=== PATIENT | female | born 1950 | race Caucasian/White ===

== ENCOUNTER 2016-12-22 21:40 | Inpatient (IN) | payer OTHER ==
[~2016-12-22] VITALS: Ht 160 cm; Wt 98.7 kg
[~2016-12-22 21:40] MED LIST: ALBINS/ INH; ALBU18002 PO; CHOL400T PO; CYAN100T PO; GABA-112 PO; HYDR25TA4 PO; LOSA50TA6 PO; SIMV40TA4 PO; SPRIN/30 INH
[2016-12-22] MEDS ORDERED: SODIUM CHLORIDE 0.9% 500ML 500 ML IV STA (22:03)
[2016-12-22] MEDS ORDERED: METHYLPREDNISOLONE 125 MG VIAL IV STA (22:03)
[2016-12-22] MEDS ORDERED: AZITHROMYCIN 250 MG TAB PO STA (22:03)
[2016-12-22 22:11] LABS: BASO % 0.3 %; BASO ABS # 0.04 K/uL (0-0.2); COMPLETE YES; EOS % 14.8 %; HEMATOCRIT 38.6 % (37-47); IG% 0.3 %; LYMPH % 26.2 %; LYMPH ABS # 3.56 K/uL (1.2-3.4); MEAN CELL VOLUME 89.1 fL (80-100); MEAN CORPUSCULAR HEMOGLOBIN 29.6 pg (25-34); MEAN CORPUSCULAR HGB CONC 33.2 g/dl (32-36); MEAN PLATELET VOLUME 9.9 fL (7.4-10.4); MONO % 8.7 %; NEUT % 49.7 %; PLATELET COUNT 290 K/uL (130-400); RED BLOOD COUNT 4.33 M/uL (4.2-5.4); WHITE BLOOD COUNT 13.61 K/uL (4.8-10.8)
[2016-12-22] MEDS ORDERED: ALBUT/IPRATROP 3MG/0.5MG NEB 3 ML VIAL INH ONE (22:15)
[2016-12-22 22:20] LABS: BUN/CREATININE RATIO 13.9 (10-20); CALCIUM 9.3 mg/dl (8.5-10.1); CREATININE 0.87 mg/dl (0.60-1.20); POTASSIUM 3.2 mmol/L (3.5-5.1)
[2016-12-22 22:23] LABS: PARTIAL THROMBOPLASTIN RATIO 1.2; PROTHROMBIN TIME (PATIENT) 10.7 SECONDS (9.0-12.0)
--- NOTE | 2016-12-22 22:43 | DIAGNOSTIC IMAGING REPORT ---
CHEST ONE VIEW PORTABLE CLINICAL HISTORY: EVALUATE RESPIRATORY DISTRESS.DYSPNEA COMPARISON STUDY: 01/15/2016 FINDINGS: The bones soft tissues and hemidiaphragms are normal. The cardiomediastinal silhouette is normal. The lungs are clear. The pulmonary vasculature is normal. IMPRESSION: Negative chest. The above report was generated using voice recognition software. It may contain grammatical, syntax or spelling errors. Electronically signed by: Omid Gold M.D. 12/22/2016 10:41 PM Dictated Date/Time: 12/22/2016 10:41 PM
[2016-12-22] MEDS ORDERED: ALUMINUM/MAGNESIUM SUSP 30 ML UDC ONE (22:53)
[2016-12-22] MEDS ORDERED: LIDOCAINE HCL 2% VISC SOLN 20 ML UDC ONE (22:53)
[2016-12-22 22:56] VITALS: PULSE 99; O2SAT 95
[2016-12-22 23:14] LABS: URINE APPEARANCE CLEAR (CLEAR); URINE BILIRUBIN NEG (NEG); URINE COLOR YELLOW; URINE EPITHELIAL CELL AUTO 0-5 /lpf (0-5); URINE NITRITE NEG (NEG); URINE PH 8.5 (4.5-7.5); URINE SPECIFIC GRAVITY 1.012 (1.000-1.030); UROBILINOGEN NEG (NEG)
[2016-12-22 23:15] LABS: MANUAL MICROSCOPIC REQUIRED? NO; REVIEW REQ? NO
[2016-12-22] MEDS ORDERED: POTASSIUM CHLORIDE 10 MEQ TABCR PO STA (23:23)
[2016-12-23] VITALS (10 sets, daily range): BP systolic 113–167; BP diastolic 67–84; PULSE 58–122; TEMP 36.3–37; O2SAT 89–97; Ht 160 cm; Wt 98.7 kg
--- NOTE | 2016-12-23 00:41 | EMERGENCY ROOM VISIT NOTE ---
History Report prepared by Mikey: Sharon Zhang Under the Supervision of: Dr. Franky Wilder M.D. First contact with patient: 21:56 Chief Complaint: SHORTNESS OF BREATH Stated Complaint: SOB Nursing Triage Summary: c/o SOB x 1 month and was seen by pcp. pt was told that she has fluid on her lungs. tonight at pt felt very weak, lightheaded and SOB worsened. History of Present Illness The patient is a 66 year old white female with a past medical history of COPD, hypertension, high cholesterol, restless leg who presents to the ED with a cc of waxing and waning SOB beginning 1 month ago. Positive cough productive of white foamy sputum, pain under left breast, back pain. She has been having a hard time having bowel movements. Negative fever, chills, leg swelling. She quit smoking 1.5 years ago. She denies any history of blood clots. She is not on oxygen at home. Source of History: patient Onset: 1 month ago Position: other (global) Quality: other (SOB) Timing: waxes/wanes Associated Symptoms: + cough, + chest pain, + back pain, No fevers, No chills Review of Systems See HPI for pertinent positives and negatives. A total of ten systems were reviewed and were otherwise negative. Past Medical & Surgical Medical Problems: (1) COPD (chronic obstructive pulmonary disease) Family History No pertinent family history stated. Social History Smoking Status: Former Smoker Marital Status: Housing Status: lives with significant other Current/Historical Medications Scheduled Albuterol Sulf (Proventil 0.083% 2.5MG/3ML), 2.5 MG INH Q4 Albuterol Sulfate (Proair Respiclick), 2 PUFF PO QD Cholecalciferol (Vitamin D), 400 MG PO DAILY Cyanocobalamin (Vitamin B-12), 100 MCG PO DAILY Gabapentin (Neurontin), 300 MG PO HS Hydrochlorothiazide (Hctz), 25 MG PO QAM Losartan Potassium (Cozaar), 50 MG PO QAM Simvastatin (Zocor), 40 MG PO QPM Tiotropium [place] (Spiriva Handihaler), 1 CAP INH DAILY Allergies Coded Allergies: No Known Allergies (Unverified , 12/22/16) Physical Exam Vital Signs Date Time Temp Pulse Resp B/P (MAP) Pulse Ox O2 Delivery O2 Flow Rate FiO2 12/23/16 00:49 138 20 143/86 88 Room Air 12/22/16 23:02 99 20 104/89 98 Nebulizer 15.0 12/22/16 23:02 85 Room Air 12/22/16 22:56 99 20 95 Nasal Cannula 1.0 12/22/16 22:09 107 12/22/16 21:54 93 Nasal Cannula 2.0 12/22/16 21:47 93 Room Air 12/22/16 21:46 95 Nasal Cannula 2.0 12/22/16 21:45 36.8 112 20 158/81 92 Room Air Physical Exam GENERAL: Awake, alert, well-appearing, NAD HENT: Normocephalic, atraumatic. EYES: Normal conjunctiva. Sclera non-icteric. NECK: Supple. No nuchal rigidity. FROM. RESPIRATORY: Diffuse wheezing throughout CARDIAC: Tachycardic and regular, no MRG ABDOMEN: Soft, NTND, BS+ MSK: No chest wall TTP, no LE edema NEURO: GCS 15, CN 2-12 intact, moves all 4s on command SKIN: No rash or jaundice noted. Medical Decision & Procedures ER Provider Diagnostic Interpretation: Radiology results as stated below per my review and radiologist interpretation: CHEST ONE VIEW PORTABLE CLINICAL HISTORY: EVALUATE RESPIRATORY DISTRESS.DYSPNEA COMPARISON STUDY: 01/15/2016 FINDINGS: The bones soft tissues and hemidiaphragms are normal. The cardiomediastinal silhouette is normal. The lungs are clear. The pulmonary vasculature is normal. IMPRESSION: Negative chest. The above report was generated using voice recognition software. It may contain grammatical, syntax or spelling errors. Electronically signed by: Omid Gold M.D. 12/22/2016 10:41 PM Dictated Date/Time: 12/22/2016 10:41 PM Laboratory Results 12/22/16 21:54 Red Blood Count 4.33, Mean Corpuscular Volume 89.1, Mean Corpuscular Hemoglobin 29.6, Mean Corpuscular Hemoglobin Concent 33.2, Mean Platelet Volume 9.9, Neutrophils (%) (Auto) 49.7, Lymphocytes (%) (Auto) 26.2, Monocytes (%) (Auto) 8.7, Eosinophils (%) (Auto) 14.8, Basophils (%) (Auto) 0.3, Neutrophils # (Auto ) 6.78, Lymphocytes # (Auto) 3.56, Monocytes # (Auto) 1.18, Eosinophils # (Auto ) 2.01, Basophils # (Auto) 0.04 12/22/16 21:54 Test 12/22/16 21:54 12/22/16 22:55 12/23/16 00:53 White Blood Count 13.61 K/uL (4.8-10.8) Red Blood Count 4.33 M/uL (4.2-5.4) Hemoglobin 12.8 g/dL (12.0-16.0) Hematocrit 38.6 % (37-47) Mean Corpuscular Volume 89.1 fL (80-100) Mean Corpuscular Hemoglobin 29.6 pg (25-34) Mean Corpuscular Hemoglobin Concent 33.2 g/dl (32-36) Platelet Count 290 K/uL (130-400) Mean Platelet Volume 9.9 fL (7.4-10.4) Neutrophils (%) (Auto) 49.7 % Lymphocytes (%) (Auto) 26.2 % Monocytes (%) (Auto) 8.7 % Eosinophils (%) (Auto) 14.8 % Basophils (%) (Auto) 0.3 % Neutrophils # (Auto) 6.78 K/uL (1.4-6.5) Lymphocytes # (Auto) 3.56 K/uL (1.2-3.4) Monocytes # (Auto) 1.18 K/uL (0.11-0.59) Eosinophils # (Auto) 2.01 K/uL (0-0.5) Basophils # (Auto) 0.04 K/uL (0-0.2) RDW Standard Deviation 49.0 fL (36.4-46.3) RDW Coefficient of Variation 15.2 % (11.5-14.5) Immature Granulocyte % (Auto) 0.3 % Immature Granulocyte # (Auto) 0.04 K/uL (0.00-0.02) Prothrombin Time 10.7 SECONDS (9.0-12.0) Prothromb Time International Ratio 1.0 (0.9-1.1) Activated Partial Thromboplast Time 30.6 SECONDS (21.0-31.0) Partial Thromboplastin Ratio 1.2 Anion Gap 9.0 mmol/L (3-11) Est Creatinine Clear Calc Drug Dose 72.0 ml/min Estimated GFR () 80.5 Estimated GFR (Non- 69.4 BUN/Creatinine Ratio 13.9 (10-20) Calcium Level 9.3 mg/dl (8.5-10.1) Total Bilirubin 0.3 mg/dl (0.2-1) Aspartate Amino Transf (AST/SGOT) 24 U/L (15-37) Alanine Aminotransferase (ALT/SGPT) 34 U/L (12-78) Alkaline Phosphatase 101 U/L (45-117) Troponin I 0.017 ng/ml (0-0.045) Pro-B-Type Natriuretic Peptide 57 pg/ml (0-900) Total Protein 7.0 gm/dl (6.4-8.2) Albumin 3.5 gm/dl (3.4-5.0) Globulin 3.5 gm/dl (2.5-4.0) Albumin/Globulin Ratio 1.0 (0.9-2) Urine Color YELLOW Urine Appearance CLEAR (CLEAR) Urine pH 8.5 (4.5-7.5) Urine Specific [place] 1.012 (1.000-1.030) Urine Protein NEG (NEG) Urine Glucose (UA) NEG (NEG) Urine Ketones NEG (NEG) Urine Occult Blood NEG (NEG) Urine Nitrite NEG (NEG) Urine Bilirubin NEG (NEG) Urine Urobilinogen NEG (NEG) Urine Leukocyte Esterase TRACE (NEG) Urine WBC (Auto) 1-5 /hpf (0-5) Urine RBC (Auto) 0-4 /hpf (0-4) Urine Hyaline Casts (Auto) 0 /lpf (0-5) Urine Epithelial Cells (Auto) 0-5 /lpf (0-5) Urine Bacteria (Auto) NEG (NEG) Laboratory results reviewed by me Medications Administered Medications (Trade) Dose Ordered Sig/Juan Carlos Route Start Time Stop Time Status Last Admin Dose Admin Albuterol/ Ipratropium (Duoneb) 12 ml ONE ONCE INH 12/22/16 22:15 12/22/16 22:16 DC 12/22/16 22:55 12 ML Azithromycin (Zithromax Tab) 500 mg NOW STAT PO 12/22/16 22:03 12/22/16 22:05 DC 12/22/16 22:14 500 MG Sodium Chloride 500 ml @ 999 mls/hr Q31M STAT IV 12/22/16 22:03 12/22/16 22:33 DC 12/22/16 22:14 999 MLS/HR Al Hydroxide/Mg Hydroxide (Maalox Susp) 30 ml STK-MED ONCE .ROUTE 12/22/16 22:53 12/22/16 22:54 DC 12/22/16 22:56 30 ML Lidocaine HCl (Viscous Lidocaine 2% Soln) 20 ml STK-MED ONCE .ROUTE 12/22/16 22:53 12/22/16 22:54 DC 12/22/16 22:56 20 ML Potassium Chloride (Klor-Con M10) 40 meq NOW STAT PO 12/22/16 23:23 12/22/16 23:25 DC 12/23/16 00:38 40 MEQ ECG Indication: SOB/dyspnea Rate (beats per minute): 104 Rhythm: sinus tachycardia Findings: no ectopy, other (normal axis, no STS changes or TWI) ED Course 2157: The patient was evaluated in room B3B. A complete history and physical exam was performed. 2310: I reevaluated the patient. She is feeling better. 0011: I reevaluated the patient. I discussed the test results and treatment plan with her. The patient will be evaluated for further management. 0029: I [facility] the [facility]'s [facility] The patient will be evaluated for further treatment and disposition. Medical Decision Differential diagnosis: Etiologies such as infections, reactive airway disease, pneumonia, pneumothorax , COPD, CHF, cardiac ischemia, pulmonary embolism, musculoskeletal, gastrointestinal, as well as others were entertained. The patient is a 66 year old white female with a past medical history of COPD, hypertension, high cholesterol, restless leg who presents to the ED with a cc of waxing and waning SOB beginning 1 month ago. Patient was seen and evaluated at the bedside. Patient was complaints of shortness of breath beginning insidiously and progressively worsening 1 month. Patient has had a productive cough with white sputum. Patient denies hemoptysis, lower extremity swelling, recent travel. Patient has stated she's been taking some steroids over the last month. Patient states she has follow- up see a gut dropper that she has a history of COPD but is not formally and evaluated by lung physician. Patient has been a nonsmoker since 2015. She was a former smoker. Patient was evaluated with blood work, chest x-ray. Patient was also given IV fluids, do, mag, steroids, and azithromycin. Patient was reassessed and patient's exam improved and the patient was feeling better. Patient was told or hypoxic and required oxygen at baseline. However, the patient was fairly tachycardic in the 130s and 140s. Upon further questioning patient again denies any history of PE or DVT. Her albuterol use is likely somewhat related to her tachycardia however given that it is closer max heart rate I spoke with the hospitalist who agreed to admit the patient for further evaluation and treatment. Patient was admitted. Medication Reconcilliation Current Medication List: was personally reviewed by me Blood Pressure Screening Patient's blood pressure: Normal blood pressure Blood pressure disposition: Did not require urgent referral Consults Time Called: 0023 Consulting Physician: Dr. Hernandez [facility] hospitalist Returned Call: 0029 Discussed the patient's case. The patient will be evaluated for further treatment and disposition. Impression Primary Impression: COPD exacerbation Additional Impressions: Tachycardia Respiratory failure with hypoxia Scribe Attestation The scribe's documentation has been prepared under my direction and personally reviewed by me in its entirety. I confirm that the note above accurately reflects all work, treatment, procedures, and medical decision making performed by me. Departure Information Dispostion Being Evaluated By Hospitalist Referrals Catrachita Ferguson M.D. (MEDICAL) (PCP) Patient Instructions My [facility] Problem Qualifiers Additional Impressions: Respiratory failure with hypoxia Chronicity: acute Qualified Codes: J96.01 - Acute respiratory failure with hypoxia
[2016-12-23] MEDS ORDERED: LACTATED RINGER'S 1000ML 1,000 ML IV ONE (01:00)
[2016-12-23] MEDS ORDERED: DOXYCYCLINE HYCLATE 100 MG CAP PO STA (01:46)
[2016-12-23] MEDS ORDERED: GUAIFENESIN 600 MG TABCR PO STA (01:46)
[2016-12-23 01:51] LABS: ARTERIAL BLD GAS O2 SATURATION 95.2 % (90-95); ARTERIAL BLOOD GAS BASE EXCESS 0.6 mEq/L (-9-1.8); ARTERIAL BLOOD GAS HCO3 24 mmol/L (19-24); ARTERIAL BLOOD GAS PO2 77 mm/Hg (80-95); ARTERIAL BLOOD GAS pH 7.45 (7.35-7.45)
[2016-12-23 01:53] LABS: ALLEN TEST POS (POS)
[2016-12-23 01:56] LABS: O2 ADMINISTRATION ROOM AIR
[2016-12-23] MEDS ORDERED: ACETAMINOPHEN 325 MG TAB PO PRN (02:45)
[2016-12-23] MEDS ORDERED: LEVALBUTEROL/IPRATROPIUM NEB INH PRN (02:45)
[2016-12-23] MEDS ORDERED: TRAMADOL HCL 50 MG TAB PO PRN (02:45)
[2016-12-23] MEDS ORDERED: MoRPHine SULFATE 4 MG/ML 1 ML CARP\\VIAL IV PRN (02:45)
--- NOTE | 2016-12-23 02:47 | Progress Note ---
Progress Note Post Crystalloid Evaluation Date: Dec 23, 2016 Time: 02:50 Subjective Cough productive of white to dull [place] to yellow sputum SOB Physical Exam Vital Signs: Vital Signs Date Time Temp Pulse Resp B/P (MAP) Pulse Ox O2 Delivery O2 Flow Rate FiO2 12/23/16 02:33 117 20 128/70 94 Nasal Cannula 2.0 12/22/16 21:45 36.8 Lungs: + decreased breath sounds Heart: + tachycardia Peripheral Pulse: Normal Skin: Unremarkable Assessment & Plan Presence of: Severe Sepsis Severe sepsis SIRS plus hypoxemia plus lactic acidosis secondary to chronic obstructive pulmonary disease exacerbation/complicated bronchitis CS, doxycycline, nebs, steroids. IVF, Follow lactic acid
[2016-12-23] MEDS ORDERED: OPTIRAY 320 IV PRN (03:00)
[2016-12-23] MEDS ORDERED: LEVALBUTEROL/IPRATROPIUM NEB INH SCH (03:00)
[2016-12-23] MEDS ORDERED: PANTOprazole SOD 40 MG TAB PO ONE (03:00)
[2016-12-23] MEDS ORDERED: LACTATED RINGER'S 1000ML 1,000 ML IV SCH (03:15)
[2016-12-23] MEDS ORDERED: LEVALBUTEROL 1.25MG/0.5ML NEB INH PRN (03:30)
[2016-12-23] MEDS ORDERED: IPRATROPIUM BROMIDE NEB SOLN 0.02% 2.5 ML VIAL INH PRN (03:30)
[2016-12-23] MEDS: BENZONATATE 100MG CAP PO PRN (05:50)
--- NOTE | 2016-12-23 05:51 | DIAGNOSTIC IMAGING REPORT ---
(CHEST FOR PE) ANGIO WITH CT DOSE: 835.45 mGy.cm HISTORY: Chest pain dyspnea TECHNIQUE: Multiaxial CT images of the chest were performed following the intravenous administration of contrast to evaluate the pulmonary arteries. Maximal intensity projection images were also obtained. A dose lowering technique was utilized adhering to the principles of ALARA. COMPARISON STUDY: None. FINDINGS: Moderate ectasia thoracic aorta. No evidence for dissection. Small hiatal hernia. The pulmonary vasculature enhances appropriately. The lungs are considered clear. No focal infiltrate. IMPRESSION: No evidence for pulmonary embolus. The lungs are clear. Small hiatal hernia. The above report was generated using voice recognition software. It may contain grammatical, syntax or spelling errors. Electronically signed by: Omid Gold M.D. 12/23/2016 5:50 AM Dictated Date/Time: 12/23/2016 5:47 AM
[2016-12-23 05:59] LABS: BASO % 0.1 %; BASO ABS # 0.01 K/uL (0-0.2); COMPLETE YES; EOS % 0.6 %; HEMATOCRIT 37.5 % (37-47); IG% 0.6 %; LYMPH % 8.9 %; LYMPH ABS # 0.96 K/uL (1.2-3.4); MEAN CELL VOLUME 89.7 fL (80-100); MEAN CORPUSCULAR HEMOGLOBIN 29.7 pg (25-34); MEAN CORPUSCULAR HGB CONC 33.1 g/dl (32-36); MEAN PLATELET VOLUME 9.9 fL (7.4-10.4); NEUT % 88.8 %; PLATELET COUNT 294 K/uL (130-400); RED BLOOD COUNT 4.18 M/uL (4.2-5.4); WHITE BLOOD COUNT 10.75 K/uL (4.8-10.8)
[2016-12-23 06:17] LABS: INFLUENZA A PCR Neg for Influ A (NEG); INFLUENZA B PCR Neg for Influ B (NEG)
[2016-12-23 06:23] LABS: BUN/CREATININE RATIO 9.3 (10-20); CALCIUM 9.1 mg/dl (8.5-10.1); CREATININE 0.97 mg/dl (0.60-1.20); POTASSIUM 3.6 mmol/L (3.5-5.1)
[2016-12-23] MEDS: IPRATROPIUM BROMIDE NEB SOLN 0.02% 2.5 ML VIAL INH SCH ×3 (07:17→19:40)
[2016-12-23] MEDS: LEVALBUTEROL 1.25MG/0.5ML NEB INH SCH ×3 (07:18→19:40)
[2016-12-23] MEDS: GUAIFENESIN SUGAR FREE 100 MG/5 ML UDC PO PRN (07:40)
[2016-12-23] MEDS: ENOXAPARIN 40 MG/0.4 ML SYR SC SCH (08:30)
[2016-12-23] MEDS: LOSARTAN POTASSIUM 50 MG TAB PO SCH (08:30)
--- NOTE | 2016-12-23 08:58 | HISTORY & PHYSICAL EXAMINATION ---
DATE OF ADMISSION: 12/23/2016 PRIMARY CARE PHYSICIAN: Dr. Ferguson. CHIEF COMPLAINT: Cough, shortness of breath. HISTORY OF PRESENT ILLNESS: History obtained from the patient and records. Medical history significant for COPD, hypertension, past tobacco abuse, reflux. In the last month, the patient noted to have cough productive of clear to white to dull [place] sputum to yellow sputum, increasing shortness of breath and wheezing, some nasal congestion. Denies aspiration. Outpatient courses of steroids and antibiotics consisting of Augmentin and doxycycline. Last day of prednisone was a few days ago. Transient improvement of symptoms, occasional complaints of pleuritic, left-sided back pain. Uncontrolled reflux symptoms as per patient. Denies flulike symptoms. Recent seasonal flu vaccine. Patient denies unusual leg swelling or weight gain. Outpatient chest x-ray from December 14 showed mild prominence of interstitial markings, no pneumothorax, trace bilateral pleural effusions. Possible need for lung specialist as per recent communication with PCP. Tonight she had worsening symptoms. Patient noted to be hypoxemic at the ER. Patient received azithromycin, DuoNebs, Solu-Medrol for COPD exacerbation. MEDICAL HISTORY: As above. SURGERIES: She has had bilateral tubal ligation. HOME MEDICATIONS: Include simvastatin, losartan, HCTZ, Spiriva, gabapentin, albuterol, Zantac as per patient. ALLERGIES: No known drug allergies. FAMILY HISTORY: There is a family history of heart disease, COPD, colon cancer, and diabetes. PERSONAL AND SOCIAL HISTORY: Past tobacco abuse. No chronic intake of alcoholic beverages. REVIEW OF SYSTEMS: As per HPI, all other ROS negative. PHYSICAL EXAMINATION: VITAL SIGNS: Blood pressure was noted to be 158/81; pulse rate 112, later 130 RR 20; temperature 36.8; sats 88 on room air, later 94 on 2 liters. GENERAL: Noted to be obese, slightly anxious, no overt respiratory distress. SKIN: Normal color, warm. HEENT: [place] palpebral conjuctivae. No ptosis. Dry buccal mucosa. Nasal cannula in place NECK: Short neck, nontender. CHEST: Decreased breath sounds. No chest wall tenderness. CV: Tachycardic, palpable LE pulses. ABDOMEN: Some distention, nontender. EXTREMITIES: No edema, no tenderness, no gross deformities. NEUROLOGIC: Coherent, no gross focality. LABORATORIES: Hemoglobin was noted to be 12.8, hematocrit 38.6, white cell count 13.6, platelets 290. Sodium 141, potassium 3.2, chloride 105, CO2 28, BUN 12, creatinine 0.8, glucose 123. Lactic acid was noted to be 4.8. Chest x-ray, no infiltrate. EKG as per my interpretation, rate 105, sinus tachycardia, T-wave flattening in the lateral leads, low voltage. ASSESSMENT: 1. Severe sepsis SIRS plus hypoxemia plus lactic acidosis secondary to chronic obstructive pulmonary disease exacerbation recurrent symptoms the last few weeks recent outpatient steroid and antibiotic courses uncontrolled GERD possibly contributory to chronic obstructive pulmonary disease exacerbation rule out pulmonary embolism with pleuritic back pain symptoms as precipitant. 2. Hypertension, stable. 3. Hypokalemia secondary to diuretic therapy. 4. Past tobacco abuse. PLAN: PCU supplemental O2 baseline ABG CS, doxycycline, nebs, steroids. IVF, Follow lactic acid Replace potassium. Hold home diuretics for now. PPI trial CT chest, PE study. Pulmonary consult for respiratory failure/recurrent COPD exacerbation. DVT prophylaxis, Lovenox subQ. Full code. MTDD
[2016-12-23] MEDS ORDERED: GABAPENTIN 300 MG CAP PO ONE (10:08)
--- NOTE | 2016-12-23 11:30 | Progress Note ---
Medicine Progress Note Date & Time of Visit: Dec 23, 2016 at 11:10 . Subjective Admitted last night with exacerbation of COPD despite 2 recent outpatient courses of antibiotics + steroids. Feels less SOB today, but has persistent nonproductive cough. No fever. No chest pain. No nausea, vomiting, diarrhea. . Objective Last 8 Hrs Date Time Temp Pulse Resp B/P (MAP) Pulse Ox O2 Delivery O2 Flow Rate FiO2 12/23/16 08:00 93 Nasal Cannula 2.0 12/23/16 07:27 36.8 119 18 123/76 (92) 93 Nasal Cannula 2.0 12/23/16 07:18 115 20 94 Nasal Cannula 3.0 12/23/16 05:32 114 20 94 Nasal Cannula 2.0 12/23/16 04:00 Nasal Cannula 2.0 12/23/16 03:32 37.0 122 20 136/84 89 Room Air Physical Exam: General- no acute distress ENT- no oral thrush Neck- no JVD Lungs- diffuse mild wheezing Heart- RRR, tachy Abdomen- + BS, soft, nontender Extremities- no pretibial edema or calf tenderness Neuro- alert . Laboratory Results: Last 24 Hours Test 12/22/16 21:54 12/22/16 22:55 12/23/16 01:22 12/23/16 01:38 White Blood Count 13.61 K/uL Red Blood Count 4.33 M/uL Hemoglobin 12.8 g/dL Hematocrit 38.6 % Mean Corpuscular Volume 89.1 fL Mean Corpuscular Hemoglobin 29.6 pg Mean Corpuscular Hemoglobin Concent 33.2 g/dl Platelet Count 290 K/uL Mean Platelet Volume 9.9 fL Neutrophils (%) (Auto) 49.7 % Lymphocytes (%) (Auto) 26.2 % Monocytes (%) (Auto) 8.7 % Eosinophils (%) (Auto) 14.8 % Basophils (%) (Auto) 0.3 % Neutrophils # (Auto) 6.78 K/uL Lymphocytes # (Auto) 3.56 K/uL Monocytes # (Auto) 1.18 K/uL Eosinophils # (Auto) 2.01 K/uL Basophils # (Auto) 0.04 K/uL RDW Standard Deviation 49.0 fL RDW Coefficient of Variation 15.2 % Immature Granulocyte % (Auto) 0.3 % Immature Granulocyte # (Auto) 0.04 K/uL Prothrombin Time 10.7 SECONDS Prothromb Time International Ratio 1.0 Activated Partial Thromboplast Time 30.6 SECONDS Partial Thromboplastin Ratio 1.2 Sodium Level 141 mmol/L Potassium Level 3.2 mmol/L Chloride Level 105 mmol/L Carbon Dioxide Level 28 mmol/L Anion Gap 9.0 mmol/L Blood Urea Nitrogen 12 mg/dl Creatinine 0.87 mg/dl Est Creatinine Clear Calc Drug Dose 72.0 ml/min Estimated GFR () 80.5 Estimated GFR (Non- 69.4 BUN/Creatinine Ratio 13.9 Random Glucose 123 mg/dl Calcium Level 9.3 mg/dl Total Bilirubin 0.3 mg/dl Aspartate Amino Transf (AST/SGOT) 24 U/L Alanine Aminotransferase (ALT/SGPT) 34 U/L Alkaline Phosphatase 101 U/L Troponin I 0.017 ng/ml Pro-B-Type Natriuretic Peptide 57 pg/ml Total Protein 7.0 gm/dl Albumin 3.5 gm/dl Globulin 3.5 gm/dl Albumin/Globulin Ratio 1.0 Urine Color YELLOW Urine Appearance CLEAR Urine pH 8.5 Urine Specific [place] 1.012 Urine Protein NEG Urine Glucose (UA) NEG Urine Ketones NEG Urine Occult Blood NEG Urine Nitrite NEG Urine Bilirubin NEG Urine Urobilinogen NEG Urine Leukocyte Esterase TRACE Urine WBC (Auto) 1-5 /hpf Urine RBC (Auto) 0-4 /hpf Urine Hyaline Casts (Auto) 0 /lpf Urine Epithelial Cells (Auto) 0-5 /lpf Urine Bacteria (Auto) NEG Magnesium Level 2.0 mg/dl Thyroid Stimulating Hormone (TSH) 1.000 uIu/ml Arterial Blood pH 7.45 Arterial Blood Partial Pressure CO2 35 mmHg Arterial Blood Partial Pressure O2 77 mm/Hg Arterial Blood HCO3 24 mmol/L Arterial Blood Oxygen Saturation 95.2 % Arterial Blood Base Excess 0.6 mEq/L Arterial Blood Gas Delivery ROOM AIR Sammy Test POS Lactic Acid Level 4.8 mmol/L Test 12/23/16 04:45 12/23/16 05:45 12/23/16 05:46 12/23/16 11:03 Influenza Type A (RT-PCR) Neg for Influ A Influenza Type A Antigen Neg for Influ A Influenza Type B Antigen Neg for Influ B Influenza Type B (RT-PCR) Neg for Influ B Sodium Level 142 mmol/L Potassium Level 3.6 mmol/L Chloride Level 108 mmol/L Carbon Dioxide Level 23 mmol/L Anion Gap 11.0 mmol/L Blood Urea Nitrogen 9 mg/dl Creatinine 0.97 mg/dl Est Creatinine Clear Calc Drug Dose 63.8 ml/min Estimated GFR () 70.5 Estimated GFR (Non- 60.9 BUN/Creatinine Ratio 9.3 Random Glucose 170 mg/dl Calcium Level 9.1 mg/dl White Blood Count 10.75 K/uL Red Blood Count 4.18 M/uL Hemoglobin 12.4 g/dL Hematocrit 37.5 % Mean Corpuscular Volume 89.7 fL Mean Corpuscular Hemoglobin 29.7 pg Mean Corpuscular Hemoglobin Concent 33.1 g/dl Platelet Count 294 K/uL Mean Platelet Volume 9.9 fL Neutrophils (%) (Auto) 88.8 % Lymphocytes (%) (Auto) 8.9 % Monocytes (%) (Auto) 1.0 % Eosinophils (%) (Auto) 0.6 % Basophils (%) (Auto) 0.1 % Neutrophils # (Auto) 9.55 K/uL Lymphocytes # (Auto) 0.96 K/uL Monocytes # (Auto) 0.11 K/uL Eosinophils # (Auto) 0.06 K/uL Basophils # (Auto) 0.01 K/uL RDW Standard Deviation 49.7 fL RDW Coefficient of Variation 15.2 % Immature Granulocyte % (Auto) 0.6 % Immature Granulocyte # (Auto) 0.06 K/uL Lactic Acid Level 5.8 mmol/L Date/Time Source Procedure Growth Status 12/23/16 01:38 Blood Blood Culture Pending Received 12/23/16 01:22 Blood Blood Culture Pending Received Assessment & Plan EXACERBATION OF ASTHMA No pulmonary infiltrates on either plain films or CT. O2 sats as low as 85% on RA in ED. Received IV methylprednisolone, nebs, antibiotics with improvement. Currently receiving prednisone 40 mg daily, levalbuterol / ipratropium nebs, doxycycline. Pulmonary Medicine consulted. ELEVATED SERUM LACTATE Serum lactate 4.8, 5.8. Does not appear to be septic. Elevated lactate could be secondary to albuterol per Pulmonary Medicine. Procalcitonin ordered- results pending. HYPOKALEMIA Serum potassium 3.2 at time of admission. Could have potassium loss secondary to HCTZ as well as extra --> intracellular shift secondary to albuterol. Replace. Follow. HYPERTENSION Holding HCTZ due to exacerbation of asthma + hypokalemia. Continue losartan. GERD Continue PPI. VTE PROPHYLAXIS SQ enoxaparin. Ambulate. DISPOSITION Expected discharge to home. Family Medicine follow-up with Dr. Ferguson. . Current Inpatient Medications: Current Inpatient Medications Medications (Trade) Dose Ordered Sig/Juan Carlos Route Start Time Stop Time Status Last Admin Dose Admin Doxycycline Hyclate (Vibramycin Cap) 100 mg BID PO 12/23/16 21:00 12/30/16 20:59 Guaifenesin (Mucinex Contr Rel Tab) 600 mg Q12 PO 12/23/16 21:00 01/22/17 20:59 Ioversol (Optiray 320) 125 ml UD PRN IV 12/23/16 03:00 12/27/16 02:59 Enoxaparin Sodium (Lovenox Inj) 40 mg Q24H SC 12/23/16 09:00 01/22/17 08:59 Acetaminophen (Tylenol Tab) 650 mg Q4H PRN PO 12/23/16 02:45 01/22/17 02:44 Gabapentin (Neurontin Cap) 300 mg HS PO 12/23/16 21:00 01/22/17 20:59 Losartan Potassium (coZAAR TAB) 50 mg QAM PO 12/23/16 09:00 01/22/17 08:59 12/23/16 08:30 50 MG Simvastatin (Zocor Tab) 40 mg QPM PO 12/23/16 21:00 01/22/17 20:59 Prednisone (PredniSONE TAB) 40 mg DAILY PO 12/23/16 09:00 12/28/16 08:59 12/23/16 08:30 40 MG Morphine Sulfate (MoRPHine SULFATE INJ) 4 mg Q3H PRN IV 12/23/16 02:45 01/06/17 02:44 Tramadol HCl (Ultram Tab) not relieved by tylenol @ Q6H PRN PO 12/23/16 02:45 01/22/17 02:44 Benzonatate (Tessalon Perles Cap) 100 mg Q8H PRN PO 12/23/16 02:45 01/22/17 02:44 12/23/16 05:50 100 MG Pantoprazole Sodium (Protonix Tab) 40 mg QAM PO 12/24/16 09:00 01/23/17 08:59 Ipratropium [place] (Atrovent 0.02% 0.5MG/2.5ML Neb) 0.5 mg Q6R INH 12/23/16 09:00 01/22/17 08:59 12/23/16 07:17 0.5 MG Levalbuterol (Xopenex 1.25MG/ 0.5ML Neb) 1.25 mg Q6R INH 12/23/16 09:00 01/22/17 08:59 12/23/16 07:18 1.25 MG Ipratropium [place] (Atrovent 0.02% 0.5MG/2.5ML Neb) 0.5 mg Q4H PRN INH 12/23/16 03:30 01/22/17 03:29 12/23/16 05:29 0.5 MG Levalbuterol (Xopenex 1.25MG/ 0.5ML Neb) 1.25 mg Q4H PRN INH 12/23/16 03:30 01/22/17 03:29 12/23/16 05:29 1.25 MG Guaifenesin (Robitussin Sugar Free Syrup) 100 mg Q6H PRN PO 12/23/16 06:30 01/22/17 06:29 12/23/16 07:40 100 MG
--- NOTE | 2016-12-23 14:14 | Pulmonary Consultation ---
History General Date of Service: Dec 23, 2016. Stated Complaint: Sepsis HPI The patient is a 66 year old female who presents to [facility] with complaints of Sepsis. The patient's primary care provider is Catrachita Ferguson M.D. (MEDICAL). Mrs. Garcia is a 60-year-old female who carries a diagnosis of COPD (FEV1 unknown, she is on Spiriva as well as albuterol) who presents with 1 month history of cough and productive sputum. She describes the sputum as white to moreland in color, sometimes yellow. Her symptoms are associated with increased shortness of breath, wheezing, chest tightness and pleuritic chest pain . She also admits to intermittent nasal congestion, increased GERD symptoms. Patient denies any hemoptysis. She denies any paroxysmal nocturnal dyspnea, lower extremity edema or orthopnea. She denies any sick contacts. She recently drove to [employer] from December 11-. She saw her primary care physician who prescribed her course of antibiotics consisting of Augmentin and doxycycline as well as a steroid taper for which she finished a few days ago. A chest x-ray done on 12/14/2016 showed increased interstitial markings, and trace to small bilateral pleural effusions. She had mild improvement of her symptoms. She does admit to recent weight gain of about 30 lbs over the last year, which was precipitated by loss of her son in February. Yesterday she says that her symptoms worsened and she came to the ER for further evaluation. From her respiratory standpoint her home medications include Spiriva and albuterol. Initial vital signs on arrival to the ER were temperature 36.8, pulse 112, respiratory rate of 20, blood pressure 158/81, saturating 92% on room air. She was placed on 2 L nasal cannula and pulse oximetry increased to 95%. Laboratory data showed a white blood cell count of 13.6, hemoglobin is 12, platelet count of 290. Chemistry significant for potassium of 3.2, BUN and creatinine were within normal limits. Random glucose 123. Liver function panel and coags were within normal limits. Troponin 0.017, pro BNP 57. Albumin 3.5. ABG was 7.45/35/77/24/95.2% on room air. Lactate was 4.8. Repeat this morning 5.8. Chest x-ray shows no cardiopulmonary disease. CT chest was negative for pulmonary embolism. Influenza A and B PCR is negative. Blood cultures are pending. In the ER she received 500 mL normal saline bolus, Ringer's lactate 2L, Solu- Medrol 125 mg 1 dose, azithromycin 500 mg by mouth 1 dose, doxycycline 100 mg by mouth and guaifenesin 600 mg 1 dose, DuoNeb 12 mg 1 dose, lidocaine viscous 20 mg, Maalox suspension, potassium chloride 40 mEq. She was admitted for COPD exacerbation. Continues on Tessalon Perles, Xopenex and ipratropium every 4 hours and when necessary, guaifenesin 100 mg every 6 hours when necessary, prednisone 40 mg daily, and doxycycline 100 mg twice a day. Vital signs since admission show a MAXIMUM TEMPERATURE of 37, blood pressure 123/76 to 144/87, pulse 114-138, pulse oximetry 88-95% on 2-3 L nasal cannula. Historian: patient, family Onset: last week Severity: moderate Complaint Status: persistent Review of Systems Constitutional: reports: as stated in HPI Eyes: reports: as stated in HPI ENT: reports: as stated in HPI Cardiovascular: reports: as stated in HPI Respiratory: reports: as stated in HPI Gastrointestinal: reports: as stated in HPI Genitourinary - Female: reports: as stated in HPI Musculoskeletal: reports: as stated in HPI Integumentary: reports: as stated in HPI Neurologic: reports: as stated in HPI Psychiatric: reports: as stated in HPI Endocrine: as stated in HPI Hematologic / Lymphatic: as stated in HPI Allergic / Immunologic: as stated in HPI All Other Symptoms All Other Systems: Reviewed and Negative Past Medical History Past Medical History: COPD Hypertension Gastric reflux Past Surgical History: History of tubal ligation. Family History His family history of heart disease, COPD, colon cancer and diabetes. Social History She has previous history of tobacco use disorder. She denies any alcohol or illicit drug use. Hx Tobacco Use In Past Year?: No Smoking Status: Former Smoker Marital status: History of MDRO History of MDRO: No Allergies Coded Allergies: No Known Allergies (Unverified , 12/22/16) Current Medications Reported Home Medications Medications Dose Route/Sig Max Daily Dose Days Date Category Vitamin D (Cholecalciferol) 400 Unit Tab 400 Mg PO DAILY 01/15/16 Reported Vitamin B-12 (Cyanocobalamin) 100 Mcg Tab 100 Mcg PO DAILY 01/15/16 Reported Proventil 0.083% 2.5MG/3ML (Albuterol Sulf) 2.5 Mg/3 Ml Nebu 2.5 Mg INH Q4 01/15/16 Reported Zocor (Simvastatin) 40 Mg Tab 40 Mg PO QPM 01/15/16 Reported Hctz (Hydrochlorothiazide) 25 Mg Tab 25 Mg PO QAM 01/15/16 Reported Proair Respiclick (Albuterol Sulfate) 108 Mcg/Act Aer 2 Puff PO QD 01/15/16 Reported Cozaar (Losartan Potassium) 50 Mg Tab 50 Mg PO QAM 01/15/16 Reported Neurontin (Gabapentin) 100 Mg Cap 300 Mg PO HS 01/15/16 Reported Spiriva Handihaler (Tiotropium Wagoner) 30 Puff/540 Mcg Aerp 1 Cap INH DAILY 01/15/16 Reported Physical Physical Exam Vital Signs: Date Time Temp Pulse Resp B/P (MAP) Pulse Ox O2 Delivery O2 Flow Rate FiO2 12/23/16 07:27 36.8 119 18 123/76 (92) 93 Nasal Cannula 2.0 12/23/16 07:18 115 20 94 Nasal Cannula 3.0 12/23/16 05:32 114 20 94 Nasal Cannula 2.0 12/23/16 04:00 Nasal Cannula 2.0 12/23/16 03:32 37.0 122 20 136/84 89 Room Air 12/23/16 02:33 117 20 128/70 94 Nasal Cannula 2.0 12/23/16 01:19 137 20 144/87 95 Room Air 12/23/16 00:49 138 20 143/86 88 Room Air 12/22/16 23:02 99 20 104/89 98 Nebulizer 15.0 12/22/16 23:02 85 Room Air 12/22/16 22:56 99 20 95 Nasal Cannula 1.0 12/22/16 22:09 107 12/22/16 21:54 93 Nasal Cannula 2.0 12/22/16 21:47 93 Room Air 12/22/16 21:46 95 Nasal Cannula 2.0 12/22/16 21:45 36.8 112 20 158/81 92 Room Air General Appearance: WELL-APPEARING, WD/WN, NO APPARENT DISTRESS Head: NORMOCEPHALIC, ATRAUMATIC Eyes: PERRLA, NO DISCHARGE, EOMI, SCLERAE NORMAL, CONJUNCTIVAE NORMAL ENT: NORMAL MOUTH EXAM, NORMAL THROAT EXAM Neck: NORMAL RANGE OF MOTION, NO TENDERNESS, TRACHEA MIDLINE, NO STRIDOR, SUPPLE Respiratory: CLEAR TO AUSCULTATION (prolonged expiratory phase, with faint expiratory wheezes.), NO RESPIRATORY DISTRESS Cardiovasular: REGULAR RATE/RHYTHM, NORMAL S1S2, NO M/G/R Abdomen: NON TENDER, NORMAL BOWEL SOUNDS, NO REBOUND, other (obese abdomen) Back: NORMAL INSPECTION, NO MIDLINE TENDERNESS Upper Extremities: NO EDEMA, NO DEFORMITY, NORMAL ROM, other (no clubbing, no cyanosis) Lower Extremities: NO EDEMA, NO DEFORMITY, NORMAL ROM Pulses: dorsalis pedis (R) (2+), dorsalis pedis (L) (2+) Neuro: ALERT, ORIENTED x 3, NORMAL SENSATION, NORMAL CEREBELLAR EXAM, NORMAL SPEECH, NORMAL GAIT, NORMAL MEMORY Psychiatric: NORMAL AFFECT, NO SUICIDAL IDEATION, CONTRACTS FOR SAFETY Diagnostics Labs Results Past 24 Hours Test 12/22/16 21:54 12/22/16 22:55 12/23/16 01:22 12/23/16 01:38 Range/Units White Blood Count 13.61 4.8-10.8 K/uL Red Blood Count 4.33 4.2-5.4 M/uL Hemoglobin 12.8 12.0-16.0 g/dL Hematocrit 38.6 37-47 % Mean Corpuscular Volume 89.1 80-100 fL Mean Corpuscular Hemoglobin 29.6 25-34 pg Mean Corpuscular Hemoglobin Concent 33.2 32-36 g/dl Platelet Count 290 130-400 K/uL Mean Platelet Volume 9.9 7.4-10.4 fL Neutrophils (%) (Auto) 49.7 % Lymphocytes (%) (Auto) 26.2 % Monocytes (%) (Auto) 8.7 % Eosinophils (%) (Auto) 14.8 % Basophils (%) (Auto) 0.3 % Neutrophils # (Auto) 6.78 1.4-6.5 K/uL Lymphocytes # (Auto) 3.56 1.2-3.4 K/uL Monocytes # (Auto) 1.18 0.11-0.59 K/uL Eosinophils # (Auto) 2.01 0-0.5 K/uL Basophils # (Auto) 0.04 0-0.2 K/uL RDW Standard Deviation 49.0 36.4-46.3 fL RDW Coefficient of Variation 15.2 11.5-14.5 % Immature Granulocyte % (Auto) 0.3 % Immature Granulocyte # (Auto) 0.04 0.00-0.02 K/uL Prothrombin Time 10.7 9.0-12.0 SECONDS Prothromb Time International Ratio 1.0 0.9-1.1 Activated Partial Thromboplast Time 30.6 21.0-31.0 SECONDS Partial Thromboplastin Ratio 1.2 Sodium Level 141 136-145 mmol/L Potassium Level 3.2 3.5-5.1 mmol/L Chloride Level 105 98-107 mmol/L Carbon Dioxide Level 28 21-32 mmol/L Anion Gap 9.0 3-11 mmol/L Blood Urea Nitrogen 12 7-18 mg/dl Creatinine 0.87 0.60-1.20 mg/dl Est Creatinine Clear Calc Drug Dose 72.0 ml/min Estimated GFR () 80.5 Estimated GFR (Non- 69.4 BUN/Creatinine Ratio 13.9 10-20 Random Glucose 123 70-99 mg/dl Calcium Level 9.3 8.5-10.1 mg/dl Total Bilirubin 0.3 0.2-1 mg/dl Aspartate Amino Transf (AST/SGOT) 24 15-37 U/L Alanine Aminotransferase (ALT/SGPT) 34 12-78 U/L Alkaline Phosphatase 101 45-117 U/L Troponin I 0.017 0-0.045 ng/ml Pro-B-Type Natriuretic Peptide 57 0-900 pg/ml Total Protein 7.0 6.4-8.2 gm/dl Albumin 3.5 3.4-5.0 gm/dl Globulin 3.5 2.5-4.0 gm/dl Albumin/Globulin Ratio 1.0 0.9-2 Urine Color YELLOW Urine Appearance CLEAR CLEAR Urine pH 8.5 4.5-7.5 Urine Specific Dazey 1.012 1.000-1.030 Urine Protein NEG NEG Urine Glucose (UA) NEG NEG Urine Ketones NEG NEG Urine Occult Blood NEG NEG Urine Nitrite NEG NEG Urine Bilirubin NEG NEG Urine Urobilinogen NEG NEG Urine Leukocyte Esterase TRACE NEG Urine WBC (Auto) 1-5 0-5 /hpf Urine RBC (Auto) 0-4 0-4 /hpf Urine Hyaline Casts (Auto) 0 0-5 /lpf Urine Epithelial Cells (Auto) 0-5 0-5 /lpf Urine Bacteria (Auto) NEG NEG Magnesium Level 2.0 1.8-2.4 mg/dl Thyroid Stimulating Hormone (TSH) 1.000 0.300-4.500 uIu/ml Arterial Blood pH 7.45 7.35-7.45 Arterial Blood Partial Pressure CO2 35 35-46 mmHg Arterial Blood Partial Pressure O2 77 80-95 mm/Hg Arterial Blood HCO3 24 19-24 mmol/L Arterial Blood Oxygen Saturation 95.2 90-95 % Arterial Blood Base Excess 0.6 -9-1.8 mEq/L Arterial Blood Gas Delivery ROOM AIR Sammy Test POS POS Lactic Acid Level 4.8 0.4-2.0 mmol/L Test 12/23/16 04:45 12/23/16 05:45 12/23/16 05:46 Range/Units Influenza Type A (RT-PCR) Neg for Influ A NEG Influenza Type A Antigen Neg for Influ A NEG Influenza Type B Antigen Neg for Influ B NEG Influenza Type B (RT-PCR) Neg for Influ B NEG Sodium Level 142 136-145 mmol/L Potassium Level 3.6 3.5-5.1 mmol/L Chloride Level 108 98-107 mmol/L Carbon Dioxide Level 23 21-32 mmol/L Anion Gap 11.0 3-11 mmol/L Blood Urea Nitrogen 9 7-18 mg/dl Creatinine 0.97 0.60-1.20 mg/dl Est Creatinine Clear Calc Drug Dose 63.8 ml/min Estimated GFR () 70.5 Estimated GFR (Non- 60.9 BUN/Creatinine Ratio 9.3 10-20 Random Glucose 170 70-99 mg/dl Calcium Level 9.1 8.5-10.1 mg/dl White Blood Count 10.75 4.8-10.8 K/uL Red Blood Count 4.18 4.2-5.4 M/uL Hemoglobin 12.4 12.0-16.0 g/dL Hematocrit 37.5 37-47 % Mean Corpuscular Volume 89.7 80-100 fL Mean Corpuscular Hemoglobin 29.7 25-34 pg Mean Corpuscular Hemoglobin Concent 33.1 32-36 g/dl Platelet Count 294 130-400 K/uL Mean Platelet Volume 9.9 7.4-10.4 fL Neutrophils (%) (Auto) 88.8 % Lymphocytes (%) (Auto) 8.9 % Monocytes (%) (Auto) 1.0 % Eosinophils (%) (Auto) 0.6 % Basophils (%) (Auto) 0.1 % Neutrophils # (Auto) 9.55 1.4-6.5 K/uL Lymphocytes # (Auto) 0.96 1.2-3.4 K/uL Monocytes # (Auto) 0.11 0.11-0.59 K/uL Eosinophils # (Auto) 0.06 0-0.5 K/uL Basophils # (Auto) 0.01 0-0.2 K/uL RDW Standard Deviation 49.7 36.4-46.3 fL RDW Coefficient of Variation 15.2 11.5-14.5 % Immature Granulocyte % (Auto) 0.6 % Immature Granulocyte # (Auto) 0.06 0.00-0.02 K/uL Lactic Acid Level 5.8 0.4-2.0 mmol/L Microbiology Results 12/23/16 Blood Culture, Received Pending 12/23/16 Blood Culture, Received Pending Diagnostic Radiology CHEST ONE VIEW PORTABLE 12/23/2016 CLINICAL HISTORY: EVALUATE RESPIRATORY DISTRESS.DYSPNEA COMPARISON STUDY: 01/15/2016 FINDINGS: The bones soft tissues and hemidiaphragms are normal. The cardiomediastinal silhouette is normal. The lungs are clear. The pulmonary vasculature is normal. IMPRESSION: Negative chest. (CHEST FOR PE) ANGIO WITH 12/23/2016 CT DOSE: 835.45 mGy.cm HISTORY: Chest pain dyspnea TECHNIQUE: Multiaxial CT images of the chest were performed following the intravenous administration of contrast to evaluate the pulmonary arteries. Maximal intensity projection images were also obtained. A dose lowering technique was utilized adhering to the principles of ALARA. COMPARISON STUDY: None. FINDINGS: Moderate ectasia thoracic aorta. No evidence for dissection. Small hiatal hernia. The pulmonary vasculature enhances appropriately. The lungs are considered clear. No focal infiltrate. IMPRESSION: No evidence for pulmonary embolus. The lungs are clear. Small hiatal hernia. EKG EKG Sinus tachycardia, ventricular rate 104 bpm. Impression Assessment and Plan Hypoxia Morbid obesity Cough GERD Rhinitis Lactic acidosis Deconditioning Patient has had a one-month history of cough. This could be multifactorial in nature. She carries the diagnosis of COPD however no documented PFTs on record. She is on Spiriva as well as albuterol. She does have history of uncontrolled GERD which may be contributing to her symptoms of nighttime cough. She does have elevated lactate as well as white blood cell count. I do not feel that this is sepsis, most likely a combination of previous corticosteroid use and albuterol, which is precipitating type B lactic acidosis. She has no signs of decreased perfusion to suggest septic shock. ABG shows mild hypoxemia but no acid base disorder. In the meantime I would continue with corticosteroids,bronchodilators and guaifenesin for now. Continue with antibiotics. Send a pro-calcitonin, sputum cultures, follow-up blood cultures and de-escalate accordingly. Recommend incentive spirometry. Continue with Spiriva. She may benefit from an inhaled corticosteroid and long- acting beta agonist upon hospital discharge. I agree with PPI. She may need further workup with GI if resolution of her symptoms. Start fluticasone nasal spray for rhinitis. Continue DVT prophylaxis. Recommended exercise and weight loss. She should follow pulmonary as an outpatient in 1-2 weeks posthospital discharge. She states that she has had full PFTs done as an outpatient, Anjum Maher. Please obtain these records so that we can review. I appreciate the consult.
[2016-12-23] MEDS: GABAPENTIN 300 MG CAP PO SCH (21:49)
[2016-12-23] MEDS: GUAIFENESIN 600 MG TABCR PO SCH (21:49)
[2016-12-23] MEDS: SIMVASTATIN 40 MG TAB PO SCH (21:49)
[2016-12-23] MEDS: DOXYCYCLINE HYCLATE 100 MG CAP PO SCH (21:50)
[2016-12-24] VITALS (12 sets, daily range): BP systolic 122–163; BP diastolic 71–91; PULSE 83–115; TEMP 36.6–37.3; O2SAT 91–97
[2016-12-24] MEDS: IPRATROPIUM BROMIDE NEB SOLN 0.02% 2.5 ML VIAL INH SCH ×4 (01:49→18:57)
[2016-12-24] MEDS: LEVALBUTEROL 1.25MG/0.5ML NEB INH SCH ×4 (01:49→18:56)
[2016-12-24] MEDS: GUAIFENESIN SUGAR FREE 100 MG/5 ML UDC PO PRN ×3 (02:13→21:13)
[2016-12-24 06:02] LABS: BASO % 0.1 %; BASO ABS # 0.01 K/uL (0-0.2); COMPLETE YES; EOS % 0.7 %; HEMATOCRIT 37.4 % (37-47); IG% 0.4 %; LYMPH % 12.1 %; LYMPH ABS # 1.74 K/uL (1.2-3.4); MEAN CELL VOLUME 90.6 fL (80-100); MEAN CORPUSCULAR HEMOGLOBIN 29.1 pg (25-34); MEAN CORPUSCULAR HGB CONC 32.1 g/dl (32-36); MEAN PLATELET VOLUME 10.1 fL (7.4-10.4); MONO % 6.3 %; NEUT % 80.4 %; PLATELET COUNT 328 K/uL (130-400); RED BLOOD COUNT 4.13 M/uL (4.2-5.4); WHITE BLOOD COUNT 14.37 K/uL (4.8-10.8)
[2016-12-24] MEDS: BENZONATATE 100MG CAP PO PRN (06:11)
[2016-12-24 06:17] LABS: BUN/CREATININE RATIO 14.1 (10-20); CALCIUM 9.3 mg/dl (8.5-10.1); CREATININE 0.8 mg/dl (0.60-1.20); POTASSIUM 3.7 mmol/L (3.5-5.1)
[2016-12-24] MEDS: ENOXAPARIN 40 MG/0.4 ML SYR SC SCH (08:08)
[2016-12-24] MEDS: FLUTICASONE PROPIONATE NA SPR 16 GM BTL SCH (08:08)
[2016-12-24] MEDS: GUAIFENESIN 600 MG TABCR PO SCH ×2 (08:09→21:13)
[2016-12-24] MEDS: DOXYCYCLINE HYCLATE 100 MG CAP PO SCH ×2 (08:09→21:13)
[2016-12-24] MEDS: LOSARTAN POTASSIUM 50 MG TAB PO SCH (08:09)
[2016-12-24] MEDS: PANTOprazole SOD 40 MG TAB PO SCH (08:51)
--- NOTE | 2016-12-24 10:56 | ECHOCARDIOGRAM REPORT ---
*NOTICE TO RECEIVING CONSTITUTION PARTY AGENCY This information is strictly Confidential and protected under [place] law. [place] law prohibits you from making any further disclosure of this information unless further disclosure is expressly permitted by the written consent of the person to whom it pertains or is authorized by law. A general authorization for the release of medical or other information is not sufficient for this purpose. Hospital accepts no responsibility if the information is made available to any other person, INCLUDING THE PATIENT. Interpretation Summary * Study Date: 12/24/2016 07:07 AM BP: 167/81 mmHg * Patient Location: [facility]\S\N288\S\1 HR: 112 * : 1950 (M/d/yyyy) Gender: Female Height: 63 in * Age: 66 yrs Ethnicity: [place] Weight: 216 lb * Ordering Physician: Katey Lopez * Referring Physician: Self, Referred * Performed By: Kathei Tee RCS * * Reason For Study: SOB * BSA: 2.0 m2 * The study was technically adequate. * There is no comparison study available. * -- Conclusions -- * Left ventricular systolic function is normal. * Ejection Fraction = 60-65%. * Pulse wave TDI of the anterior and posterior mitral annulas demonstrates normal LV relaxation * No significant valvular disease. Procedure Details * A complete two-dimensional transthoracic echocardiogram was performed (2D, M-mode, Doppler and color flow Doppler). Left Ventricle * The left ventricle is normal in size. * There is no thrombus. * There is normal left ventricular wall thickness. * Ejection Fraction = 60-65%. * Left ventricular systolic function is normal. * The left ventricular wall motion is normal. Right Ventricle * The right ventricle is normal size. * The right ventricular systolic function is normal as assessed by tricuspid annular plane systolic excursion (TAPSE) (normal >1.5 cm). Atria * The left atrial size is normal. * Right atrial size is normal. * There is no evidence of atrial septal defect, but resolution does not allow assessment for a patent foramen ovale. Mitral Valve * The mitral valve is normal. * There is mild mitral annular calcification. * There is no mitral valve stenosis. * Significant mitral regurgitation is absent. Tricuspid Valve * The tricuspid valve is normal. * There is no tricuspid stenosis. * Significant tricuspid regurgitation is absent. Aortic Valve * The aortic valve is not well visualized. * Aortic stenosis is absent. * There is no significant aortic regurgitation. Pulmonic Valve * The pulmonary valve is not well seen, but the Doppler examination is normal without significant regurgitation or stenosis. Great Vessels * The aortic root is normal size. Pericardium/Pleural * There is no pericardial effusion. Great Vessels * Normal inferior vena cava size and collapsability with sniff indicates a normal right atrial pressure of 3 mmHg Left Ventricular Diastolic Function * Pulse wave TDI of the anterior and posterior mitral annulas demonstrates normal LV relaxation MMode 2D Measurements and Calculations IVSd 1.1 cm IVSs 1.3 cm LVIDd 4.7 cm LVIDs 3.2 cm LVPWd 1.1 cm LVPWs 1.3 cm IVS/LVPW 1.0 FS 32.1 % EDV(Teich) 100.4 ml ESV(Teich) 39.9 ml EF(Teich) 60.3 % EDV(cubed) 101.3 ml ESV(cubed) 31.7 ml EF(cubed) 68.7 % % IVS thick 18.0 % % LVPW thick 18.7 % LV mass(C)d 186.9 grams LV mass(C)dI 93.5 grams/m\S\2 LV mass(C)s 135.4 grams LV mass(C)sI 67.8 grams/m\S\2 SV(Teich) 60.6 ml SI(Teich) 30.3 ml/m\S\2 SV(cubed) 69.6 ml SI(cubed) 34.8 ml/m\S\2 Ao root diam 2.6 cm Ao root area 5.2 cm\S\2 ACS 1.5 cm LA dimension 3.2 cm asc Aorta Diam 2.7 cm LA/Ao 1.2 EDV(MOD-sp4) 57.8 ml ESV(MOD-sp4) 26.6 ml EF(MOD-sp4) 54.0 % EDV(MOD-sp2) 69.1 ml ESV(MOD-sp2) 25.7 ml EF(MOD-sp2) 62.8 % SV(MOD-sp4) 31.2 ml SI(MOD-sp4) 15.6 ml/m\S\2 SV(MOD-sp2) 43.4 ml SI(MOD-sp2) 21.7 ml/m\S\2 Doppler Measurements and Calculations Ao V2 max 134.4 cm/sec Ao max PG 7.2 mmHg Ao max PG (full) 2.2 mmHg LV V1 max PG 5.0 mmHg LV V1 max 111.6 cm/sec PA V2 max 100.1 cm/sec PA max PG 4.0 mmHg
[2016-12-24] MEDS ORDERED: LEVALBUTEROL 0.63MG/3 ML NEB INH PRN (13:45)
--- NOTE | 2016-12-24 17:58 | PULMONARY PROGRESS NOTE ---
DATE: 12/24/2016 TIME: 05:10 p.m. SUBJECTIVE: The patient is feeling better. She did relate that she had severe episode of shortness of breath during the nighttime. Apparently, she was given a respiratory treatment and the therapist put the nebulizer in by mask, but did not awaken the patient. When she awakens, she was in a complete panic episode, feeling shortness of breath. Apparently, she had a coughing spell as well. She did desaturate into the 80s. Her heart rate was in the 130s. It took quite a while for that to calm down. It is difficult to say if that was simply a panic attack or nocturnal exacerbation. She feels better this afternoon. She has not had any acute episodes of problems. She has some cough, but no sputum. She is very anxious. OBJECTIVE: GENERAL: The patient is comfortable at rest. Her was with her during this exam. Temperature was 36.6. ENT: Unremarkable. No oral candidiasis was noted. VITAL SIGNS: Heart rate is 114 per minute. The rhythm is regular. Blood pressure is 163/88. LUNGS: Auscultation of the lung perez revealed diminished breath sounds. I heard no active wheezing at present. Her room air oxygen saturation was 91%. Respiratory rate was 20. EXTREMITIES: Showed no cyanosis, clubbing or edema. LABORATORY DATA: White blood cell count today is 14.37. Hemoglobin is 12. Platelets are 328,000. Blood gas done yesterday soon after admission showed a pH of 7.45 with a pCO2 of 35 and a pO2 of 77. Electrolytes show sodium 145, potassium 3.7, chloride 110, and bicarb 28. The BUN is 11 with a creatinine of 0.8. Procalcitonin is less than 0.05. Blood cultures have shown no growth. Sputum Gram stain reported moderate polys with moderate gram positive cocci and few gram positive bacilli with culture pending. IMPRESSIONS: 1. Chronic obstructive pulmonary disease with exacerbation. 2. Obesity. COMMENTS AND RECOMMENDATIONS: The patient states she is feeling better. She did, however, just have an episode during the nighttime. She is on levalbuterol and ipratropium 3 times a day as well as p.r.n. She is on doxycycline and guaifenesin. She is on prednisone 40 mg daily. If she had recurring episodes of acute dyspnea, I would go back to the IV methylprednisolone. Ideally, it would be nice to have the results of pulmonary function tests that she has had done as an outpatient approximately 1 year ago. We will defer this to her hospitalist to determine if that is feasible. I asked the patient if she has ever had a sleep study and she said no. She does snore, but her has not observed any apnea. Nonetheless, the possibility should perhaps still be considered as time goes on. Suggest pulmonary rehab as out patient. KYLEE
[2016-12-24] MEDS: GABAPENTIN 300 MG CAP PO SCH (21:13)
[2016-12-24] MEDS: SIMVASTATIN 40 MG TAB PO SCH (21:13)
--- NOTE | 2016-12-24 23:29 | Progress Note ---
Medicine Progress Note Date & Time of Visit: Dec 24, 2016 at 13:30 . Subjective Persistent nonproductive cough, wheezing, dyspnea. Would like neb schedule adjusted so that she is not awakened at night. No fever. No chest pain. No nausea, vomiting, diarrhea. Has not ambulated outside room yet today. . Objective Vital Signs Label Value Date Time Patient Temperature 36.6 C. 12/24/16725 Temperature Source Oral 12/24/16725 Pulse 109 12/24/16725 Location Brachial Respiratory Rate 18 12/24/16725 Blood Pressure Assessment 122/71 (88) 12/24/16725 Location Right Arm Source NIBP Position Sitting Bedside Pulse Oximetry 92 % 12/24/16725 Item Value Date Time Oxygen Delivery Method Nasal Cannula 12/24/16725 Oxygen Flow Rate 2.0 L/min 12/24/16725 Physical Exam: General- no acute distress Neck- no JVD Lungs- diffuse mild wheezing Heart- RRR, tachycardic Abdomen- + BS, soft, nontender Extremities- no pretibial edema or calf tenderness Neuro- alert . Laboratory Results: Last 24 Hours Test 12/24/16 05:21 White Blood Count 14.37 K/uL Red Blood Count 4.13 M/uL Hemoglobin 12.0 g/dL Hematocrit 37.4 % Mean Corpuscular Volume 90.6 fL Mean Corpuscular Hemoglobin 29.1 pg Mean Corpuscular Hemoglobin Concent 32.1 g/dl Platelet Count 328 K/uL Mean Platelet Volume 10.1 fL Neutrophils (%) (Auto) 80.4 % Lymphocytes (%) (Auto) 12.1 % Monocytes (%) (Auto) 6.3 % Eosinophils (%) (Auto) 0.7 % Basophils (%) (Auto) 0.1 % Neutrophils # (Auto) 11.55 K/uL Lymphocytes # (Auto) 1.74 K/uL Monocytes # (Auto) 0.91 K/uL Eosinophils # (Auto) 0.10 K/uL Basophils # (Auto) 0.01 K/uL RDW Standard Deviation 53.0 fL RDW Coefficient of Variation 15.9 % Immature Granulocyte % (Auto) 0.4 % Immature Granulocyte # (Auto) 0.06 K/uL Sodium Level 145 mmol/L Potassium Level 3.7 mmol/L Chloride Level 110 mmol/L Carbon Dioxide Level 28 mmol/L Anion Gap 7.0 mmol/L Blood Urea Nitrogen 11 mg/dl Creatinine 0.80 mg/dl Est Creatinine Clear Calc Drug Dose 77.3 ml/min Estimated GFR () 89.0 Estimated GFR (Non- 76.8 BUN/Creatinine Ratio 14.1 Random Glucose 105 mg/dl Calcium Level 9.3 mg/dl Chemistry Specimen Hemolysis Date/Time Source Procedure Growth Status 12/24/16 02:20 Sputum Expectorated Sputum Gram Stain - Final Resulted 12/24/16 02:20 Sputum Expectorated Sputum Sputum Culture Pending Resulted Assessment & Plan EXACERBATION OF ASTHMA No pulmonary infiltrates on either plain films or CT. O2 sats as low as 85% on RA in ED. Received IV methylprednisolone, nebs, antibiotics with improvement. Currently receiving prednisone 40 mg daily, levalbuterol / ipratropium nebs, doxycycline. Pulmonary Medicine consulted. ELEVATED SERUM LACTATE Serum lactate 4.8, 5.8. Does not appear to be septic. Elevated lactate could be secondary to albuterol per Pulmonary Medicine. Procalcitonin WNL. Sepsis unlikely. HYPOKALEMIA Serum potassium 3.2 at time of admission. Could have potassium loss secondary to HCTZ as well as extra --> intracellular shift secondary to albuterol. Received replacement. K today = 3.7. Follow. Will need Rx for KCl at time of DC. HYPERTENSION Holding HCTZ due to exacerbation of asthma + hypokalemia. Continue losartan. GERD Continue PPI. VTE PROPHYLAXIS SQ enoxaparin. Ambulate. DISPOSITION Expected discharge to home. Family Medicine follow-up with Dr. Ferguson. . Consultants: Pulmonary . Procedures: CTA chest echo . Current Inpatient Medications: Current Inpatient Medications Medications (Trade) Dose Ordered Sig/Juan Carlos Route Start Time Stop Time Status Last Admin Dose Admin Doxycycline Hyclate (Vibramycin Cap) 100 mg BID PO 12/23/16 21:00 12/30/16 20:59 12/24/16 21:13 100 MG Guaifenesin (Mucinex Contr Rel Tab) 600 mg Q12 PO 12/23/16 21:00 01/22/17 20:59 12/24/16 21:13 600 MG Ioversol (Optiray 320) 125 ml UD PRN IV 12/23/16 03:00 12/27/16 02:59 Enoxaparin Sodium (Lovenox Inj) 40 mg Q24H SC 12/23/16 09:00 01/22/17 08:59 Acetaminophen (Tylenol Tab) 650 mg Q4H PRN PO 12/23/16 02:45 01/22/17 02:44 Gabapentin (Neurontin Cap) 300 mg HS PO 12/23/16 21:00 01/22/17 20:59 12/24/16 21:13 300 MG Losartan Potassium (coZAAR TAB) 50 mg QAM PO 12/23/16 09:00 01/22/17 08:59 12/24/16 08:09 50 MG Simvastatin (Zocor Tab) 40 mg QPM PO 12/23/16 21:00 01/22/17 20:59 12/24/16 21:13 40 MG Prednisone (PredniSONE TAB) 40 mg DAILY PO 12/23/16 09:00 12/28/16 08:59 12/24/16 08:09 40 MG Morphine Sulfate (MoRPHine SULFATE INJ) 4 mg Q3H PRN IV 12/23/16 02:45 01/06/17 02:44 Tramadol HCl (Ultram Tab) not relieved by tylenol @ Q6H PRN PO 12/23/16 02:45 01/22/17 02:44 Benzonatate (Tessalon Perles Cap) 100 mg Q8H PRN PO 12/23/16 02:45 01/22/17 02:44 12/24/16 06:11 100 MG Pantoprazole Sodium (Protonix Tab) 40 mg QAM PO 12/24/16 09:00 01/23/17 08:59 12/24/16 08:51 40 MG Ipratropium [place] (Atrovent 0.02% 0.5MG/2.5ML Neb) 0.5 mg Q4H PRN INH 12/23/16 03:30 01/22/17 03:29 12/23/16 05:29 0.5 MG Guaifenesin (Robitussin Sugar Free Syrup) 100 mg Q6H PRN PO 12/23/16 06:30 01/22/17 06:29 12/24/16 21:13 100 MG Fluticasone Propionate (Flonase Nasal [place]) 1 sprays DAILY NA 12/24/16 09:00 01/23/17 08:59 12/24/16 08:08 1 SPRAYS Levalbuterol (Xopenex 0.63 Mg/ 3 Ml Neb) 0.63 mg Q3H PRN INH 12/24/16 13:45 01/23/17 13:44 Levalbuterol (Xopenex 1.25MG/ 0.5ML Neb) 1.25 mg TIDR INH 12/24/16 21:00 01/23/17 20:59 12/24/16 18:56 1.25 MG Ipratropium [place] (Atrovent 0.02% 0.5MG/2.5ML Neb) 0.5 mg TIDR INH 12/24/16 21:00 01/23/17 20:59 12/24/16 18:57 0.5 MG
[2016-12-25] VITALS (12 sets, daily range): BP systolic 127–152; BP diastolic 76–99; PULSE 85–133; TEMP 36.3–36.7; O2SAT 91–96
[2016-12-25] MEDS: GUAIFENESIN SUGAR FREE 100 MG/5 ML UDC PO PRN ×3 (03:32→22:13)
[2016-12-25 07:22] LABS: BUN/CREATININE RATIO 16.4 (10-20); CALCIUM 9.1 mg/dl (8.5-10.1); CREATININE 0.79 mg/dl (0.60-1.20); POTASSIUM 3.3 mmol/L (3.5-5.1)
[2016-12-25] MEDS: LEVALBUTEROL 1.25MG/0.5ML NEB INH SCH ×3 (07:33→20:14)
[2016-12-25] MEDS: IPRATROPIUM BROMIDE NEB SOLN 0.02% 2.5 ML VIAL INH SCH ×3 (07:33→20:14)
[2016-12-25] MEDS: FLUTICASONE PROPIONATE NA SPR 16 GM BTL SCH (07:54)
[2016-12-25] MEDS: DOXYCYCLINE HYCLATE 100 MG CAP PO SCH ×2 (07:54→22:13)
[2016-12-25] MEDS: GUAIFENESIN 600 MG TABCR PO SCH ×2 (07:55→22:13)
[2016-12-25] MEDS: LOSARTAN POTASSIUM 50 MG TAB PO SCH (07:55)
[2016-12-25] MEDS: PANTOprazole SOD 40 MG TAB PO SCH (07:55)
[2016-12-25] MEDS: ENOXAPARIN 40 MG/0.4 ML SYR SC SCH (07:55)
[2016-12-25] MEDS ORDERED: POTASSIUM CHLORIDE 10 MEQ TABCR PO ONE (10:00)
[2016-12-25] MEDS ORDERED: POLYETHYLENE (MIRALAX) 17 GM PACK PO ONE (10:30)
[2016-12-25] MEDS ORDERED: NURSING DECISION MEDICATION ORDER SCH (10:30)
--- NOTE | 2016-12-25 11:56 | PULMONARY PROGRESS NOTE ---
DATE: 12/25/2016 TIME: 11:40 a.m. SUBJECTIVE: The patient is feeling much better. She is less short of breath. She has ambulated in the hallway twice today without difficulty. She did not have any more episodes during the night of significant issues. OBJECTIVE: GENERAL: The patient appeared comfortable. Temperature is 36.4. EARS, NOSE, THROAT: Unremarkable. VITAL SIGNS: Heart rate remains somewhat elevated at times. traffic monitor specialist shows her heart rate currently is 120. However, when I was seeing her in the room, her heart rate was 96. Blood pressure this morning was 152/90. LUNGS: Lung perez revealed diminished breath sounds but were clear. No wheezing was heard. Saturation was 92% on room air. EXTREMITIES: Showed no cyanosis, clubbing or edema. LABORATORY DATA: Electrolytes today show sodium 144, potassium 3.3, chloride 111, bicarbonate 25. The BUN was 13 with a creatinine of 0.79. IMPRESSIONS: Chronic obstructive pulmonary disease with exacerbation -- much improved. COMMENTS AND RECOMMENDATIONS: The patient is clinically doing well. Respiratory mendez, she is improved. Her heart rates are still marginal. The patient states that Dr. Hill told her she would be likely going home tomorrow. I would have no objection to that based upon the way her exam seems at the present time. The prednisone can be tapered as an outpatient. I would advise pulmonary functions be done in a month or 2 after she is back to baseline.
--- NOTE | 2016-12-25 13:48 | Progress Note ---
Internal Med Progress Note Date of Service: Dec 25, 2016. Provider Documentation: SUBJECTIVE: The patient was seen and examined Clinically better but still complains a lot of wheezing No chest pain ,palpitation OBJECTIVE: Vital Signs-as noted below Exam: General-No distress at rest Eyes-normal ENT-normal Neck-supple Lungs-decreased breath sound bilaterally with moderate wheezing bilaterally Heart-Regular,no murmur appreciated Abdomen-Benign,no masses,bowel sound present Extremities-NO edema Neuro-AAOx3 Lab data as noted below. ASSESSMENT & PLAN: EXACERBATION OF ASTHMA No pulmonary infiltrates on either plain films or CT. O2 sats as low as 85% on RA in ED. Received IV methylprednisolone, nebs, antibiotics with improvement. Currently receiving prednisone 40 mg daily, levalbuterol / ipratropium nebs, doxycycline. Pulmonary Medicine consulted-appreciate Input CTA::No evidence for pulmonary embolus. The lungs are clear. Small hiatal hernia. Clinically a lot better 2 step before discharge tomorrow ELEVATED SERUM LACTATE Serum lactate 4.8, 5.8-likely secondary to Hypoxia . Does not appear to be septic. Elevated lactate could be secondary to albuterol per Pulmonary Medicine. Procalcitonin WNL. Sepsis unlikely. Clinically a lot better HYPOKALEMIA Serum potassium 3.2 at time of admission. Could have potassium loss secondary to HCTZ as well as extra --> intracellular shift secondary to albuterol. Received replacement. K today = 3.7. Will need Rx for KCl at time of DC More K given and will recheck K and Mag in AM HYPERTENSION Holding HCTZ due to exacerbation of asthma + hypokalemia. Continue losartan. BP remains stable ECHO::Left ventricular systolic function is normal. * Ejection Fraction = 60-65%. * Pulse wave TDI of the anterior and posterior mitral annulas demonstrates normal LV relaxation * No significant valvular disease. GERD Continue PPI. VTE PROPHYLAXIS SQ enoxaparin. Ambulate. DISPOSITION Expected discharge to home. Family Medicine follow-up with Dr. Ferguson. . Consultants: Pulmonary . Procedures: CTA chest echo Vital Signs: Date Time Temp Pulse Resp B/P (MAP) Pulse Ox O2 Delivery O2 Flow Rate FiO2 12/25/16 12:00 Room Air 12/25/16 11:29 36.4 105 20 152/90 (110) 92 Room Air 12/25/16 08:00 Nasal Cannula 2.0 12/25/16 07:33 90 16 92 Room Air 12/25/16 07:31 36.7 93 18 138/96 (110) 91 Room Air 12/25/16 04:00 36.6 85 20 144/99 (114) 95 Nasal Cannula 2.0 95 12/25/16 04:00 96 Nasal Cannula 2.0 12/25/16 00:00 96 Nasal Cannula 2.0 12/24/16 23:52 37.3 89 18 150/89 (109) 94 2.0 12/24/16 19:03 36.6 108 20 138/91 (107) 94 Nasal Cannula 2.0 12/24/16 18:59 108 16 96 Room Air 12/24/16 16:05 92 2.0 12/24/16 15:29 36.6 114 18 163/88 (113) 92 Room Air 12/24/16 14:19 115 16 92 Room Air Lab Results: Results Past 24 Hours Test 12/25/16 06:31 Range/Units Sodium Level 144 136-145 mmol/L Potassium Level 3.3 3.5-5.1 mmol/L Chloride Level 111 98-107 mmol/L Carbon Dioxide Level 25 21-32 mmol/L Anion Gap 8.0 3-11 mmol/L Blood Urea Nitrogen 13 7-18 mg/dl Creatinine 0.79 0.60-1.20 mg/dl Est Creatinine Clear Calc Drug Dose 78.2 ml/min Estimated GFR () 90.4 Estimated GFR (Non- 78.0 BUN/Creatinine Ratio 16.4 10-20 Random Glucose 89 70-99 mg/dl Calcium Level 9.1 8.5-10.1 mg/dl
[2016-12-25] MEDS: SIMVASTATIN 40 MG TAB PO SCH (22:13)
[2016-12-25] MEDS: GABAPENTIN 300 MG CAP PO SCH (22:13)
[2016-12-26] VITALS (7 sets, daily range): BP systolic 137–159; BP diastolic 81–95; PULSE 81–93; TEMP 36.3–36.6; O2SAT 90–93
[2016-12-26] MEDS: GUAIFENESIN SUGAR FREE 100 MG/5 ML UDC PO PRN ×2 (04:29→12:03)
[2016-12-26] MEDS: LEVALBUTEROL 1.25MG/0.5ML NEB INH SCH (07:34)
[2016-12-26] MEDS: IPRATROPIUM BROMIDE NEB SOLN 0.02% 2.5 ML VIAL INH SCH (07:34)
[2016-12-26] MEDS: DOXYCYCLINE HYCLATE 100 MG CAP PO SCH (08:15)
[2016-12-26] MEDS: PANTOprazole SOD 40 MG TAB PO SCH (08:15)
[2016-12-26] MEDS: FLUTICASONE PROPIONATE NA SPR 16 GM BTL SCH (08:15)
[2016-12-26] MEDS: GUAIFENESIN 600 MG TABCR PO SCH (08:15)
[2016-12-26] MEDS: LOSARTAN POTASSIUM 50 MG TAB PO SCH (08:15)
[2016-12-26] MEDS: ENOXAPARIN 40 MG/0.4 ML SYR SC SCH (08:16)
[2016-12-26] MEDS ORDERED: POTASSIUM CHLORIDE 10 MEQ TABCR PO ONE (12:53)
--- NOTE | 2016-12-26 12:57 | Progress Note ---
Internal Med Progress Note Date of Service: Dec 26, 2016. Provider Documentation: SUBJECTIVE: The patient was seen and examined Clinically better but still complains a lot of wheezing No chest pain ,palpitation Much better today Ambulating without any difficulty Wants to go home OBJECTIVE: Vital Signs-as noted below Exam: General-No distress at rest Eyes-normal ENT-normal Neck-supple Lungs-decreased breath sound bilaterally with minimal wheezing bilaterally Clinically improved Heart-Regular,no murmur appreciated Abdomen-Benign,no masses,bowel sound present Extremities-NO edema Neuro-AAOx3 Lab data as noted below. ASSESSMENT & PLAN: EXACERBATION OF ASTHMA No pulmonary infiltrates on either plain films or CT. O2 sats as low as 85% on RA in ED. Received IV methylprednisolone, nebs, antibiotics with improvement. Currently receiving prednisone 40 mg daily, levalbuterol / ipratropium nebs, doxycycline. Pulmonary Medicine consulted-appreciate Input CTA::No evidence for pulmonary embolus. The lungs are clear. Small hiatal hernia. Clinically a lot better 2 step before discharge -does not require oxygen Clinically a lot better Will discharge home today ELEVATED SERUM LACTATE Serum lactate 4.8, 5.8-likely secondary to Hypoxia . Does not appear to be septic. Elevated lactate could be secondary to albuterol per Pulmonary Medicine. Procalcitonin WNL. Sepsis unlikely. Clinically a lot better HYPOKALEMIA Serum potassium 3.2 at time of admission. Could have potassium loss secondary to HCTZ as well as extra --> intracellular shift secondary to albuterol. Received replacement. K today = 3.7. Will need Rx for KCl at time of DC More K given and will recheck K and Mag in AM HYPERTENSION Holding HCTZ due to exacerbation of asthma + hypokalemia. Continue losartan. BP remains stable ECHO::Left ventricular systolic function is normal. * Ejection Fraction = 60-65%. * Pulse wave TDI of the anterior and posterior mitral annulas demonstrates normal LV relaxation * No significant valvular disease. BP is controlled GERD Continue PPI. VTE PROPHYLAXIS SQ enoxaparin. Ambulate. DISPOSITION Expected discharge to home. Family Medicine follow-up with Dr. Ferguson. . Consultants: Pulmonary . Procedures: CTA chest echo;As above Discharge home today Vital Signs: Date Time Temp Pulse Resp B/P (MAP) Pulse Ox O2 Delivery O2 Flow Rate FiO2 12/26/16 12:00 Room Air 12/26/16 11:37 36.6 16 159/95 (116) 90 Room Air 12/26/16 08:00 Room Air 12/26/16 07:52 36.3 93 16 137/81 (99) 92 Room Air 12/26/16 07:34 84 16 93 Room Air 12/26/16 04:55 36.6 81 18 158/88 (111) 93 Room Air 151/88 (109) 12/26/16 04:00 92 Room Air 12/26/16 00:00 92 Room Air 12/25/16 23:50 36.4 86 20 132/76 (94) 94 Room Air 12/25/16 20:16 99 16 93 Room Air 12/25/16 20:00 93 Room Air 12/25/16 19:50 36.6 101 16 127/83 (98) 94 Room Air 12/25/16 16:02 36.3 133 20 144/90 (108) 92 Room Air 12/25/16 16:00 92 Room Air 12/25/16 14:44 92 16 93 Room Air
[2016-12-26] MEDS ORDERED: PRD20 PO (13:49)
[2016-12-26] MEDS ORDERED: DXY100 PO (13:49)
[2016-12-26] MEDS ORDERED: LCTX PO (13:49)
--- NOTE | 2016-12-26 13:51 | Discharge Instructions ---
Discharge Instructions Date of Service Dec 26, 2016. Admission Reason for Admission: Sepsis Discharge Discharge Diagnosis / Problem: Exacerbation of Asthma Discharge Goals Goal(s): Prevent Disease Progression Activity Recommendations Activity Limitations: resume your previous activity . Instructions / Follow-Up Instructions / Follow-Up Dr Ferguson on 12/31/16 at 12:45 PM.Please keep appointment with Sanitizer Current Hospital Diet Patient's current hospital diet: AHA Diet (Heart Healthy) Discharge Diet Recommended Diet: AHA Diet (Heart Healthy) Pending Studies Studies pending at discharge: no Medical Emergencies . Who to Call and When: Medical Emergencies: If at any time you feel your situation is an emergency, please call 911 immediately. . Non-Emergent Contact Non-Emergency issues call your: Primary Care Provider . Past History Medical & Surgical History: (1) COPD exacerbation (2) Respiratory failure with hypoxia (3) COPD (chronic obstructive pulmonary disease) (4) Tachycardia . "Provider Documentation" section prepared by Carola Hill. . VTE Core Measure Inpt VTE Proph given/why not?: Enoxaparin (Lovenox)SQ
[2016-12-26] MEDS ORDERED: MCRK20 PO (13:52)
[2016-12-26 14:15] LABS: BUN/CREATININE RATIO 16.1 (10-20); CALCIUM 9.2 mg/dl (8.5-10.1); CREATININE 0.96 mg/dl (0.60-1.20); MAGNESIUM 2.5 mg/dl (1.8-2.4); POTASSIUM 4.3 mmol/L (3.5-5.1)
--- NOTE | 2016-12-26 17:42 | Discharge Summary ---
Discharge Summary Date of Service Dec 26, 2016. Discharge Summary Admission Date: Dec 23, 2016 at 02:01 Discharge Date: Dec 26, 2016 Discharge Disposition: Home Principal Diagnosis: Exacerbation of Asthma Procedures: CTA chest echo . Consultations: Pulmonary . Medication Reconciliation New Medications: Lactobacillus Acidophilus (Lactinex) Tab 2 TAB PO BID, #30 TAB Potassium Chloride (Klor-Con M20) 20 Meq Tabcr 20 MEQ PO DAILY, #30 Doxycycline Hyclate (Doxycycline Hyclate) 100 Mg Cap 100 MG PO BID for 4 Days, #8 CAP Prednisone (Prednisone) 20 Mg Tab 20 MG PO UD for 11 Days, #13 TAB 2 po daily for 2 days,1 and a 1/2 po daily for 3 days,1 pondaily for 3 days and then 1/2 po daily for 3 days Continued Medications: Albuterol Sulf (Proventil 0.083% 2.5MG/3ML) 2.5 Mg/3 Ml Nebu 2.5 MG INH Q4, EA Albuterol Sulfate (Proair Respiclick) 108 Mcg/Act Aer 2 PUFF PO QD Cholecalciferol (Vitamin D) 400 Unit Tab 400 MG PO DAILY Cyanocobalamin (Vitamin B-12) 100 Mcg Tab 100 MCG PO DAILY, TAB Gabapentin (Neurontin) 100 Mg Cap 300 MG PO HS, CAP Hydrochlorothiazide (Hctz) 25 Mg Tab 25 MG PO QAM, TAB Losartan Potassium (Cozaar) 50 Mg Tab 50 MG PO QAM, TAB Simvastatin (Zocor) 40 Mg Tab 40 MG PO QPM, TAB Tiotropium Rogers (Spiriva Handihaler) 30 Puff/540 Mcg Aerp 1 CAP INH DAILY, INHALER Admission Information HPI (per Admitting provider): DATE OF ADMISSION: 12/23/2016 PRIMARY CARE PHYSICIAN: Dr. Ferguson. CHIEF COMPLAINT: Cough, shortness of breath. HISTORY OF PRESENT ILLNESS: History obtained from the patient and records. Medical history significant for COPD, hypertension, past tobacco abuse, reflux. In the last month, the patient noted to have cough productive of clear to white to dull [place] sputum to yellow sputum, increasing shortness of breath and wheezing, some nasal congestion. Denies aspiration. Outpatient courses of steroids and antibiotics consisting of Augmentin and doxycycline. Last day of prednisone was a few days ago. Transient improvement of symptoms, occasional complaints of pleuritic, left-sided back pain. Uncontrolled reflux symptoms as per patient. Denies flulike symptoms. Recent seasonal flu vaccine. Patient denies unusual leg swelling or weight gain. Outpatient chest x-ray from December 14 showed mild prominence of interstitial markings, no pneumothorax, trace bilateral pleural effusions. Possible need for lung specialist as per recent communication with PCP. Tonight she had worsening symptoms. Patient noted to be hypoxemic at the ER. Patient received azithromycin, DuoNebs, Solu-Medrol for COPD exacerbation. MEDICAL HISTORY: As above. SURGERIES: She has had bilateral tubal ligation. HOME MEDICATIONS: Include simvastatin, losartan, HCTZ, Spiriva, gabapentin, albuterol, Zantac as per patient. ALLERGIES: No known drug allergies. FAMILY HISTORY: There is a family history of heart disease, COPD, colon cancer, and diabetes. PERSONAL AND SOCIAL HISTORY: Past tobacco abuse. No chronic intake of alcoholic beverages. REVIEW OF SYSTEMS: As per HPI, all other ROS negative. PHYSICAL EXAMINATION: VITAL SIGNS: Blood pressure was noted to be 158/81; pulse rate 112, later 130 RR 20; temperature 36.8; sats 88 on room air, later 94 on 2 liters. GENERAL: Noted to be obese, slightly anxious, no overt respiratory distress. SKIN: Normal color, warm. HEENT: [place] palpebral conjuctivae. No ptosis. Dry buccal mucosa. Nasal cannula in place NECK: Short neck, nontender. CHEST: Decreased breath sounds. No chest wall tenderness. CV: Tachycardic, palpable LE pulses. ABDOMEN: Some distention, nontender. EXTREMITIES: No edema, no tenderness, no gross deformities. NEUROLOGIC: Coherent, no gross focality. LABORATORIES: Hemoglobin was noted to be 12.8, hematocrit 38.6, white cell count 13.6, platelets 290. Sodium 141, potassium 3.2, chloride 105, CO2 28, BUN 12, creatinine 0.8, glucose 123. Lactic acid was noted to be 4.8. Chest x-ray, no infiltrate. EKG as per my interpretation, rate 105, sinus tachycardia, T-wave flattening in the lateral leads, low voltage. ASSESSMENT: 1. Severe sepsis SIRS plus hypoxemia plus lactic acidosis secondary to chronic obstructive pulmonary disease exacerbation recurrent symptoms the last few weeks recent outpatient steroid and antibiotic courses uncontrolled GERD possibly contributory to chronic obstructive pulmonary disease exacerbation rule out pulmonary embolism with pleuritic back pain symptoms as precipitant. 2. Hypertension, stable. 3. Hypokalemia secondary to diuretic therapy. 4. Past tobacco abuse. PLAN: PCU supplemental O2 baseline ABG CS, doxycycline, nebs, steroids. IVF, Follow lactic acid Replace potassium. Hold home diuretics for now. PPI trial CT chest, PE study. Pulmonary consult for respiratory failure/recurrent COPD exacerbation. DVT prophylaxis, Lovenox subQ. Full code. Hospital Course EXACERBATION OF ASTHMA No pulmonary infiltrates on either plain films or CT. O2 sats as low as 85% on RA in ED. Received IV methylprednisolone, nebs, antibiotics with improvement. Currently receiving prednisone 40 mg daily, levalbuterol / ipratropium nebs, doxycycline. Pulmonary Medicine consulted-appreciate Input CTA::No evidence for pulmonary embolus. The lungs are clear. Small hiatal hernia. Clinically a lot better 2 step before discharge -does not require oxygen Clinically a lot better Will discharge home today ELEVATED SERUM LACTATE Serum lactate 4.8, 5.8-likely secondary to Hypoxia . Does not appear to be septic. Elevated lactate could be secondary to albuterol per Pulmonary Medicine. Procalcitonin WNL. Sepsis unlikely. Clinically a lot better HYPOKALEMIA Serum potassium 3.2 at time of admission. Could have potassium loss secondary to HCTZ as well as extra --> intracellular shift secondary to albuterol. Received replacement. K today = 3.7. Will need Rx for KCl at time of DC More K given and will recheck K and Mag in AM HYPERTENSION Holding HCTZ due to exacerbation of asthma + hypokalemia. Continue losartan. BP remains stable ECHO::Left ventricular systolic function is normal. * Ejection Fraction = 60-65%. * Pulse wave TDI of the anterior and posterior mitral annulas demonstrates normal LV relaxation * No significant valvular disease. BP is controlled GERD Continue PPI. VTE PROPHYLAXIS SQ enoxaparin. Ambulate. DISPOSITION Expected discharge to home. Family Medicine follow-up with Dr. Ferguson. . Consultants: Pulmonary . Procedures: CTA chest echo;As above Discharge home today Total time spent on discharge = 35 minutes This includes examination of the patient, discharge planning, medication reconciliation, and communication with other providers. Discharge Instructions Date of Service Dec 26, 2016. Admission Reason for Admission: Sepsis Discharge Discharge Diagnosis / Problem: Exacerbation of Asthma Discharge Goals Goal(s): Prevent Disease Progression Activity Recommendations Activity Limitations: resume your previous activity . Instructions / Follow-Up Instructions / Follow-Up Dr Ferguson on 12/31/16 at 12:45 PM.Please keep appointment with Fishery Biologist Current Hospital Diet Patient's current hospital diet: AHA Diet (Heart Healthy) Discharge Diet Recommended Diet: AHA Diet (Heart Healthy) Pending Studies Studies pending at discharge: no Medical Emergencies . Who to Call and When: Medical Emergencies: If at any time you feel your situation is an emergency, please call 911 immediately. . Non-Emergent Contact Non-Emergency issues call your: Primary Care Provider . Past History Medical & Surgical History: (1) COPD exacerbation (2) Respiratory failure with hypoxia (3) COPD (chronic obstructive pulmonary disease) (4) Tachycardia . "Provider Documentation" section prepared by Carola Hill. . VTE Core Measure Inpt VTE Proph given/why not?: Enoxaparin (Lovenox)SQ <Electronically signed by Carola Hill M.D.> Additional Copies To Catrachita Ferguson M.D. (MEDICAL)
== END 2016-12-26 14:40 | disposition home or self-care (01) | DRG 191 ==
LOC: EDBD 21:40 → C.EDB 21:42 → C.MED 12-23 02:01 → ENRESERV 12-23 02:23
PROVIDERS: ADMIT Hospitalist; ATTEND Internal Medicine
DX: J44.1 Chronic obstructive pulmonary disease with (acute) exacerbation (principal); E87.2 Acidosis; R00.0 Tachycardia, unspecified; K21.9 Gastro-esophageal reflux disease without esophagitis; E66.01 Morbid (severe) obesity due to excess calories; Z87.891 Personal history of nicotine dependence; Z68.38 Body mass index [BMI] 38.0-38.9, adult; Z82.49 Family history of ischemic heart disease and other diseases of the circulatory system; Z80.8 Family history of malignant neoplasm of other organs or systems; Z83.3 Family history of diabetes mellitus

== ENCOUNTER → 2017-07-08 | Outpatient (CLI) | payer OTHER ==
[~2017-07-08] MED LIST changes: +ALBU18002 INH; -ALBU18002 PO; +ATOR-24 PO; -CHOL400T PO; -CYAN100T PO; +DICL75TA2 PO; +GINSCAP3 PO; +OMEP20CA9 PO; -SIMV40TA4 PO; -SPRIN/30 INH; +UMEC1AER INH; +[UNRECOGNIZED DRUG - OTHER] PO; +[UNRECOGNIZED DRUG - OTHER] PO
[2017-07-08 09:40] LABS: BASO % 0.2 %; BASO ABS # 0.02 K/uL (0-0.2); EOS % 2.7 %; EOS ABS # 0.24 K/uL (0-0.5); HEMATOCRIT 40.2 % (37-47); HEMOGLOBIN 13.5 g/dL (12.0-16.0); IG# 0.01 K/uL (0.00-0.02); LYMPH % 26.8 %; LYMPH ABS # 2.37 K/uL (1.2-3.4); MEAN CELL VOLUME 85.2 fL (80-100); MEAN CORPUSCULAR HEMOGLOBIN 28.6 pg (25-34); MEAN CORPUSCULAR HGB CONC 33.6 g/dl (32-36); MONO % 8.6 %; MONO ABS # 0.76 K/uL (0.11-0.59); NEUT % 61.6 %; NEUT ABS # 5.45 K/uL (1.4-6.5); PLATELET COUNT 318 K/uL (130-400); RED CELL DISTRIBUTION WIDTH CV 15.1 % (11.5-14.5); RED CELL DISTRIBUTION WIDTH SD 47.4 fL (36.4-46.3); WHITE BLOOD COUNT 8.85 K/uL (4.8-10.8)
[2017-07-08 11:00] LABS: BLOOD UREA NITROGEN 11 mg/dl (7-18); CALCIUM 9.5 mg/dl (8.5-10.1); CARBON DIOXIDE 31 mmol/L (21-32); CREATININE 0.79 mg/dl (0.60-1.20); GLUCOSE 107 mg/dl (70-99); POTASSIUM 3.1 mmol/L (3.5-5.1); SODIUM 138 mmol/L (136-145)
== END | disposition home or self-care (01) ==
LOC: C.CPL 08:03
PROVIDERS: ATTEND Orthopaedic Surgery
DX: Z01.812 Encounter for preprocedural laboratory examination (principal); Z01.810 Encounter for preprocedural cardiovascular examination; M25.512 Pain in left shoulder; G89.29 Other chronic pain

== ENCOUNTER → 2017-07-11 | Day surgery (SDC) | payer OTHER ==
[2017-06-26 14:38] VITALS: Ht 160 cm; Wt 91.4 kg
[~2017-07-11] VITALS: Ht 160 cm; Wt 91.4 kg
[~2017-07-11] MED LIST changes: +ATROPINE SULFATE 0.1 MG/ML 5ML SYR IV PRN; +BUPIVACAINE 0.25% 30 ML VIAL ONE; +CEFAZOLIN 2000MG IV PUSH 15 ML IV SCH; +DEXAMETHASONE SOD INJ 4 MG/ML VIAL IV PRN; +DEXAMETHASONE SOD INJ 4 MG/ML VIAL ONE; +EpHEDrine SULFATE 50MG/5ML SYR ONE; +EpHEDrine SULFATE INJ 50 MG/ML AMP IV PRN; +EpINEphrine INJ 1MG/ML AMP 1 MG/ML AMP ONE; +FENTANYL CITRATE INJ 50 MCG/1 ML 2 ML VIAL ONE; +KETO10TA PO; +KETOROLAC TROMETHAMINE 30 MG/ML VIAL IV. PRN; +LABETALOL HCL IV 5 MG/ML 20ML IV PRN; +LACTATED RINGER'S 1000ML 1,000 ML IV SCH; +LIDOCAINE HCL 2% 2 ML VIAL (20MG/ML) ONE; +METOCLOPRAMIDE HCL INJ 5 MG/ML 2 ML VIAL IV PRN; +MIDAZOLAM HCL 1 MG/ML 2ML VIAL ONE; +MoRPHine SULFATE 10 MG/ML CARP/VIAL IV PRN; +ONDANSETRON INJ 2 MG/ML 2 ML VIAL IV PRN; +ONDANSETRON INJ 2 MG/ML 2 ML VIAL ONE; +OXYC-57 PO; +OXYCODONE/ACETAMINOPHEN 5-325 TAB PO PRN; +PHENYLEPHRINE 100MCG/ML 5ML SYR IV PRN; +PROPOFOL IV EMULSION 10 MG/ML 20 ML VIAL ONE; +ROPIVACAINE 0.5% 5 MG/ML 30 ML VIAL ONE; +SODIUM CHLORIDE 0.9% 1000ML 1,000 ML IV SCH
--- NOTE | 2017-07-11 09:14 | History & Physical Bridge Note ---
H&P Re-Evaluation Bridge Note: I have examined the patient, reviewed the History & Physical and in the interval since the performance of the History & Physical I have noted the following changes of clinical significance: No changes noted
--- NOTE | 2017-07-11 11:54 | [facility] Post Operative Brief Note ---
Immediate Operative Summary Operative Date July 11, 2017. Pre-Operative Diagnosis Chronic Pain, Full thickness rotator cuff tear Post-Operative Diagnosis same as pre op Procedure(s) Performed Left Shoulder Arthroscopy With Medium Rotator Cuff Repair, Biceps Tenodesis Surgeon Dr Smith Container Filler Surgeon(s) KATHLEEN Rodriguez Estimated Blood Loss 5ml Findings Consistent with Post-Op Diagnosis Specimens none Drains None Anesthesia Type General Regional Complication(s) none Disposition Disposition: Recovery Room / PACU
--- NOTE | 2017-07-11 12:08 | Discharge Instructions-SurgCtr ---
Discharge Instructions Date of Service July 11, 2017. Visit Reason for Visit: Left Shoulder Full Thickness Rotator Cuff Tear Discharge Discharge Diagnosis / Problem: SAME ABOVE Discharge Goals Goal(s): Decrease discomfort, Improve function Medications Stopped Medications Name(s): Voltaren stopped 07-04-17 Restart Stopped Medication(s): MAY RESTART WHEN FINISHED WITH TORADOL Activity Recommendations Activity Limitations: as noted below Lifting Limitations: until after follow-up appointment Exercise/Sports Limitations: until after follow-up appointment Shower/Bathe: tomorrow Anesthesia . Post Anesthesia Instructions: If you have had General Anesthesia or IV Sedation: * Do not drive today. * Resume driving when surgeon permits. * Do not make important decisions or sign legal documents today. * Call surgeon for: 1. Temperature elevations greater than 101 degrees F. 2. Uncontrollable pain. 3. Excessive bleeding. 4. Persistent nausea and vomiting. 5. Medication intolerance (nausea, vomiting or rash). * For nausea and vomiting use only clear liquids such as: tea, soda, bouillon until nausea subsides, then gradually increase diet as tolerated. * If you have any concerns or questions, call your surgeon's office. If physician is unavailable and it is an emergency, call 911 or go to the nearest emergency room. . Instructions / Follow-Up Instructions / Follow-Up MEDICATIONS: * Resume previous medications unless instructed otherwise by your surgeon. * Always take pain medication on a full stomach or with food to avoid upset stomach. * Do not drink alcohol or drive while taking narcotics. * Ibuprofen or Tylenol may be taken if narcotic not needed. SPECIAL CARE INSTRUCTIONS: __ None _X_ Keep extremity elevated and iced x 48 hours; apply ice 20-30 minutes 8-10 times/day. May remove at night. __ Sling __24 hrs/day __ Remove at night _X_ Shoulder Immobilizer (MAY REMOVE AFTER 48 HOURS ONLY TO SHOWER AND FOR THERAPY) _X_ 24 hrs/day __ Remove at night _X_ Dressing __ Maintain until seen in office, may shower with plastic over site _X_ Remove dressings in 24-48 hours and then may shower _X_ Cover incisions with band-aids after showering __ Do not remove steri-strips Call physician if chills or temperature rises above 102 degrees or pain unrelieved by prescribed pain medications at . . Diet Recommendations Home Diet: no limitations Fluid Restriction: None Procedures Procedures Performed: Left Shoulder Arthroscopy With Medium Rotator Cuff Repair, Biceps Tenodesis Pending Studies Studies pending at discharge: no Medical Emergencies . Who to Call and When: Medical Emergencies: If at any time you feel your situation is an emergency, please call 911 immediately. . Non-Emergent Contact Non-Emergency issues call your: Primary Care Provider Call Non-Emergent contact if: you have a fever, temperature is above 101.5 . . "Provider Documentation" section prepared by Tito Garces. .
[2017-07-11] MEDS: FENTANYL CITRATE INJ 50 MCG/1 ML 2 ML VIAL IV PRN ×2 (12:17→12:31)
[2017-07-11 13:18] VITALS: TEMP 36.2
--- NOTE | 2017-07-11 13:28 | Anesthesia Progress Nt - [facility] ---
Anesthesia Post Op Note Date & Time July 11, 2017 at 13:28 Vital Signs Pain Intensity: 3 Vital Signs Past 12 Hours Date Time Temp Pulse Resp B/P (MAP) Pulse Ox O2 Delivery O2 Flow Rate FiO2 07/11/17 13:18 36.2 93 16 140/83 (102) 94 Room Air 07/11/17 12:51 136/88 07/11/17 12:49 90 9 98 07/11/17 12:49 90 9 07/11/17 12:48 90 16 07/11/17 12:48 91 16 92 07/11/17 12:46 134/103 07/11/17 12:43 91 10 07/11/17 12:43 90 10 91 07/11/17 12:42 36.8 90 12 138/85 94 Room Air 07/11/17 12:42 86 11 07/11/17 12:42 90 11 93 07/11/17 12:41 138/85 07/11/17 12:37 86 13 96 07/11/17 12:37 81 13 07/11/17 12:36 142/80 07/11/17 12:32 90 12 99 07/11/17 12:32 90 12 07/11/17 12:31 144/92 07/11/17 12:29 93 12 07/11/17 12:29 93 12 98 07/11/17 12:26 129/95 07/11/17 12:24 87 8 96 07/11/17 12:24 88 8 07/11/17 12:23 90 10 95 07/11/17 12:23 90 10 07/11/17 12:21 162/83 07/11/17 12:18 93 13 07/11/17 12:18 92 13 99 18 12:16 131/78 18 12:13 92 15 100 18 12:13 92 15 07/11/17 12:11 125/60 18 12:09 143/67 07/11/17 12:08 36.1 96 16 143/67 98 Diffusion Mask 6 07/11/17 10:38 82 17/18 10:38 83 22 100 17/18 10:37 85 23 100 18 10:37 83 18 10:36 138/85 5/17/18 10:33 84 07/11/17 10:33 84 17 99 07/11/17 10:31 151/86 07/11/17 10:28 90 25 98 07/11/17 10:28 89 07/11/17 10:27 140/120 07/11/17 10:23 80 0 07/11/17 10:18 82 0 07/11/17 10:13 0 07/11/17 10:08 81 0 95 07/11/17 10:08 82 07/11/17 10:03 84 0 97 07/11/17 10:03 81 07/11/17 09:58 78 07/11/17 09:58 78 0 94 07/11/17 09:53 81 0 95 07/11/17 09:53 81 07/11/17 09:48 77 0 94 07/11/17 09:48 77 07/11/17 09:43 78 07/11/17 09:43 77 0 94 07/11/17 09:38 79 0 95 07/11/17 09:38 80 07/11/17 09:33 79 0 94 07/11/17 09:33 78 07/11/17 08:31 36.8 90 16 144/84 (104) 96 Room Air Notes Mental Status: alert / awake / arousable, participated in evaluation Pt Amnestic to Procedure: Yes Nausea / Vomiting: adequately controlled Pain: adequately controlled Airway Patency, RR, SpO2: stable & adequate BP & HR: stable & adequate Hydration State: stable & adequate Anesthetic Complications: no major complications apparent
[2017-07-11 14:11] VITALS: BP 133/84; PULSE 96; O2SAT 95
--- NOTE | 2017-07-11 14:26 | OPERATIVE REPORT ---
DATE OF OPERATION: 07/11/2017 PREOPERATIVE DIAGNOSIS: Medium sized left rotator cuff tear. POSTOPERATIVE DIAGNOSIS: Same. PROCEDURE: Left shoulder diagnostic arthroscopy with limited debridement, medium size rotator cuff repair and arthroscopic biceps tenodesis, loose body removal. SURGEON: Dr. Antonio Smith. TECHNICAL ADVISOR: Tito Garces PA-C, whose assistance was necessary for positioning the arm and help with instrumentation and closure. ANESTHESIA: General with a left interscalene nerve block. COMPLICATIONS: None. CONDITION: Stable to PACU. INDICATIONS: Niya is a pleasant 67-year-old female who fell on her left shoulder back in February. She has been having left shoulder pain since. MRI and clinical examination were diagnostic for medium-sized rotator cuff tear. After failing conservative treatment, she elected to undergo arthroscopy. On 07/11/2017, she arrived at [facility] for the above procedure. She was seen in the preoperative holding area and the operative extremity was identified and signed. She was given a preoperative antibiotic and a left interscalene nerve block. She was taken back to the operating room, laid on the table in supine position and put under general anesthesia. She was then put into the beach chair position. The left shoulder was prepped and draped in sterile fashion. Time-out was done. The patient's operative extremity was properly identified. A scope was introduced in the posterior portal. Diagnostic arthroscopy showed extensive grade 3 and grade 4 chondral changes throughout the humeral head and grade 2 and grade 3 chondral changes throughout the glenoid. There was a lot of fraying in the anterior labrum. The biceps tendon was frayed. There was a tear of the entire supraspinatus. An anterior portal was made. A shaver was used to do a limited debridement of the intraarticular structures. There were 2 large loose bodies found in the subcoracoid space. Pictures were taken and these were removed. They are about 1 cm in diameter. The scope was then put in the subacromial space. A lateral portal was made. A shaver was used to do a complete subacromial and subdeltoid bursectomy. I saw no signs of external impingement, so an acromioplasty was not done. There were 2 loose bodies in the subacromial space. Pictures were taken and these loose bodies were removed. Attention was turned to the rotator cuff. An additional anterolateral portal was made and Janice cannula was placed in each lateral portals. It was a medium-sized almost U-shaped cuff tear. The greater tuberosity was prepared with a ring curette and a microfracture. The rotator cuff was then fixed with an Arthrex SpeedBridge configuration using 4.75 mm BioComposite SwiveLock suture anchors and FiberTapes. The long head of the biceps tendon was tagged with a FiberLink and incorporated into the anterior medial anchor. This completed a biceps tenodesis. Multiple pictures were taken. The scope was put back into the glenohumeral joint, the articular margin of the rotator cuff had been restored, and pictures were taken. The long head of the biceps tendon was tenotomized and then off the glenoid. A shaver was used to do complete a chondroplasty and remove any additional debris intraarticularly. Arthroscopic instrument removed from the shoulder. Portal sites were closed with 3-0 nylon. She was then placed in a soft dressing and abduction arm sling. She was then extubated, transferred to a [facility] and taken to the postanesthesia care unit in stable condition. She tolerated the procedure well. I attest to the content of the Intraoperative Record and any orders documented therein. Any exception s are noted below.
== END | disposition home or self-care (01) ==
LOC: X.SURG 08:04
PROVIDERS: ATTEND Orthopaedic Surgery
DX: S46.012A Strain of muscle(s) and tendon(s) of the rotator cuff of left shoulder, initial encounter (principal); W19.XXXA Unspecified fall, initial encounter; E66.9 Obesity, unspecified; J44.9 Chronic obstructive pulmonary disease, unspecified; I10 Essential (primary) hypertension; Z79.899 Other long term (current) drug therapy; Z98.51 Tubal ligation status; Z82.49 Family history of ischemic heart disease and other diseases of the circulatory system; Z80.8 Family history of malignant neoplasm of other organs or systems; Z82.3 Family history of stroke

== ENCOUNTER 2018-03-28 06:23 | Inpatient (IN) ==
--- NOTE | 2018-03-04 13:57 | PAT Medication Instructions ---
Medication Instructions Date of Service March 04, 2018 Home Medications albuterol sulfate 2 puff INHALATION Q6H PRN albuterol sulfate 2.5 mg INHALATION QID PRN diclofenac sodium 75 mg PO BID [Tylenol PM Extra Strength] 2 tab PO HS gabapentin 100 mg PO TID ginseng 100 mg PO QAM hydrochlorothiazide 25 mg PO QAM iodine [Kelp (iodine)] 150 mcg PO QAM lactobacillus [Probiotic] 3,000 mmu cells PO QAM losartan 50 mg PO QAM omeprazole 20 mg PO QAM simvastatin 40 mg PO PM tramadol 50 mg PO Q6H PRN umeclidinium-vilanterol [Anoro Ellipta] 1 inh INHALATION QAM ASK your surgeon for instructions diclofenac sodium 75 mg PO BID STOP taking 2 weeks before surgery ginseng 100 mg PO QAM iodine [Kelp (iodine)] 150 mcg PO QAM DO NOT take the morning of surgery hydrochlorothiazide 25 mg PO QAM lactobacillus [Probiotic] 3,000 mmu cells PO QAM losartan 50 mg PO QAM Take morning of surgery With a small sip of water, OTHERWISE NOTHING TO EAT OR DRINK AFTER MIDNIGHT: albuterol sulfate 2 puff INHALATION Q6H PRN (if needed, and bring with you to the hospital) albuterol sulfate 2.5 mg INHALATION QID PRN (if needed) gabapentin 100 mg PO TID omeprazole 20 mg PO QAM tramadol 50 mg PO Q6H PRN (if needed, may be taken up to four hours before surgery) umeclidinium-vilanterol [Anoro Ellipta] 1 inh INHALATION QAM Take evening before surgery albuterol sulfate 2 puff INHALATION Q6H PRN (if needed) albuterol sulfate 2.5 mg INHALATION QID PRN (if needed) [Tylenol PM Extra Strength] 2 tab PO HS gabapentin 100 mg PO TID simvastatin 40 mg PO PM tramadol 50 mg PO Q6H PRN (if needed) Other Notes If you have any questions please call us at [phone] or [phone] or [phone] or [phone]
--- NOTE | 2018-03-04 14:21 | Anesthesiology Consultation ---
Date of Service March 04, 2018 Assessment & Plan (1) Encounter for pre-operative examination: Chart Review Chart Review: Acceptable Risk for Surgery and Patient seen in Pre Admission Testing Teaching & Discussion Instructed NPO after midnight before surgery, except medications with 15 cc of water. Medication instructions provided according to the PAT guidelines. History Surgery Operation Date: 03/28/18 10:40 Proposed Procedures p Right Anterior Total Hip Replacement - Antonio Smith, Height/Weight Height: 5 ft 3 in Weight: 87.5 kg Allergies Allergy/AdvReac Type Severity Reaction Status Date / Time oxycodone [From OxyContin] Allergy Unknown Hives Verified 02/26/18 10:44 Medications Home Medications Medication Instructions Recorded Confirmed Last Taken albuterol sulfate 2 puff INHALATION Q6H PRN 02/26/18 02/26/18 Unknown albuterol sulfate 2.5 mg INHALATION QID PRN 02/26/18 02/26/18 Unknown diclofenac sodium 75 mg PO BID 02/26/18 02/26/18 Unknown diphenhydramine-acetaminophen 2 tab PO HS 02/26/18 02/26/18 Unknown [Tylenol PM Extra Strength] gabapentin 100 mg PO TID 02/26/18 02/26/18 Unknown ginseng 100 mg PO QAM 02/26/18 02/26/18 Unknown hydrochlorothiazide 25 mg PO QAM 02/26/18 02/26/18 Unknown iodine [Kelp (iodine)] 150 mcg PO QAM 02/26/18 02/26/18 Unknown lactobacillus combination no.4 3,000 mmu cells PO QAM 02/26/18 02/26/18 Unknown [Probiotic] losartan 50 mg PO QAM 02/26/18 02/26/18 Unknown omeprazole 20 mg PO QAM 02/26/18 02/26/18 Unknown simvastatin 40 mg PO PM 02/26/18 02/26/18 Unknown tramadol 50 mg PO Q6H PRN 02/26/18 02/26/18 Unknown umeclidinium-vilanterol [Anoro 1 inh INHALATION QAM 02/26/18 02/26/18 Unknown Ellipta] Past Medical History Medical History Chronic obstructive pulmonary disease GERD (gastroesophageal reflux disease) Hyperlipidemia Hypertension Osteoarthritis Past Family History Family History Grandfather (Maternal) Family history of diabetes mellitus Aunt Family history of diabetes mellitus Brother Family history of diabetes mellitus Sister Family history of diabetes mellitus Father Family hx of colon cancer Past Surgical History Surgical History H/O colonoscopy H/O tubal ligation History of repair of rotator cuff LEFT Past Anesthesia History No Hx of Anesthesia Complications and No Family Hx of Anesthesia Complications History of PONV No Motion Sickness Screening History of Motion Sickness: No Social History Smoking Status: Former smoker tobacco type: cigarettes Smoking cigarettes per day: h/o 1ppd x 49yrs Do You Dip or Chew Tobacco: No Smoking End Date: QUIT 4 YRS AGO Hx Alcohol Use: Yes Alcohol type: beer and wine alcohol intake frequency: holidays/special occasions only Hx Substance Use: No Exercise / Class Metabolic Activity III < 4 Walking/Shop/Light housework (Limited by hip pain lately but no CP or SOB with ambulation.) Review of Systems Pt denies any recent chest pain, shortness of breath, palpitations, fever or URI. Mild dry cough recently. Physical Exam Vital Signs BP: 150/79 (manual 126/86) P: 70 SPO2: 97% RA T: 97.8 F R: 16 ENMT Mouth: + dentures and + edentulous Thyromental Distance: < 3.5 Finger Breadths (3) Mallampati Class: II Neck normal visual inspection; neck extension not limited Respiratory normal respiratory effort Auscultation: lungs clear to auscultation bilaterally Cardiovascular Rate/Rhythm: regular rate and regular rhythm Heart Sounds: no murmur Vessels: no carotid bruit Extremities: no edema Testing Electrocardiogram Date: 07/08/17 Findings: + NSR @ (74) Chest X-Ray Date: 03/04/18 Findings: + NAD Laboratory Results 03/04/18 14:16 03/04/18 14:16 Blood Type O Positive 03/04/18 14:16 Antibody Screen POSITIVE A 03/04/18 14:16 PT 10.7 Seconds (9.0-12.0) 03/04/18 14:16 INR 1.1 (0.9-1.1) 03/04/18 14:16 APTT 31.1 Seconds (21.0-31.0) H 03/04/18 14:16 Spoke to Khris at [facility] re: + antibodies; no further w/u needed.
--- NOTE | 2018-03-04 15:04 | XRay Report ---
XR chest Pre-admission PA/Lat CLINICAL HISTORY: PAT preoperative evaluation COMPARISON STUDY: 12/22/2016 FINDINGS: The bones soft tissues and hemidiaphragms are normal. The cardiomediastinal silhouette is n ormal. The lungs are clear. The pulmonary vasculature is normal. IMPRESSION: Negative chest. The above report was generated using voice recognition software. It may contain grammatical, syntax or spelling errors. Electronically signed by: Omid Gold M.D. 03/04/2018 3:02 PM
[2018-03-04 15:52] LABS: Basophils # (auto) 0.02 K/uL (0-0.2); Basophils % (auto) 0.2 %; Eosinophils # (auto) 0.18 K/uL (0-0.5); Hematocrit (blood only) 38.6 % (37-47); Hemoglobin 12.6 g/dL (12.0-16.0); Immature Granulocytes # (auto) 0.01 K/uL (0.00-0.02); Immature Granulocytes % (auto) 0.1 %; Lymphocytes % (auto) 18.8 %; Mean Corpuscular Hgb Conc 32.6 g/dL (32-36); Mean Corpuscular Volume 91.7 fL (80-100); Mean Platelet Volume 10.3 fL (7.4-10.4); Monocytes # (auto) 0.56 K/uL (0.11-0.59); Monocytes % (auto) 6.2 %; Neutrophils # (auto) 6.58 K/uL (1.4-6.5); Neutrophils % (auto) 72.7 %; Platelet Count 305 K/uL (130-400); RDW Coefficient of Variation 14.3 % (11.5-14.5); RDW Standard Deviation 47.9 fL (36.4-46.3); Red Blood Count 4.21 M/uL (4.2-5.4); White Blood Count 9.05 K/uL (4.8-10.8)
[2018-03-04 16:01] LABS: INR 1.1 (0.9-1.1); Partial Thromboplastin Ratio 1.2; Partial Thromboplastin Time 31.1 Seconds (21.0-31.0); Prothrombin Time 10.7 Seconds (9.0-12.0)
[2018-03-04 16:09] LABS: BUN Creatinine Ratio 20.4 (10-20); Calcium 9.2 mg/dl (8.5-10.1); Creatinine Clr Calc Pharmacy 78.4 ml/min; Est GFR (African American) 98.8; Est GFR (Non-African American) 85.2; Potassium 3.9 mmol/L (3.5-5.1)
--- NOTE | 2018-03-27 06:37 | History & Physical Report ---
Date of Service March 27, 2018 Assessment & Plan (1) Osteoarthritis of right hip: We will proceed with a right anterior total hip arthroplasty. Postoperatively she will be started on aspirin for DVT prophylaxis. She will be kept in the hospital overnight for postoperative medical management. She plans to use energy physical therapy upon discharge. Present on Admission?: Yes History of Present Illness Chief Complaint: Primary osteoarthritis of the right hip Primary Care Provider: Catrachita Ferguson MD Niya is a pleasant 67-year-old female who is been dealing with chronic increasing right hip and groin pain. X-rays and clinical examination have been diagnostic for primary osteoarthritis of the right hip. After failing conservative treatment, she is elected to proceed with a right anterior total hip arthroplasty. Allergies Allergy/AdvReac Type Severity Reaction Status Date / Time oxycodone [From OxyContin] Allergy Unknown Hives Verified 02/26/18 10:44 Home Medications Home Medications Medication Instructions Recorded Confirmed Type albuterol sulfate 2 puff INHALATION Q6H PRN 02/26/18 02/26/18 History albuterol sulfate 2.5 mg INHALATION QID PRN 02/26/18 02/26/18 History diclofenac sodium 75 mg PO BID 02/26/18 02/26/18 History diphenhydramine-acetaminophen 2 tab PO HS 02/26/18 02/26/18 History [Tylenol PM Extra Strength] gabapentin 100 mg PO TID 02/26/18 02/26/18 History ginseng 100 mg PO QAM 02/26/18 02/26/18 History hydrochlorothiazide 25 mg PO QAM 02/26/18 02/26/18 History iodine [Kelp (iodine)] 150 mcg PO QAM 02/26/18 02/26/18 History lactobacillus combination no.4 3,000 mmu cells PO QAM 02/26/18 02/26/18 History [Probiotic] losartan 50 mg PO QAM 02/26/18 02/26/18 History omeprazole 20 mg PO QAM 02/26/18 02/26/18 History simvastatin 40 mg PO PM 02/26/18 02/26/18 History tramadol 50 mg PO Q6H PRN 02/26/18 02/26/18 History umeclidinium-vilanterol [Anoro 1 inh INHALATION QAM 02/26/18 02/26/18 History Ellipta] Past Med/Surg History Medical History Chronic obstructive pulmonary disease GERD (gastroesophageal reflux disease) Hyperlipidemia Hypertension Osteoarthritis Surgical History H/O colonoscopy H/O tubal ligation History of repair of rotator cuff LEFT Family History Grandfather (Maternal) Family history of diabetes mellitus Aunt Family history of diabetes mellitus Brother Family history of diabetes mellitus Sister Family history of diabetes mellitus Father Family hx of colon cancer Social History Current Living Situation: Spouse Other Information That Helps Us Care for You: No Feels Safe at Home: Yes Safety Concerns: Feels Safe At This Time Smoking Status: Former smoker Tobacco Type: cigarettes Cigarettes per Day: h/o 1ppd x 49yrs Do You Dip or Chew Tobacco: No Smoking End Date: QUIT 4 YRS AGO Hx Alcohol Use: Yes Alcohol type: beer and wine Alcohol Intake Frequency: holidays/special occasions only Hx Substance Use: No Beliefs That Will Affect Care: None Preferred Language: Swedish Communication Ability: Effective Calender Let Off Helper Required: No Review of Systems All systems reviewed & are unremarkable except as noted in HPI & below Physical Exam 2 Constitutional: WD/WN, vitals as above Eyes: PERRL, conjunctivae normal, anicteric sclerae ENMT: external ear and nose normal, oropharynx normal Neck: trachea midline, no thyromegaly Respiratory: normal respiratory effort Cardiovascular: RRR, no murmur, no edema Gastrointestinal (Abdomen): normal bowel sounds, soft, nontender, no hepatosplenomegaly Musculoskeletal: Physical examination of the right hip reveals decreased range of motion with flexion, internal and external rotation. There is significant groin pain with forced internal rotation of the hip his leg lengths are essentially equal. Psychiatric: A+Ox3, euthymic affect Results & Data Diagnostic Findings Radiographs of the right hip and pelvis demonstrate advanced osteoarthritis with joint space narrowing osteophyte formation and [id number] articulation.
[~2018-03-28 06:23] MED LIST changes: +ACETAMINOPHEN 500 MG TAB PO SCH; -ALBINS/ INH; -ALBU18002 INH; -ATOR-24 PO; -ATROPINE SULFATE 0.1 MG/ML 5ML SYR IV PRN; -BUPIVACAINE 0.25% 30 ML VIAL ONE; +CEFAZOLIN 2000MG 2,000 MG/15 ML SYR IV SCH; -CEFAZOLIN 2000MG IV PUSH 15 ML IV SCH; -DEXAMETHASONE SOD INJ 4 MG/ML VIAL IV PRN; -DEXAMETHASONE SOD INJ 4 MG/ML VIAL ONE; -DICL75TA2 PO; -EpHEDrine SULFATE 50MG/5ML SYR ONE; -EpHEDrine SULFATE INJ 50 MG/ML AMP IV PRN; -EpINEphrine INJ 1MG/ML AMP 1 MG/ML AMP ONE; +FAMOTIDINE 20 MG TAB PO SCH; -FENTANYL CITRATE INJ 50 MCG/1 ML 2 ML VIAL ONE; -GABA-112 PO; +GABAPENTIN 300 MG PO SCH; -GINSCAP3 PO; -HYDR25TA4 PO; -KETO10TA PO; -KETOROLAC TROMETHAMINE 30 MG/ML VIAL IV. PRN; -LABETALOL HCL IV 5 MG/ML 20ML IV PRN; +LACTATED RINGER'S 1,000 ML IV SCH; -LACTATED RINGER'S 1000ML 1,000 ML IV SCH; -LIDOCAINE HCL 2% 2 ML VIAL (20MG/ML) ONE; -LOSA50TA6 PO; +LR 15ML/HR IV SCH; +LR 500ML BOLUS, THEN 15ML/HR IV SCH; -METOCLOPRAMIDE HCL INJ 5 MG/ML 2 ML VIAL IV PRN; -MIDAZOLAM HCL 1 MG/ML 2ML VIAL ONE; -MoRPHine SULFATE 10 MG/ML CARP/VIAL IV PRN; -OMEP20CA9 PO; -ONDANSETRON INJ 2 MG/ML 2 ML VIAL IV PRN; -ONDANSETRON INJ 2 MG/ML 2 ML VIAL ONE; -OXYC-57 PO; -OXYCODONE/ACETAMINOPHEN 5-325 TAB PO PRN; -PHENYLEPHRINE 100MCG/ML 5ML SYR IV PRN; -PROPOFOL IV EMULSION 10 MG/ML 20 ML VIAL ONE; -ROPIVACAINE 0.5% 5 MG/ML 30 ML VIAL ONE; +ROPIVACAINE 0.5% HCL/PF 150 MG, BUPIVACAINE 0.5% MPF 30 ML, EPINEPHrine 30MG/30ML (OR U... INFIL SCH; -SODIUM CHLORIDE 0.9% 1000ML 1,000 ML IV SCH; +TRANEXAMIC ACID 1,000 MG **IV Pre-op IV SCH; -UMEC1AER INH; -[UNRECOGNIZED DRUG - OTHER] PO; -[UNRECOGNIZED DRUG - OTHER] PO
[2018-03-28] MEDS ORDERED: BUPIVACAINE 0.5 % 5 MG/1 ML PF 10ML VIAL ONE (06:28)
[2018-03-28] MEDS ORDERED: TRANEXAMIC ACID 1,000 MG **IV Intra-op IV SCH (06:30)
--- NOTE | 2018-03-28 06:55 | History & Physical Bridge Note ---
Date of Service March 28, 2018 History & Physical Bridge Note I have examined the patient, reviewed the History & Physical and in the interval since the performance of the History & Physical I have noted the following changes of clinical significance: no changes noted
[2018-03-28] MEDS ORDERED: ePHEDrine sulfate 50 MG/ML AMP IV PRN (08:50)
[2018-03-28] MEDS ORDERED: ATROPINE SULFATE 0.1 MG/ML 10ML SYR IV PRN (08:50)
[2018-03-28] MEDS ORDERED: fentaNYL citrate 100 MCG/2 ML VIAL ONE (08:59)
[2018-03-28] MEDS ORDERED: MIDAZOLAM HCL 1 MG/ML 2ML VIAL ONE ×2 (08:59)
[2018-03-28] MEDS ORDERED: POVIDONE-IODINE OP SOLN 30 ML BTL ONE (09:28)
[2018-03-28] MEDS ORDERED: ORTHO JOINT ANESTHETIC ONE (09:28)
[2018-03-28] MEDS ORDERED: PROPOFOL IV EMULSION 10 MG/ML 20 ML VIAL IV ONE (09:54)
[2018-03-28] MEDS ORDERED: PHENYLEPHRINE 100MCG/ML 5ML SYR ONE (10:27)
[2018-03-28] MEDS ORDERED: ePHEDrine sulfate 50 MG/ML SYR ONE (10:27)
--- NOTE | 2018-03-28 12:00 | Operative Report ---
Post Operative Report Pre & Post Diagnosis Operation Date: 03/28/18 08:50 Pre-Op Diagnosis: Right Hip Degenerative Joint Disease Post-Op Diagnosis: Right Hip Degenerative Joint Disease Procedure Operation Date: 03/28/18 08:50 Actual Procedures p Right Anterior Total Hip Replacement(Right) - Antonio Smith DO Surgeon Antonio Smith DO Electrical Logger Antonio Castillo PAC Estimated Blood Loss 300 Findings Consistent with Post-Op Diagnosis Specimens Right femoral head Complications none Disposition Disposition: Recovery Room Indications Niya is a pleasant 67-year-old female who is been complaining of chronic increasing right hip and groin pain. X-rays and clinical examination were diagnostic for primary osteoarthritis of the right hip. After failing extensive conservative treatment, she elected to proceed with a right anterior total hip arthroplasty. Description of Procedure Implants used Biomet Taperloc total hip arthroplasty system with a size 6 standard offset Taperloc stem, a 48 mm G7 cup with a 25mm screw, an E1 polyethylene liner, a 32 mm ceramic head with a standard neck. Patient arrived at the hospital for the above procedure. They were seen in the preoperative holding area and the operative extremity was identified and signed. They were given a spinal anesthetic. They were given a preoperative antibiotic and TXA. They were taken back To the operating room and laid on the table in the supine position. The leg was brought out through a Puristst leg positioner. The hip was then prepped and draped in sterile fashion. A timeout was done and the patient in upper extremities properly identified. An anterior approach was used. Dissection was taken down through the fascia and the tensor muscle belly was retracted laterally and the rectus was retracted medially. The circumflex vessels were identified and ligated. The capsule was then incised and tagged for later repair. The femoral neck was then cut and the femoral head was removed. The acetabulum was exposed. Time was spent doing a complete circumferential labral release. Sequential reaming of the acetabulum up to a size 47 reamer was done. Final reamings were done under fluoroscopy to ensure appropriate version. A Biomet 48 mm G7 cup was then impacted into place. A single 25 mm screw was placed. The E1 polyethylene liner was then snapped into place. Surrounding soft tissues were then injected with 100 cc of an orthopedic pain control cocktail. The proximal femur was then exposed. Sequential broaching up to a size 6 broach was done. Off that broach a size 32 head with a 0 neck was trialed. The hip was reduced and fluoroscopic images showed anatomic alignment of the implants in acceptable length. The broach was removed. The final size 6 standard offset Taperloc stem was then impacted into place. A ceramic 32 mm head with a 0 neck was then impacted into place in the hip was reduced. Final fluoroscopic images showed anatomic reduction of the hip. The capsule was then closed with #1 Vicryl suture. A dilute betadyne lavage was then done for 3 minutes. The joint was then irrigated with normal saline solution. The fascia was closed with #1 PDS suture. Skin was closed with 2-0 Vicryl, taryn, and a Ngoc VAC dressing. The patient was then transferred to a hospital bed and taken to the post anesthesia care unit in stable condition. They tolerated the procedure well. I attest to the content of the Intraoperative Record and any orders documented therein. Any exceptions are noted below.
--- NOTE | 2018-03-28 12:35 | Fluoroscopy Report ---
FL hip RT 1V CLINICAL HISTORY: RT ANTERIOR HIP. Intraoperative study. COMPARISON STUDY: None. FLUOROSCOPY TIME: 32 seconds. FINDINGS: 2 fluoroscopic spot images of the right hip demonstrated right total arthroplasty. The hard schwab is intact. No fracture or dislocation. IMPRESSION: Fluoroscopy provided for right total hip arthroplasty. Electronically signed by: Myles Nolasco M.D. 03/28/2018 12:34 PM
--- NOTE | 2018-03-28 12:41 | XRay Report ---
XR hip 1V RT w pelvis CLINICAL HISTORY: Postoperative study COMPARISON: None. DISCUSSION: There are postsurgical changes of a total right hip arthroplasty. There is no dislocation . There are no acute fractures. There are overlying skin taryn. IMPRESSION: Postsurgical changes of a total right hip arthroplasty Electronically signed by: Keith Burden M.D. 03/28/2018 12:40 PM
--- NOTE | 2018-03-28 12:42 | Anesthesiology Progress Note ---
Date of Service March 28, 2018 Anesthesia Post Procedure Vital Signs Vital Signs: Temp Pulse Pulse Resp BP Pulse Ox 03/28/18 12:30 36.3 C L 69 12 102/66 100 03/28/18 12:20 74 13 106/61 100 03/28/18 12:13 36.4 C L 77 14 104/62 100 03/28/18 07:01 36.6 C 91 H 18 143/98 H 99 Pain Intensity Right Knee: Pain Intensity: 2 Left Breast: Pain Intensity: 5 Notes Mental Status: alert / awake / arousable and participated in evaluation Patient Amnestic to Procedure: Yes Nausea / Vomiting: adequately controlled Pain: adequately controlled Airway Patency, RR, SpO2: stable & adequate BP & HR: stable & adequate Hydration State: stable & adequate Neuraxial Anesthesia: was administered and sensory block is resolving Anesthetic Complications: no major complications apparent
[2018-03-28] MEDS ORDERED: HYDROmorphone INJ 0.5 MG/0.5 ML SYR IV PRN (13:29)
[2018-03-28] MEDS ORDERED: TRAMADOL HCL 50 MG TABLET PO PRN (13:29)
[2018-03-28] MEDS ORDERED: METOCLOPRAMIDE HCL INJ 5 MG/ML 2 ML VIAL IV PRN (13:29)
[2018-03-28] MEDS ORDERED: ALBUTEROL 0.083% NEBU SOLN 3 ML VIAL INH PRN (13:29)
[2018-03-28] MEDS ORDERED: SODIUM CHLORIDE 0.9% 1000ML 1,000 ML IV SCH (13:29)
[2018-03-28] MEDS ORDERED: NALOXONE HCL 0.4 MG/1 ML VIAL/CARP IV PRN (13:29)
[2018-03-28] MEDS ORDERED: BISACODYL 10 MG SUPP PR PRN (13:29)
[2018-03-28] MEDS ORDERED: ONDANSETRON INJ 2 MG/ML 2 ML VIAL IV PRN (13:29)
[2018-03-28] MEDS ORDERED: MAGNESIUM HYDROXIDE SUSP 30 ML UDC PO PRN (13:29)
[2018-03-28] MEDS ORDERED: ALBUTEROL HFA 8 GM INHALER INH PRN (13:29)
[2018-03-28] MEDS: ACETAMINOPHEN 500 MG TAB PO SCH ×2 (14:21→21:34)
[2018-03-28] MEDS: KETOROLAC TROMETHAMINE 15 MG/ML VIAL IV SCH ×2 (14:22→21:32)
[2018-03-28] MEDS: GABAPENTIN 100 MG CAP PO SCH ×2 (14:36→21:33)
[2018-03-28] MEDS: CEFAZOLIN 2000MG 2,000 MG/15 ML SYR IV SCH (18:25)
[2018-03-28] MEDS: DOCUSATE SODIUM 100 MG CAP PO SCH (21:33)
[2018-03-28] MEDS: ASPIRIN 81 MG ECTAB PO SCH (21:34)
[2018-03-28] MEDS: SENNA 8.6 MG TAB PO SCH (21:34)
[2018-03-28] MEDS: SIMVASTATIN 40 MG TAB PO SCH (21:35)
[2018-03-29] MEDS: KETOROLAC TROMETHAMINE 15 MG/ML VIAL IV SCH ×4 (01:40→20:37)
[2018-03-29] MEDS: CEFAZOLIN 2000MG 2,000 MG/15 ML SYR IV SCH (01:41)
[2018-03-29 05:56] LABS: Basophils # (auto) 0.01 K/uL (0-0.2); Basophils % (auto) 0.1 %; Eosinophils # (auto) 0.01 K/uL (0-0.5); Eosinophils % (auto) 0.1 %; Hematocrit (blood only) 31.4 % (37-47); Hemoglobin 10.6 g/dL (12.0-16.0); Immature Granulocytes # (auto) 0.03 K/uL (0.00-0.02); Immature Granulocytes % (auto) 0.3 %; Lymphocytes # (auto) 1.31 K/uL (1.2-3.4); Mean Corpuscular Hgb Conc 33.8 g/dL (32-36); Monocytes % (auto) 7.6 %; Neutrophils # (auto) 9.66 K/uL (1.4-6.5); Neutrophils % (auto) 80.9 %; Platelet Count 238 K/uL (130-400); RDW Coefficient of Variation 13.6 % (11.5-14.5); RDW Standard Deviation 44.1 fL (36.4-46.3); Red Blood Count 3.57 M/uL (4.2-5.4); White Blood Count 11.92 K/uL (4.8-10.8)
[2018-03-29 06:22] LABS: BUN Creatinine Ratio 12.9 (10-20); Calcium 8.5 mg/dl (8.5-10.1); Creatinine Clr Calc Pharmacy 80.7 ml/min; Est GFR (African American) 104.9; Est GFR (Non-African American) 90.5; Potassium 2.8 mmol/L (3.5-5.1)
[2018-03-29] MEDS: ACETAMINOPHEN 500 MG TAB PO SCH ×3 (06:43→22:20)
--- NOTE | 2018-03-29 06:57 | Orthopedic Progress Note ---
Date of Service March 29, 2018 Assessment & Plan (1) Osteoarthritis of right hip: Overall she is doing very well. Is not having too much pain in the hip. She will be seen by physical therapy today for ambulation. She is on aspirin for DVT prophylaxis and tramadol for pain control. We will likely discharge her to home tomorrow with home physical therapy. Present on Admission?: Yes Subjective Niya was seen and examined at bedside this morning. Overall she is doing fairly well. She is not having too much pain in the hip. She is been up and ambulating to the bathroom. She was able to get some sleep last night. She has no complaints. Physical Exam 2 Vital Signs (Past 24 Hours): Last Vital Signs Temp 36.8 C 03/29/18 03:25 Pulse 81 03/29/18 03:25 Resp 16 03/29/18 03:25 BP 121/78 03/29/18 03:25 Pulse Ox 93 03/29/18 03:25 Musculoskeletal: On physical examination of the right hip, the Ngoc VAC dressing is to suction. Her leg lengths are equal. She is active dorsiflexion and plantarflexion of her right ankle. Results & Data Laboratory Results H & H 03/04/18 03/29/18 Range/Units 14:16 05:20 Hgb 12.6 10.6 L (12.0-16.0) g/dL Hct 38.6 31.4 L (37-47) % Coagulation 03/04/18 Range/Units 14:16 INR 1.1 (0.9-1.1) Diagnostic Findings Postoperative x-rays of the right hip show the prosthesis to be in anatomic alignment without any evidence of fracture, dislocation, or loosening.
--- NOTE | 2018-03-29 08:18 | Anesthesiology Progress Note ---
Date of Service March 29, 2018 Anesthesia Post Procedure Vital Signs Vital Signs: Temp Pulse Pulse Resp BP Pulse Ox 03/29/18 06:59 36.9 C 76 16 107/70 97 03/29/18 03:25 36.8 C 81 16 121/78 93 03/28/18 22:47 36.9 C 86 16 120/80 91 03/28/18 16:35 36.6 C 69 18 129/77 93 03/28/18 15:07 36.4 C L 75 16 128/78 99 03/28/18 14:19 72 18 112/73 96 03/28/18 13:42 66 18 103/66 97 03/28/18 13:15 36.4 C L 70 18 114/73 97 03/28/18 12:52 63 12 108/68 100 03/28/18 12:40 72 18 103/58 L 100 03/28/18 12:30 36.3 C L 69 12 102/66 100 03/28/18 12:20 74 13 106/61 100 03/28/18 12:13 36.4 C L 77 14 104/62 100 Pain Intensity Right Knee: Pain Intensity: 2 Left Breast: Pain Intensity: 2 Right Dale: Pain Intensity: 2 Notes Mental Status: alert / awake / arousable and participated in evaluation Patient Amnestic to Procedure: Yes Nausea / Vomiting: adequately controlled Pain: adequately controlled Airway Patency, RR, SpO2: stable & adequate BP & HR: stable & adequate Hydration State: stable & adequate Neuraxial Anesthesia: was administered and sensory block resolved Anesthetic Complications: no major complications apparent and Pt Satisfied with anesthetic care
[2018-03-29] MEDS: VILANTEROL INH SCH (08:38)
[2018-03-29] MEDS: PANTOprazole 40 MG TAB PO SCH (08:38)
[2018-03-29] MEDS: MULTIVITAMIN TAB PO SCH (08:38)
[2018-03-29] MEDS: UMECLIDINIUM BRM INH SCH (08:38)
[2018-03-29] MEDS: hydroCHLOROthiazide 25 MG TAB PO SCH (08:39)
[2018-03-29] MEDS: DOCUSATE SODIUM 100 MG CAP PO SCH ×2 (08:39→20:18)
[2018-03-29] MEDS: LACTOBACILLUS ACIDOPHILUS (FLORANEX) TAB PO SCH (08:39)
[2018-03-29] MEDS: LOSARTAN POTASSIUM 50 MG TAB PO SCH (08:39)
[2018-03-29] MEDS: ASPIRIN 81 MG ECTAB PO SCH ×2 (08:40→20:18)
[2018-03-29] MEDS: GABAPENTIN 100 MG CAP PO SCH ×3 (08:41→20:18)
[2018-03-29] MEDS: SENNA 8.6 MG TAB PO SCH (20:19)
[2018-03-29] MEDS: SIMVASTATIN 40 MG TAB PO SCH (20:20)
[2018-03-30] MEDS: KETOROLAC TROMETHAMINE 15 MG/ML VIAL IV SCH ×2 (02:12→07:31)
[2018-03-30] MEDS: ACETAMINOPHEN 500 MG TAB PO SCH (06:03)
[2018-03-30] MEDS: UMECLIDINIUM BRM INH SCH (07:31)
[2018-03-30] MEDS: VILANTEROL INH SCH (07:31)
[2018-03-30] MEDS: GABAPENTIN 100 MG CAP PO SCH (07:32)
[2018-03-30] MEDS: hydroCHLOROthiazide 25 MG TAB PO SCH (07:32)
[2018-03-30] MEDS: LOSARTAN POTASSIUM 50 MG TAB PO SCH (07:32)
[2018-03-30] MEDS: DOCUSATE SODIUM 100 MG CAP PO SCH (07:32)
[2018-03-30] MEDS: ASPIRIN 81 MG ECTAB PO SCH (07:33)
[2018-03-30] MEDS: LACTOBACILLUS ACIDOPHILUS (FLORANEX) TAB PO SCH (07:33)
[2018-03-30] MEDS: PANTOprazole 40 MG TAB PO SCH (07:34)
[2018-03-30] MEDS: MULTIVITAMIN TAB PO SCH (07:34)
--- NOTE | 2018-03-30 09:13 | Orthopedic Progress Note ---
Date of Service March 30, 2018 Assessment & Plan (1) Osteoarthritis of right hip: Overall she is doing very well. She will be seen by physical therapy again this morning. She is on aspirin for DVT prophylaxis and tramadol for pain control. We will discharge her to home later this morning with [facility]. She will follow-up with orthopedics in 2 weeks. Present on Admission?: Yes Subjective Niya was seen and examined at bedside this morning. Overall she is doing very well. She is not having much pain in the hip. She was ambulating the hallways yesterday with physical therapy. She has no complaints. Physical Exam 2 Vital Signs (Past 24 Hours): Last Vital Signs Temp 36.6 C 03/30/18 06:30 Pulse 86 03/30/18 06:30 Resp 16 03/30/18 06:30 BP 120/92 03/30/18 06:30 Pulse Ox 93 03/30/18 06:30 Musculoskeletal: On physical examination of the right hip, the Ngoc VAC dressing is to suction. Her leg lengths are equal. She is active dorsiflexion and plantarflexion of the right ankle. Sensation is intact.
--- NOTE | 2018-03-30 09:14 | Discharge Summary ---
Date of Service March 30, 2018 Admission HPI Per Admitting Provider Niya is a pleasant 67-year-old female who is been dealing with chronic increasing right hip and groin pain. X-rays and clinical examination have been diagnostic for primary osteoarthritis of the right hip. After failing conservative treatment, she is elected to proceed with a right anterior total hip arthroplasty. Specialty Data Orthopedic H & H 03/04/18 03/29/18 Range/Units 14:16 05:20 Hgb 12.6 10.6 L (12.0-16.0) g/dL Hct 38.6 31.4 L (37-47) % Coagulation 03/04/18 Range/Units 14:16 INR 1.1 (0.9-1.1) Discharge Data Consultations 03/29/18 08:00 Consult Case Management - Discharge Planning Routine Procedures Performed Operation Date: 03/28/18 08:50 Actual Procedures p Right Anterior Total Hip Replacement(Right) - Antonio Smith DO Hospital Course (1) Osteoarthritis of right hip: On March 28, 2018 Niya arrived at [facility] and underwent a right total hip arthroplasty without complication. She had a spinal anesthetic. Postoperatively she was started on aspirin for DVT prophylaxis and discharged to general orthopedic floors. Her hospital course was uneventful. On postop day #1 her H&H was stable and her pain was well controlled. She was able to ambulate well with physical therapy. On postop day #2 she continued to do well. She was then discharged to home with [facility]. She will follow-up with orthopedics in 2 weeks. Discharge Instructions Home Medications Medication Instructions Recorded Confirmed albuterol sulfate 2 puff INHALATION Q6H PRN 02/26/18 03/28/18 albuterol sulfate 2.5 mg INHALATION QID PRN 02/26/18 03/28/18 diclofenac sodium 75 mg PO BID 02/26/18 03/28/18 diphenhydramine-acetaminophen 2 tab PO HS 02/26/18 03/28/18 [Tylenol PM Extra Strength] gabapentin 100 mg PO TID 02/26/18 03/28/18 ginseng 100 mg PO QAM 02/26/18 03/28/18 hydrochlorothiazide 25 mg PO QAM 02/26/18 03/28/18 iodine [Kelp (iodine)] 150 mcg PO QAM 02/26/18 03/28/18 lactobacillus combination no.4 3,000 mmu cells PO QAM 02/26/18 03/28/18 [Probiotic] losartan 50 mg PO QAM 02/26/18 03/28/18 omeprazole 20 mg PO QAM 02/26/18 03/28/18 simvastatin 40 mg PO PM 02/26/18 03/28/18 umeclidinium-vilanterol [Anoro 1 inh INHALATION QAM 02/26/18 03/28/18 Ellipta] Previous Rx's Medication Instructions Recorded aspirin [Ecotrin Low Strength] 81 mg PO BID #84 tab 03/29/18 tramadol 50 mg PO Q6H PRN #40 tab 03/29/18
== END 2018-03-30 10:12 | disposition home or self-care (01) | DRG 470 ==
LOC: ASU 06:23 → 3E 12:04

== ENCOUNTER 2020-01-11 05:15 | Observation (INO) ==
--- NOTE | 2019-12-08 16:29 | PAT Medication Instructions ---
Medication Instructions Date of Service December 08, 2019 Home Medications Medication Instructions Recorded hydrocodone-acetaminophen [Laurel] 1 tab PO Q6H PRN #14 tab 04/29/19 montelukast 10 mg tablet 10 mg PO QPM #90 tab 09/03/19 albuterol sulfate 90 mcg/actuation 2 puff INHALATION Q6H PRN #18 gm 11/30/19 aerosol inhaler levocetirizine 5 mg tablet 5 mg PO DAILY PRN #30 tab 11/30/19 umeclidinium 62.5 mcg-vilanterol 1 inh INH .COMPLEX #90 dose 11/30/19 25 mcg/actuation powdr for inhalation Probiotic 3,000 mmu cells PO QAM albuterol sulfate 2.5 mg INHALATION QID PRN diclofenac sodium 75 mg PO DAILY diphenhydramine-acetaminophen [Tylenol PM Extra Strength] 2 tab PO HS PRN gabapentin 100 mg PO TID hydrochlorothiazide 25 mg PO QAM losartan 50 mg PO QAM omeprazole 20 mg PO QAM simvastatin 40 mg PO PM hydrocodone-acetaminophen [Laurel] 1 tab PO Q6H PRN montelukast 10 mg tablet 10 mg PO QPM albuterol sulfate 90 mcg/actuation aerosol inhaler 2 puff INHALATION Q6H PRN levocetirizine 5 mg tablet 5 mg PO DAILY PRN umeclidinium 62.5 mcg-vilanterol 25 mcg/actuation powdr for inhalation 1 inh INH .COMPLEX ASK your surgeon for instructions diclofenac sodium 75 mg PO DAILY DO NOT take the morning of surgery Probiotic 3,000 mmu cells PO QAM gabapentin 100 mg PO TID hydrochlorothiazide 25 mg PO QAM losartan 50 mg PO QAM levocetirizine 5 mg tablet 5 mg PO DAILY PRN Take morning of surgery With a small sip of water, OTHERWISE NOTHING TO EAT OR DRINK AFTER MIDNIGHT: albuterol sulfate 2.5 mg INHALATION QID PRN (if needed) gabapentin 100 mg PO TID omeprazole 20 mg PO QAM hydrocodone-acetaminophen [Laurel] 1 tab PO Q6H PRN (if needed, may be taken up to four hours before surgery) albuterol sulfate 90 mcg/actuation aerosol inhaler 2 puff INHALATION Q6H PRN (if needed) umeclidinium 62.5 mcg-vilanterol 25 mcg/actuation powdr for inhalation 1 inh INH .COMPLEX Take evening before surgery albuterol sulfate 2.5 mg INHALATION QID PRN (if needed) diphenhydramine-acetaminophen [Tylenol PM Extra Strength] 2 tab PO HS PRN (if needed) gabapentin 100 mg PO TID simvastatin 40 mg PO PM hydrocodone-acetaminophen [Laurel] 1 tab PO Q6H PRN (if needed) montelukast 10 mg tablet 10 mg PO QPM albuterol sulfate 90 mcg/actuation aerosol inhaler 2 puff INHALATION Q6H PRN (if needed) levocetirizine 5 mg tablet 5 mg PO DAILY PRN (if needed) umeclidinium 62.5 mcg-vilanterol 25 mcg/actuation powdr for inhalation 1 inh INH .COMPLEX Other Notes If you have any questions please call us at [phone] or [phone] or [phone] or [phone]
--- NOTE | 2019-12-10 11:09 | Anesthesiology Consultation ---
Date of Service December 10, 2019 Assessment & Plan (1) Encounter for pre-operative examination: - Per assessment on 12/09: Travel screen negative. No known COVID-19 positive contacts or current COVID-19 related symptoms. Surgeon arranging preop COVID testing. Awaiting results. - S/P Right TALYA: 03/28/18: SAB x 2 attempts (L3-L4 with 1 attempt at L4-L5) at [facility] - Pulmonary office visit: 11/30/19: "Patient states that breathing mendez she is doing pretty well." Last admission for COPD 1+ years ago. Multiple nodules- unchanged since 2017. Repeat CT planned for 09/2020. F/U 6 months recommended. Chart Review Chart Review: Acceptable Risk for Surgery and Patient seen in Pre Admission Testing Teaching & Discussion Pre-Anesthesia Teaching/Discussion Notes: Instructed NPO after midnight before surgery,except medications with 15 cc of water. Medication instructions provided according to the PAT guidelines. History Surgery Operation Date: 01/11/20 08:50 Proposed Procedures p Left Total Knee Arthroplasty - Antonio Smith DO Height/Weight Height: 5 ft 3 in Weight: 85.1 kg Allergies Allergy/AdvReac Type Severity Reaction Status Date / Time oxycodone [From OxyContin] Allergy Intermediate Hives Verified 11/30/19 10:17 Medications Home Medications Medication Instructions Recorded Confirmed Last Taken Probiotic 3,000 mmu cells PO QAM 02/26/18 12/09/19 09/21/18 albuterol sulfate 2.5 mg INHALATION QID PRN 02/26/18 12/09/19 09/07/18 diclofenac sodium 75 mg PO QAM 02/26/18 12/09/19 09/21/18 diphenhydramine-acetaminophen 2 tab PO HS PRN 02/26/18 12/09/19 09/21/18 [Tylenol PM Extra Strength] gabapentin 100 mg PO TID 02/26/18 12/09/19 09/21/18 hydrochlorothiazide 25 mg PO QAM 02/26/18 12/09/19 09/21/18 losartan 50 mg PO QAM 02/26/18 12/09/19 09/22/18 07:00 omeprazole 20 mg PO QAM 02/26/18 12/09/19 09/22/18 07:00 simvastatin 40 mg PO PM 02/26/18 12/09/19 09/21/18 montelukast 10 mg tablet 10 mg PO QPM #90 tab 09/03/19 12/09/19 Unknown albuterol sulfate 90 mcg/actuation 2 puff INHALATION Q6H PRN #18 gm 11/30/19 12/09/19 Unknown aerosol inhaler levocetirizine 5 mg tablet 5 mg PO DAILY PRN #30 tab 11/30/19 12/09/19 Unknown fluticasone propionate [Flonase] 1 spray INTRANASAL QAM 12/09/19 12/09/19 Unknown umeclidinium-vilanterol [Anoro 1 inh INH QAM 12/09/19 12/09/19 Unknown Ellipta] Past Medical History Medical History Chronic obstructive pulmonary disease GERD (gastroesophageal reflux disease) History of basal cell carcinoma back and forehead (was removed) Hyperlipidemia Hypertension Obesity Osteoarthritis Past Family History Family History Grandfather (Maternal) Family history of diabetes mellitus Aunt Family history of diabetes mellitus Brother Family history of diabetes mellitus Sister Family history of diabetes mellitus Father Family hx of colon cancer Past Surgical History Surgical History H/O colonoscopy H/O tubal ligation History of left cataract extraction History of repair of rotator cuff LEFT History of tooth extraction all teeth History of total hip arthroplasty Right TALYA: 03/28/18: SAB x 2 attempts (L3-L4 with 1 attempt at L4-L5) at [facility] Hx of right cataract extraction Past Anesthesia History No Hx of Anesthesia Complications and No Family Hx of Anesthesia Complications History of PONV No Hx of PONV and No Hx of Motion Sickness Social History Smoking Status: Former smoker tobacco type: cigarettes Smoking cigarettes per day: Quit 2016 Smoking End Date: Quit 2016 Hx Alcohol Use: Yes Alcohol type: beer and wine alcohol intake frequency: holidays/special occasions only Hx Substance Use: No substance use type: does not use Review of Systems Patient denies chest pain, shortness of breath, fever, chills, cough, wheezing, palpitations. Physical Exam Vital Signs VITALS BP 108/73 P 89 TEMP 98.4 SP02 98%RA RESP 16 PHYSICAL Full neck and c-spine range of motion. Full TMJ range of motion. TMD 3 finger breaths Mallampati Score 2 Dentition: full dentures upper/lower Lungs: clear throughout to auscultation Cardiac: regular rate and rhythm, no murmurs noted Spine: normal Carotid arteries: negative bruit Extremities: no edema Testing Laboratory Results 12/10/19 11:49 PT 10.9 Seconds (9.0-12.0) 12/10/19 11:49 INR 1.0 (0.9-1.1) 12/10/19 11:49 APTT 32.9 Seconds (21.0-31.0) H 12/10/19 11:49 Blood Type O Positive 12/10/19 11:49 Antibody Screen POSITIVE A 12/10/19 11:49 Allie at blood bank aware of positive antibodies. She states that nothing further needed from PAT preoperatively. 12/05/19 SODIUM 140 POTASSIUM 3.5 CHLORIDE 98 CO2 30 BUN 15 CREATININE 0.7 GLUCOSE 95 Electrocardiogram Date: 12/10/19 NSR at 75bpm. Low voltage QRS. No significant change compared to 07/08/2017 per communications tech review. Echocardiogram Date: 12/24/16 EF 60-65%. No RWMA. No significant valvular disease. Other Testing Chest CT: 10/19/19: 2 benign appearing nodules. Annual screening in 12 months recommended.
[2019-12-10 12:08] LABS: Basophils # (auto) 0.01 K/uL (0-0.2); Basophils % (auto) 0.1 %; Eosinophils % (auto) 1.1 %; Hematocrit (blood only) 40.2 % (37-47); Hemoglobin 13.5 g/dL (12.0-16.0); Immature Granulocytes # (auto) 0.02 K/uL (0.00-0.02); Immature Granulocytes % (auto) 0.2 %; Lymphocytes # (auto) 1.62 K/uL (1.2-3.4); Lymphocytes % (auto) 18.1 %; Mean Corpuscular Hemoglobin 29.9 pg (25-34); Mean Corpuscular Hgb Conc 33.6 g/dL (32-36); Mean Corpuscular Volume 88.9 fL (80-100); Mean Platelet Volume 9.5 fL (7.4-10.4); Monocytes # (auto) 0.81 K/uL (0.11-0.59); Monocytes % (auto) 9.1 %; Neutrophils # (auto) 6.37 K/uL (1.4-6.5); Neutrophils % (auto) 71.4 %; Platelet Count 313 K/uL (130-400); RDW Coefficient of Variation 14.6 % (11.5-14.5); RDW Standard Deviation 47.6 fL (36.4-46.3); Red Blood Count 4.52 M/uL (4.2-5.4); White Blood Count 8.93 K/uL (4.8-10.8)
[2019-12-10 12:22] LABS: Partial Thromboplastin Ratio 1.2; Partial Thromboplastin Time 32.9 Seconds (21.0-31.0); Prothrombin Time 10.9 Seconds (9.0-12.0)
--- NOTE | 2019-12-11 05:57 | Electrocardiogram Report ---
Test Reason : Blood Pressure : / mmHG Vent. Rate : 075 BPM Atrial Rate : 075 BPM P-R Int : 136 ms QRS Dur : 086 ms QT Int : 402 ms P-R-T Axes : 082 079 057 degrees QTc Int : 448 ms Normal sinus rhythm Low voltage QRS Borderline ECG When compared with ECG of 08-JUL-2017 08:40, No significant change was found Confirmed by Ronaldo Miramontes ([id number]) on 12/11/2019 5:57:05 AM Referred By: Antonio Smith Confirmed By:Ronaldo Miramontes
--- NOTE | 2020-01-06 20:25 | History & Physical Report ---
Date of Service January 06, 2020 Assessment & Plan (1) Osteoarthritis of left knee: We will proceed with a left total knee arthroplasty. Postoperatively she will be placed on aspirin for DVT prophylaxis and kept overnight in the hospital for postoperative medical management. She plans to use [facility] upon discharge. Present on Admission?: Yes History of Present Illness Chief Complaint: Primary osteoarthritis of the left knee Primary Care Provider: Rafa Vargas MD Niya is a pleasant 69-year-old female who is been dealing with chronic increasing left knee pain. X-rays and clinical examination have been diagnostic for advanced osteoarthritis of the left knee. After failing extensive conservative treatment, she has elected to proceed with a left total knee arthroplasty. Allergies Allergy/AdvReac Type Severity Reaction Status Date / Time oxycodone [From OxyContin] Allergy Intermediate Hives Verified 11/30/19 10:17 Home Medications Home Medications Medication Instructions Recorded Confirmed Type Probiotic 3,000 mmu cells PO QAM 02/26/18 12/09/19 History albuterol sulfate 2.5 mg INHALATION QID PRN 02/26/18 12/09/19 History diclofenac sodium 75 mg PO QAM 02/26/18 12/09/19 History diphenhydramine-acetaminophen 2 tab PO HS PRN 02/26/18 12/09/19 History [Tylenol PM Extra Strength] gabapentin 100 mg PO TID 02/26/18 12/09/19 History hydrochlorothiazide 25 mg PO QAM 02/26/18 12/09/19 History losartan 50 mg PO QAM 02/26/18 12/09/19 History omeprazole 20 mg PO QAM 02/26/18 12/09/19 History simvastatin 40 mg PO PM 02/26/18 12/09/19 History montelukast 10 mg tablet 10 mg PO QPM #90 tab 09/03/19 12/09/19 Rx albuterol sulfate 90 mcg/actuation 2 puff INHALATION Q6H PRN #18 gm 11/30/19 12/09/19 Rx aerosol inhaler levocetirizine 5 mg tablet 5 mg PO DAILY PRN #30 tab 11/30/19 12/09/19 Rx fluticasone propionate [Flonase] 1 spray INTRANASAL QAM 12/09/19 12/09/19 History umeclidinium-vilanterol [Anoro 1 inh INH QAM 12/09/19 12/09/19 History Ellipta] Past Med/Surg History Medical History (Updated 01/06/20 @ 20:24 by Antonio Smith DO) Chronic obstructive pulmonary disease GERD (gastroesophageal reflux disease) History of basal cell carcinoma back and forehead (was removed) Hyperlipidemia Hypertension Obesity Osteoarthritis Surgical History H/O colonoscopy H/O tubal ligation History of left cataract extraction History of repair of rotator cuff LEFT History of tooth extraction all teeth History of total hip arthroplasty Right TALYA: 03/28/18: SAB x 2 attempts (L3-L4 with 1 attempt at L4-L5) at [facility] Hx of right cataract extraction Family History Grandfather (Maternal) Family history of diabetes mellitus Aunt Family history of diabetes mellitus Brother Family history of diabetes mellitus Sister Family history of diabetes mellitus Father Family hx of colon cancer Social History Smoking Status: Former smoker Cigarettes Per Day: Quit 2015; Second Hand Exposure: No; Hx Alcohol Use: Yes Alcohol type: beer and wine Hx Substance Use: No Preferred Language: Portuguese Communication Ability: Effective 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 Beliefs That Will Affect Care: None marital status: Current Living Situation: Spouse Feels Safe at Home: Yes Assistive Devices: Denture - Upper, Denture - Lower and Glasses Review of Systems Review of Systems: All systems reviewed & are unremarkable except as noted in HPI & below Physical Exam Constitutional: WD/WN, vitals as above Eyes: PERRL, conjunctivae normal, anicteric sclerae ENMT: external ear and nose normal, oropharynx normal Neck: trachea midline, no thyromegaly Respiratory: normal respiratory effort Cardiovascular: RRR, no murmur, no edema Gastrointestinal (Abdomen): normal bowel sounds, soft, nontender, no hepatosplenomegaly Musculoskeletal: On physical examination of the left knee there is a trace effusion. There is near full range of motion and no evidence of instability. There is significant tenderness palpation along the medial and lateral joint lines and over the distal femoral condyles. Psychiatric: A+Ox3, euthymic affect Results & Data Results & Data ([facility]) Diagnostic Findings Radiographs of the left knee demonstrate advanced osteoarthritis with joint space narrowing osteophyte formation and [id number] articulation. PG Care Time/CCT Total # of Minutes Spent Total Time Spent with Patient: Total time spent is greater than 50% in coordination of care (as documented) at patient's floor/unit and/or counseling patient: Coding Level of Care Code None Diagnoses Osteoarthritis of left knee M17.12
[2020-01-11] MEDS ORDERED: LR 500ML BOLUS, THEN 15ML/HR IV SCH (06:00)
[2020-01-11] MEDS ORDERED: ACETAMINOPHEN 500 MG TAB PO SCH (06:00)
[2020-01-11] MEDS ORDERED: TRANEXAMIC ACID 1,000 MG **IV Intra-op IV SCH (06:00)
[2020-01-11] MEDS ORDERED: FAMOTIDINE 20 MG TAB PO SCH (06:00)
[2020-01-11] MEDS ORDERED: ROPIVACAINE 0.5% HCL/PF 150 MG, BUPIVACAINE 0.5% MPF 30 ML, EPINEPHrine 30MG/30ML (OR U... INSTIL SCH (06:00)
[2020-01-11] MEDS ORDERED: GABAPENTIN 300 MG CAP PO SCH (06:00)
[2020-01-11] MEDS ORDERED: LR 60ML/HR IV SCH (06:00)
[2020-01-11] MEDS ORDERED: TRANEXAMIC ACID 1,000 MG **IV Pre-op IV SCH (06:00)
[2020-01-11] MEDS ORDERED: ceFAZolin 2000MG 2,000 MG/15 ML SYR IV SCH (06:00)
[2020-01-11] MEDS ORDERED: dexAMETHasone 4 MG TAB PO SCH (06:00)
[2020-01-11] MEDS ORDERED: EPINEPHrine INJ 1 MG/ML AMP ONE (06:28)
[2020-01-11] MEDS ORDERED: DEXAMETHASONE SOD INJ 4 MG/ML VIAL ONE (06:28)
[2020-01-11] MEDS ORDERED: BUPIVACAINE 0.5 % 5 MG/1 ML PF 10ML VIAL ONE (06:28)
[2020-01-11] MEDS ORDERED: BUPIVACAINE 0.25% 30 ML VIAL ONE (06:29)
--- NOTE | 2020-01-11 06:36 | History & Physical Bridge Note ---
Date of Service January 11, 2020 History & Physical Bridge Note I have examined the patient, reviewed the History & Physical and in the interval since the performance of the History & Physical I have noted the following changes of clinical significance: no changes noted
[2020-01-11] MEDS ORDERED: fentaNYL citrate 100 MCG/2 ML VIAL ONE (06:48)
[2020-01-11] MEDS ORDERED: PROPOFOL IV EMULSION 10 MG/ML 20 ML VIAL IV ONE (06:48)
[2020-01-11] MEDS ORDERED: LIDOCAINE HCL 2% 2 ML VIAL/AMP(20MG/ML) INFIL ONE (06:48)
[2020-01-11] MEDS ORDERED: MIDAZOLAM HCL 1 MG/ML 2ML VIAL ONE ×2 (06:48→07:46)
[2020-01-11] MEDS ORDERED: ORTHO JOINT ANESTHETIC ONE (06:57)
--- NOTE | 2020-01-11 08:47 | Operative Report ---
PG Post Operative Report Pre & Post Diagnosis Operation Date: 01/11/20 07:15 Pre-Op Diagnosis: Left Knee Degenerative Joint Disease Post-Op Diagnosis: Left Knee Degenerative Joint Disease I identified the patient and participated in the time-out.: Yes Procedure Operation Date: 01/11/20 07:15 Actual Procedures p Left Total Knee Arthroplasty(Left) - Antonio Smith DO Surgeon Antonio Smith DO [employer] Antonio Castillo PAC Estimated Blood Loss 10 Findings Consistent with Post-Op Diagnosis Specimens Left femoral and tibial bone Complications none Disposition Disposition: Recovery Room Indications Niya is a pleasant 69-year-old female who is been dealing with chronic increasing left knee pain. X-rays and clinical examination have been diagnostic for advanced osteoarthritis of the left knee. After failing conservative treatment, she has elected to proceed with a left total knee arthroplasty. Description of Procedure Implants used: I used a Raulito Persona total knee arthroplasty system with a size 6 standard femur, E tibia, 29 patella, and a size 12 medial congruent polyethylene bearing. All components were cemented in place with Palacos G cement. Niya arrived [facility] for the above procedure. She was seen in the preoperative holding area and the operative extremity was identified and signed. She was given a preoperative antibiotic, TXA, a spinal anesthetic and an adductor nerve block. She was taken back to the operating room and laid on the table in supine position. She was given basic sedation. The operative knee was then prepped and draped in sterile fashion. A timeout was done, and the patient and the operative extremity was properly identified. A midline incision was made directly over the patella. Dissection was taken down to the extensor mechanism. A subvastus arthrotomy was used. The medial retinaculum was released and the fat pad was mostly excised. The knee was flexed and the ACL, PCL, and meniscus were removed. A drill was sent down the center of the femoral canal followed by an intramedullary laurence. Off that laurence a distal femoral cutting block was placed. 9 mm was resected off the distal femur at 5 of valgus. A posterior referencing AP sizing guide was then placed on the distal femur. The femur measured to be a size 6 standard. 2 drill holes were placed in 3 of external rotation. A 4-in-1 cutting block was then impacted into place. Anterior, posterior, and chamfer cuts were then made. The proximal tibia was then exposed. An external tibial alignment guide was placed. A tibial cut guide was then anchored in place and the proximal tibia was then resected. The posterior aspect of the knee was then opened up and any additional meniscus fragments and osteophytes were removed. The tibia measured to be a size E. The tibial plate was then placed in the appropriate rotation and the tibia was drilled and punched. Trial components were then placed. I used a size 12 medial congruent polyethyl oliverio insert. The knee was brought through a full range of motion and felt to be stable. The peg holes for the femoral component were then drilled. The patella was then everted and 9 mm was resected off the posterior aspect of the patella. The patella measured to be a size 29. 3 peg holes were then drilled. A trial patella was placed. The knee was once again brought through a full range of mo tion and felt to be stable. Trial components were then removed. The surrounding soft tissues were injected with 100 cc of an orthopedic pain control cocktail. All components were then cemented into place with Palacos G cement. The final polyethylene insert was then snapped into place. Once cement was dry the tourniquet was deflated. Hemostasis was obtained. A dilute betadyne lavage was then done for 3 minutes. The joint was then irrigated with normal saline solution. The subvastus arthrotomy was then closed with #1 Vicryl suture. The skin was closed with 2-0 Vicryl, 3-0V lock suture, and taryn. A Silverlon and a soft compressive dressing were placed. She was then transferred to a hospital bed and taken to the postanesthesia care unit in stable condition. She tolerated the procedure well. Antonio Castillo PA-C, was present for the entire procedure. He was critical for patient positioning, prepping, draping, retraction exposure, wound closure and application of sterile dressing. I attest to the content of the Intraoperative Record and any orders documented therein. Any exceptions are noted below.
[2020-01-11] MEDS ORDERED: ATROPINE SULFATE 0.1 MG/ML 10ML SYR IV PRN (09:29)
[2020-01-11] MEDS ORDERED: ePHEDrine sulfate 50 MG/ML AMP IV PRN (09:29)
--- NOTE | 2020-01-11 09:33 | Anesthesiology Progress Note ---
Date of Service January 11, 2020 Anesthesia Post Procedure Vital Signs Vital Signs: Temp Pulse Pulse Resp BP Pulse Ox 01/11/20 09:20 36.6 C 70 16 108/64 96 01/11/20 09:10 71 16 112/64 96 01/11/20 09:00 36.8 C 80 16 109/59 L 93 01/11/20 05:30 36.7 C 121 H 20 136/95 Transfer of Care Handoff Completed per policy Notes Mental Status: alert / awake / arousable Patient Amnestic to Procedure: Yes Nausea / Vomiting: adequately controlled Pain: adequately controlled Airway Patency, RR, SpO2: stable & adequate BP & HR: stable & adequate Hydration State: stable & adequate Neuraxial Anesthesia: was administered and sensory block is resolving Anesthetic Complications: no major complications apparent
--- NOTE | 2020-01-11 09:35 | XRay Report ---
XR knee LT 1 or 2V routine HISTORY: 69 years-old Female Surgical Post Op left knee total joint arthroplasty COMPARISON: None TECHNIQUE: 2 views of the left knee FINDINGS: Left knee total joint arthroplasty and patella resurfacing. Anterior midline skin taryn are noted a long with expected postsurgical soft tissue swelling and deep tissue air with surgical drainage rita ter. No acute fracture or expected opaque foreign body. Arterial calcifications. IMPRESSION: Left knee total joint arthroplasty and patella resurfacing with expected postoperative ch anges. ACT 112: Negative or not required by law. The above report was generated using voice recognition software. It may contain grammatical, syntax o r spelling errors. Electronically signed by: Vidal Torrez M.D. 01/11/2020 9:34 AM
[2020-01-11] MEDS ORDERED: METOCLOPRAMIDE HCL INJ 5 MG/ML 2 ML VIAL IV PRN (09:51)
[2020-01-11] MEDS ORDERED: bisacodyL 10 MG SUPP PR PRN (09:51)
[2020-01-11] MEDS ORDERED: ALBUTEROL HFA 8 GM INHALER INH PRN (09:51)
[2020-01-11] MEDS ORDERED: NALOXONE HCL 0.4 MG/1 ML VIAL/CARP IV PRN (09:51)
[2020-01-11] MEDS ORDERED: MAGNESIUM HYDROXIDE SUSP 30 ML UDC PO PRN (09:51)
[2020-01-11] MEDS ORDERED: SODIUM CHLORIDE 0.9% 1000ML 1,000 ML IV SCH (09:51)
[2020-01-11] MEDS ORDERED: ONDANSETRON INJ 2 MG/ML 2 ML VIAL IV PRN (09:51)
[2020-01-11] MEDS ORDERED: HYDROmorphone INJ 0.5 MG/0.5 ML SYR IV PRN (09:51)
[2020-01-11] MEDS ORDERED: ALBUTEROL 0.083% NEBU SOLN 3 ML VIAL INH PRN (11:00)
[2020-01-11] MEDS: ASPIRIN 81 MG ECTAB PO SCH ×2 (11:10→21:07)
[2020-01-11] MEDS: DOCUSATE SODIUM 100 MG CAP PO SCH ×2 (11:11→21:07)
[2020-01-11] MEDS: ADVANCED PROBIOTIC 1250 MG CAPSULE PO SCH (11:11)
[2020-01-11] MEDS: MULTIVITAMIN TAB PO SCH (11:11)
[2020-01-11] MEDS: hydroCHLOROthiazide 25 MG TAB PO SCH (11:11)
[2020-01-11] MEDS: LOSARTAN POTASSIUM 50 MG TAB PO SCH (11:11)
[2020-01-11] MEDS: KETOROLAC TROMETHAMINE 15 MG/ML VIAL IV SCH ×3 (11:14→23:32)
[2020-01-11] MEDS: GABAPENTIN 100 MG CAP PO SCH ×2 (13:39→21:07)
[2020-01-11] MEDS: ceFAZolin 2000MG 2,000 MG/15 ML SYR IV SCH ×2 (13:40→21:15)
[2020-01-11] MEDS: HYDROCODONE/ACETAMOPHEN 5/325MG TAB PO PRN ×2 (14:20→21:15)
[2020-01-11] MEDS ORDERED: SENNA 8.6 MG TAB PO SCH (21:00)
[2020-01-11] MEDS ORDERED: MONTELUKAST SODIUM 10 MG TABLET PO SCH (21:00)
[2020-01-11] MEDS ORDERED: SIMVASTATIN 40 MG TAB PO SCH (21:00)
[2020-01-12] MEDS: KETOROLAC TROMETHAMINE 15 MG/ML VIAL IV SCH (05:37)
--- NOTE | 2020-01-12 07:26 | Orthopedic Progress Note ---
Date of Service January 12, 2020 Assessment & Plan (1) Status post left knee replacement: Niya is recovering as expected up to this point. Her pain is well controlled. She may continue visiting with physical therapy for ambulatory assistance. She will continue aspirin for DVT prophylaxis. From an orthopedic standpoint, she is ready for discharge today. She will remain weightbearing as tolerated. She will follow-up in our office in 2 weeks for reevaluation and staple removal at that time. Admission and Anticipated Discharge Date Admission Date: January 11, 2020 Bety Núñez was seen and examined at bedside today with Dr. Smith. She states her pain has been well controlled at this point, however, she did not get a lot of sleep last night. She has been working with physical therapy for ambulatory assistance. She is looking forward to going home. She denies any fever, chills, sweats. She has no new complaints today. She is overall pleased with her progress. Review of Systems Constitutional: no fever, no chills and no problem reported Eyes: as per Subjective / HPI; no problem reported Ear, Nose, Mouth, Throat: as per Subjective / HPI; no problem reported Respiratory: as per Subjective / HPI; no problem reported Cardiovascular: no edema and no problem reported Gastrointestinal: no nausea, no vomiting and no problem reported Musculoskeletal: as per Subjective / HPI Integumentary: as per Subjective / HPI; no problem reported Neurologic: no tingling, no paresthesia and no problem reported Psychiatric: no problem reported Endocrine: as per Subjective / HPI Hematologic / Lymphatic: as per Subjective / HPI Allergy / Immunological: no problem reported Physical Exam Musculoskeletal: Patient was laying comfortably in bed upon arrival, in no acute distress. She is alert and oriented x3. She is able to plantarflex and dorsiflex her foot. Her overlying dressings appear clean and dry with no evidence of discharge. Neurovascularly intact. Results & Data ([facility]) Vital Signs (Past 12 Hours) Vital Signs Temp Pulse Resp BP BP Pulse Ox 01/12/20 04:18 36.7 C 68 15 123/69 95 01/11/20 22:50 36.4 C L 63 16 121/77 92 01/11/20 20:11 36.3 C L 76 18 120/81 93 PG Care Time/CCT Total # of Minutes Spent Total Time Spent with Patient: Total time spent is greater than 50% in coordination of care (as documented) at patient's floor/unit and/or counseling patient: Coding Level of Care Code None Diagnoses Status post left knee replacement Z96.652
[2020-01-12 07:28] LABS: Hematocrit (blood only) 33.3 % (37-47); Mean Corpuscular Hemoglobin 29.3 pg (25-34); Mean Corpuscular Volume 88.6 fL (80-100); Platelet Count 322 K/uL (130-400); RDW Coefficient of Variation 14.3 % (11.5-14.5); RDW Standard Deviation 46.9 fL (36.4-46.3); Red Blood Count 3.76 M/uL (4.2-5.4); White Blood Count 17.47 K/uL (4.8-10.8)
--- NOTE | 2020-01-12 07:38 | Discharge Summary ---
Date of Service January 12, 2020 Admission HPI Per Admitting Provider Niya is a pleasant 69-year-old female who has been dealing with chronic increasing left knee pain. X-rays and clinical examination have been diagnostic for advanced osteoarthritis of the left knee. After failing extensive conservative treatment, she has elected to proceed with a left total knee arthroplasty. Principal Diagnosis Left total knee replacement Discharge Data Allergies Allergy/AdvReac Type Severity Reaction Status Date / Time oxycodone [From OxyContin] Allergy Intermediate Hives Verified 01/11/20 05:34 Consultations 01/11/20 09:51 Consult Case Management - Discharge Planning Routine Procedures Performed Operation Date: 01/11/20 07:15 Actual Procedures p Left Total Knee Arthroplasty(Left) - Antonio Smith DO Ordered Studies 01/11/20 05:00 US - OR guided needle placemen Routine Hospital Course (1) Status post left knee replacement: On January 10, Niya presented to [facility] for left total knee arthroplasty. She was given a spinal anesthetic. The procedure was uncomplicated. She was then transferred to the general orthopedic floors. On postop day 1 patient's pain was well controlled. She did work with physical therapy for ambulatory assistance and range of motion exercises. She was discharged home. She will remain weightbearing as tolerated. She will continue aspirin for DVT prophylaxis. She will follow-up in our orthopedic office in 2 weeks for staple removal and reevaluation at that time. Total Time Total Time Spent Total Time Spent (In Minutes): 20 minutes Discharge Plan Discharge Items Patient Disposition: Home - Home Health Services Reason For Visit: Left Knee Degenerative Joint Disease Discharge Diagnosis: Left knee replacement Activity: As commented below Non-emergency contact: Surgeon Call non-emergency contact if: your wound has increased redness and your wound has increased drainage Follow-up/Referrals: Rafa Vargas MD [Primary Care Provider] - Diet: Regular Addtl Attending Provider Instructions: Activity and Therapy Recommendations: * If you are using [facility] then therapy will be provided at your home until they feel you have accomplished all of your goals. * If you are using [facility] then Physical Therapy will be provided until they feel you are ready to start Outpatient Physical Therapy. * If you are not using home therapy then Outpatient Physical Therapy should start about 3-5 days from your day of surgery. Therapy will last about 6-10 weeks * It is important not to put a pillow under your knee when you are relaxing or sleeping. It is just as important to make sure you are getting your knee perfectly straight as it is to regain your knee bend. * You were shown a series of exercises in the hospital. Do these exercises three times each day including the exercises you were shown in physical therapy. * Get up and walk several times each day. For the first four weeks, try not to stand or walk for more than one hour at a time. If you do stand or walk for more than one hour, you will not hurt anything, but your leg will likely swell. * As you feel comfortable, you may change from the walker or crutches to a cane and then to independent walking. Medications: * Narcotic You will likely be sent home from the hospital with a prescription for the narcotic pain medication that worked best throughout your stay. * Aspirin Most patients will be required to take Aspirin 81mg twice a day for 6 weeks after surgery. This is obtained [id number] and a prescription is not necessary. * Other medications may be prescribed for specific circumstances. If you have any questions, please call the office at . * Resume previous home medications unless otherwise instructed TEDs/Elastic Stockings: The white elastic stockings help limit swelling and prevent blood clots from forming in your legs.~ The more you wear them, the more they work. Wear them for six weeks. Dressing Care: Leave the Silverlon dressing in place for 7 days. After 7 days you may remove the dressing. If the incision is not draining then you may leave the taryn open to air. If there is a little bit of drainage or if the taryn are getting stuck on your clothing then cover the incision with a dry dressing. The taryn will be removed at your 2 week follow-up appointment. Showering: You may shower with the Silverlon dressing in place. Do not let the shower spray hit the dressing directly. Pat the Silverlon dressing dry. If the dressing becomes wet underneath, then simply remove the dressing. Keep the incision dry until you are 7 days out from the day of surgery. After 7 days you may remove the Silverlon dressing and shower with the taryn exposed. Let soapy water run over the taryn and pat them dry. Do not scrub or soak the incision. Things To Watch For: * Drainage from the incision site that occurs more than one week after your surgery. * Increased redness at the incision site. * Fever above 102 degrees Fahrenheit. * Unusual chest pain or shortness of breath. * Call [facility] at with any of the above problems Follow-Up Visit: Follow-up with Dr. Smith's PA (Antonio Castillo) 2-3 weeks after your day of surgery. He will remove your taryn and answer any questions. If you have any additional questions or concerns, Dr Smith is usually in the office at the same time and will be available An appointment was probably scheduled when you signed-up for surgery in the office. If you have any questions call Office Instructions: More detailed instructions as well as Frequently Asked Questions were provided in a folder by our office when you signed-up for surgery. Please review these instructions when you get home. If you have any further questions or concerns, please feel free to call the office at [phone] Pending Studies at Discharge: No Stand-Alone Forms: My [facility], Opioid Pain Management, Smoking Cessation Medications and DC Order Prescriptions: New aspirin 81 mg Tablet,Delayed Release (Dr/Ec) 81 mg PO BID 42 Days Qty: 84 RF: 0 tramadol 50 mg tablet 50 mg PO Q6H PRN (Reason: pain) Qty: 30 RF: 0 Continued montelukast [Singulair] 10 mg tablet 10 mg PO QPM Qty: 90 RF: 2 albuterol sulfate 90 mcg/actuation HFA aerosol inhaler 2 puff INHALATION Q6H PRN (Reason: Wheezing) Qty: 18 RF: 2 levocetirizine 5 mg tablet 5 mg PO DAILY PRN (Reason: allergy symptoms) Qty: 30 RF: 3 losartan 50 mg Tablet 50 mg PO QAM RF: 0 simvastatin 40 mg Tablet 40 mg PO PM RF: 0 omeprazole 20 mg Capsule,Delayed Release(Dr/Ec) 20 mg PO QAM RF: 0 hydrochlorothiazide 25 mg Tablet 25 mg PO QAM RF: 0 gabapentin 100 mg Capsule 100 mg PO TID RF: 0 Probiotic 3 billion cell Capsule 3,000 mmu cells PO QAM RF: 0 diphenhydramine-acetaminophen [Tylenol PM Extra Strength] 25-500 mg Tablet 2 tab PO HS PRN (Reason: Sleep) RF: 0 diclofenac sodium 75 mg Tablet,Delayed Release (Dr/Ec) 75 mg PO QAM RF: 0 albuterol sulfate 2.5 mg /3 mL (0.083 %) Solution For Nebulization 2.5 mg INHALATION QID PRN (Reason: Wheezing) RF: 0 Anoro Ellipta 62.5-25 mcg/actuation blister with device 1 inh INH QAM RF: 0 fluticasone propionate 50 mcg/actuation [place],Suspension 1 spray INTRANASAL QAM RF: 0 Discharge Orders: Discharge Order (Routine); Ordered 01/12/20 Ordered By: Antonio Somers/Other Patient Handouts: Total Knee Replacement Admission Data Admit Date/Time: 01/11/20 09:02 Attending Provider: Antonio Smith Admit Provider: Antonio Smith Primary Care Provider: Rafa Vargas
[2020-01-12] MEDS ORDERED: dexAMETHasone 4 MG TAB PO SCH (08:00)
--- NOTE | 2020-01-12 08:05 | Anesthesiology Progress Note ---
Date of Service January 12, 2020 Anesthesia Post Procedure Vital Signs Vital Signs: Temp Pulse Pulse Resp BP BP Pulse Ox 01/12/20 07:49 36.7 C 60 16 116/74 95 01/12/20 07:45 36.7 C 68 15 120/81 123/69 95 01/12/20 04:18 36.7 C 68 15 123/69 95 01/11/20 22:50 36.4 C L 63 16 121/77 92 01/11/20 20:11 36.3 C L 76 18 120/81 93 01/11/20 15:27 36.5 C 18 125/75 92 01/11/20 12:40 80 16 128/79 96 01/11/20 11:38 82 16 124/84 96 01/11/20 10:37 71 16 124/80 96 01/11/20 10:13 36.3 C L 68 16 128/84 94 01/11/20 09:40 36.4 C L 78 16 116/61 100 01/11/20 09:20 36.6 C 70 16 108/64 96 01/11/20 09:10 71 16 112/64 96 01/11/20 09:00 36.8 C 80 16 109/59 L 93 Notes Mental Status: alert / awake / arousable and participated in evaluation Patient Amnestic to Procedure: Yes Nausea / Vomiting: adequately controlled Pain: adequately controlled Airway Patency, RR, SpO2: stable & adequate BP & HR: stable & adequate Hydration State: stable & adequate Neuraxial Anesthesia: was administered and sensory block resolved Anesthetic Complications: no major complications apparent
[2020-01-12] MEDS: hydroCHLOROthiazide 25 MG TAB PO SCH (08:10)
[2020-01-12] MEDS: LOSARTAN POTASSIUM 50 MG TAB PO SCH (08:10)
[2020-01-12] MEDS: GABAPENTIN 100 MG CAP PO SCH (08:11)
[2020-01-12] MEDS: DOCUSATE SODIUM 100 MG CAP PO SCH (08:11)
[2020-01-12 08:12] LABS: BUN Creatinine Ratio 20.8 (10-20); Calcium 8.8 mg/dl (8.5-10.1); Creatinine Clr Calc Pharmacy 73.8 ml/min; Est GFR (African American) 94.3; Est GFR (Non-African American) 81.3; Potassium 2.8 mmol/L (3.5-5.1)
[2020-01-12] MEDS: ADVANCED PROBIOTIC 1250 MG CAPSULE PO SCH (08:12)
[2020-01-12] MEDS: ASPIRIN 81 MG ECTAB PO SCH (08:12)
[2020-01-12] MEDS: MULTIVITAMIN TAB PO SCH (08:12)
[2020-01-12] MEDS ORDERED: FLUTICASONE PROPIONATE NA SPR 16 GM BTL SCH (09:00)
[2020-01-12] MEDS ORDERED: UMECLIDINIUM/VILANTEROL 62.5/25MCG 7 PUFFS/INHALER INH SCH (09:00)
[2020-01-12] MEDS ORDERED: PANTOprazole 40 MG TAB PO SCH (09:00)
== END 2020-01-12 11:40 | disposition home health service (06) ==
LOC: ASU 05:15 → 3E 05:15

== ENCOUNTER 2021-08-11 06:30 | Observation (INO) ==
--- NOTE | 2021-07-24 21:23 | PAT Medication Instructions ---
Medication Instructions Date of Service July 24, 2021 Home Medications Medication Instructions Recorded montelukast 10 mg tablet 10 mg PO QPM #90 tab 09/03/19 (Singulair) albuterol sulfate 90 mcg/actuation 2 puff INHALATION Q6H PRN #18 gm 11/30/19 aerosol inhaler ondansetron HCl 4 mg tablet 4 mg PO Q8H PRN #30 tab 01/15/20 (Zofran) umeclidinium 62.5 mcg-vilanterol 1 inh INH QAM #3 inhaler 05/30/20 25 mcg/actuation powdr for inhalation (Anoro Ellipta) azithromycin 250 mg tablet See Rx Instructions PO .COMPLEX #6 07/12/20 tab ipratropium 0.5 mg-albuterol 3 mg 3 ml INHALATION Q8H PRN #180 ml 07/12/20 (2.5 mg base)/3 mL nebulization soln prednisone 20 mg tablet 20 mg PO .as directed #15 tab 07/12/20 diphenhydramine 25 mg-acetaminophen 500 mg tablet (Tylenol PM Extra Strength) 2 tab PO HS PRN gabapentin 100 mg capsule 100 mg PO TID hydrochlorothiazide 25 mg tablet 25 mg PO QAM lactobacillus combination no.4 3 billion cell capsule (Probiotic) 3,000 mmu cells PO QAM losartan 50 mg tablet 50 mg PO QAM omeprazole 20 mg capsule,delayed release 20 mg PO QAM montelukast 10 mg tablet (Singulair) 10 mg PO QPM albuterol sulfate 90 mcg/actuation aerosol inhaler 2 puff INHALATION Q6H PRN fluticasone propionate 50 mcg/actuation nasal spray,suspension 1 spray INTRANASAL QAM ondansetron HCl 4 mg tablet (Zofran) 4 mg PO Q8H PRN lovastatin 40 mg tablet 40 mg PO PM umeclidinium 62.5 mcg-vilanterol 25 mcg/actuation powdr for inhalation (Anoro Ellipta) 1 inh INH QAM azithromycin 250 mg tablet See Rx Instructions PO .COMPLEX ipratropium 0.5 mg-albuterol 3 mg (2.5 mg base)/3 mL nebulization soln 3 ml INH ALATION Q8H PRN prednisone 20 mg tablet 20 mg PO .as directed acetaminophen 325 mg tablet 325 mg PO QID PRN fluticasone furoate 200 mcg/actuation blister powder for inhalation (Arnuity Ellipta) 1 inh INHALATION DAILY guaifenesin 600 mg tablet, extended release 12 hr (Mucinex) 600 mg PO QAM levocetirizine 5 mg tablet 5 mg PO QAM Continue as directed azithromycin 250 mg tablet See Rx Instructions PO .COMPLEX prednisone 20 mg tablet 20 mg PO .as directed DO NOT take the morning of surgery hydrochlorothiazide 25 mg tablet 25 mg PO QAM lactobacillus combination no.4 3 billion cell capsule (Probiotic) 3,000 mmu cells PO QAM losartan 50 mg tablet 50 mg PO QAM guaifenesin 600 mg tablet, extended release 12 hr (Mucinex) 600 mg PO QAM levocetirizine 5 mg tablet 5 mg PO QAM Take morning of surgery With a small sip of water, OTHERWISE NOTHING TO EAT OR DRINK AFTER MIDNIGHT: gabapentin 100 mg capsule 100 mg PO TID omeprazole 20 mg capsule,delayed release 20 mg PO QAM albuterol sulfate 90 mcg/actuation aerosol inhaler 2 puff INHALATION Q6H PRN (use if needed; please bring rescue inhaler with you to hospital day of surgery if possible) fluticasone propionate 50 mcg/actuation nasal spray,suspension 1 spray INTRANASAL QAM ondansetron HCl 4 mg tablet (Zofran) 4 mg PO Q8H PRN (if needed) umeclidinium 62.5 mcg-vilanterol 25 mcg/actuation powdr for inhalation (Anoro Ellipta) 1 inh INH QAM ipratropium 0.5 mg-albuterol 3 mg (2.5 mg base)/3 mL nebulization soln 3 ml INHALATION Q8H PRN (if needed) acetaminophen 325 mg tablet 325 mg PO QID PRN (okay to take up to 4 hours prior to surgery if needed) fluticasone furoate 200 mcg/actuation blister powder for inhalation (Arnuity Ellipta) 1 inh INHALATION DAILY Take evening before surgery diphenhydramine 25 mg-acetaminophen 500 mg tablet (Tylenol PM Extra Strength) 2 tab PO HS PRN (if needed) gabapentin 100 mg capsule 100 mg PO TID montelukast 10 mg tablet (Singulair) 10 mg PO QPM albuterol sulfate 90 mcg/actuation aerosol inhaler 2 puff INHALATION Q6H PRN (if needed) ondansetron HCl 4 mg tablet (Zofran) 4 mg PO Q8H PRN (if needed) lovastatin 40 mg tablet 40 mg PO PM ipratropium 0.5 mg-albuterol 3 mg (2.5 mg base)/3 mL nebulization soln 3 ml INHALATION Q8H PRN (if needed) acetaminophen 325 mg tablet 325 mg PO QID PRN (if needed) Other Notes If you have any questions please call us at [phone] or [phone] or [phone] or [phone]
--- NOTE | 2021-07-26 09:07 | Anesthesiology Consultation ---
Date of Service July 26, 2021 Assessment & Plan (1) Encounter for pre-operative examination: Chart Review Chart Review: Acceptable Risk for Surgery (pending preop Covid testing results ) and Patient seen in Pre Admission Testing Per PAT appt on 07/26/21, patient denies any recent travel or large group activities. No known Covid positive exposures or Covid related symptoms. No known Covid infection in the past 90 days. Pt is vaccinated for Covid. Preop Covid testing scheduled 08/09/21 = will await results. Educated on importance of self quarantining, social distancing and wearing mask in public for the patient one week prior to surgery and after Covid testing done Last seen by PCP 02/21/21 (follows now with PCP for pulm issues) = seen for follow up on lung disease. COPD- much improved. Suspect asthma/COPD overlap. Continue current medications/inhalers. Nocturnal hypoxemia- continue oxygen 2lpm at night. Ground glass opacity on lung imaging- follow up CT scan next year Last seen by pulm 05/30/20= COPD with emphysema and chronic bronchitis- compliant with Anoro. Has not needed rescue inhaler for more than six months. Multiple pulmonary nodules. Unchanged since 2016. Repeat Chest CT September 2020. Seasonal allergies- continue meds. Follow up in six months (Pt now follows with Dinora LATIF in Family Practice for management of lung issues/COPD) Teaching & Discussion Pre-Anesthesia Teaching/Discussion Notes: Instructed NPO after midnight before surgery,except medications with 15 cc of water. Medication instructions provided according to the PAT guidelines. History Surgery Operation Date: 08/11/21 08:10 Proposed Procedures p Right Total Knee Arthroplasty - Antonio Smith DO Height/Weight Height: 5 ft 3 in Weight: 81.8 kg Allergies Allergy/AdvReac Type Severity Reaction Status Date / Time oxycodone [From OxyContin] Allergy Intermediate Hives Verified 07/21/21 11:29 Medications Home Medications Medication Instructions Recorded Confirmed Last Taken diphenhydramine 25 2 tab PO HS PRN 02/26/18 07/21/21 09/21/18 mg-acetaminophen 500 mg tablet (Tylenol PM Extra Strength) gabapentin 100 mg capsule 100 mg PO TID 02/26/18 07/21/21 01/10/20 20:00 hydrochlorothiazide 25 mg tablet 25 mg PO QAM 02/26/18 07/21/21 01/10/20 08:00 lactobacillus combination no.4 3 3,000 mmu cells PO QAM 02/26/18 07/21/21 01/10/20 08:00 billion cell capsule (Probiotic) losartan 50 mg tablet 50 mg PO QAM 02/26/18 07/21/21 01/10/20 08:00 omeprazole 20 mg capsule,delayed 20 mg PO QAM 02/26/18 07/21/21 01/11/20 04:15 release montelukast 10 mg tablet 10 mg PO QPM #90 tab 09/03/19 07/21/21 01/09/20 20:00 (Singulair) albuterol sulfate 90 mcg/actuation 2 puff INHALATION Q6H PRN #18 gm 11/30/19 07/21/21 01/11/20 04:15 aerosol inhaler fluticasone propionate 50 1 spray INTRANASAL QAM 12/09/19 07/21/21 01/10/20 07:30 mcg/actuation nasal spray,suspension ondansetron HCl 4 mg tablet 4 mg PO Q8H PRN #30 tab 01/15/20 07/21/21 Unknown (Zofran) lovastatin 40 mg tablet 40 mg PO PM 05/30/20 07/21/21 Unknown umeclidinium 62.5 mcg-vilanterol 1 inh INH QAM #3 inhaler 05/30/20 07/21/21 Unknown 25 mcg/actuation powdr for inhalation (Anoro Ellipta) azithromycin 250 mg tablet See Rx Instructions PO .COMPLEX #6 07/12/20 07/21/21 Unknown tab ipratropium 0.5 mg-albuterol 3 mg 3 ml INHALATION Q8H PRN #180 ml 07/12/20 07/21/21 Unknown (2.5 mg base)/3 mL nebulization soln prednisone 20 mg tablet 20 mg PO .as directed #15 tab 07/12/20 07/21/21 Unknown acetaminophen 325 mg tablet 325 mg PO QID PRN 07/21/21 07/21/21 Unknown fluticasone furoate 200 1 inh INHALATION DAILY 07/21/21 07/21/21 Unknown mcg/actuation blister powder for inhalation (Arnuity Ellipta) guaifenesin 600 mg tablet, 600 mg PO QAM 07/21/21 07/21/21 Unknown extended release 12 hr (Mucinex) levocetirizine 5 mg tablet 5 mg PO QAM 07/21/21 07/21/21 Unknown Past Medical History Medical History (Updated 07/26/21 @ 09:40 by JOE HuntC) Chronic obstructive pulmonary disease - Well controlled per pt - Did finish recent Z pack and prednisone (will finish 07/27/21)- questionable COPD exacerbation- pt feels secondary to allergies - wheezing improved -Follows with Dinora Zelaya (PCP) for lung issues GERD (gastroesophageal reflux disease) Well controlled and stable with medication History of basal cell carcinoma back and forehead (was removed) Hyperlipidemia Hypertension Obesity On home oxygen therapy 2 LPM at Osteoarthritis Exercise / Class Metabolic Activity III < 4 Walking/Shop/Light housework (no chest pain or SOB with flat surface ambulation ) Past Family History Family History Grandfather (Maternal) Family history of diabetes mellitus Aunt Family history of diabetes mellitus Brother Family history of diabetes mellitus Sister Family history of diabetes mellitus Father Family hx of colon cancer Past Surgical History Surgical History H/O colonoscopy H/O tubal ligation History of left cataract extraction History of repair of rotator cuff LEFT History of tooth extraction all teeth History of total hip arthroplasty Right TALYA: 03/28/18: SAB x 2 attempts (L3-L4 with 1 attempt at L4-L5) at [facility] Hx of right cataract extraction Status post left knee replacement (~12/2019) Left TKA (01/11/20): SAB at L3/4 (x1 attempt) + PNB at [facility]. No issues per post-op anesthesia progress note. Past Anesthesia History No Hx of Anesthesia Complications and No Family Hx of Anesthesia Complications History of PONV No Hx of PONV, No Hx of Motion Sickness and Other (Did have syncope and dizziness post op day #1 from left TKA ) Social History Smoking Status: Former smoker tobacco type: cigarettes Smoking cigarettes per day: Quit 2016 Do You Dip or Chew Tobacco: No Smoking End Date: 6 yrs ago Hx Alcohol Use: Yes Alcohol type: beer and wine alcohol intake frequency: holidays/special occasions only Hx Substance Use: No substance use type: does not use Review of Systems Hx of seizures - 1 episode- after 2nd childbirth (50 years ago)- per patient- secondary to electrolyte issues. No seizure medication needed- no issues since that time. Had normal EEG per patient Patient denies chest pain, shortness of breath at rest, cough, wheezing, palpitations. No hx of stroke, SD, apnea/snoring. No hx of blood clots or blood transfusions Physical Exam Vital Signs VITALS BP 143/76 P 70 TEMP 97.6 SP02 94% RESP 16 Constitutional no acute distress ENMT Mouth: no TMJ clicking Thyromental Distance: > or= 3.5 Finger Breadths (3.5) Mallampati Class: II Full dentures on top and bottom Neck + limited neck extension (mild ) Respiratory normal respiratory effort; no respiratory distress Auscultation: + wheezes (mild wheezing throughout lungs- otherwise CTA ) Cardiovascular Rate/Rhythm: regular rate and regular rhythm Heart Sounds: no murmur Vessels: no carotid bruit Musculoskeletal Spine: + pain with cervical ROM (mild ) Extremities: extremities normal to inspection Psychiatric Orientation: alert Lab Results Anesthesia Preop Results Results Anesthesia Widget: WBC 11.14 K/uL (4.8-10.8) H 07/26/21 Hgb 12.6 g/dL (12.0-16.0) 07/26/21 Hct 37.3 % (37-47) 07/26/21 Plt 401 K/uL (130-400) H 07/26/21 Na 134 mmol/L (136-145) L 07/26/21 K 3.3 mmol/L (3.5-5.1) L 07/26/21 Cl 96 mmol/L (98-107) L 07/26/21 CO2 28 mmol/L (21-32) 07/26/21 BUN 14 mg/dl (6-23) 07/26/21 Creat 0.65 mg/dl (0.6-1.2) 07/26/21 Glucose Level 95 mg/dl (70-99(Fasting)) 07/26/21 PT 10.9 Seconds (9.0-12.0) 07/26/21 PTT 31.5 Seconds (21.0-31.0) H 07/26/21 INR 1.0 (0.9-1.1) 07/26/21 Blood Type O Positive 07/26/21 Antibody Screen POSITIVE A 07/26/21 Testing Laboratory Results Blood bank informed for positive antibodies; BB aware- no further testing needed from PAT standpoint Electrocardiogram Date: 07/26/21 Findings: + NSR @ (68bpm ) Normal EKG per cardio Chest X-Ray Date: 07/26/21 FINDINGS: PA and lateral chest radiographs are compared to study dated 09/10/2018. Correlation is made with chest CT dated 10/13/2018. The heart is top normal for projection noting atherosclerotic calcification of the thoracic aorta. The pulmonary vasculature is noncongested. Emphysema and chronic interstitial thickening is similar to previous. Scarring/atelectasis is noted at the lung bases. No airspace consolidation or pleural effusion is identified There is no pneumothorax. The skeletal structures are osteopenic. The bony thorax appears intact. IMPRESSION: Emphysematous change with no active disease in the chest. Echocardiogram Date: 12/24/16 EF: 60-65% LV Function: normal RWMA: + none Other Findings: no LVH LV is normal in size. No thrombus. Mild mitral annular calcification Other Testing Chest CT 09/15/20= Stable right lower lob ground class nodule. Follow up CT recommended in two years. Emphysema.
[~2021-08-11 06:30] MED LIST changes: -CEFAZOLIN 2000MG 2,000 MG/15 ML SYR IV SCH; +GABAPENTIN 300 MG CAP PO SCH; -GABAPENTIN 300 MG PO SCH; +Ketorolac (*for OR use only*) 30 MG, dexAMETHasone 4 MG, KETAMINE HCL (**OR use only) 1... INFIL SCH; -LACTATED RINGER'S 1,000 ML IV SCH; +LR 500ML BOLUS IV SCH; -LR 500ML BOLUS, THEN 15ML/HR IV SCH; +LR 60ML/HR IV SCH; -ROPIVACAINE 0.5% HCL/PF 150 MG, BUPIVACAINE 0.5% MPF 30 ML, EPINEPHrine 30MG/30ML (OR U... INFIL SCH; +TRANEXAMIC ACID 1,000 MG **IV Intra-op IV SCH; +ceFAZolin 2000MG 2,000 MG/15 ML SYR IV SCH; +dexAMETHasone 4 MG TAB PO SCH
[2021-08-11] MEDS ORDERED: MIDAZOLAM HCL 1 MG/ML 2ML VIAL ONE (07:27)
[2021-08-11] MEDS ORDERED: fentaNYL citrate 100 MCG/2 ML VIAL ONE (07:27)
--- NOTE | 2021-08-11 08:00 | History & Physical Bridge Note ---
Date of Service August 11, 2021 History & Physical Bridge Note I have examined the patient, reviewed the History & Physical and in the interval since the performance of the History & Physical I have noted the following changes of clinical significance: no changes noted
[2021-08-11] MEDS ORDERED: BUPIVACAINE 0.5 % 5 MG/1 ML PF 10ML VIAL ONE (08:04)
[2021-08-11] MEDS ORDERED: ROPIVACAINE 0.5% 5 MG/ML 30 ML VIAL ONE (08:04)
[2021-08-11] MEDS ORDERED: ORTHO JOINT ANESTHETIC ONE (08:26)
[2021-08-11] MEDS ORDERED: ONDANSETRON INJ 2 MG/ML 2 ML VIAL IV PRN ×2 (09:07→11:34)
[2021-08-11] MEDS ORDERED: ATROPINE SULFATE 0.1 MG/ML 10ML SYR IV PRN (09:07)
[2021-08-11] MEDS ORDERED: ePHEDrine sulfate 50 MG/ML AMP IV PRN (09:07)
[2021-08-11] MEDS ORDERED: fentaNYL citrate 100 MCG/2 ML VIAL IV PRN (09:07)
[2021-08-11] MEDS ORDERED: ONDANSETRON INJ 2 MG/ML 2 ML VIAL ONE (09:20)
[2021-08-11] MEDS ORDERED: PROPOFOL IV EMULSION 10 MG/ML 20 ML VIAL IV ONE (09:20)
[2021-08-11] MEDS ORDERED: LIDOCAINE 2% 2 ML VIAL/AMP(20MG/ML) INFIL ONE (09:20)
--- NOTE | 2021-08-11 10:01 | Operative Report ---
PG Post Operative Report Pre & Post Diagnosis Operation Date: 08/11/21 09:20 Pre-Op Diagnosis: Right Knee Osteoarthritis Post-Op Diagnosis: Right Knee Osteoarthritis I identified the patient and participated in the time-out.: Yes Procedure Operation Date: 08/11/21 09:20 Actual Procedures p Right Total Knee Arthroplasty(Right) - Antonio Smith DO Surgeon Antonio Smith DO Mounter Antonio Castillo PAC Estimated Blood Loss 10 Findings Consistent with Post-Op Diagnosis Specimens Right femoral and tibial bone Complications none Disposition Disposition: Recovery Room Indications Niya is a pleasant 71-year-old female who is been dealing with chronic increasing right knee pain. X-rays and clinical examination were diagnostic for advanced arthritis of the right knee. After failing conservative treatment, she elected proceed with a right total knee arthroplasty. Description of Procedure Implants used: I used a Raulito Persona total knee arthroplasty system with a size 6 standard femur, D tibia, 31 oval patella, and a size 12 medial congruent polyethylene bearing. All components were cemented in place with Biomet cement. Niya arrived [facility] for the above procedure. She was seen in the preoperative holding area and the operative extremity was identified and signed. She was given a preoperative antibiotic, TXA, a spinal anesthetic and an adductor nerve block. She was taken back to the operating room and laid on the table in supine position. She was given basic sedation. The operative knee was then prepped and draped in sterile fashion. A timeout was done, and the patient and the operative extremity was properly identified. A midline incision was made directly over the patella. Dissection was taken down to the extensor mechanism. A subvastus arthrotomy was used. The medial retinaculum was released and the fat pad was mostly excised. The knee was flexed and the ACL, PCL, and meniscus were removed. A drill was sent down the center of the femoral canal followed by an intramedullary laurence. Off that laurence a distal femoral cutting block was placed. 9 mm was resected off the distal femur at 5 of valgus. A posterior referencing AP sizing guide was then placed on the distal femur. The femur measured to be a size 6. 2 drill holes were placed in 3 of external rotation. A 4-in-1 cutting block was then impacted into place. Anterior, posterior, and chamfer cuts were then made. The proximal tibia was then exposed. An external tibial alignment guide was placed. A tibial cut guide was then anchored in place and the proximal tibia was then resected. The posterior aspect of the knee was then opened up and any additional meniscus fragments and osteophytes were removed. The tibia measured to be a size D. The tibial plate was then placed in the appropriate rotation and the tibia was drilled and punched. Trial components were then placed. I used a size 12 medial congruent polyethylene insert. The knee was brought through a full range of motion and felt to be stable. The peg holes for the femoral component were then drilled. The patella was then everted and 9 mm was resected off the posterior aspect of the patella. The patella measured to be a size 31 oval. 3 peg holes were then drilled. A trial patella was placed. The knee was once again brought through a full range of motion and felt to be stable. Trial components were then removed. The surrounding soft tissues were injected with 100 cc of an orthopedic pain control cocktail. All components were then cemented into place with Biomet cement. The final polyethylene insert was then snapped into place. Once cement was dry the tourniquet was deflated. Hemostasis was obtained. A dilute betadyne lavage was then done for 3 minutes. The joint was then irrigated with normal saline solution. The subvastus arthrotomy was then closed with #1 Vicryl suture. The skin was closed with 2-0 Vicryl, 3-0V lock suture, and taryn. A soft compressive dressing was placed. She was then transferred to a hospital bed and taken to the postanesthesia care unit in stable condition. She tolerated the procedure well. Antonio Castillo PA-C, was present for the entire procedure. He was critical for patient positioning, prepping, draping, retraction exposure, wound closure and application of sterile dressing. I attest to the content of the Intraoperative Record and any orders documented therein. Any exceptions are noted below.
--- NOTE | 2021-08-11 10:53 | XRay Report ---
XR knee RT 1 or 2V routine CLINICAL HISTORY: Postoperative evaluation. COMPARISON: Right knee radiographs February 28, 2021. FINDINGS: Alignment of the total right knee arthroplasty is anatomic. There is no periprosthetic fra cture or unexpected radiopaque foreign body. There are skin taryn. IMPRESSION: Expected findings following total right knee arthroplasty. ACT 112: Negative or not required by law. Electronically signed by: Rolando Higgins M.D. 08/11/2021 10:51 AM
--- NOTE | 2021-08-11 11:25 | Anesthesiology Progress Note ---
Date of Service August 11, 2021 Anesthesia Post Procedure Vital Signs Vital Signs: Temp Pulse Pulse Resp BP Pulse Ox 08/11/21 11:10 61 12 116/76 97 08/11/21 11:00 66 16 115/66 96 08/11/21 10:50 61 10 L 118/60 99 08/11/21 10:40 70 13 105/85 92 08/11/21 10:30 97.7 F 79 13 118/60 96 08/11/21 07:04 98.1 F 95 H 20 139/77 95 Transfer of Care Handoff Completed per policy Notes Mental Status: alert / awake / arousable and participated in evaluation Patient Amnestic to Procedure: Yes Nausea / Vomiting: adequately controlled Pain: adequately controlled Airway Patency, RR, SpO2: stable & adequate BP & HR: stable & adequate Hydration State: stable & adequate Neuraxial Anesthesia: was administered and sensory block is resolving Anesthetic Complications: no major complications apparent and Pt Satisfied with anesthetic care
[2021-08-11] MEDS ORDERED: oxyCODONE HCL IR 5 MG TAB (IMMEDIATE RELEASE) PO PRN (11:34)
[2021-08-11] MEDS ORDERED: ALBUT/IPRATROP 3MG/0.5MG NEB 3 ML VIAL INH PRN (11:34)
[2021-08-11] MEDS ORDERED: diphenhydrAMINE 50 MG/ML VIAL IV PRN (11:34)
[2021-08-11] MEDS ORDERED: SODIUM CHLORIDE 0.9% 1000ML 1,000 ML IV SCH (11:34)
[2021-08-11] MEDS ORDERED: MAGNESIUM HYDROXIDE SUSP 30 ML UDC PO PRN (11:34)
[2021-08-11] MEDS ORDERED: METOCLOPRAMIDE HCL INJ 5 MG/ML 2 ML VIAL IV PRN (11:34)
[2021-08-11] MEDS ORDERED: ALBUTEROL HFA 8 GM INHALER INH PRN (11:34)
[2021-08-11] MEDS ORDERED: predniSONE 20 MG TAB PO SCH (11:34)
[2021-08-11] MEDS ORDERED: bisacodyL 10 MG SUPP PR PRN (11:34)
[2021-08-11] MEDS ORDERED: NALOXONE HCL 0.4 MG/1 ML VIAL/CARP IV PRN (11:34)
[2021-08-11] MEDS ORDERED: HYDROmorphone INJ 0.5 MG/0.5 ML SYR IV PRN (11:34)
[2021-08-11] MEDS ORDERED: HYDROCODONE/ACETAMOPHEN 5/325MG TAB PO PRN (13:28)
[2021-08-11] MEDS ORDERED: diphenhydrAMINE Capsule 25 MG CAP PO PRN (13:48)
[2021-08-11] MEDS ORDERED: ACETAMINOPHEN 500 MG TAB PO PRN (13:50)
[2021-08-11] MEDS ORDERED: ONDANSETRON 4 MG OD TAB PO PRN (13:55)
[2021-08-11] MEDS ORDERED: ACETAMINOPHEN 500 MG TAB PO SCH (14:00)
[2021-08-11] MEDS: GABAPENTIN 100 MG CAP PO SCH ×2 (15:01→19:55)
[2021-08-11] MEDS: KETOROLAC TROMETHAMINE 15 MG/ML VIAL IV SCH ×2 (15:01→19:17)
[2021-08-11] MEDS: ceFAZolin 2000MG 2,000 MG/15 ML SYR IV SCH (16:48)
[2021-08-11] MEDS: ASPIRIN 81 MG ECTAB PO SCH (19:55)
[2021-08-11] MEDS: DOCUSATE SODIUM 100 MG CAP PO SCH (19:56)
[2021-08-11] MEDS ORDERED: LOVASTATIN 20 MG TAB PO SCH (21:00)
[2021-08-11] MEDS ORDERED: SENNA 8.6 MG TAB PO SCH (21:00)
[2021-08-12] MEDS: ceFAZolin 2000MG 2,000 MG/15 ML SYR IV SCH (00:25)
[2021-08-12] MEDS: KETOROLAC TROMETHAMINE 15 MG/ML VIAL IV SCH ×2 (02:10→09:40)
--- NOTE | 2021-08-12 07:23 | Orthopedic Progress Note ---
Date of Service August 12, 2021 Assessment & Plan (1) Status post right knee replacement: Overall she is doing very well. She is having much pain in the right knee. She will be seen by physical therapy today for ambulation and range of motion exercises. The dressing can be changed after physical therapy. She is on aspirin for DVT prophylaxis. She can be discharged home later today. She will follow-up with orthopedics in 2 weeks. Bety Núñez was seen and examined at bedside this morning. Overall she is doing very well. She is having much pain in the right knee. She has been up and ambulating to the bathroom. She has no complaints.. Review of Systems All systems reviewed & are unremarkable except as noted in HPI & below. Physical Exam On physical examination of the right knee, the dressing is clean and dry. Her leg lengths are equal. She has active dorsiflexion plantarflexion of the right ankle.. Results & Data Results & Data Laboratory Results . Diagnostic Findings Postoperative x-rays of the right knee show the prosthesis to be in anatomic alignment without any evidence of fracture, desiccation, or loosening. PG Care Time/CCT Total # of Minutes Spent Total Time Spent with Patient: Total time spent is greater than 50% in coordination of care (as documented) at patient's floor/unit and/or counseling patient: Coding Level of Care Code 77011 Post Operative Follow-Up Diagnoses Status post right knee replacement Z96.651
--- NOTE | 2021-08-12 07:25 | Discharge Summary ---
Date of Service August 12, 2021 Principal Diagnosis Same as "Discharge Diagnosis" noted below under Discharge Instructions. Discharge Exam On physical examination of the right knee, the dressing is clean and dry. Her leg lengths are equal. She has active dorsiflexion plantarflexion of the right ankle.. Discharge Data Procedures Performed Operation Date: 08/11/21 09:20 Actual Procedures p Right Total Knee Arthroplasty(Right) - Antonio Smith DO Ordered Studies 08/11/21 05:00 US - OR guided needle placemen Routine Hospital Course (1) Status post right knee replacement: On August 11, 2021 Niya arrived at [facility] and underwent a right knee replaced without complication. She had a spinal anesthetic. Postoperatively she was started on aspirin for DVT prophylaxis and transferred to the general floors. Her hospital course was uneventful. On postop day #1, her vital signs are stable and her pain was well controlled. She was able to participate well with physical therapy doing ambulation and range of motion exercises. She was then discharged home. She will follow-up with orthopedics in 2 weeks. PG Care Time/CCT Total # of Minutes Spent Total Time Spent with Patient: Total time spent is greater than 50% in coordination of care (as documented) at patient's floor/unit and/or counseling patient: Discharge Plan Discharge Items Patient Disposition: Home - Home Health Services Reason For Visit: DJD Right Knee Discharge Diagnosis: Right knee replacement Activity: Per Instructions section Non-emergency contact: Surgeon Call non-emergency contact if: your wound has increased redness and your wound has increased drainage Follow-up/Referrals: Rafa Vargas MD [Primary Care Provider] - Diet: Regular Addtl Attending Provider Instructions: Activity and Therapy Recommendations: * If you are using [facility] then therapy will be provided at your home until they feel you have accomplished all of your goals. * If you are using [facility] then Physical Therapy will be provided until they feel you are ready to start Outpatient Physical Therapy. * If you are not using home therapy then Outpatient Physical Therapy should start about 3-5 days from your day of surgery. Therapy will last about 6-10 weeks * It is important not to put a pillow under your knee when you are relaxing or sleeping. It is just as important to make sure you are getting your knee perfectly straight as it is to regain your knee bend. * You were shown a series of exercises in the hospital. Do these exercises three times each day including the exercises you were shown in physical therapy. * Get up and walk several times each day. For the first four weeks, try not to stand or walk for more than one hour at a time. If you do stand or walk for more than one hour, you will not hurt anything, but your leg will likely swell. * As you feel comfortable, you may change from the walker or crutches to a cane and then to independent walking. Medications: * Narcotic You will likely be sent home from the hospital with a prescription for the narcotic pain medication that worked best throughout your stay. * Aspirin Most patients will be required to take Aspirin 81mg twice a day for 6 weeks after surgery. This is obtained [id number] and a prescription is not necessary. * Other medications may be prescribed for specific circumstances. If you have any questions, please call the office at . * Resume previous home medications unless otherwise instructed TEDs/Elastic Stockings: The white elastic stockings help limit swelling and prevent blood clots from forming in your legs.~ The more you wear them, the more they work. Wear them for six weeks. Dressing Care: The dressing can be changed after physical therapy on postop day #1. Daily dry dressing changes for a few days, especially if the incision is still draining some. If the incision is not draining then you may leave the taryn open to air. If there is a little bit of drainage or if the taryn are getting stuck on your clothing then cover the incision with a dry dressing. The taryn will be removed at your 2 week follow-up appointment. Showering: You may shower 5 days from the day of surgery as long as the incision is no longer draining. You may shower with the taryn exposed. Let soapy water run over the taryn and pat them dry. Do not scrub or soak the incision. Things To Watch For: * Drainage from the incision site that occurs more than one week after your surgery. * Increased redness at the incision site. * Fever above 102 degrees Fahrenheit. * Unusual chest pain or shortness of breath. * Call [facility] at with any of the above problems Follow-Up Visit: Follow-up with Dr. Smith's PA (Antonio Castillo) 2-3 weeks after your day of surgery. He will remove your taryn and answer any questions. If you have any additional questions or concerns, Dr Smith is usually in the office at the same time and will be available An appointment was probably scheduled when you signed-up for surgery in the office. If you have any questions call Office Instructions: More detailed instructions as well as Frequently Asked Questions were provided in a folder by our office when you signed-up for surgery. Please review these instructions when you get home. If you have any further questions or concerns, please feel free to call the office at [phone] Pending Studies at Discharge: No Stand-Alone Forms: My [employer], Smoking Cessation Medications and DC Order Prescriptions: New tramadol 50 mg tablet 50 mg PO Q6H PRN (Reason: pain) Qty: 30 RF: 0 aspirin 81 mg Tablet,Delayed Release (Dr/Ec) 81 mg PO BID 42 Days Qty: 0 RF: 0 Continued ipratropium-albuterol 0.5 mg-3 mg(2.5 mg base)/3 mL solution for nebulization 3 ml inhalation Q8H PRN (Reason: shortness of breath or wheezing) Qty: 180 RF: 2 azithromycin 250 mg tablet See Rx Instructions PO .COMPLEX Qty: 6 RF: 0 prednisone 20 mg tablet 20 mg PO .as directed Qty: 15 RF: 0 albuterol sulfate 90 mcg/actuation HFA aerosol inhaler 2 puff INHALATION Q6H PRN (Reason: Wheezing) Qty: 18 RF: 2 lovastatin 40 mg tablet 40 mg PO PM RF: 0 Anoro Ellipta 62.5-25 mcg/actuation blister with device 1 inh INH QAM Qty: 3 RF: 1 losartan 50 mg Tablet 50 mg PO QAM RF: 0 omeprazole 20 mg Capsule,Delayed Release(Dr/Ec) 20 mg PO QAM RF: 0 hydrochlorothiazide 25 mg Tablet 25 mg PO QAM RF: 0 gabapentin 100 mg Capsule 100 mg PO TID RF: 0 Probiotic 3 billion cell Capsule 3,000 mmu cells PO QAM RF: 0 diphenhydramine-acetaminophen [Tylenol PM Extra Strength] 25-500 mg Tablet 2 tab PO HS PRN (Reason: Sleep) RF: 0 acetaminophen 325 mg Tablet 325 mg PO QID PRN (Reason: Pain) RF: 0 Arnuity Ellipta 200 mcg/actuation Blister With Device 1 inh INHALATION DAILY RF: 0 levocetirizine 5 mg tablet 5 mg PO QAM RF: 0 guaifenesin [Mucinex] 600 mg tablet extended release 12hr 600 mg PO QAM RF: 0 ondansetron HCl 4 mg tablet 4 mg PO QPM RF: 0 montelukast [Singulair] 10 mg tablet 10 mg PO QAM RF: 0 Discharge Orders: Discharge Order (Routine); Ordered 08/12/21 Ordered By: Antonio Smith Admission Data Admit Date/Time: 08/11/21 10:30 Attending Provider: Antonio Smith Admit Provider: Antonio Smith Primary Care Provider: Rafa Vargas
[2021-08-12] MEDS ORDERED: FLUTICASONE FUROATE 200MCG 14 PUFFS/INHALER INH SCH (09:00)
[2021-08-12] MEDS ORDERED: CETIRIZINE HCL 10 MG TABLET PO SCH (09:00)
[2021-08-12] MEDS ORDERED: PANTOprazole 40 MG TAB PO SCH (09:00)
[2021-08-12] MEDS ORDERED: MULTIVITAMIN TAB PO SCH (09:00)
[2021-08-12] MEDS ORDERED: guaiFENesin 600 MG TABCR PO SCH (09:00)
[2021-08-12] MEDS ORDERED: UMECLIDINIUM/VILANTEROL 62.5/25MCG 7 PUFFS/INHALER INH SCH (09:00)
[2021-08-12] MEDS ORDERED: MONTELUKAST SODIUM 10 MG TABLET PO SCH (09:00)
[2021-08-12] MEDS ORDERED: LOSARTAN POTASSIUM 50 MG TAB PO SCH (09:00)
[2021-08-12] MEDS ORDERED: hydroCHLOROthiazide 25 MG TAB PO SCH (09:00)
[2021-08-12] MEDS: GABAPENTIN 100 MG CAP PO SCH (09:37)
[2021-08-12] MEDS: DOCUSATE SODIUM 100 MG CAP PO SCH (09:40)
[2021-08-12] MEDS: ASPIRIN 81 MG ECTAB PO SCH (09:40)
== END 2021-08-12 13:32 | disposition home health service (06) ==
LOC: PACUINP 06:30 → ASU 06:30 → 3E 13:37

== ENCOUNTER 2021-08-12 22:37 | Observation (INO) ==
[2021-08-12] MEDS ORDERED: ONDANSETRON INJ 2 MG/ML 2 ML VIAL IV STA (22:48)
--- NOTE | 2021-08-12 22:56 | Emergency Department Note ---
History of Present Illness General Chief complaint: Syncope Time Seen by Provider: 08/12/21 22:43 History of Present Illness Maximum Pain Intensity: 6 This 71-year-old that was discharged this morning for a knee replacement presents to the ER complaining of nausea vomiting syncope not feeling well and an episode of unresponsiveness tonight Location: Generalized Quality: weak and nauseous Severity: Moderate Duration: Tonight Timing: Tonight Context: Patient was concerned and called EMS Modifying factors: better with rest; worse with activity Patient states she does not feel well. She is is quite nauseous her head hurts. Patient passed out at home per and was unresponsive for EMS for about a minute. Patient slow to answer questions. Patient was discharged this morning for a knee replacement. No complications with the knee replacement. Patient denies chest pain, dyspnea, abdominal pain, localized weakness, loss of vision. Home Medications Medication Instructions Recorded Confirmed Type diphenhydramine 25 2 tab PO HS PRN 02/26/18 08/12/21 History mg-acetaminophen 500 mg tablet (Tylenol PM Extra Strength) gabapentin 100 mg capsule 100 mg PO TID 02/26/18 08/12/21 History hydrochlorothiazide 25 mg tablet 25 mg PO QAM 02/26/18 08/12/21 History lactobacillus combination no.4 3 3,000 mmu cells PO QAM 02/26/18 08/12/21 History billion cell capsule (Probiotic) losartan 50 mg tablet 50 mg PO QAM 02/26/18 08/12/21 History omeprazole 20 mg capsule,delayed 20 mg PO QAM 02/26/18 08/12/21 History release albuterol sulfate 90 mcg/actuation 2 puff INHALATION Q6H PRN #18 gm 11/30/19 08/12/21 Rx aerosol inhaler lovastatin 40 mg tablet 40 mg PO PM 05/30/20 08/12/21 History umeclidinium 62.5 mcg-vilanterol 1 inh INH QAM #3 inhaler 05/30/20 08/12/21 Rx 25 mcg/actuation powdr for inhalation (Anoro Ellipta) ipratropium 0.5 mg-albuterol 3 mg 3 ml INHALATION Q8H PRN #180 ml 07/12/20 08/12/21 Rx (2.5 mg base)/3 mL nebulization soln acetaminophen 325 mg tablet 325 mg PO QID PRN 07/21/21 08/12/21 History fluticasone furoate 200 1 inh INHALATION DAILY 07/21/21 08/12/21 History mcg/actuation blister powder for inhalation (Arnuity Ellipta) guaifenesin 600 mg tablet, 600 mg PO QAM 07/21/21 08/12/21 History extended release 12 hr (Mucinex) levocetirizine 5 mg tablet 5 mg PO QAM 07/21/21 08/12/21 History montelukast 10 mg tablet 10 mg PO QAM 08/08/21 08/12/21 History (Singulair) ondansetron HCl 4 mg tablet 4 mg PO QPM 08/08/21 08/12/21 History aspirin 81 mg tablet,delayed 81 mg PO BID 42 Days #0 tab 08/12/21 08/12/21 Rx release tramadol 50 mg tablet 50 mg PO Q6H PRN #30 tab 08/12/21 08/12/21 Rx Allergies Allergy/AdvReac Type Severity Reaction Status Date / Time oxycodone [From OxyContin] Allergy Intermediate Hives Verified 08/11/21 06:56 Past Med/Surg History Medical History Chronic obstructive pulmonary disease - Well controlled per pt - Did finish recent Z pack and prednisone (will finish 07/27/21)- questionable COPD exacerbation- pt feels secondary to allergies - wheezing improved -Follows with Dinora Zelaya (PCP) for lung issues GERD (gastroesophageal reflux disease) Well controlled and stable with medication History of basal cell carcinoma back and forehead (was removed) Hyperlipidemia Hypertension Obesity On home oxygen therapy 2 LPM at Osteoarthritis Surgical History H/O colonoscopy H/O tubal ligation History of left cataract extraction History of repair of rotator cuff LEFT History of tooth extraction all teeth History of total hip arthroplasty Right TALYA: 03/28/18: SAB x 2 attempts (L3-L4 with 1 attempt at L4-L5) at [facility] Hx of right cataract extraction Status post left knee replacement (~12/2019) Left TKA (01/11/20): SAB at L3/4 (x1 attempt) + PNB at [facility]. No issues per post-op anesthesia progress note. Family History Grandfather (Maternal) Family history of diabetes mellitus Aunt Family history of diabetes mellitus Brother Family history of diabetes mellitus Sister Family history of diabetes mellitus Father Family hx of colon cancer Social History Smoking Status: Former smoker Cigarettes Per Day: Quit 2015; Second Hand Exposure: No; Hx Alcohol Use: Yes Alcohol type: beer and wine Hx Substance Use: No Preferred Language: Swedish Communication Ability: Effective Skinning Machine Feeder Required: No Beliefs That Will Affect Care: None marital status: Current Living Situation: Spouse Feels Safe at Home: Yes Assistive Devices: Walker Review of Systems A total of 10 systems reviewed and were otherwise negative Physical Exam Vital Signs Vital Signs - 24 hr 08/12/21 22:41 Temperature 36.6 C Temperature Source Oral Pulse Rate 79 Respiratory Rate 18 Respiratory Effort / Characteristics Non-Labored Respiratory Depth Normal Blood Pressure 147/83 H Blood Pressure Mean 104 Pulse Oximetry 94 Sepsis Recent Fever Within 48 Hours No Sepsis New/Unexplained Change in Mental Status Yes Sepsis Action Taken by Nursing No Action Required VITALS: Vitals are noted on the nurse's note and reviewed by myself. Vital signs stable. GENERAL: Elderly female slow to respond following commands, in no acute distress, nondiaphoretic, well-developed well-nourished. SKIN: The skin was without rashes, erythema, edema, or bruising. There is no tenting of the skin. Capillary reflex less than 2 seconds. HEAD: Normocephalic atraumatic. EARS: External auditory canals clear EYES: Pupils equal round and reactive to light and accommodation. Conjunctivae without injection, sclerae without icterus. Extraocular movements intact. NOSE: Patent, turbinates without inflammation or discharge. MOUTH: Mucous membranes moist. Pharynx without erythema or exudate. Uvula midline. Airway patent. Tongue does not deviate. NECK: Supple without nuchal rigidity. No lymphadenopathy. No thyromegaly. Cervical spine is nontender. No JVD. HEART: Regular rate and rhythm LUNGS: Clear to auscultation bilaterally without wheezes, rales or rhonchi. No retractions or accessory muscle use. ABDOMEN: Positive bowel sounds x 4. Normal tympanic percussion. Soft, nontender, without masses or organomegaly. Crabtree sign negative. No guarding o r rebound tenderness. No CVA tenderness MUSCULOSKELETAL: No muscle atrophy, erythema, or edema noted. Right knee with incisional site intact that appears well. NEURO: Patient was alert and oriented to person place and time. Normal sensation to light and sharp touch. No focal neurological deficits. Course Administered Medications Potassium Chloride (K Kt / Wtr) 10 meq in 100 mls @ 100 mls/hr IV Q1H AYAN; Protocol Stop: 08/13/21 01:44 Last Admin: 08/13/21 00:26 Dose: 100 mls/hr Documented by: [id number] Discontinued Medications Sodium Chloride (Nss) 500 mls @ 999 mls/hr IV .Q31M AYAN Stop: 08/12/21 23:30 Last Infusion: 08/12/21 23:58 Dose: 0 mls/hr Documented by: [id number] Admin: 08/12/21 23:18 Dose: 999 mls/hr Documented by: [id number] Piperacillin Sod/Tazobactam Sod (Zosyn) 4.5 gm in 120 mls @ 240 mls/hr IV NOW ONE Stop: 08/13/21 00:27 Last Admin: 08/13/21 00:25 Dose: 240 mls/hr Documented by: [id number] Ondansetron HCl (Ondansetron Inj 2 Mg/Ml 2 Ml Vial) 4 mg IV NOW STA Stop: 08/12/21 22:49 Last Admin: 08/12/21 22:56 Dose: 4 mg Documented by: [id number] Potassium Chloride (Potassium Chloride 10 Meq Tabcr) 40 meq PO NOW STA Stop: 08/12/21 23:40 Last Admin: 08/12/21 23:47 Dose: 40 meq Documented by: [id number] Medical Decision Making Medical Records Attestation: I reviewed the patient's medical records. Home Medications Current Medication List: was personally reviewed by me Laboratory Data Attestation: I reviewed the patient's lab results. Result diagrams: 08/12/21 22:45 08/12/21 22:45 Lab Results 08/12/21 08/12/21 08/12/21 Range/Units 22:45 22:45 22:45 WBC 12.16 H (4.8-10.8) K/uL RBC 3.32 L (4.2-5.4) M/uL Hgb 10.1 L (12.0-16.0) g/dL Hct 29.4 L (37-47) % MCV 88.6 (80-100) fL MCH 30.4 (25-34) pg MCHC 34.4 (32-36) g/dL RDW Std Deviation 47.1 H (36.4-46.3) fL RDW Coeff of Jc 14.4 (11.5-14.5) % Plt Count 281 (130-400) K/uL MPV 9.6 (7.4-10.4) fL Immature Gran % (Auto) 0.2 % Neut % (Auto) 69.8 % Lymph % (Auto) 21.9 % [place] % (Auto) 7.2 % Eos % (Auto) 0.8 % Baso % (Auto) 0.1 % Neut # (Auto) 8.50 H (1.4-6.5) K/uL Lymph # (Auto) 2.66 (1.2-3.4) K/uL [place] # (Auto) 0.87 H (0.11-0.59) K/uL Eos # (Auto) 0.10 (0-0.5) K/uL Baso # (Auto) 0.01 (0-0.2) K/uL Immature Gran # (Auto) 0.02 (0.00-0.02) K/uL Sodium 132 L (136-145) mmol/L Potassium 3.0 L (3.5-5.1) mmol/L Chloride 97 L (98-107) mmol/L Carbon Dioxide 25 (21-32) mmol/L Anion Gap 10 (3-11) BUN 21 (6-23) mg/dl Creatinine 0.73 (0.6-1.2) mg/dl Est Cr Clr Drug Dosing 73.0 ml/min Est GFR ( Amer) 96.0 ml/min Est GFR (Non-Af Amer) 82.9 ml/min BUN/Creatinine Ratio 28.8 H (10-20) Glucose 137 H (70-99(Fasting)) mg/dl POC Glucose (70-99) mg/dl Calcium 8.8 (8.5-10.1) mg/dl Magnesium 1.9 (1.7-2.4) mg/dl Total Bilirubin 0.6 (0.2-1.0) mg/dl AST 19 (13-39) U/L ALT 11 (7-52) U/L Alkaline Phosphatase 87 (34-104) U/L Total Creatine Kinase 197 H (26-192) U/L Troponin I High Sens 3.9 (0-14) pg/ml Total Protein 6.3 (6.0-8.3) gm/dl Albumin 3.9 (3.4-5.0) gm/dl Globulin 2.4 L (2.5-4.0) gm/dl Albumin/Globulin Ratio 1.6 (0.9-2) TSH 2.118 (0.300-4.500) uIu/ml SARS-CoV-2, RNA, NAAT (NEGATIVE) 08/12/21 08/12/21 Range/Units 23:37 Unknown WBC (4.8-10.8) K/uL RBC (4.2-5.4) M/uL Hgb (12.0-16.0) g/dL Hct (37-47) % MCV (80-100) fL MCH (25-34) pg MCHC (32-36) g/dL RDW Std Deviation (36.4-46.3) fL RDW Coeff of Jc (11.5-14.5) % Plt Count (130-400) K/uL MPV (7.4-10.4) fL Immature Gran % (Auto) % Neut % (Auto) % Lymph % (Auto) % [place] % (Auto) % Eos % (Auto) % Baso % (Auto) % Neut # (Auto) (1.4-6.5) K/uL Lymph # (Auto) (1.2-3.4) K/uL [place] # (Auto) (0.11-0.59) K/uL Eos # (Auto) (0-0.5) K/uL Baso # (Auto) (0-0.2) K/uL Immature Gran # (Auto) (0.00-0.02) K/uL Sodium (136-145) mmol/L Potassium (3.5-5.1) mmol/L Chloride (98-107) mmol/L Carbon Dioxide (21-32) mmol/L Anion Gap (3-11) BUN (6-23) mg/dl Creatinine (0.6-1.2) mg/dl Est Cr Clr Drug Dosing ml/min Est GFR ( Amer) ml/min Est GFR (Non-Af Amer) ml/min BUN/Creatinine Ratio (10-20) Glucose (70-99(Fasting)) mg/dl POC Glucose 135 H (70-99) mg/dl Calcium (8.5-10.1) mg/dl Magnesium (1.7-2.4) mg/dl Total Bilirubin (0.2-1.0) mg/dl AST (13-39) U/L ALT (7-52) U/L Alkaline Phosphatase (34-104) U/L Total Creatine Kinase (26-192) U/L Troponin I High Sens (0-14) pg/ml Total Protein (6.0-8.3) gm/dl Albumin (3.4-5.0) gm/dl Globulin (2.5-4.0) gm/dl Albumin/Globulin Ratio (0.9-2) TSH (0.300-4.500) uIu/ml SARS-CoV-2, RNA, NAAT NEGATIVE (NEGATIVE) Imaging Data Attestation: I personally reviewed and interpreted this imaging study as follows: MDM Narrative Prior records/ancillary studies reviewed. Triage Nursing notes reviewed. Additional history obtained from family and EMS The patient's history was concerning for syncope. Differential diagnosis: Etiologies such as vasovagal event, infection, hypoglycemia, electrolyte abnormalities, cardiac sources, intracerebral event, toxicologic, neurologic, as well as others were entertained. Physical examination: As above ER treatment provided: IV hydration with normal saline, zofran, zosyn for aspiration On reassessment the patient felt better. An order was placed for continuous cardiac monitoring. The monitor shows a rate of 60-100 with a sinus rhythm. Diagnostics interpretation by me: ECG: Ordered for syncope EKG: Normal sinus, normal intervals, low voltage, no acute ST-T wave changes. Impression normal sinus rhythm with low voltage interpreted by myself I think arrhythmia is unlikely. EKG shows normal sinus rhythm with no interval abnormalities such as QT prolongation or WPW. There are no findings to suggest Brugada syndrome. Cardiac monitoring in the emergency department reveals no tachycardic or bradycardic dysrhythmia. Hypertrophic cardiomyopathy was considered but there are no clear historical elements pointing toward this. EKG is not suggestive. The QRS voltage is not extremely large and there are no suggestive Q waves. The labs revealed hypokalemia and patient cannot tolerate p.o. so was given IV Negative troponin Mild anemia Imaging studies: CT HEAD: No intracranial hemorrhage. No significant mass-effect or midline shift. No evidence for cortical infarct or skull fracture. Underlying parenchymal involutional changes and periventricular presumed microvascular changes appears chronic. No significant overlying acute traumatic soft tissue abnormality. No radiopaque foreign body. The paranasal sinuses and mastoid air cells are unremarkable. The nasal bones not included. Radiologist: Kaushal Machado MD CT C SPINE: No acute osseous traumatic injury or significant abnormal alignment. Multilevel degenerative changes. No significant osseous central canal stenosis. Radiologist: Kaushal Machado MD Chest x-ray with no acute consolidation, pneumothorax or free air per my interpretation Consultation: A consultation was placed with the hospitalist. The case was discussed and diagnostics were reviewed. The patient was evaluated in the ER for further treatment. This appears to be consistent with syncope a few times along with nausea and vomiting and aspiration. I was called to the room as there was concerns the patient was having a seizure. This did not seem consistent. Patient tried to swallow the potassium tablet and vomited and became unresponsive for a few seconds. Nothing prolonged. Patient states sometimes she gets like this when she vomits. Patient apparently aspirated while in the ER. She was reassessed and was speaking full sentences. She is alert and oriented x3. By the evaluation outlined above emergent etiologies such as hypoglycemia, intracerebral event, toxicologic, as well as others were deemed relatively unlikely. The pt informed about the findings as listed above. All questions were answered and pleased with the treatment. The chart was completed utilizing katena Speech voice recognition software. Grammatical errors, random word insertions, pronoun errors, and incomplete sent ences are an occassional consequence of this system due to software limitations, ambient noise, and hardware issues. Any formal questions or concerns about the content, text, or information contained within the body of this dictation should be directly addressed to the physician refinery operator assistant for clarification. Impression & Plan Syncope, Nausea & vomiting, Aspiration into airway Discharge Plan Visit Data Chief Complaint: Syncope ED Provider: Ashley Walls ED Midlevel Provider: Esteban,Katye M Discharge Problem: Syncope, Nausea & vomiting, Aspiration into airway Patient Disposition: Admitted As Inpatient Condition: Fair Forms Stand Alone Forms: My [facility] Prescriptions Prescriptions: No Action ipratropium-albuterol 0.5 mg-3 mg(2.5 mg base)/3 mL solution for nebulization 3 ml inhalation Q8H PRN (Reason: shortness of breath or wheezing) Qty: 180 RF: 2 albuterol sulfate 90 mcg/actuation HFA aerosol inhaler 2 puff INHALATION Q6H PRN (Reason: Wheezing) Qty: 18 RF: 2 lovastatin 40 mg tablet 40 mg PO PM RF: 0 Anoro Ellipta 62.5-25 mcg/actuation blister with device 1 inh INH QAM Qty: 3 RF: 1 losartan 50 mg Tablet 50 mg PO QAM RF: 0 omeprazole 20 mg Capsule,Delayed Release(Dr/Ec) 20 mg PO QAM RF: 0 hydrochlorothiazide 25 mg Tablet 25 mg PO QAM RF: 0 gabapentin 100 mg Capsule 100 mg PO TID RF: 0 Probiotic 3 billion cell Capsule 3,000 mmu cells PO QAM RF: 0 diphenhydramine-acetaminophen [Tylenol PM Extra Strength] 25-500 mg Tablet 2 tab PO HS PRN (Reason: Sleep) RF: 0 acetaminophen 325 mg Tablet 325 mg PO QID PRN (Reason: Pain) RF: 0 Arnuity Ellipta 200 mcg/actuation Blister With Device 1 inh INHALATION DAILY RF: 0 levocetirizine 5 mg tablet 5 mg PO QAM RF: 0 guaifenesin [Mucinex] 600 mg tablet extended release 12hr 600 mg PO QAM RF: 0 ondansetron HCl 4 mg tablet 4 mg PO QPM RF: 0 montelukast [Singulair] 10 mg tablet 10 mg PO QAM RF: 0 aspirin 81 mg Tablet,Delayed Release (Dr/Ec) 81 mg PO BID 42 Days Qty: 0 RF: 0 tramadol 50 mg tablet 50 mg PO Q6H PRN (Reason: pain) Qty: 30 RF: 0 Referrals Referrals: Rafa Vargas MD [Primary Care Provider] - Discharge Problem: Syncope Qualifiers: Syncope type: unspecified Qualified Code(s): R55 - Syncope and collapse
[2021-08-12] MEDS ORDERED: SODIUM CHLORIDE 0.9% 500 ML IV SCH (23:00)
[2021-08-12 23:11] LABS: Hematocrit (blood only) 29.4 % (37-47); Hemoglobin 10.1 g/dL (12.0-16.0); Mean Corpuscular Hemoglobin 30.4 pg (25-34); Mean Corpuscular Hgb Conc 34.4 g/dL (32-36); Mean Corpuscular Volume 88.6 fL (80-100); Mean Platelet Volume 9.6 fL (7.4-10.4); Platelet Count 281 K/uL (130-400); RDW Coefficient of Variation 14.4 % (11.5-14.5); RDW Standard Deviation 47.1 fL (36.4-46.3); Red Blood Count 3.32 M/uL (4.2-5.4); White Blood Count 12.16 K/uL (4.8-10.8)
[2021-08-12 23:28] LABS: Basophils # (auto) 0.01 K/uL (0-0.2); Basophils % (auto) 0.1 %; Eosinophils % (auto) 0.8 %; Immature Granulocytes # (auto) 0.02 K/uL (0.00-0.02); Immature Granulocytes % (auto) 0.2 %; Lymphocytes # (auto) 2.66 K/uL (1.2-3.4); Lymphocytes % (auto) 21.9 %; Monocytes # (auto) 0.87 K/uL (0.11-0.59); Monocytes % (auto) 7.2 %; Neutrophils % (auto) 69.8 %
[2021-08-12 23:35] LABS: Albumin Globulin Ratio 1.6 (0.9-2); Albumin Level 3.9 gm/dl (3.4-5.0); BUN Creatinine Ratio 28.8 (10-20); Bilirubin,Total 0.6 mg/dl (0.2-1.0); Calcium 8.8 mg/dl (8.5-10.1); Est GFR (Non-African American) 82.9 ml/min; Globulin 2.4 gm/dl (2.5-4.0); Magnesium 1.9 mg/dl (1.7-2.4); Total Protein 6.3 gm/dl (6.0-8.3)
[2021-08-12 23:41] LABS: Troponin I High Sensitivity 3.9 pg/ml (0-14)
[2021-08-12] MEDS: POTASSIUM CHLORIDE 10 MEQ TABCR PO STA (23:47)
[2021-08-12] MEDS ORDERED: PIPERACILLIN/TAZOBACTAM 4.5 GM/120 ML BAG IV ONE (23:58)
[2021-08-13] MEDS: POTASSIUM CHLORIDE / WTR 10 MEQ/100 ML PLCT IV SCH ×2 (00:26→02:43)
[2021-08-13] MEDS: POTASSIUM CHLORIDE 10 MEQ TABCR PO STA (01:14)
[2021-08-13] MEDS ORDERED: KETOROLAC TROMETHAMINE 15 MG/ML VIAL IV ONE (02:12)
[2021-08-13] MEDS ORDERED: POTASSIUM CHLORIDE CRTAB 20 MEQ TABCR PO STA ×2 (02:12→07:53)
[2021-08-13] MEDS ORDERED: POTASSIUM CHLORIDE 20 MEQ/15 ML UDC PO STA (02:14)
[2021-08-13 02:25] LABS: Appearance Urine Clear (Clear); Bilirubin Urine Negative (Negative); Blood Urine Negative (Negative); Color Urine Yellow; Glucose Urine UA Negative (Negative); Ketones Urine Negative (Negative); Leukocyte Esterase Urine Negative (Negative); Nitrite Urine Negative (Negative); Protein Urine Negative (Negative); Specific Gravity Urine 1.016 (1.000-1.030); Urobilinogen Urine Negative (Negative); pH Urine 5.5 (4.5-7.5)
--- NOTE | 2021-08-13 03:16 | History and Physical Report ---
DATE OF CONSULTATION: 08/13/2021. CHIEF COMPLAINT: Syncope. HISTORY OF PRESENT ILLNESS: A 71-year-old female with past medical history significant for COPD, hyperlipidemia, nocturnal hypoxemia, hypertension, restless legs syndrome, basal cell carcinoma of forehead, history of tobacco abuse, history of ground-glass opacities on imaging of lung, presents with syncopal episode. The patient had right knee replacement on 08/11/2021 and got discharged in the afternoon of 08/12/2021. After going home yesterday in the evening, she was sitting on the chair when she rolled her eyes up into her head and passed out about for 1 minute.Has nausea, vomiting at home. It happened 2-3 times and after coming back, she was confused for a few seconds and then she was back to normal. Before passing out, she felt lightheaded.Here in the ER also she had a couple of episodes for brief seconds, similar episodes. No shaking of the body or biting of the tongue. No incontinence of urine or stool. No chest pain, no shortness of breath. Feeling cold. No fever. No blurred visions, no earache, no runny nose, no sore throat. Hemodynamics are stable. At home she moved her bowels normal. Normal micturition. ALLERGIES: OXYCODONE. PAST MEDICAL HISTORY: As mentioned above. PAST SURGICAL HISTORY: Cataract surgery bilaterally, colonoscopy, ligation of oviducts, left shoulder arthroscopy, right total hip replacement. MEDICATIONS: The patient is on Tylenol 325 mg p.o. q.i.d. p.r.n., albuterol 2 puffs inhalation q. 6 hours p.r.n., Anoro Ellipta 1 inhalation daily, aspirin 81 mg p.o. b.i.d., Tylenol Extra Strength 2 tablets p.o. at bedtime p.r.n., Gabapentin 100 mg p.o. t.i.d., Mucinex 600 mg p.o. a.m., hydrochlorothiazide 25 mg p.o. a.m., DuoNeb q. 8 hours p.r.n., levocetirizine 5 mg p.o. a.m., losartan 50 mg p.o. a.m., lovastatin 40 mg p.o. a.m., Singulair 20 mg p.o. a.m., omeprazole 20 mg p.o. a.m., Zofran 4 mg p.o. a.m., probiotic 1 capsule daily, tramadol 50 mg p.o. q. 6 hours p.r.n. FAMILY HISTORY: Significant for mother had COPD, CABG, aortic aneurysm, lung disorder; father had colon cancer; paternal grandfather had COPD; paternal grandmother had cancer; mother had diabetes; brother has diabetes. SOCIAL HISTORY: . Former smoker, quit in 2016. Smoked 1 pack a day for 49 years. Alcohol occasional. No drug use. REVIEW OF SYSTEMS: As per HPI. Rest of the review of systems is negative. PHYSICAL EXAMINATION: GENERAL: The patient is of moderate build, not in acute distress. VITAL SIGNS: Temperature 36.6, pulse 75, respiratory rate 14, blood pressure 125/86, oxygen 98%. HEENT: Pupils equal, round and reactive to light. Oral mucosa moist. NECK: No JVD. No neck masses. CARDIOVASCULAR: S1 and S2 heard. Regular rate and rhythm. No murmur, no gallop. RESPIRATORY SYSTEM: Normal AP diameter. No accessory muscle use. No wheezing, no crackles. ABDOMEN: Soft. Bowel sounds are present, nontender, no distention. CENTRAL NERVOUS SYSTEM: Alert and oriented. Speech is clear. No facial droop. Obeys commands. Insight is good. Moves extremities. EXTREMITIES: Status post right total knee arthroplasty. Incision site is clean, no drainage seen. No edema seen. LABORATORY: WBC 12.1, hemoglobin 10.1, hematocrit 29.4, platelets 281. Sodium 132, potassium 3, chloride 97, bicarb 25, BUN 21, creatinine 0.7, serum glucose 137, calcium 8.8, magnesium 1.9, total bilirubin 0.6, AST 19, ALT 11, alkaline phosphatase 87, total creatine kinase 107. Troponin I high sensitivity 3.9. TSH 2.8. SARS-CoV-2 rapid test negative. IMAGING: CT of the head, preliminary report unremarkable. Cervical spine CT, preliminary report unremarkable. Chest x-ray, no acute findings. EKG: Normal sinus rhythm, no acute ST changes seen. ASSESSMENT AND PLAN: This is a 71-year-old female who presents with syncope. 1. Syncope, most likely postop. Will check orthostatics. Monitor in the tele floor. Echocardiogram. Follow serial cardiac enzymes. If any concern, consult cardiology. 2. History of hypertension: Continue losartan, hydrochlorothiazide. We will monitor her blood pressure. 3. History of COPD. Continue home inhalers. Currently seems to be stable. 4. Hyperlipidemia: Continue statin. 5. Gastroesophageal reflux disease: Continue omeprazole. 6. Deep venous thrombosis prophylaxis:Lovenox. The patient was discharged on aspirin 81 mg p.o. b.i.d. DISPOSITION: Admit to tele floor. PT/OT prior to discharge. Social Service to help with discharge planning. Level 1 full code. Job ID: [id number] MTDD
[2021-08-13] MEDS ORDERED: ALBUT/IPRATROP 3MG/0.5MG NEB 3 ML VIAL INH PRN (03:28)
[2021-08-13] MEDS ORDERED: NITROGLYCERIN SL 0.4 MG/TAB TAB SL PRN (03:28)
[2021-08-13] MEDS ORDERED: ONDANSETRON INJ 2 MG/ML 2 ML VIAL IV PRN (03:28)
[2021-08-13] MEDS ORDERED: ALBUTEROL HFA 8 GM INHALER INH PRN (03:28)
[2021-08-13] MEDS ORDERED: ACETAMINOPHEN 325 MG TAB PO PRN (03:28)
[2021-08-13] MEDS ORDERED: POLYETHYLENE (MIRALAX) 17 GM PACK PO PRN (03:28)
[2021-08-13] MEDS: SODIUM CHLORIDE 0.9% 1000ML 1,000 ML IV SCH ×2 (03:43→14:46)
[2021-08-13 05:56] LABS: Basophils # (auto) 0.01 K/uL (0-0.2); Basophils % (auto) 0.1 %; Eosinophils # (auto) 0.03 K/uL (0-0.5); Eosinophils % (auto) 0.3 %; Hematocrit (blood only) 26.7 % (37-47); Hemoglobin 9.1 g/dL (12.0-16.0); Immature Granulocytes # (auto) 0.02 K/uL (0.00-0.02); Immature Granulocytes % (auto) 0.2 %; Lymphocytes # (auto) 1.18 K/uL (1.2-3.4); Mean Corpuscular Hemoglobin 29.8 pg (25-34); Mean Corpuscular Hgb Conc 34.1 g/dL (32-36); Mean Corpuscular Volume 87.5 fL (80-100); Monocytes # (auto) 0.94 K/uL (0.11-0.59); Monocytes % (auto) 8.8 %; Neutrophils # (auto) 8.51 K/uL (1.4-6.5); Neutrophils % (auto) 79.6 %; Platelet Count 262 K/uL (130-400); RDW Coefficient of Variation 14.5 % (11.5-14.5); RDW Standard Deviation 46.8 fL (36.4-46.3); Red Blood Count 3.05 M/uL (4.2-5.4); White Blood Count 10.69 K/uL (4.8-10.8)
[2021-08-13 06:25] LABS: Troponin I High Sensitivity 5.1 pg/ml (0-14)
[2021-08-13 06:41] LABS: BUN Creatinine Ratio 26.5 (10-20); Calcium 8.2 mg/dl (8.5-10.1); Magnesium 1.8 mg/dl (1.7-2.4); Phosphorus 3.3 mg/dl (2.5-4.9); Potassium 3.6 mmol/L (3.5-5.1)
--- NOTE | 2021-08-13 07:12 | XRay Report ---
XR chest 1V portable CLINICAL HISTORY: weakness COMPARISON STUDY: Chest radiograph July 26, 2021. Chest CT October 13, 2018. FINDINGS: Lung volumes are normal. Lungs are clear. There is no pneumothorax or pleural effusion. Car diac size is stable. Emphysema is better depicted on prior chest CT. Mediastinal contours are normal. There is no evidence for pulmonary edema. IMPRESSION: No acute cardiopulmonary findings. ACT 112: Negative or not required by law. Electronically signed by: Rolando Higgins M.D. 08/13/2021 7:11 AM
--- NOTE | 2021-08-13 07:42 | CT Scan Report ---
CT head/brain wo con CLINICAL HISTORY: syncope/HI/N/v, unresponsive 1-2 min COMPARISON STUDY: No previous studies for comparison. CT DOSE: TECHNIQUE: Standard CT of the Brain was performed without IV contrast. A dose lowering technique was utilized adhering to the principles of ALARA. FINDINGS: Extraaxial space: There is no evidence for subdural hematoma. There are no extra-axial fluid collecti ons. Ventricles and cisterns: The ventricles are mildly dilated bilaterally. There is no evidence for midl ine shift or mass effect. Parenchyma: There is no subarachnoid or intraparenchymal hemorrhage. There is no evidence for an acut e infarct or cerebral edema. There is mild cerebral cortical atrophy and decreased attenuation in the periventricular white matter representing remote small vessel disease. There are no gross mass lesio ns. Osseous structures: There is no evidence for an acute fracture. The visualized paranasal sinuses are clear. The mastoid air cells are clear bilaterally. Soft tissues: There is no evidence for focal soft tissue swelling. IMPRESSION: 1. No acute intracerebral pathology. 2. Cerebral cortical atrophy and remote small vessel disease. ACT 112: Negative or not required by law. Electronically signed by: Stewart Ayala M.D. 08/13/2021 7:40 AM
--- NOTE | 2021-08-13 07:45 | CT Scan Report ---
CT cervical spine wo con CLINICAL HISTORY: syncope/HI/N/v, unresponsive 1-2 min . Neck pain COMPARISON STUDY: No previous studies for comparison. CT DOSE: 877.45 mGy.cm TECHNIQUE: Standard CT of the Cervical Spine was performed without IV contrast. A dose lowering nirali hnique was utilized adhering to the principles of ALARA. FINDINGS: Bones: The bones are osteopenic. There is no evidence for an acute fracture or malalignment. The heig hts of the vertebral bodies are maintained. The vertebral bodies are in anatomic alignment. The odont oid is intact. Degenerative changes are seen at the atlantoaxial articulation. Disc spaces: There is marked disc space narrowing at C5-6 with endplate sclerosis and osteophyte form ation. Mild disc space narrowing seen throughout the remainder of the cervical spine. Apophyseal joints: Marked degenerative apophyseal joint disease is present bilaterally. Soft tissues: The prevertebral soft tissues are within normal limits. IMPRESSION: 1. Osteopenia with no acute osseous pathology. 2. Degenerative disc and degenerative joint disease. ACT 112: Negative or not required by law. Electronically signed by: Stewart Ayala M.D. 08/13/2021 7:43 AM
[2021-08-13] MEDS: KETOROLAC TROMETHAMINE 15 MG/ML VIAL IV PRN ×3 (08:24→22:14)
[2021-08-13] MEDS: FLUTICASONE FUROATE 200MCG 14 PUFFS/INHALER INH SCH (08:27)
[2021-08-13] MEDS: UMECLIDINIUM/VILANTEROL 62.5/25MCG 7 PUFFS/INHALER INH SCH (08:27)
[2021-08-13] MEDS: CETIRIZINE HCL 10 MG TABLET PO SCH (08:28)
[2021-08-13] MEDS: PANTOprazole 40 MG TAB PO SCH (08:28)
[2021-08-13] MEDS: GABAPENTIN 100 MG CAP PO SCH ×3 (08:28→22:08)
[2021-08-13] MEDS: ADVANCED PROBIOTIC 1250 MG CAPSULE PO SCH (08:28)
[2021-08-13] MEDS: LOSARTAN POTASSIUM 50 MG TAB PO SCH (08:28)
[2021-08-13] MEDS: guaiFENesin 600 MG TABCR PO SCH (08:29)
[2021-08-13] MEDS: MONTELUKAST SODIUM 10 MG TABLET PO SCH (08:29)
[2021-08-13] MEDS ORDERED: hydroCHLOROthiazide 25 MG TAB PO SCH (09:00)
--- NOTE | 2021-08-13 10:24 | Electrocardiogram Report ---
Test Reason : Blood Pressure : / mmHG Vent. Rate : 082 BPM Atrial Rate : 082 BPM P-R Int : 168 ms QRS Dur : 088 ms QT Int : 400 ms P-R-T Axes : 037 051 058 degrees QTc Int : 467 ms Normal sinus rhythm Low voltage QRS Borderline ECG When compared with ECG of 26-JUL-2021 09:42, No significant change was found Confirmed by Rickey Montoya ([id number]) on 08/13/2021 10:23:52 AM Referred By: REFERRED SELF Confirmed By:Rickey Montoya
--- NOTE | 2021-08-13 10:31 | Electrocardiogram Report ---
Test Reason : Blood Pressure : / mmHG Vent. Rate : 078 BPM Atrial Rate : 078 BPM P-R Int : 176 ms QRS Dur : 086 ms QT Int : 396 ms P-R-T Axes : 075 052 065 degrees QTc Int : 451 ms Normal sinus rhythm Low voltage QRS Borderline ECG When compared with ECG of 12-AUG-2021 22:42, (unconfirmed) No significant change was found Confirmed by Rickey Montoya ([id number]) on 08/13/2021 10:31:04 AM Referred By: REFERRED SELF Confirmed By:Rickey Montoya
[2021-08-13] MEDS: CYCLOBENZAPRINE HCL 5 MG TAB PO SCH ×2 (13:23→22:08)
--- NOTE | 2021-08-13 15:00 | Hospitalist Progress Note ---
Date of Service August 13, 2021 Assessment & Plan (1) Syncope: Plan: 71-year-old female with past medical history significant for COPD, hyperlipidemia, nocturnal hypoxemia, hypertension, restless legs syndrome, basal cell carcinoma of forehead, history of tobacco abuse, history of ground-glass opacities on imaging of lung, presented 08/12 with syncopal episode. The patient had right knee replacement on 08/11/2021 and got discharged in the afternoon of 08/12/2021. After going home, she was sitting on the chair when she rolled her eyes up into her head and passed out about for 1 minute. She reports nausea, and dizziness prior to passing out. She also had some vomiting. Denied any palpitation/chest pain/sob/fever. She is being managed for the following: #. Syncope, likely postop #. S/p Rt Knee Replacement 08/11/2021 Comes in with syncope [see above]. Patient reports skipping supper on the evening of presentation day. Likely postoperative versus lingering anesthesia effect versus orthostatic versus weakness/dehydration. Admitting C-spine CT, CXR, head CT with no acute findings. Troponin x3 are negative. Admitting EKG with normal sinus rhythm. Follow-up EKG with no changes. 08/13 echo: Grade 1 diastolic dysfunction, EF 60 to 65%. No wall motion abnormalities noted. Status post IV fluid resuscitation. Patient reports improvement in her dizziness with changing position. No further passing out while on the floor per patient. Diet as tolerated, as needed nausea medication. Patient reports not tolerating tramadol/gives her confusion, will use Toradol. Observe overnight. Await orthostatic vitals, likely will be not revealing as patient had received multiple fluid resuscitation's. Monitor and replete electrolytes, keep potassium greater than 4.0 and magnesium greater than 2.0. #. Mild hyponatremia Admitting sodium of 132, likely due to decreased dietary intake. Follow #. Other chronic medical conditions: HTN, COPD, HLD, GERD Continue/monitor home meds as and when appropriate. Continue to hold HCTZ, losartan with parameters. #. DVT prophylaxis: Subcu heparin #. Disposition: PT/OT, CM to assist with DC planning. Expect discharge in next 1 day unless no new issues arises. Admission and Anticipated Discharge Date Admission Date: August 13, 2021 Subjective Patient seen and examined at bedside for follow-up of syncope, most likely postoperative. Patient was lying in bed, on room air, NAD, reports multiple passing outs continuing up to ED but none after getting transferred up to the floor. Patient also reports nausea and dizziness prior to passing out and dizziness especially when she changes her position quickly from lying to sitting position. Patient also reports right knee pain but under control with pain medication. Patient reports skipping supper on the evening of 08/12 and skipping breakfast 08/13. Patient not eating for fear of nausea, patient made aware she has as needed nausea medication if needed. Patient reports not being able to sleep overnight. Patient denies chest pain or feeling of heart racing or belly pain or acute changes in her bowel or bladder habit. Physical Exam Physical Exam: GENERAL: Alert and oriented x3. NAD, on RA. Obese. HEENT: No pallor, no icterus. Pupils equal, round and reactive to light. Oral mucosa moist. NECK: No JVD, no neck masses. HEART: S1 and S2 heard. Regular rate and rhythm. No murmur, no gallop. RESPIRATORY SYSTEM: Normal AP diameter. No accessory muscle use. No wheezing, no crackles. ABDOMEN: Soft, bowel sounds present, nontender, no distention. CENTRAL NERVOUS SYSTEM: No facial droop. Speech is clear. Obeys simple commands. Moves extremities. EXTREMITIES: No edema, no erythema seen. Rt knee w/ clean dressing, Lt knee w/ healed operative scar. Results & Data Results & Data ([facility]) Vital Signs (Past 12 Hours) Vital Signs Temp Pulse Pulse Resp BP Pulse Ox 08/13/21 07:15 36.8 C 84 16 124/83 96 08/13/21 04:11 74 (1) Syncope Syncope type: unspecified Qualified Code(s): R55 - Syncope and collapse
[2021-08-13] MEDS: MAGNESIUM OXIDE 400 MG TAB PO SCH ×2 (16:40→21:43)
[2021-08-13] MEDS ORDERED: MELATONIN 3 MG TAB PO SCH (21:00)
[2021-08-13] MEDS ORDERED: LOVASTATIN 20 MG TAB PO SCH (21:00)
[2021-08-13] MEDS: HEPARIN SOD 5,000 UNIT/0.5 ML VIAL SQ SCH (21:42)
[2021-08-14] MEDS: UMECLIDINIUM/VILANTEROL 62.5/25MCG 7 PUFFS/INHALER INH SCH (07:47)
[2021-08-14] MEDS: FLUTICASONE FUROATE 200MCG 14 PUFFS/INHALER INH SCH (07:47)
[2021-08-14] MEDS: CYCLOBENZAPRINE HCL 5 MG TAB PO SCH (07:48)
[2021-08-14] MEDS: GABAPENTIN 100 MG CAP PO SCH (07:48)
[2021-08-14] MEDS: LOSARTAN POTASSIUM 50 MG TAB PO SCH (07:48)
[2021-08-14] MEDS: MAGNESIUM OXIDE 400 MG TAB PO SCH (07:48)
[2021-08-14] MEDS: HEPARIN SOD 5,000 UNIT/0.5 ML VIAL SQ SCH (07:50)
[2021-08-14] MEDS: KETOROLAC TROMETHAMINE 15 MG/ML VIAL IV PRN (07:53)
[2021-08-14 08:04] LABS: Hematocrit (blood only) 29.1 % (37-47); Hemoglobin 9.7 g/dL (12.0-16.0); Mean Corpuscular Hemoglobin 30.1 pg (25-34); Mean Corpuscular Hgb Conc 33.3 g/dL (32-36); Mean Corpuscular Volume 90.4 fL (80-100); Mean Platelet Volume 9.5 fL (7.4-10.4); Platelet Count 288 K/uL (130-400); RDW Coefficient of Variation 14.6 % (11.5-14.5); RDW Standard Deviation 48.2 fL (36.4-46.3); Red Blood Count 3.22 M/uL (4.2-5.4); White Blood Count 9.15 K/uL (4.8-10.8)
[2021-08-14 08:33] LABS: BUN Creatinine Ratio 15.2 (10-20); Calcium 9.1 mg/dl (8.5-10.1); Creatinine Clr Calc Pharmacy 81.2 ml/min; Est GFR (Non-African American) 88.9 ml/min; Phosphorus 2.8 mg/dl (2.5-4.9)
[2021-08-14] MEDS: guaiFENesin 600 MG TABCR PO SCH (08:51)
[2021-08-14] MEDS: MONTELUKAST SODIUM 10 MG TABLET PO SCH (08:51)
[2021-08-14] MEDS: CETIRIZINE HCL 10 MG TABLET PO SCH ×2 (08:51→08:56)
[2021-08-14] MEDS: ADVANCED PROBIOTIC 1250 MG CAPSULE PO SCH (08:51)
[2021-08-14] MEDS: PANTOprazole 40 MG TAB PO SCH (10:35)
--- NOTE | 2021-08-14 13:30 | Discharge Summary ---
Date of Service August 14, 2021 Admission HPI Per Admitting Provider CHIEF COMPLAINT: Syncope. HISTORY OF PRESENT ILLNESS: A 71-year-old female with past medical history significant for COPD, hyperlipidemia, nocturnal hypoxemia, hypertension, restless legs syndrome, basal cell carcinoma of forehead, history of tobacco abuse, history of ground-glass opacities on imaging of lung, presents with syncopal episode. The patient had right knee replacement on 08/11/2021 and got discharged in the afternoon of 08/12/2021. After going home yesterday in the evening, she was sitting on the chair when she rolled her eyes up into her head and passed out about for 1 minute.Has nausea, vomiting at home. It happened 2-3 times and after coming back, she was confused for a few seconds and then she was back to normal. Before passing out, she felt lightheaded.Here in the ER also she had a couple of episodes for brief seconds, similar episodes. No shaking of the body or biting of the tongue. No incontinence of urine or stool. No chest pain, no shortness of breath. Feeling cold. No fever. No blurred visions, no earache, no runny nose, no sore throat. Hemodynamics are stable. At home she moved her bowels normal. Normal micturition. ALLERGIES: OXYCODONE. PAST MEDICAL HISTORY: As mentioned above. PAST SURGICAL HISTORY: Cataract surgery bilaterally, colonoscopy, ligation of oviducts, left shoulder arthroscopy, right total hip replacement. MEDICATIONS: The patient is on Tylenol 325 mg p.o. q.i.d. p.r.n., albuterol 2 puffs inhalation q. 6 hours p.r.n., Anoro Ellipta 1 inhalation daily, aspirin 81 mg p.o. b.i.d., Tylenol Extra Strength 2 tablets p.o. at bedtime p.r.n., Gabapentin 100 mg p.o. t.i.d., Mucinex 600 mg p.o. a.m., hydrochlorothiazide 25 mg p.o. a.m., DuoNeb q. 8 hours p.r.n., levocetirizine 5 mg p.o. a.m., losartan 50 mg p.o. a.m., lovastatin 40 mg p.o. a.m., Singulair 20 mg p.o. a.m., omeprazole 20 mg p.o. a.m., Zofran 4 mg p.o. a.m., probiotic 1 capsule daily, tramadol 50 mg p.o. q. 6 hours p.r.n. FAMILY HISTORY: Significant for mother had COPD, CABG, aortic aneurysm, lung disorder; father had colon cancer; paternal grandfather had COPD; paternal grandmother had cancer; mother had diabetes; brother has diabetes. SOCIAL HISTORY: . Former smoker, quit in 2016. Smoked 1 pack a day for 49 years. Alcohol occasional. No drug use. REVIEW OF SYSTEMS: As per HPI. Rest of the review of systems is negative. Admission Exam Per Admitting Provider GENERAL: The patient is of moderate build, not in acute distress. VITAL SIGNS: Temperature 36.6, pulse 75, respiratory rate 14, blood pressure 125/86, oxygen 98%. HEENT: Pupils equal, round and reactive to light. Oral mucosa moist. NECK: No JVD. No neck masses. CARDIOVASCULAR: S1 and S2 heard. Regular rate and rhythm. No murmur, no gallop. RESPIRATORY SYSTEM: Normal AP diameter. No accessory muscle use. No wheezing, no crackles. ABDOMEN: Soft. Bowel sounds are present, nontender, no distention. CENTRAL NERVOUS SYSTEM: Alert and oriented. Speech is clear. No facial droop. Obeys commands. Insight is good. Moves extremities. EXTREMITIES: Status post right total knee arthroplasty. Incision site is clean, no drainage seen. No edema seen. Principal Diagnosis Syncope, likely postoperative Status post right knee replacement 08/11/2021 Mild hyponatremia Discharge Exam GENERAL: Alert and oriented x3. NAD, on RA. Obese. HEENT: No pallor, no icterus. Pupils equal, round and reactive to light. Oral mucosa moist. NECK: No JVD, no neck masses. HEART: S1 and S2 heard. Regular rate and rhythm. No murmur, no gallop. RESPIRATORY SYSTEM: Normal AP diameter. No accessory muscle use. No wheezing, no crackles. ABDOMEN: Soft, bowel sounds present, nontender, no distention. CENTRAL NERVOUS SYSTEM: No facial droop. Speech is clear. Obeys simple commands. Moves extremities. EXTREMITIES: No edema, no erythema seen. Rt knee w/ clean dressing, Lt knee w/ healed operative scar. Discharge Data Allergies Allergy/AdvReac Type Severity Reaction Status Date / Time oxycodone [From OxyContin] Allergy Intermediate Hives Verified 08/11/21 06:56 Consultations 08/12/21 23:58 ED Decision to Admit Stat Ordered Studies 08/12/21 22:48 CT cervical spine wo con Urgent 08/12/21 22:49 CT head/brain wo con Urgent Hospital Course (1) Syncope: 71-year-old female with past medical history significant for COPD, hyperlipidemia, nocturnal hypoxemia, hypertension, restless legs syndrome, basal cell carcinoma of forehead, history of tobacco abuse, history of ground-glass opacities on imaging of lung, presented 08/12 with syncopal episode. The patient had right knee replacement on 08/11/2021 and got discharged in the afternoon of 08/12/2021. After going home, she was sitting on the chair when she rolled her eyes up into her head and passed out about for 1 minute. She reports nausea, and dizziness prior to passing out. She also had some vomiting. Denied any palpitation/chest pain/sob/fever. She was managed for the following: #. Syncope, likely postop #. S/p Rt Knee Replacement 08/11/2021 Comes in with syncope [see above]. Patient reports skipping supper on the evening of presentation day. Likely postoperative versus lingering anesthesia effect versus orthostatic versus weakness/dehydration. Admitting C-spine CT, CXR, head CT with no acute findings. Troponin x3 are negative. Admitting EKG with normal sinus rhythm. Follow-up EKG with no changes. 08/13 echo: Grade 1 diastolic dysfunction, EF 60 to 65%. No wall motion abnormalities noted. Status post IV fluid resuscitation. Patient reports improvement in her dizziness with changing position. No further passing out while on the floor per patient. Nausea improved, patient tolerating diet, patient to continue with electrolyte solution upon discharge, patient aware. Patient being discharged with prn Toradol. To use tramadol on the when needed. Await orthostatic not revealing as patient had received multiple fluid resuscitations prior to the vital taken. Patient to get blood work CBC and CMP done in a week time and have the results forwarded to her primary care physician. #. Mild hyponatremia Admitting sodium of 132, likely due to decreased dietary intake. Follow. Resolved. #. Other chronic medical conditions: HTN, COPD, HLD, GERD Continue/monitor home meds as and when appropriate. Continue to hold HCTZ, losartan with parameters. #. DVT prophylaxis: Subcu heparin #. Disposition: PT/OT, CM to assist with DC planning. Expect discharge in next 1 day unless no new issues arises. Patient being discharged to home with continued home physical therapy with following instruction at the point of discharge: Follow-up with your primary care physician within a week time. Continue with your home physical therapy. You can take electrolyte solutions at home until your diet resumes back to normal. Get your blood work CBC and CMP done in a week time and have the results forwarded to your primary care physician. He will be discharged on Toradol and Flexeril for pain control. Use Toradol as needed for severe pain. Take your medications as prescribed. Total Time Total Time Spent Total Time Spent (In Minutes): 35 Discharge Plan Discharge Items Patient Disposition: Home - Home Health Services Reason For Visit: SYNCOPE Discharge Diagnosis: Syncope, likely postoperative Status post right knee replacement 08/11/2021 Mild hyponatremia Condition on Discharge: Fair Activity: As commented below Activity Comment: Avoid abrupt transitioning from sleeping to sitting & sitting to stand. Non-emergency contact: Primary Care Provider Call non-emergency contact if: you have any medication questions, your symptoms worsen and your temperature is above 101 Follow-up/Referrals: Rafa Vargas MD [Primary Care Provider] - Diet: Heart Healthy Addtl Attending Provider Instructions: Follow-up with your primary care physician within a week time. Continue with your home physical therapy. You can take electrolyte solutions at home until your diet resumes back to normal. Get your blood work CBC and CMP done in a week time and have the results forwarded to your primary care physician. He will be discharged on Toradol and Flexeril for pain control. Use Toradol as needed for severe pain. Take your medications as prescribed. Pending Studies at Discharge: No Stand-Alone Forms: My [employer], Smoking Cessation Medications and DC Order Prescriptions: New cyclobenzaprine 5 mg Tablet 5 mg PO BID 15 Days Qty: 30 RF: 0 ketorolac 10 mg tablet 10 mg PO Q8H PRN (Reason: pain (scale score 7-10)) 4 Days Qty: 12 RF: 0 Continued ipratropium-albuterol 0.5 mg-3 mg(2.5 mg base)/3 mL solution for nebulization 3 ml inhalation Q8H PRN (Reason: shortness of breath or wheezing) Qty: 180 RF: 2 albuterol sulfate 90 mcg/actuation HFA aerosol inhaler 2 puff INHALATION Q6H PRN (Reason: Wheezing) Qty: 18 RF: 2 lovastatin 40 mg tablet 40 mg PO PM RF: 0 Anoro Ellipta 62.5-25 mcg/actuation blister with device 1 inh INH QAM Qty: 3 RF: 1 losartan 50 mg Tablet 50 mg PO QAM RF: 0 omeprazole 20 mg Capsule,Delayed Release(Dr/Ec) 20 mg PO QAM RF: 0 hydrochlorothiazide 25 mg Tablet 25 mg PO QAM RF: 0 gabapentin 100 mg Capsule 100 mg PO TID RF: 0 Probiotic 3 billion cell Capsule 3,000 mmu cells PO QAM RF: 0 diphenhydramine-acetaminophen [Tylenol PM Extra Strength] 25-500 mg Tablet 2 tab PO HS PRN (Reason: Sleep) RF: 0 acetaminophen 325 mg Tablet 325 mg PO QID PRN (Reason: Pain) RF: 0 Arnuity Ellipta 200 mcg/actuation Blister With Device 1 inh INHALATION DAILY RF: 0 levocetirizine 5 mg tablet 5 mg PO QAM RF: 0 guaifenesin [Mucinex] 600 mg tablet extended release 12hr 600 mg PO QAM RF: 0 ondansetron HCl 4 mg tablet 4 mg PO QPM RF: 0 montelukast [Singulair] 10 mg tablet 10 mg PO QAM RF: 0 aspirin 81 mg Tablet,Delayed Release (Dr/Ec) 81 mg PO BID 42 Days Qty: 0 RF: 0 tramadol 50 mg tablet 50 mg PO Q6H PRN (Reason: pain) Qty: 30 RF: 0 Discharge Orders: Discharge Order (Routine); Ordered 08/14/21 Ordered By: Candy Rodgers Admission Data Admit Date/Time: 08/13/21 01:38 Attending Provider: Candy Rodgers Admit Provider: Ab Valera Primary Care Provider: Rafa Vargas Other Providers: Ab Valera
== END 2021-08-14 14:39 | disposition home health service (06) ==
LOC: ED 22:37 → 2S 22:37

== ENCOUNTER 2022-05-22 20:52 | Inpatient (IN) ==
[2022-05-22] MEDS ORDERED: ONDANSETRON INJ 2 MG/ML 2 ML VIAL IV STA (21:22)
[2022-05-22] MEDS ORDERED: SODIUM CHLORIDE 0.9% 500 ML IV ONE (21:22)
[2022-05-22 21:38] LABS: Prothrombin Time 11.1 Seconds (9.0-12.0)
[2022-05-22 21:45] LABS: Basophils # (auto) 0.03 K/uL (0-0.2); Basophils % (auto) 0.5 %; Eosinophils # (auto) 0.31 K/uL (0-0.50); Eosinophils % (auto) 4.7 %; Hematocrit (blood only) 33.5 % (37.0-47.0); Immature Granulocytes # (auto) 0.01 K/uL (0.01-0.20); Immature Granulocytes % (auto) 0.2 %; Lymphocytes # (auto) 1.95 K/uL (1.2-3.4); Lymphocytes % (auto) 29.6 %; Mean Corpuscular Hemoglobin 28.1 pg (25.0-34.0); Mean Corpuscular Hgb Conc 32.8 g/dL (32.0-36.0); Mean Corpuscular Volume 85.7 fL (80.0-100.0); Mean Platelet Volume 9.7 fL (9.4-12.4); Monocytes # (auto) 0.58 K/uL (0.11-0.59); Monocytes % (auto) 8.8 %; Neutrophils # (auto) 3.71 K/uL (1.40-6.50); Neutrophils % (auto) 56.2 %; Platelet Count 297 K/uL (130-400); RDW Standard Deviation 47.2 fL (36.4-46.3); Red Blood Count 3.91 M/uL (4.20-5.40); White Blood Count 6.59 K/ul (4.8-10.8)
[2022-05-22 21:49] LABS: Albumin Globulin Ratio 1.2 (0.9-2); Albumin Level 3.6 gm/dl (3.4-5.0); BUN Creatinine Ratio 23.8 (10-20); Bilirubin,Total 0.4 mg/dl (0.2-1.0); Creatinine Clr Calc Pharmacy 61.4 ml/min; Est GFR (African American) 80.5 ml/min; Est GFR (Non-African American) 69.4 ml/min; Globulin 2.9 gm/dl (2.5-4.0); Potassium 2.8 mmol/L (3.5-5.1); Total Protein 6.5 gm/dl (6.0-8.3)
[2022-05-22 21:54] LABS: Troponin I High Sensitivity 3.7 pg/ml (0-14)
--- NOTE | 2022-05-22 22:18 | Emergency Department Note ---
Impression & Plan Syncope, Nausea & vomiting, Hypokalemia, Abdominal pain ED Provider Note Provider: Mendez Hennessy MD DATE OF SERVICE: 05/22/2022 CHIEF COMPLAINT: Syncope, nausea HISTORY OF PRESENT ILLNESS: Patient is a 72-year-old female history of COPD and syncope but no cardiac history presenting here via ambulance. Patient was at [employer] and was singing and standing for a while and started to have some squeezing sensation in her abdomen to her back. She felt she was going to pass out and collapsed but other members were able to lower the ground and she did not fall. States she was unconscious for a period and then became quite nauseous and vomited. The squeezing sensation in her abdomen to her lower chest and back is now relented but still feeling nauseous. States a similar episode without the syncope occurred last week at [employer]. Did have a bronchitis and cold situation on antibiotics and steroids and finished these last Saturday. Did eat earlier. Denies chest pain or shortness of breath currently. PAST MEDICAL HISTORY: As noted above MEDICATIONS: Reviewed home medications SOCIAL HISTORY: , former smoker quit in 2002 PHYSICAL EXAM: GENERAL: alert and oriented in no acute distress on stretcher Head: normocephalic and atraumatic EYES: No injection, discharge or icterus. PERRL NECK: Trachea midline. ENT: Mucous membranes pink and moist. LUNGS: Airway patent. No retractions. Breath sounds clear HEART: Regular rate and rhythm. No chest wall tenderness ABDOMEN: Soft and non-tender, without guarding or rebound. SKIN: Acyanotic, warm, dry, without rashes EXTREMITIES: Without swelling, tenderness or deformity NEUROLOGICAL: No focal deficits moving all extremity. No aphasia. No facial droop or slurred speech. EK bpm normal sinus rhythm. No PVC or PAC. No acute ST segment elevation or depression. QTc 476 CONTINUOUS CARDIAC MONITORING: was ordered and showed a heart rate of 70s-80s bpm in NSR Patient's laboratory studies and imaging reviewed. Differential includes Vasovagal event, dehydration, infection, hypoglycemia, e lectrolyte abnormalities, cardiac sources, intracerebral event, pulmonary embolism, seizure, toxicologic, neurologic, as well as other pathologies. IMPRESSION/MEDICAL DECISION MAKING: Patient with syncopal episode sounds brief in nature. Denies significant chest pain or shortness of breath now. Not significantly hypotensive or tachycardic. His nausea was given some Zofran here as well as some IV fluids. Similar episode without the syncope last week but syncopized today. No significant t rauma. EKG obtained as well as troponin without initial findings. Did receive aspirin and nitro in route with EMS and squeezing sensation resolved. Does not have a cardiac history but age is obviously a risk factor. No recent travel or leg swelling and lower suspicion for acute PE. Does have some underlying COPD. X-ray without obvious evidence of fluid overload, pneumothorax, or pneumonia per my review. Slight anemia but no leukocytosis on blood work. Hypokalemia is noted may be contributing to some degree. No evidence of acute pancreatitis or hepatitis on labs. Benign abdomen do not feel needed nominal imaging. Negative COVID test. Ordered some oral and IV potassium repletion. Patient with some improvement on reassessment. Does use some oxygen at night and satting in the low 90s on room air at rest. Discussed with her given her complaints with a syncopal episode and hypokalemia further care here at the hospital overnight is recommended. Hospitalist contacted. Discussed the case DIAGNOSIS: Syncope and collapse, nausea, hypokalemia DISPOSITION: Hospitalist will evaluate Patient was agreeable with this plan. Past Med/Surg History Medical History Chronic obstructive pulmonary disease GERD (gastroesophageal reflux disease) History of basal cell carcinoma Hyperlipidemia Hypertension Obesity On home oxygen therapy Osteoarthritis Surgical History H/O colonoscopy H/O tubal ligation History of left cataract extraction History of repair of rotator cuff History of tooth extraction History of total hip arthroplasty Hx of right cataract extraction Status post left knee replacement (~12/2019) Family History Grandfather (Maternal) Family history of diabetes mellitus Aunt Family history of diabetes mellitus Brother Family history of diabetes mellitus Sister Family history of diabetes mellitus Father Family hx of colon cancer Social History Smoking Status: Former smoker Tobacco Type: Cigarettes Cigarettes Per Day: Quit 2015; Second Hand Exposure: No; Hx Alcohol Use: No Hx Substance Use: No Preferred Language: Chadian Communication Ability: Effective Floor Hand Required: No Beliefs That Will Affect Care: None marital status: Current Living Situation: Spouse Feels Safe at Home: Yes Assistive Devices: Walker Allergies Allergies Allergy/AdvReac Type Severity Reaction Status Date / Time oxycodone [From OxyContin] Allergy Intermediate Hives Verified 05/22/22 21:57 Home Meds Home Medications Medication Instructions Recorded Confirmed gabapentin 100 mg capsule 100 mg PO TID 02/26/18 05/22/22 hydrochlorothiazide 25 mg tablet 25 mg PO QAM 02/26/18 05/22/22 losartan 50 mg tablet 50 mg PO QAM 02/26/18 05/22/22 omeprazole 20 mg capsule,delayed 20 mg PO QAM 02/26/18 05/22/22 release lovastatin 40 mg tablet 40 mg PO PM 05/30/20 05/22/22 levocetirizine 5 mg tablet 5 mg PO QAM 07/21/21 05/22/22 montelukast 10 mg tablet 10 mg PO QAM 08/08/21 05/22/22 (Singulair) diclofenac sodium 75 mg 75 mg PO BID PRN Pain 05/22/22 05/22/22 tablet,delayed release doxycycline hyclate 100 mg capsule 100 mg PO BID 05/22/22 05/22/22 fluticasone fur. 200 mcg-umeclid 1 ea inhalation DAILY 05/22/22 05/22/22 62.5 mcg-vilant 25 mcg inhalat.powder (Trelegy Ellipta) Previous Rx's Medication Instructions Recorded albuterol sulfate 90 mcg/actuation 2 puff inhalation Q6H PRN Wheezing 11/30/19 aerosol inhaler #18 grams ipratropium 0.5 mg-albuterol 3 mg 3 ml inhalation Q8H PRN shortness 07/12/20 (2.5 mg base)/3 mL nebulization of breath or wheezing #180 mL soln tramadol 50 mg tablet 50 mg PO Q6H PRN pain #30 tabs 08/12/21 Results & Data (ED) Vital Signs Vital Signs - 24 hr 05/22/22 21:02 05/22/22 21:09 05/22/22 21:14 Temperature 36.5 C Temperature Source Temporal Artery Scan Pulse Rate 81 82 Pulse Rate [Apical] Respiratory Rate 18 Respiratory Effort / Characteristics Non-Labored Blood Pressure 116/73 Blood Pressure [Right Arm] Blood Pressure Mean 87 Blood Pressure Mean [Right Arm] Pulse Oximetry 92 94 Oxygen Delivery Method Room Air Room Air Oxygen Flow Rate Sepsis Recent Fever Within 48 Hours No Sepsis New/Unexplained Change in Mental Status N/A Sepsis Action Taken by Nursing No Action Required 05/22/22 21:28 05/22/22 21:38 05/22/22 21:40 Temperature Temperature Source Pulse Rate Pulse Rate [Apical] 77 Respiratory Rate 18 Respiratory Effort / Characteristics Blood Pressure Blood Pressure [Right Arm] 109/74 Blood Pressure Mean Blood Pressure Mean [Right Arm] 85 Pulse Oximetry 95 86 L 94 Oxygen Delivery Method Room Air Room Air Nasal Cannula Oxygen Flow Rate 2 Sepsis Recent Fever Within 48 Hours Sepsis New/Unexplained Change in Mental Status Sepsis Action Taken by Nursing 05/22/22 22:00 05/22/22 22:00 05/22/22 22:30 Temperature Temperature Source Pulse Rate 71 Pulse Rate [Apical] Respiratory Rate 14 Respiratory Effort / Characteristics Blood Pressure 120/60 126/63 Blood Pressure [Right Arm] Blood Pressure Mean 80 84 Blood Pressure Mean [Right Arm] Pulse Oximetry 98 Oxygen Delivery Method Nasal Cannula Oxygen Flow Rate 2 Sepsis Recent Fever Within 48 Hours Sepsis New/Unexplained Change in Mental Status Sepsis Action Taken by Nursing 05/22/22 22:30 Temperature Temperature Source Pulse Rate 74 Pulse Rate [Apical] Respiratory Rate 18 Respiratory Effort / Characteristics Blood Pressure Blood Pressure [Right Arm] Blood Pressure Mean Blood Pressure Mean [Right Arm] Pulse Oximetry 92 Oxygen Delivery Method Room Air Oxygen Flow Rate Sepsis Recent Fever Within 48 Hours Sepsis New/Unexplained Change in Mental Status Sepsis Action Taken by Nursing Laboratory Data 05/22/22 21:06 05/22/22 21:06 Lab Results 05/22/22 05/22/22 05/22/22 Range/Units 21:06 21:06 21:06 WBC 6.59 (4.8-10.8) K/ul RBC 3.91 L (4.20-5.40) M/uL Hgb 11.0 L (12.0-16.0) g/dl Hct 33.5 L (37.0-47.0) % MCV 85.7 (80.0-100.0) fL MCH 28.1 (25.0-34.0) pg MCHC 32.8 (32.0-36.0) g/dL RDW Std Deviation 47.2 H (36.4-46.3) fL RDW Coeff of Jc 15.0 H (11.5-14.5) % Plt Count 297 (130-400) K/uL MPV 9.7 (9.4-12.4) fL Immature Gran % (Auto) 0.2 % Neut % (Auto) 56.2 % Lymph % (Auto) 29.6 % [place] % (Auto) 8.8 % Eos % (Auto) 4.7 % Baso % (Auto) 0.5 % Neut # (Auto) 3.71 (1.40-6.50) K/uL Lymph # (Auto) 1.95 (1.2-3.4) K/uL [place] # (Auto) 0.58 (0.11-0.59) K/uL Eos # (Auto) 0.31 (0-0.50) K/uL Baso # (Auto) 0.03 (0-0.2) K/uL Immature Gran # (Auto) 0.01 (0.01-0.20) K/uL PT 11.1 (9.0-12.0) Seconds INR 1.0 (0.9-1.1) Sodium 138 (136-145) mmol/L Potassium 2.8 L (3.5-5.1) mmol/L Chloride 101 (98-107) mmol/L Carbon Dioxide 26 (21-32) mmol/L Anion Gap 11 (3-11) BUN 20 (6-23) mg/dl Creatinine 0.84 (0.6-1.2) mg/dl Est Cr Clr Drug Dosing 61.4 ml/min Est GFR ( Amer) 80.5 ml/min Est GFR (Non-Af Amer) 69.4 ml/min BUN/Creatinine Ratio 23.8 H (10-20) Glucose 104 H (70-99(Fasting)) mg/dl Calcium 9.0 (8.6-10.3) mg/dl Total Bilirubin 0.4 (0.2-1.0) mg/dl AST 18 (13-39) U/L ALT 13 (7-52) U/L Alkaline Phosphatase 100 (34-104) U/L Troponin I High Sens 3.7 (0-14) pg/ml Total Protein 6.5 (6.0-8.3) gm/dl Albumin 3.6 (3.4-5.0) gm/dl Globulin 2.9 (2.5-4.0) gm/dl Albumin/Globulin Ratio 1.2 (0.9-2) Lipase 13 (11-82) U/L SARS-CoV-2, RNA, NAAT (NEGATIVE) 05/22/22 Range/Units 21:19 WBC (4.8-10.8) K/ul RBC (4.20-5.40) M/uL Hgb (12.0-16.0) g/dl Hct (37.0-47.0) % MCV (80.0-100.0) fL MCH (25.0-34.0) pg MCHC (32.0-36.0) g/dL RDW Std Deviation (36.4-46.3) fL RDW Coeff of Jc (11.5-14.5) % Plt Count (130-400) K/uL MPV (9.4-12.4) fL Immature Gran % (Auto) % Neut % (Auto) % Lymph % (Auto) % [place] % (Auto) % Eos % (Auto) % Baso % (Auto) % Neut # (Auto) (1.40-6.50) K/uL Lymph # (Auto) (1.2-3.4) K/uL [place] # (Auto) (0.11-0.59) K/uL Eos # (Auto) (0-0.50) K/uL Baso # (Auto) (0-0.2) K/uL Immature Gran # (Auto) (0.01-0.20) K/uL PT (9.0-12.0) Seconds INR (0.9-1.1) Sodium (136-145) mmol/L Potassium (3.5-5.1) mmol/L Chloride (98-107) mmol/L Carbon Dioxide (21-32) mmol/L Anion Gap (3-11) BUN (6-23) mg/dl Creatinine (0.6-1.2) mg/dl Est Cr Clr Drug Dosing ml/min Est GFR ( Amer) ml/min Est GFR (Non-Af Amer) ml/min BUN/Creatinine Ratio (10-20) Glucose (70-99(Fasting)) mg/dl Calcium (8.6-10.3) mg/dl Total Bilirubin (0.2-1.0) mg/dl AST (13-39) U/L ALT (7-52) U/L Alkaline Phosphatase (34-104) U/L Troponin I High Sens (0-14) pg/ml Total Protein (6.0-8.3) gm/dl Albumin (3.4-5.0) gm/dl Globulin (2.5-4.0) gm/dl Albumin/Globulin Ratio (0.9-2) Lipase (11-82) U/L SARS-CoV-2, RNA, NAAT NEGATIVE (NEGATIVE) Administered Medications Potassium Chloride (K Kt / Wtr) 10 meq in 100 mls @ 100 mls/hr IV Q1H AYAN; Protocol Stop: 05/23/22 00:44 Last Admin: 05/22/22 22:51 Dose: 100 mls/hr Documented By: EMB Discontinued Medications Sodium Chloride (Nss) 500 mls @ 999 mls/hr IV .Q31M ONE Stop: 05/22/22 21:52 Last Infusion: 05/22/22 22:01 Dose: 0 mls/hr Documented By: Admin: 05/22/22 21:29 Dose: 999 mls/hr Documented By: HARLAN Ondansetron HCl (Ondansetron Inj 2 Mg/Ml 2 Ml Vial) 4 mg IV NOW STA Stop: 05/22/22 21:23 Last Admin: 05/22/22 21:29 Dose: 4 mg Documented By: HARLAN Potassium Chloride (Potassium Chloride Crtab 20 Meq Tabcr) 20 meq PO NOW STA Stop: 05/22/22 22:41 Last Admin: 05/22/22 22:51 Dose: 20 meq Documented By: EMB Discharge Plan Visit Data Chief Complaint: Chest Pain ED Provider: Mendez Hennessy Discharge Problem: Syncope, Nausea & vomiting, Hypokalemia, Abdominal pain Patient Disposition: Being Evaluated by Hospitalist Forms Stand Alone Forms: On License Of [facility] Prescriptions Prescriptions: No Action ipratropium-albuterol 0.5 mg-3 mg(2.5 mg base)/3 mL solution for nebulization 3 ml inhalation Q8H PRN (Reason: shortness of breath or wheezing) Qty: 180 2RF albuterol sulfate 90 mcg/actuation HFA aerosol inhaler 2 puff INHALATION Q6H PRN (Reason: Wheezing) Qty: 18 2RF lovastatin 40 mg tablet 40 mg PO PM losartan 50 mg Tablet 50 mg PO QAM omeprazole 20 mg Capsule,Delayed Release(Dr/Ec) 20 mg PO QAM hydrochlorothiazide 25 mg Tablet 25 mg PO QAM gabapentin 100 mg Capsule 100 mg PO TID levocetirizine 5 mg tablet 5 mg PO QAM montelukast [Singulair] 10 mg tablet 10 mg PO QAM tramadol 50 mg tablet 50 mg PO Q6H PRN (Reason: pain) Qty: 30 0RF doxycycline hyclate 100 mg capsule 100 mg PO BID Trelegy Ellipta 200-62.5-25 mcg blister with device 1 ea INHALATION DAILY diclofenac sodium 75 mg tablet,delayed release (DR/EC) 75 mg PO BID PRN (Reason: Pain) Referrals Referrals: Rafa Vargas MD [Primary Care Provider] - Syncope Qualifiers: Syncope type: unspecified Qualified Code(s): R55 - Syncope and collapse Nausea & vomiting Qualifiers: Vomiting type: unspecified Qualified Code(s): R11.2 - Nausea with vomiting, unspecified Abdominal pain Qualifiers: Abdominal location: generalized Qualified Code(s): R10.84 - Generalized abdominal pain
[2022-05-22] MEDS ORDERED: POTASSIUM CHLORIDE CRTAB 20 MEQ TABCR PO STA (22:40)
[2022-05-22] MEDS: POTASSIUM CHLORIDE / WTR 10 MEQ/100 ML PLCT IV SCH (22:51)
[2022-05-22] MEDS ORDERED: POTASSIUM CHLORIDE PWD 20 MEQ PACK PO ONE (23:30)
[2022-05-22 23:44] LABS: Magnesium 1.8 mg/dl (1.7-2.4)
[2022-05-23] MEDS ORDERED: OPTIRAY 320 500ml IV ONE (00:09)
--- NOTE | 2022-05-23 00:25 | CT Scan Report ---
Exam(s): CTA CHEST IV Amt: 102 ml optiray 320 EXAM: CT Angiography Chest With Intravenous Contrast CLINICAL HISTORY: Reason for exam: cp. TECHNIQUE: Axial computed tomographic angiography images of the chest with intravenous contrast. Automated exposure control was utilized for the study. A dose lowering technique was utilized adhering to the principles of ALARA. MIP reconstructed images were created and reviewed. COMPARISON: No relevant prior studies available. FINDINGS: Pulmonary arteries: No acute pulmonary embolism. Evaluation is limited due to suboptimal contrast bolus timing. Aorta: Atherosclerotic changes of aorta. No thoracic aortic aneurysm. Lungs: Moderate centrilobular emphysema, preferentially involving the lung apices. No mass. Pleural space: Unremarkable. No focal infiltrate, pleural effusion, or pneumothorax. Heart: Unremarkable. No cardiomegaly. No significant pericardial effusion. No evidence of RV dysfunction. Mediastinum: Small hiatal hernia. Bones/joints: No acute fracture. No dislocation. Soft tissues: Unremarkable. Lymph nodes: Unremarkable. No enlarged lymph nodes. IMPRESSION: 1. No focal infiltrate, pleural effusion, or pneumothorax. 2. No acute pulmonary embolism. Evaluation is limited due to suboptimal contrast bolus timing. Electronically signed by: Denny Patrick MD 05/23/22 00:24 AM
[2022-05-23] MEDS: POTASSIUM CHLORIDE / WTR 10 MEQ/100 ML PLCT IV SCH (00:39)
--- NOTE | 2022-05-23 01:10 | History & Physical Report ---
Date of Service May 23, 2022 Assessment & Plan (1) Chest pain: Plan: Resulting in syncope Rule out ACS given patient risk factors hx COPD, stable lung status currently hypertension, BP on the lower side hyperlipidemia on statin Rx GERD, stable on regimen hx RLS Hypokalemia secondary to home diuretic Rx Anemia, improving hemoglobin post TKR last year past tobacco abuse OBS PCU Aspirin for CAD prevention until ACS ruled out TTE, Cardiology consult Re: Recurrent chest discomfort resulting in syncope Replace potassium Hold home diuretic for now Consider holding home diuretic on discharge given borderline BP DVT prophylaxis. Lovenox subcu Full code Text document was generated using [employer] voice recognition software. It may contain grammatical or spelling errors. Kindly contact undersigned for clarification of any documentation item in question. History of Present Illness Chief Complaint: Squeezing chest sensation, syncope Primary Care Provider: Rafa Vargas MD History obtained from the patient and records. Medical history significant for COPD, hypertension, hyperlipidemia, GERD, RLS, past tobacco abuse, Last appointment July 2021 for postop following syncope right knee replacement. 3 weeks ago, patient treated by PCP for possible COPD exacerbation. Symptoms improved. 2 weeks ago, patient had some back discomfort causing some squeezing chest sensation. Transient symptoms. Patient was at [id number] practice last night when she felt recurrence of the squee zing sensation on her back causing some squeezing chest sensation. Witnessed syncopal event without seizures. Nausea and emesis on waking up. No new cough symptoms. No abdominal pain as per patient. Aspirin given by EMS en route to hospital. Patient currently without complaint. MEDICAL HISTORY: As above. SURGERIES: She has had bilateral tubal ligation, right TKR, shoulder surgery, right hip replacement FAMILY HISTORY: There is a family history of heart disease, COPD, colon cancer, and diabetes. PERSONAL AND SOCIAL HISTORY: Past tobacco abuse. No chronic intake of alcoholic beverages Allergies Allergy/AdvReac Type Severity Reaction Status Date / Time oxycodone [From OxyContin] Allergy Intermediate Hives Verified 05/22/22 21:57 Home Medications Medication Instructions Recorded Confirmed Type gabapentin 100 mg capsule 100 mg PO TID 02/26/18 05/22/22 History hydrochlorothiazide 25 mg tablet 25 mg PO QAM 02/26/18 05/22/22 History losartan 50 mg tablet 50 mg PO QAM 02/26/18 05/22/22 History omeprazole 20 mg capsule,delayed 20 mg PO QAM 02/26/18 05/22/22 History release albuterol sulfate 90 mcg/actuation 2 puff inhalation Q6H PRN Wheezing 11/30/19 05/22/22 Rx aerosol inhaler #18 grams lovastatin 40 mg tablet 40 mg PO PM 05/30/20 05/22/22 History ipratropium 0.5 mg-albuterol 3 mg 3 ml inhalation Q8H PRN shortness 07/12/20 05/22/22 Rx (2.5 mg base)/3 mL nebulization of breath or wheezing #180 mL soln levocetirizine 5 mg tablet 5 mg PO QAM 07/21/21 05/22/22 History montelukast 10 mg tablet 10 mg PO QAM 08/08/21 05/22/22 History (Singulair) tramadol 50 mg tablet 50 mg PO Q6H PRN pain #30 tabs 08/12/21 05/22/22 Rx diclofenac sodium 75 mg 75 mg PO BID PRN Pain 05/22/22 05/22/22 History tablet,delayed release doxycycline hyclate 100 mg capsule 100 mg PO BID 05/22/22 05/22/22 History fluticasone fur. 200 mcg-umeclid 1 ea inhalation DAILY 05/22/22 05/22/22 History 62.5 mcg-vilant 25 mcg inhalat.powder (Trelegy Ellipta) Past Med/Surg History Medical History Chronic obstructive pulmonary disease GERD (gastroesophageal reflux disease) History of basal cell carcinoma Hyperlipidemia Hypertension Obesity On home oxygen therapy Osteoarthritis Surgical History H/O colonoscopy H/O tubal ligation History of left cataract extraction History of repair of rotator cuff History of tooth extraction History of total hip arthroplasty Hx of right cataract extraction Status post left knee replacement (~12/2019) Family History Grandfather (Maternal) Family history of diabetes mellitus Aunt Family history of diabetes mellitus Brother Family history of diabetes mellitus Sister Family history of diabetes mellitus Father Family hx of colon cancer Social History Smoking Status: Former smoker Tobacco Type: Cigarettes Cigarettes Per Day: Quit 2016; Second Hand Exposure: No; Hx Alcohol Use: No Hx Substance Use: No Preferred Language: Albanian Communication Ability: Effective Outdoor Guide Required: No Beliefs That Will Affect Care: None marital status: Current Living Situation: Spouse Other Information That Helps Us Care for You: No Feels Safe at Home: Yes Safety Concerns: Feels Safe At This Time Assistive Devices: Glasses Assistive Devices Comment: spouse took home Review of Systems Review of Systems: As per HPI, all other systems reviewed and negative Physical Exam Physical Exam: GENERAL: Comfortable, pleasant, obese, looks younger than stated age, no respiratory distress SKIN: Normal color, warm HEENT: [place] palpebral conjunctivae, no ptosis, dry buccal mucosa NECK : Supple, short neck, no tenderness CHEST : Decreased breath sounds, no tenderness HEART : RRR, no obvious murmurs ABDOMEN: Some distention, nontender EXTREMITIES : Minimal LE swelling, no LE tenderness, no other conspicuous deformities noted NEUROLOGIC : Coherent, no facial asymmetry, no other gross focality Results & Data Results & Data Vital Signs (Past 12 Hours) Vital Signs Temp Pulse Pulse Resp BP BP Pulse Ox 05/22/22 23:00 74 15 130/72 91 05/22/22 22:30 74 18 92 05/22/22 22:30 126/63 05/22/22 22:00 71 14 98 05/22/22 22:00 120/60 05/22/22 21:40 94 05/22/22 21:38 86 L 05/22/22 21:28 77 18 109/74 95 05/22/22 21:14 82 05/22/22 21:09 94 05/22/22 21:02 36.5 C 81 18 116/73 92 O2 Del Method O2 Flow Rate 05/22/22 23:00 05/22/22 22:30 Room Air 05/22/22 22:30 05/22/22 22:00 Nasal Cannula 2 05/22/22 22:00 05/22/22 21:40 Nasal Cannula 2 05/22/22 21:38 Room Air 05/22/22 21:28 Room Air 05/22/22 21:14 05/22/22 21:09 Room Air 05/22/22 21:02 Room Air Laboratory Results Laboratory Results WBC 6.59 K/ul (4.8-10.8) 05/22/22 21:06 RBC 3.91 M/uL (4.20-5.40) L 05/22/22 21:06 Hgb 11.0 g/dl (12.0-16.0) L 05/22/22 21:06 Hct 33.5 % (37.0-47.0) L 05/22/22 21:06 MCV 85.7 fL (80.0-100.0) 05/22/22 21:06 MCH 28.1 pg (25.0-34.0) 05/22/22 21:06 MCHC 32.8 g/dL (32.0-36.0) 05/22/22 21:06 RDW Std Deviation 47.2 fL (36.4-46.3) H 05/22/22 21:06 RDW Coeff of Jc 15.0 % (11.5-14.5) H 05/22/22 21:06 Plt Count 297 K/uL (130-400) 05/22/22 21:06 MPV 9.7 fL (9.4-12.4) 05/22/22 21:06 Immature Gran % (Auto) 0.2 % 05/22/22 21:06 Neut % (Auto) 56.2 % 05/22/22 21:06 Lymph % (Auto) 29.6 % 05/22/22 21:06 [place] % (Auto) 8.8 % 05/22/22 21:06 Eos % (Auto) 4.7 % 05/22/22 21:06 Baso % (Auto) 0.5 % 05/22/22 21:06 Neut # (Auto) 3.71 K/uL (1.40-6.50) 05/22/22 21:06 Lymph # (Auto) 1.95 K/uL (1.2-3.4) 05/22/22 21:06 [place] # (Auto) 0.58 K/uL (0.11-0.59) 05/22/22 21:06 Eos # (Auto) 0.31 K/uL (0-0.50) 05/22/22 21:06 Baso # (Auto) 0.03 K/uL (0-0.2) 05/22/22 21:06 Immature Gran # (Auto) 0.01 K/uL (0.01-0.20) 05/22/22 21:06 PT 11.1 Seconds (9.0-12.0) 05/22/22 21:06 INR 1.0 (0.9-1.1) 05/22/22 21:06 Sodium 138 mmol/L (136-145) 05/22/22 21:06 Potassium 2.8 mmol/L (3.5-5.1) L 05/22/22 21:06 Chloride 101 mmol/L (98-107) 05/22/22 21:06 Carbon Dioxide 26 mmol/L (21-32) 05/22/22 21:06 Anion Gap 11 (3-11) 05/22/22 21:06 BUN 20 mg/dl (6-23) 05/22/22 21:06 Creatinine 0.84 mg/dl (0.6-1.2) 05/22/22 21:06 Est Cr Clr Drug Dosing 61.4 ml/min 05/22/22 21:06 Est GFR ( Amer) 80.5 ml/min 05/22/22 21:06 Est GFR (Non-Af Amer) 69.4 ml/min 05/22/22 21:06 BUN/Creatinine Ratio 23.8 (10-20) H 05/22/22 21:06 Glucose 104 mg/dl (70-99(Fasting)) H 05/22/22 21:06 Calcium 9.0 mg/dl (8.6-10.3) 05/22/22 21:06 Magnesium 1.8 mg/dl (1.7-2.4) 05/22/22 21:06 Total Bilirubin 0.4 mg/dl (0.2-1.0) 05/22/22 21:06 AST 18 U/L (13-39) 05/22/22 21:06 ALT 13 U/L (7-52) 05/22/22 21:06 Alkaline Phosphatase 100 U/L (34-104) 05/22/22 21:06 Troponin I High Sens 3.7 pg/ml (0-14) 05/22/22 21:06 Total Protein 6.5 gm/dl (6.0-8.3) 05/22/22 21:06 Albumin 3.6 gm/dl (3.4-5.0) 05/22/22 21:06 Globulin 2.9 gm/dl (2.5-4.0) 05/22/22 21:06 Albumin/Globulin Ratio 1.2 (0.9-2) 05/22/22 21:06 Lipase 13 U/L (11-82) 05/22/22 21:06 SARS-CoV-2, RNA, NAAT NEGATIVE (NEGATIVE) 05/22/22 21:19 Impressions Chest CTA 05/22/22 23:47 Exam(s): CTA CHEST IV Amt: 102 ml optiray 320 EXAM: CT Angiography Chest With Intravenous Contrast CLINICAL HISTORY: Reason for exam: cp. TECHNIQUE: Axial computed tomographic angiography images of the chest with intravenous contrast. Automated exposure control was utilized for the study. A dose lowering technique was utilized adhering to the principles of ALARA. MIP reconstructed images were created and reviewed. COMPARISON: No relevant prior studies available. FINDINGS: Pulmonary arteries: No acute pulmonary embolism. Evaluation is limited due to suboptimal contrast bolus timing. Aorta: Atherosclerotic changes of aorta. No thoracic aortic aneurysm. Lungs: Moderate centrilobular emphysema, preferentially involving the lung apices. No mass. Pleural space: Unremarkable. No focal infiltrate, pleural effusion, or pneumothorax. Heart: Unremarkable. No cardiomegaly. No significant pericardial effusion. No evidence of RV dysfunction. Mediastinum: Small hiatal hernia. Bones/joints: No acute fracture. No dislocation. Soft tissues: Unremarkable. Lymph nodes: Unremarkable. No enlarged lymph nodes. IMPRESSION: 1. No focal infiltrate, pleural effusion, or pneumothorax. 2. No acute pulmonary embolism. Evaluation is limited due to suboptimal contrast bolus timing. Electronically signed by: Denny Patrick MD 05/23/22 00:24 AM Diagnostic Findings EKG as per my interpretation :rate 80, NSR, normal axis, no ischemia
[2022-05-23] MEDS ORDERED: MELATONIN 3 MG TAB PO STA (01:54)
[2022-05-23] MEDS ORDERED: MELATONIN 3 MG TAB PO PRN (01:54)
[2022-05-23] MEDS ORDERED: MAGNESIUM SULFATE / D5W 1 GM/100 ML BAG IV ONE (02:00)
[2022-05-23] MEDS ORDERED: NSS + 20MEQ KCL 20 MEQ/1,000 ML BAG IV ONE (02:00)
[2022-05-23] MEDS ORDERED: traMADol HCL 50 MG TABLET PO PRN (02:28)
[2022-05-23] MEDS ORDERED: ACETAMINOPHEN 325 MG TAB PO PRN (02:28)
[2022-05-23] MEDS ORDERED: PROMETHAZINE HCL 12.5 MG in SODIUM CHLORIDE 0.9% 50 ML IV PRN (02:28)
[2022-05-23] MEDS ORDERED: NITROGLYCERIN SL 0.4 MG/TAB TAB SL PRN (02:28)
[2022-05-23] MEDS ORDERED: DICLOFENAC SODIUM 75 MG TABCR PO PRN (02:28)
[2022-05-23] MEDS ORDERED: POTASSIUM CHLORIDE PWD 20 MEQ PACK PO ONE (03:00)
[2022-05-23 03:01] LABS: Partial Thromboplastin Ratio 1.1; Partial Thromboplastin Time 29.4 Seconds (21.0-31.0)
[2022-05-23 05:01] LABS: Basophils # (auto) 0.03 K/uL (0-0.2); Basophils % (auto) 0.5 %; Eosinophils # (auto) 0.23 K/uL (0-0.50); Eosinophils % (auto) 3.9 %; Hematocrit (blood only) 29.9 % (37.0-47.0); Hemoglobin 9.9 g/dl (12.0-16.0); Immature Granulocytes # (auto) 0.02 K/uL (0.01-0.20); Immature Granulocytes % (auto) 0.3 %; Lymphocytes # (auto) 1.58 K/uL (1.2-3.4); Lymphocytes % (auto) 26.6 %; Mean Corpuscular Hgb Conc 33.1 g/dL (32.0-36.0); Mean Corpuscular Volume 84.5 fL (80.0-100.0); Mean Platelet Volume 9.5 fL (9.4-12.4); Monocytes # (auto) 0.53 K/uL (0.11-0.59); Monocytes % (auto) 8.9 %; Neutrophils # (auto) 3.56 K/uL (1.40-6.50); Neutrophils % (auto) 59.8 %; Platelet Count 264 K/uL (130-400); RDW Coefficient of Variation 14.7 % (11.5-14.5); RDW Standard Deviation 45.8 fL (36.4-46.3); Red Blood Count 3.54 M/uL (4.20-5.40); White Blood Count 5.95 K/ul (4.8-10.8)
[2022-05-23 05:22] LABS: BUN Creatinine Ratio 19.7 (10-20); Calcium 8.6 mg/dl (8.6-10.3); Chol HDL Ratio 5.7 (0-5); Creatinine Clr Calc Pharmacy 72.6 ml/min; Est GFR (African American) 98.6 ml/min; Est GFR (Non-African American) 85.1 ml/min
--- NOTE | 2022-05-23 07:11 | XRay Report ---
XR chest 1V portable HISTORY: Chest pain, nonspecific COMPARISON: 08/12/2021. FINDINGS: No pneumothorax. No pleural effusions. The cardiac silhouette remains mildly enlarged. Ther e are calcifications within the aortic knob. There is mild central pulmonary vascular congestion with out overt edema. No new focal lung consolidations to suggest a pneumonia. No acute fractures. IMPRESSION: Mild central pulmonary vascular congestion without overt edema. ACT 112: Negative or not required by law. Electronically signed by: Myles Nolasco M.D. 05/23/2022 7:10 AM
[2022-05-23 07:58] LABS: Appearance Urine Clear (Clear); Bilirubin Urine Negative (Negative); Blood Urine Negative (Negative); Color Urine Yellow; Glucose Urine UA Negative (Negative); Ketones Urine Negative (Negative); Leukocyte Esterase Urine Negative (Negative); Nitrite Urine Negative (Negative); Protein Urine Negative (Negative); Specific Gravity Urine 1.028 (1.000-1.030); Urobilinogen Urine Negative (Negative); pH Urine 5.5 (4.5-7.5)
[2022-05-23] MEDS ORDERED: LOSARTAN POTASSIUM 50 MG TAB PO SCH (09:00)
[2022-05-23] MEDS ORDERED: MONTELUKAST SODIUM 10 MG TABLET PO SCH (09:00)
[2022-05-23] MEDS ORDERED: FLUTICASONE FUROATE 200MCG 14 PUFFS/INHALER INH SCH (09:00)
[2022-05-23] MEDS ORDERED: PANTOprazole 40 MG TAB PO SCH (09:00)
[2022-05-23] MEDS ORDERED: UMECLIDINIUM/VILANTEROL 62.5/25MCG 7 PUFFS/INHALER INH SCH (09:00)
[2022-05-23] MEDS ORDERED: CETIRIZINE HCL 10 MG TABLET PO SCH (09:00)
[2022-05-23] MEDS ORDERED: ENOXAPARIN INJ 40 MG/0.4 ML SYR SQ SCH (09:00)
[2022-05-23] MEDS ORDERED: ASPIRIN 81 MG ECTAB PO SCH (09:00)
[2022-05-23] MEDS: GABAPENTIN 100 MG CAP PO SCH ×2 (09:25→14:31)
[2022-05-23] MEDS ORDERED: METOPROLOL TARTRATE 1 MG/ML VIAL IV ONE (09:49)
[2022-05-23] MEDS ORDERED: ATROPINE SULFATE 0.1 MG/ML 10ML SYR IV ONE (09:49)
[2022-05-23] MEDS ORDERED: DOBUTamine HCL 12.5 MG/ML 20 ML VIAL IV ONE (09:50)
--- NOTE | 2022-05-23 11:23 | Cardiology Consultation ---
Date of Consultation May 23, 2022 Assessment & Plan (1) Chest pain: (2) Syncope: (3) Nausea & vomiting: (4) Hypokalemia: (5) COPD with emphysema: (6) Former smoker: Plan 72-year-old woman that presented to [facility] emergency department on 05/22/2022 with reports of chest discomfort and syncope No arrhythmias on telemetry Resting echocardiogram unchanged Dobutamine stress echocardiogram was nonischemic with no inducible arrhythmias Recommend outpatient 1 week Zio patch monitor and follow-up with cardiology once report is available No medication changes from a cardiac standpoint recommended Okay to discharge to home from a cardiac standpoint History of Present Illness Attending Physician: Shlomo Ivy MD Allergies Allergy/AdvReac Type Severity Reaction Status Date / Time oxycodone [From OxyContin] Allergy Intermediate Hives Verified 05/22/22 21:57 Home Medications Medication Instructions Recorded Confirmed Type gabapentin 100 mg capsule 100 mg PO TID 02/26/18 05/22/22 History hydrochlorothiazide 25 mg tablet 25 mg PO QAM 02/26/18 05/22/22 History losartan 50 mg tablet 50 mg PO QAM 02/26/18 05/22/22 History omeprazole 20 mg capsule,delayed 20 mg PO QAM 02/26/18 05/22/22 History release albuterol sulfate 90 mcg/actuation 2 puff inhalation Q6H PRN Wheezing 11/30/19 05/22/22 Rx aerosol inhaler #18 grams lovastatin 40 mg tablet 40 mg PO PM 05/30/20 05/22/22 History ipratropium 0.5 mg-albuterol 3 mg 3 ml inhalation Q8H PRN shortness 07/12/20 05/22/22 Rx (2.5 mg base)/3 mL nebulization of breath or wheezing #180 mL soln levocetirizine 5 mg tablet 5 mg PO QAM 07/21/21 05/22/22 History montelukast 10 mg tablet 10 mg PO QAM 08/08/21 05/22/22 History (Singulair) tramadol 50 mg tablet 50 mg PO Q6H PRN pain #30 tabs 08/12/21 05/22/22 Rx diclofenac sodium 75 mg 75 mg PO BID PRN Pain 05/22/22 05/22/22 History tablet,delayed release doxycycline hyclate 100 mg capsule 100 mg PO BID 05/22/22 05/22/22 History fluticasone fur. 200 mcg-umeclid 1 ea inhalation DAILY 05/22/22 05/22/22 History 62.5 mcg-vilant 25 mcg inhalat.powder (Trelegy Ellipta) Patient History Medical History Chronic obstructive pulmonary disease GERD (gastroesophageal reflux disease) History of basal cell carcinoma Hyperlipidemia Hypertension Obesity On home oxygen therapy Osteoarthritis Surgical History H/O colonoscopy H/O tubal ligation History of left cataract extraction History of repair of rotator cuff History of tooth extraction History of total hip arthroplasty Hx of right cataract extraction Status post left knee replacement (~12/2019) Family History Grandfather (Maternal) Family history of diabetes mellitus Aunt Family history of diabetes mellitus Brother Family history of diabetes mellitus Sister Family history of diabetes mellitus Father Family hx of colon cancer Social History Smoking Status: Former smoker Tobacco Type: Cigarettes Cigarettes Per Day: Quit 2015; Second Hand Exposure: No; Hx Alcohol Use: No Hx Substance Use: No Preferred Language: Swedish Communication Ability: Effective Mechanic Recovery Required: No Beliefs That Will Affect Care: None marital status: Current Living Situation: Spouse Other Information That Helps Us Care for You: No Feels Safe at Home: Yes Safety Concerns: Feels Safe At This Time Assistive Devices: Glasses Assistive Devices Comment: spouse took home Results & Data Vital Signs (Past 12 Hours) Vital Signs Temp Pulse Pulse Resp BP BP Pulse Ox 05/23/22 10:32 76 19 107/62 95 05/23/22 07:45 115/58 L 05/23/22 07:21 72 13 92 05/23/22 07:21 111/62 05/23/22 07:00 71 26 H 99 05/23/22 06:00 64 14 97 05/23/22 05:35 114/61 05/23/22 05:35 70 17 97 05/23/22 08:30 82 18 130/61 97 05/23/22 07:44 36.5 C 69 19 115/58 L 94 05/23/22 07:26 73 15 111/62 95 05/23/22 07:22 73 15 111/62 95 05/23/22 06:52 68 05/23/22 05:00 62 20 114/61 98 05/23/22 04:31 05/23/22 04:31 05/23/22 01:30 77 16 95 05/23/22 01:00 85 15 92 05/23/22 00:39 128/81 05/23/22 00:39 87 19 93 05/23/22 00:30 86 13 98 05/23/22 00:12 92 05/22/22 23:30 77 15 90 05/22/22 23:30 122/75 Pulse Ox O2 Del Method O2 Del Method O2 Flow Rate O2 Flow Rate 05/23/22 10:32 Room Air 05/23/22 07:45 05/23/22 07:21 05/23/22 07:21 05/23/22 07:00 05/23/22 06:00 05/23/22 05:35 05/23/22 05:35 05/23/22 08:30 Room Air 05/23/22 07:44 Room Air 05/23/22 07:26 Room Air 05/23/22 07:22 Room Air 05/23/22 06:52 05/23/22 05:00 Nasal Cannula 2 05/23/22 04:31 Nasal Cannula 2 05/23/22 04:31 95 Nasal Cannula 2 05/23/22 01:30 05/23/22 01:00 05/23/22 00:39 05/23/22 00:39 05/23/22 00:30 05/23/22 00:12 05/22/22 23:30 05/22/22 23:30 (2) Syncope Syncope type: unspecified Qualified Code(s): R55 - Syncope and collapse (3) Nausea & vomiting Vomiting type: unspecified Qualified Code(s): R11.2 - Nausea with vomiting, unspecified
--- NOTE | 2022-05-23 13:25 | Electrocardiogram Report ---
Test Reason : Blood Pressure : / mmHG Vent. Rate : 082 BPM Atrial Rate : 082 BPM P-R Int : 164 ms QRS Dur : 088 ms QT Int : 408 ms P-R-T Axes : 000 022 053 degrees QTc Int : 476 ms Normal sinus rhythm Poor R wave progression, consider anterior [place] vs. lead placement vs. LVH Abnormal ECG When compared with ECG of 13-AUG-2021 07:46, No significant change was found Confirmed by Vincent Pinto ([id number]) on 05/23/2022 1:25:22 PM Referred By: REFERRED SELF Confirmed By:Vincent Pinto
--- NOTE | 2022-05-23 15:11 | Discharge Summary ---
Date of Service May 23, 2022 Admission HPI Per Admitting Provider History obtained from the patient and records. Medical history significant for COPD, hypertension, hyperlipidemia, GERD, RLS, past tobacco abuse, Last appointment July 2021 for postop following syncope right knee replacement. 3 weeks ago, patient treated by PCP for possible COPD exacerbation. Symptoms improved. 2 weeks ago, patient had some back discomfort causing some squeezing chest sensation. Transient symptoms. Patient was at [email or web address] practice last night when she felt recurrence of the squeezing sensation on her back causing some squeezing chest sensation. Witnessed syncopal event without seizures. Nausea and emesis on waking up. No new cough symptoms. No abdominal pain as per patient. Aspirin given by EMS en route to hospital. Patient currently without complaint. MEDICAL HISTORY: As above. SURGERIES: She has had bilateral tubal ligation, right TKR, shoulder surgery, right hip replacement FAMILY HISTORY: There is a family history of heart disease, COPD, colon cancer, and diabetes. PERSONAL AND SOCIAL HISTORY: Past tobacco abuse. No chronic intake of alcoholic beverages Admission Exam Per Admitting Provider GENERAL: Comfortable, pleasant, obese, looks younger than stated age, no respiratory distress SKIN: Normal color, warm HEENT: [place] palpebral conjunctivae, no ptosis, dry buccal mucosa NECK : Supple, short neck, no tenderness CHEST : Decreased breath sounds, no tenderness HEART : RRR, no obvious murmurs ABDOMEN: Some distention, nontender EXTREMITIES : Minimal LE swelling, no LE tenderness, no other conspicuous deformities noted NEUROLOGIC : Coherent, no facial asymmetry, no other gross focality Principal Diagnosis Syncope, likely vasovagal episode Hypokalemia Discharge Exam GENERAL: WD/WN F in no acute distress SKIN: Normal color, warm HEENT: [place] palpebral conjunctivae, no ptosis NECK : Supple CHEST : CTAB no wheezing, or rhonchi HEART : RRR, no obvious murmurs ABDOMEN: Some distention, nontender, soft, + bowel sounds EXTREMITIES : Minimal LE swelling, no LE tenderness, moves extremities NEUROLOGIC : awake alert oriented, answering appropriately, no facial asymmetry, moves extremities Discharge Data Allergies Allergy/AdvReac Type Severity Reaction Status Date / Time oxycodone [From OxyContin] Allergy Intermediate Hives Verified 05/22/22 21:57 Consultations 05/22/22 22:56 ED Decision to Admit Stat 05/23/22 02:28 Consult Cardiology Routine Ordered Studies 05/22/22 23:47 CT angio chest PE protocol Stat FINDINGS: Pulmonary arteries: No acute pulmonary embolism. Evaluation is limited due to suboptimal contrast bolus timing. Aorta: Atherosclerotic changes of aorta. No thoracic aortic aneurysm. Lungs: Moderate centrilobular emphysema, preferentially involving the lung apices. No mass. Pleural space: Unremarkable. No focal infiltrate, pleural effusion, or pneumothorax. Heart: Unremarkable. No cardiomegaly. No significant pericardial effusion. No evidence of RV dysfunction. Mediastinum: Small hiatal hernia. Bones/joints: No acute fracture. No dislocation. Soft tissues: Unremarkable. Lymph nodes: Unremarkable. No enlarged lymph nodes. IMPRESSION: 1. No focal infiltrate, pleural effusion, or pneumothorax. 2. No acute pulmonary embolism. Evaluation is limited due to suboptimal contrast bolus timing. Hospital Course (1) Chest pain: Resulting in syncope, possible vasovagal event Ruled out ACS given patient risk factors Echo obtained -normal LV chamber size and wall thickness. Normal LV systolic function, EF 60 to 65%. No segmental LV wall motion abnormalities are noted. Grade 1 diastolic dysfunction. Aortic valve sclerosis moderate, without significant aortic valvular stenosis. Stress echo obtained -nonischemic dobutamine stress echo. No arrhythmias. Normal heart rate and blood pressure response to dobutamine. Cardiology consulted No arrhythmias on telemetry Resting echocardiogram unchanged Dobutamine stress echocardiogram was nonischemic with no inducible arrhythmias Recommend outpatient 1 week Zio patch monitor and follow-up with cardiology once report is available hx COPD, stable lung status currently hypertension, BP on the lower side , stopped HCTZ hyperlipidemia on statin Rx GERD, stable on regimen Anemia, improving hemoglobin post TKR last year hx RLS Hypokalemia secondary to home diuretic Rx Replace potassium Given borderline BP and hypokalemia, stopped HCTZ on discharge. Continue losartan. Started a small dose potassium supplement. Recommend recheck BMP at next PCP appointment Total Time Total Time Spent Total Time Spent (In Minutes): 40 Discharge Plan Discharge Items Patient Disposition: Home - Self-Care Reason For Visit: TOXIMIA Discharge Diagnosis: Syncope, likely vasovagal episode Hypokalemia Activity: Per Instructions section Non-emergency contact: Primary Care Provider Call non-emergency contact if: you have any medication questions and your symptoms worsen Follow-up/Referrals: Rafa Vargas MD [Primary Care Provider] - (Date & Time 05/30/2022 2:40 PM Provider Rafa Vargas MD Department Family Practice [facility] ) Diet: Regular Addtl Attending Provider Instructions: Follow up with the primary care provider within 1 week, the appointment was scheduled for you for May 30. Monitor your blood pressure at home, and write down your numbers. Discuss your numbers with your primary care provider. STOP taking hydrochlorothiazide. Take potassium supplement, start taking it on Saturday. It is important that you have a blood work done, and your potassium level checked at your next PCP appointment. Recommend outpatient 1 week Zio patch monitor and follow-up with cardiology once report is available. Pending Studies at Discharge: No Stand-Alone Forms: My [facility] [employer], Smoking Cessation Medications and DC Order Prescriptions: New potassium chloride 10 mEq capsule, extended release 10 meq PO DAILY Qty: 7 0RF Continued ipratropium-albuterol 0.5 mg-3 mg(2.5 mg base)/3 mL solution for nebulization 3 ml inhalation Q8H PRN (Reason: shortness of breath or wheezing) Qty: 180 2RF albuterol sulfate 90 mcg/actuation HFA aerosol inhaler 2 puff INHALATION Q6H PRN (Reason: Wheezing) Qty: 18 2RF lovastatin 40 mg tablet 40 mg PO PM losartan 50 mg Tablet 50 mg PO QAM omeprazole 20 mg Capsule,Delayed Release(Dr/Ec) 20 mg PO QAM gabapentin 100 mg Capsule 100 mg PO TID levocetirizine 5 mg tablet 5 mg PO QAM montelukast [Singulair] 10 mg tablet 10 mg PO QAM tramadol 50 mg tablet 50 mg PO Q6H PRN (Reason: pain) Qty: 30 0RF doxycycline hyclate 100 mg capsule 100 mg PO BID Trelegy Ellipta 200-62.5-25 mcg blister with device 1 ea INHALATION DAILY diclofenac sodium 75 mg tablet,delayed release (DR/EC) 75 mg PO BID PRN (Reason: Pain) Discontinued hydrochlorothiazide 25 mg Tablet 25 mg PO QAM Discharge Orders: Discharge Order (Routine); Ordered 05/23/22 Ordered By: Shlomo Ivy Admission Data Admit Date/Time: 05/23/22 01:45 Attending Provider: Shlomo Ivy Admit Provider: Robin Doherty Primary Care Provider: Rafa Vargas Other Providers: Devin Hernandez ; Smitha Donald ; Israel Rhodes ; Attila Spence ; Alexsander Parikh ; Mulugeta Bolivar ; Juan M Evans ; Omid Salter ; Maribell Franks ; Sharon Gonzalez ; Smitha Mcdermott ; Rikki Reese ; Lucita Holly ; Robin Doherty
[2022-05-23] MEDS ORDERED: LOVASTATIN 20 MG TAB PO SCH (21:00)
== END 2022-05-23 15:39 | disposition home or self-care (01) | DRG 312 ==
LOC: ED 20:52 → SUATTDRO 05-23 00:02 → EDINP 05-23 00:02

== ENCOUNTER 2022-12-30 07:40 | Inpatient (IN) ==
[2022-12-30] MEDS ORDERED: RAPID SEQUENCE INDUCTION BAG ONE (07:43)
[2022-12-30] MEDS ORDERED: MIDAZOLAM HCL 1 MG/ML 2ML VIAL ONE (08:03)
[2022-12-30] MEDS ORDERED: HEPARIN (PORCINE) 1000 UNIT/ML 10 ML (CATH LAB USE ONLY) ONE (08:03)
[2022-12-30] MEDS ORDERED: ONDANSETRON INJ 2 MG/ML 2 ML VIAL ONE ×2 (08:04→08:22)
[2022-12-30] MEDS ORDERED: NITROGLYCERIN/D5W 100MCG/ML 20ML SYR ONE (08:04)
[2022-12-30] MEDS ORDERED: niCARdipine HCL INJ 2.5 MG/ML 10 ML AMP ONE (08:04)
[2022-12-30] MEDS ORDERED: fentaNYL citrate PF 100 MCG/2 ML VIAL ONE (08:04)
[2022-12-30 08:06] LABS: iSTAT Creatinine 0.8 mg/dl (0.6-1.3); iSTAT Hemoglobin 13.3 g/dl (12.0-16.0); iSTAT Ionized Calcium 1.22 mmol/l (1.12-1.32); iSTAT Potassium 4.2 mmol/L (3.3-5.0)
[2022-12-30 08:17] LABS: Base Excess VBG -0.7 mEq/L; HCO3 VBG 26 mmol/L; Oxygen Saturation VBG 92.1 %; PCO2 VBG 49 mmHg (38-50); PO2 VBG 65 mmHg; pH VBG 7.33 (7.36-7.41)
[2022-12-30 08:21] LABS: Basophils # (auto) 0.03 K/uL (0.00-0.20); Basophils % (auto) 0.3 %; Eosinophils # (auto) 0.48 K/uL (0.00-0.50); Hematocrit (blood only) 39.6 % (37.0-47.0); Hemoglobin 12.9 g/dl (12.0-16.0); Immature Granulocytes # (auto) 0.06 K/uL (0.01-0.20); Immature Granulocytes % (auto) 0.6 %; Lymphocytes # (auto) 3.31 K/uL (1.20-3.40); Lymphocytes % (auto) 34.7 %; Mean Corpuscular Hemoglobin 29.5 pg (25.0-34.0); Mean Corpuscular Hgb Conc 32.6 g/dL (32.0-36.0); Mean Corpuscular Volume 90.6 fL (80.0-100.0); Mean Platelet Volume 10.4 fL (9.4-12.4); Monocytes # (auto) 0.59 K/uL (0.11-0.59); Monocytes % (auto) 6.2 %; Neutrophils # (auto) 5.07 K/uL (1.40-6.50); Neutrophils % (auto) 53.2 %; Platelet Count 260 K/uL (130-400); RDW Coefficient of Variation 13.7 % (11.5-14.5); RDW Standard Deviation 45.9 fL (36.4-46.3); Red Blood Count 4.37 M/uL (4.20-5.40); White Blood Count 9.54 K/ul (4.8-10.8)
--- NOTE | 2022-12-30 08:25 | Critical Care Consultation ---
Date of Consultation December 30, 2022 Assessment & Plan (1) Symptomatic bradycardia: Reason Critically Ill: 72-year-old female with symptomatic bradycardia requiring intermittent demand pacing PLAN: Neuro: Chronic pain secondary to arthritis -Continue tramadol as needed Resp: Chronic oxygen dependent COPD with emphysema -2 L oxygen at baseline CV: Hypertension Paroxysmal A-fib -June cardiology notes indicate patient was started on Eliquis, patient subsequently discontinued, this has not been to communicated to care providers at this time Symptomatic bradycardia -No evidence of ischemia on EKG, I think atropine as well as dobutamine could be used for medications -To be evaluated by cardiology Fluids/Renal: History of hypokalemia -Electrolytes pending: POC potassium within normal limits ID: Check Lyme titer GI/Nutrition: Nausea and vomiting -Zofran as needed Heme: Meets indication for systemic anticoagulation -Defer to cardiology regarding joint medical decision making and risk benefit analysis given patient's lifestyle and desires DVT prophylaxis: SCDs Endocrine: ICU hyperglycemia protocol Vascular access: Peripheral IVs Code Status: Full code Disposition: ICU (2) Syncope: (3) Nonsustained monomorphic ventricular tachycardia: (4) Chronic respiratory failure with hypoxia: (5) COPD (chronic obstructive pulmonary disease): (6) COPD with emphysema: (7) Paroxysmal A-fib: Supervising Physician Co-Signing Physician Notes I have personally spent 40 minutes of critical care time in the direct management of this patient. This is a life/limb threatening event. This includes time spent evaluating patient, direct bedside care, chart review, placing orders, interpretation of diagnostic studies, discussion with consultants, patient, and/or family members regarding treatment decisions, as well as other required patient management activities. This time is exclusive of all separately billable procedures, and teaching time and separate from and in addition to any other critical care service time. History of Present Illness Reason for Consultation: Symptomatic bradycardia History of Present Illness Patient is a 72-year-old female with a significant past medical history of paroxysmal A-fib who took herself off Eliquis approximately 1 month ago secondary to not being able to take her arthritis meds, she was brought in by EMS for multiple syncopal episodes. EMS reports a short run of nonsustained ventricular tachycardia as well as bradycardia. In the emergency department she was being paced at 80 bpm with 60 mA. . The pacer was turned down to a rate of 60 and 40 mA. She had effective capture at that point when she had an episode of emesis and they called. She was given half a milligram of atropine which had a good response to the patient's heart rate. During this time her blood pressure remained 120 or greater. She follows up with [facility] as a primary care physician has been seen by their cardiology group. She reports that she stopped smoking in 2016 about the time that she was diagnosed with COPD and started on oxygen. Her prior manager reporting was Dane rosado and she has not seen pulmonary in greater than 1 year. The emergency department activated the cardiac cath team, cardiology is on his way to evaluate bedside for evaluation and possible temporary pacemaker placement Allergies Allergy/AdvReac Type Severity Reaction Status Date / Time oxycodone [From OxyContin] Allergy Intermediate Hives Verified 06/20/22 13:58 Home Medications Medication Instructions Recorded Confirmed Type gabapentin 100 mg capsule 100 mg PO TID 02/26/18 05/22/22 History losartan 50 mg tablet 50 mg PO QAM 02/26/18 05/22/22 History omeprazole 20 mg capsule,delayed 20 mg PO QAM 02/26/18 05/22/22 History release albuterol sulfate 90 mcg/actuation 2 puff inhalation Q6H PRN Wheezing 11/30/19 05/22/22 Rx aerosol inhaler #18 grams lovastatin 40 mg tablet 40 mg PO PM 05/30/20 05/22/22 History ipratropium 0.5 mg-albuterol 3 mg 3 ml inhalation Q8H PRN shortness 07/12/20 05/22/22 Rx (2.5 mg base)/3 mL nebulization of breath or wheezing #180 mL soln levocetirizine 5 mg tablet 5 mg PO QAM 07/21/21 05/22/22 History montelukast 10 mg tablet 10 mg PO QAM 08/08/21 05/22/22 History (Singulair) tramadol 50 mg tablet 50 mg PO Q6H PRN pain #30 tabs 08/12/21 05/22/22 Rx diclofenac sodium 75 mg 75 mg PO BID PRN Pain 05/22/22 05/22/22 History tablet,delayed release doxycycline hyclate 100 mg capsule 100 mg PO BID 05/22/22 05/22/22 History fluticasone fur. 200 mcg-umeclid 1 ea inhalation DAILY 05/22/22 05/22/22 History 62.5 mcg-vilant 25 mcg inhalat.powder (Trelegy Ellipta) potassium chloride 10 mEq 10 meq PO DAILY #7 caps 05/23/22 Rx capsule,extended release Patient History Medical History (Updated 12/30/22 @ 08:25 by Antonio Coyle, DO) COPD (chronic obstructive pulmonary disease) On home oxygen therapy 2 LPM at Obesity History of basal cell carcinoma back and forehead (was removed) Osteoarthritis GERD (gastroesophageal reflux disease) Well controlled and stable with medication Chronic obstructive pulmonary disease - Well controlled per pt - Did finish recent Z pack and prednisone (will finish 07/27/21)- questionable COPD exacerbation- pt feels secondary to allergies - wheezing improved -Follows with Dinora Zelaya (PCP) for lung issues Hyperlipidemia Hypertension Surgical History (System 06/20/22 @ 13:58 by Tamiko Glass) Status post left knee replacement (~12/2019) Left TKA (01/11/20): SAB at L3/4 (x1 attempt) + PNB at [facility]. No issues per post-op anesthesia progress note. History of left cataract extraction Hx of right cataract extraction History of tooth extraction all teeth History of total hip arthroplasty Right TALYA: 03/28/18: SAB x 2 attempts (L3-L4 with 1 attempt at L4-L5) at [facility] H/O colonoscopy H/O tubal ligation History of repair of rotator cuff LEFT Family History (System 06/20/22 @ 13:58 by Tamiko Glass) Grandfather (Maternal) Family history of diabetes mellitus Aunt Family history of diabetes mellitus Brother Family history of diabetes mellitus Sister Family history of diabetes mellitus Father Family hx of colon cancer Social History (System 06/20/22 @ 13:58 by Tamiko Glass) Smoking Status: Unknown if ever smoked Tobacco Type: Cigarettes Cigarettes Per Day: Quit 2015; Second Hand Exposure: No; Do You Dip or Chew Tobacco: No; Hx Alcohol Use: No Hx Substance Use: No Preferred Language: Kinyarwanda Communication Ability: Effective [employer] 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 Reports occasional dizziness not currently dizzy. There is some nausea and she is vomited twice in the emergency department. Physical Exam Physical Exam: General: Alert. nontoxic. Skin: Warm, dry, Head: Atraumatic Ears, nose, mouth and throat: airway patent Cardiovascular: Normal peripheral perfusion Respiratory: no respiratory distress Gastrointestinal: Non distended Musculoskeletal: No deformity Results & Data Results & Data Vital Signs (Past 12 Hours) Vital Signs Pulse Pulse Resp BP BP Pulse Ox O2 Del Method 12/30/22 08:00 99 H 20 178/91 H 97 Nasal Cannula 12/30/22 07:59 72 16 196/110 H 96 Nasal Cannula 12/30/22 07:53 80 12/30/22 07:45 Nasal Cannula 12/30/22 07:42 80 90 Room Air 12/30/22 07:42 80 24 122/54 L 90 Nasal Cannula O2 Flow Rate 12/30/22 08:00 6 12/30/22 07:59 2 12/30/22 07:53 12/30/22 07:45 2 12/30/22 07:42 2 12/30/22 07:42 2 Critical Care Results & Data Vital Signs (Past 12 Hours) Vital Signs Pulse Pulse Resp BP BP Pulse Ox O2 Del Method 12/30/22 08:14 97 H 16 164/126 H 95 Nasal Cannula 12/30/22 08:00 99 H 20 178/91 H 97 Nasal Cannula 12/30/22 07:59 72 16 196/110 H 96 Nasal Cannula 12/30/22 07:53 80 12/30/22 07:45 Nasal Cannula 12/30/22 07:42 80 90 Room Air 12/30/22 07:42 80 24 122/54 L 90 Nasal Cannula O2 Flow Rate 12/30/22 08:14 2 12/30/22 08:00 6 12/30/22 07:59 2 12/30/22 07:53 12/30/22 07:45 2 12/30/22 07:42 2 12/30/22 07:42 2 Lab & Micro Results (Past 24 Hours) RBC 4.37 M/uL (4.20-5.40) 12/30/22 WBC 9.54 K/ul (4.8-10.8) 12/30/22 Hgb 12.9 g/dl (12.0-16.0) 12/30/22 Hct 39.6 % (37.0-47.0) 12/30/22 MCV 90.6 fL (80.0-100.0) 12/30/22 MCH 29.5 pg (25.0-34.0) 12/30/22 MCHC 32.6 g/dL (32.0-36.0) 12/30/22 RDW Standard Deviation 45.9 fL (36.4-46.3) 12/30/22 RDW Coefficient of Variation 13.7 % (11.5-14.5) 12/30/22 Plt Count 260 K/uL (130-400) 12/30/22 MPV 10.4 fL (9.4-12.4) 12/30/22 Neutrophils (%) (Auto) 53.2 % 12/30/22 Lymphocytes (%) (Auto) 34.7 % 12/30/22 Monocytes # (Auto) 0.59 K/uL (0.11-0.59) 12/30/22 Eosinophils # (Auto) 0.48 K/uL (0.00-0.50) 12/30/22 Immature Granulocyte % (Auto) 0.6 % 12/30/22 Neutrophils # (Auto) 5.07 K/uL (1.40-6.50) 12/30/22 Lymphocytes # (Auto) 3.31 K/uL (1.20-3.40) 12/30/22 Monocytes # (Auto) 0.59 K/uL (0.11-0.59) 12/30/22 Eosinophils # (Auto) 0.48 K/uL (0.00-0.50) 12/30/22 Basophils # (Auto) 0.03 K/uL (0.00-0.20) 12/30/22 Immature Granulocyte # (Auto) 0.06 K/uL (0.01-0.20) 3 Na Pending 12/30/22 K Pending 12/30/22 Cl Pending 12/30/22 CO2 Pending 12/30/22 Anion Gap Pending 12/30/22 BUN Pending 12/30/22 Creatinine Pending 12/30/22 Estimated GFR ( Amer) Pending 12/30/22 Estimated GFR (Non-Af Amer) Pending 12/30/22 BUN/Creatinine Ratio Pending 12/30/22 Glu Pending 12/30/22 Ca Pending 12/30/22 Total Bilirubin Pending 12/30/22 AST Pending 12/30/22 ALT Pending 12/30/22 Alkaline Phosphatase Pending 12/30/22 TP Pending 12/30/22 Albumin Pending 12/30/22 Globulin Pending 12/30/22 Albumin/Globulin Ratio Pending 12/30/22 Mg Pending 12/30/22 08:00 Calcium Level Pending 12/30/22 08:00 Prothromb Time International Ratio Pending 12/30/22 08:0 0 Venous Blood pH 7.33 (7.36-7.41) L 12/30/22 08:00 Venous Blood Partial Pressure CO2 49 mmHg (38-50) 12/30/22 08:0 0 Venous Blood Partial Pressure O2 65 mmHg 12/30/22 08:00 Venous Blood HCO3 26 mmol/L 12/30/22 08:00 Venous Blood Base Excess -0.7 mEq/L 12/30/22 08:00 Venous Blood Oxygen Saturation 92.1 % 12/30/22 08:00 Diagnostic Findings (Past 24 Hours) Bedside EKG reviewed, no evidence of ST elevation WA RT Ventilator Mngmt (Last Documented) Ventilator Ordered Settings Respiratory Rate 16 12/30/22 08:14 Ventilator - PT Measurements Respiratory Rate 16 Medications Administered Half milligram atropine x1 IV Coding Level of Care Code 53932 CRITICAL CARE 1ST 30-74M Diagnoses Symptomatic bradycardia R00.1 Syncope R55 Syncope type: unspecified Nonsustained monomorphic ventricular tachycardia I47.29 Chronic respiratory failure with hypoxia J96.11 Pulmonary emphysema, unspecified emphysema type J43.9 COPD type: emphysema Emphysema type: unspecified Pulmonary emphysema, unspecified emphysema type J43.9 Emphysema type: unspecified Paroxysmal A-fib I48.0 (2) Syncope Syncope type: unspecified Qualified Code(s): R55 - Syncope and collapse (5) COPD (chronic obstructive pulmonary disease) COPD type: emphysema Emphysema type: unspecified Qualified Code(s): J43.9 - Emphysema, unspecified (6) COPD with emphysema Emphysema type: unspecified Qualified Code(s): J43.9 - Emphysema, unspecified
[2022-12-30 08:28] LABS: Partial Thromboplastin Time 29.4 Seconds (21.0-31.0)
--- NOTE | 2022-12-30 08:36 | XRay Report ---
XR chest 1V portable CLINICAL HISTORY: Chest pain, nonspecific TECHNIQUE: Single frontal radiograph of the chest was obtained. Comparison: Comparison is made to chest radiograph 05/22/2022 FINDINGS: No lines and tubes are seen. The cardiomediastinal silhouette is stable. The lungs are clear. No evid ence of pleural effusion or pneumothorax. IMPRESSION: No acute chest disease. ACT 112: Negative or not required by law. Electronically signed by: Cy Osman M.D. 12/30/2022 8:35 AM
[2022-12-30 08:43] LABS: Alanine Aminotransferase 18 U/L (7-52); Albumin Globulin Ratio 1.4 (0.9-2); Albumin Level 4.2 gm/dl (3.4-5.0); Alkaline Phosphatase 75 U/L (34-104); Anion Gap 7 (3-11); Aspartate Aminotransferase 22 U/L (13-39); BUN Creatinine Ratio 24.7 (10-20); Bilirubin,Total 0.4 mg/dl (0.2-1.0); Blood Urea Nitrogen 20 mg/dl (6-23); Calcium 9.1 mg/dl (8.6-10.3); Carbon Dioxide 26 mmol/L (21-32); Chloride 109 mmol/L (98-107); Est GFR (African American) 84.1 ml/min; Est GFR (Non-African American) 72.6 ml/min; Globulin 2.9 gm/dl (2.5-4.0); Glucose 124 mg/dl (70-99(Fasting)); Lipase 12 U/L (11-82); Magnesium 1.9 mg/dl (1.7-2.4); Potassium 3.7 mmol/L (3.5-5.1); Sodium 142 mmol/L (136-145); Total Protein 7.1 gm/dl (6.0-8.3)
[2022-12-30 08:58] LABS: Lyme Ab IgG w/WB Rflx Negative (Negative); Lyme Ab IgM w/WB Rflx Positive (Negative); Thyroid Stimulating Hormone 4.058 uIu/ml (0.300-4.500)
[2022-12-30] MEDS ORDERED: ONDANSETRON INJ 2 MG/ML 2 ML VIAL IV PRN (09:15)
[2022-12-30] MEDS ORDERED: ACETAMINOPHEN 325 MG TAB PO PRN (09:15)
--- NOTE | 2022-12-30 09:20 | Pre Anesthesia Assessment ---
Date of Service December 30, 2022 Pre Sedation Assessment Vital Signs Pulse Pulse Resp BP BP Pulse Ox O2 Del Method 12/30/22 08:20 Nasal Cannula 12/30/22 08:14 97 H 16 164/126 H 95 Nasal Cannula 12/30/22 08:00 99 H 20 178/91 H 97 Nasal Cannula 12/30/22 07:59 72 16 196/110 H 96 Nasal Cannula 12/30/22 07:53 80 12/30/22 07:45 Nasal Cannula 12/30/22 07:42 80 90 Room Air 12/30/22 07:42 80 24 122/54 L 90 Nasal Cannula O2 Flow Rate 12/30/22 08:20 6 12/30/22 08:14 2 12/30/22 08:00 6 12/30/22 07:59 2 12/30/22 07:53 12/30/22 07:45 2 12/30/22 07:42 2 12/30/22 07:42 2 Cardiovascular RRR, no murmur, no edema Respiratory normal respiratory effort, lungs clear to auscultation Pre-Sedation Airway Assessment Smoking Status: Unknown if ever smoked Mallampati class III ASA 4 Notes The planned sedation has been discussed with the patient. Informed Consent was obtained. I have identified the patient, determined the appropriateness of sedation and have assessed the patient immediately prior to the procedure. All medicine(s) and interventions are by my order.
--- NOTE | 2022-12-30 09:22 | Post Anesthesia Assessment ---
Date of Service December 30, 2022 Post Sedation Assessment Vital Signs Pulse Pulse Resp BP BP Pulse Ox O2 Del Method 12/30/22 08:20 Nasal Cannula 12/30/22 08:14 97 H 16 164/126 H 95 Nasal Cannula 12/30/22 08:00 99 H 20 178/91 H 97 Nasal Cannula 12/30/22 07:59 72 16 196/110 H 96 Nasal Cannula 12/30/22 07:53 80 12/30/22 07:45 Nasal Cannula 12/30/22 07:42 80 90 Room Air 12/30/22 07:42 80 24 122/54 L 90 Nasal Cannula O2 Flow Rate 12/30/22 08:20 6 12/30/22 08:14 2 12/30/22 08:00 6 12/30/22 07:59 2 12/30/22 07:53 12/30/22 07:45 2 12/30/22 07:42 2 12/30/22 07:42 2 Recovery Score Activity: Moves 4 extremities Respiration: Deep Breath/Cough Circulation: +/-20% PreAnes Value Consciousness: Fully Awake Oxygen Saturation: > 92% On Room Air Discharge Sedation Level of Care: Fast Track Phase II Post Sedation Plan On clinical assessment, the patient appears to have tolerated the sedation without complications. Patient is recovering as anticipated. Patient will continue to be monitored by nursing and may be discharged when sedation discharge criteria are met per below protocol. Upon Completions of procedure up to 15 minutes continue every 5 minute vital signs and the P.A.R. score; then discharge to a Phase I or Fast Track to Phase II per the following guidelines: * Discharge Patient to appropriate Phase II area if PAR is 8 or greater or return to pre- procedure baseline. The post - procedure orders will be as directed. * If PAR score is less than 8 or not return to pre-procedure baseline then patient will follow Phase I monitoring till PAR is reached for Phase II. The Phase I may be done in procedure room or may call to secure a Phase I area. * If naloxone or flumazenil are used for reversal, hold in Phase I for continued monitoring from when last reversal dose was given for a minimum of 60 minutes or longer pending the nurse and/or physician discretion of patient condition before discharge to Phase II. Please call the Sedation Physician to re-evaluate and complete post-note for discharge to Phase II area. Do NOT discharge from procedure sedation or Phase 1 until post- sedation evaluation note is complete by procedure /sedation MD Sedation Discharge Instructions to be given to the patient at discharge to home. [facility] [place] Procedure Codes (Charges) Indication for Procedure Indication for procedure: cardiac arrest, asystole Sedation/Anesthesia Procedure 1: Sedation/Anesthesia: 50061 Mod Sedation by the same physician;Init15 Min Child Age 5 & Up (start 0837) Total Sedation Time (minutes): 23 Procedure 2: Sedation/Anesthesia: 14302 Mod Sedation by the same physician; Ea [id number] Minutes (additional 11 min, end 0903) Total Sedation Time (minutes): 23
--- NOTE | 2022-12-30 09:24 | Cardiac Catheterization ---
[facility] Data: Home Care Liaison Cardiac Status Clinical evaluation leading to the procedure CAD Presenation: Sx unlikely to be ischemic (Recurrent syncope, asystole) Anginal Classification: No Symptoms Heart Failure: No Cardiogenic Shock within 24 Hours: No Cardiac Arrest within 24 Hours: Yes Imaging Studies Past 6 Months: Yes Stress Echocardiogram: Yes - Negative Coronary Anatomy Dominant: Left Left Main (% Stenosis): Normal LAD (% Stenosis): Mid (40%) D1 (% Stenosis): Normal D2 (% Stenosis): Normal D3 (% Stenosis): Normal Circumflex (% Stenosis): Normal (Diffuse mild) OM1 (% Stenosis): Normal L PL1 (% Stenosis): Normal L PDA (% Stenosis): Normal RCA (% Stenosis): Normal Ramus (% Stenosis): Normal Left Ventricular Angiography EF (%): 60 to 65% Diagnostic Physicians Name: Attila Packer MD, PhD Closure Device Percutaneous Entry Location: Radial, right IJ Closure Device: Radial Band Recommendations: Medical Therapy and/or Counseling Cardiac Cath Procedure Full Procedure Date December 30, 2022 Pre-Procedure Diagnosis Pre-Procedure Diagnosis: Arrhythmia AUC Score AUC Score: 09 Post-Procedure Diagnosis Post-Procedure Diagnosis: Mild CAD Procedure(s) Performed Procedure(s) Performed: Coronary Angiography, Left Heart Cath, LV Angiography, Temporary Pacemaker and Ultrasound Guided Vascular Access Projects Manager Attila Packer MD, PhD Estimated Blood Loss Estimated Blood Loss: 5 cc Medication(s) Medication(s): Fentanyl, Heparin, Lidocaine 1%, Nicardipine, Nitroglycerin and Versed Summary of Findings Brief description: Patient was brought to the cardiac catheterization suite where she was shaved and prepped in a sterile fashion. Sedated using IV Versed and fentanyl. Soft tissues of the right neck were anesthetized using 2 mL of 1% Xylocaine. Using the ultrasound for guidance (image saved), the right internal jugular vein was accessed with a micropuncture kit and then exchanged over a 0.035 J-tip wire for a 7 Chinese venous sheath. Through this, the temporary pacing wire was advanced with the balloon inflated and positioned in the RV against the septum near the apex. The balloon was deflated. Initially paced at 100 bpm with reduction of the milliamps to 3 mA before loss of capture. The pacer was then set at 5 mA and 80 bpm. We next proceeded with coronary angiography. Soft tissues of the right wrist were anesthetized using 2 amounts of 1% Xylocaine. Again using the ultrasound for guidance (image saved), the right radial artery was accessed and a 6 Chinese radial artery glide sheath was placed. Patient was provided anticoagulation with IV heparin and antispasmodics including nicardipine and nitroglycerin. All catheters were advanced and exchanged over a 0.035 J-tip wire. Left coronary angiography in orthogonal views with a 5 Chinese [place] 4 diagnostic catheter. Right coronary angiography in orthogonal views with a 5 Chinese 3 DRC diagnostic catheter. Left heart cath and left ventriculogram were performed with a 5 Chinese pigtail catheter. All diagnostic catheters were removed. Radial artery sheath was removed and hemostasis was obtained using the TR band. The right IJ catheter was sutured in place and a Biopatch was placed. The access site was then covered with Tegaderm. Patient remained hemodynamically stable and asymptomatic. Plan for admission to the ICU for further work-up and management. This ended the case. Coronary angiography findings: [id number] vessel trifurcating into LAD, ramus, and circumflex. No angiographically significant disease. LAD-large caliber and transapical. Proximal segment with mild luminal irregularities first diagonal is small. Mid vessel then has diffuse mild less than 40% stenosis. Second diagonal is medium. Early distal vessel with diffuse mild plaques. Third diagonal is small and bifurcating. The distal LAD after this is tortuous with mild luminal irregularities. Ramus-medium to large caliber branching vessel with diffuse mild disease less than 30% stenosis. LCx-this is large caliber and dominant. Travels in the AV groove and then provides its first large R twos marginal branch. Continues as a large caliber vessel traveling distally where it then provides a medium to large caliber branching PLB and a medium caliber long PDA. There is no more than mild scattered disease in the circumflex and its branches. RCA-small to medium nondominant vessel. LVG-EF 60 to 65% Summary: 1. Successful transvenous pacer insertion for intermittent asystole (likely sick sinus syndrome). Continue pacing at 80 bpm and 5 mA 2. Mild nonocclusive coronary disease 3. Preserved LV systolic function 4. May need permanent pacemaker. [facility] for further work-up and management. Hemodynamics Rest Ao:: 141/90 mmHg Final Ao: 172/81 mmHg LV: 163/3 mmHg, LVEDP 8 mmHg Recommendations Recommendations: Medical Therapy and/or Counseling Radiation Exposure (mGy) 829 mGy, fluoroscopy time 4.6 minutes Contrast (mls) 50 mL Anesthesia 1 mg IV Versed, 25 mcg IV fentanyl. Start time 0837, end time 09 Procedural Complication(s) None Disposition ICU I attest to the content of the Intraoperative Record and any orders documented therein. Any exceptions are noted below. [facility] [place] Procedure Codes Cardiac Catheterization Procedure 1: Cardiovascular Cath Procedures: 95651 Coronaries and LHC (+/-LV) Therapeutic Services & Ancillary Procedure 1: Cardiovascular Tx and Anc Procedures: 77012 Temp Pacer Insert Procedure 2: Cardiovascular Tx and Anc Procedures: 39671 Ultrasonic Guidance Vascular Access Moderate Sedation Procedure 1: Sedation/Anesthesia: 86801 Mod Sedation by the same physician;Init15 Min Child Age 5 & Up (Initial 15 minutes, start time 08) Procedure 2: Sedation/Anesthesia: 41205 Mod Sedation by the same physician; Ea [id number] Minutes (Additional 11 min, end time 902) PG Care Time/CCT Total # of Minutes Spent Total Time Spent with Patient: Total time spent is greater than 50% in coordination of care (as documented) at patient's floor/unit and/or counseling patient:
[2022-12-30] MEDS ORDERED: NON-FORMULARY MEDICATION (Fluticasone-Umeclidin-Vilanter [Trelegy Ellipta] 200-62.5-25 mcg INH SCH (09:45)
[2022-12-30] MEDS ORDERED: PNEUMOCOCCAL VACCINE (PCV20) 20-VAL CONJ-DIP CRM/PF 0.5 ML SYR IM ONE (10:45)
[2022-12-30] MEDS: PANTOprazole 40 MG TAB PO SCH (11:05)
--- NOTE | 2022-12-30 12:16 | Cardiology Consultation ---
Date of Consultation December 30, 2022 Assessment & Plan (1) Symptomatic bradycardia: (2) Syncope: (3) COPD with emphysema: Plan 72-year-old female with history of past syncopal event possible atrial and ventricular arrhythmias who presented with marked sinus bradycardia, sinus arrest requiring external pacing. Patient underwent coronary angiography without obstructive disease of significance, temporary pacemaker insertion Echocardiogram with preserved LV systolic function and no significant valvular disease No medication contributing Lyme IgM positive but IgG negative. Pattern not consistent with acute Lyme conduction abnormality. We will treat as otherwise in the Plan: Continue support with transvenous pacing N.p.o. after midnight for anticipated dual-chamber pacemaker insertion in a.m. History of Present Illness Reason for Consultation: Sinus arrest with syncope status post emergent temporary pacemaker Requesting Physician: Dr. Proctor Attending Physician: Emiliano Proctor MD History of Present Illness Patient is a 72-year-old female with underlying medical issues as listed below. Ongoing cardiac concerns include 1. Paroxysmal atrial tachycardia/atrial fibrillation 2. Intermittent syncopal event 3. Hypertension 4. Dyslipidemia Clinical history notable for evaluation following syncopal event in April 2022. Initial ischemic evaluation negative. Event monitor was suggestive of possible transient atrial fibrillation/atrial tachycardia. Patient briefly on Eliquis then self discontinued Today had observed episodes of syncope in the bathroom. witnessed 2 events after patient summoning. EMS called. Per verbal reports patient had transient sinus arrest and question VT versus ventricular escape rhythm. Placed on external pacemaker. Continue to require in ER but improved with single dose of atropine. Underwent emergent cardiac catheterization without obstructive coronary disease and temporary transvenous pacemaker placed. Patient observed post above complains of indigestion complaints but no acute pain otherwise. No bleeding difficulties. No fevers chills or unexplained infections notes intermittent episodes of nausea generalized malaise. No observed bleeding with patient on chronic omeprazole. Recently underwent physical therapy and is being evaluated for reduced memory concern Notes no tick exposure or rash No melena hematochezia dysuria hemorrhage EKG prior to cath and pacemaker, after atropine Normal sinus rhythm at 73 bpm with low voltage QRS otherwise normal tracing Allergies Allergy/AdvReac Type Severity Reaction Status Date / Time oxycodone [From OxyContin] Allergy Intermediate Hives Verified 06/20/22 13:58 Home Medications Medication Instructions Recorded Confirmed Type gabapentin 100 mg capsule 100 mg PO TID 02/26/18 05/22/22 History losartan 50 mg tablet 50 mg PO QAM 02/26/18 05/22/22 History omeprazole 20 mg capsule,delayed 20 mg PO QAM 02/26/18 05/22/22 History release albuterol sulfate 90 mcg/actuation 2 puff inhalation Q6H PRN Wheezing 11/30/19 05/22/22 Rx aerosol inhaler #18 grams lovastatin 40 mg tablet 40 mg PO PM 05/30/20 05/22/22 History ipratropium 0.5 mg-albuterol 3 mg 3 ml inhalation Q8H PRN shortness 07/12/20 05/22/22 Rx (2.5 mg base)/3 mL nebulization of breath or wheezing #180 mL soln levocetirizine 5 mg tablet 5 mg PO QAM 07/21/21 05/22/22 History montelukast 10 mg tablet 10 mg PO QAM 08/08/21 05/22/22 History (Singulair) tramadol 50 mg tablet 50 mg PO Q6H PRN pain #30 tabs 08/12/21 05/22/22 Rx diclofenac sodium 75 mg 75 mg PO BID PRN Pain 05/22/22 05/22/22 History tablet,delayed release doxycycline hyclate 100 mg capsule 100 mg PO BID 05/22/22 05/22/22 History fluticasone fur. 200 mcg-umeclid 1 ea inhalation DAILY 05/22/22 05/22/22 History 62.5 mcg-vilant 25 mcg inhalat.powder (Trelegy Ellipta) potassium chloride 10 mEq 10 meq PO DAILY #7 caps 05/23/22 Rx capsule,extended release Patient History Medical History COPD (chronic obstructive pulmonary disease) On home oxygen therapy 2 LPM at HS Obesity History of basal cell carcinoma back and forehead (was removed) Osteoarthritis GERD (gastroesophageal reflux disease) Well controlled and stable with medication Chronic obstructive pulmonary disease - Well controlled per pt - Did finish recent Z pack and prednisone (will finish 07/27/21)- questionable COPD exacerbation- pt feels secondary to allergies - wheezing improved -Follows with Dinora Zelaya (PCP) for lung issues Hyperlipidemia Hypertension Surgical History Status post left knee replacement (~12/2019) Left TKA (01/11/20): SAB at L3/4 (x1 attempt) + PNB at [facility]. No issues per post-op anesthesia progress note. History of left cataract extraction Hx of right cataract extraction History of tooth extraction all teeth History of total hip arthroplasty Right TALYA: 03/28/18: SAB x 2 attempts (L3-L4 with 1 attempt at L4-L5) at [facility] H/O colonoscopy H/O tubal ligation History of repair of rotator cuff LEFT Family History Grandfather (Maternal) Family history of diabetes mellitus Aunt Family history of diabetes mellitus Brother Family history of diabetes mellitus Sister Family history of diabetes mellitus Father Family hx of colon cancer Social History Smoking Status: Unknown if ever smoked Tobacco Type: Cigarettes Cigarettes Per Day: Quit 2015; Second Hand Exposure: No; Do You Dip or Chew Tobacco: No; Hx Alcohol Use: No Hx Substance Use: No Preferred Language: Frisian Communication Ability: Effective Supervisor Braiding Required: No Beliefs That Will Affect Care: None marital status: Current Living Situation: Spouse Other Information That Helps Us Care for You: No Feels Safe at Home: Yes Safety Concerns: Feels Safe At This Time Assistive Devices: None Review of Systems Review of Systems: All systems reviewed & are unremarkable except as noted in HPI & below Physical Exam Constitutional: WD/WN, vitals as above no acute distress Eyes: PERRL, conjunctivae normal, anicteric sclerae ENMT: external ear and nose normal, oropharynx normal Neck: trachea midline, no thyromegaly Cardiovascular: Rate/Rhythm: regular rate and regular rhythm Heart Sounds: normal S1 and normal S2; no cardiac rub Vessels: no JVD and no femoral bruit Extremities: no edema Chest (Breasts): Chest: + pacemaker (Right upper chest temporary wire access) Gastrointestinal (Abdomen): normal bowel sounds, soft, nontender, no hepatosplenomegaly Musculoskeletal: no cyanosis or clubbing, extremities motor strength 5/5 Results & Data Vital Signs (Past 12 Hours) Vital Signs Temp Pulse Pulse Resp BP BP Pulse Ox 12/30/22 11:30 36.5 C 80 18 144/80 H 92 12/30/22 11:02 74 17 96 12/30/22 10:45 81 18 97 12/30/22 10:45 155/134 H 12/30/22 10:32 86 22 89 L 12/30/22 10:30 36.8 C 12/30/22 10:17 79 14 95 12/30/22 10:15 146/90 H 12/30/22 10:00 36.8 C 12/30/22 09:15 36.6 C 12/30/22 09:15 36.5 C 80 20 169/56 H 90 12/30/22 08:20 12/30/22 08:19 97 H 16 97 12/30/22 08:15 99 H 14 96 12/30/22 08:14 95 H 15 96 12/30/22 08:14 164/126 H 12/30/22 08:14 97 H 16 164/126 H 95 12/30/22 08:00 178/91 H 12/30/22 08:00 68 19 96 12/30/22 08:00 99 H 20 178/91 H 97 12/30/22 07:59 69 12 96 12/30/22 07:59 196/110 H 12/30/22 07:59 72 16 196/110 H 96 12/30/22 07:53 80 12/30/22 07:46 83 18 12/30/22 07:45 12/30/22 07:42 80 90 12/30/22 07:42 80 24 122/54 L 90 O2 Del Method O2 Flow Rate 12/30/22 11:30 Nasal Cannula 2.0 12/30/22 11:02 12/30/22 10:45 12/30/22 10:45 12/30/22 10:32 12/30/22 10:30 12/30/22 10:17 12/30/22 10:15 12/30/22 10:00 12/30/22 09:15 12/30/22 09:15 Room Air 12/30/22 08:20 Nasal Cannula 6 12/30/22 08:19 12/30/22 08:15 12/30/22 08:14 12/30/22 08:14 12/30/22 08:14 Nasal Cannula 2 12/30/22 08:00 12/30/22 08:00 12/30/22 08:00 Nasal Cannula 6 12/30/22 07:59 12/30/22 07:59 12/30/22 07:59 Nasal Cannula 2 12/30/22 07:53 12/30/22 07:46 12/30/22 07:45 Nasal Cannula 2 12/30/22 07:42 Room Air 2 12/30/22 07:42 Nasal Cannula 2 Laboratory Results Laboratory Results - last 24 hr 12/30/22 12/30/22 12/30/22 07:54 08:00 08:10 WBC 9.54 RBC 4.37 Hgb 12.9 POC Hgb 13.3 Hct 39.6 POC Hct 39 MCV 90.6 MCH 29.5 MCHC 32.6 RDW Std Deviation 45.9 RDW Coeff of Jc 13.7 Plt Count 260 MPV 10.4 Immature Gran % (Auto) 0.6 Neut % (Auto) 53.2 Lymph % (Auto) 34.7 [place] % (Auto) 6.2 Eos % (Auto) 5.0 Baso % (Auto) 0.3 Neut # (Auto) 5.07 Lymph # (Auto) 3.31 [place] # (Auto) 0.59 Eos # (Auto) 0.48 Baso # (Auto) 0.03 Immature Gran # (Auto) 0.06 PT 11.0 INR 1.0 APTT 29.4 PTT Ratio 1.0 VBG pH 7.33 L VBG pCO2 49 VBG pO2 65 VBG HCO3 26 VBG O2 Saturation 92.1 VBG Base Excess -0.7 POC Sodium 144 Sodium 142 POC Potassium 4.2 Potassium 3.7 POC Chloride 107 Chloride 109 H Carbon Dioxide 26 POC Total CO2 27 Anion Gap 7 POC Anion Gap 14.0 L POC BUN 25 H BUN 20 Creatinine 0.81 POC Creatinine 0.8 Est Cr Clr Drug Dosing Not Reportable Est GFR ( Amer) 84.1 Est GFR (Non-Af Amer) 72.6 BUN/Creatinine Ratio 24.7 H Glucose 124 H POC Glucose POC Glucose (other) 127 H Calcium 9.1 POC Ioniz Calcium Geovani 1.22 Magnesium 1.9 Total Bilirubin 0.4 AST 22 ALT 18 Alkaline Phosphatase 75 Troponin I High Sens 4.0 Total Protein 7.1 Albumin 4.2 Globulin 2.9 Albumin/Globulin Ratio 1.4 Lipase 12 TSH 4.058 Nasal Screen MRSA (PCR) Lyme Disease IgG Ab Negative Lyme IgG (Western Blot) Pending Lyme IgG 18 kDa Band Pending Lyme IgG 23 kDa Band Pending Lyme IgG 28 kDa Band Pending Lyme IgG 30 kDa Band Pending Lyme IgG 39 kDa Band Pending Lyme IgG 41 kDa Band Pending Lyme IgG 45 kDa Band Pending Lyme IgG 58 kDa Band Pending Lyme IgG 66 kDa Band Pending Lyme IgG 93 kDa Band Pending Lyme IgM Ab (WB) Pending Lyme Disease IgM Ab Positive A Lyme IgM 23 kDa Band Pending Lyme IgM 39 kDa Band Pending Lyme IgM 41 kDa Band Pending SARS-CoV-2, RNA, NAAT NEGATIVE 12/30/22 12/30/22 12/30/22 10:10 10:18 11:08 WBC RBC Hgb POC Hgb Hct POC Hct MCV MCH MCHC RDW Std Deviation RDW Coeff of Jc Plt Count MPV Immature Gran % (Auto) Neut % (Auto) Lymph % (Auto) [place] % (Auto) Eos % (Auto) Baso % (Auto) Neut # (Auto) Lymph # (Auto) [place] # (Auto) Eos # (Auto) Baso # (Auto) Immature Gran # (Auto) PT INR APTT PTT Ratio VBG pH VBG pCO2 VBG pO2 VBG HCO3 VBG O2 Saturation VBG Base Excess POC Sodium Sodium POC Potassium Potassium POC Chloride Chloride Carbon Dioxide POC Total CO2 Anion Gap POC Anion Gap POC BUN BUN Creatinine POC Creatinine Est Cr Clr Drug Dosing Est GFR ( Amer) Est GFR (Non-Af Amer) BUN/Creatinine Ratio Glucose POC Glucose 94 100 H POC Glucose (other) Calcium POC Ioniz Calcium Geovani Magnesium Total Bilirubin AST ALT Alkaline Phosphatase Troponin I High Sens Total Protein Albumin Globulin Albumin/Globulin Ratio Lipase TSH Nasal Screen MRSA (PCR) Negative Lyme Disease IgG Ab Lyme IgG (Western Blot) Lyme IgG 18 kDa Band Lyme IgG 23 kDa Band Lyme IgG 28 kDa Band Lyme IgG 30 kDa Band Lyme IgG 39 kDa Band Lyme IgG 41 kDa Band Lyme IgG 45 kDa Band Lyme IgG 58 kDa Band Lyme IgG 66 kDa Band Lyme IgG 93 kDa Band Lyme IgM Ab (WB) Lyme Disease IgM Ab Lyme IgM 23 kDa Band Lyme IgM 39 kDa Band Lyme IgM 41 kDa Band SARS-CoV-2, RNA, NAAT (2) Syncope Syncope type: unspecified Qualified Code(s): R55 - Syncope and collapse (3) COPD with emphysema Emphysema type: unspecified Qualified Code(s): J43.9 - Emphysema, unspecified
[2022-12-30] MEDS: ICU Protocol for HYPERglycemia SCH ×3 (12:20→19:53)
[2022-12-30] MEDS ORDERED: traMADol HCL 50 MG TABLET PO STA (12:30)
[2022-12-30] MEDS ORDERED: ALUMINUM/MAGNESIUM SUSP 30 ML UDC PO PRN (12:30)
[2022-12-30] MEDS ORDERED: ALUMINUM/MAGNESIUM SUSP 30 ML UDC PO STA (12:30)
[2022-12-30] MEDS ORDERED: traMADol HCL 50 MG TABLET PO PRN (12:30)
[2022-12-30] MEDS: D5NSS + 20MEQ KCL 20 MEQ/1,000 ML BAG IV SCH (14:05)
[2022-12-30] MEDS: cefTRIAXone SODIUM 2,000 MG in DEXTROSE 5 % MINI-B 50 ML IV SCH (14:05)
--- NOTE | 2022-12-30 14:28 | Hospitalist Progress Note ---
Date of Service December 30, 2022 Assessment & Plan Admission and Anticipated Discharge Date Admission Date: December 30, 2022 Results & Data Results & Data Vital Signs (Past 12 Hours) Vital Signs Temp Pulse Pulse Resp BP BP Pulse Ox 12/30/22 13:30 81 22 95 12/30/22 13:30 37.0 C 12/30/22 13:00 143/89 H 12/30/22 13:00 80 16 98 12/30/22 12:31 86 20 91 12/30/22 12:31 135/83 12/30/22 12:30 78 19 94 12/30/22 12:00 81 20 96 12/30/22 11:33 79 15 96 12/30/22 11:30 36.5 C 80 18 144/80 H 92 12/30/22 11:02 74 17 96 12/30/22 10:45 81 18 97 12/30/22 10:45 155/134 H 12/30/22 10:32 86 22 89 L 12/30/22 10:30 36.8 C 12/30/22 10:17 79 14 95 12/30/22 10:15 146/90 H 12/30/22 10:00 36.8 C 12/30/22 09:15 36.6 C 12/30/22 09:15 36.5 C 80 20 169/56 H 90 12/30/22 08:20 12/30/22 08:19 97 H 16 97 12/30/22 08:15 99 H 14 96 12/30/22 08:14 95 H 15 96 12/30/22 08:14 164/126 H 12/30/22 08:14 97 H 16 164/126 H 95 12/30/22 08:00 178/91 H 12/30/22 08:00 68 19 96 12/30/22 08:00 99 H 20 178/91 H 97 12/30/22 07:59 69 12 96 12/30/22 07:59 196/110 H 12/30/22 07:59 72 16 196/110 H 96 12/30/22 07:53 80 12/30/22 07:46 83 18 12/30/22 07:45 12/30/22 07:42 80 90 12/30/22 07:42 80 24 122/54 L 90 O2 Del Method O2 Flow Rate 12/30/22 13:30 12/30/22 13:30 12/30/22 13:00 12/30/22 13:00 12/30/22 12:31 12/30/22 12:31 12/30/22 12:30 12/30/22 12:00 12/30/22 11:33 12/30/22 11:30 Nasal Cannula 2.0 12/30/22 11:02 12/30/22 10:45 12/30/22 10:45 12/30/22 10:32 12/30/22 10:30 12/30/22 10:17 12/30/22 10:15 12/30/22 10:00 12/30/22 09:15 12/30/22 09:15 Room Air 12/30/22 08:20 Nasal Cannula 6 12/30/22 08:19 12/30/22 08:15 12/30/22 08:14 12/30/22 08:14 12/30/22 08:14 Nasal Cannula 2 12/30/22 08:00 12/30/22 08:00 12/30/22 08:00 Nasal Cannula 6 12/30/22 07:59 12/30/22 07:59 12/30/22 07:59 Nasal Cannula 2 12/30/22 07:53 12/30/22 07:46 12/30/22 07:45 Nasal Cannula 2 12/30/22 07:42 Room Air 2 12/30/22 07:42 Nasal Cannula 2
--- NOTE | 2022-12-30 14:36 | History & Physical Report ---
Date of Service December 30, 2022 Assessment & Plan (1) Symptomatic bradycardia: (2) Syncope: Plan: Lyme IGM: positive TSH: normal for Pacemaker placement tomorrow Ceftriaxone IV started Maalox, Protonix for epigastric pain COPD not in exarcerbation continue Trelegy CHD Diastolic Grade 1 euvolemic DVT prophylaxis SCDs for now plan of care discussed with patient in detail and at length all questions answered she is understanding, agreeable, comfortable with the plan of care Admission and Anticipated Discharge Date Admission Date: December 30, 2022 History of Present Illness Primary Care Provider: Rafa Vargas MD 72 year old female with history of COPD, Paroxysmal A fib, HTN, Diastolic CHF, etc presenting with syncope. Patient had 2 episodes of syncope this morning. EMS called, found to have profound bradycardia, asystole, and external pacemaker placed. At the ER, heart alert called. Patient underwent cardiac cath and temporary pacemaker placement: Coronary angiography without obstructive disease of significance. Echo: preserved LV systolic function and no significant valvular disease On exam, patient seen resting in bed. Reports burning sensation in the epigastrium/esophagus. no chest pain, dyspnea, palpitations, dizziness Allergies Allergy/AdvReac Type Severity Reaction Status Date / Time oxycodone [From OxyContin] Allergy Intermediate Hives Verified 06/20/22 13:58 Home Medications Medication Instructions Recorded Confirmed Type gabapentin 100 mg capsule 100 mg PO TID 02/26/18 05/22/22 History losartan 50 mg tablet 50 mg PO QAM 02/26/18 05/22/22 History omeprazole 20 mg capsule,delayed 20 mg PO QAM 02/26/18 05/22/22 History release albuterol sulfate 90 mcg/actuation 2 puff inhalation Q6H PRN Wheezing 11/30/19 05/22/22 Rx aerosol inhaler #18 grams lovastatin 40 mg tablet 40 mg PO PM 05/30/20 05/22/22 History ipratropium 0.5 mg-albuterol 3 mg 3 ml inhalation Q8H PRN shortness 07/12/20 05/22/22 Rx (2.5 mg base)/3 mL nebulization of breath or wheezing #180 mL soln levocetirizine 5 mg tablet 5 mg PO QAM 07/21/21 05/22/22 History montelukast 10 mg tablet 10 mg PO QAM 08/08/21 05/22/22 History (Singulair) tramadol 50 mg tablet 50 mg PO Q6H PRN pain #30 tabs 08/12/21 05/22/22 Rx diclofenac sodium 75 mg 75 mg PO BID PRN Pain 05/22/22 05/22/22 History tablet,delayed release doxycycline hyclate 100 mg capsule 100 mg PO BID 05/22/22 05/22/22 History fluticasone fur. 200 mcg-umeclid 1 ea inhalation DAILY 05/22/22 05/22/22 History 62.5 mcg-vilant 25 mcg inhalat.powder (Trelegy Ellipta) potassium chloride 10 mEq 10 meq PO DAILY #7 caps 05/23/22 Rx capsule,extended release Past Med/Surg History Medical History COPD (chronic obstructive pulmonary disease) On home oxygen therapy 2 LPM at Obesity History of basal cell carcinoma back and forehead (was removed) Osteoarthritis GERD (gastroesophageal reflux disease) Well controlled and stable with medication Chronic obstructive pulmonary disease - Well controlled per pt - Did finish recent Z pack and prednisone (will finish 07/27/21)- questionable COPD exacerbation- pt feels secondary to allergies - wheezing improved -Follows with Dinora Zelaya (PCP) for lung issues Hyperlipidemia Hypertension Surgical History Status post left knee replacement (~12/2019) Left TKA (01/11/20): SAB at L3/4 (x1 attempt) + PNB at [facility]. No issues per post-op anesthesia progress note. History of left cataract extraction Hx of right cataract extraction History of tooth extraction all teeth History of total hip arthroplasty Right TALYA: 03/28/18: SAB x 2 attempts (L3-L4 with 1 attempt at L4-L5) at [facility] H/O colonoscopy H/O tubal ligation History of repair of rotator cuff LEFT Family History Grandfather (Maternal) Family history of diabetes mellitus Aunt Family history of diabetes mellitus Brother Family history of diabetes mellitus Sister Family history of diabetes mellitus Father Family hx of colon cancer Social History Smoking Status: Unknown if ever smoked Tobacco Type: Cigarettes Cigarettes Per Day: Quit 2015; Second Hand Exposure: No; Do You Dip or Chew Tobacco: No; Hx Alcohol Use: No Hx Substance Use: No Preferred Language: Chilean Communication Ability: Effective Applications Tester Required: No Beliefs That Will Affect Care: None marital status: Current Living Situation: Spouse Other Information That Helps Us Care for You: No Feels Safe at Home: Yes Safety Concerns: Feels Safe At This Time Assistive Devices: None Review of Systems Review of Systems: all noted and negative except for above Physical Exam Physical Exam: General- oriented x 3, not in distress, speaks in sentences with no effort or accessory muscle use Head- atraumatic Eyes- PERRL, EOMI, anicteric ENT- oropharynx clear Neck- supple, no JVD, no adenopathy, no thyromegaly; carotids +2/2, no bruits appreciated Lungs- clear to auscultation bilaterally, no rales/wheezes Heart- normal rate, regular rhythm; no murmur, no gallop, no rub appreciated Abdomen- normal bowel sounds, nondistended, soft, nontender, no masses or hepatosplenomegaly Extremities- no pretibial edema, no calf tenderness; peripheral pulses intact Neuro- alert, oriented x 3; CN 2-12 grossly intact; motor 5/5 bila terally;sensation 100% on all extremities; no other gross focal neurologic deficits Skin- warm & dry Results & Data Results & Data Vital Signs (Past 12 Hours) Vital Signs Temp Pulse Pulse Resp BP BP Pulse Ox 12/30/22 13:30 81 22 95 12/30/22 13:30 37.0 C 12/30/22 13:00 143/89 H 12/30/22 13:00 80 16 98 12/30/22 12:31 86 20 91 12/30/22 12:31 135/83 12/30/22 12:30 78 19 94 12/30/22 12:00 81 20 96 12/30/22 11:33 79 15 96 12/30/22 11:30 36.5 C 80 18 144/80 H 92 12/30/22 11:02 74 17 96 12/30/22 10:45 81 18 97 12/30/22 10:45 155/134 H 12/30/22 10:32 86 22 89 L 12/30/22 10:30 36.8 C 12/30/22 10:17 79 14 95 12/30/22 10:15 146/90 H 12/30/22 10:00 36.8 C 12/30/22 09:15 36.6 C 12/30/22 09:15 36.5 C 80 20 169/56 H 90 12/30/22 08:20 12/30/22 08:19 97 H 16 97 12/30/22 08:15 99 H 14 96 12/30/22 08:14 95 H 15 96 12/30/22 08:14 164/126 H 12/30/22 08:14 97 H 16 164/126 H 95 12/30/22 08:00 178/91 H 12/30/22 08:00 68 19 96 12/30/22 08:00 99 H 20 178/91 H 97 12/30/22 07:59 69 12 96 12/30/22 07:59 196/110 H 12/30/22 07:59 72 16 196/110 H 96 12/30/22 07:53 80 12/30/22 07:46 83 18 12/30/22 07:45 12/30/22 07:42 80 90 12/30/22 07:42 80 24 122/54 L 90 O2 Del Method O2 Flow Rate 12/30/22 13:30 12/30/22 13:30 12/30/22 13:00 12/30/22 13:00 12/30/22 12:31 12/30/22 12:31 12/30/22 12:30 12/30/22 12:00 12/30/22 11:33 12/30/22 11:30 Nasal Cannula 2.0 12/30/22 11:02 12/30/22 10:45 12/30/22 10:45 12/30/22 10:32 12/30/22 10:30 12/30/22 10:17 12/30/22 10:15 12/30/22 10:00 12/30/22 09:15 12/30/22 09:15 Room Air 12/30/22 08:20 Nasal Cannula 6 12/30/22 08:19 12/30/22 08:15 12/30/22 08:14 12/30/22 08:14 12/30/22 08:14 Nasal Cannula 2 12/30/22 08:00 12/30/22 08:00 12/30/22 08:00 Nasal Cannula 6 12/30/22 07:59 12/30/22 07:59 12/30/22 07:59 Nasal Cannula 2 12/30/22 07:53 12/30/22 07:46 12/30/22 07:45 Nasal Cannula 2 12/30/22 07:42 Room Air 2 12/30/22 07:42 Nasal Cannula 2 all noted and reviewed including below Code Status & VTE Plan VTE Prophylaxis Plan VTE Prophylaxis will be ordered: No (2) Syncope Syncope type: unspecified Qualified Code(s): R55 - Syncope and collapse
--- NOTE | 2022-12-30 15:37 | Emergency Department Note ---
History of Present Illness General Chief complaint: Cardiac Assessment Time Seen by Provider: 12/30/22 07:47 Source: patient, family and EMS History of Present Illness Provider complaint: Syncope Maximum Pain Intensity: 5 72-year-old female presents emergency department for syncope. Patient reports that she has had multiple syncopal episodes over the last 3 days. EMS was called because the patient states she was about to pass out again today. EMS arrived and in route to the hospital EMS reports that the patient had 1 episode of V. tach and 3 episodes where she bradycardia down to an asystole and then quickly came out of it. They were unable to capture any of these episodes on EKG. EMS began transcutaneously pacing the patient and attempt to keep her from going into asystole again and from losing consciousness again. Patient did not hit her head during any of these episodes. at bedside reports that the patient has a history of having low potassium. Home Medications Medication Instructions Recorded Confirmed Type gabapentin 100 mg capsule 100 mg PO TID 02/26/18 05/22/22 History losartan 50 mg tablet 50 mg PO QAM 02/26/18 05/22/22 History omeprazole 20 mg capsule,delayed 20 mg PO QAM 02/26/18 05/22/22 History release albuterol sulfate 90 mcg/actuation 2 puff inhalation Q6H PRN Wheezing 11/30/19 05/22/22 Rx aerosol inhaler #18 grams lovastatin 40 mg tablet 40 mg PO PM 05/30/20 05/22/22 History ipratropium 0.5 mg-albuterol 3 mg 3 ml inhalation Q8H PRN shortness 07/12/20 05/22/22 Rx (2.5 mg base)/3 mL nebulization of breath or wheezing #180 mL soln levocetirizine 5 mg tablet 5 mg PO QAM 07/21/21 05/22/22 History montelukast 10 mg tablet 10 mg PO QAM 08/08/21 05/22/22 History (Singulair) tramadol 50 mg tablet 50 mg PO Q6H PRN pain #30 tabs 08/12/21 05/22/22 Rx diclofenac sodium 75 mg 75 mg PO BID PRN Pain 05/22/22 05/22/22 History tablet,delayed release doxycycline hyclate 100 mg capsule 100 mg PO BID 05/22/22 05/22/22 History fluticasone fur. 200 mcg-umeclid 1 ea inhalation DAILY 05/22/22 05/22/22 History 62.5 mcg-vilant 25 mcg inhalat.powder (Trelegy Ellipta) potassium chloride 10 mEq 10 meq PO DAILY #7 caps 05/23/22 Rx capsule,extended release Allergies Allergy/AdvReac Type Severity Reaction Status Date / Time oxycodone [From OxyContin] Allergy Intermediate Hives Verified 06/20/22 13:58 Past Med/Surg History Medical History COPD (chronic obstructive pulmonary disease) On home oxygen therapy 2 LPM at Obesity History of basal cell carcinoma back and forehead (was removed) Osteoarthritis GERD (gastroesophageal reflux disease) Well controlled and stable with medication Chronic obstructive pulmonary disease - Well controlled per pt - Did finish recent Z pack and prednisone (will finish 07/27/21)- questionable COPD exacerbation- pt feels secondary to allergies - wheezing improved -Follows with Dinora Zelaya (PCP) for lung issues Hyperlipidemia Hypertension Surgical History Status post left knee replacement (~12/2019) Left TKA (01/11/20): SAB at L3/4 (x1 attempt) + PNB at [facility]. No issues per post-op anesthesia progress note. History of left cataract extraction Hx of right cataract extraction History of tooth extraction all teeth History of total hip arthroplasty Right TALYA: 03/28/18: SAB x 2 attempts (L3-L4 with 1 attempt at L4-L5) at [facility] H/O colonoscopy H/O tubal ligation History of repair of rotator cuff LEFT Family History Grandfather (Maternal) Family history of diabetes mellitus Aunt Family history of diabetes mellitus Brother Family history of diabetes mellitus Sister Family history of diabetes mellitus Father Family hx of colon cancer Social History Smoking Status: Unknown if ever smoked Tobacco Type: Cigarettes Cigarettes Per Day: Quit 2015; Second Hand Exposure: No; Do You Dip or Chew Tobacco: No; Hx Alcohol Use: No Hx Substance Use: No Preferred Language: Irish Communication Ability: Effective Superintendent Logging Required: No Beliefs That Will Affect Care: None marital status: Current Living Situation: Spouse Other Information That Helps Us Care for You: No Feels Safe at Home: Yes Safety Concerns: Feels Safe At This Time Assistive Devices: None Physical Exam Vital Signs Vital Signs - 24 hr 12/30/22 07:42 12/30/22 07:42 12/30/22 07:45 Pulse Rate 80 80 Pulse Rate [Right Finger] Pulse Rate from SpO2 Sensor Respiratory Rate 24 Respiratory Effort / Characteristics Respiratory Depth Respiratory Pattern Blood Pressure 122/54 L Blood Pressure [Right Arm] Blood Pressure Mean 76 Blood Pressure Mean [Right Arm] Pulse Oximetry 90 90 Oxygen Delivery Method Nasal Cannula Room Air Nasal Cannula Oxygen Flow Rate 2 2 2 Sepsis Recent Fever Within 48 Hours No Sepsis New/Unexplained Change in Mental Status N/A Sepsis Action Taken by Nursing No Action Required 12/30/22 07:46 12/30/22 07:53 12/30/22 07:59 Pulse Rate 83 80 Pulse Rate [Right Finger] 72 Pulse Rate from SpO2 Sensor Respiratory Rate 18 16 Respiratory Effort / Characteristics Non-Labored Respiratory Depth Normal Respiratory Pattern Blood Pressure Blood Pressure [Right Arm] 196/110 H Blood Pressure Mean Blood Pressure Mean [Right Arm] 138 Pulse Oximetry 96 Oxygen Delivery Method Nasal Cannula Oxygen Flow Rate 2 Sepsis Recent Fever Within 48 Hours Sepsis New/Unexplained Change in Mental Status Sepsis Action Taken by Nursing 12/30/22 07:59 12/30/22 07:59 12/30/22 08:00 Pulse Rate 69 Pulse Rate [Right Finger] 99 H Pulse Rate from SpO2 Sensor 68 Respiratory Rate 12 20 Respiratory Effort / Characteristics Non-Labored Respiratory Depth Normal Respiratory Pattern Regular Blood Pressure 196/110 H Blood Pressure [Right Arm] 178/91 H Blood Pressure Mean 154 Blood Pressure Mean [Right Arm] 120 Pulse Oximetry 96 97 Oxygen Delivery Method Nasal Cannula Oxygen Flow Rate 6 Sepsis Recent Fever Within 48 Hours Sepsis New/Unexplained Change in Mental Status Sepsis Action Taken by Nursing 12/30/22 08:00 12/30/22 08:00 12/30/22 08:14 Pulse Rate 68 Pulse Rate [Right Finger] 97 H Pulse Rate from SpO2 Sensor 70 Respiratory Rate 19 16 Respiratory Effort / Characteristics Non-Labored Respiratory Depth Normal Respiratory Pattern Blood Pressure 178/91 H Blood Pressure [Right Arm] 164/126 H Blood Pressure Mean 138 Blood Pressure Mean [Right Arm] 138 Pulse Oximetry 96 95 Oxygen Delivery Method Nasal Cannula Oxygen Flow Rate 2 Sepsis Recent Fever Within 48 Hours Sepsis New/Unexplained Change in Mental Status Sepsis Action Taken by Nursing 12/30/22 08:14 12/30/22 08:14 12/30/22 08:15 Pulse Rate 95 H 99 H Pulse Rate [Right Finger] Pulse Rate from SpO2 Sensor 95 H 99 H Respiratory Rate 15 14 Respiratory Effort / Characteristics Respiratory Depth Respiratory Pattern Blood Pressure 164/126 H Blood Pressure [Right Arm] Blood Pressure Mean 146 Blood Pressure Mean [Right Arm] Pulse Oximetry 96 96 Oxygen Delivery Method Oxygen Flow Rate Sepsis Recent Fever Within 48 Hours Sepsis New/Unexplained Change in Mental Status Sepsis Action Taken by Nursing 12/30/22 08:19 12/30/22 08:20 Pulse Rate 97 H Pulse Rate [Right Finger] Pulse Rate from SpO2 Sensor 97 H Respiratory Rate 16 Respiratory Effort / Characteristics Respiratory Depth Respiratory Pattern Blood Pressure Blood Pressure [Right Arm] Blood Pressure Mean Blood Pressure Mean [Right Arm] Pulse Oximetry 97 Oxygen Delivery Method Nasal Cannula Oxygen Flow Rate 6 Sepsis Recent Fever Within 48 Hours Sepsis New/Unexplained Change in Mental Status Sepsis Action Taken by Nursing Physical Exam GENERAL: Patient screaming as she is being transcutaneously paced from the pain from the transcutaneous pacemaker. HENT: Exam performed. - Head: Normocephalic and atraumatic. EYES: Conjunctivae and EOM are normal. Right eye exhibits no discharge. Left eye exhibits no discharge. No scleral icterus. NECK: Normal range of motion. Neck supple. No JVD present. CV: Normal rate, regular rhythm, normal heart sounds and intact distal pulses. There is no peripheral edema. Palpable radial pulses bue. PULM/CHEST: Effort normal and breath sounds normal. No respiratory distress. No stridor. no wheezes. no rales. ABD: The abdomen is soft. There is no tenderness. NEURO: Motor and sensation grossly intact. SKIN: Skin is warm and dry. He is not diaphoretic. PSYCH: normal mood and affect. Behavior is normal. Judgment and thought content normal. Course Course 0742: The patient was evaluated in room B1. A complete history and physical exam was performed Cardiac monitoring: An order was placed for continuous cardiac monitoring. The monitor shows a rate of 80 with paced rhythm interpreted by me Heart alert was paged. 0749: ICU paged also. Earlier was called and spoke with Dr. Brower informed him of the patient and that the patient most likely needs a transvenous pacemaker is not a STEMI. He states he will be in to see that the patient. Will intubate the patient as she is having extreme pain following transvenously paced. 0800: Dr. Cartagena ICU at bedside. We are able to titrate the patient's external pacemaker down to a rate of 60 and with an amplitude of 40. The patient was conducting on her own in a sinus rhythm with a rate in the 90s. Decision was made not to intubate the patient as she is no longer needing the transcutaneous pacing. Dr. Packer cardiology was made aware of the patient's change in clinical status and requirements of pacing and states he will be down to evaluate the patient. 0821: Dr. Packer at bedside. Decision was made to take the patient to the [facility] for transvenous pacemaker placement. Administered Medications Acetaminophen (Acetaminophen 325 Mg Tab) 650 mg PO Q4H PRN PRN Reason: MILD Pain (1,2,3) Stop: 01/29/23 09:14 Last Admin: 12/30/22 11:45 Dose: 650 mg Documented By: GPF Ceftriaxone Sodium 2,000 mg/ (Dextrose) 50 mls @ 100 mls/hr IV Q24H [facility]; Protocol Stop: 01/09/23 12:59 Last Infusion: 12/30/22 15:13 Dose: Infused Documented By: Admin: 12/30/22 14:05 Dose: 100 mls/hr Documented By: GPF Potassium Chloride/Dextrose/Sod Cl (D5nss + 20meq Kcl) 20 meq in 1,000 mls @ 75 mls/hr IV .[id number] [facility]; Protocol Stop: 01/29/23 12:44 Last Admin: 12/30/22 14:05 Dose: 75 mls/hr Documented By: GPF Miscellaneous (Icu Protocol For Hyperglycemia) 1 each N/A ACHS [facility] Stop: 01/01/23 11:29 Last Admin: 12/30/22 12:20 Dose: Not Given Documented By: GPF Ondansetron HCl (Ondansetron Inj 2 Mg/Ml 2 Ml Vial) 4 mg IV Q6H PRN PRN Reason: Nausea Stop: 01/29/23 09:14 Last Admin: 12/30/22 12:20 Dose: 4 mg Documented By: GPF Pantoprazole Sodium (Pantoprazole 40 Mg Tab) 40 mg PO QAM AYAN Stop: 01/29/23 10:29 Last Admin: 12/30/22 11:05 Dose: 40 mg Documented By: GPF Discontinued Medications Al Hydrox/Mg Hydrox/Simethicone (Aluminum/Magnesium Susp 30 Ml Udc) 30 ml PO NOW STA Stop: 12/30/22 12:31 Last Admin: 12/30/22 12:46 Dose: 30 ml Documented By: GPF Fentanyl Citrate (Fentanyl Citrate Pf 100 Mcg/2 Ml Vial) Confirm Administered Dose 100 mcg .ROUTE .STK-MED ONE Stop: 12/30/22 08:05 Last Increment: 12/30/22 09:00 Dose: 25 mcg Documented By: [facility] Heparin Sodium (Porcine) (Heparin (Porcine) 1000 Unit/Ml 10 Ml ([facility] Use Only)) Confirm Administered Dose 10,000 units .ROUTE .STK-MED ONE Stop: 12/30/22 08:04 Last Admin: 12/30/22 09:00 Dose: 5,000 units Documented By: CMS Heparin Sodium/Sodium Chloride (Heparin In Nss Infusion 1000 Unit/500 Ml (2 U/Ml) Bag) Confirm Administered Dose 3,000 units IV .STK-MED ONE Stop: 12/30/22 08:05 Last Admin: 12/30/22 10:15 Dose: Not Given Documented By: GPF Midazolam HCl (Midazolam Hcl 1 Mg/Ml 2ml Vial) Confirm Administered Dose 2 mg .ROUTE .STK-MED ONE Stop: 12/30/22 08:04 Last Increment: 12/30/22 09:00 Dose: 1 mg Documented By: [facility] Miscellaneous (Rapid Sequence Induction Bag) Confirm Administered Dose 1 each N/A .STK-MED ONE Stop: 12/30/22 07:44 Last Admin: 12/30/22 07:49 Dose: 1 each Documented By: NRGloria Nicardipine HCl (Nicardipine Hcl Inj 2.5 Mg/Ml 10 Ml Amp) Confirm Administered Dose 25 mg .ROUTE .STK-MED ONE Stop: 12/30/22 08:05 Last Admin: 12/30/22 10:15 Dose: Not Given Documented By: GPF Nitroglycerin/Dextrose (Nitroglycerin/D5w 100mcg/Ml 20ml Syr) Confirm Administered Dose 2,000 mcg .ROUTE .STK-MED ONE Stop: 12/30/22 08:05 Last Admin: 12/30/22 10:15 Dose: Not Given Documented By: GPF Ondansetron HCl (Ondansetron Inj 2 Mg/Ml 2 Ml Vial) Confirm Administered Dose 4 mg .ROUTE .STK-MED ONE Stop: 12/30/22 08:05 Last Admin: 12/30/22 08:07 Dose: 4 mg Documented By: NRB Ondansetron HCl (Ondansetron Inj 2 Mg/Ml 2 Ml Vial) Confirm Administered Dose 4 mg .ROUTE .STK-MED ONE Stop: 12/30/22 08:23 Last Admin: 12/30/22 09:00 Dose: 4 mg Documented By: [facility] Critical Care Time Critical Care Time: Yes Total Critical Care Time: 45 I have personally spent greater than 45 minutes of critical care time in the direct management of this patient. This includes bedside care, interpretation of diagnostic studies, and testing, discussion with consultants, patient, and family members, and other required patient management activities. This 45 minutes is in excess of all separately billable procedures. Medical Decision Making Medical Records Attestation: I reviewed the patient's medical records. External medical records reviewed. Notes from [facility] cardiology Dr. Evans June 2022 states that the patient has a history of paroxysmal atrial fibrillation and SVT. Patient supposed be on Eliquis. Of note, the patient reports she stopped taking her Eliquis 1 month ago without consulting any of her physicians. Laboratory Data Attestation: I reviewed the patient's lab results. 12/30/22 08:00 12/30/22 08:00 Lab Results 12/30/22 12/30/22 12/30/22 Range/Units 07:54 08:00 08:10 WBC 9.54 (4.8-10.8) K/ul RBC 4.37 (4.20-5.40) M/uL Hgb 12.9 (12.0-16.0) g/dl POC Hgb 13.3 (12.0-16.0) g/dl Hct 39.6 (37.0-47.0) % POC Hct 39 (37-47) % MCV 90.6 (80.0-100.0) fL MCH 29.5 (25.0-34.0) pg MCHC 32.6 (32.0-36.0) g/dL RDW Std Deviation 45.9 (36.4-46.3) fL RDW Coeff of Jc 13.7 (11.5-14.5) % Plt Count 260 (130-400) K/uL MPV 10.4 (9.4-12.4) fL Immature Gran % (Auto) 0.6 % Neut % (Auto) 53.2 % Lymph % (Auto) 34.7 % [place] % (Auto) 6.2 % Eos % (Auto) 5.0 % Baso % (Auto) 0.3 % Neut # (Auto) 5.07 (1.40-6.50) K/uL Lymph # (Auto) 3.31 (1.20-3.40) K/uL [place] # (Auto) 0.59 (0.11-0.59) K/uL Eos # (Auto) 0.48 (0.00-0.50) K/uL Baso # (Auto) 0.03 (0.00-0.20) K/uL Immature Gran # (Auto) 0.06 (0.01-0.20) K/uL PT 11.0 (9.0-12.0) Seconds INR 1.0 (0.9-1.1) APTT 29.4 (21.0-31.0) Seconds PTT Ratio 1.0 VBG pH 7.33 L (7.36-7.41) VBG pCO2 49 (38-50) mmHg VBG pO2 65 mmHg VBG HCO3 26 mmol/L VBG O2 Saturation 92.1 % VBG Base Excess -0.7 mEq/L POC Sodium 144 (135-144) mmol/L Sodium 142 (136-145) mmol/L POC Potassium 4.2 (3.3-5.0) mmol/L Potassium 3.7 (3.5-5.1) mmol/L POC Chloride 107 (101-112) mmol/L Chloride 109 H (98-107) mmol/L Carbon Dioxide 26 (21-32) mmol/L POC Total CO2 27 (24-31) mmol/L Anion Gap 7 (3-11) POC Anion Gap 14.0 L (16-25) mmol/L POC BUN 25 H (7-18) mg/dl BUN 20 (6-23) mg/dl Creatinine 0.81 (0.6-1.2) mg/dl POC Creatinine 0.8 (0.6-1.3) mg/dl Est Cr Clr Drug Dosing Not Reportable Est GFR ( Amer) 84.1 ml/min Est GFR (Non-Af Amer) 72.6 ml/min BUN/Creatinine Ratio 24.7 H (10-20) Glucose 124 H (70-99(Fasting)) mg/dl POC Glucose (other) 127 H (70-99) mg/dl Calcium 9.1 (8.6-10.3) mg/dl POC Ioniz Calcium Geovani 1.22 (1.12-1.32) mmol/l Magnesium 1.9 (1.7-2.4) mg/dl Total Bilirubin 0.4 (0.2-1.0) mg/dl AST 22 (13-39) U/L ALT 18 (7-52) U/L Alkaline Phosphatase 75 (34-104) U/L Troponin I High Sens 4.0 (0-14) pg/ml Total Protein 7.1 (6.0-8.3) gm/dl Albumin 4.2 (3.4-5.0) gm/dl Globulin 2.9 (2.5-4.0) gm/dl Albumin/Globulin Ratio 1.4 (0.9-2) Lipase 12 (11-82) U/L TSH 4.058 (0.300-4.500) uIu/ml Lyme Disease IgG Ab Negative (Negative) Lyme Disease IgM Ab Positive A (Negative) SARS-CoV-2, RNA, NAAT NEGATIVE (NEGATIVE) Imaging Data Attestation: I personally reviewed and interpreted this imaging study as follows: My Impression: Chest x-ray negative. Airway clear. No pneumothorax. No consolidation. No cardiomegaly or cephalization.. No free air under the diaphragm. No fractures of the skeletal structures. Radiologist's Impression: Chest X-Ray 12/30/22 07:50 XR chest 1V portable CLINICAL HISTORY: Chest pain, nonspecific TECHNIQUE: Single frontal radiograph of the chest was obtained. Comparison: Comparison is made to chest radiograph 05/22/2022 FINDINGS: No lines and tubes are seen. The cardiomediastinal silhouette is stable. The lungs are clear. No evidence of pleural effusion or pneumothorax. IMPRESSION: No acute chest disease. ACT 112: Negative or not required by law. Electronically signed by: Cy Osman M.D. 12/30/2022 8:35 AM ECG Data Additional Comments: Sinus rhythm with rate of 73. MA QRS and QTc intervals within normal limits. No ST elevation or ST depression. [facility] Narrative 0742: The patient was evaluated in room B1. A complete history and physical exam was performed Cardiac monitoring: An order was placed for continuous cardiac monitoring. The monitor shows a rate of 80 with paced rhythm interpreted by ma Heart alert was paged. 0749: ICU paged also. Earlier was called and spoke with Dr. Brower informed him of the patient and that the patient most likely needs a transvenous pacemaker is not a STEMI. He states he will be in to see that the patient. Will intubate the patient as she is having extreme pain following transvenously paced. 0800: Dr. Cartagena ICU at bedside. We are able to titrate the patient's external pacemaker down to a rate of 60 and with an amplitude of 40. The patient was conducting on her own in a sinus rhythm with a rate in the 90s. Decision was made not to intubate the patient as she is no longer needing the transcutaneous pacing. Dr. Packer cardiology was made aware of the patient's change in clinical status and requirements of pacing and states he will be down to evaluate the patient. 0821: Dr. Packer at bedside. Decision was made to take the patient to the [facility] for transvenous pacemaker placement. Impression & Plan Syncope, Symptomatic bradycardia Discharge Plan Visit Data Chief Complaint: Cardiac Assessment ED Provider: Chance Bailey Discharge Problem: Syncope, Symptomatic bradycardia Patient Disposition: Admitted As Inpatient Discharge Instructions Interventions: ED Discharge Assessment Last Done: 12/30/22 08:20
[2022-12-30] MEDS: CETIRIZINE HCL 10 MG TABLET PO SCH (19:52)
[2022-12-30] MEDS: GABAPENTIN 100 MG CAP PO SCH (19:53)
[2022-12-30] MEDS: LOVASTATIN 20 MG TAB PO SCH (19:54)
[2022-12-30] MEDS: MONTELUKAST SODIUM 10 MG TABLET PO SCH (19:56)
--- NOTE | 2022-12-30 22:30 | Electrocardiogram Report ---
Test Reason : Blood Pressure : / mmHG Vent. Rate : 073 BPM Atrial Rate : 073 BPM P-R Int : 168 ms QRS Dur : 082 ms QT Int : 436 ms P-R-T Axes : 029 003 055 degrees QTc Int : 480 ms Normal sinus rhythm Low voltage QRS Borderline ECG When compared with ECG of 22-MAY-2022 20:59, No significant change was found Confirmed by Maged Pierre ([id number]) on 12/30/2022 10:30:21 PM Referred By: REFERRED SELF Confirmed By:Maged Pierre
--- NOTE | 2022-12-30 22:35 | Electrocardiogram Report ---
Test Reason : Blood Pressure : / mmHG Vent. Rate : 082 BPM Atrial Rate : 080 BPM P-R Int : 174 ms QRS Dur : 078 ms QT Int : 406 ms P-R-T Axes : 042 009 047 degrees QTc Int : 474 ms Poor data quality, interpretation may be adversely affected Ventricular-paced rhythm with competing sinus rhythm Low voltage QRS Borderline ECG When compared with ECG of 30-DEC-2022 08:00, (unconfirmed) No significant change Confirmed by Maged Pierre ([id number]) on 12/30/2022 10:35:42 PM Referred By: REFERRED SELF Confirmed By:Maged Pierre
[2022-12-31] MEDS: D5NSS + 20MEQ KCL 20 MEQ/1,000 ML BAG IV SCH (02:31)
[2022-12-31 04:38] LABS: Basophils # (auto) 0.02 K/uL (0.00-0.20); Basophils % (auto) 0.2 %; Eosinophils # (auto) 0.15 K/uL (0.00-0.50); Eosinophils % (auto) 1.6 %; Hematocrit (blood only) 37.9 % (37.0-47.0); Hemoglobin 12.3 g/dl (12.0-16.0); Immature Granulocytes # (auto) 0.01 K/uL (0.01-0.20); Immature Granulocytes % (auto) 0.1 %; Lymphocytes # (auto) 1.89 K/uL (1.20-3.40); Lymphocytes % (auto) 20.4 %; Mean Corpuscular Hemoglobin 29.5 pg (25.0-34.0); Mean Corpuscular Hgb Conc 32.5 g/dL (32.0-36.0); Mean Corpuscular Volume 90.9 fL (80.0-100.0); Mean Platelet Volume 10.6 fL (9.4-12.4); Monocytes # (auto) 0.66 K/uL (0.11-0.59); Monocytes % (auto) 7.1 %; Neutrophils # (auto) 6.54 K/uL (1.40-6.50); Neutrophils % (auto) 70.6 %; Platelet Count 242 K/uL (130-400); RDW Coefficient of Variation 14.1 % (11.5-14.5); Red Blood Count 4.17 M/uL (4.20-5.40); White Blood Count 9.27 K/ul (4.8-10.8)
[2022-12-31 04:55] LABS: BUN Creatinine Ratio 14.6 (10-20); Creatinine Clr Calc Pharmacy 61.7 ml/min; Est GFR (African American) 82.9 ml/min; Est GFR (Non-African American) 71.5 ml/min; Magnesium 2.1 mg/dl (1.7-2.4); Potassium 3.6 mmol/L (3.5-5.1)
[2022-12-31] MEDS: POTASSIUM CHLORIDE / WTR 10 MEQ/100 ML PLCT IV SCH ×2 (06:45→11:19)
[2022-12-31] MEDS ORDERED: VANCOMYCIN HCL 1000MG/20ML VIAL ONE (06:59)
[2022-12-31] MEDS ORDERED: BUPIVACAINE 0.25% PF 30 ML VIAL ONE (06:59)
[2022-12-31] MEDS ORDERED: WATER, STERILE FOR INJ 10 ML VIAL ONE (06:59)
[2022-12-31] MEDS ORDERED: LIDOCAINE 1% LOCAL 20 ML VIAL ONE (06:59)
[2022-12-31] MEDS: ICU Protocol for HYPERglycemia SCH ×2 (07:37→11:48)
--- NOTE | 2022-12-31 07:53 | Critical Care Progress Note ---
Date of Service December 31, 2022 Assessment & Plan (1) Symptomatic bradycardia: Plan: Reason Critically Ill: 72-year-old female with symptomatic bradycardia requiring intermittent demand pacing PLAN: Neuro: Chronic pain secondary to arthritis -Home Gabapentin, multimodal pain management -APAP PRN pain/fever Resp: Chronic oxygen dependent COPD with emphysema -2L oxygen at baseline -SpO2 goal 88% -Albuterol PRN CV: Hypertension Paroxysmal A-fib -June cardiology notes indicate patient was started on Eliquis, patient subsequently discontinued, this has not been to communicated to care providers at this time Symptomatic bradycardia -Pending PPM placement this AM Home statin, re-introduce home antihypertensives Fluids/Renal: History of hypokalemia -Replete electrolytes as indicated Stop IVF once taking adequate PO ID: Lyme titer negative No current indication for antibiotic coverage GI/Nutrition: Nausea and vomiting -Zofran as needed Diet: NPO pending PPM, advance as tolerated today Bowel regimen: PRN Stress-ulcer prophylaxis: Home PPI Heme: Meets indication for systemic anticoagulation -Defer to cardiology regarding joint medical decision making and risk benefit analysis given patient's lifestyle and desires DVT prophylaxis: SCDs Endocrine: ICU hyperglycemia protocol, BG goal 140-180 per [facility] guidelines Vascular access: PIVx2 Code Status: Full code Disposition: ICU, likely downgrade s/p PPM (2) Syncope: (3) Nonsustained monomorphic ventricular tachycardia: (4) Chronic respiratory failure with hypoxia: (5) COPD (chronic obstructive pulmonary disease): (6) COPD with emphysema: (7) Paroxysmal A-fib: Admission and Anticipated Discharge Date Admission Date: December 30, 2022 Subjective Ms. Niya Garcia is a pleasant 72YO female with a history of pAF (non- compliant with LTAC), arthritis, emphysematous COPD, hypertension, hyper lipidemia who presented to [facility] after syncope and fall x2. Externally-paced en route to hospital. Received 1 dose of 0.5mg atropine. TVP placed 12/30/22 with good capture. She had no acute events overnight. Paced at 80bpm. Hemodynamically stable. Review of Systems Review of Systems: All systems reviewed & are unremarkable except as noted in HPI & below Physical Exam Constitutional: WD/WN, vitals as above Eyes: PERRL, conjunctivae normal, anicteric sclerae Neck: trachea midline, no thyromegaly Respiratory: normal respiratory effort, lungs clear to auscultation Cardiovascular: RRR, no murmur, no edema Paced rhythm at 60bpm Chest (Breasts): Additional Comments: R chest TVP in place, dressing C/D/I Gastrointestinal (Abdomen): normal bowel sounds, soft, nontender, no hepato splenomegaly Skin: Scattered ecchymosis iatrogenic from vascular access attempts, no hematoma present. No othe rash or lesions Neurologic: PERRL, EOMI, accommodation nl, no face palsy, no dysarthria Results & Data Results & Data Vital Signs (Past 12 Hours) Vital Signs Temp Pulse Resp BP Pulse Ox O2 Del Method O2 Flow Rate 12/31/22 05:40 80 16 97 12/31/22 05:30 80 14 98 12/31/22 05:20 80 18 98 12/31/22 05:10 79 13 96 12/31/22 05:00 80 17 98 12/31/22 05:00 143/76 H 12/31/22 04:50 80 12 96 12/31/22 04:40 80 15 98 12/31/22 04:30 81 14 98 12/31/22 04:20 81 17 99 12/31/22 04:10 80 23 97 12/31/22 04:01 80 13 93 12/31/22 04:01 123/52 L 12/31/22 04:00 75 13 93 12/31/22 03:50 75 16 94 12/31/22 03:40 79 20 95 12/31/22 03:30 80 15 95 12/31/22 03:20 78 17 96 12/31/22 03:10 79 15 96 12/31/22 03:00 79 13 95 12/31/22 03:00 106/73 12/31/22 02:50 78 21 90 12/31/22 02:40 82 17 97 12/31/22 02:34 36.8 C 12/31/22 02:30 68 15 94 12/31/22 02:21 80 13 96 12/31/22 02:10 80 13 95 12/31/22 02:00 138/81 12/31/22 02:00 81 14 94 12/31/22 01:50 64 16 96 12/31/22 01:40 80 14 98 12/31/22 01:30 80 16 95 12/31/22 01:20 80 14 97 12/31/22 01:10 81 12 99 12/31/22 01:00 80 13 92 12/31/22 01:00 137/101 H 12/31/22 00:50 68 14 97 12/31/22 00:40 79 14 99 12/31/22 00:30 81 13 96 12/31/22 00:20 81 14 98 12/31/22 00:10 81 14 95 12/31/22 00:00 123/66 12/31/22 00:00 80 12 94 12/31/22 00:00 80 12/30/22 23:50 80 14 96 12/30/22 23:40 76 17 96 12/30/22 23:30 81 17 97 12/30/22 23:20 79 22 98 12/30/22 23:10 74 11 L 97 12/30/22 23:01 127/78 12/30/22 23:01 79 14 97 12/30/22 23:00 74 10 L 93 12/30/22 22:50 79 13 97 12/30/22 22:40 80 12 97 12/30/22 22:30 74 13 96 12/30/22 22:20 79 14 96 12/30/22 22:10 80 13 98 12/30/22 22:00 125/84 12/30/22 22:00 74 20 12/30/22 21:50 80 12 96 12/30/22 21:40 74 25 H 95 12/30/22 21:30 81 14 87 L 12/30/22 21:20 83 16 94 12/30/22 21:10 79 13 97 12/30/22 21:00 137/77 12/30/22 21:00 80 16 12/30/22 20:55 Nasal Cannula 2 12/30/22 20:50 84 14 96 12/30/22 20:40 82 13 98 12/30/22 20:30 81 14 93 12/30/22 20:20 72 20 96 12/30/22 20:18 36.7 C 12/30/22 20:12 82 17 97 12/30/22 20:12 138/90 12/30/22 20:10 80 20 97 12/30/22 20:00 72 15 90 Coding Level of Care Code 22897 CRITICAL CARE 1ST 30-74M Diagnoses Symptomatic bradycardia R00.1 Syncope R55 Nonsustained monomorphic ventricular tachycardia I47.29 Chronic respiratory failure with hypoxia J96.11 Pulmonary emphysema, unspecified emphysema type J43.9 COPD type: emphysema Emphysema type: unspecified Pulmonary emphysema, unspecified emphysema type J43.9 Emphysema type: unspecified Paroxysmal A-fib I48.0 (5) COPD (chronic obstructive pulmonary disease) COPD type: emphysema Emphysema type: unspecified Qualified Code(s): J43.9 - Emphysema, unspecified (6) COPD with emphysema Emphysema type: unspecified Qualified Code(s): J43.9 - Emphysema, unspecified
[2022-12-31] MEDS ORDERED: ceFAZolin 330 MG/ML 1 GM VIAL ONE (08:39)
[2022-12-31] MEDS ORDERED: MIDAZOLAM HCL 5 MG/ML 1 ML VIAL ONE (08:39)
[2022-12-31] MEDS ORDERED: fentaNYL citrate PF 100 MCG/2 ML VIAL ONE (08:40)
--- NOTE | 2022-12-31 08:56 | History & Physical Bridge Note ---
Date of Service December 31, 2022 History & Physical Bridge Note I have examined the patient, reviewed the History & Physical and in the interval since the performance of the History & Physical I have noted the following changes of clinical significance: pt presented to [facility] due to syncope from sinus arrest; underwent TVP; she is recommended a dual chamber ppm prior to hospital discharge. Discussed the procedure and potential risks with the patient which include but not limited heart attacks, stroke, , arrhythmia, injury to the lung, blood vessels, chambers of the heart, bleeding and infection. Pt expressed an understanding and consents signed.
--- NOTE | 2022-12-31 08:57 | Pre Anesthesia Assessment ---
Date of Service December 31, 2022 Pre Sedation Assessment Vital Signs Temp Pulse Pulse Resp BP BP Pulse Ox 12/31/22 08:27 79 18 129/88 95 12/31/22 05:40 80 16 97 12/31/22 05:30 80 14 98 12/31/22 05:20 80 18 98 12/31/22 05:10 79 13 96 12/31/22 05:00 80 17 98 12/31/22 05:00 143/76 H 12/31/22 04:50 80 12 96 12/31/22 04:40 80 15 98 12/31/22 04:30 81 14 98 12/31/22 04:20 81 17 99 12/31/22 04:10 80 23 97 12/31/22 04:01 80 13 93 12/31/22 04:01 123/52 L 12/31/22 04:00 75 13 93 12/31/22 03:50 75 16 94 12/31/22 03:40 79 20 95 12/31/22 03:30 80 15 95 12/31/22 03:20 78 17 96 12/31/22 03:10 79 15 96 12/31/22 03:00 79 13 95 12/31/22 03:00 106/73 12/31/22 02:50 78 21 90 12/31/22 02:40 82 17 97 12/31/22 02:34 36.8 C 12/31/22 02:30 68 15 94 12/31/22 02:21 80 13 96 12/31/22 02:10 80 13 95 12/31/22 02:00 138/81 12/31/22 02:00 81 14 94 12/31/22 01:50 64 16 96 12/31/22 01:40 80 14 98 12/31/22 01:30 80 16 95 12/31/22 01:20 80 14 97 12/31/22 01:10 81 12 99 12/31/22 01:00 80 13 92 12/31/22 01:00 137/101 H 12/31/22 00:50 68 14 97 12/31/22 00:40 79 14 99 12/31/22 00:30 81 13 96 12/31/22 00:20 81 14 98 12/31/22 00:10 81 14 95 12/31/22 00:00 123/66 12/31/22 00:00 80 12 94 12/31/22 00:00 80 12/30/22 23:50 80 14 96 12/30/22 23:40 76 17 96 12/30/22 23:30 81 17 97 12/30/22 23:20 79 22 98 12/30/22 23:10 74 11 L 97 12/30/22 23:01 127/78 12/30/22 23:01 79 14 97 12/30/22 23:00 74 10 L 93 12/30/22 22:50 79 13 97 12/30/22 22:40 80 12 97 12/30/22 22:30 74 13 96 12/30/22 22:20 79 14 96 12/30/22 22:10 80 13 98 12/30/22 22:00 125/84 12/30/22 22:00 74 20 12/30/22 21:50 80 12 96 12/30/22 21:40 74 25 H 95 12/30/22 21:30 81 14 87 L 12/30/22 21:20 83 16 94 12/30/22 21:10 79 13 97 12/30/22 21:00 137/77 12/30/22 21:00 80 16 12/30/22 20:55 12/30/22 20:50 84 14 96 12/30/22 20:40 82 13 98 12/30/22 20:30 81 14 93 12/30/22 20:20 72 20 96 12/30/22 20:18 36.7 C 12/30/22 20:12 82 17 97 12/30/22 20:12 138/90 12/30/22 20:10 80 20 97 12/30/22 20:00 72 15 90 12/30/22 19:50 71 21 84 L 12/30/22 19:40 80 16 95 12/30/22 19:30 91 H 16 94 12/30/22 19:20 77 12 85 L 12/30/22 19:10 81 19 94 12/30/22 19:01 74 15 96 12/30/22 19:01 134/110 H 12/30/22 19:00 80 17 96 12/30/22 18:50 82 20 95 12/30/22 18:40 71 20 95 12/30/22 18:30 84 19 96 12/30/22 18:20 82 19 94 12/30/22 18:10 79 17 96 12/30/22 18:01 80 18 95 12/30/22 18:00 113/94 12/30/22 17:58 81 15 92 12/30/22 17:01 80 16 98 12/30/22 17:01 96/79 L 12/30/22 17:00 66 15 97 12/30/22 16:00 146/71 H 12/30/22 16:00 87 17 94 12/30/22 16:00 81 12/30/22 15:00 130/87 12/30/22 15:00 72 23 95 12/30/22 14:00 136/91 12/30/22 14:00 67 18 98 12/30/22 13:32 143/100 H 12/30/22 13:32 80 23 96 12/30/22 13:30 149/97 H 12/30/22 13:30 81 22 95 12/30/22 13:30 37.0 C 12/30/22 13:00 143/89 H 12/30/22 13:00 80 16 98 12/30/22 12:31 86 20 91 12/30/22 12:31 135/83 12/30/22 12:30 78 19 94 12/30/22 12:00 81 20 96 12/30/22 11:33 79 15 96 12/30/22 11:30 36.5 C 80 18 144/80 H 92 12/30/22 11:02 74 17 96 12/30/22 10:45 81 18 97 12/30/22 10:45 155/134 H 12/30/22 10:32 86 22 89 L 12/30/22 10:30 36.8 C 12/30/22 10:17 79 14 95 12/30/22 10:15 146/90 H 12/30/22 10:00 36.8 C 12/30/22 09:15 36.6 C 12/30/22 09:15 36.5 C 80 20 169/56 H 90 O2 Del Method O2 Flow Rate 12/31/22 08:27 Nasal Cannula 2 12/31/22 05:40 12/31/22 05:30 12/31/22 05:20 12/31/22 05:10 12/31/22 05:00 12/31/22 05:00 12/31/22 04:50 12/31/22 04:40 12/31/22 04:30 12/31/22 04:20 12/31/22 04:10 12/31/22 04:01 12/31/22 04:01 12/31/22 04:00 12/31/22 03:50 12/31/22 03:40 12/31/22 03:30 12/31/22 03:20 12/31/22 03:10 12/31/22 03:00 12/31/22 03:00 12/31/22 02:50 12/31/22 02:40 12/31/22 02:34 12/31/22 02:30 12/31/22 02:21 12/31/22 02:10 12/31/22 02:00 12/31/22 02:00 12/31/22 01:50 12/31/22 01:40 12/31/22 01:30 12/31/22 01:20 12/31/22 01:10 12/31/22 01:00 12/31/22 01:00 12/31/22 00:50 12/31/22 00:40 12/31/22 00:30 12/31/22 00:20 12/31/22 00:10 12/31/22 00:00 12/31/22 00:00 12/31/22 00:00 12/30/22 23:50 12/30/22 23:40 12/30/22 23:30 12/30/22 23:20 12/30/22 23:10 12/30/22 23:01 12/30/22 23:01 12/30/22 23:00 12/30/22 22:50 12/30/22 22:40 12/30/22 22:30 12/30/22 22:20 12/30/22 22:10 12/30/22 22:00 12/30/22 22:00 12/30/22 21:50 12/30/22 21:40 12/30/22 21:30 12/30/22 21:20 12/30/22 21:10 12/30/22 21:00 12/30/22 21:00 12/30/22 20:55 Nasal Cannula 2 12/30/22 20:50 12/30/22 20:40 12/30/22 20:30 12/30/22 20:20 12/30/22 20:18 12/30/22 20:12 12/30/22 20:12 12/30/22 20:10 12/30/22 20:00 12/30/22 19:50 12/30/22 19:40 12/30/22 19:30 12/30/22 19:20 12/30/22 19:10 12/30/22 19:01 12/30/22 19:01 12/30/22 19:00 12/30/22 18:50 12/30/22 18:40 12/30/22 18:30 12/30/22 18:20 12/30/22 18:10 12/30/22 18:01 12/30/22 18:00 12/30/22 17:58 12/30/22 17:01 12/30/22 17:01 12/30/22 17:00 12/30/22 16:00 12/30/22 16:00 12/30/22 16:00 12/30/22 15:00 12/30/22 15:00 12/30/22 14:00 12/30/22 14:00 12/30/22 13:32 12/30/22 13:32 12/30/22 13:30 12/30/22 13:30 12/30/22 13:30 12/30/22 13:00 12/30/22 13:00 12/30/22 12:31 12/30/22 12:31 12/30/22 12:30 12/30/22 12:00 12/30/22 11:33 12/30/22 11:30 Nasal Cannula 2.0 12/30/22 11:02 12/30/22 10:45 12/30/22 10:45 12/30/22 10:32 12/30/22 10:30 12/30/22 10:17 12/30/22 10:15 12/30/22 10:00 12/30/22 09:15 12/30/22 09:15 Room Air Cardiovascular RRR, no murmur, no edema Respiratory normal respiratory effort, lungs clear to auscultation Pre-Sedation Airway Assessment Smoking Status: Unknown if ever smoked Hx Sleep Apnea: No Short, Thick Neck: No Thyromental Distance: > or= 3.5 Finger Breadths Oral Cavity: + WNL Mallampati Class: II ASA: ASA3 NPO Status Date of Last Intake of Fluids: 12/30/22 Time of Last Intake of Fluids: 08:00 Date of Last Intake of Solid Food: 12/30/22 Time of Last Intake of Solid Foods: 08:00 Procedure Planning Contraindications for Sedation: none Current Medications Reviewed: Yes Notes The planned sedation has been discussed with the patient. Informed Consent was obtained. I have identified the patient, determined the appropriateness of sedation and have assessed the patient immediately prior to the procedure. All medicine(s) and interventions are by my order.
[2022-12-31] MEDS ORDERED: PANTOprazole 40 MG TAB PO SCH (09:00)
--- NOTE | 2022-12-31 09:19 | Cardiology Progress Note ---
Date of Service December 31, 2022 Assessment & Plan (1) Symptomatic bradycardia: (2) Syncope: (3) COPD with emphysema: Plan 72-year-old female with history of past syncopal event possible atrial and ventricular arrhythmias who presented with marked sinus bradycardia, sinus arre st requiring external pacing. Patient underwent coronary angiography without obstructive disease of significance, temporary pacemaker insertion Echocardiogram with preserved LV systolic function and no significant valvular disease No medication contributing Lyme IgM positive but IgG negative. Pattern not consistent with acute Lyme conduction abnormality. We will treat as otherwise in the Plan: Continue support with transvenous pacing Patient on way for dual-chamber pacemaker this morning Admission and Anticipated Discharge Date Admission Date: December 30, 2022 Subjective Patient seen and examined, chart, telemetry reviewed. Feels improved this morning no further syncope. Anticipates pacemaker this more Review of Systems Review of Systems: All systems reviewed & are unremarkable except as noted in Subjective Physical Exam Constitutional: WD/WN, vitals as above no acute distress Eyes: PERRL, conjunctivae normal, anicteric sclerae ENMT: external ear and nose normal, oropharynx normal Neck: trachea midline, no thyromegaly Cardiovascular: Rate/Rhythm: regular rate and regular rhythm Heart Sounds: normal S1 and normal S2; no cardiac rub Vessels: no JVD and no femoral bruit Extremities: no edema Chest (Breasts): Chest: + pacemaker (Right upper chest temporary wire access) Gastrointestinal (Abdomen): normal bowel sounds, soft, nontender, no hepatosplenomegaly Musculoskeletal: no cyanosis or clubbing, extremities motor strength 5/5 Results & Data Vital Signs (Past 12 Hours) Vital Signs Temp Pulse Pulse Resp BP BP Pulse Ox 12/31/22 08:27 79 18 129/88 95 12/31/22 08:00 12/31/22 08:00 12/31/22 08:00 81 12/31/22 05:40 80 16 97 12/31/22 05:30 80 14 98 12/31/22 05:20 80 18 98 12/31/22 05:10 79 13 96 12/31/22 05:00 80 17 98 12/31/22 05:00 143/76 H 12/31/22 04:50 80 12 96 12/31/22 04:40 80 15 98 12/31/22 04:30 81 14 98 12/31/22 04:20 81 17 99 12/31/22 04:10 80 23 97 12/31/22 04:01 80 13 93 12/31/22 04:01 123/52 L 12/31/22 04:00 75 13 93 12/31/22 03:50 75 16 94 12/31/22 03:40 79 20 95 12/31/22 03:30 80 15 95 12/31/22 03:20 78 17 96 12/31/22 03:10 79 15 96 12/31/22 03:00 79 13 95 12/31/22 03:00 106/73 12/31/22 02:50 78 21 90 12/31/22 02:40 82 17 97 12/31/22 02:34 36.8 C 12/31/22 02:30 68 15 94 12/31/22 02:21 80 13 96 12/31/22 02:10 80 13 95 12/31/22 02:00 138/81 12/31/22 02:00 81 14 94 12/31/22 01:50 64 16 96 12/31/22 01:40 80 14 98 12/31/22 01:30 80 16 95 12/31/22 01:20 80 14 97 12/31/22 01:10 81 12 99 12/31/22 01:00 80 13 92 12/31/22 01:00 137/101 H 12/31/22 00:50 68 14 97 12/31/22 00:40 79 14 99 12/31/22 00:30 81 13 96 12/31/22 00:20 81 14 98 12/31/22 00:10 81 14 95 12/31/22 00:00 123/66 12/31/22 00:00 80 12 94 12/31/22 00:00 80 12/30/22 23:50 80 14 96 12/30/22 23:40 76 17 96 12/30/22 23:30 81 17 97 12/30/22 23:20 79 22 98 12/30/22 23:10 74 11 L 97 12/30/22 23:01 127/78 12/30/22 23:01 79 14 97 12/30/22 23:00 74 10 L 93 12/30/22 22:50 79 13 97 12/30/22 22:40 80 12 97 12/30/22 22:30 74 13 96 12/30/22 22:20 79 14 96 12/30/22 22:10 80 13 98 12/30/22 22:00 125/84 12/30/22 22:00 74 20 12/30/22 21:50 80 12 96 12/30/22 21:40 74 25 H 95 12/30/22 21:30 81 14 87 L 12/30/22 21:20 83 16 94 O2 Del Method O2 Flow Rate 12/31/22 08:27 Nasal Cannula 2 12/31/22 08:00 Nasal Cannula 2 12/31/22 08:00 Nasal Cannula 12/31/22 08:00 12/31/22 05:40 12/31/22 05:30 12/31/22 05:20 12/31/22 05:10 12/31/22 05:00 12/31/22 05:00 12/31/22 04:50 12/31/22 04:40 12/31/22 04:30 12/31/22 04:20 12/31/22 04:10 12/31/22 04:01 12/31/22 04:01 12/31/22 04:00 12/31/22 03:50 12/31/22 03:40 12/31/22 03:30 12/31/22 03:20 12/31/22 03:10 12/31/22 03:00 12/31/22 03:00 12/31/22 02:50 12/31/22 02:40 12/31/22 02:34 12/31/22 02:30 12/31/22 02:21 12/31/22 02:10 12/31/22 02:00 12/31/22 02:00 12/31/22 01:50 12/31/22 01:40 12/31/22 01:30 12/31/22 01:20 12/31/22 01:10 12/31/22 01:00 12/31/22 01:00 12/31/22 00:50 12/31/22 00:40 12/31/22 00:30 12/31/22 00:20 12/31/22 00:10 12/31/22 00:00 12/31/22 00:00 12/31/22 00:00 12/30/22 23:50 12/30/22 23:40 12/30/22 23:30 12/30/22 23:20 12/30/22 23:10 12/30/22 23:01 12/30/22 23:01 12/30/22 23:00 12/30/22 22:50 12/30/22 22:40 12/30/22 22:30 12/30/22 22:20 12/30/22 22:10 12/30/22 22:00 12/30/22 22:00 12/30/22 21:50 12/30/22 21:40 12/30/22 21:30 12/30/22 21:20 Laboratory Results Laboratory Results - last 24 hr 12/30/22 12/30/22 12/30/22 10:10 10:18 11:08 WBC RBC Hgb Hct MCV MCH MCHC RDW Std Deviation RDW Coeff of Jc Plt Count MPV Immature Gran % (Auto) Neut % (Auto) Lymph % (Auto) Pender % (Auto) Eos % (Auto) Baso % (Auto) Neut # (Auto) Lymph # (Auto) Pender # (Auto) Eos # (Auto) Baso # (Auto) Immature Gran # (Auto) Sodium Potassium Chloride Carbon Dioxide Anion Gap BUN Creatinine Est Cr Clr Drug Dosing Est GFR ( Amer) Est GFR (Non-Af Amer) BUN/Creatinine Ratio Glucose POC Glucose 94 100 H Calcium Magnesium Nasal Screen MRSA (PCR) Negative 12/30/22 12/30/22 12/31/22 16:24 19:58 04:00 WBC 9.27 RBC 4.17 L Hgb 12.3 Hct 37.9 MCV 90.9 MCH 29.5 MCHC 32.5 RDW Std Deviation 47.0 H RDW Coeff of Jc 14.1 Plt Count 242 MPV 10.6 Immature Gran % (Auto) 0.1 Neut % (Auto) 70.6 Lymph % (Auto) 20.4 Pender % (Auto) 7.1 Eos % (Auto) 1.6 Baso % (Auto) 0.2 Neut # (Auto) 6.54 H Lymph # (Auto) 1.89 Pender # (Auto) 0.66 H Eos # (Auto) 0.15 Baso # (Auto) 0.02 Immature Gran # (Auto) 0.01 Sodium 145 Potassium 3.6 Chloride 112 H Carbon Dioxide 27 Anion Gap 6 BUN 12 Creatinine 0.82 Est Cr Clr Drug Dosing 61.7 Est GFR ( Amer) 82.9 Est GFR (Non-Af Amer) 71.5 BUN/Creatinine Ratio 14.6 Glucose 103 H POC Glucose 112 H 116 H Calcium 9.0 Magnesium 2.1 Nasal Screen MRSA (PCR) 12/31/22 04:07 WBC RBC Hgb Hct MCV MCH MCHC RDW Std Deviation RDW Coeff of Jc Plt Count MPV Immature Gran % (Auto) Neut % (Auto) Lymph % (Auto) Pender % (Auto) Eos % (Auto) Baso % (Auto) Neut # (Auto) Lymph # (Auto) Pender # (Auto) Eos # (Auto) Baso # (Auto) Immature Gran # (Auto) Sodium Potassium Chloride Carbon Dioxide Anion Gap BUN Creatinine Est Cr Clr Drug Dosing Est GFR ( Amer) Est GFR (Non-Af Amer) BUN/Creatinine Ratio Glucose POC Glucose 96 Calcium Magnesium Nasal Screen MRSA (PCR) (2) Syncope Syncope type: unspecified Qualified Code(s): R55 - Syncope and collapse (3) COPD with emphysema Emphysema type: unspecified Qualified Code(s): J43.9 - Emphysema, unspecified
--- NOTE | 2022-12-31 10:14 | Post Anesthesia Assessment ---
Date of Service December 31, 2022 Post Sedation Assessment Vital Signs Temp Pulse Pulse Resp BP BP Pulse Ox 12/31/22 08:27 79 18 129/88 95 12/31/22 08:00 12/31/22 08:00 12/31/22 08:00 81 12/31/22 05:40 80 16 97 12/31/22 05:30 80 14 98 12/31/22 05:20 80 18 98 12/31/22 05:10 79 13 96 12/31/22 05:00 80 17 98 12/31/22 05:00 143/76 H 12/31/22 04:50 80 12 96 12/31/22 04:40 80 15 98 12/31/22 04:30 81 14 98 12/31/22 04:20 81 17 99 12/31/22 04:10 80 23 97 12/31/22 04:01 80 13 93 12/31/22 04:01 123/52 L 12/31/22 04:00 75 13 93 12/31/22 03:50 75 16 94 12/31/22 03:40 79 20 95 12/31/22 03:30 80 15 95 12/31/22 03:20 78 17 96 12/31/22 03:10 79 15 96 12/31/22 03:00 79 13 95 12/31/22 03:00 106/73 12/31/22 02:50 78 21 90 12/31/22 02:40 82 17 97 12/31/22 02:34 36.8 C 12/31/22 02:30 68 15 94 12/31/22 02:21 80 13 96 12/31/22 02:10 80 13 95 12/31/22 02:00 138/81 12/31/22 02:00 81 14 94 12/31/22 01:50 64 16 96 12/31/22 01:40 80 14 98 12/31/22 01:30 80 16 95 12/31/22 01:20 80 14 97 12/31/22 01:10 81 12 99 12/31/22 01:00 80 13 92 12/31/22 01:00 137/101 H 12/31/22 00:50 68 14 97 12/31/22 00:40 79 14 99 12/31/22 00:30 81 13 96 12/31/22 00:20 81 14 98 12/31/22 00:10 81 14 95 12/31/22 00:00 123/66 12/31/22 00:00 80 12 94 12/31/22 00:00 80 12/30/22 23:50 80 14 96 12/30/22 23:40 76 17 96 12/30/22 23:30 81 17 97 12/30/22 23:20 79 22 98 12/30/22 23:10 74 11 L 97 12/30/22 23:01 127/78 12/30/22 23:01 79 14 97 12/30/22 23:00 74 10 L 93 12/30/22 22:50 79 13 97 12/30/22 22:40 80 12 97 12/30/22 22:30 74 13 96 12/30/22 22:20 79 14 96 12/30/22 22:10 80 13 98 12/30/22 22:00 125/84 12/30/22 22:00 74 20 12/30/22 21:50 80 12 96 12/30/22 21:40 74 25 H 95 12/30/22 21:30 81 14 87 L 12/30/22 21:20 83 16 94 12/30/22 21:10 79 13 97 12/30/22 21:00 137/77 12/30/22 21:00 80 16 12/30/22 20:55 12/30/22 20:50 84 14 96 12/30/22 20:40 82 13 98 12/30/22 20:30 81 14 93 12/30/22 20:20 72 20 96 12/30/22 20:18 36.7 C 12/30/22 20:12 82 17 97 12/30/22 20:12 138/90 12/30/22 20:10 80 20 97 12/30/22 20:00 72 15 90 12/30/22 19:50 71 21 84 L 12/30/22 19:40 80 16 95 12/30/22 19:30 91 H 16 94 12/30/22 19:20 77 12 85 L 12/30/22 19:10 81 19 94 12/30/22 19:01 74 15 96 12/30/22 19:01 134/110 H 12/30/22 19:00 80 17 96 12/30/22 18:50 82 20 95 12/30/22 18:40 71 20 95 12/30/22 18:30 84 19 96 12/30/22 18:20 82 19 94 12/30/22 18:10 79 17 96 12/30/22 18:01 80 18 95 12/30/22 18:00 113/94 12/30/22 17:58 81 15 92 12/30/22 17:01 80 16 98 12/30/22 17:01 96/79 L 12/30/22 17:00 66 15 97 12/30/22 16:00 146/71 H 12/30/22 16:00 87 17 94 12/30/22 16:00 81 12/30/22 15:00 130/87 12/30/22 15:00 72 23 95 12/30/22 14:00 136/91 12/30/22 14:00 67 18 98 12/30/22 13:32 143/100 H 12/30/22 13:32 80 23 96 12/30/22 13:30 149/97 H 12/30/22 13:30 81 22 95 12/30/22 13:30 37.0 C 12/30/22 13:00 143/89 H 12/30/22 13:00 80 16 98 12/30/22 12:31 86 20 91 12/30/22 12:31 135/83 12/30/22 12:30 78 19 94 12/30/22 12:00 81 20 96 12/30/22 11:33 79 15 96 12/30/22 11:30 36.5 C 80 18 144/80 H 92 12/30/22 11:02 74 17 96 12/30/22 10:45 81 18 97 12/30/22 10:45 155/134 H 12/30/22 10:32 86 22 89 L 12/30/22 10:30 36.8 C 12/30/22 10:17 79 14 95 12/30/22 10:15 146/90 H O2 Del Method O2 Flow Rate 12/31/22 08:27 Nasal Cannula 2 12/31/22 08:00 Nasal Cannula 2 12/31/22 08:00 Nasal Cannula 12/31/22 08:00 12/31/22 05:40 12/31/22 05:30 12/31/22 05:20 12/31/22 05:10 12/31/22 05:00 12/31/22 05:00 12/31/22 04:50 12/31/22 04:40 12/31/22 04:30 12/31/22 04:20 12/31/22 04:10 12/31/22 04:01 12/31/22 04:01 12/31/22 04:00 12/31/22 03:50 12/31/22 03:40 12/31/22 03:30 12/31/22 03:20 12/31/22 03:10 12/31/22 03:00 12/31/22 03:00 12/31/22 02:50 12/31/22 02:40 12/31/22 02:34 12/31/22 02:30 12/31/22 02:21 12/31/22 02:10 12/31/22 02:00 12/31/22 02:00 12/31/22 01:50 12/31/22 01:40 12/31/22 01:30 12/31/22 01:20 12/31/22 01:10 12/31/22 01:00 12/31/22 01:00 12/31/22 00:50 12/31/22 00:40 12/31/22 00:30 12/31/22 00:20 12/31/22 00:10 12/31/22 00:00 12/31/22 00:00 12/31/22 00:00 12/30/22 23:50 12/30/22 23:40 12/30/22 23:30 12/30/22 23:20 12/30/22 23:10 12/30/22 23:01 12/30/22 23:01 12/30/22 23:00 12/30/22 22:50 12/30/22 22:40 12/30/22 22:30 12/30/22 22:20 12/30/22 22:10 12/30/22 22:00 12/30/22 22:00 12/30/22 21:50 12/30/22 21:40 12/30/22 21:30 12/30/22 21:20 12/30/22 21:10 12/30/22 21:00 12/30/22 21:00 12/30/22 20:55 Nasal Cannula 2 12/30/22 20:50 12/30/22 20:40 12/30/22 20:30 12/30/22 20:20 12/30/22 20:18 12/30/22 20:12 12/30/22 20:12 12/30/22 20:10 12/30/22 20:00 12/30/22 19:50 12/30/22 19:40 12/30/22 19:30 12/30/22 19:20 12/30/22 19:10 12/30/22 19:01 12/30/22 19:01 12/30/22 19:00 12/30/22 18:50 12/30/22 18:40 12/30/22 18:30 12/30/22 18:20 12/30/22 18:10 12/30/22 18:01 12/30/22 18:00 12/30/22 17:58 12/30/22 17:01 12/30/22 17:01 12/30/22 17:00 12/30/22 16:00 12/30/22 16:00 12/30/22 16:00 12/30/22 15:00 12/30/22 15:00 12/30/22 14:00 12/30/22 14:00 12/30/22 13:32 12/30/22 13:32 12/30/22 13:30 12/30/22 13:30 12/30/22 13:30 12/30/22 13:00 12/30/22 13:00 12/30/22 12:31 12/30/22 12:31 12/30/22 12:30 12/30/22 12:00 12/30/22 11:33 12/30/22 11:30 Nasal Cannula 2.0 12/30/22 11:02 12/30/22 10:45 12/30/22 10:45 12/30/22 10:32 12/30/22 10:30 12/30/22 10:17 12/30/22 10:15 Recovery Score Activity: Moves 4 extremities Respiration: Deep Breath/Cough Circulation: +/-20% PreAnes Value Consciousness: Fully Awake Oxygen Saturation: > 92% On Room Air Discharge Sedation Level of Care: Fast Track Phase II Post Sedation Plan On clinical assessment, the patient appears to have tolerated the sedation without complications. Patient is recovering as anticipated. Patient will continue to be monitored by nursing and may be discharged when sedation discharge criteria are met per below protocol. Upon Completions of procedure up to 15 minutes continue every 5 minute vital signs and the P.A.R. score; then discharge to a Phase I or Fast Track to Phase II per the following guidelines: * Discharge Patient to appropriate Phase II area if PAR is 8 or greater or return to pre- procedure baseline. The post - procedure orders will be as directed. * If PAR score is less than 8 or not return to pre-procedure baseline then patient will follow Phase I monitoring till PAR is reached for Phase II. The Phase I may be done in procedure room or may call to secure a Phase I area. * If naloxone or flumazenil are used for reversal, hold in Phase I for continued monitoring from when last reversal dose was given for a minimum of 60 minutes or longer pending the nurse and/or physician discretion of patient condition before discharge to Phase II. Please call the Sedation Physician to re-evaluate and complete post-note for discharge to Phase II area. Do NOT discharge from procedure sedation or Phase 1 until post- sedation evaluation note is complete by procedure /sedation MD Sedation Discharge Instructions to be given to the patient at discharge to home.
--- NOTE | 2022-12-31 10:25 | Operative Report ---
Post Operative Report DICTATED BY:Sharon Gonzalez D.O. DATE OF PROCEDURE: 12/31/2022. PREOPERATIVE DIAGNOSES: Syncope and sinus arrest POSTOPERATIVE DIAGNOSIS: Same PROCEDURE: A dual-chamber rate responsive permanent pacemaker and intracardiac electrogram His bundle recordings, along with a peripheral venogram under fluoroscopic guidance. followed by extraction of TVP SURGEON: Sharon Gonzalez DO ASSISTANTS: None. ANESTHESIA: Monitored conscious sedation administered under my supervision by Dionte Ybarra. Start time 9:18 end time 10:12, a total of 4 mg of Versed and 100 mcg of fentanyl. INTRAVENOUS FLUIDS: 75 mL. CONTRAST: 12 mL. ANTIBIOTICS: 1 grams of Ancef. BLOOD LOSS: 40 mL. URINE OUTPUT: Not applicable. SPECIMENS: None. FINDINGS: See below. DRAINS: None. COMPLICATIONS: None. CONDITION: Stable. INDICATIONS: This is a 7e-year-old female who has a past medical history Pt was admitted to [facility] due to syncope secondary to recurrent sinus arrest; she underwent an urgent TVP and cardiac catheterization. She was recommended a dual chamber ppm prior to hospital discharge. CONSENT: Consent was obtained prior to the patient going into the electrophysiology lab. The patient was informed of the risks, benefits, and alternatives to the procedure. Risks include, but not limited to, sudden cardiac , cardiac arrhythmias, cerebrovascular accident, myocardial infarction, injury to his blood vessels, chamber of the heart and lung, bleeding and infection. The patient understood these risks and agreed to the procedure as planned. Informed consent was obtained. DESCRIPTION OF PROCEDURE: The patient was brought into electrophysiology lab in a fasting state. She was connected to continuous cardiac monitoring. A timeout was performed to ensure the patient's identity and procedure correctly. She was prepped and draped in the left infraclavicular space in normal surgical standard fashion. Monitored conscious sedation was given throughout the procedure for the patient's comfort level. [place] precautions were maintained throughout the procedure. Prophylactic antibiotics were given prior to incision. A 20 mL of 1% lidocaine and bupivacaine mixture were given in the left deltopectoral groove. An incision was made in the left deltopectoral groove. Blunt dissection was performed down to the pectoralis muscle. Then, using blunt dissection over the pectoralis muscle within the pectoral fascia, a pacemaker pocket was created. Then, a peripheral venogram was performed to identify the axillary vein. Venous axillary access was obtained through a needlestick without any problems. A guidewire was inserted without any resistance. A 7-[place] sheath was inserted over the guidewire without any resistance. Dilator was removed and a second guidewire was inserted through the sheath to allow for retained venous access. of note I was concerned of a possible PTX so I put the patient on 100% non- rebreather for the duration of the procedure. The dilator was flushed and prepped back over a 7 [place] sheath, then we inserted over one of the guidewires. The guidewire and dilator were removed. Then, the His C315 sheath was inserted through the 7-[place] sheath over a Glidewire into the right ventricle. The Glidewire and dilator were removed. Then, the left bundle lead was advanced through the His C315 sheath and intracardiac electrogram His bundle recordings were performed when the camera was in PARK 10. Once I found where the His bundle is, see below for results, I then moved the camera to PARK 30 and marked where the His bundle was on my fluoroscopy screen. I came down about 2 cm from this in a line that would extend out to the apex and then started coming on pacing. Once I found an area where I had a nice W formed pace complex in my lead V1, I then moved the camera to UKRA[place] 30 and started giving a series of clockwise turns to screw the lead into the septum pausing once in a while to see how my pacing complex changed. Once I developed a nice R prime, I then gave contrast through the sheath to see how far the lead was into the septum and then I slit the His C315 sheath under fluoroscopic guidance and left the 7-[place] sheath in while I positioned the right atrial lead. A second 7-[place] sheath was inserted over the retained guidewire, the guidewire and dilator removed. The right atrial lead was then advanced into right atrium and positioned into right atrial appendage under fluoroscopic guidance. There was adequate pacing and sensing thresholds and no diaphragmatic stimulation with high output pacing. The 7-[place] sheath was peeled away and the lead was fixated to the pectoralis muscle using 0 silk suture. The 7-[place] sheath around the left bundle lead was peeled away and the lead was fixated to pectoralis muscle using 0 silk suture. The TVP was removed by fatou extraction under fluoroscopic guidance. The pocket was flushed with copious amounts of vancomycin and saline wash and inspected for hemostasis. The leads were then attached to the pulse generator making sure the pins were in appropriate position, passed set screws, and set screws were all tightened. Pulse generator was then placed in the antibiotic pouch followed then by being placed in the pocket, making sure the leads were lying flat beneath the device. The incision was closed in a 3-layer fashion using 2-0 Vicryl interrupted suture, followed by 3-0 Vicryl interrupted suture, followed by 4-0 Monocryl running stitch. A primaseal dressing was placed. EQUIPMENT: 1. Pulse generator is a LED Engin Nataliia XT DR RODERICK Dailey [id number], serial number [id number]. 2. Right atrial lead, Medtronic 5076-52 cm, serial number [id number]. 3. Left bundle lead, Medtronic 3830-69 cm, serial number [id number]. INTRAPROCEDURAL FINDINGS: 1. Intracardiac electrogram His bundle recordings, AH is 74 milliseconds, HV is 43 milliseconds. 2. Right atrial lead, P waves 2.8 millivolts, impedance 850 ohms, threshold 0.6 volts at 0.5 milliseconds. 3. Left bundle lead, R waves 7 millivolts, impedance 824 ohms, threshold 0.4 volts at 0.5 milliseconds. FINAL MEASUREMENTS THROUGH THE DEVICE: 1. Right atrial lead, P waves 1.5 millivolts, impedance 703 ohms, threshold 0.5 volt at 0.4 milliseconds. 2. Left bundle lead, R waves 8.9 millivolts, impedance 703 ohms, threshold 0.5 volts at 0.4 milliseconds. FINAL PARAMETERS: MVP 60/130, right atrial amplitude 3.5 volts, pulse width 0.4 milliseconds, sensitivity 0.3 millivolts. Left bundle lead amplitude 3.5 volts, pulse width 0.4 milliseconds, sensitivity 1.2 millivolts. IMPRESSION: Successful dual chamber rate responsive permanent pacemaker under fluoroscopic guidance along with peripheral venogram and intracardiac electrogram His bundle recordings, followed by TVP extraction all under fluoroscopic guidance secondary to syncope due to sinus arrest. PLAN: Monitor the patient post-procedure. A 12-lead ECG, chest x-ray in a few hours. Recheck the device in a few hours. Transfer back to telemetry. She is not to lift the left elbow or left shoulder for 1 month. She cannot lift more than 10 pounds with the left arm for 2 weeks. She is to keep the dressing on and dry until his wound check next week.
[2022-12-31] MEDS: PANTOprazole 40 MG TAB PO SCH (11:28)
--- NOTE | 2022-12-31 11:38 | XRay Report ---
SINGLE VIEW CHEST CLINICAL HISTORY: Pacemaker implantation. FINDINGS: An AP, portable, upright chest radiograph is compared to study dated 12/30/2022 and correlat ed with chest CT dated 05/23/2022. A 2-lead cardiac pacemaker has been placed and partially obscures t he left mid chest. Leads project over the right atrial appendage and right ventricle. The heart is en larged denoting atherosclerotic calcification of the thoracic aorta. The pulmonary vasculature is non congested. Emphysema and chronic interstitial thickening is similar to previous. No airspace consolid ation or large pleural effusion is identified. No pneumothorax is seen. The skeletal structures are o steopenic. The bony thorax is grossly intact. IMPRESSION: 1. A 2-lead cardiac pacemaker has been implanted as above. No pneumothorax is identified post procedu re. 2. Cardiomegaly and emphysema. 3. There is no radiographic evidence of congestive failure. ACT 112: Negative or not required by law. Electronically signed by: Aryan Parks M.D. 12/31/2022 11:37 AM
[2022-12-31] MEDS: FLUTICASONE FUROATE 200MCG 14 PUFFS/INHALER INH SCH (11:41)
[2022-12-31] MEDS: UMECLIDINIUM/VILANTEROL 62.5/25MCG 7 PUFFS/INHALER INH SCH (11:42)
--- NOTE | 2022-12-31 12:41 | XRay Report ---
SINGLE VIEW CHEST CLINICAL HISTORY: Follow-up status post pacemaker implantation. FINDINGS: An AP, portable, upright chest radiograph is compared to study dated performed earlier the same day 12/31/2022 and correlated with chest CT dated 05/23/2022. A 2-lead cardiac pacemaker is unchan ged in position partially obscures the left mid chest. The heart is enlarged denoting atherosclerotic calcification of the thoracic aorta. The pulmonary vasculature is noncongested. Emphysema and chroni c interstitial thickening is similar to previous. No airspace consolidation or large pleural effusion is identified. No pneumothorax is seen. The skeletal structures are osteopenic. The bony thorax is g rossly intact. IMPRESSION: 1. A 2-lead cardiac pacemaker is unchanged in position. No pneumothorax is identified post procedure. 2. Cardiomegaly and emphysema. 3. There is no radiographic evidence of congestive failure. ACT 112: Negative or not required by law. Electronically signed by: Aryan Parks M.D. 12/31/2022 12:39 PM
[2022-12-31] MEDS: cefTRIAXone SODIUM 2,000 MG in DEXTROSE 5 % MINI-B 50 ML IV SCH (13:16)
[2022-12-31] MEDS ORDERED: ATROPINE SULFATE 0.1 MG/ML 10ML SYR IV ONE (13:57)
[2022-12-31] MEDS ORDERED: fentaNYL citrate 100 MCG/2 ML CARP IV ONE (13:57)
--- NOTE | 2022-12-31 14:47 | Hospitalist Progress Note ---
Date of Service December 31, 2022 Assessment & Plan (1) Symptomatic bradycardia: (2) Syncope: Plan: [place] IGM: positive Western Blot: pending TSH: normal s/p dual chamber rate responsive permanent pacemaker placement by Dr. Gonzalez Day #2 Ceftriaxone IV anticipate PO Doxycycline BID upon discharge Maalox, Protonix for epigastric pain COPD not in exacerbation continue Trelegy CHD Diastolic Grade 1 euvolemic DVT prophylaxis SCDs for now plan of care discussed with patient in detail all questions answered she is understanding, agreeable, comfortable with the plan of care Admission and Anticipated Discharge Date Admission Date: December 30, 2022 Subjective ff up for symptomatic bradycardia, etc seen resting in bed, comfortable s/p pacemaker placement states she feels fine overall no chest pain, dyspnea, palpitations, dizziness no pain over the PM site no other new symptoms Review of Systems Review of Systems: all noted and negative except for above Physical Exam Physical Exam: General- oriented x 3, not in distress, speaks in sentences with no effort or accessory muscle use Eyes- anicteric Neck- no JVD Lungs- clear breath sounds bilaterally, no rales/wheezes Heart- normal rate, regular rhythm; no murmurs PM site: no bleeding or discharge Abdomen- normal bowel sounds, nondistended, soft, nontender Extremities- no pretibial edema, no calf tenderness Neuro- alert, oriented x 3; no gross focal neurologic deficits Skin- warm & dry Results & Data Results & Data Vital Signs (Past 12 Hours) Vital Signs Pulse Pulse Pulse Resp BP BP Pulse Ox 12/31/22 13:00 70 24 95 12/31/22 13:00 133/70 12/31/22 12:32 68 27 H 98 12/31/22 12:00 73 18 12/31/22 11:40 141/93 H 12/31/22 11:40 98 H 23 12/31/22 11:30 72 15 70 L 12/31/22 11:10 74 13 92 12/31/22 10:45 69 16 107/67 94 12/31/22 10:30 92 H 16 101/65 95 12/31/22 08:27 79 18 129/88 95 12/31/22 08:00 12/31/22 08:00 12/31/22 08:00 81 12/31/22 05:40 80 16 97 12/31/22 05:30 80 14 98 12/31/22 05:20 80 18 98 12/31/22 05:10 79 13 96 12/31/22 05:00 80 17 98 12/31/22 05:00 143/76 H 12/31/22 04:50 80 12 96 12/31/22 04:40 80 15 98 12/31/22 04:30 81 14 98 12/31/22 04:20 81 17 99 12/31/22 04:10 80 23 97 12/31/22 04:01 80 13 93 12/31/22 04:01 123/52 L 12/31/22 04:00 75 13 93 12/31/22 03:50 75 16 94 12/31/22 03:40 79 20 95 12/31/22 03:30 80 15 95 12/31/22 03:20 78 17 96 12/31/22 03:10 79 15 96 12/31/22 03:00 79 13 95 12/31/22 03:00 106/73 12/31/22 02:50 78 21 90 O2 Del Method O2 Flow Rate 12/31/22 13:00 12/31/22 13:00 12/31/22 12:32 12/31/22 12:00 12/31/22 11:40 12/31/22 11:40 12/31/22 11:30 12/31/22 11:10 12/31/22 10:45 Room Air 12/31/22 10:30 Room Air 12/31/22 08:27 Nasal Cannula 2 12/31/22 08:00 Nasal Cannula 2 12/31/22 08:00 Nasal Cannula 12/31/22 08:00 12/31/22 05:40 12/31/22 05:30 12/31/22 05:20 12/31/22 05:10 12/31/22 05:00 12/31/22 05:00 12/31/22 04:50 12/31/22 04:40 12/31/22 04:30 12/31/22 04:20 12/31/22 04:10 12/31/22 04:01 12/31/22 04:01 12/31/22 04:00 12/31/22 03:50 12/31/22 03:40 12/31/22 03:30 12/31/22 03:20 12/31/22 03:10 12/31/22 03:00 12/31/22 03:00 12/31/22 02:50 all noted and reviewed including below
--- NOTE | 2022-12-31 15:26 | Electrocardiogram Report ---
Test Reason : Blood Pressure : / mmHG Vent. Rate : 070 BPM Atrial Rate : 070 BPM P-R Int : 174 ms QRS Dur : 080 ms QT Int : 402 ms P-R-T Axes : 034 025 056 degrees QTc Int : 434 ms Normal sinus rhythm Normal ECG When compared with ECG of 30-DEC-2022 09:42, Sinus rhythm has replaced Electronic ventricular pacemaker Confirmed by Vincent Pinto ([id number]) on 12/31/2022 3:25:45 PM Referred By: REFERRED SELF Confirmed By:Vincent Pinto
[2022-12-31] MEDS: CETIRIZINE HCL 10 MG TABLET PO SCH (20:06)
[2022-12-31] MEDS: GABAPENTIN 100 MG CAP PO SCH (20:07)
[2022-12-31] MEDS: MONTELUKAST SODIUM 10 MG TABLET PO SCH (20:07)
[2022-12-31] MEDS: LOVASTATIN 20 MG TAB PO SCH (20:07)
[2023-01-01 05:14] LABS: Hematocrit (blood only) 35.1 % (37.0-47.0); Hemoglobin 11.5 g/dl (12.0-16.0); Mean Corpuscular Volume 90.7 fL (80.0-100.0); Red Blood Count 3.87 M/uL (4.20-5.40); White Blood Count 7.51 K/ul (4.8-10.8)
[2023-01-01 05:15] LABS: Basophils # (auto) 0.03 K/uL (0.00-0.20); Basophils % (auto) 0.4 %; Eosinophils # (auto) 0.32 K/uL (0.00-0.50); Eosinophils % (auto) 4.3 %; Immature Granulocytes # (auto) 0.02 K/uL (0.01-0.20); Immature Granulocytes % (auto) 0.3 %; Lymphocytes # (auto) 1.69 K/uL (1.20-3.40); Lymphocytes % (auto) 22.5 %; Mean Corpuscular Hemoglobin 29.7 pg (25.0-34.0); Mean Corpuscular Hgb Conc 32.8 g/dL (32.0-36.0); Mean Platelet Volume 10.5 fL (9.4-12.4); Monocytes # (auto) 0.57 K/uL (0.11-0.59); Monocytes % (auto) 7.6 %; Neutrophils # (auto) 4.88 K/uL (1.40-6.50); Neutrophils % (auto) 64.9 %; Platelet Count 199 K/uL (130-400); RDW Coefficient of Variation 13.7 % (11.5-14.5); RDW Standard Deviation 45.9 fL (36.4-46.3)
[2023-01-01 05:31] LABS: BUN Creatinine Ratio 15.5 (10-20); Calcium 8.7 mg/dl (8.6-10.3); Creatinine Clr Calc Pharmacy 69.6 ml/min; Est GFR (African American) 98.6 ml/min; Est GFR (Non-African American) 85.1 ml/min; Magnesium 1.9 mg/dl (1.7-2.4); Potassium 3.6 mmol/L (3.5-5.1)
[2023-01-01] MEDS: FLUTICASONE FUROATE 200MCG 14 PUFFS/INHALER INH SCH ×2 (08:32→08:34)
[2023-01-01] MEDS: UMECLIDINIUM/VILANTEROL 62.5/25MCG 7 PUFFS/INHALER INH SCH ×2 (08:32→08:34)
[2023-01-01] MEDS: PANTOprazole 40 MG TAB PO SCH (08:32)
--- NOTE | 2023-01-01 11:47 | XRay Report ---
XR chest 2V PA/lateral HISTORY: S/P Pacemaker check lead position COMPARISON: Chest 12/31/2022. FINDINGS: No pneumothorax. No pleural effusions. No evidence for pulmonary edema. No new focal lung c onsolidations to suggest a pneumonia. The cardiac silhouette is top normal in size. There are calcifi cations within the aortic knob. There is left-sided dual-chamber pacemaker again noted. The ventricul ar lead appears to have been slightly pulled back compared to the original study. IMPRESSION: 1. Left-sided dual-chamber pacemaker again noted. The ventricular lead appears to have been slightly pulled back compared to the prior study. 2. No pneumothorax. ACT 112: Negative or not required by law. Electronically signed by: Myles Nolasco M.D. 01/01/2023 11:45 AM
[2023-01-01] MEDS: cefTRIAXone SODIUM 2,000 MG in DEXTROSE 5 % MINI-B 50 ML IV SCH (13:12)
--- NOTE | 2023-01-01 14:14 | Cardiology Progress Note ---
Date of Service January 01, 2023 Assessment & Plan (1) Symptomatic bradycardia: (2) Syncope: (3) COPD with emphysema: Plan 72-year-old female with history of past syncopal event possible atrial and ventricular arrhythmias who presented with marked sinus bradycardia, sinus arre st requiring external pacing. Patient underwent coronary angiography without obstructive disease of significance, temporary pacemaker insertion Echocardiogram with preserved LV systolic function and no significant valvular disease No medication contributing Lyme IgM positive but IgG negative. Pattern not consistent with acute Lyme conduction abnormality. We will treat as otherwise in the Impression: Symptomatic bradycardia status post dual-chamber pacemaker insertion 12/31/2022 Given symptoms of dizziness and occasional inappropriate pacing last night repeat device interrogation and chest x-ray ordered with to be fully assessed prior to discharge Addendum pacemaker leads have migrated. Capture able to be maintained but will need repositioning Discussed in detail with patient and her N.p.o. after midnight tonight Admission and Anticipated Discharge Date Admission Date: December 30, 2022 Subjective Patient seen and examined, chart, telemetry reviewed. No acute complaints but 1 episode of mild dizziness last night Underwent permanent dual-chamber pacemaker insertion yesterday without difficulty Pacemaker interrogation repeat pending Physical Exam Constitutional: WD/WN, vitals as above no acute distress Eyes: PERRL, conjunctivae normal, anicteric sclerae ENMT: external ear and nose normal, oropharynx normal Neck: trachea midline, no thyromegaly Cardiovascular: Rate/Rhythm: regular rate and regular rhythm Heart Sounds: normal S1 and normal S2; no cardiac rub Vessels: no JVD and no femoral bruit Extremities: no edema Chest (Breasts): Chest: + pacemaker (Right upper chest temporary wire access) Gastrointestinal (Abdomen): normal bowel sounds, soft, nontender, no hepatosplenomegaly Musculoskeletal: no cyanosis or clubbing, extremities motor strength 5/5 Results & Data Vital Signs (Past 12 Hours) Vital Signs Temp Pulse Pulse Resp BP Pulse Ox O2 Del Method 01/01/23 11:46 36.8 C 80 18 131/87 95 Room Air 01/01/23 09:44 Room Air 01/01/23 08:00 76 01/01/23 07:51 36.7 C 72 18 164/80 H 97 Room Air 01/01/23 03:36 36.9 C 69 20 127/76 97 Nasal Cannula O2 Flow Rate 01/01/23 11:46 01/01/23 09:44 01/01/23 08:00 01/01/23 07:51 01/01/23 03:36 3 Laboratory Results Laboratory Results - last 24 hr 01/01/23 04:27 WBC 7.51 RBC 3.87 L Hgb 11.5 L Hct 35.1 L MCV 90.7 MCH 29.7 MCHC 32.8 RDW Std Deviation 45.9 RDW Coeff of Jc 13.7 Plt Count 199 MPV 10.5 Immature Gran % (Auto) 0.3 Neut % (Auto) 64.9 Lymph % (Auto) 22.5 [place] % (Auto) 7.6 Eos % (Auto) 4.3 Baso % (Auto) 0.4 Neut # (Auto) 4.88 Lymph # (Auto) 1.69 [place] # (Auto) 0.57 Eos # (Auto) 0.32 Baso # (Auto) 0.03 Immature Gran # (Auto) 0.02 Sodium 140 Potassium 3.6 Chloride 109 H Carbon Dioxide 25 Anion Gap 6 BUN 11 Creatinine 0.71 Est Cr Clr Drug Dosing 69.6 Est GFR ( Amer) 98.6 Est GFR (Non-Af Amer) 85.1 BUN/Creatinine Ratio 15.5 Glucose 97 Calcium 8.7 Magnesium 1.9 (2) Syncope Syncope type: unspecified Qualified Code(s): R55 - Syncope and collapse (3) COPD with emphysema Emphysema type: unspecified Qualified Code(s): J43.9 - Emphysema, unspecified
--- NOTE | 2023-01-01 16:23 | Hospitalist Progress Note ---
Date of Service January 01, 2023 Assessment & Plan (1) Symptomatic bradycardia: (2) Syncope: Plan: Lyme IGM: positive Western Blot: pending TSH: normal s/p dual chamber rate responsive permanent pacemaker placement by Dr. Gonzalez 12/31/2022 Evaluation today reveals lead migration, plan for repositioning tomorrow N.p.o. after midnight Day #3 Ceftriaxone IV anticipate PO Doxycycline BID to complete 14-day course upon discharge Maalox, Protonix for epigastric pain COPD not in exacerbation continue Trelegy CHD Diastolic Grade 1 euvolemic DVT prophylaxis SCDs for now plan of care discussed with patient in detail all questions answered she is understanding, agreeable, comfortable with the plan of care Admission and Anticipated Discharge Date Admission Date: December 30, 2022 Subjective Follow-up for symptomatic bradycardia, syncope, etc. Seen resting in bedside chair, comfortable, in good spirits States she feels better overall no chest pain, dyspnea, palpitations, dizziness No fevers or chills No other new symptoms Review of Systems Review of Systems: all noted and negative except for above Physical Exam Physical Exam: General- oriented x 3, not in distress, speaks in sentences with no effort or accessory muscle use Eyes- anicteric Neck- no JVD Lungs- clear breath sounds bilaterally, no rales/wheezes Heart- normal rate, regular rhythm; no murmurs Pacemaker site: No hematoma, bleeding Abdomen- normal bowel sounds, nondistended, soft, nontender Extremities- no pretibial edema, no calf tenderness Neuro- alert, oriented x 3; no gross focal neurologic deficits Skin- warm & dry Results & Data Results & Data Vital Signs (Past 12 Hours) Vital Signs Temp Pulse Pulse Resp BP Pulse Ox O2 Del Method 01/01/23 16:00 122 H 01/01/23 15:53 36.7 C 101 H 18 152/77 H 94 Room Air 01/01/23 11:46 36.8 C 80 18 131/87 95 Room Air 01/01/23 09:44 Room Air 01/01/23 08:00 76 01/01/23 07:51 36.7 C 72 18 164/80 H 97 Room Air all noted and reviewed including below
[2023-01-01] MEDS: LOVASTATIN 20 MG TAB PO SCH (20:06)
[2023-01-01] MEDS: GABAPENTIN 100 MG CAP PO SCH (20:07)
[2023-01-01] MEDS: MONTELUKAST SODIUM 10 MG TABLET PO SCH (20:07)
[2023-01-01] MEDS: CETIRIZINE HCL 10 MG TABLET PO SCH (20:08)
[2023-01-02 03:37] LABS: 18KDIGG Band NON-REACTIVE; 23KDIGG Band NON-REACTIVE; 23KDIGM Band NON-REACTIVE; 28KDIGG Band NON-REACTIVE; 30KDIGG Band NON-REACTIVE; 39KDIGG Band NON-REACTIVE; 39KDIGM Band NON-REACTIVE; 41KDIGG Band NON-REACTIVE; 41KDIGM Band NON-REACTIVE; 45KDIGG Band NON-REACTIVE; 58KDIGG Band NON-REACTIVE; 66KDIGG Band NON-REACTIVE; 93KDIGG Band NON-REACTIVE; Lyme Antibodies, WB IgG NEGATIVE (NEGATIVE); Lyme Antibodies, WB IgM NEGATIVE (NEGATIVE)
[2023-01-02 06:43] LABS: Basophils # (auto) 0.04 K/uL (0.00-0.20); Basophils % (auto) 0.4 %; Eosinophils # (auto) 0.46 K/uL (0.00-0.50); Eosinophils % (auto) 4.8 %; Hematocrit (blood only) 38.6 % (37.0-47.0); Hemoglobin 12.7 g/dl (12.0-16.0); Immature Granulocytes # (auto) 0.02 K/uL (0.01-0.20); Immature Granulocytes % (auto) 0.2 %; Lymphocytes # (auto) 2.28 K/uL (1.20-3.40); Lymphocytes % (auto) 23.9 %; Mean Corpuscular Hemoglobin 29.2 pg (25.0-34.0); Mean Corpuscular Hgb Conc 32.9 g/dL (32.0-36.0); Mean Corpuscular Volume 88.7 fL (80.0-100.0); Mean Platelet Volume 10.9 fL (9.4-12.4); Monocytes % (auto) 7.3 %; Neutrophils # (auto) 6.04 K/uL (1.40-6.50); Neutrophils % (auto) 63.4 %; Platelet Count 223 K/uL (130-400); RDW Coefficient of Variation 13.7 % (11.5-14.5); RDW Standard Deviation 44.8 fL (36.4-46.3); Red Blood Count 4.35 M/uL (4.20-5.40); White Blood Count 9.54 K/ul (4.8-10.8)
[2023-01-02 07:28] LABS: Calcium 9.2 mg/dl (8.6-10.3); Magnesium 2.1 mg/dl (1.7-2.4); Potassium 3.6 mmol/L (3.5-5.1)
[2023-01-02 07:34] LABS: BUN Creatinine Ratio 15.1 (10-20); Creatinine Clr Calc Pharmacy 68.7 ml/min; Est GFR (African American) 95.4 ml/min; Est GFR (Non-African American) 82.3 ml/min
[2023-01-02] MEDS: UMECLIDINIUM/VILANTEROL 62.5/25MCG 7 PUFFS/INHALER INH SCH (08:28)
[2023-01-02] MEDS: FLUTICASONE FUROATE 200MCG 14 PUFFS/INHALER INH SCH (08:28)
[2023-01-02] MEDS: PANTOprazole 40 MG TAB PO SCH (08:29)
--- NOTE | 2023-01-02 11:24 | Cardiology Progress Note ---
Date of Service January 02, 2023 Assessment & Plan (1) Symptomatic bradycardia: (2) Syncope: (3) COPD with emphysema: Plan 72-year-old female with history of past syncopal event possible atrial and ventricular arrhythmias who presented with marked sinus bradycardia, sinus arre st requiring external pacing. Patient underwent coronary angiography without obstructive disease of significance, temporary pacemaker insertion Echocardiogram with preserved LV systolic function and no significant valvular disease No medication contributing Lyme IgM positive but IgG negative. Pattern not consistent with acute Lyme conduction abnormality. We will treat as otherwise in the Impression: Symptomatic bradycardia status post dual-chamber pacemaker insertion 12/31/2022 Given symptoms of dizziness and occasional inappropriate pacing last night repeat device interrogation and chest x-ray ordered with to be fully assessed prior to discharge Addendum pacemaker leads have migrated. Capture able to be maintained but will need repositioning Discussed in detail with patient and her N.p.o. after midnight tonight 01/02/2023 Patient hemodynamically stable with pacemaker to be reassessed today with likely lead revision Admission and Anticipated Discharge Date Admission Date: December 30, 2022 Subjective Patient seen and examined, chart, telemetry reviewed. No issues overnight. Appropriate pacing No chest pains or shortness of breath Review of Systems Review of Systems: All systems reviewed & are unremarkable except as noted in Subjective Physical Exam Constitutional: WD/WN, vitals as above no acute distress Eyes: PERRL, conjunctivae normal, anicteric sclerae ENMT: external ear and nose normal, oropharynx normal Neck: trachea midline, no thyromegaly Cardiovascular: Rate/Rhythm: regular rate and regular rhythm Heart Sounds: normal S1 and normal S2; no cardiac rub Vessels: no JVD and no femoral bruit Extremities: no edema Chest (Breasts): Chest: + pacemaker (Right upper chest temporary wire access) Gastrointestinal (Abdomen): normal bowel sounds, soft, nontender, no he patosplenomegaly Musculoskeletal: no cyanosis or clubbing, extremities motor strength 5/5 Results & Data Vital Signs (Past 12 Hours) Vital Signs Temp Pulse Pulse Pulse Resp BP BP 01/02/23 10:15 01/02/23 08:12 36.7 C 87 16 137/84 01/02/23 08:00 81 01/02/23 04:03 36.7 C 70 17 144/79 H Pulse Ox O2 Del Method 01/02/23 10:15 Room Air 01/02/23 08:12 96 Room Air 01/02/23 08:00 01/02/23 04:03 98 Room Air Laboratory Results Laboratory Results - last 24 hr 12/30/22 01/02/23 08:00 06:04 WBC 9.54 RBC 4.35 Hgb 12.7 Hct 38.6 MCV 88.7 MCH 29.2 MCHC 32.9 RDW Std Deviation 44.8 RDW Coeff of Jc 13.7 Plt Count 223 MPV 10.9 Immature Gran % (Auto) 0.2 Neut % (Auto) 63.4 Lymph % (Auto) 23.9 [place] % (Auto) 7.3 Eos % (Auto) 4.8 Baso % (Auto) 0.4 Neut # (Auto) 6.04 Lymph # (Auto) 2.28 [place] # (Auto) 0.70 H Eos # (Auto) 0.46 Baso # (Auto) 0.04 Immature Gran # (Auto) 0.02 Sodium 143 Potassium 3.6 Chloride 106 Carbon Dioxide 30 Anion Gap 7 BUN 11 Creatinine 0.73 Est Cr Clr Drug Dosing 68.7 Est GFR ( Amer) 95.4 Est GFR (Non-Af Amer) 82.3 BUN/Creatinine Ratio 15.1 Glucose 98 Calcium 9.2 Magnesium 2.1 Lyme IgG (Western Blot) NEGATIVE Lyme IgG 18 kDa Band NON-REACTIVE Lyme IgG 23 kDa Band NON-REACTIVE Lyme IgG 28 kDa Band NON-REACTIVE Lyme IgG 30 kDa Band NON-REACTIVE Lyme IgG 39 kDa Band NON-REACTIVE Lyme IgG 41 kDa Band NON-REACTIVE Lyme IgG 45 kDa Band NON-REACTIVE Lyme IgG 58 kDa Band NON-REACTIVE Lyme IgG 66 kDa Band NON-REACTIVE Lyme IgG 93 kDa Band NON-REACTIVE Lyme IgM Ab (WB) NEGATIVE Lyme IgM 23 kDa Band NON-REACTIVE Lyme IgM 39 kDa Band NON-REACTIVE Lyme IgM 41 kDa Band NON-REACTIVE (2) Syncope Syncope type: unspecified Qualified Code(s): R55 - Syncope and collapse (3) COPD with emphysema Emphysema type: unspecified Qualified Code(s): J43.9 - Emphysema, unspecified
[2023-01-02] MEDS ORDERED: BUPIVACAINE 0.25% PF 30 ML VIAL ONE (11:36)
[2023-01-02] MEDS ORDERED: VANCOMYCIN HCL 1000MG/20ML VIAL ONE (11:36)
[2023-01-02] MEDS ORDERED: WATER, STERILE FOR INJ 10 ML VIAL ONE (11:36)
[2023-01-02] MEDS ORDERED: LIDOCAINE 1% LOCAL 20 ML VIAL ONE (11:38)
[2023-01-02] MEDS ORDERED: MIDAZOLAM HCL 1 MG/ML 2ML VIAL ONE ×2 (11:58→16:13)
[2023-01-02] MEDS ORDERED: ceFAZolin 330 MG/ML 1 GM VIAL ONE (14:27)
[2023-01-02] MEDS ORDERED: fentaNYL citrate PF 100 MCG/2 ML VIAL ONE ×2 (15:21→17:04)
[2023-01-02] MEDS ORDERED: MIDAZOLAM HCL 5 MG/ML 1 ML VIAL ONE (15:21)
--- NOTE | 2023-01-02 15:30 | History & Physical Bridge Note ---
Date of Service January 02, 2023 History & Physical Bridge Note I have examined the patient, reviewed the History & Physical and in the interval since the performance of the History & Physical I have noted the following changes of clinical significance: Pt s/p ppm POD 2 but her leads where found to be dislodged and so she is for a lead revision. re-discussed the procedure and potential risks she expressed an understanding-consents signed.
--- NOTE | 2023-01-02 15:31 | Pre Anesthesia Assessment ---
Date of Service January 02, 2023 Pre Sedation Assessment Vital Signs Temp Pulse Pulse Pulse Resp BP BP 01/02/23 12:45 72 18 162/79 H 01/02/23 11:31 36.6 C 70 16 136/63 01/02/23 10:15 01/02/23 08:12 36.7 C 87 16 137/84 01/02/23 08:00 81 01/02/23 04:03 36.7 C 70 17 144/79 H 01/01/23 23:12 36.5 C 76 18 132/81 01/01/23 22:00 82 01/01/23 20:33 01/01/23 19:33 36.8 C 84 18 148/85 H 01/01/23 16:00 01/01/23 16:00 122 H 01/01/23 15:53 36.7 C 101 H 18 152/77 H Pulse Ox O2 Del Method O2 Flow Rate 01/02/23 12:45 96 Room Air 01/02/23 11:31 96 Nasal Cannula 2 01/02/23 10:15 Room Air 01/02/23 08:12 96 Room Air 01/02/23 08:00 01/02/23 04:03 98 Room Air 01/01/23 23:12 98 Room Air 01/01/23 22:00 01/01/23 20:33 Room Air 01/01/23 19:33 92 Room Air 01/01/23 16:00 Room Air 01/01/23 16:00 01/01/23 15:53 94 Room Air Cardiovascular RRR, no murmur, no edema Respiratory normal respiratory effort, lungs clear to auscultation Pre-Sedation Airway Assessment Smoking Status: Unknown if ever smoked Hx Sleep Apnea: No Short, Thick Neck: No Thyromental Distance: > or= 3.5 Finger Breadths Oral Cavity: + Dentures Mallampati Class: II ASA: ASA3 NPO Status Date of Last Intake of Fluids: 01/01/23 Time of Last Intake of Fluids: 22:00 Date of Last Intake of Solid Food: 01/01/23 Time of Last Intake of Solid Foods: 22:00 Procedure Planning Contraindications for Sedation: none Current Medications Reviewed: Yes Notes The planned sedation has been discussed with the patient. Informed Consent was obtained. I have identified the patient, determined the appropriateness of sedation and have assessed the patient immediately prior to the procedure. All medicine(s) and interventions are by my order.
--- NOTE | 2023-01-02 16:40 | Hospitalist Progress Note ---
Date of Service January 02, 2023 Assessment & Plan (1) Symptomatic bradycardia: (2) Syncope: Plan: Patient presented with 2 episode of syncope. Found to have profound bradycardia, asystole and external pacemaker was placed. In the ED, heart alert was called; patient underwent cardiac cath with temporary pacemaker placement Coronary angiogram did not show any acute abnormality. Echocardiogram showed preserved LV systolic function and no significant valvular disease. Status post dual-chamber pacemaker placement on November 30 Repeat evaluation reveals lead migration, Plan for repositioning today by cardiology Lyme IGM: positive Western Blot: negative TSH: normal Continue day #4 Ceftriaxone IV anticipate PO Doxycycline BID to complete 14-day course upon discharge Maalox, Protonix for epigastric pain COPD not in exacerbation continue Trelegy CHD Diastolic Grade 1 euvolemic DVT prophylaxis SCDs for now Please note the above document was generated using voice recognition software. It may contain grammatical, syntax or spelling errors. Any formal questions or concerns about the content, text or information contained within the body of this dictation should be directly addressed to the provider for clarification Admission and Anticipated Discharge Date Admission Date: December 30, 2022 Subjective Patient seen and examined. Comfortably lying in the bed; not in distress. Review of Systems Review of Systems: All systems reviewed & are unremarkable except as noted in Subjective Physical Exam Physical Exam: Constitutional: WD/WN, vitals as above, NAD, sitting up in bed, pleasant, conversing easily Respiratory: normal respiratory effort, lungs clear to auscultation, no wheeze, rales, rhonchi. Normal insp/exp effort, no accessory muscle use Cardiovascular: RRR, no murmur, no edema Vessels: no JVD or carotid bruit Chest: normal inspection of chest Abdomen: normal bowel sounds, soft, nontender, no hepatosplenomegaly Musculoskeletal: no cyanosis or clubbing, extremities motor strength 5/5 Skin: no rashes, warm and dry normal turgor Neurologic: PERRL, EOMI, accommodation nl, no face palsy, no dysarthria CN's II- XI intact bilaterally and moves all extremities Psychiatric: A+Ox3, euthymic affect Results & Data Results & Data Vital Signs (Past 12 Hours) Vital Signs Temp Pulse Pulse Pulse Resp BP Pulse Ox 01/02/23 12:45 72 18 162/79 H 96 01/02/23 11:31 36.6 C 70 16 136/63 96 01/02/23 10:15 01/02/23 08:12 36.7 C 87 16 137/84 96 01/02/23 08:00 81 O2 Del Method O2 Flow Rate 01/02/23 12:45 Room Air 01/02/23 11:31 Nasal Cannula 2 01/02/23 10:15 Room Air 01/02/23 08:12 Room Air 01/02/23 08:00 Laboratory Results Laboratory Results WBC 9.54 K/ul (4.8-10.8) 01/02/23 06:04 RBC 4.35 M/uL (4.20-5.40) 01/02/23 06:04 Hgb 12.7 g/dl (12.0-16.0) 01/02/23 06:04 POC Hgb 13.3 g/dl (12.0-16.0) 12/30/22 07:54 Hct 38.6 % (37.0-47.0) 01/02/23 06:04 POC Hct 39 % (37-47) 12/30/22 07:54 MCV 88.7 fL (80.0-100.0) 01/02/23 06:04 MCH 29.2 pg (25.0-34.0) 01/02/23 06:04 MCHC 32.9 g/dL (32.0-36.0) 01/02/23 06:04 RDW Std Deviation 44.8 fL (36.4-46.3) 01/02/23 06:04 RDW Coeff of Jc 13.7 % (11.5-14.5) 01/02/23 06:04 Plt Count 223 K/uL (130-400) 01/02/23 06:04 MPV 10.9 fL (9.4-12.4) 01/02/23 06:04 Immature Gran % (Auto) 0.2 % 01/02/23 06:04 Neut % (Auto) 63.4 % 01/02/23 06:04 Lymph % (Auto) 23.9 % 01/02/23 06:04 [place] % (Auto) 7.3 % 01/02/23 06:04 Eos % (Auto) 4.8 % 01/02/23 06:04 Baso % (Auto) 0.4 % 01/02/23 06:04 Neut # (Auto) 6.04 K/uL (1.40-6.50) 01/02/23 06:04 Lymph # (Auto) 2.28 K/uL (1.20-3.40) 01/02/23 06:04 [place] # (Auto) 0.70 K/uL (0.11-0.59) H 01/02/23 06:04 Eos # (Auto) 0.46 K/uL (0.00-0.50) 01/02/23 06:04 Baso # (Auto) 0.04 K/uL (0.00-0.20) 01/02/23 06:04 Immature Gran # (Auto) 0.02 K/uL (0.01-0.20) 01/02/23 06:04 PT 11.0 Seconds (9.0-12.0) 12/30/22 08:00 INR 1.0 (0.9-1.1) 12/30/22 08:00 APTT 29.4 Seconds (21.0-31.0) 12/30/22 08:00 PTT Ratio 1.0 12/30/22 08:00 VBG pH 7.33 (7.36-7.41) L 12/30/22 08:00 VBG pCO2 49 mmHg (38-50) 12/30/22 08:00 VBG pO2 65 mmHg 12/30/22 08:00 VBG HCO3 26 mmol/L 12/30/22 08:00 VBG O2 Saturation 92.1 % 12/30/22 08:00 VBG Base Excess -0.7 mEq/L 12/30/22 08:00 POC Sodium 144 mmol/L (135-144) 12/30/22 07:54 Sodium 143 mmol/L (136-145) 01/02/23 06:04 POC Potassium 4.2 mmol/L (3.3-5.0) 12/30/22 07:54 Potassium 3.6 mmol/L (3.5-5.1) 01/02/23 06:04 POC Chloride 107 mmol/L (101-112) 12/30/22 07:54 Chloride 106 mmol/L (98-107) 01/02/23 06:04 Carbon Dioxide 30 mmol/L (21-32) 01/02/23 06:04 POC Total CO2 27 mmol/L (24-31) 12/30/22 07:54 Anion Gap 7 (3-11) 01/02/23 06:04 POC Anion Gap 14.0 mmol/L (16-25) L 12/30/22 07:54 POC BUN 25 mg/dl (7-18) H 12/30/22 07:54 BUN 11 mg/dl (6-23) 01/02/23 06:04 Creatinine 0.73 mg/dl (0.6-1.2) 01/02/23 06:04 POC Creatinine 0.8 mg/dl (0.6-1.3) 12/30/22 07:54 Est Cr Clr Drug Dosing 68.7 ml/min 01/02/23 06:04 Est GFR ( Amer) 95.4 ml/min 01/02/23 06:04 Est GFR (Non-Af Amer) 82.3 ml/min 01/02/23 06:04 BUN/Creatinine Ratio 15.1 (10-20) 01/02/23 06:04 Glucose 98 mg/dl (70-99(Fasting)) 01/02/23 06:04 POC Glucose 93 mg/dl (70-99) 12/31/22 11:47 POC Glucose (other) 127 mg/dl (70-99) H 12/30/22 07:54 Calcium 9.2 mg/dl (8.6-10.3) 01/02/23 06:04 POC Ioniz Calcium [place] 1.22 mmol/l (1.12-1.32) 12/30/22 07:54 Magnesium 2.1 mg/dl (1.7-2.4) 01/02/23 06:04 Total Bilirubin 0.4 mg/dl (0.2-1.0) 12/30/22 08:00 AST 22 U/L (13-39) 12/30/22 08:00 ALT 18 U/L (7-52) 12/30/22 08:00 Alkaline Phosphatase 75 U/L (34-104) 12/30/22 08:00 Troponin I High Sens 4.0 pg/ml (0-14) 12/30/22 08:00 Total Protein 7.1 gm/dl (6.0-8.3) 12/30/22 08:00 Albumin 4.2 gm/dl (3.4-5.0) 12/30/22 08:00 Globulin 2.9 gm/dl (2.5-4.0) 12/30/22 08:00 Albumin/Globulin Ratio 1.4 (0.9-2) 12/30/22 08:00 Lipase 12 U/L (11-82) 12/30/22 08:00 TSH 4.058 uIu/ml (0.300-4.500) 12/30/22 08:00 Nasal Screen MRSA (PCR) Negative (Negative) 12/30/22 10:10 Lyme Disease IgG Ab Negative (Negative) 12/30/22 08:00 Lyme IgG (Western Blot) NEGATIVE (NEGATIVE) 12/30/22 08:00 Lyme IgG 18 kDa Band NON-REACTIVE 12/30/22 08:00 Lyme IgG 23 kDa Band NON-REACTIVE 12/30/22 08:00 Lyme IgG 28 kDa Band NON-REACTIVE 12/30/22 08:00 Lyme IgG 30 kDa Band NON-REACTIVE 12/30/22 08:00 Lyme IgG 39 kDa Band NON-REACTIVE 12/30/22 08:00 Lyme IgG 41 kDa Band NON-REACTIVE 12/30/22 08:00 Lyme IgG 45 kDa Band NON-REACTIVE 12/30/22 08:00 Lyme IgG 58 kDa Band NON-REACTIVE 12/30/22 08:00 Lyme IgG 66 kDa Band NON-REACTIVE 12/30/22 08:00 Lyme IgG 93 kDa Band NON-REACTIVE 12/30/22 08:00 Lyme IgM Ab (WB) NEGATIVE (NEGATIVE) 12/30/22 08:00 Lyme Disease IgM Ab Positive (Negative) A 12/30/22 08:00 Lyme IgM 23 kDa Band NON-REACTIVE 12/30/22 08:00 Lyme IgM 39 kDa Band NON-REACTIVE 12/30/22 08:00 Lyme IgM 41 kDa Band NON-REACTIVE 12/30/22 08:00 SARS-CoV-2, RNA, NAAT NEGATIVE (NEGATIVE) 12/30/22 08:10 Impressions Chest X-Ray 01/01/23 10:20 XR chest 2V PA/lateral HISTORY: S/P Pacemaker check lead position COMPARISON: Chest 12/31/2022. FINDINGS: No pneumothorax. No pleural effusions. No evidence for pulmonary edema. No new focal lung consolidations to suggest a pneumonia. The cardiac silhouette is top normal in size. There are calcifications within the aortic knob. There is left-sided dual-chamber pacemaker again noted. The ventricular lead appears to have been slightly pulled back compared to the original study. IMPRESSION: 1. Left-sided dual-chamber pacemaker again noted. The ventricular lead appears to have been slightly pulled back compared to the prior study. 2. No pneumothorax. ACT 112: Negative or not required by law. Electronically signed by: Myles Nolasco M.D. 01/01/2023 11:45 AM
--- NOTE | 2023-01-02 17:30 | Post Anesthesia Assessment ---
Date of Service January 02, 2023 Post Sedation Assessment Vital Signs Temp Pulse Pulse Pulse Resp BP BP 01/02/23 12:45 72 18 162/79 H 01/02/23 11:31 36.6 C 70 16 136/63 01/02/23 10:15 01/02/23 08:12 36.7 C 87 16 137/84 01/02/23 08:00 81 01/02/23 04:03 36.7 C 70 17 144/79 H 01/01/23 23:12 36.5 C 76 18 132/81 01/01/23 22:00 82 01/01/23 20:33 01/01/23 19:33 36.8 C 84 18 148/85 H Pulse Ox O2 Del Method O2 Flow Rate 01/02/23 12:45 96 Room Air 01/02/23 11:31 96 Nasal Cannula 2 01/02/23 10:15 Room Air 01/02/23 08:12 96 Room Air 01/02/23 08:00 01/02/23 04:03 98 Room Air 01/01/23 23:12 98 Room Air 01/01/23 22:00 01/01/23 20:33 Room Air 01/01/23 19:33 92 Room Air Recovery Score Activity: Moves 4 extremities Respiration: Deep Breath/Cough Circulation: +/-20% PreAnes Value Consciousness: Fully Awake Oxygen Saturation: > 92% On Room Air Post Anesthesia Score: 10 Discharge Sedation Level of Care: Fast Track Phase II Post Sedation Plan On clinical assessment, the patient appears to have tolerated the sedation without complications. Patient is recovering as anticipated. Patient will continue to be monitored by nursing and may be discharged when sedation discharge criteria are met per below protocol. Upon Completions of procedure up to 15 minutes continue every 5 minute vital signs and the P.A.R. score; then discharge to a Phase I or Fast Track to Phase II per the following guidelines: * Discharge Patient to appropriate Phase II area if PAR is 8 or greater or return to pre- procedure baseline. The post - procedure orders will be as directed. * If PAR score is less than 8 or not return to pre-procedure baseline then patient will follow Phase I monitoring till PAR is reached for Phase II. The Phase I may be done in procedure room or may call to secure a Phase I area. * If naloxone or flumazenil are used for reversal, hold in Phase I for continued monitoring from when last reversal dose was given for a minimum of 60 minutes or longer pending the nurse and/or physician discretion of patient condition before discharge to Phase II. Please call the Sedation Physician to re-evaluate and complete post-note for discharge to Phase II area. Do NOT discharge from procedure sedation or Phase 1 until post- sedation evaluation note is complete by procedure /sedation MD Sedation Discharge Instructions to be given to the patient at discharge to home.
[2023-01-02] MEDS: cefTRIAXone SODIUM 2,000 MG in DEXTROSE 5 % MINI-B 50 ML IV SCH (18:19)
[2023-01-02] MEDS: CETIRIZINE HCL 10 MG TABLET PO SCH (20:14)
[2023-01-02] MEDS: LOVASTATIN 20 MG TAB PO SCH (20:14)
[2023-01-02] MEDS: MONTELUKAST SODIUM 10 MG TABLET PO SCH (20:14)
[2023-01-02] MEDS: GABAPENTIN 100 MG CAP PO SCH (20:14)
[2023-01-03 05:02] LABS: Basophils # (auto) 0.02 K/uL (0.00-0.20); Basophils % (auto) 0.2 %; Eosinophils # (auto) 0.31 K/uL (0.00-0.50); Eosinophils % (auto) 3.8 %; Hematocrit (blood only) 34.9 % (37.0-47.0); Hemoglobin 11.4 g/dl (12.0-16.0); Immature Granulocytes # (auto) 0.02 K/uL (0.01-0.20); Immature Granulocytes % (auto) 0.2 %; Lymphocytes # (auto) 1.32 K/uL (1.20-3.40); Lymphocytes % (auto) 16.2 %; Mean Corpuscular Hemoglobin 29.5 pg (25.0-34.0); Mean Corpuscular Hgb Conc 32.7 g/dL (32.0-36.0); Mean Corpuscular Volume 90.4 fL (80.0-100.0); Mean Platelet Volume 10.9 fL (9.4-12.4); Monocytes # (auto) 0.71 K/uL (0.11-0.59); Monocytes % (auto) 8.7 %; Neutrophils # (auto) 5.79 K/uL (1.40-6.50); Neutrophils % (auto) 70.9 %; Platelet Count 192 K/uL (130-400); RDW Coefficient of Variation 13.9 % (11.5-14.5); RDW Standard Deviation 45.6 fL (36.4-46.3); Red Blood Count 3.86 M/uL (4.20-5.40); White Blood Count 8.17 K/ul (4.8-10.8)
[2023-01-03 05:22] LABS: BUN Creatinine Ratio 18.3 (10-20); Calcium 9.1 mg/dl (8.6-10.3); Creatinine Clr Calc Pharmacy 83.7 ml/min; Est GFR (African American) 105.5 ml/min; Est GFR (Non-African American) 91.1 ml/min; Potassium 3.2 mmol/L (3.5-5.1)
--- NOTE | 2023-01-03 07:23 | XRay Report ---
XR chest 1V portable HISTORY: 72 years-old Female s/p ppm ensure no ptx status post placement of a left subclavian pacer COMPARISON: 01/01/2023 TECHNIQUE: AP view of the chest FINDINGS: A dual-lead left subclavian place or is in place. Atherosclerosis of the aorta. No pneumothorax, pleu ral effusion or airspace consolidation. There is mild chronic interstitial coarsening. Degenerative c hanges of the shoulders and spine. IMPRESSION: Dual lead left subclavian place in place. No postprocedural pneumothorax identified. ACT 112: Negative or not required by law. The above report was generated using voice recognition software. It may contain grammatical, syntax o r spelling errors. Electronically signed by: Nam Torrez M.D. 01/03/2023 7:22 AM
[2023-01-03] MEDS: PANTOprazole 40 MG TAB PO SCH (07:52)
[2023-01-03] MEDS: FLUTICASONE FUROATE 200MCG 14 PUFFS/INHALER INH SCH (07:52)
[2023-01-03] MEDS: UMECLIDINIUM/VILANTEROL 62.5/25MCG 7 PUFFS/INHALER INH SCH (07:52)
[2023-01-03] MEDS ORDERED: POTASSIUM CHLORIDE CRTAB 20 MEQ TABCR PO STA (08:45)
--- NOTE | 2023-01-03 11:06 | Cardiology Progress Note ---
Date of Service January 03, 2023 Assessment & Plan (1) Symptomatic bradycardia: (2) Syncope: (3) COPD with emphysema: Plan 72-year-old female with history of past syncopal event possible atrial and ventricular arrhythmias who presented with marked sinus bradycardia, sinus arre st requiring external pacing. Patient underwent coronary angiography without obstructive disease of significance, temporary pacemaker insertion Echocardiogram with preserved LV systolic function and no significant valvular disease No medication contributing Lyme IgM positive but IgG negative. Pattern not consistent with acute Lyme conduction abnormality. We will treat as otherwise in the Impression: Symptomatic bradycardia status post dual-chamber pacemaker insertion 12/31/2022 Device revision on 01/02/2023 Doing well with normal pacemaker function Chest x-ray without pneumothorax Lyme test returning negative Recommendations: Patient stable for discharge today Given chronic hypokalemia with supplement with potassium 10 mg p.o. daily Patient has scheduled follow-up with device clinic on 01/08/2023, Zhane Arroyo No indications for further antibiotics from cardiac standpoint Admission and Anticipated Discharge Date Admission Date: December 30, 2022 Subjective Patient was seen and examined, chart, medications, telemetry reviewed. Feels well this morning other than mild incisional pain No arrhythmias on telemetry with device functioning appropriate Pacemaker interrogation this morning normal function Mild hypokalemia on laboratory test Review of Systems Review of Systems: All systems reviewed & are unremarkable except as noted in Subjective Physical Exam Constitutional: WD/WN, vitals as above no acute distress Eyes: PERRL, conjunctivae normal, anicteric sclerae ENMT: external ear and nose normal, oropharynx normal Neck: trachea midline, no thyromegaly Respiratory: normal respiratory effort, lungs clear to auscultation Cardiovascular: Rate/Rhythm: regular rate and regular rhythm Heart Sounds: normal S1 and normal S2; no cardiac rub Vessels: no JVD and no femoral bruit Extremities: no edema Chest (Breasts): Chest: + pacemaker (Right upper chest temporary wire access) Gastrointestinal (Abdomen): normal bowel sounds, soft, nontender, no hepatosplenomegaly Musculoskeletal: no cyanosis or clubbing, extremities motor strength 5/5 Results & Data Vital Signs (Past 12 Hours) Vital Signs Temp Pulse Pulse Pulse Resp BP BP 01/03/23 08:00 78 01/03/23 07:31 37.0 C 89 18 148/84 H 01/03/23 03:39 36.8 C 81 18 156/85 H 01/03/23 00:00 77 01/02/23 23:57 36.3 C L 85 18 152/83 H Pulse Ox O2 Del Method 01/03/23 08:00 01/03/23 07:31 93 Room Air 01/03/23 03:39 92 Room Air 01/03/23 00:00 01/02/23 23:57 92 Room Air (2) Syncope Syncope type: unspecified Qualified Code(s): R55 - Syncope and collapse (3) COPD with emphysema Emphysema type: unspecified Qualified Code(s): J43.9 - Emphysema, unspecified
--- NOTE | 2023-01-03 13:03 | Electrocardiogram Report ---
Test Reason : Blood Pressure : / mmHG Vent. Rate : 078 BPM Atrial Rate : 078 BPM P-R Int : 168 ms QRS Dur : 088 ms QT Int : 410 ms P-R-T Axes : 032 012 033 degrees QTc Int : 467 ms Normal sinus rhythm Normal ECG When compared with ECG of 31-DEC-2022 12:47, No significant change was found Confirmed by Vincent Pinto ([id number]) on 01/03/2023 1:03:21 PM Referred By: REFERRED SELF Confirmed By:Vincent Pinto
--- NOTE | 2023-01-03 15:36 | Discharge Summary ---
Date of Service January 03, 2023 Admission HPI Per Admitting Provider 72 year old female with history of COPD, Paroxysmal A fib, HTN, Diastolic CHF, etc presenting with syncope. Patient had 2 episodes of syncope this morning. EMS called, found to have profound bradycardia, asystole, and external pacemaker placed. At the ER, heart alert called. Patient underwent cardiac cath and temporary pacemaker placement: Coronary angiography without obstructive disease of significance. Echo: preserved LV systolic function and no significant valvular disease On exam, patient seen resting in bed. Reports burning sensation in the epigastrium/esophagus. no chest pain, dyspnea, palpitations, dizziness Admission Exam Per Admitting Provider General- oriented x 3, not in distress, speaks in sentences with no effort or accessory muscle use Head- atraumatic Eyes- PERRL, EOMI, anicteric ENT- oropharynx clear Neck- supple, no JVD, no adenopathy, no thyromegaly; carotids +2/2, no bruits appreciated Lungs- clear to auscultation bilaterally, no rales/wheezes Heart- normal rate, regular rhythm; no murmur, no gallop, no rub appreciated Abdomen- normal bowel sounds, nondistended, soft, nontender, no masses or hepatosplenomegaly Extremities- no pretibial edema, no calf tenderness; peripheral pulses intact Neuro- alert, oriented x 3; CN 2-12 grossly intact; motor 5/5 bilaterally;sensation 100% on all extremities; no other gross focal neurologic deficits Skin- warm & dry Principal Diagnosis Symptomatic bradycardia Syncope Lyme IgM positive Discharge Exam Constitutional: WD/WN, vitals as above, NAD, sitting up in bed, pleasant, conversing easily Respiratory: normal respiratory effort, lungs clear to auscultation, no wheeze, rales, rhonchi. Normal insp/exp effort, no accessory muscle use Cardiovascular: RRR, no murmur, no edema Vessels: no JVD or carotid bruit Chest: normal inspection of chest Abdomen: normal bowel sounds, soft, nontender, no hepatosplenomegaly Musculoskeletal: no cyanosis or clubbing, extremities motor strength 5/5 Skin: no rashes, warm and dry normal turgor Neurologic: PERRL, EOMI, accommodation nl, no face palsy, no dysarthria CN's II- XI intact bilaterally and moves all extremities Psychiatric: A+Ox3, euthymic affect Discharge Data Allergies Allergy/AdvReac Type Severity Reaction Status Date / Time oxycodone [From OxyContin] Allergy Intermediate Hives Verified 12/31/22 15:53 Consultations 12/30/22 08:07 ED Decision to Admit Stat 12/30/22 09:15 Consult Cardiology Stat 12/30/22 09:40 Consult [employer] Routine Procedures Performed Operation Date: 01/02/23 13:00 Actual Procedures p Lead Reposition RA/RV - Sharon Gonzalez DO s Venogram, Unilateral - Sharon Gonzalez DO s Insertion Single Lead Only - Sharon Gonzalez DO Ordered Studies 12/30/22 08:02 CL Cath Imgs for PACS use only Stat 12/31/22 07:30 EP Lab Images for PACS ONCE 01/02/23 13:00 EP Lab Images for PACS ONCE Hospital Course (1) Symptomatic bradycardia: (2) Syncope: Patient presented with 2 episode of syncope. Found to have profound bradycardia, asystole and external pacemaker was placed. In the ED, heart alert was called; patient underwent cardiac cath with temporary pacemaker placement Coronary angiogram did not show any acute abnormality. Echocardiogram showed preserved LV systolic function and no significant valvular disease. Status post dual-chamber pacemaker placement on November 30 Repeat evaluation reveals lead migration, Repositioning of the lead was done by cardiology again on December 02 Lyme IgM was found to be positive. However, Western blot was negative. Patient was treated with IV ceftriaxone during the hospitalization; switched over to p.o. doxycycline at discharge. Patient to follow-up with [facility] for device check in next few days Patient to follow-up with PCP as well Please note the above document was generated using voice recognition software. It may contain grammatical, syntax or spelling errors. Any formal questions or concerns about the content, text or information contained within the body of this dictation should be directly addressed to the provider for clarification Total Time Total Time Spent Total Time Spent (In Minutes): 45 Total Time Includes: Examination of the Patient, Discharge Planning, Medication Reconciliation, Communication With Other Providers and Other Discharge Plan Discharge Items Patient Disposition: Home - Self-Care Reason For Visit: BRADYCARDIA Discharge Diagnosis: SYMPTOMATIC BRADYCARDIA Activity: As commented below Activity Comment: Do not raise the left elbow over the left shoulder for 1 month Lifting: No more than 10 pounds Lifting Comment: do not lift more than 10 pounds with the left arm for 2 weeks Bathing: Keep incision dry Bathing Comment: keep dressing on & dry until wound check next week Non-emergency contact: Primary Care Provider Call non-emergency contact if: you have any medication questions, your symptoms worsen, your pain is not controlled, your pain is worsening, your pain is unusual for you, your pain is concerning for you and you have a fever Follow-up/Referrals: Rafa Vargas MD [Primary Care Provider] - (Date & Time 01/04/2023 9:00 AM Provider Deanne Jim MD Department [facility] ) Alexsander Parikh MD [Physician] - Sharon Gonzalez DO [Physician] - (Date & Time 01/08/2023 3:00 PM Provider India Osullivan [facility] Department Cardiology, [facility] ) Diet: Heart Healthy Addtl Attending Provider Instructions: You were admitted to the hospital due to syncopal episode. You underwent pacemaker placement on December 31 with revision done on January 02. Please follow-up with cardiology You were prescribed doxycycline 100 mg twice a day to be taken for 11 days to complete the treatment for possible Lyme disease. An appointment is set up with your primary care doctor for sometime next week Device and wound check at [facility] on Monday 01/08 at 3:30pm Pending Studies at Discharge: No Stand-Alone Forms: My [facility] [id number], Smoking Cessation Medications and DC Order Prescriptions: New pantoprazole 40 mg Tablet,Delayed Release (Dr/Ec) 40 mg PO QAM 30 Days Qty: 30 0RF doxycycline hyclate 100 mg tablet,delayed release (DR/EC) 100 mg PO BID 11 Days Qty: 22 0RF Continued ipratropium-albuterol 0.5 mg-3 mg(2.5 mg base)/3 mL solution for nebulization 3 ml inhalation Q8H PRN (Reason: shortness of breath or wheezing) Qty: 180 2RF albuterol sulfate 90 mcg/actuation HFA aerosol inhaler 2 puff INHALATION Q6H PRN (Reason: Wheezing) Qty: 18 2RF lovastatin 40 mg tablet 40 mg PO PM losartan 50 mg Tablet 50 mg PO QAM gabapentin 100 mg Capsule 100 mg PO BID levocetirizine 5 mg tablet 5 mg PO QAM montelukast [Singulair] 10 mg tablet 10 mg PO QAM calcium 600 mg Capsule 600 mg PO QAM cholecalciferol (vitamin D3) [Vitamin D3] 25 mcg (1,000 unit) Tablet,Chewable 25 mcg PO DAILY aspirin 81 mg Capsule 81 mg PO QAM Trelegy Ellipta 200-62.5-25 mcg blister with device 1 ea INHALATION DAILY Discontinued omeprazole 20 mg Capsule,Delayed Release(Dr/Ec) 20 mg PO QAM Discharge Orders: Discharge Order (Routine); Ordered 01/03/23 Ordered By: Gómez Somers/Other Patient Handouts: Doxycycline Oral Capsule, ED Lyme Disease Admission Data Admit Date/Time: 12/30/22 08:21 Attending Provider: Gómez Shaver Admit Provider: Emiliano Proctor Primary Care Provider: Rafa Vargas Other Providers: Emiliano Proctor; Smitha Donald; Attila Spence; Alexsander Parikh; Mulugeta Bolivar; Juan M Evans; Omid Salter; Maribell Franks; Sharon Gonzalez; Smitha Mcdermott; Tanner De Leon; Rikki Reese; Tori Hawthorne; Mariana Lewis; Lucita Holly; Stanislaw Laguna; Antonio Coyle Other Interventions: Discharge Summary Assessment (RN) Last Done: 01/03/23 12:07
[2023-01-04] MEDS ORDERED: POTASSIUM CHLORIDE 10 MEQ TABCR PO SCH (09:00)
--- OUTSIDE RECORDS SUMMARY | 2023-01-04 12:29 | External Medical Summary | Summary of Care ---
Author Name Unknown Organization [facility] Address [address] [place] [address] Phone [phone] Care Team Providers Care Deboning Team Leader Name Role Phone Rafa Vargas MD Primary Care Provider + Encounter Details Date Type Department Care Team (Late st Contact Info) Description 12/06/2022 Telephone Family Practice [facility] [address] [place] [address] Rafa Vargas MD [address] [place] [address] Allergies Active Allergy Reactions Criticality Noted Date Comments Oxycodone 09/17/2019 hives documented as of this encounter (statuses as of 12/18/2022) Medications Medication Sig Dispensed Refills Start Date End Date Status omeprazole (PRILOSEC) 20 MG CPDRIndications:Gastr oesophageal reflux disease, esophagitis presence not specified Take 1 Capsule by mouth in the morning. 1 hour before the first meal of the day. 30 Cap 5 06/02/2018 Active oxygen IN GAS Use 2 L/min(Oxygen) as directed at bedtime. 1 Each 0 10/26/2020 Active Ipratropium-Albuterol 0.5-2.5 (3) MG/3ML Inhalation Solution (Duoneb) Inhale 3 mL via nebulizer in the morning and 3 mL at noon and 3 mL in the evening and 3 mL before bedtime. 1080 mL 1 05/09/2022 Active Additional Information Patient taking differently:3 mL [id number] PRN, Reported on 07/10/2022 Calcium 600+D3 Plus Minerals 600-800 MG-UNIT Oral Tablet Take by mouth daily. 0 Active Gabapentin 100 MG Oral Capsule (Neurontin) TAKE ONE CAPSULE BY MOUTH EVERY DAY AT DINNER AND TWO CAPSULES ONE HOUR BEFORE BEDTIME 270 Capsule 3 08/14/2022 4 Active Montelukast Sodium 10 MG Oral Tablet (Singulair) TAKE ONE TABLET BY MOUTH AT BEDTIME 90 Tablet 2 08/14/2022 4 Active Fluticasone-Umeclidin -Vilant 200-62.5-25 MCG/ACT Aerosol Powder Breath Activated (Trelegy Ellipta) INHALE ONE PUFF BY MOUTH EVERY MORNING 180 Each 1 08/14/2022 4 Active Lovastatin 40 MG Oral Tablet TAKE ONE TABLET BY MOUTH AT BEDTIME 90 Tablet 3 04/26/2022 4 Active Albuterol Sulfate HFA 108 (90 Base) MCG/ACT Inhalation Aerosol Solution INHALE TWO PUFFS BY MOUTH EVERY 4 HOURS NEEDED FOR WHEEZING 54 g 1 03/21/2022 4 Active Levocetirizine Dihydrochloride 5 MG Oral Tablet TAKE ONE TABLET BY MOUTH EVERY EVENING 90 Tablet 2 03/21/2022 4 Active guaiFENesin ER 600 MG Oral Tablet Extended Release 12 Hour (Humibid LA) TAKE TWO TABLETS BY MOUTH EVERY MORNING AND TWO TABLETS BEFORE BEDTIME - TAKE WITH PLENTY OF WATER. DO NOT CUT, CRUSH OR CHEW. 360 Tablet 3 03/20/2022 4 Active Aspirin 81 MG Oral Tablet Delayed Release Take 1 Tablet by mouth in the morning. 0 Active documented as of this encounter (statuses as of 12/18/2022) Active Problems Problem Noted Date Diagnosed Date Heart failure 09/06/2022 Paroxysmal atrial fibrillation 07/10/2022 Overview: 07/17 start eliquis Osteopenia of lumbar spine 03/09/2022 Status post total right knee replacement 022 Nocturnal hypoxemia 11/18/2020 Ground glass opacity present on imaging of lung 08/25/2020 Centrilobular emphysema 08/25/2020 Basal cell carcinoma (BCC) of forehead 9 Status post right hip replacement 12/03/2018 RLS (restless legs syndrome) 06/25/2017 Well adult exam 01/17/2017 Overview: 10/17 NOT taking Xarelto-need discuss Declines Shingrix. 2020 CT chest sched @[facility] 08/16 TTE normal EF Gr I hammonds dys @[facility] 10/13 colon WNL fracisco 5y 10/[address] wNL fracisco 1y Feb 2016- son . 01/11 DR Ga-consider Rx/youth counselor re: of son Deviated nasal septum 06/28/2016 History of tobacco use 04/19/2015 Overview: quit 03/29/15 COPD, group B, by GOLD 2017 classification 01/16 Dyslipidemia HTN, goal below 130/80 Left rotator cuff tear documented as of this encounter (statuses as of 12/18/2022) Resolved Problems Problem Noted Date Diagnosed Date Resolved Date Tobacco use disorder 08/25/2020 021 Exacerbation of intermittent asthma 12/31/2016 12/31/2016 Severe obesity with body mas s index (BMI) of 35.0 to 39.9 with serious comorbidity 12/31/2016 Overview: bmi= 37.98 03/02/16 ICD-10 update of inactive diagnosis Mixed dyslipidemia 11/02/2016 9 Globus hystericus 06/28/2016 10/10/2018 Body mass index 35.0-35.9, adult 04/29/2015 11/02/2016 Overview: bmi= 35.16 04/29/15 Acute costochondritis 04/19/20152016 Obesity, Class I, BMI 30.0-3 4.9 (see actual BMI) 03/23/2014 11/02/2016 Overview: BMI= 34.64 03/23/14 H/O adenomatous polyp of colon 09/10/2012 10/10/2018 Dyslipidemia, goal to be determined 02/03/2009 01/24/2013 Overview: Per Lipid Taxonomy. Benign neoplasm of colon 08/12/200709/2016 Overview: adenomatous/repeat colonoscopy in 3 yrs Mixed dyslipidemia 10/23/2004 9 Overview: Per Lipid Taxonomy. ADVANCE DIRECTIVE INFORMATION 09/07/2004 04/19/2015 Overview: No, Advance Directive brochure given to patient. COUGH CHRONIC 09/07/2004 04/19/2015 Shortness of breath 09/07/2004 04/19/19 16 Painful respiration 09/07/2004 04/19/19 16 Tobacco use disorder 09/07/2004 009 Overview: Resolved per Duplicate Protocol #2. Menopause 09/21/2003 04/19/2015 PLEURISY, VIRAL 03/26/2000 04/19/2015 Tobacco use disorder 03/26/2000 016 CHR DUODENAL ULCER NOS 09/02/199804/19 documented as of this encounter (statuses as of 12/18/2022) Immunizations Name Administration Dates Next Due COVID-19 mRNA, LNP-s, No Pre serve, 2-Dose Series ([email or web address]) 06/06/2021,11/28/2020,04/23/2020,020 07/2020 Covid-19, Mrna, Lnp-s, Pf, B ivalent, 30 Mcg, IM, 12 yrs and above ([email or web address]) 12/18/2021 H1N1 2009 Influenza, IM 02/03/2009 Pneumococcal Conjugate Vacc, 13 Valent (Prevnar) 08/15/2015 Pneumococcal Polysaccharide PPV23 (Pneumovax) 05/31/2017,05/11/2008 SEASONAL INFLUENZA, PF, 6 M & Above, IM , (FLULAVAL or FLUZONE) 12/03/2018,11/19/2016 Season Influenza, Cell Culte r, 18+ Yrs, With Preserv (Flucelvax) 12/26/2017 Seasonal Influenza, Quadriva lent Hd (Fluzone Hd) 11/10/2021,11/18/2020 Seasonal Influenza, Quadriva lent Hd, 65+ Yrs 11/30/2019 Seasonal Influenza, Quadriva lent, No Preserve, IM 11/16/2015 11/15/2016 Seasonal Influenza, Split, I IV3, With Preserve, Inj 11/23/2014,12/07/2013,12/02/2012,12/27 TD - Tetanus/Diptheria (ADULT) 09/21/2003,199309/20/2013 TDAP (age 11 and older)(Adacel) 10/16/2010 10/16/2020 documented as of this encounter Social History Tobacco Use Types Packs/Day Years Used Date Smoking Tobacco: Former Cigarettes 1 49 Q uit: 03/29/2015 Smokeless Tobacco: Never Alcohol Use Standard Drinks/Week Comments Yes 0 (1 standard drink = 0.6 oz pur e alcohol) occ PHQ-2 Answer Date Recorded PHQ Adult Total Score 3 10/04/2021 Hunger Vital Sign Answer Date Recorded Within the past 12 months, y ou worried that your food would run out before you got the money to buy more. Never true 10/05/19 22 Within the past 12 months, t he food you bought just didn't last and you didn't have money to get more. Never true 10/04/2021 Sex and Gender Information Value Date Recorded Sex Assigned at Female 10/04/2021 10:18 AM EDT Gender Identity Female 10/04/2021 10:18 AM EDT Sexual Orientation Straight 10/04/2021 10 :18 AM EDT Job Start Date Occupation Industry Not on file Not on file Not on file documented as of this encounter Miscellaneous Notes * Telephone Encounter - Lory Ngo LPN - 12/18/2022 12:55 PM EDT Called patient to follow up to see if she spoke to [facility]. Called her cell phone which went to . Called husbands phone. Patient answered. Patient stated she talked to [facility]. Nocturnal pulse ox equipment is scheduled to deliver tomorrow (12/19/22). Patient stated she was given instructions and will complete the test tomorrow night. Patient apologized for husbands behavior stating "Kurt is Gene. He gets that way sometimes but he is scared of losing me". I explained to patient that we understand her husbands frustrations. I asked patient again if she felt safe in her home. She stated shedid feel safe. No further questions or concerns at this time. Will plan to follow up with patient in a few days to ensure that o2 testing was completed. * Telephone Encounter - Lory Ngo LPN - 12/18/2022 8:40 AM EDT Called patients cell phone-no answer. Call went straight to voicemail. Called patients . , Kurt answered the phone and started yelling at staff. Gene stated "this has been going on for 3 damn weeks now. This is ridiculous! You people need to get your shit together because she needs this test done". I explained to Gene that the hold up is [facility] not being able to reach the patientto set up the test. Kurt began screaming at me through the phone. I was unable to deescalate Kurt. I stated "Kurt, if you continue to scream at me I will have to disconnect the call". Kurt continued screaming at me and put Niya on the phone. Spoke with Niya. Informed her that the hold up with thenocturnal pulse ox is [facility] not being able to reach her. Niya stated she has been having issues with her phone. While I was on the phone with her I tried calling her cell phone and again, it rang and went straight to voicemail. Niya verbalized understanding of the process with the nocturnal pulse ox. While speaking with Niya, Kurt was screaming in the background and there were noises that appeared to be sounds from him hitting/throwing something. I asked patient if she felt safe at home. Patient stated she did. I asked patient if she felt she was in danger at any time due to husbands temper. Patient stated she did not. Through the phone call patient and yelled at one another regarding oxygen. I asked Niya what she felt would be the best way of [facility] getting a hold of her. Niya stated that calling her husbands phone number was the best since her's does not seem to be working. I explained to Niya that we can certainly call her husbands phone to speak with her, however, we can not tolerate him screaming at us and making threatening statements. Niya verbalized understanding. I gave her the number to call [facility] herself once they open at 10:00am. Graceaverbalized understanding and stated she would reach out to them to speak with someone. I advised Niya that I will personally follow up with her today to ensure that she called [facility]. Niya verbalized understanding and apologized to staff regarding her husbands behavior. * Telephone Encounter - Vanesa Adam LPN - 12/17/2022 3:31 PM EDT Pt calling, they sat at [facility] until 2 pm today. The lady there said they had not received the order, so the pt and left. I again gave the message from Lory, pt stated she will call son. * Telephone Encounter - Rafa Vargas MD - 12/17/2022 3:03 PM EDT Called message. No answer on or Niya's phone. Left messages for them to call back. See notes below, son Kory was informed earlier today. * Telephone Encounter - Vanesa Adam LPN - 12/17/2022 2:32 PM EDT call, very upset that pt still doesn't have pulse ox yet. He would like to speak with Dr Vargas within the next hour. I did inform him of message below, he stated they just left there and the woman didn't know anything about the order. He wants this addressed michelle. He stated "You don't want me coming to the office" he then disconnected call. Called office to make aware, spoke with Hailee. * Telephone Encounter - Lory Ngo LPN - 12/17/2022 10:51 AM EDT Called [facility]. Ensured everything is good to go with the order. Gave them patients son, Kory'umber to call to schedule test as patient and do not answer calls. * Telephone Encounter - Lory Ngo LPN - 12/17/2022 9:32 AM EDT Called and spoke with sonKory. Explained to him that we have been trying to reach Niya. She needs to answer [facility] in order to set up nocturnal pulse ox test. She has not answered [facility] OR our office any time we have tried to call her. , Kurt, is also not answering or returning our calls. Stressed importance of this test to Kory. Patient has to have this done michelle in order tore-qualify for her oxygen. Tami verbalized understanding and stated he would reach out to see what was going on and make sure Niya is answering her phone . * Telephone Encounter - Lory Ngo LPN - 12/17/2022 9:19 AM EDT Called patient and . Left messages on both voicemail's. * Telephone Encounter - Lory Ngo LPN - 12/12/2022 2:51 PM EDT Called [facility] in [place] to check on Nocturnal pulse ox. [facility]. She stated that the order was received and processed on Saturday. Patient will be getting a phone call either later today or tomorrow to schedule delivery of testing equipment. Called patient and to give update. No answer on either phone. Left message on both VM to call office back. Patient is responsive to MyG message so I will follow up with sending her a myg. * Telephone Encounter - Lory Ngo LPN - 12/11/2022 10:37 AM EDT Sent MyG message. * Telephone Encounter - Lory Ngo LPN - 12/11/2022 10:22 AM EDT Called . LMOM. Unable to reach patient. Need to follow up on the nocturnal pulse ox. Info was sent. Did they get a call regarding this from [facility]?? Patient NEEDS to have this done in orderto continue with her oxygen. * Telephone Encounter - Lory Ngo LPN - 12/10/2022 10:21 AM EDT Called patient to follow up. Call went straight to voicemail. LMOM. Will try again later * Telephone Encounter - Lory Ngo LPN - 12/06/2022 12:21 PM EDT Attempted to call patient to update her. Unable to reach her. Called and spoke with patient's to give him an update. Updated on status. Will follow up with [facility] to ensure nocturnal pule ox is done. * Telephone Encounter - Lory Ngo LPN - 12/06/2022 10:39 AM EDT Received certificate of medical necessity via fax from [facility]. Unable to complete form-patient needs an updated nocturnal pulse ox. We ordered and faxed one in September but [facility] was unable to do it for the patient. They stated they reached out to patient in September but never received a response. [facility] did not contact us regarding this. Faxed nocturnal pulse ox order to [facility] for patient. documented in this encounter Plan of Treatment Upcoming Encounters Date Type Department Care Team (Late st Contact Info) Description 12/19/2022 4:20 PM EDT Telemedicine Neurology, [place] [facility] [address] [place] [address] [place] [address] Cayden Lee MD [address], [place] [id number] 12/21/2022 10:30 AM EDT Imaging Radiology [address] [facility] [place] [address] 01/18/2023 10:00 AM EST Office Visit Family Practice [facility] [place] [address] Dinora Zelaya CRNP [address] [facility] [place] [address] Scheduled Procedures Name Priority Associated Diagnoses Date/Ti me COLONOSCOPY FLEXIBLE PROXIMAL DIAGNOSTIC Recall History of colon polyps Health Maintenance Due Date Last Done Comments Alpha-1 Antitrypsin 1968 Zoster Vaccines (1 of 2) 2000 DTaP,Tdap,and Td Vaccines (2 - Td or Tdap) 10/16/2020 10/16/2010, 09/21/2003, 02/25/1993 Depression Screening 10/04/2022 10/04/2021 COVID-19 Vaccine ( - 2022- season) 2022 12/18/2021, 06/06/2021, 06/06/2021, Additional history exists Influenza Vaccine (FLU shot) (#1) 2022 11/10/2021, 11/10/2021, 11/18/2020, Additional history exists GFR 03/02/2023 03/02/2022, 02/2020, 12/05/2019, Additional history exists Mammogram 08/01/2023 07/31/2022, 04/2021, 08/04/2020, Additional history exists COLONOSCOPY-EVERY 5 YRS AGES 18-100 10/10/2023 10/09/2018, 10/09/2018, 06/04/2013, Additional history exists O2 ASSESSMENT COMPLETED IN PAST YEAR FOR COPD 12/01/2023 11/30/2022 Albumin/Creatinine Ratio 03/02/2025 03/02/2022, 02/2020 Lipid Panel 08/14/2027 08/13/2022, 02/2020, 12/05/2019, Additional history exists DXA Scan 10/09/2029 10/09/2022, 08/26, 12/10/2006, Additional history exists Pneumococcal Vaccine: 65+ Years Completed 05/31/2017, 08/15/2015, 05/11/2008 LUNG CANCER SCREENING - USE SMARTSET [id number] Completed 09/19/2022, 04/04/2022, 09/15/2020, Additional history exists GARDASIL-HPV IMMUNIZATION SERIES Aged Out No longer eligible based on patient's age to complete this topic Hepatitis B Aged Out No longer eligi ble based on patient's age to complete this topic MENINGOCOCCAL (MENACTRA/MENVEO) Aged Out No longer eligible based on patient's age to complete this topic documented as of this encounter Medical Devices Not on filedocumented as of this encounter Care Teams Deboning Team Leader Relationship Specialty Start Date End Date Rafa Vargas MD [address] [place] [address] PCP - General Family Medicine 02/28/17 documented as of this encounter
--- OUTSIDE RECORDS SUMMARY | 2023-01-04 12:29 | External Medical Summary | Summary of Care ---
Author Name Unknown Organization [facility] Address [address] [place] [address] Phone [phone] Care Team Providers Care Space Systems Operations Craftsman Name Role Phone Rafa Pires MD Primary Care Provider + Reason for Visit * Reason Comments Medication Refill Encounter Details Date Type Department Care Team (Late st Contact Info) Description 12/24/2022 Refill Family Practice [facility] [place] [address] Rafa Pires MD [address] [place] [address] Allergies Active Allergy Reactions Criticality Noted Date Comments Oxycodone 09/17/2019 hives documented as of this encounter (statuses as of 12/25/2022) Medications Medication Sig Dispensed Refills Start Date End Date Status omeprazole (PRILOSEC) 20 MG CPDRIndications:Lucy roesophageal reflux disease, esophagitis presence not specified Take 1 Capsule by mouth in the morning. 1 hour before the first meal of the day. 30 Cap 5 9 Active oxygen IN GAS Use 2 L/min(Oxygen) as directed at bedtime. 1 Each 0 1 Active Ipratropium-Albutero l 0.5-2.5 (3) MG/3ML Inhalation Solution (Duoneb) Inhale 3 mL via nebulizer in the morning and 3 mL at noon and 3 mL in the evening and 3 mL before bedtime. 1080 mL 1 3 Active Additional Information Patient taking differently:3 mL [id number] PRN, Reported on 07/10/2022 Calcium 600+D3 Plus Minerals 600-800 MG-UNIT Oral Tablet Take by mouth daily. 0 Active Gabapentin 100 MG Oral Capsule (Neurontin) TAKE ONE CAPSULE BY MOUTH EVERY DAY AT DINNER AND TWO CAPSULES ONE HOUR BEFORE BEDTIME 270 Capsule 3 3 08/14/19 24 Active Montelukast Sodium 10 MG Oral Tablet (Singulair) TAKE ONE TABLET BY MOUTH AT BEDTIME 90 Tablet 2 3 08/14/19 24 Active Fluticasone-Umeclidi n-Vilant 200-62.5-25 MCG/ACT Aerosol Powder Breath Activated (Trelegy Ellipta) INHALE ONE PUFF BY MOUTH EVERY MORNING 180 Each 1 3 08/14/19 24 Active Lovastatin 40 MG Oral Tablet TAKE ONE TABLET BY MOUTH AT BEDTIME 90 Tablet 3 3 06/01/19 24 Active guaiFENesin ER 600 MG Oral Tablet Extended Release 12 Hour (Humibid LA) TAKE TWO TABLETS BY MOUTH EVERY MORNING AND TWO TABLETS BEFORE BEDTIME - TAKE WITH PLENTY OF WATER. DO NOT CUT, CRUSH OR CHEW. 360 Tablet 3 3 03/24/19 24 Active Aspirin 81 MG Oral Tablet Delayed Release Take 1 Tablet by mouth in the morning. 0 Active Albuterol Sulfate HFA 108 (90 Base) MCG/ACT Inhalation Aerosol Solution INHALE TWO PUFFS BY MOUTH EVERY 4 HOURS NEEDED FOR WHEEZING 54 g 1 3 12/25/19 24 Active Levocetirizine Dihydrochloride 5 MG Oral Tablet TAKE ONE TABLET BY MOUTH EVERY EVENING 90 Tablet 2 3 12/25/19 24 Active Albuterol Sulfate HFA 108 (90 Base) MCG/ACT Inhalation Aerosol Solution INHALE TWO PUFFS BY MOUTH EVERY 4 HOURS NEEDED FOR WHEEZING 54 g 1 3 12/25/19 23 Discontinu ed(Refill) Levocetirizine Dihydrochloride 5 MG Oral Tablet TAKE ONE TABLET BY MOUTH EVERY EVENING 90 Tablet 2 3 12/25/19 23 Discontinu ed(Refill) documented as of this encounter (statuses as of 12/25/2022) Active Problems Problem Noted Date Diagnosed Date [...] Declines Shingrix. 2020 CT chest sched @[facility] 08/16 TTE normal EF Gr I hammonds dys @[facility] 10/13 colon WNL fracisco 5y 10/[address] wNL fracisco 1y Feb 2016- son . 01/11 DR Ga-consider Rx/auto travel counselor re: of son Deviated nasal septum 06/28/2016 History of tobacco use 04/19/2015 Overview: quit 03/29/15 COPD, group B, by GOLD 2017 classification 01/16 Dyslipidemia HTN, goal below 130/80 Left rotator cuff tear documented as of this encounter (statuses as of 12/25/2022) Resolved Problems Problem Noted Date Diagnosed Date Resolved Date Tobacco use disorder 08/25/2020 021 Exacerbation of intermittent asthma 12/31/2016 12/31/2016 Severe obesity with body mas s index (BMI) of 35.0 to 39.9 with serious comorbidity 12/31/2016 Overview: bmi= 37.98 03/02/16 ICD-10 update of inactive diagnosis Mixed dyslipidemia 11/02/2016 08/16/201 9 Globus hystericus 06/28/2016 10/10/2018 Body mass [...] as of this encounter (statuses as of 12/25/2022) Immunizations Name Administration Dates Next Due COVID-19 mRNA, LNP-s, No Pre serve, 2-Dose Series ([employer]) 06/06/2021,11/28/2020,04/23/2020,0207/2020 Covid-19, Mrna, Lnp-s, Pf, B ivalent, 30 Mcg, IM, 12 yrs and above ([employer]) 12/18/2021 H1N1 2009 Influenza, IM 02/03/2009 Pneumococcal [...] Split, I IV3, With Preserve, Inj 11/23/2014,12/07/2013,12/02/2012,12/27 TDAP (age 11 and older)(Adacel) 10/16/2010 10/16/2020 [...] encounter Miscellaneous Notes * Telephone Encounter - Juan M Dee, [facility] - 12/25/2022 2:42 AM EDTSigned Prescriptions: Disp Refills Albuterol Sulfate HFA 108 (90 Base) MCG/AC*54 g 1 Sig: INHALE TWO PUFFS BY MOUTH EVERY 4 HOURS NEEDED FOR WHEEZINGAuthorizing Provider: RAFA PIRES User: JUAN M DEE Levocetirizine Dihydrochloride 5 MG Oral T*90 Tab*2 Sig: TAKE ONE TABLET BY MOUTH EVERY EVENINGAuthorizing Provider: RAFA PIRES User: JUAN M DEE documented in this encounter Plan of Treatment Upcoming Encounters Date Type Department Care Team (Late st Contact Info) Description 01/18/2023 10:00 AM EST Office Visit [facility] [place] [address] Din[facility] Zel[facility] CR[facility] [address] 07/01/2023 4:20 PM EDT Telemedicine Neurology, [place] [facility] [address] [place] [address] [place] [address] Cayden Lee MD [address], [place] [id number] Scheduled Procedures Name Priority Associated Diagnoses Date/Ti me COLONOSCOPY FLEXIBLE PROXIMAL DIAGNOSTIC Recall History of colon polyps Health Maintenance Due Date Last Done Comments Alpha-1 Antitrypsin 1968 Zoster Vaccines (1 of 2) 2000 DTaP,Tdap,and Td Vaccines (2 - Td or Tdap) 10/16/2020 10/16/2010, 09/21/2003, 02/25/1993 Depression Screening 10/04/2022 10/04/2021 COVID-19 Vaccine ( season) 2022 12/18/2021, 06/06/2021, 06/06/2021, Additional history [...] 05/11/2008 LUNG CANCER SCREENING - USE SMARTSET [id number] Completed 12/21/2022, 09/19/2022, 04/04/2022, Additional history exists GARDASIL-HPV IMMUNIZATION SERIES Aged [...] filedocumented as of this encounter Care Teams Space Systems Operations Craftsman Relationship Specialty Start Date End Date Rafa Pires MD [address] [place] [address] PCP - General Family Medicine 02/28/17 documented as of this encounter
--- OUTSIDE RECORDS SUMMARY | 2023-01-04 12:29 | External Medical Summary | Summary of Care ---
Author Name Unknown Organization [facility] Address [address] [place] [address] Phone [phone] Care Team Providers Care Cad Administrator Name Role Phone Rafa Vargas MD Primary Care Provider + Encounter Details Date Type Department Care Team (Late st Contact Info) Description 12/06/2022 Telephone Family Practice [facility] [address] [place] [address] Rafa Vargas MD [address] [place] [address] Allergies Active Allergy Reactions Criticality Noted Date Comments Oxycodone 09/17/2019 hives documented as of this encounter (statuses as of 12/21/2022) Medications Medication Sig Dispensed Refills Start Date [...] Active Additional Information Patient taking differently:3 mL LtfbhfitkZ6V PRN, Reported on 07/10/2022 Calcium 600+D3 Plus [...] as of this encounter (statuses as of 12/21/2022) Active Problems Problem Noted Date Diagnosed Date [...] discuss Declines Shingrix. 2020 CT chest sched @[facility] 08/16 TTE normal EF Gr I hammonds dys @[facility] 10/13 colon WNL fracisco 5y 10/[address] wNL fracisco 1y Feb 2016- son . 01/11 DR Ga-consider Rx/counseling director re: of son Deviated nasal septum 06/28/2016 History of tobacco use 04/19/2015 Overview: quit 03/29/15 COPD, group B, by GOLD 2017 classification 01/16 Dyslipidemia HTN, goal below 130/80 Left rotator cuff tear documented as of this encounter (statuses as of 12/21/2022) Resolved Problems Problem Noted Date Diagnosed Date [...] as of this encounter (statuses as of 12/21/2022) Immunizations Name Administration Dates Next Due COVID-19 mRNA, LNP-s, No Pre serve, 2-Dose Series ([employer]) 06/06/2021,11/28/2020,04/23/2020,020 07/2020 Covid-19, Mrna, Lnp-s, Pf, B ivalent, 30 Mcg, IM, 12 yrs and above ([employer]) 12/18/2021 H1N1 2009 Influenza, IM 02/03/2009 Pneumococcal [...] Telephone Encounter - Lory Ngo LPN - 12/21/2022 11:24 AM EDT Called and spoke with patient. Patient states the equipment was shipped and she should have it any day now. Patient reports he phone is finally fixed so we can call her cell number. Will check in next week to ensure test is completed by patient. * Telephone Encounter - Lory Ngo LPN [...] was unable to deescalate Kurt. I stated "Gene, if you continue to scream at me [...] PM EDT Pt calling, they sat at [facility] until 2 pm today. The lady there [...] with the order. Gave them patients son, Kory'snumber to call to schedule test as patient and do not answer calls. * Telephone Encounter - Lory Ngo LPN - 12/17/2022 9:32 AM EDT Called and spoke with son, Kory. Explained to him that we have been [...] PM EDT Called [facility] in [place] to check on Nocturnal pulse ox. Spoke with a member of [facility] pulse ox department. She stated that the [...] 01/18/2023 10:00 AM EST Office Visit Family [facility] [address] [facility] [place] [address] Dinora Zelaya CRNP [address] [facility] [address] 07/01/2023 4:20 PM EDT Telemedicine Neurology, [place] Alex[facility] [address] [place] [address] [place] [address] Cayden Lee MD [address] [place] [address] Scheduled Procedures Name Priority Associated Diagnoses Date/Ti [...] 05/11/2008 LUNG CANCER SCREENING - USE SMARTSET [id number] Completed 09/19/2022, 04/04/2022, 09/15/2020, Additional history exists [...] filedocumented as of this encounter Care Teams Cad Administrator Relationship Specialty Start Date End Date Rafa Vargas MD [address] [place] [address] PCP - General Family Medicine 02/28/17 documented as of this encounter
--- OUTSIDE RECORDS SUMMARY | 2023-01-04 12:29 | External Medical Summary | Summary of Care ---
Author Name Unknown Organization [facility] Address [address] [place] [address] Phone [phone] Care Team Providers Care Lieutenant Ballistics Name Role Phone Rafa Vargas MD Primary Care Provider + Encounter Details Date Type Department Care Team (Late st Contact Info) Description 12/06/2022 Telephone Family Practice [facility] [address] [place] [address] Rafa Vargas MD [address] [place] [address] Allergies Active Allergy Reactions Criticality Noted Date Comments Oxycodone 09/17/2019 hives documented as of this encounter (statuses as of 12/28/2022) Medications Medication Sig Dispensed Refills Start Date [...] Active Additional Information Patient taking differently:3 mL JghkptnmfT6S PRN, Reported on 07/10/2022 Calcium 600+D3 Plus [...] MOUTH AT BEDTIME 90 Tablet 3 3 04/26/19 24 Active guaiFENesin ER 600 MG Oral [...] as of this encounter (statuses as of 12/28/2022) Active Problems Problem Noted Date Diagnosed Date [...] Declines Shingrix. 2020 CT chest sched @[facility] 08/16 TTE normal EF Gr I hammonds dys @[facility] 10/13 colon WNL fracisco 5y 10/[address] wNL fracisco 1y Feb 2016- son . 01/11 DR Ga-consider Rx/pet counselor re: of son Deviated nasal septum 06/28/2016 History of tobacco use 04/19/2015 Overview: quit 03/29/15 COPD, group B, by GOLD 2017 classification 01/16 Dyslipidemia HTN, goal below 130/80 Left rotator cuff tear documented as of this encounter (statuses as of 12/28/2022) Resolved Problems Problem Noted Date Diagnosed Date [...] as of this encounter (statuses as of 12/28/2022) Immunizations Name Administration Dates Next Due COVID-19 mRNA, LNP-s, No Pre serve, 2-Dose Series ([employer]) 06/06/2021,11/28/2020,04/23/2020,0207/2020 Covid-19, Mrna, Lnp-s, Pf, B ivalent, 30 Mcg, IM, 12 yrs and above ([employer]) 12/18/2021 H1N1 2009 Influenza, IM 02/03/2009 Pneumococcal [...] Telephone Encounter - Lory Ngo LPN - 12/28/2022 7:36 AM EDT Received results of nocturnal pulse ox test. Once certification form is signed- will fax. * Telephone Encounter - Lory Ngo LPN [...] to see if she spoke to Care [facility]. Called her cell phone which went to . Called husbands phone. Patient answered. Patient stated she talked to Care [facility]. Nocturnal pulse ox equipment is scheduled to [...] cell phone-no answer. Call went straight to [facility]. Called patients . , Kurt answered the phone and started yelling at staff. Gene stated "this has been going on for 3 damn weeks now. This is ridiculous! You people need to get your shit together because she needs this test done". I explained to Gene that the hold up is Care [facility] not being able to reach the patientto [...] them to call back. See notes below, meryl Horn was informed earlier today. * Telephone Encounter [...] go with the order. Gave them patients sonKory'snumber to call to schedule test as patient [...] PM EDT Called [facility] in [place] to check on Nocturnal pulse ox. Spoke with a member of [facility] pulse ox department. She stated that [...] 01/18/2023 10:00 AM EST Office Visit Family [employer] 132 [facility] [place] [address] Dinora Zelaya CRNP [address] [place] [address] 07/01/2023 4:20 PM EDT Telemedicine Neurology, [place] Alexei [address] [place] [address] [place] [address] Cayden Lee MD [address] [place] [address] Scheduled Procedures Name Priority Associated Diagnoses Date/Ti [...] 03/02/2025 03/02/2022, 02/2020 Lipid Panel 08/14/2027 08/13/2022, 0 02/2020, 12/05/2019, Additional history exists DXA Scan 10/09/2029 10/09/2022, 08/26, 12/10/2006, Additional history exists Pneumococcal Vaccine: 65+ Years Completed 05/31/2017, 08/15/2015, 05/11/2008 LUNG CANCER SCREENING - USE SMARTSET 54624 Completed 12/21/2022, 09/19/2022, 04/04/2022, Additional history exists [...] filedocumented as of this encounter Care Teams Lieutenant Ballistics Relationship Specialty Start Date End Date Rafa Vargas MD [address] [place] [address] PCP - General Family Medicine 02/28/17 documented as of this encounter
--- OUTSIDE RECORDS SUMMARY | 2023-01-04 12:29 | External Medical Summary | Summary of Care ---
Author Name Unknown Organization [facility] Address [address] [place] [address] Phone [phone] Care Team Providers Care Redeye Gunner Name Role Phone Rafa Vargas MD Primary Care Provider + Encounter Details Date Type Department Care Team (Late st Contact Info) Description 12/06/[address] [facility] [address] [place] [phone] Rafa Vargas MD [address] [place] [address] Allergies Active Allergy Reactions Criticality Noted Date Comments Oxycodone 09/17/2019 hives documented as of this encounter (statuses as of 12/19/2022) Medications Medication Sig Dispensed Refills Start Date [...] Active Additional Information Patient taking differently:3 mL UgzprcidsG9G PRN, Reported on 07/10/2022 Calcium 600+D3 Plus [...] as of this encounter (statuses as of 12/19/2022) Active Problems Problem Noted Date Diagnosed Date [...] discuss Declines Shingrix. 2020 CT chest sched @[facility] 08/16 TTE normal EF Gr I hammonds dys @[facility] 10/13 colon WNL fracisco 5y 10/[address] wNL fracisco 1y Feb 2016- son . 01/11 DR Ga-consider Rx/res counselor re: of son Deviated nasal septum 06/28/2016 History of tobacco use 04/19/2015 Overview: quit 03/29/15 COPD, group B, by GOLD 2017 classification 01/16 Dyslipidemia HTN, goal below 130/80 Left rotator cuff tear documented as of this encounter (statuses as of 12/19/2022) Resolved Problems Problem Noted Date Diagnosed Date [...] as of this encounter (statuses as of 12/19/2022) Immunizations Name Administration Dates Next Due COVID-19 mRNA, LNP-s, No Pre serve, 2-Dose Series ([employer]) 06/06/2021,11/28/2020,04/23/2020,020 07/2020 Covid-19, Mrna, Lnp-s, Pf, B ivalent, 30 Mcg, IM, 12 yrs and above ([employer]) 12/18/2021 H1N1 2009 Influenza, IM 02/03/2009 Pneumococcal [...] PM EDT Pt calling, they sat at [facility] until 2 pm today. The lady there [...] PM EDT Called [facility] in [place] to check on Nocturnal pulse ox. [facility]. She stated that the [...] Description 12/19/2022 4:20 PM EDT Telemedicine Neurology, [place] Alex[address] [place] [address] [place] [address] Cayden Lee MD [address] [place], [place] [id number] 12/21/2022 10:30 AM EDT Imaging Radiology [address] 132 [facility] [place] [address] 01/18/2023 10:00 AM EST Office Visit Family Practice [facility] 132 [facility] [place] [address] Dinora Zelaya CRNP 132 [facility] [place] [address] Scheduled Procedures Name Priority Associated Diagnoses Date/Ti [...] 05/11/2008 LUNG CANCER SCREENING - USE SMARTSET 31014 Completed 09/19/2022, 04/04/2022, 09/15/2020, Additional history exists [...] filedocumented as of this encounter Care Teams Redeye Gunner Relationship Specialty Start Date End Date Rafa Vargas MD [address] [place] [address] PCP - General Family Medicine 02/28/17 documented as of this encounter
--- OUTSIDE RECORDS SUMMARY | 2023-01-04 12:29 | External Medical Summary | Summary of Care ---
Author Name Unknown Organization [facility] Address [address] [place] [address] Phone [phone] Care Team Providers Care Banking Services Officer Name Role Phone Rafa Vargas MD Primary Care Provider + Encounter Details Date Type Department Care Team (Late st Contact Info) Description 12/18/2022 Telephone Family Practice [facility] [address] [place] [address] Rafa Vargas MD [address] [place] [address] Allergies Active Allergy Reactions Criticality Noted Date Comments Oxycodone 09/17/2019 hives documented as of this encounter (statuses as of 12/20/2022) Medications Medication Sig Dispensed Refills Start Date [...] Active Additional Information Patient taking differently:3 mL YlqhgpiuhP8Q PRN, Reported on 07/10/2022 Calcium 600+D3 Plus [...] as of this encounter (statuses as of 12/20/2022) Active Problems Problem Noted Date Diagnosed Date [...] discuss Declines Shingrix. 2020 CT chest sched @[facility] 08/16 TTE normal EF Gr I hammonds dys @[facility] 10/13 colon WNL fracisco 5y 10/[address] wNL fracisco 1y Feb 2016- son . 01/11 DR Ga-consider Rx/admissions counselor re: of son Deviated nasal septum 06/28/2016 History of tobacco use 04/19/2015 Overview: quit 03/29/15 COPD, group B, by GOLD 2017 classification 01/16 Dyslipidemia HTN, goal below 130/80 Left rotator cuff tear documented as of this encounter (statuses as of 12/20/2022) Resolved Problems Problem Noted Date Diagnosed Date [...] as of this encounter (statuses as of 12/20/2022) Immunizations Name Administration Dates Next Due COVID-19 mRNA, LNP-s, No Pre serve, 2-Dose Series ([employer]) 06/06/2021,11/28/2020,04/23/2020,020 07/2020 Covid-19, Mrna, Lnp-s, Pf, B ivalent, 30 Mcg, IM, 12 yrs and above ([employer]) 12/18/2021 H1N1 2009 Influenza, IM 02/03/2009 Pneumococcal [...] Encounter - Lory Ngo LPN - 12/18/2022 1:26 PM EDT Patient scheduled for Neuro appointment tomorrow. Patient had some confusion regarding your video visit process. Please call patient and explain your video visit process. (You will need to call husbands phone #) documented in this encounter Plan of Treatment Upcoming Encounters Date Type Department Care Team (Late st Contact Info) Description 12/21/2022 10:30 AM EDT Imaging Radiology [facility] [address] [place] [address] 01/18/2023 10:00 AM EST Office Visit Family Practice [facility] [address] [place] [address] Dinora Zelaya CRNP [address] [place] [address] Scheduled Procedures Name Priority Associated Diagnoses Date/Ti [...] 05/11/2008 LUNG CANCER SCREENING - USE SMARTSET [id number] Completed 09/19/2022, 04/04/2022, 09/15/2020, Additional history exists [...] filedocumented as of this encounter Care Teams Banking Services Officer Relationship Specialty Start Date End Date Rafa Vargas MD [address] [place] [address] PCP - General Family Medicine 02/28/17 documented as of this encounter
--- OUTSIDE RECORDS SUMMARY | 2023-01-04 12:29 | External Medical Summary | Summary of Care ---
Author Name Unknown Organization [facility] Address [address] [place] [address] Phone [phone] Care Team Providers Care Manufacturing Technician Name Role Phone Rafa Vargas MD Primary Care Provider + Encounter Details Date Type Department Care Team (Late st Contact Info) Description 12/06/2022 Telephone Family Practice [facility] [address] [place] [address] Rafa Vragas MD [address] [place] [address] Allergies Active Allergy Reactions Criticality Noted Date [...] Active Additional Information Patient taking differently:3 mL MotlqhrzeN3B PRN, Reported on 07/10/2022 Calcium 600+D3 Plus [...] discuss Declines Shingrix. 2020 CT chest sched @[facility] 08/16 TTE normal EF Gr I hammonds dys @[facility] 10/13 colon WNL fracisco 5y 10/[address] wNL fracisco 1y Feb 2016- son . 01/11 DR Ga-consider Rx/alcoholic counselor re: of son Deviated nasal septum [...] mRNA, LNP-s, No Pre serve, 2-Dose Series ([employer]) 06/06/2021,11/28/2020,04/23/2020,0207/2020 Covid-19, Mrna, Lnp-s, Pf, B ivalent, 30 Mcg, IM, 12 yrs and above ([employer]) 12/18/2021 H1N1 2009 Influenza, IM 02/03/2009 Pneumococcal [...] Encounter - Lory Ngo LPN - 12/28/2022 10:46 AM EDT Form and test results faxed to oxygen supplier. * Telephone Encounter - Lory Ngo LPN - 12/28/2022 7:36 AM EDT Received results of nocturnal pulse ox test. Once certification form is signed- will fax. * Telephone Encounter - Lory gNo LPN - 12/21/2022 11:24 AM EDT Called [...] to see if she spoke to Care [facility]. Called her cell phone which went to . Called husbands phone. Patient answered. Patient stated she talked to [facility]. Nocturnal pulse ox equipment is scheduled to [...] cell phone-no answer. [facility] . , Gene answered the phone and started yelling at staff. Gene stated "this has been going on for 3 damn weeks now. This is ridiculous! You people need to get your shit together because she needs this test done". I explained to Kurt that the hold up is [facility] [...] EDT Pt calling, they sat at [facility] until 2 pm today. The lady [...] 9:32 AM EDT Called and spoke with Kory sheth. Explained to him that we have been [...] PM EDT Called [facility] in [place] to check on Nocturnal pulse ox. Spoke with a member of [facility] pulse ox department. She stated that the [...] to follow up. Call went straight to voicecail. LMOM. Will try again later * Telephone [...] 01/18/2023 10:00 AM EST Office [facility] [place] [address] Dinora Zelaya CRNP [address] [place] [address] 07/01/2023 4:20 PM EDT Telemedicine Neurology, [place] Alexei West [address] [place] [address] [place] [address] Cayden Lee MD [address] [place] [address] Scheduled Procedures Name Priority Associated [...] Additional history exists DXA Scan 10/09/2029 10/09/2022, 07/, 12/10/2006, Additional history exists Pneumococcal Vaccine: 65+ Years Completed 05/31/2017, 08/15/2015, 05/11/2008 LUNG CANCER SCREENING - USE SMARTSET 45321 Completed 12/21/2022, 09/19/2022, 04/04/2022, Additional history exists [...] filedocumented as of this encounter Care Teams Manufacturing Technician Relationship Specialty Start Date End Date Rafa Vargas MD [address] [place] [address] PCP - General Family Medicine 02/28/17 documented as of this encounter
--- OUTSIDE RECORDS SUMMARY | 2023-01-04 12:29 | External Medical Summary | Summary of Care ---
Author Name Unknown Organization [facility] Address [address] [place] [address] Phone [phone] Care Team Providers Care Sed High School Teacher Name Role Phone Rafa Vargas MD Primary Care Provider + Encounter Details Date Type Department Care Team (Late st Contact Info) Description 12/06/2022 Telephone Family Practice [facility] [address] [place] [address] Rafa Vargas MD [address] [place] [address] Allergies Active Allergy Reactions Criticality Noted Date [...] Active Additional Information Patient taking differently:3 mL AhiozjgjwJ7M PRN, Reported on 07/10/2022 Calcium 600+D3 Plus [...] discuss Declines Shingrix. 2020 CT chest sched @[facility] 08/16 TTE normal EF Gr I hammonds dys @[facility] 10/13 colon WNL fracisco 5y 10/[address] wNL fracisco 1y Feb 2016- son . 01/11 DR Ga-consider Rx/career guidance counselor re: of son Deviated nasal septum [...] mRNA, LNP-s, No Pre serve, 2-Dose Series ([employer]) 06/06/2021,11/28/2020,04/23/2020,0207/2020 Covid-19, Mrna, Lnp-s, Pf, B ivalent, 30 Mcg, IM, 12 yrs and above ([employer]) 12/18/2021 H1N1 2009 Influenza, IM 02/03/2009 Pneumococcal [...] PM EDT Pt calling, they sat at [facility] until 2 pm today. The lady there said they had not received the order, so the pt and left. I again gave the message from saji Henley stated she will call son. * Telephone [...] PM EDT Called [facility] in [place] to check on Nocturnal pulse ox. Spoke with a member of [facility] pulse ox department. She stated [...] on status. Will follow up with care [facility] to ensure nocturnal pule ox is done. [...] 10:00 AM EST Office Visit Family Practice [facility] 132 [facility] [place] [address] Dinora Zelaya CRNP [address] [place] [address] 07/01/2023 4:20 PM EDT Telemedicine Neurology, [place] Alexei West [address] [place] [address] [place] [address] Cayden Lee MD [address] [facility] [address] Scheduled Procedures Name Priority Associated Diagnoses [...] 05/11/2008 LUNG CANCER SCREENING - USE SMARTSET [id number] Completed 12/21/2022, 09/19/2022, 04/04/2022, Additional history exists [...] filedocumented as of this encounter Care Teams Sed High School Teacher Relationship Specialty Start Date End Date Rafa Vargas MD [address] [place] [address] PCP - General Family Medicine 02/28/17 documented as of this encounter
--- OUTSIDE RECORDS SUMMARY | 2023-01-04 12:29 | External Medical Summary | Summary of Care ---
Author Name Unknown Organization [facility] Address [address] [place] [address] Phone [phone] Care Team Providers Care Nuclear Equipment Operator Name Role Phone Rafa Vargas MD Primary Care Provider + Reason for Visit * Evaluate & Treat - Unlimited Visits (Within 10 days (routine)) - Authorized Specialty Diagnoses / Procedures Referred By Contblake t Referred To Contact Neurology Diagnoses Memory changes Dannielle Strickland PA-C [address] [facility] [place] [address] Referral ID Status Reason Start Date Expiration Date Visits Requested Visits Authorized [id number] Authorized Specialty Services Required 11/30/2022 [id number] Encounter Details Date Type Department Care Team (Late st Contact Info) Description 12/19/2022 4:20 PM EDT Telemedicine Neurology, [place] Alexei West [address] [place] [address] [place] [address] Cayden Rothman MD [address] [place] [address] Memory loss* Allergies Active Allergy Reactions Criticality Noted Date [...] Active Additional Information Patient taking differently:3 mL [id number] PRN, Reported on 07/10/2022 Calcium 600+D3 Plus [...] Feb 2016- son . 01/11 DR Ga-consider Rx/rehabilitation counsellor re: of son Deviated nasal septum 06/28/2016 [...] mRNA, LNP-s, No Pre serve, 2-Dose Series ([employer]) 06/06/2021,11/28/2020,04/23/2020,0207/2020 Covid-19, Mrna, Lnp-s, Pf, B ivalent, [...] on file documented as of this encounter Progress Notes * Cayden Rothman MD - 12/19/2022 8:21 PM EDT Patient location: HOME. I was in a hospital or clinic location. After connecting through [employer],patient was verified with two unique identifiers. Patient (or authorized legal sales representative facility services) was then informed that this was a Telemedicine visit and being conducted confidentially over secure lines. Methods to assure confidentiality were taken. Patient acknowledged consent and understanding of pr ivacy and security of the Telemedicine visit. The patient agreed to participate. SUBJECTIVE: Niya Escudero is a 72 year old female. No chief complaint on file. HPI: She is seen for evaluation of memory loss. She was unaccompanied on the video. She currently lives with her in [place]. She has a GED level of education then did attend [employer]. 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 She says she is not real worried about her memory and it is more her 's concern that is why she wants to be evaluated. She says she is "fine really". She does say that she may have trouble remembering exact dates when something happened for example. She denies any incidents that have occurred related to the memory. She denies that she has had to drop any activities specifically related to the memory. She denies any problems teaching at the cosmetology school. She does not think anyone else is concerned besides her . She thinks this may have started when she was admitted to [facility] on 05/23/[facility]. She had a syncopal episode. She says she did not hit her head and says that bystanders held her up. She says she did not think she had a CT scan done at that time. She has not had any formal cognitive evaluations previously, she did have an MMSE done at last PCPvisit which is documented at . She denies any problems in managing her medications. She denies any problems driving. She denies any episodes of getting lost though there was one episode of missing an exit. She denies any accidents. She denies any significant problems with managing her finances. She reports she forgot to put a check in the envelope one time when paying a bill. She realized this later. She has not forgotten to pay any bills. She denies any problems with her cooking. She denies any problems with using tech devices. She quit smoking in 2016. She denies any alcohol or drugs. She denies any significant family history of cognitive disorders though she reports most of her family young. When asked about her mood she says she is the "happiest person I know". Patient Active Problem List Diagnosis Code COPD, group B, by GOLD 2017 classification ([facility]) J44.9 Dyslipidemia E78.5 History of tobacco use Z87.891 Deviated nasal septum J34.2 HTN, goal below 130/80 I10 Well adult exam Z00.00 RLS (restless legs syndrome) G25.81 Left rotator cuff tear M75.102 Status post right hip replacement Z96.641 Basal cell carcinoma (BCC) of forehead C44.319 Ground glass opacity present on imaging of lung R91.8 Centrilobular emphysema ([facility]) J43.2 Nocturnal hypoxemia G47.34 Status post total right knee replacement Z96.651 Osteopenia of lumbar spine M85.88 Paroxysmal atrial fibrillation ([facility]) I48.0 Heart failure ([facility]) I50.9 Current Outpatient Medications Medication Sig Dispense Refill omeprazole (PRILOSEC) 20 MG CPDR Take 1 Capsule by mouth in the morning. 1 hour before the first meal of the day. 30 Cap 5 oxygen IN GAS Use 2 L/min(Oxygen) as directed at bedtime. 1 Each 0 Ipratropium-Albuterol 0.5-2.5 (3) MG/3ML Inhalation Solution (Duoneb) Inhale 3 mL via nebulizer in the morning and 3 mL at noon and 3 mL in the evening and 3 mL before bedtime. (Patient taking differently: Inhale 3 mL via nebulizer every 6 hours as needed.) 1080 mL 1 Calcium 600+D3 Plus Minerals 600-800 MG-UNIT Oral Tablet Take by mouth daily. Gabapentin 100 MG Oral Capsule (Neurontin) TAKE ONE CAPSULE BY MOUTH EVERY DAY AT DINNER AND TWO CAPSULES ONE HOUR BEFORE BEDTIME 270 Capsule 3 Montelukast Sodium 10 MG Oral Tablet (Singulair) TAKE ONE TABLET BY MOUTH AT BEDTIME 90 Tablet 2 Ubbdbgnflry-Cjlhimgaa-Uokbpb 200-62.5-25 MCG/ACT Aerosol Powder Breath Activated (Trelegy Ellipta) INHALE ONE PUFF BY MOUTH EVERY MORNING 180 Each 1 Lovastatin 40 MG Oral Tablet TAKE ONE TABLET BY MOUTH AT BEDTIME 90 Tablet 3 Albuterol Sulfate HFA 108 (90 Base) MCG/ACT Inhalation Aerosol Solution INHALE TWO PUFFS BY MOUTH EVERY 4 HOURS NEEDED FOR WHEEZING 54 g 1 Levocetirizine Dihydrochloride 5 MG Oral Tablet TAKE ONE TABLET BY MOUTH EVERY EVENING 90 Tablet 2 guaiFENesin ER 600 MG Oral Tablet Extended Release 12 Hour (Humibid LA) TAKE TWO TABLETS BY MOUTH EVERY MORNING AND TWO TABLETS BEFORE BEDTIME - TAKE WITH PLENTY OF WATER. DO NOT CUT, CRUSH OR CHEW. 360 Tablet 3 Aspirin 81 MG Oral Tablet Delayed Release Take 1 Tablet by mouth in the morning. No current facility-administered medications for this visit. Review of patient's allergies indicates: Allergen Reactions Oxycodone hives OBJECTIVE: LMP 05/20/1999 PHYSICAL EXAM: General: alert, healthy, and no distress Neuro-speech- clear and fluent Brief Cognitive evaluation 5/5 orientation to time 5/[address] 3/3 immediate recall 2/5 serial sevens 5/5 world backwards 2/3 delayed recall 2/2 identification 0/1 repetition 2/2 digits She was able to name the president She named 12 words that start with F in one minute ASSESSMENT: R41.3 Memory loss (primary encounter diagnosis) 72 year old female with probable subjective memory complaints. She is probably on the cusp of Mild Cognitive Impairment but likely is still probably in the normal aging/subjective memory complaints range. She did do better today on some of the cognitive tasks than on MMSE better on world backwards and 1 better on delayed recall. She does not have functional impact from her cognitive symptoms. PLAN: I discussed with her further evaluation for cognitive symptoms She has had some labs though no B12 or TSh so reasonable to obtain these things We discussed imaging and she declines for now Will continue to monitor Follow up in 6 month(s). Cayden Rothman MD Video was from 4:21-5:03 with documentation from 8:42-9:07 I spent a total of Greater than 55 mins (exact time 66 mins) on the date of service in preparation,delivery, and documentation of the care provided to Niya Escudero excluding any time spent in the performance of separately billed services. documented in this encounter Plan of Treatment Upcoming Encounters Date Type Department Care Team (Late st Contact Info) Description 12/21/2022 10:30 AM EDT Imaging Radiology [address] [place] [address] 01/18/2023 10:00 AM EST Office Visit [facility] [place] [address] Dinora Zelaya CRNP [address] [place] [address] Scheduled Orders Name Type Priority Associated Diagnoses Orde r Schedule TSH WITH FREE T4 IF INDICATED Lab Routine Memory loss Ordered: 12/19/2022 VITAMIN B12 Lab Routine Memory loss Ordered: 12/19/2022 Scheduled Procedures Name Priority Associated Diagnoses Date/Ti [...] 05/11/2008 LUNG CANCER SCREENING - USE SMARTSET [id number] Completed 09/19/2022, 04/04/2022, 09/15/2020, Additional history exists [...] Not on filedocumented as of this encounter Visit Diagnoses Diagnosis Memory loss- Primary documented in this encounter Care Teams Nuclear Equipment Operator Relationship Specialty Start Date End Date Rafa Vargas MD [address] [place] [address] PCP - General Family Medicine 02/28/17 documented as of this encounter
--- OUTSIDE RECORDS SUMMARY | 2023-01-04 12:30 | External Medical Summary | Summary of Care ---
Author Name Unknown Organization [facility] Address [address] [place] [address] Phone [phone] Care Team Providers Care Material Stress Tester Name Role Phone Rafa Vargas MD Primary Care Provider + Encounter Details Date Type Department Care Team (Late st Contact Info) Description 12/06/2022 Telephone Family Practice [facility] [address] [place] [address] Rafa Vargas MD [address] [place] [address] Allergies Active Allergy Reactions Criticality Noted Date Comments Oxycodone 09/17/2019 hives documented as of this encounter (statuses as of 12/17/2022) Medications Medication Sig Dispensed Refills Start Date [...] Active Additional Information Patient taking differently:3 mL [id number] PRN, Reported on 07/10/2022 Calcium 600+D3 Plus [...] as of this encounter (statuses as of 12/17/2022) Active Problems Problem Noted Date Diagnosed Date [...] Declines Shingrix. 2020 CT chest sched @[facility] 08/16 TTE normal EF Gr I hammonds dys @[facility] 10/13 colon WNL fracisco 5y 10/[address] wNL fracisco 1y Feb 2016- son . 01/11 DR Ga-consider Rx/counselor camp re: of son Deviated nasal septum 06/28/2016 History of tobacco use 04/19/2015 Overview: quit 03/29/15 COPD, group B, by GOLD 2017 classification 01/16 Dyslipidemia HTN, goal below 130/80 Left rotator cuff tear documented as of this encounter (statuses as of 12/17/2022) Resolved Problems Problem Noted Date Diagnosed Date [...] as of this encounter (statuses as of 12/17/2022) Immunizations Name Administration Dates Next Due COVID-19 mRNA, LNP-s, No Pre serve, 2-Dose Series ([employer]) 06/06/2021,11/28/2020,04/23/2020,020 07/2020 Covid-19, Mrna, Lnp-s, Pf, B ivalent, 30 Mcg, IM, 12 yrs and above ([employer]) 12/18/2021 H1N1 2009 Influenza, IM 02/03/2009 Pneumococcal [...] encounter Miscellaneous Notes * Telephone Encounter - Vanesa Adam LPN - 12/17/2022 2:32 PM EDT felipe bustamante * Telephone Encounter - Lory Ngo LPN [...] PM EDT Called [facility] in [place] to check on Nocturnal pulse ox. Spoke with a member of [facility] pulse ox department. She stated that [...] Description 12/19/2022 4:20 PM EDT Telemedicine Neurology, [place] Alexei West [address] [place] [address] [place] [address] Cayden Lee MD [address] [place] [address] 12/21/2022 10:30 AM EDT Imaging Radiology [address] [place] [address] 01/18/2023 10:00 AM EST Office Visit Family Practice [facility] [address] [facility] [place] [address] Dinora Zelaya CRNP [address] [place] [address] Scheduled Procedures Name Priority Associated Diagnoses Date/Ti me COLONOSCOPY FLEXIBLE PROXIMAL DIAGNOSTIC Recall History of colon polyps Health Maintenance Due Date Last Done Comments Alpha-1 Antitrypsin 1968 Zoster Vaccines (1 of 2) 2000 DTaP,Tdap,and Td Vaccines (2 - Td or Tdap) 10/16/2020 10/16/2010, 09/21/2003, 02/25/1993 Depression Screening 10/04/2022 10/04/2021 COVID-19 Vaccine ( - season) 2022 12/18/2021, 06/06/2021, 06/06/2021, Additional history [...] 05/11/2008 LUNG CANCER SCREENING - USE SMARTSET [id number] Completed 09/19/2022, 04/04/2022, 09/15/2020, Additional history exists [...] filedocumented as of this encounter Care Teams Material Stress Tester Relationship Specialty Start Date End Date Rafa Vargas MD [address] [place] [address] PCP - General Family Medicine 02/28/17 documented as of this encounter
--- OUTSIDE RECORDS SUMMARY | 2023-01-04 12:30 | External Medical Summary | Summary of Care ---
Author Name Unknown Organization [facility] Address [address] [place] [address] Phone [phone] Care Team Providers Care Arborer Name Role Phone Rafa Vargas MD Primary Care Provider + Encounter Details Date Type Department Care Team (Late st Contact Info) Description 12/06/2022 Telephone Family Practice [facility] [address] [place] [address] Rafa Vargas MD [address] [place] [address] Allergies Active Allergy Reactions Criticality Noted Date [...] Active Additional Information Patient taking differently:3 mL [id number] PRN, Reported on 07/10/2022 Calcium 600+D3 Plus [...] Declines Shingrix. 2020 CT chest sched @[facility] 08/16 TTE normal EF Gr I hammonds dys @[facility] 10/13 colon WNL fracisco 5y 10/[address] wNL fracisco 1y Feb 2016- son . 01/11 DR Ga-consider Rx/estate planning counselor re: of son Deviated nasal septum [...] mRNA, LNP-s, No Pre serve, 2-Dose Series ([employer]) 06/06/2021,11/28/2020,04/23/2020,020 07/2020 Covid-19, Mrna, Lnp-s, Pf, B ivalent, 30 Mcg, IM, 12 yrs and above ([employer]) 12/18/2021 H1N1 2009 Influenza, IM 02/03/2009 Pneumococcal [...] PM EDT Pt calling, they sat at [facility] until 2 pm today. The lady [...] PM EDT Called [facility] in [place] to check on Nocturnal pulse ox. Spoke with a member of [facility] pulse ox department. She stated [...] Description 12/19/2022 4:20 PM EDT Telemedicine Neurology, [place] Alexei West [address] [place] [address] [place] [address] Cayden Lee MD [address] [facility] [place] [id number] 12/21/2022 10:30 AM EDT Imaging Radiology [address] [place] [address] 01/18/2023 10:00 AM EST Office Visit Family [facility] [address] [place] [address] Dinora Zelaya CRNP [address] [place] [address] Scheduled Procedures Name Priority Associated Diagnoses Date/Ti [...] Additional history exists DXA Scan 10/09/2029 10/09/2022, /, 12/10/2006, Additional history exists Pneumococcal Vaccine: 65+ Years Completed 05/31/2017, 08/15/2015, 05/11/2008 LUNG CANCER SCREENING - USE SMARTSET [id number] Completed 09/19/2022, 04/04/2022, 09/15/2020, Additional history exists [...] filedocumented as of this encounter Care Teams Arborer Relationship Specialty Start Date End Date Rafa Vargas MD [address] [place] [address] PCP - General Family Medicine 02/28/17 documented as of this encounter
--- OUTSIDE RECORDS SUMMARY | 2023-01-04 12:30 | External Medical Summary | Summary of Care ---
Author Name Unknown Organization [facility] Address [address] [place] [address] Phone [phone] Care Team Providers Care Computer Aided Design Operator Name Role Phone Rafa Vargas MD Primary Care Provider + Encounter Details Date Type Department Care Team (Late st Contact Info) Description 12/06/2022 Telephone Family Practice [facility] [address] [place] [address] Rafa Vargas MD [address] [place] [address] Allergies Active Allergy Reactions Criticality Noted Date [...] Active Additional Information Patient taking differently:3 mL [id number] PRN, Reported on 07/10/2022 Calcium 600+D3 Plus [...] discuss Declines Shingrix. 2020 CT chest sched @[facility] 08/16 TTE normal EF Gr I hammonds dys @[facility] 10/13 colon WNL fracisco 5y 10/[address] wNL fracisco 1y Feb 2016- son . 01/11 DR Ga-consider Rx/children counselor re: of son Deviated nasal septum [...] mRNA, LNP-s, No Pre serve, 2-Dose Series ([employer]) 06/06/2021,11/28/2020,04/23/2020,020 07/2020 Covid-19, Mrna, Lnp-s, Pf, B ivalent, 30 Mcg, IM, 12 yrs and above ([employer]) 12/18/2021 H1N1 2009 Influenza, IM 02/03/2009 Pneumococcal [...] PM EDT Pt calling, they sat at [facility] until 2 pm today. The lady [...] PM EDT Called [facility] in [place] to check on Nocturnal pulse ox. Spoke with a member of [facility] pulse ox department. She stated that [...] Description 12/19/2022 4:20 PM EDT Telemedicine Neurology, [place] Alexei West [address] [place] [address] [place] [address] Cayden Lee MD [address] [facility] [place] [id number] 12/21/2022 10:30 AM EDT Imaging Radiology [address] [place] [address] 01/18/2023 10:00 AM EST Office Visit Family [facility] [address] [place] [address] Dinora Zelaya CRNP [address] [place] [address] Scheduled Procedures Name Priority Associated Diagnoses Date/Ti [...] 05/11/2008 LUNG CANCER SCREENING - USE SMARTSET [id number] Completed 09/19/2022, 04/04/2022, 09/15/2020, Additional history exists [...] filedocumented as of this encounter Care Teams Computer Aided Design Operator Relationship Specialty Start Date End Date Rafa Vargas MD [address] [place] [address] PCP - General Family Medicine 02/28/17 documented as of this encounter
--- OUTSIDE RECORDS SUMMARY | 2023-01-04 12:30 | External Medical Summary | Summary of Care ---
Author Name Unknown Organization [facility] Address [address] [place] [address] Phone [phone] Care Team Providers Care Manager It Security Name Role Phone Rafa Vargas MD Primary Care Provider + Encounter Details Date Type Department Care Team (Late st Contact Info) Description 12/06/2022 Telephone Family Practice [facility] [address] [place] [address] Rafa Vargas MD [address] [place] [address] Allergies Active Allergy Reactions Criticality Noted Date [...] Active Additional Information Patient taking differently:3 mL TngnhypelH8N PRN, Reported on 07/10/2022 Calcium 600+D3 Plus [...] Declines Shingrix. 2020 CT chest sched @[facility] 08/16 TTE normal EF Gr I hammonds dys @[facility] 10/13 colon WNL fracisco 5y 10/[address] wNL fracisco 1y Feb 2016- son . 01/11 DR Ga-consider Rx/career development counselor re: of son Deviated nasal septum [...] mRNA, LNP-s, No Pre serve, 2-Dose Series ([employer]) 06/06/2021,11/28/2020,04/23/2020,020 07/2020 Covid-19, Mrna, Lnp-s, Pf, B ivalent, 30 Mcg, IM, 12 yrs and above ([employer]) 12/18/2021 H1N1 2009 Influenza, IM 02/03/2009 Pneumococcal [...] PM EDT Pt calling, they sat at [facility] until 2 pm today. The lady [...] PM EDT Called [facility] in [place] to check on Nocturnal pulse ox. Spoke with a member of [facility] pulse ox department. She stated that [...] to follow up. Call went straight to voicemsil. LMOM. Will try again later * Telephone [...] Description 12/19/2022 4:20 PM EDT Telemedicine Neurology, [place] Alexei West [address] [place] [address] [place] [address] Cayden Lee MD [address] [place] [address] 12/21/2022 10:30 AM EDT Imaging Radiology [facility] [address] [place] [address] 01/18/2023 10:00 AM EST Office Visit Family Practice [address] [place] [address] Dinora Zelaya CRNP [address] [place] [address] Scheduled Procedures Name Priority Associated Diagnoses Date/Ti [...] 05/11/2008 LUNG CANCER SCREENING - USE SMARTSET [id number] Completed 09/19/2022, 04/04/2022, 09/15/2020, Additional history exists [...] filedocumented as of this encounter Care Teams Manager It Security Relationship Specialty Start Date End Date Rafa Vargas MD [address] [place] [address] PCP - General Family Medicine 02/28/17 documented as of this encounter
--- OUTSIDE RECORDS SUMMARY | 2023-01-04 12:30 | External Medical Summary | Summary of Care ---
Author Name Unknown Organization [facility] Address [address] [place] [address] Phone [phone] Care Team Providers Care Caramel Candy Maker Name Role Phone Rafa Vargas MD Primary Care Provider + Encounter Details Date Type Department Care Team (Late st Contact Info) Description 12/06/2022 Telephone Family Practice [facility] [address] [place] [address] Rafa Vargas MD [address] [place] [address] Allergies Active Allergy Reactions Criticality Noted Date [...] Active Additional Information Patient taking differently:3 mL [id number] PRN, Reported on 07/10/2022 Calcium 600+D3 Plus [...] discuss Declines Shingrix. 2020 CT chest sched @[facility] 08/16 TTE normal EF Gr I hammonds dys @[facility] 10/13 colon WNL fracisco [...] mRNA, LNP-s, No Pre serve, 2-Dose Series ([employer]) 06/06/2021,11/28/2020,04/23/2020,020 07/2020 Covid-19, Mrna, Lnp-s, Pf, B ivalent, 30 Mcg, IM, 12 yrs and above ([employer]) 12/18/2021 H1N1 2009 Influenza, IM 02/03/2009 Pneumococcal [...] encounter Miscellaneous Notes * Telephone Encounter - Rafa Vargas MD [...] PM EDT Called [facility] in [place] to check on Nocturnal pulse ox. Spoke with a member of [facility] pulse ox department. She stated that [...] Description 12/19/2022 4:20 PM EDT Telemedicine Neurology, [place] Alexei West [address] [place] [address] [place] [address] Cayden Lee MD [address] [place] [address] 12/21/2022 10:30 AM EDT Imaging Radiology [address] [place] [address] 01/18/2023 10:00 AM EST Office Visit Family Practice [facility] [address] [place] [address] Dinora Zelaya CRNP [address] [place] [address] Scheduled Procedures Name Priority Associated Diagnoses Date/Ti [...] 05/11/2008 LUNG CANCER SCREENING - USE SMARTSET [id number] Completed 09/19/2022, 04/04/2022, 09/15/2020, Additional history exists [...] filedocumented as of this encounter Care Teams Caramel Candy Maker Relationship Specialty Start Date End Date Rafa Vargas MD [address] [place] [address] PCP - General Family Medicine 02/28/17 documented as of this encounter
--- OUTSIDE RECORDS SUMMARY | 2023-01-04 12:30 | External Medical Summary | Summary of Care ---
Author Name Unknown Organization [facility] Address [address] [place] [address] Phone [phone] Care Team Providers Care Rn Iv Therapy Name Role Phone Rafa Vargas MD Primary Care Provider + Encounter Details Date Type Department Care Team (Late st Contact Info) Description 12/06/[address] [facility] [address] [place] [address] Rafa Vargas MD [address] [place] [address] Allergies Active Allergy Reactions Criticality Noted Date [...] Active Additional Information Patient taking differently:3 mL GxrdqssnvN9A PRN, Reported on 07/10/2022 Calcium 600+D3 Plus [...] discuss Declines Shingrix. 2020 CT chest sched @[facility] 08/16 TTE normal EF Gr I hammonds dys @[facility] 10/13 colon WNL fracisco 5y 10/13 scree [...] mRNA, LNP-s, No Pre serve, 2-Dose Series ([employer]) 06/06/2021,11/28/2020,04/23/2020,020 07/2020 Covid-19, Mrna, Lnp-s, Pf, B ivalent, 30 Mcg, IM, 12 yrs and above ([employer]) 12/18/2021 H1N1 2009 Influenza, IM 02/03/2009 Pneumococcal [...] PM EDT Called [facility] in [place] to check on Nocturnal pulse ox. [facility]. She stated [...] get a call regarding this from care [facility]?? Patient NEEDS to have this done in [...] Description 12/19/2022 4:20 PM EDT Telemedicine Neurology, [place] Alexei West [address] [place] [address] [place] [address] Cayden Lee MD [address] [place] [address] 12/21/2022 10:30 AM EDT Imaging Radiology [address] [place] [address] 01/18/2023 10:00 AM EST Office Visit Family Practice [facility] [address] [place] [address] Dinora Zelaya CRNP 132 [facility] [place] [address] Scheduled Procedures Name Priority Associated Diagnoses Date/Ti [...] 05/11/2008 LUNG CANCER SCREENING - USE SMARTSET [id number] Completed 09/19/2022, 04/04/2022, 09/15/2020, Additional history exists [...] filedocumented as of this encounter Care Teams Rn Iv Therapy Relationship Specialty Start Date End Date Rafa Vargas MD [address] [place] [address] PCP - General Family Medicine 02/28/17 documented as of this encounter
--- OUTSIDE RECORDS SUMMARY | 2023-01-04 12:30 | External Medical Summary | Summary of Care ---
Author Name Unknown Organization [facility] Address [address] [place] [address] Phone [phone] Care Team Providers Care Aerospace Medicine Physician Name Role Phone Rafa Vargas MD Primary Care Provider + Encounter Details Date Type Department Care Team (Late st Contact Info) Description 12/06/2022 Telephone Family Practice [facility] [address] [place] [address] Rafa Vargas MD [address] [place] [address] Allergies Active Allergy Reactions Criticality Noted Date [...] Active Additional Information Patient taking differently:3 mL WqrvugiiyN3C PRN, Reported on 07/10/2022 Calcium 600+D3 Plus [...] discuss Declines Shingrix. 2020 CT chest sched @[facility] 08/16 TTE normal EF Gr I hammonds dys @[facility] 10/13 colon WNL fracisco 5y 10/[address] wNL fracisco 1y Feb 2016- son . 01/11 DR Ga-consider Rx/career technical counselor re: of son Deviated nasal septum [...] mRNA, LNP-s, No Pre serve, 2-Dose Series ([employer]) 06/06/2021,11/28/2020,04/23/2020,020 07/2020 Covid-19, Mrna, Lnp-s, Pf, B ivalent, 30 Mcg, IM, 12 yrs and above ([employer]) 12/18/2021 H1N1 2009 Influenza, IM 02/03/2009 Pneumococcal [...] PM EDT Pt calling, they sat at [facility] until 2 pm today. The lady [...] PM EDT Called [facility] in [place] to check on Nocturnal pulse ox. Spoke with a member of [facility] pulse ox department. She stated [...] to follow up. Call went straight to voicemiil. LMOM. Will try again later * Telephone [...] Description 12/19/2022 4:20 PM EDT Telemedicine Neurology, [place] Alexei West [address] [place] [address] [place] [address] Cayden Lee MD [address] [place] [address] 12/21/2022 10:30 AM EDT Imaging Radiology [facility] [address] [address] [place] [address] 01/18/2023 10:00 AM EST Office Visit Family Practice [address] [place] [address] Dinora Zealya CRNP [address] [place] [address] Scheduled Procedures Name Priority Associated Diagnoses Date/Ti [...] 05/11/2008 LUNG CANCER SCREENING - USE SMARTSET [id number] Completed 09/19/2022, 04/04/2022, 09/15/2020, Additional history exists [...] filedocumented as of this encounter Care Teams Aerospace Medicine Physician Relationship Specialty Start Date End Date Rafa Vargas MD [address] [place] [address] PCP - General Family Medicine 02/28/17 documented as of this encounter
--- OUTSIDE RECORDS SUMMARY | 2023-01-04 12:30 | External Medical Summary | Summary of Care ---
Author Name Unknown Organization [facility] Address [address] [place] [address] Phone [phone] Care Team Providers Care Ict Developer Name Role Phone Rafa Vargas MD Primary Care Provider + Encounter Details Date Type Department Care Team (Late st Contact Info) Description 12/06/2022 Telephone Family Practice [facility] [address] [place] [address] Rafa Vargas MD [address] [place] [address] Allergies Active Allergy Reactions Criticality Noted Date [...] Active Additional Information Patient taking differently:3 mL LbrsvxinrT2D PRN, Reported on 07/10/2022 Calcium 600+D3 Plus [...] discuss Declines Shingrix. 2020 CT chest sched @[facility] 08/16 TTE normal EF Gr I hammonds dys @[facility] 10/13 colon WNL fracisco 5y 10/[address] wNL fracisco 1y Feb 2016- son . 01/11 DR Ga-consider Rx/reimbursement counselor re: of son Deviated nasal septum [...] mRNA, LNP-s, No Pre serve, 2-Dose Series ([email or web address]) 06/06/2021,11/28/2020,04/23/2020,020 07/2020 Covid-19, Mrna, Lnp-s, Pf, B ivalent, 30 Mcg, IM, 12 yrs and above ([email or web address]) 12/18/2021 H1N1 2009 Influenza, IM 02/03/2009 Pneumococcal [...] PM EDT Called [facility] in [place] to check on Nocturnal pulse ox. [facility]. She stated that [...] get a call regarding this from care [facility]?? Patient NEEDS to have this done in [...] Description 12/19/2022 4:20 PM EDT Telemedicine Neurology, [place] Alexei West [address] [place] [address] [place] [address] Cayden Lee MD [address] [place] [address] 12/21/2022 10:30 AM EDT Imaging Radiology [address] [place] [address] 01/18/2023 10:00 AM EST Office Visit Family Practice [facility] [address] [place] [address] Dinora Zelaya CRNP 132 [place] [address] Scheduled Procedures Name Priority Associated Diagnoses Date/Ti [...] 05/11/2008 LUNG CANCER SCREENING - USE SMARTSET [id number] Completed 09/19/2022, 04/04/2022, 09/15/2020, Additional history exists [...] filedocumented as of this encounter Care Teams Ict Developer Relationship Specialty Start Date End Date Rafa Vargas MD [address] [place] [address] PCP - General Family Medicine 02/28/17 documented as of this encounter
--- OUTSIDE RECORDS SUMMARY | 2023-01-04 12:31 | External Medical Summary | Summary of Care ---
Author Name Unknown Organization [facility] Address [address] [place] [address] Phone [phone] Care Team Providers Care Transition Social Worker Name Role Phone Rafa Vargas MD Primary Care Provider + Encounter Details Date Type Department Care Team (Late st Contact Info) Description 12/06/2022 Telephone Family Practice [facility] [address] [place] [address] Rafa Vargas MD [address] [place] [address] Allergies Active Allergy Reactions Criticality Noted Date [...] Active Additional Information Patient taking differently:3 mL VnistystlT8K PRN, Reported on 07/10/2022 Calcium 600+D3 Plus [...] Declines Shingrix. 2020 CT chest sched @[facility] 08/16 TTE normal EF Gr I hammonds dys @[facility] 10/13 colon WNL fracisco 5y 10/[address] wNL fracisco 1y Feb 2016- son . 01/11 DR Ga-consider Rx/psychotherapist counselor re: of son Deviated nasal septum [...] mRNA, LNP-s, No Pre serve, 2-Dose Series ([employer]) 06/06/2021,11/28/2020,04/23/2020,020 07/2020 Covid-19, Mrna, Lnp-s, Pf, B ivalent, 30 Mcg, IM, 12 yrs and above ([employer]) 12/18/2021 H1N1 2009 Influenza, IM 02/03/2009 Pneumococcal [...] PM EDT Called [facility] in [place] to check on Nocturnal pulse ox. [facility]. She stated that [...] MyG message. * Telephone Encounter - Lory gNo LPN - 12/11/2022 10:22 AM EDT Called [...] Description 12/19/2022 4:20 PM EDT Telemedicine Neurology, [place] Alexei West [address] [place] [address] [place] [address] Cayden Lee MD [address] [facility] [place] [address] 12/21/2022 10:30 AM EDT Imaging Radiology [address] [place] [address] 01/18/2023 10:00 AM EST Office Visit Family Practice [facility] [address] [facility] [place] [address] Dinora Zelaya CRNP [address] [place] [address] Scheduled Procedures Name Priority Associated Diagnoses Date/Ti [...] COPD 12/01/2023 11/30/2022 Albumin/Creatinine Ratio 03/02/2025 03/02/2022, 100 02/2020 Lipid Panel 08/14/2027 08/13/2022, 02/2020, 12/05/2019, Additional history exists DXA Scan 10/09/2029 10/09/2022, 08/26, 12/10/2006, Additional history exists Pneumococcal Vaccine: 65+ Years Completed 05/31/2017, 08/15/2015, 05/11/2008 LUNG CANCER SCREENING - USE SMARTSET [id number] Completed 09/19/2022, 04/04/2022, 09/15/2020, Additional history exists [...] filedocumented as of this encounter Care Teams Transition Social Worker Relationship Specialty Start Date End Date Rafa Vargas MD [address] [place] [address] PCP - General Family Medicine 02/28/17 documented as of this encounter
--- OUTSIDE RECORDS SUMMARY | 2023-01-04 12:31 | External Medical Summary | Summary of Care ---
Author Name Unknown Organization [facility] Address [address] [place] [address] Phone [phone] Care Team Providers Care Insulation Hoseman Name Role Phone Rafa Vargas MD Primary Care Provider + Encounter Details Date Type Department Care Team (Late st Contact Info) Description 12/06/2022 Telephone Family Practice [facility] [address] [place] [address] Rafa Vargas MD [address] [place] [address] Allergies Active Allergy Reactions Criticality Noted Date [...] Active Additional Information Patient taking differently:3 mL SuckpgpokG5R PRN, Reported on 07/10/2022 Calcium 600+D3 Plus [...] discuss Declines Shingrix. 2020 CT chest sched @[facility] 08/16 TTE normal EF Gr I hammonds dys @[facility] 10/13 colon WNL fracisco 5y 10/13 scree [...] mRNA, LNP-s, No Pre serve, 2-Dose Series ([employer]) 06/06/2021,11/28/2020,04/23/2020,020 07/2020 Covid-19, Mrna, Lnp-s, Pf, B ivalent, 30 Mcg, IM, 12 yrs and above ([employer]) 12/18/2021 H1N1 2009 Influenza, IM 02/03/2009 Pneumococcal [...] PM EDT Called [facility] in [place] to check on Nocturnal pulse ox. Spoke with a member of [facility] pulse ox department. She stated that [...] Description 12/19/2022 4:20 PM EDT Telemedicine Neurology, [place] Alexei West [address] [place] [address] [place] [address] Cayden Lee MD [address] [place] [address] 12/21/2022 10:30 AM EDT Imaging Radiology [address] [place] [address] 01/18/2023 10:00 AM EST Office Visit Family Practice [facility] [address] [facility] [place] [address] Dinora Zelaya CRNP [address] [place] [address] Scheduled Procedures Name Priority Associated Diagnoses Date/Ti [...] 05/11/2008 LUNG CANCER SCREENING - USE SMARTSET [id number] Completed 09/19/2022, 04/04/2022, 09/15/2020, Additional history exists [...] filedocumented as of this encounter Care Teams Insulation Hoseman Relationship Specialty Start Date End Date Rafa Vargas MD [address] [place] [address] PCP - General Family Medicine 02/28/17 documented as of this encounter
--- OUTSIDE RECORDS SUMMARY | 2023-01-04 12:31 | External Medical Summary | Summary of Care ---
Author Name Unknown Organization [facility] Address [address] [place] [address] Phone [phone] Care Team Providers Care Group Home Worker Name Role Phone Rafa Vargas MD Primary Care Provider + Encounter Details Date Type Department Care Team Description 12/06/2022 Telephone [facility] Practice [facility] [place] [address] Rafa Vargas MD [address] [place] [address] Allergies Active Allergy Reactions Severity Noted Date Comments Oxycodone 09/17/2019 hives documented as of this encounter (statuses as of 12/14/2022) Medications Medication Sig Dispensed Refills Start Date [...] Active Additional Information Patient taking differently:3 mL EpszuzwwpN9I PRN, Reported on 07/10/2022 Calcium 600+D3 Plus [...] as of this encounter (statuses as of 12/14/2022) Active Problems Problem Noted Date Heart failure 09/06/2022 Paroxysmal atrial fibrillation 3 Overview: 07/17 start eliquis Osteopenia of lumbar spine 03/09/2022 Status post total right knee replacement 08/13/2021 Nocturnal hypoxemia 11/18/2020 Ground glass opacity present on imaging of lung 08/25/2020 Centrilobular emphysema 08/25/2020 Basal cell carcinoma (BCC) of forehead 1 04/08/2018 Status post right hip replacement 2018 RLS (restless legs syndrome) 06/25/2017 Well adult exam 01/17/2017 Overview: 10/17 NOT taking Xarelto-need discuss Declines Shingrix. 2020 CT chest sched @[facility] 08/16 TTE normal EF Gr I hammonds dys @[facility] 10/13 colon WNL fracisco 5y 10/[address] wNL fracisco 1y Feb 2016- son . 01/11 DR Ga-consider Rx/patient financial counselor re: of son Deviated nasal septum 06/28/2016 History of tobacco use 04/19/2015 Overview: quit 03/29/15 COPD, group B, by GOLD 2017 classificati on 01/16/2011 Dyslipidemia HTN, goal below 130/80 Left rotator cuff tear documented as of this encounter (statuses as of 12/14/2022) Resolved Problems Problem Noted Date Resolved Date Tobacco use disorder 08/25/2020 11/18/2020 Exacerbation of intermittent asthma 12/31/2016 12/31/2016 Severe obesity with body mas s index (BMI) of 35.0 to 39.9 with serious comorbidity 12/31/2016 12/15/2019 Overview: bmi= 37.98 03/02/16 ICD-10 update of inactive diagnosis Mixed dyslipidemia 11/02/2016 10/10/2018 Globus hystericus 06/28/2016 10/10/2018 Body mass index 35.0-35.9, adult 04/29/2015 11/02/2016 Overview: bmi= 35.16 04/29/15 Acute costochondritis 04/19/2015 11/02/2016 Obesity, Class I, BMI 30.0-34.9 (see actual BMI) 03/23/2014 11/02/2016 Overview: BMI= 34.64 03/23/14 H/O adenomatous polyp of colon 09/10/2012 0 10/10/2018 Dyslipidemia, goal to be determined 02/03/2009 01/24/2013 Overview: Per Lipid Taxonomy. Benign neoplasm of colon 08/12/2007 017 Overview: adenomatous/repeat colonoscopy in 3 yrs Mixed dyslipidemia 10/23/2004 02/03/2009 Overview: Per Lipid Taxonomy. ADVANCE DIRECTIVE INFORMATION 09/07/2004 Overview: No, Advance Directive brochure given to patient. COUGH CHRONIC 09/07/2004 04/19/2015 Shortness of breath 09/07/2004 04/19/2015 Painful respiration 09/07/2004 04/19/2015 Tobacco use disorder 09/07/2004 03/25/2008 Overview: Resolved per Duplicate Protocol #2. Menopause 09/21/2003 04/19/2015 PLEURISY, VIRAL 03/26/2000 04/19/2015 Tobacco use disorder 03/26/2000 04/19/2015 CHR DUODENAL ULCER NOS 09/02/1998 6 documented as of this encounter (statuses as of 12/14/2022) Immunizations Name Administration Dates Next Due COVID-19 mRNA, LNP-s, No Pre serve, 2-Dose Series ([employer]) 06/06/2021,11/28/2020,04/23/2020,07/2020 Covid-19, Mrna, Lnp-s, Pf, B ivalent, 30 [...] = 0.6 oz pur e alcohol) occ Food Insecurity Answer Date Recorded Within the past 12 months, y ou worried that your food would run out before you got money to buy more. Never true 10/04/2021 Within the past 12 months, t he food you bought just didn't last and you didn't have money to get more. Never true 10/04/2021 Sex Assigned at Date Recorded Female 10/04/2021 10:18 AM EDT Job Start Date Occupation Industry Not on file Not on file Not on file documented as of this encounter Miscellaneous Notes * Telephone Encounter - Lory Ngo LPN - 12/12/2022 2:51 PM EDT Called [facility] in [place] to check on Nocturnal pulse ox. [facility]. She stated that [...] Plan of Treatment Upcoming Encounters Date Type Specialty Care Team Description 12/19/2022 Telemedicine Neurology Cayden Lee MD [address] [facility] [place] [address] 12/21/2022 Imaging Radiology 01/18/2023 Office Visit Family Medicine Dinora Zelaya CRNP [address] [place] [address] Scheduled Procedures Name Priority Associated Diagnoses Date/Ti [...] 05/11/2008 LUNG CANCER SCREENING - USE SMARTSET [id number] Completed 09/19/2022, 04/04/2022, 09/15/2020, Additional history exists [...] filedocumented as of this encounter Care Teams Group Home Worker Relationship Specialty Start Date End Date Rafa Vargas MD [address] [place] [address] PCP - General Family Medicine 02/28/17 documented as of this encounter
--- OUTSIDE RECORDS SUMMARY | 2023-01-04 12:31 | External Medical Summary | Summary of Care ---
Author Name Unknown Organization [facility] Address [address] [place] [address] Phone [phone] Care Team Providers Care Women'S Activities Adviser Name Role Phone Rafa Vargas MD Primary Care Provider + Encounter Details Date Type Department Care Team Description 12/06/2022 Telephone Family Practice [facility] [place] [address] Rafa Vargas MD [address] [place] [address] Allergies Active Allergy Reactions Severity Noted Date [...] Active Additional Information Patient taking differently:3 mL BfqffflfrO8F PRN, Reported on 07/10/2022 Calcium 600+D3 Plus [...] discuss Declines Shingrix. 2020 CT chest sched @[facility] 08/16 TTE normal EF Gr I hammonds dys @[facility] 10/13 colon WNL fracisco 5y 10/[address] wNL fracisco 1y Feb 2016- son . 01/11 DR Ga-consider Rx/addictions counselor re: of son Deviated nasal septum [...] mRNA, LNP-s, No Pre serve, 2-Dose Series ([employer]) 06/06/2021,11/28/2020,04/23/2020,07/2020 Covid-19, Mrna, Lnp-s, Pf, B ivalent, [...] PM EDT Called [facility] in [place] to check on Nocturnal pulse ox. [facility]. She stated that [...] Telemedicine Neurology Cayden Lee MD [address] [facility] [place] [address] 12/21/2022 Imaging Radiology 01/18/2023 Office Visit Family Medicine Dinora Zelaya CRNP [address] [place] [address] Scheduled Procedures Name Priority Associated Diagnoses Date/Ti [...] 05/11/2008 LUNG CANCER SCREENING - USE SMARTSET [id number] Completed 09/19/2022, 04/04/2022, 09/15/2020, Additional history exists [...] filedocumented as of this encounter Care Teams Women'S Activities Adviser Relationship Specialty Start Date End Date Rafa Vargas MD [address] [place] [address] PCP - General Family Medicine 02/28/17 documented as of this encounter
--- OUTSIDE RECORDS SUMMARY | 2023-01-04 12:31 | External Medical Summary | Summary of Care ---
Author Name Unknown Organization [facility] Address [address] [place] [address] Phone [phone] Care Team Providers Care Security Assurance Specialist Name Role Phone Rafa Vargas MD Primary Care Provider + Encounter Details Date Type Department Care Team Description 12/06/2022 Telephone Family Practice [facility] [place] [address] Rafa Vargas MD [address] [place] [address] Allergies Active Allergy Reactions Severity Noted Date Comments Oxycodone 09/17/2019 hives documented as of this encounter (statuses as of 12/13/2022) Medications Medication Sig Dispensed Refills Start Date [...] Active Additional Information Patient taking differently:3 mL PwxlqcsgvE0M PRN, Reported on 07/10/2022 Calcium 600+D3 Plus [...] as of this encounter (statuses as of 12/13/2022) Active Problems Problem Noted Date Heart failure [...] discuss Declines Shingrix. 2020 CT chest sched @[facility] 08/16 TTE normal EF Gr I hammonds dys @[facility] 10/13 colon WNL fracisco 5y 10/[address] wNL fracisco 1y Feb 2016- son . 01/11 DR Ga-consider Rx/summer counselor re: of son Deviated nasal septum 06/28/2016 History of tobacco use 04/19/2015 Overview: quit 03/29/15 COPD, group B, by [employer] 2017 classificati on 01/16/2011 Dyslipidemia HTN, goal below 130/80 Left rotator cuff tear documented as of this encounter (statuses as of 12/13/2022) Resolved Problems Problem Noted Date Resolved Date [...] as of this encounter (statuses as of 12/13/2022) Immunizations Name Administration Dates Next Due COVID-19 mRNA, LNP-s, No Pre serve, 2-Dose Series ([employer]) 06/06/2021,11/28/2020,04/23/2020,07/2020 Covid-19, Mrna, Lnp-s, Pf, B ivalent, [...] PM EDT Called [facility] in [facility] to check on Nocturnal pulse ox. Spoke with a member of the Nocturnal pulse ox department. She stated that the [...] Telemedicine Neurology Cayden Lee MD [address] [facility] [place] [address] 12/21/2022 Imaging Radiology 01/18/2023 Office Visit Family Medicine Dinora Zelaya CRNP [address] [place] [address] Scheduled Procedures Name Priority Associated Diagnoses Date/Ti [...] 05/11/2008 LUNG CANCER SCREENING - USE SMARTSET [id number] Completed 09/19/2022, 04/04/2022, 09/15/2020, Additional history exists [...] filedocumented as of this encounter Care Teams Security Assurance Specialist Relationship Specialty Start Date End Date Rafa Vargas MD [address] [place] [address] PCP - General Family Medicine 02/28/17 documented as of this encounter
--- OUTSIDE RECORDS SUMMARY | 2023-01-04 12:31 | External Medical Summary | Summary of Care ---
Author Name Unknown Organization [facility] Address [address] [place] [address] Phone [phone] Care Team Providers Care Folder Machine Name Role Phone Rafa Vargas MD Primary Care Provider + Encounter Details Date Type Department Care Team Description 12/06/2022 Telephone Family Practice [facility] [place] [address] Rafa Vargas MD [address] [place] [address] Allergies Active Allergy Reactions Severity Noted Date [...] Active Additional Information Patient taking differently:3 mL CqdxcrmkqU9V PRN, Reported on 07/10/2022 Calcium 600+D3 Plus [...] discuss Declines Shingrix. 2020 CT chest sched @[facility] 08/16 TTE normal EF Gr I hammonds dys @[facility] 10/13 colon WNL fracisco 5y 10/[address] wNL fracisco 1y Feb 2016- son . 01/11 DR Ga-consider Rx/general counsel re: of son Deviated nasal septum 06/28/2016 [...] mRNA, LNP-s, No Pre serve, 2-Dose Series ([employer]) 06/06/2021,11/28/2020,04/23/2020,07/2020 Covid-19, Mrna, Lnp-s, Pf, B ivalent, [...] PM EDT Called [facility] in [facility] to check on Nocturnal pulse ox. Spoke [...] Telemedicine Neurology Cayden Lee MD [address] [facility] [place] [address] 12/21/2022 Imaging Radiology 01/18/2023 Office Visit Family Medicine Dinora Zelaya CRNP [address] [place] [address] Scheduled Procedures Name Priority Associated Diagnoses Date/Ti [...] 05/11/2008 LUNG CANCER SCREENING - USE SMARTSET [id number] Completed 09/19/2022, 04/04/2022, 09/15/2020, Additional history exists [...] filedocumented as of this encounter Care Teams Folder Machine Relationship Specialty Start Date End Date Rafa Vargas MD [address] [place] [address] PCP - General Family Medicine 02/28/17 documented as of this encounter
--- OUTSIDE RECORDS SUMMARY | 2023-01-04 12:31 | External Medical Summary | Summary of Care ---
Author Name Unknown Organization [facility] Address [address] [place] [address] Phone [phone] Care Team Providers Care Business Excellence Leader Name Role Phone Rafa Vargas MD Primary Care Provider + Encounter Details Date Type Department Care Team (Late st Contact Info) Description 12/06/2022 Telephone Family Practice [facility] [address] [place] [address] Rafa Vargas MD [address] [place] [address] Allergies Active Allergy Reactions Criticality Noted Date [...] Active Additional Information Patient taking differently:3 mL AevmuwwnlT1R PRN, Reported on 07/10/2022 Calcium 600+D3 Plus [...] discuss Declines Shingrix. 2020 CT chest sched @[facility] 08/16 TTE normal EF Gr I hammonds dys @[facility] 10/13 colon WNL fracisco 5y 10/[address] wNL fracisco 1y Feb 2016- son . 01/11 DR Ga-consider Rx/pet adoption counselor re: of son Deviated nasal septum [...] mRNA, LNP-s, No Pre serve, 2-Dose Series ([employer]) 06/06/2021,11/28/2020,04/23/2020,020 07/2020 Covid-19, Mrna, Lnp-s, Pf, B ivalent, 30 Mcg, IM, 12 yrs and above ([employer]) 12/18/2021 H1N1 2009 Influenza, IM 02/03/2009 Pneumococcal [...] PM EDT Called [facility] in [place] to check on Nocturnal pulse ox. Spoke with a member of [facility] pulse ox department. She stated that the [...] Description 12/19/2022 4:20 PM EDT Telemedicine Neurology, Salix Alexei [place] [address] [place] [address] [place] [address] Cayden Lee MD [address] [facility] [address] 12/21/2022 10:30 AM EDT Imaging Radiology [address] [place] [address] 01/18/2023 10:00 AM EST Office Visit Family Practice [facility] [address] [place] [address] Dinora Zelaya CRNP [address] [place] [address] Scheduled Procedures Name Priority Associated Diagnoses Date/Ti [...] Additional history exists DXA Scan 10/09/2029 10/09/2022, 07/2 , 12/10/2006, Additional history exists Pneumococcal Vaccine: 65+ Years Completed 05/31/2017, 08/15/2015, 05/11/2008 LUNG CANCER SCREENING - USE SMARTSET 65625 Completed 09/19/2022, 04/04/2022, 09/15/2020, Additional history exists [...] filedocumented as of this encounter Care Teams Business Excellence Leader Relationship Specialty Start Date End Date Rafa Vargas MD [address] [facility] [place] [address] PCP - General Family Medicine 02/28/17 documented as of this encounter
--- OUTSIDE RECORDS SUMMARY | 2023-01-04 12:32 | External Medical Summary | Summary of Care ---
Author Name Unknown Organization [facility] Address [address] [place] [address] Phone [phone] Care Team Providers Care Roof Cement And Paint Maker Helper Name Role Phone Rafa Vargas MD Primary Care Provider + Reason for Visit * Reason Onset Date Comments Med Request 11/28/2022 Encounter Details Date Type Department Care Team Description 11/28/2022 Telephone Family Practice [facility] [address] [place] [address] Rafa Vargas MD [address] [place] [address] Med Request Allergies Active Allergy Reactions Severity Noted Date Comments Oxycodone 09/17/2019 hives documented as of this encounter (statuses as of 11/29/2022) Medications Medication Sig Dispensed Refills Start Date [...] Active Additional Information Patient taking differently:3 mL [id number] PRN, Reported on 07/10/2022 Calcium 600+D3 Plus [...] MORNING 180 Each 1 08/14/2022 4 Active Losartan Potassium 50 MG Oral Tablet (Cozaar)Indications:H TN, goal below 140/90 TAKE ONE TABLET BY MOUTH EVERY DAY 90 Tablet 1 08/14/2022 4 Active Apixaban 5 MG Oral Tablet (Eliquis)Indications: Paroxysmal atrial fibrillation (HCC) TAKE ONE TABLET BY MOUTH IN THE MORNING AND ONE TABLET BEFORE BEDTIME 180 Tablet 3 08/13/2022 4 Active Additional Information Patient not taking.Reported on 10/18/2022 Lovastatin 40 MG Oral Tablet TAKE ONE [...] CHEW. 360 Tablet 3 03/20/2022 4 Active DULoxetine HCl 20 MG Oral Capsule Delayed Release Particles (Cymbalta) Take 1 Capsule by mouth in the morning. Do not cut, crush or chew. 30 Capsule 1 09/06/2022 Active documented as of this encounter (statuses as of 11/29/2022) Active Problems Problem Noted Date Heart failure [...] discuss Declines Shingrix. 2020 CT chest sched @[facility] 08/16 TTE normal EF Gr I hammonds dys @[facility] 10/13 colon WNL fracisco 5y [...] as of this encounter (statuses as of 11/29/2022) Resolved Problems Problem Noted Date Resolved Date [...] as of this encounter (statuses as of 11/29/2022) Immunizations Name Administration Dates Next Due COVID-19 mRNA, LNP-s, No Pre serve, 2-Dose Series ([employer]) 06/06/2021,11/28/2020,04/23/2020,02/0 07/2020 Covid-19, Mrna, Lnp-s, Pf, B ivalent, [...] encounter Miscellaneous Notes * Telephone Encounter - Dorota Talbert [facility] - 11/28/2022 11:53 AM EDT Pt calling stating she had labs done and is upset that no one contacted her to let her know that she had results and they found that she had Polymyalgia and Polyarthralgia. Pt is asking where she goes from here. She is asking if there is going to be a medication prescribed. Pt states she does do therapy twice a week already. Pt can be contacted at [phone]. Please advise. Thank you, Jessica Talbert Clinical Athletic Instructor [facility] ([facility]) 11/28/2022,11:56 AM documented in this encounter Plan of Treatment Upcoming Encounters Date Type Specialty Care Team Description 12/21/2022 Imaging Radiology 01/18/2023 Office Visit Family Medicine Dinora Zelaya CRNP [address] [place] [address] Scheduled Procedures Name Priority Associated Diagnoses Date/Ti [...] 08/01/2023 07/31/2022, 04/2021, 08/04/2020, Additional history exists O2 ASSESSMENT COMPLETED IN PAST YEAR FOR COPD 09/07/2023 09/06/2022 COLONOSCOPY-EVERY 5 YRS AGES 18-100 10/10/2023 10/09/2018, 10/09/2018, 06/04/2013, Additional history exists Albumin/Creatinine Ratio 03/02/2025 03/02/2022, 02/2020 Lipid Panel 08/14/2027 08/13/2022, 02/2020, 12/05/2019, Additional history exists DXA Scan 10/09/2029 10/09/2022, 08/26, 12/10/2006, Additional history exists Pneumococcal Vaccine: 65+ Years Completed 05/31/2017, 08/15/2015, 05/11/2008 LUNG CANCER SCREENING - USE SMARTSET 27616 Completed 09/19/2022, 04/04/2022, 09/15/2020, Additional history exists [...] filedocumented as of this encounter Care Teams Roof Cement And Paint Maker Helper Relationship Specialty Start Date End Date Rafa Vargas MD [address] [place] [address] PCP - General Family Medicine 02/28/17 documented as of this encounter
--- OUTSIDE RECORDS SUMMARY | 2023-01-04 12:32 | External Medical Summary | Summary of Care ---
Author Name Unknown Organization [facility] Address [address] [place] [address] Phone [phone] Care Team Providers Care Business English Instructor Name Role Phone Rafa Vargas MD Primary Care Provider + Encounter Details Date Type Department Care Team Description 10/17/2022 Orders Only Outcomes Research Department [address], [place] [id number] Katey Lara CHRA [employer] Other*[id number] Allergies Active Allergy Reactions Severity Noted Date Comments Oxycodone 09/17/2019 hives documented as of this encounter (statuses as of 10/17/2022) Medications Medication Sig Dispensed Refills Start Date [...] Active Additional Information Patient taking differently:3 mL FuteqdyeiO0D PRN, Reported on 07/10/2022 Calcium 600+D3 Plus [...] BEDTIME 180 Tablet 3 08/13/2022 4 Active Lovastatin 40 MG Oral Tablet [...] as of this encounter (statuses as of 10/17/2022) Active Problems Problem Noted Date Heart failure [...] syndrome) 06/25/2017 Well adult exam 01/17/2017 Overview: Declines Shingrix. 2020 CT chest sched @[facility] 08/16 TTE normal EF Gr I hammonds dys @[facility] 10/13 colon WNL fracisco 5y 10/[address] wNL fracisco 1y Feb 2016- son . 01/11 DR Ga-consider Rx/financial aid counselor re: of son Deviated nasal septum 06/28/2016 History of tobacco use 04/19/2015 Overview: quit 03/29/15 COPD, group B, by GOLD 2017 classificati on 01/16/2011 Dyslipidemia HTN, goal below 130/80 Left rotator cuff tear documented as of this encounter (statuses as of 10/17/2022) Resolved Problems Problem Noted Date Resolved Date [...] as of this encounter (statuses as of 10/17/2022) Immunizations Name Administration Dates Next Due COVID-19 mRNA, LNP-s, No Pre serve, 2-Dose Series ([employer]) 06/06/2021,11/28/2020,04/23/2020,07/2020 Covid-19, Mrna, Lnp-s, Pf, B ivalent, 30 Mcg, IM, 12 yrs and above ([employer]) 12/18/2021 H1N1 2009 Influenza, IM 02/03/2009 Pneumococcal Conjugate Vacc, 13 Valent (Prevnar) 08/15/2015 Pneumococcal Polysaccharide PPV23 (Pneumovax) 05/31/2017,05/11/2008 Season Influenza, Cell Culte r, 18+ Yrs, With Preserv (Flucelvax) 12/26/2017 Seasonal Influenza, PF, 6 mo ns & Above, IM , (Flulaval) 12/03/2018,11/19/2016 Seasonal Influenza, Quadriva lent Hd (Fluzone Hd) [...] on file documented as of this encounter Plan of Treatment Upcoming Encounters Date Type Specialty Care Team Description 10/18/2022 Office Visit Family Medicine Dinora Zelaya CRNP [address] [place] [address] 10/31/2022 Office Visit Cardiology Smitha Mcdermott CRNP [address] [address] 12/21/2022 Imaging Radiology Scheduled Orders Name Type Priority Associated Diagnoses Orde r Schedule MYCODE SUBSEQUENT ADULT Lab Routine [employer] Other*[id number] Every 6 Months for 2 Occurrences starting 10/17/2022 until 11/06/2023 Scheduled Procedures Name Priority Associated Diagnoses Date/Ti me COLONOSCOPY FLEXIBLE PROXIMAL DIAGNOSTIC Recall History of colon polyps Health Maintenance Due Date Last Done Comments Alpha-1 Antitrypsin 1968 Zoster Vaccines (1 of 2) 2000 DTaP,Tdap,and Td Vaccines (2 - Td or Tdap) 10/16/2020 10/16/2010, 09/21/2003, 02/25/1993 Depression Screening, Annual for Pts 12 and Over 10/04/2022 10/04/2021 Influenza Vaccine (FLU shot) (#1) 2022 11/10/2021, [...] Vaccine: 65+ Years Completed 05/31/2017, 08/15/2015, 05/11/2008 COVID-19 Vaccine Completed 12/18/2021, 01/2022, 06/06/2021, Additional history exists LUNG CANCER SCREENING - USE SMARTSET 47102 Completed 09/19/2022, 04/04/2022, 09/15/2020, Additional history exists [...] as of this encounter Visit Diagnoses Diagnosis [employer] Other*[id number] documented in this encounter Care Teams Business English Instructor Relationship Specialty Start Date End Date Rafa Vargas MD [address] [place] [address] PCP - General Family Medicine 02/28/17 documented as of this encounter
--- OUTSIDE RECORDS SUMMARY | 2023-01-04 12:32 | External Medical Summary | Summary of Care ---
Author Name Unknown Organization [facility] Address [address] [place] [address] Phone [phone] Care Team Providers Care Biomedical Equipment Technician Name Role Phone Rafa Vargas MD Primary Care Provider + Reason for Visit * Reason Comments Re-Check 6 wk return pt stopp ed Eliquis 2 weeks ago. Could not take her arthritis med with Eliquis. Encounter Details Date Type Department Care Team Description 10/18/2022 [facility] [place] [address] [facility] [address] [facility] [address] Paroxysmal atrial fibrillation (HCC)*; DDD (degenerative disc disease), cervical; Polyarthralgia; COPD, group B, by GOLD 2017 classification (HCC); Nocturnal hypoxemia; HTN, goal below 130/80; CHALO (generalized anxiety disorder) Allergies Active Allergy Reactions Severity Noted Date Comments Oxycodone 09/17/2019 hives documented as of this encounter (statuses as of 10/18/2022) Medications Medication Sig Dispensed Refills Start Date [...] Active Additional Information Patient taking differently:3 mL UbuswnnxpR6B PRN, Reported on 07/10/2022 Calcium 600+D3 Plus [...] as of this encounter (statuses as of 10/18/2022) Active Problems Problem Noted Date Heart failure 09/06/2022 Paroxysmal atrial fibrillation 3 Overview: 07/17 start eliquis Osteopenia of lumbar spine 03/09/2022 Status post total right knee replacement 08/13/2021 Nocturnal hypoxemia 11/18/2020 Ground glass opacity present on imaging of lung 08/25/2020 Centrilobular emphysema 08/25/2020 Basal cell carcinoma (BCC) of forehead 1 04/08/2018 Status post right hip replacement 2018 RLS (restless legs syndrome) 06/25/2017 Deviated nasal septum 06/28/2016 History of tobacco use 04/19/2015 Overview: quit 03/29/15 COPD, group B, by GOLD 2017 classificati on 01/16/2011 Dyslipidemia HTN, goal below 130/80 Left rotator cuff tear documented as of this encounter (statuses as of 10/18/2022) Resolved Problems Problem Noted Date Resolved Date Tobacco use disorder 08/25/2020 11/18/2020 Well adult exam 01/17/2017 10/18/2022 Overview: Declines Shingrix. 2020 CT chest sched @[facility] 08/16 TTE normal EF Gr I hammonds dys @[facility] 10/13 colon WNL fracisco 5y 10/[address] wNL fracisco 1y Feb 2016- son . 01/11 DR Ga-consider Rx/certified credit counselor re: of son Exacerbation of intermittent asthma 12/31/2016 12/31/2016 Severe [...] as of this encounter (statuses as of 10/18/2022) Immunizations Name Administration Dates Next Due COVID-19 mRNA, LNP-s, No Pre serve, 2-Dose Series ([employer]) 06/06/2021,11/28/2020,04/23/2020,07/2020 Covid-19, Mrna, Lnp-s, Pf, B ivalent, [...] on file documented as of this encounter Last Filed Vital Signs Vital Sign Reading Time Taken Comments Blood Pressure 140/80 10/18/2022 9:27 AM EDT Pulse 72 10/18/2022 9:27 AM EDT Temperature - - Respiratory Rate - - Oxygen Saturation - - Inhaled Oxygen Concentration - - Weight 80.4 kg (177 lb 5 oz) 10/18/2022 9:27 AM EDT Height - - Body Mass Index 31.66 03/09/2022 9:44 AM EST documented in this encounter Progress Notes * Dinora ClaySALOMON [place] - 10/18/2022 9:34 AM EDT Follow up Family Medicine Visit CC: Chief Complaint Patient presents with Re-Check 6 wk return pt stopped Eliquis 2 weeks ago. Could not take her arthritis med with Eliquis. History of Present Illness: Niya Escudero is a 72 year old female presenting for follow up. She stopped eliquis because she wanted to take her voltaren. She reports severe body pain so this was more improvement. She restarted the voltaren. She started cymbalta at last visit for mood and body. Feels more relaxed. Feels less stressed. Feels less emotional. Still having bilateral upper arm pain. X ray confirmed DDD. She is working with PT. 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 Comment: [employer] Tobacco Use Smoking status: Former Packs/day: 1.00 Years: 49.00 Pack years: 49.00 Types: Cigarettes Quit date: 03/29/2015 Years since quittin.5 Smokeless tobacco: Never Vaping Use Vaping Use: Never used Substance and Sexual Activity Alcohol use: Yes Comment: occ Drug use: No Sexual activity: Never Comment: [id number]. 3 sons (2alive) 7 grandkids. Other Topics Concern Not on file Social History Narrative Grandkids spread out. Still subs at work. 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 H/O adenomatous polyp of colon 09/10/2012 History of tobacco use 04/19/2015 quit 03/29/15 HTN, goal below 140/90 Left rotator cuff tear Menopause Mixed dyslipidemia Morbid obesity, unspecified obesity type (HCC) 05/31/2017 Paroxysmal atrial fibrillation (HCC) 07/10/202207/17 start eliquis RLS (restless legs syndrome) 06/25/2017 Status post right hip replacement 12/03/2018 Status post total right knee replacement 08/13/2021 Past Surgical History: Procedure Laterality Date ARTHROPLASTY KNEE TOTAL Right 08/11/2021 Dr Smith [facility] CATARACT SURGERY,COMPLEX Left 08/2018 Dr Alexis CATARACT SURGERY,COMPLEX Right 08/2018 Dr Alexis COLONOSCOPY W/ BIOPSY (RECTUM) 08/12/2007 adenomatous, repeat in 3years COLONOSCOPY, DIAGNOSTIC (RECTUM) 06/04/2013 COLONOSCOPY FLEXIBLE PROXIMAL DIAGNOSTIC performed by Ida Staples DO at [facility] COLONOSCOPY, DIAGNOSTIC (RECTUM) 10/09/2018 diverticulosis, repeat 5 yrs/COLONOSCOPY FLEXIBLE PROXIMAL DIAGNOSTIC performed by Ida Staples DO at [facility] COLORECTAL CANCER SCREEN; COLON 2000 normal, repeat in 2004 LIGATE/CUT OVIDUCT(S) Tubal Ligation SHOULDER ARTHROSCOPY SURGERY Left 07/11/2017 Dr Smith rotator cuff repair TOTAL HIP REPLACEMENT & PROSTHESIS Right 03/2018 Dr Smith Outpatient Medications Marked as Taking for the 10/18/22 encounter (Office Visit) with SALOMON Chin Medication Sig DULoxetine HCl 20 MG Oral Capsule Delayed Release Particles (Cymbalta) Take 1 Capsule by mouth in the morning. Do not cut, crush or chew. Pkejwrjxflb-Jwjngtjxz-Mfaule 200-62.5-25 MCG/ACT Aerosol Powder Breath Activated (Trelegy Ellipta) INHALE ONE PUFF BY MOUTH EVERY MORNING Gabapentin 100 MG Oral Capsule (Neurontin) TAKE ONE CAPSULE BY MOUTH EVERY DAY AT DINNER AND TWO CAPSULES ONE HOUR BEFORE BEDTIME Losartan Potassium 50 MG Oral Tablet (Cozaar) TAKE ONE TABLET BY MOUTH EVERY DAY Montelukast Sodium 10 MG Oral Tablet (Singulair) TAKE ONE TABLET BY MOUTH AT BEDTIME Calcium 600+D3 Plus Minerals 600-800 MG-UNIT Oral Tablet Take by mouth daily. Ipratropium-Albuterol 0.5-2.5 (3) MG/3ML Inhalation Solution (Duoneb) Inhale 3 mL via nebulizer in the morning and 3 mL at noon and 3 mL in the evening and 3 mL before bedtime. (Patient taking differently: Inhale 3 mL via nebulizer every 6 hours as needed.) Lovastatin 40 MG Oral Tablet TAKE ONE TABLET BY MOUTH AT BEDTIME Albuterol Sulfate HFA 108 (90 Base) MCG/ACT Inhalation Aerosol Solution INHALE TWO PUFFS BY MOUTH EVERY 4 HOURS NEEDED FOR WHEEZING Levocetirizine Dihydrochloride 5 MG Oral Tablet TAKE ONE TABLET BY MOUTH EVERY EVENING guaiFENesin ER 600 MG Oral Tablet Extended Release 12 Hour (Humibid LA) TAKE TWO TABLETS BY MOUTH EVERY MORNING AND TWO TABLETS BEFORE BEDTIME - TAKE WITH PLENTY OF WATER. DO NOT CUT, CRUSH OR CHEW. oxygen IN GAS Use 2 L/min(Oxygen) as directed at bedtime. omeprazole (PRILOSEC) 20 MG CPDR Take 1 Capsule by mouth in the morning. 1 hour before the first meal of the day. Review of patient's allergies indicates: Allergen Reactions Oxycodone hives Most Recent Immunizations Administered Date(s) Administered COVID-19 mRNA, LNP-s, No Preserve, 2-Dose Series ([employer]) 06/06/2021 Covid-19, Mrna, Lnp-s, Pf, Bivalent, 30 Mcg, IM, 12 yrs and above ([employer]) 12/18/2021 H1N1 2009 Influenza, IM 02/03/2009 Pneumococcal Conjugate Vacc, 13 Valent (Prevnar) 08/15/2015 Pneumococcal Polysaccharide PPV23 (Pneumovax) 05/31/2017 Season Influenza, Cell Culter, 18+ Yrs, With Preserv (Flucelvax) 12/26/2017 Seasonal Influenza, PF, 6 mons & Above, IM , (Flulaval) 12/03/2018 Seasonal Influenza, Quadrivalent Hd (Fluzone Hd) 11/10/2021 Seasonal Influenza, Quadrivalent Hd, 65+ Yrs 11/30/2019 Seasonal Influenza, Quadrivalent, No Preserve, IM 11/16/2015 Seasonal Influenza, Split, IIV3, With Preserve, Inj 11/23/2014 TD - Tetanus/Diptheria (ADULT) 09/21/2003 TDAP (age 11 and older)(Adacel) 10/16/2010 Review of Systems: Review of Systems Constitutional: Negative for fatigue. Respiratory: Positive for wheezing. Negative for cough and shortness of breath. Cardiovascular: Negative for chest pain, palpitations and leg swelling. Psychiatric/Behavioral: Negative for dysphoric mood and suicidal ideas. The patient is not nervous/anxious. Physical Exam: BP 140/80 | Pulse 72 | Wt 80.4 kg (177 lb 5 oz) | LMP 05/20/1999 | BMI 31.66 kg/m | BSA 1.89 m Physical Exam HENT: Head: Normocephalic. Cardiovascular: Rate and Rhythm: Normal rate and regular rhythm. Pulmonary: Effort: Pulmonary effort is normal. Breath sounds: Decreased breath sounds present. Neurological: Mental Status: She is alert and oriented to person, place, and time. Psychiatric: Attention and Perception: Attention normal. Mood and Affect: Mood normal. Speech: Speech normal. Behavior: Behavior normal. Behavior is cooperative. Thought Content: Thought content normal. Cognition and Memory: Cognition and memory normal. Judgment: Judgment normal. Assessment and Plan: 1. Paroxysmal atrial fibrillation (HCC) NSR today Patient stopped eliquis and prefers no to restart. She is aware of risks including stroke, [place] or PE that could be fatal and wishes to remain off of eliquis 2. DDD (degenerative disc disease), cervical C5-6 C/w with bilateral arm pain Continue PT On cymbalta and voltaren 3. Polyarthralgia Ongoing Voltaren controls this and she prefer to remain on voltaren and stop eliquis- she stopped 2 weeks ago 4. COPD, group B, by GOLD 2017 classification (HCC) STABLE 5. Nocturnal hypoxemia CONTINUE OXYGEN AT NIGHT 6. HTN, goal below 130/80 Mild elevation 7. CHALO (generalized anxiety disorder) Improved with start of cymbalta I have advised the patient to call our office incase of any worsening or new symptoms. I spent a total of 40-54 minutes (exact time 40 mins) on the date of service in preparation, delivery, and documentation of the care provided to Niya Escudero excluding any time spent inthe performance of separately billed services. Venus, MSN, SALOMON [facility] documented in this encounter Plan of Treatment Upcoming Encounters Date Type Specialty Care Team Description 10/31/2022 Office Visit Cardiology Smitha Mcdermott CRNP [address] [place] [phone] 12/21/2022 Imaging Radiology 01/18/2023 Office Visit Family Medicine Dinora Zelaya CRNP [address] [place] [address] Scheduled Procedures Name Priority Associated Diagnoses Date/Ti [...] Additional history exists Albumin/Creatinine Ratio 03/02/2025 03/02/2022, 100 02/2020 Lipid Panel 08/14/2027 08/13/2022, 100 02/2020, 12/05/2019, Additional history exists DXA Scan 10/09/2029 10/09/2022, 08/26, 12/10/2006, Additional history exists Pneumococcal Vaccine: 65+ Years Completed 05/31/2017, 08/15/2015, 05/11/2008 COVID-19 Vaccine Completed 12/18/2021, 01/2022, 06/06/2021, Additional history exists LUNG CANCER SCREENING - USE SMARTSET [id number] Completed 09/19/2022, 04/04/2022, 09/15/2020, Additional history exists [...] as of this encounter Visit Diagnoses Diagnosis Paroxysmal atrial fibrillation (HCC)- Primary Atrial fibrillation DDD (degenerative disc disease), cervical Degeneration of cervical intervertebral disc Polyarthralgia Pain in joint, multiple sites COPD, group B, by GOLD 2017 classification (HCC) Nocturnal hypoxemia Hypoxemia HTN, goal below 130/80 Unspecified essential hypertension CHALO (generalized anxiety disorder) Generalized anxiety disorder documented in this encounter Care Teams Biomedical Equipment Technician Relationship Specialty Start Date End Date Rafa Vargas MD [address] [place] [address] PCP - General Family Medicine 02/28/17 documented as of this encounter"
--- OUTSIDE RECORDS SUMMARY | 2023-01-04 12:32 | External Medical Summary | Summary of Care ---
Author Name Unknown Organization [facility] Address [address] [place] [address] Phone [phone] Care Team Providers Care Operations Supervisor 2Nd Shift Name Role Phone Rafa Vargas MD Primary Care Provider + Encounter Details Date Type Department Care Team Description 12/06/2022 Telephone Family Practice [facility] [address] [facility] [place] [address] Rafa Vargas MD [address] [place] [address] Allergies Active Allergy Reactions Severity Noted Date Comments Oxycodone 09/17/2019 hives documented as of this encounter (statuses as of 12/12/2022) Medications Medication Sig Dispensed Refills Start Date [...] Active Additional Information Patient taking differently:3 mL PuuvcrhyuE7P PRN, Reported on 07/10/2022 Calcium 600+D3 Plus [...] as of this encounter (statuses as of 12/12/2022) Active Problems Problem Noted Date Heart failure [...] discuss Declines Shingrix. 2020 CT chest sched @[facility] 08/16 TTE normal EF Gr I hammonds dys @[facility] 10/13 colon WNL fracisco 5y 10/[address] wNL fracisco 1y Feb 2016- son . 01/11 DR Ga-consider Rx/counselor camp re: of son Deviated nasal septum 06/28/2016 History of tobacco use 04/19/2015 Overview: quit 03/29/15 COPD, group B, by GOLD 2017 classificati on 01/16/2011 Dyslipidemia HTN, goal below 130/80 Left rotator cuff tear documented as of this encounter (statuses as of 12/12/2022) Resolved Problems Problem Noted Date Resolved Date [...] as of this encounter (statuses as of 12/12/2022) Immunizations Name Administration Dates Next Due COVID-19 mRNA, LNP-s, No Pre serve, 2-Dose Series ([id number]) 06/06/2021,11/28/2020,04/23/2020,07/2020 Covid-19, Mrna, Lnp-s, Pf, B ivalent, [...] PM EDT Called [facility] in [facility] to check on Nocturnal pulse [...] Telemedicine Neurology Cayden Lee MD [address] [facility] [place] [address] 12/21/2022 Imaging Radiology 01/18/2023 Office Visit Family Medicine Dinora Zelaya CRNP [address] [place] [address] Scheduled Procedures Name Priority Associated Diagnoses Date/Ti [...] 05/11/2008 LUNG CANCER SCREENING - USE SMARTSET [id number] Completed 09/19/2022, 04/04/2022, 09/15/2020, Additional history exists [...] filedocumented as of this encounter Care Teams Operations Supervisor 2Nd Shift Relationship Specialty Start Date End Date Rafa Vargas MD [address] [place] [address] PCP - General Family Medicine 02/28/17 documented as of this encounter
--- OUTSIDE RECORDS SUMMARY | 2023-01-04 12:32 | External Medical Summary | Summary of Care ---
Author Name Unknown Organization [facility] Address [address] [place] [address] Phone [phone] Care Team Providers Care Criminalist Name Role Phone Rafa Vargas MD Primary Care Provider + Reason for Visit * Reason Onset Date Comments Med Request 11/28/2022 Encounter Details Date Type Department Care Team Description 11/28/2022 Telephone Family Practice [facility] [address] [place] [address] Rafa Vargas MD [address] [place] [address] Med Request Allergies Active Allergy Reactions Severity [...] Active Additional Information Patient taking differently:3 mL IbvrwsygoY2S PRN, Reported on 07/10/2022 Calcium 600+D3 Plus [...] discuss Declines Shingrix. 2020 CT chest sched @[facility] 08/16 TTE normal EF Gr I hammonds dys @[facility] 10/13 colon WNL fracisco 5y 10/[address] wNL fracisco 1y Feb 2016- son . 01/11 DR Ga-consider Rx/mitochondrial disorders counselor re: of son Deviated nasal septum [...] mRNA, LNP-s, No Pre serve, 2-Dose Series ([employer]) 06/06/2021,11/28/2020,04/23/2020,02/0 07/2020 Covid-19, Mrna, Lnp-s, Pf, B [...] encounter Miscellaneous Notes * Telephone Encounter - Ludy Dumont RN - 11/29/2022 2:38 PM EDT Spoke with patient. See CM encounter dated 11/29/2022 * Telephone Encounter - LESLIE Ferris - 11/29/2022 2:08 PM EDT Reason for patient's call: patient calling stating that she never heard back regarding pain in her arm, leg, neck, back after her 09/06/22 OTOY messages. Pt was unable to clarify further and has already received results of labwork and xrays ordered. Pt received phone call from [facility] nurse while attempting to transfer to nurse. * Telephone Encounter - SALOMON Chin - 11/29/2022 9:16 AM EDT No labs since I saw her last and I reviewed labs with her when she saw me last. Please call patientand clarify what is going on. Venus, SHAUNA, SALOMON [facility] * Telephone Encounter - Dorota Talbert CPhT - 11/28/2022 11:53 AM EDT Pt calling [...] week already. Pt can be contacted at [phone]. Please advise. Thank you, Jessica Talbert Loan Analyst I [facility] ([facility]) (Formerly [facility]) 11/28/2022,11:56 AM documented in this encounter Plan of Treatment Upcoming Encounters Date Type Specialty Care Team Description 11/30/2022 Office Visit Family Medicine Dannielle Strickland PA-C [address] [place] [address] 12/21/2022 Imaging Radiology 01/18/2023 Office Visit Family Medicine Dinora Zelaya CRNP [address] [place] [address] Scheduled Procedures Name Priority Associated Diagnoses Date/Ti [...] 05/11/2008 LUNG CANCER SCREENING - USE SMARTSET 81630 Completed 09/19/2022, 04/04/2022, 09/15/2020, Additional history exists [...] filedocumented as of this encounter Care Teams Criminalist Relationship Specialty Start Date End Date Rafa Vargas MD [address] [place] [address] PCP - General Family Medicine 02/28/17 documented as of this encounter
--- OUTSIDE RECORDS SUMMARY | 2023-01-04 12:32 | External Medical Summary | Summary of Care ---
Author Name Unknown Organization [facility] Address [address] [place] [address] Phone [phone] Care Team Providers Care Poultry Scalder Name Role Phone Rafa Vargas MD Primary Care Provider + Reason for Visit * Reason Onset Date Comments Case Management Plan Of Care 11/29/2022 Encounter Details Date Type Department Care Team Description 11/29/2022 Broadcast Maintenance Engineer Telephone Family Practice [facility] [address] Ludy Dumont, RN [address] [place], [place] [id number] Case Management Plan Of Care Allergies Active Allergy Reactions Severity Noted Date [...] Active Additional Information Patient taking differently:3 mL VcerlrzuyB3P PRN, Reported on 07/10/2022 Calcium 600+D3 Plus [...] discuss Declines Shingrix. 2020 CT chest sched @[facility] 08/16 TTE normal EF Gr I hammonds dys @[facility] 10/13 colon WNL fracisco 5y 10/[address] wNL fracisco 1y Feb 2016- son . 01/11 DR Ga-consider Rx/high school guidance counselor re: of son Deviated nasal [...] mRNA, LNP-s, No Pre serve, 2-Dose Series ([employer]) 06/06/2021,11/28/2020,04/23/2020,02/0 07/2020 Covid-19, Mrna, Lnp-s, Pf, B [...] Encounter - Ludy Dumont RN - 11/29/2022 2:40 PM EDT CM Progress note S: Spoke with patient who states "I was ticked off that I was told about these from physical therapy and not my doctors office". She proceeded to spell out 'polymyalgia' and 'polyarthralgia'. She states when PT was awaiting an "order to work on her" this was told to her by Patricia to be the reason for her referral. Discussed that she chose to stop eliquis to take voltaren to treat her pain, she states pain is hard to describe, feels "sore" in shoulders and legs. She is finding PT beneficial. They are using massage and exercises. She states " I understand there are other medications that can beused for these conditions". was heard in background loudly exclaiming "this is bullshit" and "she needs an appointment!". Patient states "as you can tell he is more upset about this than evenI am". Also states "its hard to get ahold of anyone at [facility]". O: phone call A: patient alert, oriented, seemed confused about diagnosis listed on PT referral P: appointment made for tomorrow to discuss pain. She continues to not use eliquis and stick with voltaren. Discussed that previously Dinora Zelaya recommended if no improvement with PT a referral can be made to disaster recovery specialist. Discussed that she can reach out to case management with any further questions. Discussed phone call with Dr. Vargas, and SALOMON Heredia. documented in this encounter Plan of Treatment Upcoming Encounters Date Type Specialty Care Team Description 11/30/2022 Office Visit Family Medicine Dannielle Srtickland PA-C [address] [place] [address] 12/21/2022 Imaging Radiology 01/18/2023 Office Visit Family Dinora Gibbons CRNP [address] [place] [address] Scheduled Procedures Name Priority Associated Diagnoses Date/Ti me COLONOSCOPY FLEXIBLE PROXIMAL DIAGNOSTIC Recall History of colon polyps Health Maintenance Due Date Last Done Comments Alpha-1 Antitrypsin 1968 Zoster Vaccines (1 of 2) 2000 DTaP,Tdap,and Td Vaccines (2 - Td or Tdap) 10/16/2020 10/16/2010, 09/21/2003, 02/25/1993 Depression Screening 10/04/2022 10/04/2021 COVID-19 Vaccine (6 - season) 2022 12/18/2021, 06/06/2021, 06/06/2021, Additional [...] 05/11/2008 LUNG CANCER SCREENING - USE SMARTSET [id number] Completed 09/19/2022, 04/04/2022, 09/15/2020, Additional history exists [...] filedocumented as of this encounter Care Teams Poultry Scalder Relationship Specialty Start Date End Date Rafa Vargas MD [address] [place] [address] PCP - General Family Medicine 02/28/17 documented as of this encounter
--- OUTSIDE RECORDS SUMMARY | 2023-01-04 12:32 | External Medical Summary | Summary of Care ---
Author Name Unknown Organization [facility] Address [address] [place] [address] Phone [phone] Care Team Providers Care It Infrastructure Architect Name Role Phone Rafa Vargas MD Primary Care Provider + Reason for Visit * Reason Onset Date Comments Med Request 11/28/2022 Encounter Details Date Type Department Care Team Description 11/28/2022 Telephone Family Practice [facility] [address] [place] [address] Rafa Vargas MD [address] [place] [address] Med Request Allergies Active Allergy Reactions Severity [...] Active Additional Information Patient taking differently:3 mL BjzihcxvgY0Q PRN, Reported on 07/10/2022 Calcium 600+D3 Plus [...] Feb 2016- son . 01/11 DR Ga-consider Rx/employment counselor re: of son Deviated nasal septum [...] mRNA, LNP-s, No Pre serve, 2-Dose Series ([employer])) 06/06/2021,11/28/2020,04/23/2020,02/0 07/2020 Covid-19, Mrna, Lnp-s, Pf, B [...] encounter Miscellaneous Notes * Telephone Encounter - SALOMON Chin - 11/29/2022 9:16 AM EDT No labs since I saw her last and I reviewed labs with her when she saw me last. Please call patientand clarify what is going on. Venus, SHAUNA, SALOMON [facility] * Telephone Encounter - Dorota Talbert CPhT [...] week already. Pt can be contacted at [phone]. Please advise. Thank you, Jessica Talbert Printed Circuit Boards Router [facility] ([facility]) (Formerly [facility]) 11/28/2022,11:56 AM documented in this encounter Plan of Treatment Upcoming Encounters Date Type Specialty Care Team Description 12/21/2022 Imaging Radiology 01/18/2023 Office Visit Family Medicine Dinora Zelaya CRNP [address] [place] [address] Scheduled Procedures Name Priority Associated Diagnoses Date/Ti [...] 05/11/2008 LUNG CANCER SCREENING - USE SMARTSET 18738 Completed 09/19/2022, 04/04/2022, 09/15/2020, Additional history exists [...] filedocumented as of this encounter Care Teams It Infrastructure Architect Relationship Specialty Start Date End Date Rafa Vargas MD [address] [place] [address] PCP - General Family Medicine 02/28/17 documented as of this encounter
--- OUTSIDE RECORDS SUMMARY | 2023-01-04 12:32 | External Medical Summary | Summary of Care ---
Author Name Unknown Organization [facility] Address [address] [place] [address] Phone [phone] Care Team Providers Care Review Appraiser Name Role Phone Rafa Vargas MD Primary Care Provider + Encounter Details Date Type Department Care Team Description 12/06/2022 Telephone Family Practice [facility] [place] [address] Rafa Vargas MD [address] [place] [address] Allergies Active Allergy Reactions Severity Noted Date [...] Active Additional Information Patient taking differently:3 mL IfbdnfabcD6O PRN, Reported on 07/10/2022 Calcium 600+D3 Plus [...] 2020 CT chest sched @[facility] 08/16 TTE normal EF Gr I hammonds dys @[facility] 10/13 colon WNL fracisco 5y 10/[address] wNL fracisco 1y Feb 2016- son . 01/11 DR Ga-consider Rx/student financial services counselor re: of son Deviated nasal septum [...] mRNA, LNP-s, No Pre serve, 2-Dose Series ([employer]) 06/06/2021,11/28/2020,04/23/2020,07/2020 Covid-19, Mrna, Lnp-s, Pf, B ivalent, [...] PM EDT Called [facility] to check on Nocturnal pulse ox. Spoke [...] Telemedicine Neurology Cayden Lee MD [address] [facility] [place] [address] 12/21/2022 Imaging Radiology 01/18/2023 Office Visit Family Medicine Dinora Zelaya CRNP [address] [place] [address] Scheduled Procedures Name Priority Associated Diagnoses Date/Ti [...] 05/11/2008 LUNG CANCER SCREENING - USE SMARTSET [id number] Completed 09/19/2022, 04/04/2022, 09/15/2020, Additional history exists [...] filedocumented as of this encounter Care Teams Review Appraiser Relationship Specialty Start Date End Date Rafa Vargas MD [address] [place] [address] PCP - General Family Medicine 02/28/17 documented as of this encounter
--- OUTSIDE RECORDS SUMMARY | 2023-01-04 12:32 | External Medical Summary | Summary of Care ---
Author Name Unknown Organization [facility] Address [address] [place] [address] Phone [phone] Care Team Providers Care Bung Sewer Name Role Phone Rafa Vargas MD Primary Care Provider + Encounter Details Date Type Department Care Team Description 12/04/2022 Telephone Family Practice [facility] [place] [address] Dannielle Strickland PA-C [address] [facility] [place] [address] Allergies Active Allergy Reactions Severity Noted Date Comments Oxycodone 09/17/2019 hives documented as of this encounter (statuses as of 12/04/2022) Medications Medication Sig Dispensed Refills Start Date [...] Active Additional Information Patient taking differently:3 mL FiridchmgO5U PRN, Reported on 07/10/2022 Calcium 600+D3 Plus [...] as of this encounter (statuses as of 12/04/2022) Active Problems Problem Noted Date Heart failure [...] 2020 CT chest sched @[facility] 08/16 TTE normal EF Gr I hammonds dys @[facility] 10/13 colon WNL fracisco 5y 10/[address] wNL fracisco 1y Feb 2016- son . 01/11 DR Ga-consider Rx/genetic counsellor re: of son Deviated nasal septum 06/28/2016 History of tobacco use 04/19/2015 Overview: quit 03/29/15 COPD, group B, by GOLD 2017 classificati on 01/16/2011 Dyslipidemia HTN, goal below 130/80 Left rotator cuff tear documented as of this encounter (statuses as of 12/04/2022) Resolved Problems Problem Noted Date Resolved Date [...] as of this encounter (statuses as of 12/04/2022) Immunizations Name Administration Dates Next Due COVID-19 mRNA, LNP-s, No Pre serve, 2-Dose Series ([employer]) 06/06/2021,11/28/2020,04/23/2020,07/2020 Covid-19, Mrna, Lnp-s, Pf, B ivalent, [...] encounter Miscellaneous Notes * Telephone Encounter - Dannielle Strickland PA-C - 12/04/2022 12:25 PM EDT Error documented in this encounter Plan of Treatment Upcoming Encounters Date Type Specialty Care Team Description 12/11/2022 Telemedicine Neurology Arian Chance MD [address] [place] [address] [place] [address] Cart, Telemed Neuro [place] [address] [place] [address] 12/21/2022 Imaging Radiology 01/18/2023 Office Visit Family Medicine Dinora Zelaya CRNP [address] [place] [address] Scheduled Procedures Name Priority Associated Diagnoses Date/Ti [...] 05/11/2008 LUNG CANCER SCREENING - USE SMARTSET 16484 Completed 09/19/2022, 04/04/2022, 09/15/2020, Additional history exists [...] filedocumented as of this encounter Care Teams Bung Sewer Relationship Specialty Start Date End Date Rafa Vargas MD [address] [place] [address] PCP - General Family Medicine 02/28/17 documented as of this encounter
--- OUTSIDE RECORDS SUMMARY | 2023-01-04 12:32 | External Medical Summary | Summary of Care ---
Author Name Unknown Organization [facility] Address [address] [place] [address] Phone [phone] Care Team Providers Care Auditing Control Clerk Name Role Phone Rafa Vargas MD Primary Care Provider + Reason for Visit * Reason Onset Date Comments Med Request 11/28/2022 Encounter Details Date Type Department Care Team Description 11/28/2022 Telephone Family Practice [facility] [address] [place] [address] Rafa Vargas MD [address] [place] [address] Med Request Allergies Active Allergy Reactions Severity [...] Active Additional Information Patient taking differently:3 mL OvmsgfquwL8G PRN, Reported on 07/10/2022 Calcium 600+D3 Plus [...] discuss Declines Shingrix. 2020 CT chest sched @[facility] 08/16 TTE normal EF Gr I hammonds dys @[facility] 10/13 colon WNL fracisco 5y 10/[address] wNL fracisco 1y Feb 2016- son . 01/11 DR Ga-consider Rx/pre parole counseling aide re: of son Deviated nasal septum 06/28/2016 [...] mRNA, LNP-s, No Pre serve, 2-Dose Series ([employer]) 06/06/2021,11/28/2020,04/23/2020,02/0 07/2020 Covid-19, Mrna, Lnp-s, Pf, B [...] Notes * Telephone Encounter - Dorota Talbert [facility] - 11/28/2022 11:53 AM EDT Pt calling [...] week already. Pt can be contacted at [phone]. Please advise. Thank you, Jessica Talbert Manager Basketball I [facility] ([facility]) (Formerly [facility]) 11/28/2022,11:56 AM documented in this encounter Plan of Treatment Upcoming Encounters Date Type Specialty Care Team Description 12/21/2022 Imaging Radiology 01/18/2023 Office Visit Family Medicine Dinora Zelaya CRNP [address] [place] [address] Scheduled Procedures Name Priority Associated Diagnoses Date/Ti [...] 05/11/2008 LUNG CANCER SCREENING - USE SMARTSET 85165 Completed 09/19/2022, 04/04/2022, 09/15/2020, Additional history exists [...] filedocumented as of this encounter Care Teams Auditing Control Clerk Relationship Specialty Start Date End Date Rafa Vargas MD [address] [place] [address] PCP - General Family Medicine 02/28/17 documented as of this encounter
--- OUTSIDE RECORDS SUMMARY | 2023-01-04 12:32 | External Medical Summary | Summary of Care ---
Author Name Unknown Organization [facility] Address [address] [place] [address] Phone [phone] Care Team Providers Care Fiberglass Boat Builder Name Role Phone Rafa Vargas MD Primary Care Provider + Encounter Details Date Type Department Care Team Description 12/06/2022 Telephone Family Practice [facility] [place] [address] Rafa Vargas MD [address] [place] [address] Allergies Active Allergy Reactions Severity Noted Date Comments Oxycodone 09/17/2019 hives documented as of this encounter (statuses as of 12/11/2022) Medications Medication Sig Dispensed Refills Start Date [...] Active Additional Information Patient taking differently:3 mL NlrueshmrU2I PRN, Reported on 07/10/2022 Calcium 600+D3 Plus [...] as of this encounter (statuses as of 12/11/2022) Active Problems Problem Noted Date Heart failure [...] Declines Shingrix. 2020 CT chest sched @[facility] 08/16 TTE normal EF Gr I hammonds dys @[facility] 10/13 colon WNL fracisco 5y 10/[address] wNL fracisco 1y Feb 2016- son . 01/11 DR Ga-consider Rx/skilled nursing facility counselor re: of son Deviated nasal septum 06/28/2016 History of tobacco use 04/19/2015 Overview: quit 03/29/15 COPD, group B, by GOLD 2017 classificati on 01/16/2011 Dyslipidemia HTN, goal below 130/80 Left rotator cuff tear documented as of this encounter (statuses as of 12/11/2022) Resolved Problems Problem Noted Date Resolved Date [...] as of this encounter (statuses as of 12/11/2022) Immunizations Name Administration Dates Next Due COVID-19 mRNA, LNP-s, No Pre serve, 2-Dose Series ([employer]) 06/06/2021,11/28/2020,04/23/2020,07/2020 Covid-19, Mrna, Lnp-s, Pf, B ivalent, [...] on status. Will follow [facility] with [facility] to ensure nocturnal pule ox is done. [...] Telemedicine Neurology Cayden Lee MD [address] [facility] [place] [address] 12/21/2022 Imaging Radiology 01/18/2023 Office Visit Family Medicine Dinora Zelaya CRNP [address] [place] [address] Scheduled Procedures Name Priority Associated Diagnoses Date/Ti [...] 05/11/2008 LUNG CANCER SCREENING - USE SMARTSET [address]79 Completed 09/19/2022, 04/04/2022, 09/15/2020, Additional history exists [...] filedocumented as of this encounter Care Teams Fiberglass Boat Builder Relationship Specialty Start Date End Date Damaske, Rafa Emeterio, MD [address] [place] [address] PCP - General Family Medicine 02/28/17 documented as of this encounter
--- OUTSIDE RECORDS SUMMARY | 2023-01-04 12:32 | External Medical Summary | Summary of Care ---
Author Name Unknown Organization [facility] Address [address] [place] [address] Phone [phone] Care Team Providers Care Esol Teacher Name Role Phone Rafa Vargas MD Primary Care Provider + Reason for Referral * Evaluate & Treat - Unlimited Visits (Within 10 days (routine)) - Authorized Specialty Diagnoses / Procedures Referred By Pio jenkins Referred To Contact Neurology Diagnoses Memory changes Dannielle Strickland PA-C [address] [place] [address] Referral ID Status Reason Start Date Expiration Date Visits Requested Visits Authorized [id number] Authorized Specialty Services Required 11/30/[phone] Question Answer Referral Priority Within 10 days (routine) Where should this appointment be scheduled? [facility] RE[facility] QUESTIONS Memory/Cognition Comments Patient concerned for cognitive changes. Reason for Visit * Reason Comments Acute Pt here for complain ts of polymyalgia pain. Pt has been taking tylenol for the pain and seem to help some. Encounter Details Date Type Department Care Team Description 11/30/2022 Office Visit [facility] [address] [facility] [place] [address] Dannielle Strickland PA-C [address] [place] [address] Memory changes*; Paroxysmal atrial fibrillation (HCC); DDD (degenerative disc disease), cervical; Polyarthralgia; Polymyalgia (HCC) Allergies Active Allergy Reactions Severity Noted Date Comments Oxycodone 09/17/2019 hives documented as of this encounter (statuses as of 12/03/2022) Medications Medication Sig Dispensed Refills Start Date [...] Active Additional Information Patient taking differently:3 mL [id number] PRN, Reported on 07/10/2022 Calcium 600+D3 Plus [...] 90 Tablet 3 3 04/26/19 24 Active Albuterol Sulfate HFA 108 (90 Base) MCG/ACT Inhalation Aerosol Solution INHALE TWO PUFFS BY MOUTH EVERY 4 HOURS NEEDED FOR WHEEZING 54 g 1 3 03/21/19 24 Active Levocetirizine Dihydrochloride 5 MG Oral Tablet TAKE ONE TABLET BY MOUTH EVERY EVENING 90 Tablet 2 3 03/21/19 24 Active guaiFENesin ER 600 MG Oral Tablet Extended Release 12 Hour (Humibid LA) TAKE TWO TABLETS BY MOUTH EVERY MORNING AND TWO TABLETS BEFORE BEDTIME - TAKE WITH PLENTY OF WATER. DO NOT CUT, CRUSH OR CHEW. 360 Tablet 3 3 03/20/19 24 Active Aspirin 81 MG Oral Tablet Delayed Release Take 1 Tablet by mouth in the morning. 0 Active Losartan Potassium 50 MG Oral Tablet (Cozaar)Indications: HTN, goal below 140/90 TAKE ONE TABLET BY MOUTH EVERY DAY 90 Tablet 1 3 12/01/19 23 Discontinu ed(Medicat ion List Clean Up) Apixaban 5 MG Oral Tablet (Eliquis)Indications :Paroxysmal atrial fibrillation (HCC) TAKE ONE TABLET BY MOUTH IN THE MORNING AND ONE TABLET BEFORE BEDTIME 180 Tablet 3 3 12/01/19 23 Discontinu ed(Medicat ion List Clean Up) DULoxetine HCl 20 MG Oral Capsule Delayed Release Particles (Cymbalta) Take 1 Capsule by mouth in the morning. Do not cut, crush or chew. 30 Capsule 1 3 12/01/19 23 Discontinu ed(Medicat ion List Clean Up) documented as of this encounter (statuses as of 12/03/2022) Active Problems Problem Noted Date Heart failure [...] Declines Shingrix. 2020 CT chest sched @[facility] 08/16 TTE normal EF Gr I hammonds dys @[facility] 10/13 colon WNL fracisco 5y 10/[address] wNL fracisco 1y Feb 2016- son . 01/11 DR Ga-consider Rx/credit counselor re: of son Deviated nasal septum 06/28/2016 History of tobacco use 04/19/2015 Overview: quit 03/29/15 COPD, group B, by GOLD 2017 classificati on 01/16/2011 Dyslipidemia HTN, goal below 130/80 Left rotator cuff tear documented as of this encounter (statuses as of 12/03/2022) Resolved Problems Problem Noted Date Resolved Date [...] as of this encounter (statuses as of 12/03/2022) Immunizations Name Administration Dates Next Due COVID-19 [...] 49 Q uit: 03/29/2015 Smokeless Tobacco: Never Tobacco Cessation:Counseling Given: Not Answered Alcohol Use Standard Drinks/Week Comments Yes 0 [...] Sign Reading Time Taken Comments Blood Pressure 132/80 11/30/2022 10:13 AM EDT Pulse 70 11/30/2022 10:13 AM EDT Temperature 36.5 C (97.7 F) 11/30/2022 10:13 AM E DT Respiratory Rate 16 11/30/2022 10:13 AM EDT Oxygen Saturation 94% 11/30/2022 10:13 AM EDT Inhaled Oxygen Concentration - - Weight 80.4 kg (177 lb 3.2 oz) 11/30/2022 10:13 AM EDT Height 157.1 cm (5' 1.85") 11/30/2022 10:13 AM E DT Body Mass Index 32.57 11/30/2022 10:13 AM EDT documented in this encounter Progress Notes * Dannielle Strickland PA-C - 12/03/2022 8:27 AM EDT SUBJECTIVE: CC: Niya Escudero is a 72 year old female who presents with memory concerns. HPI: Patient here with . There primary concern with making appointment was the diagnoses used for last PT referral. The diagnosis of polymyalgia and polyarthralgia had them concerned. They don't understand what that term means and if alarming diagnosis. Pt has been doing PT for 2 months now,reports it is helping with balance, however no huge changes. She has not had a fall in >6 months. Per patient when she is walking she will just "walk into the wall". She reports just going side ways at times. No leg buckling or legs giving out. She insist she does not have pain lately. History overview: patient was hospitalized in April 2022 following syncope episode, it was determined to be caused by afib. It was recommended that patient start eliquis for CVA, TIA prevention afterpatient returned to [facility]. Patient did start anticoag, however she had to d/c Voltaren. Shortly afterstopping voltaren she had flare of joint pain- LESLIE pain. After discussion with PCP she opted to stop eliquis and restart voltaren. She is well aware of the risk of blood clots with a fib and stopping. She denies any return of a fib. She is currently not on any rate/rhythm medications. While at appt today patient also concerned that over last 2-3 months her memory is "not good". Her will report that she forgets things within 10 minutes of him telling her. Niya became upsetreflecting on this. She is very concerned that she may be developing dementia. She denies any sudden change in memory. No numbness, tingling, headaches, foot drop, facial drop, facial weakness, slurred speech, dizziness, syncope, chest pain, chest tightness, SOB, palpitations, depression, anxiety. There are no exam notes on file for this visit. ROS: See HPI for pertinent positive and negatives HISTORY: Past Medical History: Diagnosis Date Benign neoplasm [...] Date ARTHROPLASTY KNEE TOTAL Right 08/11/[address] [facility] CATARACT SURGERY,COMPLEX Left 08/2018 Dr Alexis CATARACT SURGERY,COMPLEX Right 08/2018 Dr Alexis COLONOSCOPY W/ BIOPSY (RECTUM) 08/12/2007 adenomatous, repeat in 3years COLONOSCOPY, DIAGNOSTIC (RECTUM) 06/04/2013 COLONOSCOPY FLEXIBLE PROXIMAL DIAGNOSTIC performed by Ida Staples DO at [facility] COLONOSCOPY, DIAGNOSTIC (RECTUM) 10/09/2018 diverticulosis, repeat 5 yrs/COLONOSCOPY FLEXIBLE PROXIMAL DIAGNOSTIC performed by Ida Staples DO at ENDOSCOPY [facility] COLORECTAL CANCER SCREEN; COLON 1999 normal, repeat in 2004 LIGATE/CUT OVIDUCT(S) Tubal Ligation SHOULDER ARTHROSCOPY SURGERY Left 07/11/2017 Dr Oneil rotator cuff repair TOTAL HIP REPLACEMENT & PROSTHESIS Right 03/2018 Dr Oneil Social History Tobacco Use Smoking status: Former Packs/day: 1.00 Years: 49.00 Pack years: 49.00 Types: Cigarettes Quit date: 03/29/2015 Years since quittin.6 Smokeless tobacco: Never Vaping Use Vaping Use: Never used Substance Use Topics Alcohol use: Yes Comment: occ Drug use: No Family History Problem Relation Age of Onset Lung Disorder Mother Diabetes Mother Heart Disorder Mother CABG, aortic aneurysm COPD Mother Colon cancer Father 52 Rheum arthritis Sister Lupus Sister Psoriasis Sister Diabetes Brother Obesity Brother 475# Hypertension Grandmother (Maternal) Stroke Grandmother (Maternal) Heart Disorder Grandmother (Maternal) Stroke Grandfather (Maternal) Cancer Grandmother (Paternal) live to 94 COPD Grandfather (Paternal) Neurological Disorder Son 1997. spinal tumor surg- paralysis- 03/13. Breast Cancer No significant family history Outpatient Medications Marked as Taking for the 11/30/22 encounter (Office Visit) with Dannielle Strickland PA-C Medication Sig Aspirin 81 MG Oral Tablet Delayed Release Take 1 Tablet by mouth in the morning. Qjynrnomvqq-Xjalibeua-Pkootd 200-62.5-25 MCG/ACT Aerosol Powder Breath Activated (Trelegy Ellipta) INHALE ONE PUFF BY MOUTH EVERY MORNING Gabapentin 100 MG Oral Capsule (Neurontin) TAKE ONE CAPSULE BY MOUTH EVERY DAY AT DINNER AND TWO CAPSULES ONE HOUR BEFORE BEDTIME Montelukast Sodium 10 MG Oral Tablet (Singulair) [...] TAKE ONE TABLET BY MOUTH EVERY EVENING oxygen IN GAS Use 2 L/min(Oxygen) as directed at bedtime. omeprazole (PRILOSEC) 20 MG CPDR Take 1 Capsule by mouth in the morning. 1 hour before the first meal of the day. Review of patient's allergies indicates: Allergen Reactions Oxycodone hives OBJECTIVE: BP 132/80 | Pulse 70 | Temp 36.5 C (97.7 F) | Resp 16 | Ht 1.571 m (5' 1.85") | Wt 80.4 kg (177lb 3.2 oz) | LMP 05/20/1999 | SpO2 94% | BMI 32.57 kg/m | BSA 1.87 m General appearance: awake, alert, no apparent distress, cooperative Head: Normocephalic, No masses, lesions, tenderness or abnormalities Eyes: PERRL, EOMI Neck: supple, no adenopathy, no bruits, thyroid normal size, non-tender, without nodularity Heart: regular rate & rhythm, no gallops, and no murmurs Lungs: lungs clear to auscultation and breathing non-labored EXTREMITIES: less than 2 second capillary refill, no joint deformities, effusion, or inflammation, no edema, no cyanosis, Full ROM, posterior tibial and radial pulses intact and 2+ NEURO: alert, fluent speech, no focal motor/sensory deficits, gait normal, normal rapid alternatingmovements Skin: skin color, texture, turgor are normal MME: Missed place orientation (stated we where on 2nd floor) when on 1st. (-1pt) Attention: unable to fully spell WORLD backwords (missed ROW) (- 3 pts) Naming 3 objects: Ball, wagon, shoe (missed ball, shoe) (-2pt) She was able to draw analog clock, date orientation, insight, naming, verbal commands, written commands, writing, person orientation, phrase repeating all normal. MME Score: 24 ASSESSMENT/PLAN: Memory changes (Primary) - NEUROLOGY REFERRAL OP Ask a doc also sent. Patient would like to see Neurology at this time. She did miss a few aspects on MME, however her score is borderline normal. Paroxysmal atrial fibrillation (HCC) Discussed the importance of anticoagulation based on patient [id number] score. I recommend patient restart Eliqus at this time and discontinue diclofenac. Patient declines. DDD (degenerative disc disease), cervical As above she is going to continue diclofenac. Polyarthralgia Polymyalgia (HCC) Spent 10-15 minutes in discussion with patient regarding concerns with polyarthralgia and polymyalgia diagnosis. Pt educated that these are general terms used to described multiple muscle pains and multiple joint pains. The term polymyalgia does not mean the patient has polymyalgia rheumatica, which the patient was concerned about. Patients goals for plan of care were discussed. Total time today including reviewing chart before the visit, pertinent labs, imaging reports, face to face time, and documentation time was 38 minutes. Follow up: Instructed to follow up or notify Primary Care Provider at next f/u appt scheduled. Dannielle Strickland PA-C [facility] [address] [place] [address] documented in this encounter Plan of Treatment Upcoming Encounters Date Type Specialty Care Team Description 12/21/2022 Imaging Radiology 01/18/2023 Office Visit Family Medicine Dinora Zelaya CRNP [address] [place] [address] Scheduled Procedures Name Priority Associated Diagnoses Date/Ti me COLONOSCOPY FLEXIBLE PROXIMAL DIAGNOSTIC Recall History of colon polyps Scheduled Referrals Name Type Priority Associated Diagnoses Orde r Schedule NEUROLOGY REFERRAL OP Referral Within 10 days (routine) Memory changes Ordered: 11/30/2022 Health Maintenance Due Date Last Done Comments [...] COPD 12/01/2023 11/30/2022 Albumin/Creatinine Ratio 03/02/2025 03/02/2022, 0 02/2020 Lipid Panel 08/14/2027 08/13/2022, 100 02/2020, 12/05/2019, Additional history exists DXA Scan 10/09/2029 10/09/2022, 08/26, 12/10/2006, Additional history exists Pneumococcal Vaccine: 65+ Years Completed 05/31/2017, 08/15/2015, 05/11/2008 LUNG CANCER SCREENING - USE SMARTSET 18411 Completed 09/19/2022, 04/04/2022, 09/15/2020, Additional history exists [...] of this encounter Visit Diagnoses Diagnosis Memory changes- Primary Memory loss Paroxysmal atrial fibrillation (HCC) Atrial fibrillation DDD (degenerative disc disease), cervical Degeneration of cervical intervertebral disc Polyarthralgia Pain in joint, multiple sites Polymyalgia (HCC) Polymyalgia rheumatica documented in this encounter Care Teams Esol Teacher Relationship Specialty Start Date End Date Rafa Vargas MD [address] [place] [address] PCP - General Family Medicine 02/28/17 documented as of this encounter
--- OUTSIDE RECORDS SUMMARY | 2023-01-04 12:32 | External Medical Summary | Summary of Care ---
Author Name Unknown Organization [facility] Address [address] [place] [address] Phone [phone] Care Team Providers Care Eligibility Worker Name Role Phone Rafa Vargas MD Primary Care Provider + Reason for Visit * Reason Onset Date Comments Med Request 11/28/2022 Encounter Details Date Type Department Care Team Description 11/28/2022 Telephone Family Practice [facility] [address] [place] [address] Rafa Vargas MD [address] [place] [address] Med Request Allergies Active Allergy Reactions Severity [...] Active Additional Information Patient taking differently:3 mL [id number] PRN, Reported on 07/10/2022 Calcium 600+D3 Plus [...] 2016- son . 01/11 DR Ga-consider Rx/student counselor re: of son Deviated nasal septum [...] mRNA, LNP-s, No Pre serve, 2-Dose Series ([employer]) 06/06/2021,11/28/2020,04/23/2020,02/0 07/2020 Covid-19, Mrna, Lnp-s, Pf, B [...] encounter Miscellaneous Notes * Telephone Encounter - LESLIE Ferris - 11/29/2022 2:08 PM EDT Reason for patient's call: patient calling stating that she never heard back regarding pain in her arm, leg, neck, back after her 09/06/22 PingThings messages. Pt was unable to clarify further and has already received results of labwork and xrays ordered. Pt received phone call from [facility] nurse while attempting to transfer to nurse. * Telephone Encounter - SALOMON Chin - 11/29/2022 9:16 AM EDT No labs since I saw her last and I reviewed labs with her when she saw me last. Please call patientand clarify what is going on. Venus, SHAUNA, SALOMON [facility] * Telephone Encounter - Dorota Talbert CPhT [...] week already. Pt can be contacted at [phone]. Please advise. Thank you, Jessica Talbert Academic Affairs Assistant [facility] ([facility]) 11/28/2022,11:56 AM documented in this encounter Plan of Treatment Upcoming Encounters Date Type Specialty Care Team Description 12/21/2022 Imaging Radiology 01/18/2023 Office Visit Family Medicine Dinora Zelaya CRNP [address] [facility] [place] [address] Scheduled Procedures Name Priority Associated Diagnoses Date/Ti [...] 05/11/2008 LUNG CANCER SCREENING - USE SMARTSET 24278 Completed 09/19/2022, 04/04/2022, 09/15/2020, Additional history exists [...] filedocumented as of this encounter Care Teams Eligibility Worker Relationship Specialty Start Date End Date Rafa Vargas MD [address] [place] [address] PCP - General Family Medicine 02/28/17 documented as of this encounter
--- OUTSIDE RECORDS SUMMARY | 2023-01-04 12:32 | External Medical Summary | Summary of Care ---
Author Name Unknown Organization [facility] Address [address] [place] [address] Phone [phone] Care Team Providers Care Chocolate Maker Name Role Phone Rafa Vargas MD Primary Care Provider + Reason for Visit * Reason Onset Date Comments case management 10/18/2022 Encounter Details Date Type Department Care Team Description 10/18/2022 Business Support Specialist Telephone Family Practice [facility] [address] [facility] [place] [address] Ludy Dumont, workforce management coordinator Allergies Active Allergy Reactions Severity Noted Date [...] Active Additional Information Patient taking differently:3 mL [id number] PRN, Reported on 07/10/2022 Calcium 600+D3 Plus [...] Overview: Declines Shingrix. 2020 CT chest sched @[facility] 08/16 TTE normal EF Gr I hammonds dys @[facility] 10/13 colon WNL fracisco 5y 10/[address] wNL fracisco 1y Feb 2016- son . 01/11 DR Ga-consider Rx/housing counselor re: of son Exacerbation of intermittent [...] mRNA, LNP-s, No Pre serve, 2-Dose Series ([employer]ing) 06/06/2021,11/28/2020,04/23/2020,0207/2020 Covid-19, Mrna, Lnp-s, Pf, B ivalent, [...] Telephone Encounter - Ludy Dumont RN - 10/18/2022 10:15 AM EDT CM Progress note S: met with patient at office. She reports feeling better since stopping eliquis and resuming voltaren. Pain was intolerable without oral voltaren. Gel was unhelpful. Is participating in PT, having good success. 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 Is aware of risks of being off eliquis, states "god is in control, and if its my time, it's my time". Reports having felt heart rhythm being in A fib, as far back as childhood. O: office visit A: Pleasant, alert and oriented P: Reinforce care plan as previously established. Monitor and report any CP, syncopal episodes, worsening/uncontrolled pain/falls or other concerns. Change to tier 3. documented in this encounter Plan of Treatment Upcoming Encounters Date Type Specialty Care Team Description 10/31/2022 Office Visit Cardiology Smitha Mcdermott CRNP [address] [place] [address] 12/21/2022 Imaging Radiology 01/18/2023 Office Visit Family Medicine Dinora Zelaya CRNP [address] [place] [address] Scheduled Procedures Name Priority Associated Diagnoses Date/Ti [...] exists LUNG CANCER SCREENING - USE SMARTSET 84850 Completed 09/19/2022, 04/04/2022, 09/15/2020, Additional history exists [...] filedocumented as of this encounter Care Teams Chocolate Maker Relationship Specialty Start Date End Date Rafa Vargas MD [address] [place] [address] PCP - General Family Medicine 02/28/17 documented as of this encounter
--- OUTSIDE RECORDS SUMMARY | 2023-01-04 12:33 | External Medical Summary | Summary of Care ---
Author Name Unknown Organization [facility] Address [address] [place] [address] Phone [phone] Care Team Providers Care Manager Government Name Role Phone Rafa Vargas MD Primary Care Provider + Reason for Visit * Reason Onset Date Comments Fax 09/26/2022 Clinic notes Encounter Details Date Type Department Care Team Description 09/26/2022 Telephone Family Practice [facility] [address] [facility] [place] [address] Rafa Vargas MD [address] [facility] [place] [address] Fax (Clinic notes) Allergies Active Allergy Reactions Severity Noted Date Comments Oxycodone 09/17/2019 hives documented as of this encounter (statuses as of 09/27/2022) Medications Medication Sig Dispensed Refills Start Date [...] Active Additional Information Patient taking differently:3 mL MoizxvwrbV3E PRN, Reported on 07/10/2022 Calcium 600+D3 Plus [...] or chew. 30 Capsule 1 09/06/2022 Active levoFLOXacin 750 MG Oral Tablet (Levaquin) Take 1 Tablet by mouth in the morning for 7 days. until gone.. 7 Tablet 0 09/25/2022 3 Active documented as of this encounter (statuses as of 09/27/2022) Active Problems Problem Noted Date Heart failure [...] Declines Shingrix. 2020 CT chest sched @[facility] 08/16 TTE normal EF Gr I hammonds dys @[facility] 10/13 colon WNL fracisco 5y 10/[address] wNL fracisco 1y Feb 2016- son . 01/11 DR Ga-consider Rx/employment counselor re: of son Deviated nasal septum 06/28/2016 History of tobacco use 04/19/2015 Overview: quit 03/29/15 COPD, group B, by GOLD 2017 classificati on 01/16/2011 Dyslipidemia HTN, goal below 130/80 Left rotator cuff tear documented as of this encounter (statuses as of 09/27/2022) Resolved Problems Problem Noted Date Resolved Date [...] as of this encounter (statuses as of 09/27/2022) Immunizations Name Administration Dates Next Due COVID-19 mRNA, LNP-s, No Pre serve, 2-Dose Series (Pfizer) 06/06/2021,11/28/2020,04/23/2020,07/2020 Covid-19, Mrna, Lnp-s, Pf, B ivalent, 30 Mcg, IM, 12 yrs and above (Pfizer) 12/18/2021 H1N1 2009 Influenza, IM 02/03/2009 Pneumococcal Conjugate Vacc, 13 Valent (Prevnar) 08/15/2015 Pneumococcal Polysaccharide PPV23 (Pneumovax) 05/31/2017,05/11/2008 Seasonal Influenza, Cell Cul ture, 18 Yrs & Older 12/26/2017 Seasonal Influenza, Quadriva lent Hd (Fluzone Hd) 11/10/2021,11/18/2020 Seasonal Influenza, Quadriva lent Hd, 65+ Yrs 11/30/2019 Seasonal Influenza, Quadriva lent, No Preserve, 6 Mons & Above, IM 12/03/2018,11/19/2016 Seasonal Influenza, Quadriva lent, No Preserve, IM [...] encounter Miscellaneous Notes * Telephone Encounter - JAMEL Sanchez - 09/27/2022 3:32 PM EDT I do not see a more recent study. * Telephone Encounter - LESLIE Lou - 09/27/2022 3:25 PM EDT Lisa is calling in stating that the test is from 2020 which would make it out dated they need records of a new test. Please call with any questions or concerns * Telephone Encounter - JAMEL Sanchez - 09/27/2022 11:35 AM EDT Faxed. * Telephone Encounter - LESLIE Jo - 09/26/2022 3:49 PM EDT [facility] calling because they need overnight pulse oxygen results and clinic notes faxed over to [phone]. documented in this encounter Plan of Treatment Upcoming Encounters Date Type Specialty Care Team Description 10/09/2022 Imaging Radiology 10/18/2022 Office Visit Family Medicine Dinora Zelaya CRNP [address] [place] [address] 10/31/2022 Office Visit Cardiology Smitha Mcdermott CRNP [address] [place] [address] 12/21/2022 Imaging Radiology Scheduled Procedures Name Priority Associated Diagnoses Date/Ti me COLONOSCOPY FLEXIBLE PROXIMAL DIAGNOSTIC Recall History of colon polyps Health Maintenance Due Date Last Done Comments Alpha-1 Antitrypsin 1968 Zoster Vaccines (1 of 2) 2000 DTaP,Tdap,and Td Vaccines (2 - Td or Tdap) 10/16/2020 10/16/2010, 09/21/2003, 02/25/1993 DXA Scan 09/13/2022 09/14/2015, 11/25, 12/10/2006 Depression Screening, Annual for Pts 12 and [...] 08/14/2027 08/13/2022, 02/2020, 12/05/2019, Additional history exists Pneumococcal Vaccine: 65+ Years Completed 05/31/2017, 08/15/2015, 05/11/2008 COVID-19 Vaccine Completed 12/18/2021, 01/2022, 06/06/2021, Additional history exists LUNG CANCER SCREENING - USE SMARTSET 25393 Completed 09/19/2022, 04/04/2022, 09/15/2020, Additional history exists [...] as of this encounter Care Teams Manager Government Relationship Specialty Start Date End Date Rafa Vargas MD [address] [place] [address] PCP - General Family Medicine 02/28/17 documented as of this encounter
--- OUTSIDE RECORDS SUMMARY | 2023-01-04 12:33 | External Medical Summary | Summary of Care ---
Author Name Unknown Organization [facility] Address [address] [place] [address] Phone [phone] Care Team Providers Care Tower Crane Operator Name Role Phone Rafa Pires MD Primary Care Provider + Reason for Visit * Reason Onset Date Comments Fax 09/26/2022 Clinic notes Encounter Details Date Type Department Care Team Description 09/26/2022 Telephone Family Practice [facility] [address] [facility] [place] [address] Rafa Pires MD 132 [facility] [place] [address] Fax (Clinic notes) Allergies Active Allergy Reactions Severity Noted Date Comments Oxycodone 09/17/2019 hives documented as of this encounter (statuses as of 10/11/2022) Medications Medication Sig Dispensed Refills Start Date End Date Status omeprazole (PRILOSEC) 20 MG CPDRIndications:Lucy roesophageal reflux disease, esophagitis presence not specified Take 1 Capsule by mouth in the morning. 1 hour before the first meal of the day. 30 Cap 5 06/02/2018 Active oxygen IN GAS Use 2 L/min(Oxygen) as directed at bedtime. 1 Each 0 10/26/2020 Active Ipratropium-Albutero l 0.5-2.5 (3) MG/3ML Inhalation Solution (Duoneb) Inhale 3 mL via nebulizer in the morning and 3 mL at noon and 3 mL in the evening and 3 mL before bedtime. 1080 mL 1 05/09/2022 Active Additional Information Patient taking differently:3 mL [id number] PRN, Reported on 07/10/2022 Calcium 600+D3 Plus [...] BEDTIME 90 Tablet 2 08/14/2022 4 Active Fluticasone-Umeclidi n-Vilant 200-62.5-25 MCG/ACT Aerosol Powder Breath Activated (Trelegy Ellipta) INHALE ONE PUFF BY MOUTH EVERY MORNING 180 Each 1 08/14/2022 4 Active Losartan Potassium 50 MG Oral Tablet (Cozaar)Indications: HTN, goal below 140/90 TAKE ONE TABLET BY MOUTH EVERY DAY 90 Tablet 1 08/14/2022 4 Active Apixaban 5 MG Oral Tablet (Eliquis)Indications :Paroxysmal [...] until gone.. 7 Tablet 0 09/25/2022 3 documented as of this encounter (statuses as of 10/11/2022) Active Problems Problem Noted Date Heart failure [...] Overview: Declines Shingrix. 2020 CT chest sched @[facility] 08/16 TTE normal EF Gr I hammonds dys @[facility] 10/13 colon WNL fracisco 5y 10/[address] wNL fracisco 1y Feb 2016- son . 01/11 DR Ga-consider Rx/credit support counselor re: of son Deviated nasal septum 06/28/2016 History of tobacco use 04/19/2015 Overview: quit 03/29/15 COPD, group B, by GOLD 2017 classificati on 01/16/2011 Dyslipidemia HTN, goal below 130/80 Left rotator cuff tear documented as of this encounter (statuses as of 10/11/2022) Resolved Problems Problem Noted Date Resolved Date [...] as of this encounter (statuses as of 10/11/2022) Immunizations Name Administration Dates Next Due COVID-19 [...] Miscellaneous Notes * Telephone Encounter - Lory Burfield, CONTRACT DESIGN AGENT - 10/10/2022 11:13 AM EDT Called and lmom for patient. Need to know if she received the nocturnal pulse ox from [facility] yet-if she has, did she complete it?? Once completed and results are back, we will need to fax results to [facility] for patients oxygen. Will follow up to see if patient returned call. * Telephone Encounter - LESLIE Piedra - 10/08/2022 10:52 AM EDT [facility] stating they need current testing sent over to them. Please advise. * Telephone Encounter - SLAOMON Chin - 09/27/2022 7:56 PM EDT No work arounds. Unfortunately she will have to qualify every 2 years. Venus, SHAUNA, SALOMON [facility] * Telephone Encounter - JAMEL Sanchez ASSIST - 09/27/2022 3:50 PM EDT message left for patient to call back. Order faxed to [facility]. * Addendum Note - Rafa Pires MD - 09/27/2022 3:39 PM EDTAddended by: RAFA PIRES on: 09/27/2022 03:39 PM Modules accepted: Orders * Telephone Encounter - Raaf Pires MD - 09/27/2022 3:38 PM EDT Please let pt know [facility] needs a new overnight study off oxygen to see if she still qualifies. Order signed-please fax to [facility]. Dinora--anything else needed/ work arounds? * Telephone Encounter - Cici Jaime MED ASSIST - 09/27/2022 3:32 PM EDT I do not see a more recent study. * Telephone Encounter - LESLIE Lou - 09/27/2022 3:25 PM EDT Lisa is calling in stating that the test is from 2020 which would make it out dated they need records of a new test. Please call with any questions or concerns * Telephone Encounter - Cici Jaime MED ASSIST - 09/27/2022 11:35 AM EDT Faxed. * Telephone Encounter - LESLIE Jo - 09/26/2022 3:49 PM EDT [facility] calling because they need overnight pulse oxygen results and clinic notes faxed over to [phone]. documented in this encounter Plan of Treatment Upcoming Encounters Date Type Specialty Care Team Description 10/18/2022 Office Visit Family Medicine Dinora Zelaya CRNP [address] [place] [address] 10/31/2022 Office Visit Cardiology Smitha Mcdermott CRNP [address] [place] [address] 12/21/2022 Imaging Radiology Scheduled Orders Name Type Priority Associated Diagnoses Orde r Schedule NOCTURNAL HOME OXIMETRY (OP) Procedures Routine COPD, group B, by GOLD 2017 classification ([facility]) Ordered: 09/27/2022 Scheduled Procedures Name Priority Associated Diagnoses Date/Ti [...] exists LUNG CANCER SCREENING - USE SMARTSET [id number] Completed 09/19/2022, 04/04/2022, 09/15/2020, Additional history exists [...] as of this encounter Visit Diagnoses Diagnosis COPD, group B, by GOLD 2017 classification (HCC)- Primary documented in this encounter Care Teams Tower Crane Operator Relationship Specialty Start Date End Date Rafa Pires MD [address] [place] [address] PCP - General Family Medicine 02/28/17 documented as of this encounter
--- OUTSIDE RECORDS SUMMARY | 2023-01-04 12:33 | External Medical Summary | Summary of Care ---
Author Name Unknown Organization [facility] Address [address] [place] [address] Phone [phone] Care Team Providers Care Smocking Machine Operator Name Role Phone Rafa Vargas MD Primary Care Provider + Reason for Visit * Reason Onset Date Comments Order Request 09/26/2022 Encounter Details Date Type Department Care Team Description 09/26/2022 Telephone Family Practice [facility] [place] [address] Dinora Zelaya CRNP 132 [facility] [place] [address] Order Request Allergies Active Allergy Reactions Severity Noted Date Comments Oxycodone 09/17/2019 hives documented as of this encounter (statuses as of 10/08/2022) Medications Medication Sig Dispensed Refills Start Date [...] Active Additional Information Patient taking differently:3 mL [id number] PRN, Reported on 07/10/2022 Calcium 600+D3 Plus [...] as of this encounter (statuses as of 10/08/2022) Active Problems Problem Noted Date Heart failure [...] Overview: Declines Shingrix. 2020 CT chest sched @[facility] 08/16 TTE normal EF Gr I hammonds dys @[facility] 10/13 colon WNL fracisco 5y 10/[address] wNL fracisco 1y Feb 2016- son . 01/11 DR Ga-consider Rx/children counselor re: of son Deviated nasal septum 06/28/2016 History of tobacco use 04/19/2015 Overview: quit 03/29/15 COPD, group B, by GOLD 2017 classificati on 01/16/2011 Dyslipidemia HTN, goal below 130/80 Left rotator cuff tear documented as of this encounter (statuses as of 10/08/2022) Resolved Problems Problem Noted Date Resolved Date [...] as of this encounter (statuses as of 10/08/2022) Immunizations Name Administration Dates Next Due COVID-19 [...] Miscellaneous Notes * Telephone Encounter - LESLIE Jo - 10/08/2022 10:30 AM EDT Patient has been notified of the message. Patient has no further questions. * Telephone Encounter - Cici Jaime MED ASSIST - 09/27/2022 11:54 AM EDT Faxed along with office notes. * Telephone Encounter - Shayy Geronimo aircraft worker - 09/27/2022 11:24 AM EDT As per separate telephone encounter yesterday 09/26/2022 LESLIE reports: [facility] calling because they need overnight pulse oxygen results and clinic notes faxed over to [phone]. Pt requesting this update with [facility] high priority as she states she needs her oxygen STU. Thank you, Shayy Geronimo Machine Bander And Cellophaner Helper I [facility] 09/27/2022,11:26 AM * Telephone Encounter - Lory Ngo LPN - 09/26/2022 2:12 PM EDT Faxed to [facility] * Telephone Encounter - CECIL Mistry - 09/26/2022 10:46 AM EDT [facility] [place] [facility], asking if an rx can besent to them for oxygen, phone for [facility] fax [phone]. Thank you, Rena Beltran [facility] Bill Poster Installer II [facility] ([facility] ([facility]) 09/26/2022,10:49 AM documented in this encounter Plan of Treatment Upcoming Encounters Date Type Specialty Care Team Description 10/09/2022 Imaging Radiology 10/18/2022 Office Visit Family Medicine Dinora Zelaya CRNP [address] [place] [address] 10/31/2022 Office Visit Cardiology Smitha Mcdermott CRNP [address] [place] [address] 12/21/2022 Imaging Radiology Scheduled Procedures Name Priority [...] exists LUNG CANCER SCREENING - USE SMARTSET [id number] Completed 09/19/2022, 04/04/2022, 09/15/2020, Additional history exists [...] filedocumented as of this encounter Care Teams Smocking Machine Operator Relationship Specialty Start Date End Date Rafa Vargas MD [address] [place] [address] PCP - General Family Medicine 02/28/17 documented as of this encounter
--- OUTSIDE RECORDS SUMMARY | 2023-01-04 12:33 | External Medical Summary | Summary of Care ---
Author Name Unknown Organization [facility] Address [address] [place] [address] Phone [phone] Care Team Providers Care Salesperson Burial Needs Name Role Phone Rafa Pires MD Primary Care Provider + Reason for Visit * Reason Onset Date Comments Fax 09/26/2022 Clinic notes Encounter Details Date Type Department Care Team Description 09/26/2022 Telephone Family Practice [facility] 132 [facility] [place] [address] Rafa Pires MD 132 [facility] [place] [address] Fax (Clinic notes) Allergies Active Allergy Reactions [...] Active Additional Information Patient taking differently:3 mL VfvcirlviW1N PRN, Reported on 07/10/2022 Calcium 600+D3 Plus [...] Overview: Declines Shingrix. 2020 CT chest sched @[facility] 08/16 TTE normal EF Gr I hammonds dys @[facility] 10/13 colon WNL fracisco 5y 10/[address] wNL fracisco 1y Feb 2016- son . 01/11 DR Ga-consider Rx/treatment counselor re: of son Deviated nasal septum [...] * Telephone Encounter - SALOMON Chin - 09/27/2022 7:56 PM EDT No work arounds. Unfortunately she will have to qualify every 2 years. Venus, MSN, SALOMON [facility] * Telephone Encounter - JAMEL Sanchez - 09/27/2022 3:50 PM EDT message left for patient to call back. Order faxed to [facility]. * Addendum Note - Rafa Pires MD - 09/27/2022 3:39 PM EDTAddended by: RAFA PIRES on: 09/27/2022 03:39 PM Modules accepted: Orders * Telephone Encounter - Rafa Pires MD - 09/27/2022 3:38 PM EDT Please let pt know [facility] needs a new overnight study off oxygen to see if she still qualifies. Order signed-please fax to [facility]. Farias--anything else needed/ work arounds? * Telephone Encounter - JAMEL Sanchez - [...] concerns * Telephone Encounter - JAMEL Sanchez ASSIST - 09/27/2022 11:35 AM EDT Faxed. * Telephone Encounter - LESLIE Jo - 09/26/2022 3:49 PM EDT [facility] calling because they need overnight pulse oxygen results and clinic notes faxed over to [phone]. documented in this encounter Plan of Treatment Upcoming Encounters Date Type Specialty Care Team Description 10/09/2022 Imaging Radiology 10/18/2022 Office Visit Family Medicine Dinora Zelaya CRNP [address] [place] [address] 10/31/2022 Office Visit Cardiology Smitha Mcdermott CRNP [address] [place] [address] 12/21/2022 Imaging Radiology Scheduled Orders Name Type Priority Associated Diagnoses Orde r Schedule NOCTURNAL HOME OXIMETRY (OP) Procedures Routine COPD, group B, by GOLD 2017 classification (HCC) Ordered: 09/27/2022 Scheduled Procedures Name Priority Associated [...] exists LUNG CANCER SCREENING - USE SMARTSET [id number] Completed 09/19/2022, 04/04/2022, 09/15/2020, Additional history exists [...] Primary documented in this encounter Care Teams Salesperson Burial Needs Relationship Specialty Start Date End Date Rafa Pires MD [address] [place] [address] PCP - General Family Medicine 02/28/17 documented as of this encounter
--- OUTSIDE RECORDS SUMMARY | 2023-01-04 12:33 | External Medical Summary | Summary of Care ---
Author Name Unknown Organization [facility] Address [address] [place] [address] Phone [phone] Care Team Providers Care Drafter Electrical Name Role Phone Rafa Pires MD Primary Care Provider + Reason for Visit * Reason Onset Date Comments Fax 09/26/2022 Clinic notes Encounter Details Date Type Department Care Team Description 09/26/[address] [facility] 132 [facility] [place] [address] Rafa Pires MD 132 [facility] [place] [address] Fax (Clinic notes) Allergies Active Allergy Reactions [...] Active Additional Information Patient taking differently:3 mL UjaqcniijY7B PRN, Reported on 07/10/2022 Calcium 600+D3 Plus [...] Overview: Declines Shingrix. 2020 CT chest sched @[facility] 08/16 TTE normal EF Gr I hammonds dys @[facility] 10/13 colon WNL fracisco 5y 10/[address] wNL fracisco 1y Feb 2016- son . 01/11 DR Ga-consider Rx/adoption counselor re: of son Deviated nasal septum [...] as of this encounter Miscellaneous Notes * Addendum Note - Rafa Pires MD [...] arounds? * Telephone Encounter - JAMEL Sanchez ASSIST - 09/27/2022 3:32 PM EDT I [...] results and clinic notes faxed over to [phone]. documented in this encounter Plan of Treatment Upcoming Encounters Date Type Specialty Care Team Description 10/09/2022 Imaging Radiology 10/18/2022 Office Visit Family Medicine Dinora Zelaya CRNP [address] [place] [address] 10/31/2022 Office Visit Cardiology Smitha Mcdermott CRNP [address] [place] [address] 12/21/2022 Imaging Radiology Scheduled Orders Name Type [...] 03/02/2025 03/02/2022, 02/2020 Lipid Panel 08/14/2027 08/13/2022, 10/0 02/2020, 12/05/2019, Additional history exists Pneumococcal Vaccine: 65+ Years Completed 05/31/2017, 08/15/2015, 05/11/2008 COVID-19 Vaccine Completed 12/18/2021, 01/2022, 06/06/2021, Additional history exists LUNG CANCER SCREENING - USE SMARTSET [id number] Completed 09/19/2022, 04/04/2022, 09/15/2020, Additional history exists [...] Primary documented in this encounter Care Teams Drafter Electrical Relationship Specialty Start Date End Date Rafa Pires MD [address] [place] [address] PCP - General Family Medicine 02/28/17 documented as of this encounter
--- OUTSIDE RECORDS SUMMARY | 2023-01-04 12:33 | External Medical Summary | Summary of Care ---
Author Name Unknown Organization [facility] Address [address] [place] [address] Phone [phone] Care Team Providers Care Services Engineer Name Role Phone Rafa Pires MD Primary Care Provider + Reason for Visit * Reason Onset Date Comments Fax 09/26/2022 Clinic notes Encounter Details Date Type Department Care Team Description 09/26/2022 Telephone Family Practice [facility] 132 [facility] [place] [address] Rafa Pires MD 132 [facility] [place] [address] Fax (Clinic notes) Allergies Active Allergy Reactions Severity Noted Date Comments Oxycodone 09/17/2019 hives documented as of this encounter (statuses as of 10/10/2022) Medications Medication Sig Dispensed Refills Start Date [...] Active Additional Information Patient taking differently:3 mL UhscsieduE7Q PRN, Reported on 07/10/2022 Calcium 600+D3 Plus [...] as of this encounter (statuses as of 10/10/2022) Active Problems Problem Noted Date Heart failure [...] Overview: Declines Shingrix. 2020 CT chest sched @[facility] 08/16 TTE normal EF Gr I hammonds dys @[facility] 10/13 colon WNL fracisco 5y 10/[address] wNL fracisco 1y Feb 2016- son . 01/11 DR Ga-consider Rx/drug and alcohol counselor re: of son Deviated nasal septum 06/28/2016 History of tobacco use 04/19/2015 Overview: quit 03/29/15 COPD, group B, by GOLD 2017 classificati on 01/16/2011 Dyslipidemia HTN, goal below 130/80 Left rotator cuff tear documented as of this encounter (statuses as of 10/10/2022) Resolved Problems Problem Noted Date Resolved Date [...] as of this encounter (statuses as of 10/10/2022) Immunizations Name Administration Dates Next Due COVID-19 [...] Notes * Telephone Encounter - Lory Burfield, MILK TREATER - 10/10/2022 11:13 AM EDT Called and [...] them. Please advise. * Telephone Encounter - SALOMON Chin - 09/27/2022 7:56 PM EDT No work arounds. Unfortunately she will have to qualify every 2 years. Venus, SHAUNA, SALOMON [facility] * Telephone Encounter - JAMEL Sanchez ASSIST [...] results and clinic notes faxed over to [phone]. documented in this encounter Plan of Treatment Upcoming Encounters Date Type Specialty Care Team Description 10/18/2022 Office Visit Family Medicine Dinora Zelaya CRNP [address] [place] [address] 10/31/2022 Office Visit Cardiology Smitha Mcdermott CRNP [address] [place] [address] 12/21/2022 Imaging Radiology Scheduled Orders Name Type Priority Associated Diagnoses Orde r Schedule NOCTURNAL HOME OXIMETRY (OP) Procedures Routine COPD, group B, by GOLD 2017 classification ([facility]) Ordered: 09/27/2022 Scheduled Procedures Name Priority Associated [...] exists LUNG CANCER SCREENING - USE SMARTSET [id number] Completed 09/19/2022, 04/04/2022, 09/15/2020, Additional history exists [...] Primary documented in this encounter Care Teams Services Engineer Relationship Specialty Start Date End Date Rafa Pires MD [address] [place] [address] PCP - General Family Medicine 02/28/17 documented as of this encounter
--- OUTSIDE RECORDS SUMMARY | 2023-01-04 12:33 | External Medical Summary | Summary of Care ---
Author Name Unknown Organization [facility] Address [address] [place] [address] Phone [phone] Care Team Providers Care Traffic Engineering Director Name Role Phone Rafa Pires MD Primary Care Provider + Reason for Visit * Reason Onset Date Comments Fax 09/26/2022 Clinic notes Encounter Details Date Type Department Care Team Description 09/26/2022 Telephone Family Practice [facility] [address] [facility] [place] [address] Rafa Pires MD [address] [facility] [place] [address] Fax (Clinic notes) Allergies Active Allergy Reactions [...] Active Additional Information Patient taking differently:3 mL HpryeqylgI6S PRN, Reported on 07/10/2022 Calcium 600+D3 Plus [...] Overview: Declines Shingrix. 2020 CT chest sched @[facility] 08/16 TTE normal EF Gr I hammonds dys @[facility] 10/13 colon WNL fracisco 5y 10/[address] wNL fracisco 1y Feb 2016- son . 01/11 DR Ga-consider Rx/addiction counselor re: of son Deviated nasal septum [...] LESLIE Jo - 09/26/2022 3:49 PM EDT [facility] calling because they need overnight pulse oxygen results and clinic notes faxed over to [phone]. documented in this encounter Plan of Treatment Upcoming Encounters Date Type Specialty Care Team Description 10/09/2022 Imaging Radiology 10/18/2022 Office Visit Family Medicine Dinora Zelaya CRNP [address] [place] [address] 10/31/2022 Office Visit Cardiology Smitha Mcdermott CRNP [address] [place] [address] 12/21/2022 Imaging Radiology Scheduled Orders Name Type [...] exists LUNG CANCER SCREENING - USE SMARTSET [id number] Completed 09/19/2022, 04/04/2022, 09/15/2020, Additional history exists [...] Primary documented in this encounter Care Teams Traffic Engineering Director Relationship Specialty Start Date End Date Rafa Pires MD [address] [place] [address] PCP - General Family Medicine 02/28/17 documented as of this encounter
--- OUTSIDE RECORDS SUMMARY | 2023-01-04 12:33 | External Medical Summary | Summary of Care ---
Author Name Unknown Organization [facility] Address [address] [place] [address] Phone [phone] Care Team Providers Care Accounting Professional Name Role Phone Rafa Pires MD Primary Care Provider + Reason for Visit * Reason Onset Date Comments Fax 09/26/2022 Clinic notes Encounter Details Date Type Department Care Team Description 09/26/2022 Telephone Family Practice [facility] 132 [facility] [place] [address] Rafa Pires MD 132 [facility] [place] [address] Fax (Clinic notes) Allergies Active Allergy Reactions [...] Active Additional Information Patient taking differently:3 mL IywyghgrmT5M PRN, Reported on 07/10/2022 Calcium 600+D3 Plus [...] Overview: Declines Shingrix. 2020 CT chest sched @[facility] 08/16 TTE normal EF Gr I hammonds dys @[facility] 10/13 colon WNL fracisco 5y 10/[address] wNL fracisco 1y Feb 2016- son . 01/11 DR Ga-consider Rx/assistant counsel re: of son Deviated nasal septum [...] Miscellaneous Notes * Telephone Encounter - LESLIE Piedra - 10/08/2022 10:52 AM EDT [facility] stating they need current testing sent over to them. Please advise. * Telephone Encounter - SALOMON Chin - 09/27/2022 7:56 PM EDT No work arounds. Unfortunately she will have to qualify every 2 years. Venus, MSN, SALOMON [facility] * Telephone Encounter - JAMEL Sanchez ASSIST - 09/27/2022 3:50 PM EDT message left for patient to call back. Order faxed to [facility]. * Addendum Note - Rfaa Pires MD - 09/27/2022 3:39 PM EDTAddended [...] results and clinic notes faxed over to [phone]. documented in this encounter Plan of Treatment Upcoming Encounters Date Type Specialty Care Team Description 10/09/2022 Imaging Radiology 10/18/2022 Office Visit Family Medicine Dinora Zelaya CRNP [address] [place] [address] 10/31/2022 Office Visit Cardiology Smitha Mcdermott CRNP [address] [place] [address] 12/21/2022 Imaging Radiology Scheduled Orders Name Type Priority Associated Diagnoses Orde r Schedule NOCTURNAL HOME OXIMETRY (OP) Procedures Routine COPD, group B, by GOLD 2017 classification ([facility]) Ordered: 09/27/2022 Scheduled Procedures Name Priority Associated [...] exists LUNG CANCER SCREENING - USE SMARTSET [id number] Completed 09/19/2022, 04/04/2022, 09/15/2020, Additional history exists [...] Primary documented in this encounter Care Teams Accounting Professional Relationship Specialty Start Date End Date Rafa Pires MD [address] [place] [address] PCP - General Family Medicine 02/28/17 documented as of this encounter
--- OUTSIDE RECORDS SUMMARY | 2023-01-04 12:33 | External Medical Summary | Summary of Care ---
Author Name Unknown Organization [facility] Address [address] [place] [address] Phone [phone] Care Team Providers Care Sericulturist Name Role Phone Rafa Pires MD Primary Care Provider + Reason for Visit * Reason Onset Date Comments Fax 09/26/2022 Clinic notes Encounter Details Date Type Department Care Team Description 09/26/2022 Telephone Family Practice [facility] [address] [facility] [place] [address] Rafa Pires MD [address] [facility] [place] [address] Fax (Clinic notes) Allergies Active Allergy Reactions [...] Active Additional Information Patient taking differently:3 mL XqagbnqihO6X PRN, Reported on 07/10/2022 Calcium 600+D3 Plus [...] Overview: Declines Shingrix. 2020 CT chest sched @[facility] 08/16 TTE normal EF Gr I hammonds dys @[facility] 10/13 colon WNL fracisco 5y 10/13 scree [...] Notes * Telephone Encounter - Lory Burfield, JAVA PORTAL DEVELOPER - 10/10/2022 11:13 AM EDT Called and [...] results and clinic notes faxed over to [phone]. documented in this encounter Plan of Treatment Upcoming Encounters Date Type Specialty Care Team Description 10/18/2022 Office Visit Family Medicine Dinora Zelaya CRNP [address] [place] [address] 10/31/2022 Office Visit Cardiology Smitha Mcdermott CRNP [address] [place] [address] 12/21/2022 Imaging Radiology Scheduled Orders Name Type Priority Associated Diagnoses Orde r Schedule NOCTURNAL HOME OXIMETRY (OP) Procedures Routine COPD, group B, by GOLD 2017 classification ([facility]) Ordered: 09/27/2022 Scheduled Procedures Name [...] exists LUNG CANCER SCREENING - USE SMARTSET [id number] Completed 09/19/2022, 04/04/2022, 09/15/2020, Additional history exists [...] Primary documented in this encounter Care Teams Sericulturist Relationship Specialty Start Date End Date Rafa Pires MD [address] [place] [address] PCP - General Family Medicine 02/28/17 documented as of this encounter
--- OUTSIDE RECORDS SUMMARY | 2023-01-04 12:33 | External Medical Summary | Summary of Care ---
Author Name Unknown Organization [facility] Address [address] [place] [address] Phone [phone] Care Team Providers Care Security Consultant Name Role Phone Rafa Pires MD Primary Care Provider + Reason for Visit * Reason Onset Date Comments Fax 09/26/2022 Clinic notes Encounter Details Date Type Department Care Team Description 09/26/2022 Telephone Family Practice [facility] [address] [facility] [place] [address] Rafa Pires MD 132 [facility] [place] [address] Fax (Clinic notes) Allergies Active Allergy Reactions [...] Active Additional Information Patient taking differently:3 mL JxodlkqdwF4Q PRN, Reported on 07/10/2022 Calcium 600+D3 Plus [...] Overview: Declines Shingrix. 2020 CT chest sched @[facility] 08/16 TTE normal EF Gr I hammonds dys @[facility] 10/13 colon WNL fracisco 5y 10/[address] wNL fracisco 1y Feb 2016- son . 01/11 DR Ga-consider Rx/director counseling bureau re: of son Deviated nasal septum 06/28/2016 [...] * Telephone Encounter - JAMEL Sanchez - 10/11/2022 3:15 PM EDT Order, notes and demographics re-faxed to [facility] in [place] * Telephone Encounter - Lory Ngo LPN - 10/10/2022 11:13 AM EDT Called and lmom for patient. Need to know if she received the nocturnal pulse ox from [facility] yet-if she has, did she complete it?? Once completed and results are back, we will need to fax results to [facility] for patients oxygen. Will follow up to see if patient returned call. * Telephone Encounter - LESLIE Piedra - 10/08/2022 10:52 AM EDT Danni stating they need current testing sent over to them. Please advise. * Telephone Encounter - SALOMON Chin - 09/27/2022 7:56 PM EDT No work arounds. Unfortunately she will have to qualify every 2 years. Venus, MSN, SALOMON [facility] * Telephone Encounter - JAMEL Sanhcez - 09/27/2022 3:50 PM EDT message left [...] results and clinic notes faxed over to [phone]. documented in this encounter Plan of Treatment Upcoming Encounters Date Type Specialty Care Team Description 10/18/2022 Office Visit Family Medicine Dinora Zelaya CRNP [address] [place] [address] 10/31/2022 Office Visit Cardiology Smitha Mcdermott CRNP [address] [place] [address] 12/21/2022 Imaging Radiology Scheduled Orders Name Type Priority Associated Diagnoses Orde r Schedule NOCTURNAL HOME OXIMETRY (OP) Procedures Routine COPD, group B, by GOLD 2017 classification ([facility]) Ordered: 09/27/2022 Scheduled Procedures Name [...] exists LUNG CANCER SCREENING - USE SMARTSET [id number] Completed 09/19/2022, 04/04/2022, 09/15/2020, Additional history exists [...] Primary documented in this encounter Care Teams Security Consultant Relationship Specialty Start Date End Date Rafa Pires MD [address] [place] [address] PCP - General Family Medicine 02/28/17 documented as of this encounter
--- OUTSIDE RECORDS SUMMARY | 2023-01-04 12:33 | External Medical Summary | Summary of Care ---
Author Name Unknown Organization [facility] Address [address] [place] [address] Phone [phone] Care Team Providers Care American Indian Studies Professor Name Role Phone Rafa Pires MD Primary Care Provider + Reason for Visit * Reason Onset Date Comments Fax 09/26/2022 Clinic notes Encounter Details Date Type Department Care Team Description 09/26/2022 Telephone Family Practice [facility] 132 [facility] [place] [address] Rafa Pires MD 132 [facility] [place] [address] Fax (Clinic notes) Allergies Active Allergy Reactions Severity Noted Date Comments Oxycodone 09/17/2019 hives documented as of this encounter (statuses as of 10/09/2022) Medications Medication Sig Dispensed Refills Start Date [...] Active Additional Information Patient taking differently:3 mL TieftylzrG2B PRN, Reported on 07/10/2022 Calcium 600+D3 Plus [...] as of this encounter (statuses as of 10/09/2022) Active Problems Problem Noted Date Heart failure [...] Overview: Declines Shingrix. 2020 CT chest sched @[facility] 08/16 TTE normal EF Gr I hammonds dys @[facility] 10/13 colon WNL fracisco 5y 10/[address] wNL fracisco 1y Feb 2016- son . 01/11 DR Ga-consider Rx/child and family counselor re: of son Deviated nasal septum 06/28/2016 History of tobacco use 04/19/2015 Overview: quit 03/29/15 COPD, group B, by GOLD 2017 classificati on 01/16/2011 Dyslipidemia HTN, goal below 130/80 Left rotator cuff tear documented as of this encounter (statuses as of 10/09/2022) Resolved Problems Problem Noted Date Resolved Date [...] as of this encounter (statuses as of 10/09/2022) Immunizations Name Administration Dates Next Due COVID-19 [...] qualify every 2 years. Venus, MSN, SALOMON [facility] [facility] * Telephone Encounter - JAMEL Sanchez ASSIST [...] results and clinic notes faxed over to [phone]. documented in this encounter Plan of Treatment Upcoming Encounters Date Type Specialty Care Team Description 10/18/2022 Office Visit Family Medicine Dinora Zelaya CRNP [address] [place] [address] 10/31/2022 Office Visit Cardiology Smitha Mcdermott CRNP [address] [place] [address] 12/21/2022 Imaging Radiology Scheduled Orders Name Type Priority Associated Diagnoses Orde r Schedule NOCTURNAL HOME OXIMETRY (OP) Procedures Routine COPD, group B, by GOLD 2017 classification ([facility]) Ordered: 09/27/2022 Scheduled Procedures Name Priority Associated [...] history exists LUNG CANCER SCREENING - USE [employer] 14019 Completed 09/19/2022, 04/04/2022, 09/15/2020, Additional history exists [...] Primary documented in this encounter Care Teams American Indian Studies Professor Relationship Specialty Start Date End Date Rafa Pires MD [address] [place] [address] PCP - General Family Medicine 02/28/17 documented as of this encounter
--- OUTSIDE RECORDS SUMMARY | 2023-01-04 12:34 | External Medical Summary | Summary of Care ---
Author Name Unknown Organization [facility] Address [address] [place] [address] Phone [phone] Care Team Providers Care Infrastructure Tech Name Role Phone Rafa Vargas MD Primary Care Provider + Reason for Visit * Reason Onset Date Comments Test Results 09/19/2022 Encounter Details Date Type Department Care Team Description 09/19/2022 Telephone Family Practice [facility] [address] [facility] [place] [address] [facility] [place] [address] Test Results Allergies Active Allergy Reactions Severity Noted Date Comments Oxycodone 09/17/2019 hives documented as of this encounter (statuses as of 09/24/2022) Medications Medication Sig Dispensed Refills Start Date [...] Active Additional Information Patient taking differently:3 mL KygtzsiwoL7Q PRN, Reported on 07/10/2022 Calcium 600+D3 Plus [...] as of this encounter (statuses as of 09/24/2022) Active Problems Problem Noted Date Heart failure [...] Overview: Declines Shingrix. 2020 CT chest sched @[facility] 08/16 TTE normal EF Gr I hammonds dys @[facility] 10/13 colon WNL fracisco 5y 10/[address] wNL fracisco 1y Feb 2016- son . 01/11 DR Ga-consider Rx/risk reduction counselor re: of son Deviated nasal septum 06/28/2016 History of tobacco use 04/19/2015 Overview: quit 03/29/15 COPD, group B, by GOLD 2017 classificati on 01/16/2011 Dyslipidemia HTN, goal below 130/80 Left rotator cuff tear documented as of this encounter (statuses as of 09/24/2022) Resolved Problems Problem Noted Date Resolved Date [...] as of this encounter (statuses as of 09/24/2022) Immunizations Name Administration Dates Next Due COVID-19 mRNA, LNP-s, No Pre serve, 2-Dose Series ([employer]) 06/06/2021,11/28/2020,04/23/2020,07/2020 Covid-19, Mrna, Lnp-s, Pf, B ivalent, [...] Telephone Encounter - Lory Ngo LPN - 09/24/2022 2:48 PM EDT Patient active on Xactium today. Sent message * Telephone Encounter - Joyce Morris LPN - 09/21/2022 10:27 AM EDT Left another message to have pt return call. Does she want abx? Which pharmacy? Does she have any questions? * Telephone Encounter - SALOMON Chin - 09/20/2022 1:40 PM EDT Left message on personally identified VM: regarding LDCT showing new opacities in bilateral lower lungs. This could be infection or inflammation. Recommend treatment with antibiotics. Levaquin 750 mg x 7 days. If agreeable I can send to pharmacy. Also she is having follow up CT in 3 months. Venus, MSN, SALOMON [facility] Dr. Vargas * Telephone Encounter - LESLIE Pavon - 09/19/2022 7:47 PM EDT Hello- The radiologist discovered an unexpected or indeterminate finding on Niya Escudero ([id number]) and asks that you review the following report. Study Type:CT CHEST LOW DOSE SCAN LUNG CANCER SCREEN 1 YEAR FOLLOW UP Date of Study: 09/19/2022 IMPRESSION: 1. LungRADS Category 0: Incomplete. Small amount of patchy opacities in the bilateral lower lobes, new from prior CT, likely infectious versus inflammatory. 2. LungRADS Category S: Negative, no new/unknown potentially significant incidental findings requiring additional evaluation. 3. Incidental findings as above. RECOMMENDATIONS: Follow-up CT in 1-3 months is recommended. INCOMPLETE REASON: As above. Please respond to this encounter to acknowledge receipt of this message and take responsibility to ensure this report is reviewed. Thank you, LESLIE Pavon Client Service [facility] documented in this encounter Plan of Treatment Upcoming Encounters Date Type Specialty Care Team Description 10/09/2022 Imaging Radiology 10/18/2022 Office Visit Family Medicine Dinora Zelaya CRNP [address] [place] [address] 10/31/2022 Office Visit Cardiology Smitha Mcdermott CRNP [address] [place] [address] 12/21/2022 Imaging Radiology Scheduled Procedures Name Priority [...] exists LUNG CANCER SCREENING - USE SMARTSET [id number] Completed 09/19/2022, 04/04/2022, 09/15/2020, Additional history exists [...] filedocumented as of this encounter Care Teams Infrastructure Tech Relationship Specialty Start Date End Date Rafa Vargas MD [address] [place] [address] PCP - General Family Medicine 02/28/17 documented as of this encounter
--- OUTSIDE RECORDS SUMMARY | 2023-01-04 12:34 | External Medical Summary | Summary of Care ---
Author Name Unknown Organization [facility] Address [address] [place] [address] Phone [phone] Care Team Providers Care Hob Grinder Name Role Phone Rafa Vargas MD Primary Care Provider + Reason for Visit * Reason Onset Date Comments Order Request 09/26/2022 Encounter Details Date Type Department Care Team Description 09/26/2022 Telephone Family Practice [facility] [address] [place] [address] Dinora Zelaya CRNP 132 [facility] [place] [address] Order Request Allergies Active Allergy Reactions Severity [...] Active Additional Information Patient taking differently:3 mL RxbujjgumN5N PRN, Reported on 07/10/2022 Calcium 600+D3 Plus [...] Declines Shingrix. 2020 CT chest sched @[facility] 08/16 TTE normal EF Gr I hammonds dys @[facility] 10/13 colon WNL fracisco 5y 10/[address] wNL fracisco 1y Feb 2016- son . 01/11 DR Ga-consider Rx/curriculum counselor re: of son Deviated nasal septum [...] 12 yrs and above ([employer]izer) 12/18/2021 H1N1 2008 Influenza, IM 02/03/2009 Pneumococcal Conjugate Vacc, 13 [...] encounter Miscellaneous Notes * Telephone Encounter - Cici Jaime, MED ASSIST - 09/27/2022 11:54 AM EDT Faxed along with office notes. * Telephone Encounter - CECIL Castro - 09/27/2022 11:24 AM EDT As per separate telephone encounter yesterday 09/26/2022 LESLIE reports: [facility] calling because they need overnight pulse oxygen results and clinic notes faxed over to [phone]. Pt requesting this update with [facility] high priority as she states she needs her oxygen STU. Thank you, Shayy Geronimo Hand Touch Up Painter I [facility] 09/27/2022,11:26 AM * Telephone Encounter - Lory Ngo LPN - 09/26/2022 2:12 PM EDT Faxed to [facility] * Telephone Encounter - CECIL Mistry - 09/26/2022 10:46 AM EDT [facility] [place] [facility], asking if an rx can besent to them for oxygen, phone for [facility] fax [phone]. Thank you, Rena Beltran CPhT Registered Clinical Dietitian II [facility] ([facility]) 09/26/2022,10:49 AM documented in this encounter Plan of Treatment Upcoming Encounters Date Type Specialty Care Team Description 10/09/2022 Imaging Radiology 10/18/2022 Office Visit Family Medicine Garcia, SALOMON Gandhi [address] [place] [address] 10/31/2022 Office Visit Cardiology Smitha Mcdermott CRNP [address] [place] [address] 12/21/2022 Imaging Radiology Scheduled Procedures Name Priority [...] exists LUNG CANCER SCREENING - USE SMARTSET [id number] Completed 09/19/2022, 04/04/2022, 09/15/2020, Additional history exists [...] filedocumented as of this encounter Care Teams Hob Grinder Relationship Specialty Start Date End Date Rafa Vargas MD [address] [place] [address] PCP - General Family Medicine 02/28/17 documented as of this encounter
--- OUTSIDE RECORDS SUMMARY | 2023-01-04 12:34 | External Medical Summary | Summary of Care ---
Author Name Unknown Organization [facility] Address [address] [place] [address] Phone [phone] Care Team Providers Care Audio/Video Technician Name Role Phone Rafa Vargas MD Primary Care Provider + Reason for Visit * Reason Onset Date Comments Order Request 09/26/2022 Encounter Details Date Type Department Care Team Description 09/26/2022 Telephone Family Practice [facility] [address] [place] [place] [address] Dinora Zelaya CRNP 132 [facility] [place] [address] Order Request Allergies Active Allergy Reactions Severity Noted Date Comments Oxycodone 09/17/2019 hives documented as of this encounter (statuses as of 09/26/2022) Medications Medication Sig Dispensed Refills Start Date [...] Active Additional Information Patient taking differently:3 mL JziatbjjdV7J PRN, Reported on 07/10/2022 Calcium 600+D3 Plus [...] as of this encounter (statuses as of 09/26/2022) Active Problems Problem Noted Date Heart failure [...] Feb 2016- son . 01/11 DR Ga-consider Rx/diet counselor re: of son Deviated nasal septum 06/28/2016 History of tobacco use 04/19/2015 Overview: quit 03/29/15 COPD, group B, by GOLD 2017 classificati on 01/16/2011 Dyslipidemia HTN, goal below 130/80 Left rotator cuff tear documented as of this encounter (statuses as of 09/26/2022) Resolved Problems Problem Noted Date Resolved Date [...] as of this encounter (statuses as of 09/26/2022) Immunizations Name Administration Dates Next Due COVID-19 [...] 09/26/2022 2:12 PM EDT Faxed to [facility] * Telephone Encounter - CECIL Mistry - 09/26/2022 10:46 AM EDT Pt is looking to use [facility] in [place] as new oxygen supplier, asking if an rx can besent to them for oxygen, phone for [facility] fax [phone]. Thank you, Rena Beltran CPhT Handle Bar Assembler II [facility] 09/26/2022,10:49 AM documented in this encounter Plan of Treatment Upcoming Encounters Date Type Specialty Care Team Description 10/09/2022 Imaging Radiology 10/18/2022 Office Visit Family Medicine Dinora Zelaya CRNP [address] [place] [address] 10/31/2022 Office Visit Cardiology Smitha Mcdermott CRNP [address] [place] [address] 12/21/2022 Imaging Radiology Scheduled Procedures Name Priority [...] exists LUNG CANCER SCREENING - USE SMARTSET [id number] Completed 09/19/2022, 04/04/2022, 09/15/2020, Additional history exists [...] filedocumented as of this encounter Care Teams Audio/Video Technician Relationship Specialty Start Date End Date Rafa Vargas MD [address] [place] [address] PCP - General Family Medicine 02/28/17 documented as of this encounter
--- OUTSIDE RECORDS SUMMARY | 2023-01-04 12:34 | External Medical Summary | Summary of Care ---
Author Name Unknown Organization [facility] Address [address] [place] [address] Phone [phone] Care Team Providers Care Timber Cruiser Name Role Phone Rafa Vargas MD Primary Care Provider + Reason for Visit * Reason Onset Date Comments Fax 09/26/2022 Clinic notes Encounter Details Date Type Department Care Team Description 09/26/2022 Telephone Family Practice [facility] 132 [facility] [place] [address] Rafa Vargas MD 132 [facility] [place] [address] Fax (Clinic notes) Allergies Active Allergy Reactions [...] Active Additional Information Patient taking differently:3 mL QoaijpijxC7L PRN, Reported on 07/10/2022 Calcium 600+D3 Plus [...] 2016- son . 01/11 DR Ga-consider Rx/auto [employer] travel counselor re: of son Deviated nasal [...] Miscellaneous Notes * Telephone Encounter - LESLIE Lou - [...] results and clinic notes faxed over to [phone]. documented in this encounter Plan of Treatment Upcoming Encounters Date Type Specialty Care Team Description 10/09/2022 Imaging Radiology 10/18/2022 Office Visit Family Medicine Dinora Zelaya CRNP [address] [place] [address] 10/31/2022 Office Visit Cardiology Smitha Mcdermott CRNP [address] [place] [address] 12/21/2022 Imaging Radiology Scheduled Procedures Name Priority [...] exists LUNG CANCER SCREENING - USE SMARTSET [id number] Completed 09/19/2022, 04/04/2022, 09/15/2020, Additional history exists [...] filedocumented as of this encounter Care Teams Timber Cruiser Relationship Specialty Start Date End Date Rafa Vargas MD [address] [place] [address] PCP - General Family Medicine 02/28/17 documented as of this encounter
--- OUTSIDE RECORDS SUMMARY | 2023-01-04 12:34 | External Medical Summary | Summary of Care ---
Author Name Unknown Organization [facility] Address [address] [place] [address] Phone [phone] Care Team Providers Care Public Transportation Inspector Name Role Phone Raaf Vargas MD Primary Care Provider + Reason for Visit * Reason Onset Date Comments Test Results 09/19/2022 Encounter Details Date Type Department Care Team Description 09/19/2022 Telephone Family Practice [facility] [address] [facility] [place] [address] [facility]fin [facility] [place] [address] Test Results Allergies Active Allergy Reactions Severity Noted Date Comments Oxycodone 09/17/2019 hives documented as of this encounter (statuses as of 09/25/2022) Medications Medication Sig Dispensed Refills Start Date [...] Active Additional Information Patient taking differently:3 mL LoeqhemdnH6J PRN, Reported on 07/10/2022 Calcium 600+D3 Plus [...] as of this encounter (statuses as of 09/25/2022) Active Problems Problem Noted Date Heart failure [...] Overview: Declines Shingrix. 2020 CT chest sched @[facility] 08/16 TTE normal EF Gr I hammonds dys @[facility] 10/13 colon WNL fracisco 5y 10/[address] wNL fracisco 1y Feb 2016- son . 01/11 DR Ga-consider Rx/career development counselor re: of son Deviated nasal septum 06/28/2016 History of tobacco use 04/19/2015 Overview: quit 03/29/15 COPD, group B, by GOLD 2017 classificati on 01/16/2011 Dyslipidemia HTN, goal below 130/80 Left rotator cuff tear documented as of this encounter (statuses as of 09/25/2022) Resolved Problems Problem Noted Date Resolved Date [...] as of this encounter (statuses as of 09/25/2022) Immunizations Name Administration Dates Next Due COVID-19 [...] encounter Miscellaneous Notes * Addendum Note - SALOMON Chin - 09/25/2022 9:08 AM EDTAddended by: DINORA MORFIN on: 09/25/2022 09:08 AM Modules accepted: Orders * Telephone Encounter - Lory Ngo LPN - 09/24/2022 2:48 PM EDT Patient active on MyG today. Sent message * Telephone Encounter - [...] CT in 3 months. Venus, MSN, SALOMON [facility] FY Dr. Vargas * Telephone Encounter - LESLIE Pavon - 09/19/2022 7:47 PM EDT Hello- The radiologist discovered an unexpected or indeterminate finding on Niya Escudero ([id number]) and asks that you review the following [...] reviewed. Thank you, LESLIE Pavon Client Service Rep [facility] documented in this encounter Plan of Treatment Upcoming Encounters Date Type Specialty Care Team Description 10/09/2022 Imaging Radiology 10/18/2022 Office Visit Family Medicine Dinora Morfin CRNP [address] [place] [address] 10/31/2022 Office Visit Cardiology Smitha Mcdermott CRNP [address] [place] [address] 12/21/2022 Imaging Radiology Scheduled Procedures Name Priority [...] exists LUNG CANCER SCREENING - USE SMARTSET [id number] Completed 09/19/2022, 04/04/2022, 09/15/2020, Additional history exists [...] filedocumented as of this encounter Care Teams Public Transportation Inspector Relationship Specialty Start Date End Date Rafa Vargas MD [address] [place] [address] PCP - General Family Medicine 02/28/17 documented as of this encounter
--- OUTSIDE RECORDS SUMMARY | 2023-01-04 12:34 | External Medical Summary | Summary of Care ---
Author Name Unknown Organization [facility] Address [address] [place] [address] Phone [phone] Care Team Providers Care Diet Supervisor Name Role Phone Rafa Vargas MD Primary Care Provider + Reason for Visit * Reason Onset Date Comments Fax 09/26/2022 Clinic notes Encounter Details Date Type Department Care Team Description 09/26/2022 Telephone Family Practice [facility] [address] [facility] [place] [address] Rafa Vargas MD [address] [facility] [place] [address] Fax (Clinic notes) Allergies Active Allergy Reactions [...] Active Additional Information Patient taking differently:3 mL TcjydjzzaI9A PRN, Reported on 07/10/2022 Calcium 600+D3 Plus [...] Overview: Declines Shingrix. 2020 CT chest sched @[facility] 08/16 TTE normal EF Gr I hammonds dys @[facility] 10/13 colon WNL fracisco 5y 10/[address] wNL fracisco 1y Feb 2016- son . 01/11 DR Ga-consider Rx/staff counsel re: of son Deviated nasal septum [...] Miscellaneous Notes * Telephone Encounter - Cici Jaime MED ASSIST - 09/27/2022 11:35 AM EDT Faxed. * Telephone Encounter - LESLIE Jo - 09/26/2022 3:49 PM EDT [facility] calling because they need overnight pulse oxygen results and clinic notes faxed over to [phone]. documented in this encounter Plan of Treatment Upcoming Encounters Date Type Specialty Care Team Description 10/09/2022 Imaging Radiology 10/18/2022 Office Visit Family Medicine Dinora Zelaya CRNP [address] [place] [address] 10/31/2022 Office Visit Cardiology Smitha Mcdermott CRNP [address] [place] [address] 12/21/2022 Imaging Radiology Scheduled Procedures Name Priority [...] exists LUNG CANCER SCREENING - USE SMARTSET 63790 Completed 09/19/2022, 04/04/2022, 09/15/2020, Additional history exists [...] filedocumented as of this encounter Care Teams Diet Supervisor Relationship Specialty Start Date End Date Rafa Vargas MD [address] [place] [address] PCP - General Family Medicine 02/28/17 documented as of this encounter
--- OUTSIDE RECORDS SUMMARY | 2023-01-04 12:34 | External Medical Summary | Summary of Care ---
Author Name Unknown Organization [facility] Address [address] [place] [address] Phone [phone] Care Team Providers Care Ship'S Surveyor Name Role Phone Rafa Vargas MD Primary Care Provider + Reason for Visit * Reason Onset Date Comments Test Results 09/24/2022 Incidental findi ngs Encounter Details Date Type Department Care Team Description 09/24/2022 Telephone Family Practice [facility] [address] [place] [address] Rafa Vargas MD [address] [place] [address] Test Results (Incidental findings) Allergies Active Allergy Reactions Severity Noted Date [...] Active Additional Information Patient taking differently:3 mL [id number] PRN, Reported on 07/10/2022 Calcium 600+D3 Plus [...] Overview: Declines Shingrix. 2020 CT chest sched @[facility] 08/16 TTE normal EF Gr I hammonds dys @[facility] 10/13 colon WNL fracisco 5y 10/[address] wNL fracisco 1y Feb 2016- son . 01/11 DR Ga-consider Rx/family and marriage counsellor re: of son Deviated nasal septum [...] mRNA, LNP-s, No Pre serve, 2-Dose Series ([employer]) 06/06/2021,11/28/2020,04/23/2020,07/2020 Covid-19, Mrna, Lnp-s, Pf, B ivalent, [...] encounter Miscellaneous Notes * Telephone Encounter - Raeann Juarez LPN - 09/24/2022 11:10 AM EDT [facility] Incidental Findings Summary for PCP to Review Dr Rafa Vargas MD - [facility] is managing your patient's pulmonary nodule (setting and tracking thecare plans). However, your patient also has an incidental finding on their recent scan that [facility] does NOT manage. Please review the LDCT dated 09/19/22 and follow through with evaluation of the other incidental finding(s) as listed on radiology report as clinically indicated. JUDY Echeverria (System to Track Abnormalities of Importance Reliably) [phone] CT CHEST LOW DOSE SCAN LUNG CANCER SCREEN 1 YEAR FOLLOW UP 09/19/2022 Narrative EXAM: CT CHEST LOW DOSE SCAN LUNG CANCER SCREEN 1 YEAR FOLLOW UP - 09/19/2022 9:58 am HISTORY: Lung Cancer Screening TECHNIQUE: Noncontrast low-dose CT (LDCT) chest per standard departmental protocol COMPARISON: CT chest 04/04/2022. FINDINGS: Lung Screening Specific (LungRADS): Small amount of patchy opacities in the bilateral lower lobes, new from prior CT, likely infectiousversus inflammatory. A 1.0 cm ground-glass opacity in the right lower lobe, unchanged. Potentially Significant Incidentals (LungRADS Category S): None. Pulmonary incidentals: Emphysema. Other Incidentals: Coronary artery calcification. Small hiatal hernia, unchanged. Moderate bilateral shoulder joint arthrosis. Mild degenerative changes of the visualized spine. Impression IMPRESSION: 1. LungRADS Category 0: Incomplete. Small amount of patchy opacities in the bilateral lower lobes, new from prior CT, likely infectious versus inflammatory. 2. LungRADS Category S: Negative, no new/unknown potentially significant incidental findings requiring additional evaluation. 3. Incidental findings as above. RECOMMENDATIONS: Follow-up CT in 1-3 months is recommended. INCOMPLETE REASON: As above. This case was sent to the HIGHBALLER/AGUSTIN (radiology front office java developer) at time of dictation. documented in this encounter Plan of Treatment Upcoming Encounters Date Type Specialty Care Team Description 10/09/2022 Imaging Radiology 10/18/2022 Office Visit Family Medicine Dinora Zelaya CRNP [address] [place] [address] 10/31/2022 Office Visit Cardiology Smitha Mcdermott CRNP [address] [place] [address] 12/21/2022 Imaging Radiology Scheduled Procedures Name Priority [...] 11/18/2020, Additional history exists GFR 03/02/2023 03/02/2022, 1002/2020, 12/05/2019, Additional history exists Mammogram 08/01/2023 07/31/2022, [...] exists LUNG CANCER SCREENING - USE SMARTSET 10638 Completed 09/19/2022, 04/04/2022, 09/15/2020, Additional history exists [...] filedocumented as of this encounter Care Teams Ship'S Surveyor Relationship Specialty Start Date End Date Rafa Vargas MD [address] [place] [address] PCP - General Family Medicine 02/28/17 documented as of this encounter
--- OUTSIDE RECORDS SUMMARY | 2023-01-04 12:34 | External Medical Summary | Summary of Care ---
Author Name Unknown Organization [facility] Address [address] [place] [address] Phone [phone] Care Team Providers Care Network Support Analyst Name Role Phone Rafa Vargas MD Primary Care Provider + Reason for Visit * Reason Onset Date Comments Order Request 09/26/2022 Encounter Details Date Type Department Care Team Description 09/26/2022 Telephone Family Practice [facility] [address] [place] [address] Dinora Zelaya CRNP [address] [facility] [place] [address] Order Request Allergies Active Allergy Reactions Severity [...] Active Additional Information Patient taking differently:3 mL FzjwttvenX4Y PRN, Reported on 07/10/2022 Calcium 600+D3 Plus [...] Overview: Declines Shingrix. 2020 CT chest sched @[facility] 08/16 TTE normal EF Gr I hammonds dys @[facility] 10/13 colon WNL fracisco 5y 10/[address] wNL fracisco 1y Feb 2016- son . 01/11 DR Ga-consider Rx/counselling psychologist re: of son Deviated nasal septum 06/28/2016 [...] encounter Miscellaneous Notes * Telephone Encounter - Shayy A Fonzo, cold press loader - 09/27/2022 11:24 AM EDT As per separate telephone encounter yesterday 09/26/2022 LESLIE reports: [facility] calling because they need overnight pulse oxygen results and clinic notes faxed over to [phone]. Pt requesting this update with [facility] high priority as she states she needs her oxygen STU. Thank you, Shayy Geronimo Script Coordinator [facility] 09/27/2022,11:26 AM * Telephone Encounter - Lory Ngo LPN - 09/26/2022 2:12 PM EDT Faxed to [facility] * Telephone Encounter - CECIL Mistry - 09/26/2022 10:46 AM EDT Pt is looking to use [facility] in [place] as new oxygen supplier, asking if an rx can besent to them for oxygen, phone for [facility] fax [phone]. Thank you, Rena Beltran CPhT Film Sound Engineer [facility] ([facility] ([facility]) 09/26/2022,10:49 AM documented in this encounter Plan of Treatment Upcoming Encounters Date Type Specialty Care Team Description 10/09/2022 Imaging Radiology 10/18/2022 Office Visit Family Medicine Dinora Zelaya CRNP [address] [place] [address] 10/31/2022 Office Visit Cardiology Smitha Mcdermott CRNP [address] [place] [address] 12/21/2022 Imaging Radiology Scheduled Procedures Name Priority [...] exists LUNG CANCER SCREENING - USE SMARTSET 17162 Completed 09/19/2022, 04/04/2022, 09/15/2020, Additional history exists [...] filedocumented as of this encounter Care Teams Network Support Analyst Relationship Specialty Start Date End Date Rafa Vargas MD [address] [place] [address] PCP - General Family Medicine 02/28/17 documented as of this encounter
--- OUTSIDE RECORDS SUMMARY | 2023-01-04 12:34 | External Medical Summary | Summary of Care ---
Author Name Unknown Organization [facility] Address [address] [place] [address] Phone [phone] Care Team Providers Care Boat Fueler Name Role Phone Rafa Vargas MD Primary Care Provider + Reason for Visit * Reason Onset Date Comments Test Results 09/24/2022 Incidental findi ngs Encounter Details Date Type Department Care Team Description 09/24/2022 Telephone Family Practice [facility] [address] [place] [address] Rafa [...] Active Additional Information Patient taking differently:3 mL VnonejtclB2P PRN, Reported on 07/10/2022 Calcium 600+D3 Plus [...] Shingrix. 2020 CT chest sched @[facility] 08/16 TTE normal EF Gr I hammonds dys @[facility] 10/13 colon WNL fracisco 5y 10/[address] wNL fracisco 1y Feb 2016- son . 01/11 DR Ga-consider Rx/relocation counselor re: of son Deviated nasal septum [...] mRNA, LNP-s, No Pre serve, 2-Dose Series ([employer]) 06/06/2021,11/28/2020,04/23/2020,07/2020 Covid-19, Mrna, Lnp-s, Pf, B ivalent, [...] Telephone Encounter - Rafa Vargas MD - 09/24/2022 10:01 PM EDT Noted. levaquin Rx was given 09/20. * Telephone Encounter - Raeann Juarez LPN [...] (System to Track Abnormalities of Importance Reliably) [phone] CT CHEST LOW DOSE SCAN LUNG CANCER [...] above. This case was sent to the HOSPICE/HOME HEALTH AIDE/AGUSTIN (radiology office machines sales representative) at time of dictation. documented in this encounter Plan of Treatment Upcoming Encounters Date Type Specialty Care Team Description 10/09/2022 Imaging Radiology 10/18/2022 Office Visit Family Medicine Dinora Zelaya CRNP [address] [place] [address] 10/31/2022 Office Visit Cardiology Smitha Mcdermott CRNP [address] [place] [address] 12/21/2022 Imaging Radiology Scheduled Procedures Name Priority [...] exists LUNG CANCER SCREENING - USE SMARTSET 18765 Completed 09/19/2022, 04/04/2022, 09/15/2020, Additional history exists [...] filedocumented as of this encounter Care Teams Boat Fueler Relationship Specialty Start Date End Date Rafa Vargas MD [address] [place] [address] PCP - General Family Medicine 02/28/17 documented as of this encounter
--- OUTSIDE RECORDS SUMMARY | 2023-01-04 12:35 | External Medical Summary | Summary of Care ---
Author Name Unknown Organization [facility] Address [address] [place] [address] Phone [phone] Care Team Providers Care Human Services Supervisor Name Role Phone Rafa Vargas MD Primary Care Provider + Reason for Referral * Precert (Within 10 days (routine)) - Pending Review Specialty Diagnoses / Procedures Referred By Pio jenkins Referred To Contact Radiology Diagnoses Other nonspecific abnormal finding of lung field Ground glass opacity present on imaging of lung Procedures CT CHEST WO CONTRAST Link Natarajan, SIVAN [address] [place] [address] Referral ID Status Reason Start Date Expiration Date V isits Requested Visits Authorized [id number] Pending Review 12/21/2022 999 999 * Evaluate & Treat - Unlimited Visits (Within 3 days (urgent)) - Authorized Specialty Diagnoses / Procedures Referred By Contblake t Referred To Contact Pulmonary Diseases / Pulmonary Diagnoses Other nonspecific abnormal finding of lung field Kaushal Freeman MD [address] [place] [address] Referral ID Status Reason Start Date Expiration Date Visits Requested Visits Authorized [id number] Authorized Specialty Services Required 09/20/2022 999 999 Question Answer Referral Priority Within 3 Days (Urgent) Primary Reason for Referral? Lung Nodule/Mass Comments Rads 0 - Infection vs Inflammation. [facility] * Reason Onset Date Comments STAIR Lung Nodule 09/20/2022 This is RADS 0 . Infection vs. Inflammatory Encounter Details Date Type Department Care Team Description 09/20/2022 Telephone STAIR LUNG NODULE [address] [place] [address] Program, Stair [address] [place] [address] STAIR Lung Nodule (This is RADS 0. Infecti... Allergies Active Allergy Reactions Severity Noted Date [...] Active Additional Information Patient taking differently:3 mL LgmffambnI4U PRN, Reported on 07/10/2022 Calcium 600+D3 Plus [...] Overview: Declines Shingrix. 2020 CT chest sched @[facility] 08/16 TTE normal EF Gr I hammonds dys @[facility] 10/13 colon WNL fracisco 5y 10/[address] wNL fracisco 1y Feb 2016- son . 01/11 DR Ga-consider Rx/clinical counselor re: of son Deviated nasal septum [...] mRNA, LNP-s, No Pre serve, 2-Dose Series ([employer]) 06/06/2021,11/28/2020,04/23/2020,07/2020 Covid-19, Mrna, Lnp-s, Pf, B ivalent, 30 Mcg, IM, 12 yrs and above ([employer]) 12/18/2021 H1N1 2009 Influenza, IM 02/03/2009 Pneumococcal [...] encounter Miscellaneous Notes * Telephone Encounter - Irais Mcmahon LPN - 09/24/2022 11:09 AM EDT Rafa Vargas MD - for your review. An important pulmonary nodule finding was noted. The follow-up Care Plan is [address] Chest. The STAIR Team will manage this lung nodule and take careof any ordering/scheduling. Lung Nodule Referral Triaging - Communication to Patient Patient contacted, recommendations reviewed, patient agrees, appointments scheduled/coordinated. CTChest scheduled 12/21/22. Zhane Time spent: 10 minutes Irais Mcmahon LPN Coordinator STAIR (System to Track Abnormalities of Importance Reliably) [phone] * Telephone Encounter - Irais Mcmahon LPN - 09/24/2022 11:03 AM EDT Left message for return call * Addendum Note - Link Natarajan DNP - 09/20/2022 12:05 PM EDTAddended by: LINK NATARAJAN on: 09/20/2022 12:05 PM Modules accepted: Orders * Telephone Encounter - Link Natarajan DNP - 09/20/2022 11:42 AM EDT Lung Nodule Provider Review - Initial Clinical Summary: 72 yo male, not followed in pulmonary. Former smoker, quit 2016 49PY. Reviewed below Imaging Interpretation: LDCT dated 09/19/22 Lung nodules: Multiple Small amount of patchy opacities in the bilateral lower lobes, new from prior CT, likely infectiousversus inflammatory. A 1.0 cm ground-glass opacity in the right lower lobe, unchanged Location: As noted Characteristics: As noted Co-morbidity : findings of emphysema 1. Pulmonary Nodule Care Plan: Lung RADs Follow-up Imaging ordered ("CT Chest Lung Cancer Screen 3 or 6 Month Follow Up") Details: [address] suggeted 2. Non-Pulmonary Nodule Incidental Finding: none 3. Patient contacted to review recommendations and next steps: Yes, important pulmonary nodule finding discussed, LMOM with details and contact # 4. Message forwarded to STAIR Pool. Time spent: 20 minutes SALOMON Frost (System to Track Abnormalities of Importance Reliably) * Telephone Encounter - Sharon Fountain LPN - 09/20/2022 11:17 AM EDT Lung Cancer Screening Program ([facility]) Results Call Summary 09/20/2022 Phoned and results reviewed. Smoking cessation in 2016. (+) CTs from OSH (recent admission @ [facility]). Questions/Concerns answered. Low Dose CT Lung-RADS Scoring: Lung-RADS Score 0 (suggestive of an inflammatory or infectious process) - care transferred to [facility] for clinical review, setting care plan, and tracking. (STAIR Team: Patient identified by Lung Cancer Screening Program. If CT Scan needed, order CT Chest Lung Cancer Screen 3 or 6 Month Follow Up.) I have contacted the patient to review the low dose CT results, discuss next steps per Lung Cancer Screening Program Protocol, and address any questions. Sharon Fountain LPN Lung Cancer Screening Apartment House Manager [phone] ([phone]) * Telephone Encounter - Sharon Fountain LPN - 09/20/2022 9:34 AM EDT Lung Cancer Screening Program ([facility]) Results Call Summary 09/20/2022 Phoned to discuss test results. No answer. LVM. Await return call. Sharon Fountain LPN Lung Cancer Screening Apartment House Manager [phone] ([phone]) documented in this encounter Plan of Treatment Upcoming Encounters Date Type Specialty Care Team Description 10/09/2022 Imaging Radiology 10/18/2022 Office Visit Family Medicine Dinora Zelaya CRNP [address] [facility] [place] [address] 10/31/2022 Office Visit Cardiology Smitha Mcdermott CRNP [address] [place] [address] 12/21/2022 Imaging Radiology Scheduled Orders Name Type Priority Associated Diagnoses Orde r Schedule CT CHEST WO CONTRAST Medical Imaging Routine Other nonspecific abnormal finding of lung field Ground glass opacity present on imaging of lung Expected: 12/21/2022, Expires: 10/22/2023 Scheduled Procedures Name Priority Associated Diagnoses Date/Ti me COLONOSCOPY FLEXIBLE PROXIMAL DIAGNOSTIC Recall History of colon polyps Scheduled Referrals Name Type Priority Associated Diagnoses Orde r Schedule STAIR LUNG NODULE REFERRAL OP (SYSTEM FOR TRACKING ABNORMALITIES OF IMPORTANCE RELIABLY) Referral Within 3 days (urgent) Other nonspecific abnormal finding of lung field Ordered: 09/20/2022 Health Maintenance Due Date Last Done Comments [...] 03/02/2025 03/02/2022, 02/2020 Lipid Panel 08/14/2027 08/13/2022, 2021, 12/05/2019, Additional history exists Pneumococcal Vaccine: 65+ Years Completed 05/31/2017, 08/15/2015, 05/11/2008 COVID-19 Vaccine Completed 12/18/2021, 01/2022, 06/06/2021, Additional history exists LUNG CANCER SCREENING - USE SMARTSET 22874 Completed 09/19/2022, 04/04/2022, 09/15/2020, Additional history exists [...] as of this encounter Visit Diagnoses Diagnosis Other nonspecific abnormal finding of lung field- Primary Ground glass opacity present on imaging of lung documented in this encounter Care Teams Human Services Supervisor Relationship Specialty Start Date End Date Rafa Vargas MD [address] [place] [address] PCP - General Family Medicine 02/28/17 documented as of this encounter
--- OUTSIDE RECORDS SUMMARY | 2023-01-04 12:35 | External Medical Summary | Summary of Care ---
Author Name Unknown Organization [facility] Address [address] [place] [address] Phone [phone] Care Team Providers Care Manager Marketing Communication Name Role Phone Rafa Vargas MD Primary Care Provider + Reason for Referral * Evaluate & Treat - Unlimited Visits (Within 3 days (urgent)) - Authorized Specialty Diagnoses / Procedures Referred By Contac t Referred To Contact Pulmonary Diseases / Pulmonary Diagnoses Other nonspecific abnormal finding of lung field Kaushal Freeman MD [address] [place] [address] Referral ID Status Reason Start Date Expiration Date Visits Requested Visits Authorized [id number] Authorized Specialty Services Required 09/20/2022 999 999 Question Answer Referral Priority Within 3 Days (Urgent) Primary Reason for Referral? Lung Nodule/Mass Comments Rads 0 - Infection vs Inflammation. Recent admission at [facility] Reason for Visit * Reason Onset Date Comments STAIR Lung Nodule 09/20/2022 This is RADS 0 . Infection vs. Inflammatory Encounter Details Date Type Department Care Team Description 09/20/2022 Telephone STAIR LUNG NODULE [address] [place] [address] Program, Stair [address] [place] [address] STAIR Lung Nodule (This is RADS 0. Infecti... Allergies Active Allergy Reactions Severity Noted Date Comments Oxycodone 09/17/2019 hives documented as of this encounter (statuses as of 09/20/2022) Medications Medication Sig Dispensed Refills Start Date [...] Active Additional Information Patient taking differently:3 mL [id number] PRN, Reported on 07/10/2022 Calcium 600+D3 Plus [...] as of this encounter (statuses as of 09/20/2022) Active Problems Problem Noted Date Heart failure [...] Overview: Declines Shingrix. 2020 CT chest sched @[facility] 08/16 TTE normal EF Gr I hammonds dys @[facility] 10/13 colon WNL fracisco 5y 10/[address] wNL fracisco 1y Feb 2016- son . 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 Smoking cessation in 2016. (+) CTs from OSH (recent admission @ [facility]). Questions/Concerns answered. Low Dose CT Lung-RADS Scoring: Lung-RADS Score 0 (suggestive of an inflammatory or infectious process) - care transferred to [facility] for clinical review, setting care plan, and [...] questions. Sharon Fountain LPN Lung Cancer Screening Cement Mixer [phone] ([phone]) * Telephone Encounter - Sharon Fountain LPN - 09/20/2022 9:34 AM EDT Lung Cancer Screening Program ([facility]SP) Results Call Summary 09/20/2022 Phoned to discuss test results. No answer. LVM. Await return call. Sharon Fountain LPN Lung Cancer Screening Cement Mixer [phone] ([phone]) documented in this encounter Plan of Treatment Upcoming Encounters Date Type Specialty Care Team Description 10/09/2022 Imaging Radiology 10/18/2022 Office Visit Family Medicine Garcia, SALOMON Gandhi [address] [place] [address] 10/31/2022 Office Visit Cardiology Smitha Mcdermott CRNP [address] [place] [address] Scheduled Procedures Name Priority Associated Diagnoses Date/Ti [...] exists LUNG CANCER SCREENING - USE SMARTSET 65192 Completed 09/19/2022, 04/04/2022, 09/15/2020, Additional history exists [...] nonspecific abnormal finding of lung field- Primary documented in this encounter Care Teams Manager Marketing Communication Relationship Specialty Start Date End Date Rafa Vargas MD [address] [place] [address] PCP - General Family Medicine 02/28/17 documented as of this encounter
--- OUTSIDE RECORDS SUMMARY | 2023-01-04 12:35 | External Medical Summary | Summary of Care ---
Author Name Unknown Organization [facility] Address [address] [place] [address] Phone [phone] Care Team Providers Care Professor Of Theater Name Role Phone Rafa Vargas MD Primary Care Provider + Reason for Visit * Reason Comments Outpatient Testing Encounter Details Date Type Department Care Team Description 09/07/2022 Laboratory Laboratory, [place] [address] [place] [id number] [place] [address], [place] [id number] Polyarthralgia; Polymyalgia (HCC) Allergies Active Allergy Reactions Severity Noted Date Comments Oxycodone 09/17/2019 hives documented as of this encounter (statuses as of 09/07/2022) Medications Medication Sig Dispensed Refills Start Date [...] Active Additional Information Patient taking differently:3 mL [id number] PRN, Reported on 07/10/2022 Calcium 600+D3 Plus [...] as of this encounter (statuses as of 09/07/2022) Active Problems Problem Noted Date Heart failure [...] Feb 2016- son . 01/11 DR Ga-consider Rx/baby counselor re: of son Deviated nasal septum 06/28/2016 History of tobacco use 04/19/2015 Overview: quit 03/29/15 COPD, group B, by GOLD 2017 classificati on 01/16/2011 Dyslipidemia HTN, goal below 130/80 Left rotator cuff tear documented as of this encounter (statuses as of 09/07/2022) Resolved Problems Problem Noted Date Resolved Date [...] as of this encounter (statuses as of 09/07/2022) Immunizations Name Administration Dates Next Due COVID-19 mRNA, LNP-s, No Pre serve, 2-Dose Series ([place] [employer]) 06/06/2021,11/28/2020,04/23/2020,07/2020 Covid-19, Mrna, Lnp-s, Pf, B ivalent, [...] Encounters Date Type Specialty Care Team Description 09/19/2022 Imaging Radiology 10/09/2022 Imaging Radiology 10/18/2022 Office Visit Family Medicine Dinora Zelaya CRNP [address] [place] [address] 10/31/2022 Office Visit Cardiology Smitha Mcdermott CRNP [address] [place] [address] Pending Results Name Type Priority Associated Diagnoses Date /Time FERRITIN Lab Routine Polyarthralgia 09/07/2022 8:10 AM EDT CK Lab Routine Polymyalgia (HCC) 09/07/2022 8:10 AM EDT Scheduled Procedures Name Priority Associated Diagnoses Date/Ti [...] exists LUNG CANCER SCREENING - USE SMARTSET 22045 Completed 04/04/2022, 09/15/2020, 10/16/2019, Additional history exists GARDASIL-HPV IMMUNIZATION SERIES Aged [...] as of this encounter Visit Diagnoses Diagnosis Polyarthralgia Pain in joint, multiple sites Polymyalgia (HCC) Polymyalgia rheumatica documented in this encounter Care Teams Professor Of Theater Relationship Specialty Start Date End Date Rafa Vargas MD [address] [place] [address] PCP - General Family Medicine 02/28/17 documented as of this encounter
--- OUTSIDE RECORDS SUMMARY | 2023-01-04 12:35 | External Medical Summary ---
Author Name Unknown Address Unknown Organization K01:[facility] - [address] [place] [address] Laboratory Report Ordering Provider Test Date Status SHELBIE HOUSTON 09/07/2022 08:10:55 Final Observation Date Value Abnormality Reference (Units ) Status CK 09/07/2022 08:10:55 54 [id number] (U/ L) Final Performing Location [facility] - [address] [place] [address]
--- OUTSIDE RECORDS SUMMARY | 2023-01-04 12:35 | External Medical Summary | Summary of Care ---
Author Name Unknown Organization [facility] Address [address] [place] [address] Phone [phone] Care Team Providers Care Truck Driver Supervisor Name Role Phone Rafa Vargas MD Primary Care Provider + Reason for Referral * Evaluate & Treat - Unlimited Visits (Within 10 days (routine)) - Authorized Specialty Diagnoses / Procedures Referred By Pio jenkins Referred To Contact Physical Therapy / Physical Medicine And Rehab Diagnoses Polymyalgia (HCC) Polyarthralgia [facility]ora Zelaya CR[facility] [address] [facility] [address] Referral ID Status Reason Start Date Expiration Date Visits Requested Visits Authorized [id number] Authorized Specialty Services Required 09/06/2022 999 999 Question Answer Referral Priority Within 10 days (routine) Reason for Visit * Reason Comments Re-Check 6 month Encounter Details Date Type Department Care Team Description 09/06/2022 Office Visit Family [facility] [address] [place] [address] Dinora Zelaya CRNP [address] [facility] [address] Bilateral arm pain*; Polymyalgia ([facility]); Polyarthralgia; Paroxysmal atrial fibrillation ([facility]); Heart failure, unspecified HF chronicity, unspecified heart failure type ([facility]); COPD, group B, by GOLD 2017 classification ([facility]) Allergies Active Allergy Reactions Severity Noted Date Comments Oxycodone 09/17/2019 hives documented as of this encounter (statuses as of 09/06/2022) Medications Medication Sig Dispensed Refills Start Date [...] Active Additional Information Patient taking differently:3 mL [id number] PRN, Reported on 07/10/2022 Calcium 600+D3 Plus [...] as of this encounter (statuses as of 09/06/2022) Active Problems Problem Noted Date Heart failure [...] Overview: Declines Shingrix. 2020 CT chest sched @[facility] 08/16 TTE normal EF Gr I hammonds dys @[facility] 10/13 colon WNL fracisco 5y 10/[address] wNL fracisco 1y Feb 2016- son . 01/11 DR Ga-consider Rx/pediatric genetic counselor re: of son Deviated nasal septum 06/28/2016 History of tobacco use 04/19/2015 Overview: quit 03/29/15 COPD, group B, by GOLD 2017 classificati on 01/16/2011 Dyslipidemia HTN, goal below 130/80 Left rotator cuff tear documented as of this encounter (statuses as of 09/06/2022) Resolved Problems Problem Noted Date Resolved Date [...] as of this encounter (statuses as of 09/06/2022) Immunizations Name Administration Dates Next Due COVID-19 [...] Sign Reading Time Taken Comments Blood Pressure 122/78 09/06/2022 9:37 AM EDT Pulse 96 09/06/2022 9:37 AM EDT Temperature - - Respiratory Rate - - Oxygen Saturation 94% 09/06/2022 9:37 AM EDT Inhaled Oxygen Concentration - - Weight 80.9 kg (178 lb 4.8 oz) 09/06/2022 9:37 A M EDT Height - - Body Mass Index 31.84 03/09/2022 9:44 AM EST documented in this encounter Progress Notes * SALOMON Chin - 09/06/2022 10:03 AM EDT Follow up Family Medicine Visit CC: Chief Complaint Patient presents with Re-Check 6 month History of Present Illness: Niya Escudero is a 72 year old female presenting for 6 month follow up. She is having diffuse joint pain and myalgia. Worse since last visit. There is some weakness. Denies numbness and tingling. There is also soreness in the thighs every day. This has been present stopping volatren. She stopped voltaren orally due to eliquis Rx. She feels voltaren gel does not help. Gabapentin is for RLS. Auto immune workup negative Lyme testing has been negative. ESR- 39 CRP-6 Feels lungs are stable. No recent flares. 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 Comment: [employer] Tobacco Use Smoking status: Former Packs/day: 1.00 Years: 49.00 Pack years: 49.00 Types: Cigarettes Quit date: 03/29/2015 Years since quittin.4 Smokeless tobacco: Never Vaping Use Vaping Use: Never used Substance and Sexual Activity Alcohol use: Yes Comment: occ Drug use: No Sexual activity: Never Comment: [id number]. 3 sons (2alive) 7 grandkids. Other Topics Concern Not on file Social History Narrative Grandkids spread out. Still subs at work. Has puppy Valentina 2019 Social Determinants of Health Financial Resource Strain: Not on file Food Insecurity: No Food Insecurity Worried About Running Out of Food in the Last Year: Never true Ran Out of Food in the Last Year: Never true Transportation Needs: Not on file Physical Activity: [...] ARTHROPLASTY KNEE TOTAL Right 08/11/2021 Dr Smith [facility] CATARACT SURGERY,COMPLEX Left 08/2018 Dr Alexis CATARACT SURGERY,COMPLEX Right 08/2018 Dr Alexis COLONOSCOPY W/ BIOPSY (RECTUM) 08/12/2007 adenomatous, repeat in 3years COLONOSCOPY, DIAGNOSTIC (RECTUM) 06/04/2013 COLONOSCOPY FLEXIBLE PROXIMAL DIAGNOSTIC performed by Ida Staples DO at END[facility]COPY [facility] COLONOSCOPY, DIAGNOSTIC (RECTUM) 10/09/2018 diverticulosis, repeat 5 yrs/COLONOSCOPY FLEXIBLE PROXIMAL DIAGNOSTIC performed by Ida Staples DO at END[facility]COPY [facility] COLORECTAL CANCER SCREEN; COLON 1999 normal, repeat in 2004 LIGATE/CUT OVIDUCT(S) Tubal Ligation SHOULDER ARTHROSCOPY SURGERY Left 07/11/2017 Dr Smith rotator cuff repair TOTAL HIP REPLACEMENT & PROSTHESIS Right 03/2018 Dr Smith Outpatient Medications Marked as Taking for the 09/06/22 encounter (Office Visit) with Dinora SALOMON Henao Medication Sig Ejighayxckp-Jwzxippjk-Kmzjvl 200-62.5-25 MCG/ACT Aerosol Powder Breath Activated (Trelegy [...] TAKE ONE TABLET BY MOUTH AT BEDTIME Apixaban 5 MG Oral Tablet (Eliquis) TAKE ONE TABLET BY MOUTH IN THE MORNING AND ONE TABLET BEFORE BEDTIME Calcium 600+D3 Plus Minerals 600-800 MG-UNIT Oral Tablet Take by mouth daily. Ipratropium-Albuterol 0.5-2.5 (3) MG/3ML Inhalation Solution (Duoneb) Inhale 3 mL via nebulizerin the morning and 3 mL at noon [...] COVID-19 mRNA, LNP-s, No Preserve, 2-Dose Series ([employer]) 06/06/2021 Covid-19, Mrna, Lnp-s, Pf, Bivalent, 30 Mcg, IM, 12 yrs and above (Pfizer) 12/18/2021 H1N1 2009 Influenza, IM 02/03/2009 Pneumococcal Conjugate Vacc, 13 Valent (Prevnar) 08/15/2015 Pneumococcal Polysaccharide PPV23 (Pneumovax) 05/31/2017 Seasonal Influenza, Cell Culture, 18 Yrs & Older 12/26/2017 Seasonal Influenza, Quadrivalent Hd (Fluzone Hd) 11/10/2021 Seasonal Influenza, Quadrivalent Hd, 65+ Yrs 11/30/2019 Seasonal Influenza, Quadrivalent, No Preserve, 6 Mons & Above, IM 12/03/2018 Seasonal Influenza, Quadrivalent, No Preserve, IM 11/16/2015 Seasonal Influenza, Split, IIV3, With Preserve, Inj 11/23/2014 TD - Tetanus/Diptheria (ADULT) 09/21/2003 TDAP (age 11 and older)(Adacel) 10/16/2010 Review of Systems: Review of Systems Constitutional: Positive for fatigue. Negative for chills and diaphoresis. Respiratory: Negative for cough, shortness of breath and wheezing. Cardiovascular: Negative for chest pain, palpitations and leg swelling. Gastrointestinal: Negative for abdominal pain, blood in stool, nausea and vomiting. Neurological: Negative for dizziness and syncope. Psychiatric/Behavioral: Positive for dysphoric mood. Negative for sleep disturbance. The patient isnervous/anxious. Physical Exam: BP 122/78 | Pulse 96 | Wt 80.9 kg (178 lb 4.8 oz) | LMP 05/20/1999 | SpO2 94% | BMI 31.84 kg/m | BSA 1.89 m Physical Exam HENT: Head: Normocephalic. Eyes: Pupils: Pupils are equal, round, and reactive to light. Cardiovascular: Rate and Rhythm: Normal rate and regular rhythm. Pulmonary: Effort: Pulmonary effort is normal. Breath sounds: Normal breath sounds. Abdominal: General: Bowel sounds are normal. Palpations: Abdomen is soft. Tenderness: There is no abdominal tenderness. Musculoskeletal: General: Normal range of motion. Cervical back: Normal range of motion. Neurological: General: No focal deficit present. Mental Status: She is alert and oriented to person, place, and time. Psychiatric: Behavior: Behavior normal. Thought Content: Thought content normal. Judgment: Judgment normal. Assessment and Plan: 1. Bilateral arm pain Ongoing for years Check neck x ray ? Cervical radicular pain Adding cymbalta Med use and precautions - XR C SPINE 4-5 VIEWS 2. Polymyalgia (HCC) Ongoing for years Check CK Adding cymbalta - PHYSICAL THERAPY REFERRAL OP 3. Polyarthralgia Multiple joints but worse in the upper extremities - FERRITIN; Future - PHYSICAL THERAPY REFERRAL OP 4. Paroxysmal atrial fibrillation (HCC) nsr TODAY ON ELIQUIS RATE STABLE 5. Heart failure, unspecified HF chronicity, unspecified heart failure type (HCC) sTABLE 6. COPD, group B, by GOLD 2017 classification (HCC) STABLE I have advised the patient to call our office incase of any worsening or new symptoms. I spent a total of 40-54 minutes (exact time 57 mins) on the date of service in preparation, delivery, and documentation of the care provided to Niya Escudero excluding any time spent inthe performance of separately billed services. Venus, SHAUNA, SALOMON [facility] * SALOMON Morales Student - 09/06/2022 9:47 AM EDT S: Pt is a 72 year old female presenting to clinic with for c/o ^ pain since her voltarin was stooped when started on Eliquis. She reports diffuse joint and muscle pain throughout. Pt has a h/o afib, COPD, high cholesterol, and hypertension. Takes albuterol, apixaban, trelegy, gabapentin, levocetirizine, losartan potassium, singular, calcium, duo nebs, omeprazole and 02 at HS. Does not drink or smoke. Allergies: oxycodone Review of Systems Constitutional: Positive for fatigue. Negative for appetite change and fever. Respiratory: Negative for chest tightness and shortness of breath. Cardiovascular: Negative for chest pain, palpitations and leg swelling. Gastrointestinal: Negative for abdominal pain, diarrhea, nausea and vomiting. Genitourinary: Negative for difficulty urinating. Musculoskeletal: Positive for arthralgias, back pain and myalgias. Neurological: Positive for weakness. Negative for dizziness and headaches. Psychiatric/Behavioral: Positive for sleep disturbance. Physical Exam Constitutional: Appearance: Normal appearance. HENT: Head: Normocephalic and atraumatic. Cardiovascular: Rate and Rhythm: Normal rate and regular rhythm. Heart sounds: Normal heart sounds. Pulmonary: Effort: Pulmonary effort is normal. Abdominal: General: Abdomen is flat. Bowel sounds are normal. There is no distension. Palpations: Abdomen is soft. Tenderness: There is no abdominal tenderness. There is no guarding. Musculoskeletal: General: Tenderness present. Cervical back: Rigidity and tenderness present. Neurological: Mental Status: She is alert. Reports her arms and hands bother her most. Reports the pain does wake her up from sleep. Describesas an achy pain, has tried voltaren gel without relief, reports activity increases pain. A: Generalized pain P: Work up for RA, lymes was negative. Started Cymbalta, PT referral completed, ordered labs and xray. Office to call patient with results. F/u in 6 weeks sooner if needed. documented in this encounter Nursing Notes * Jana Lagos LPN - 09/06/2022 9:35 AM EDT The patient has been properly identified by confirmation of name and date of . Chief Complaint Patient presents with Re-Check 6 month Pt states she was placed on the blood thinner (Eliquis), was told to d/c her arthritis medication. Pt is in a lot of pain, using tylenol. Pain with movement. Pt interested in getting a medication To prevent blood clots/stroke but also able to treat the arthritis. documented in this encounter Plan of Treatment Upcoming Encounters Date Type Specialty Care Team Description 09/19/2022 Imaging Radiology 10/09/2022 Imaging Radiology 10/18/2022 Office Visit Family Medicine Dinora Zelaya CRNP [address] [place] [address] 10/31/2022 Office Visit Cardiology Smitha Mcdermott, SALOMON [address] [place] [address] Pending Results Name Type Priority Associated Diagnoses Date /Time XR C SPINE 4-5 VIEWS Medical Imaging Routine Bilateral arm pain 09/06/2022 11:01 AM EDT Scheduled Orders Name Type Priority Associated Diagnoses Orde r Schedule FERRITIN Lab Routine Polyarthralgia Expected: 09/06/2022 (Approximate), Expires: 09/06/2023 CK Lab Routine Polymyalgia (HCC) Expected: 09/06/2022 (Approximate), Expires: 09/06/2023 Scheduled Procedures Name Priority Associated Diagnoses Date/Ti me COLONOSCOPY FLEXIBLE PROXIMAL DIAGNOSTIC Recall History of colon polyps Scheduled Referrals Name Type Priority Associated Diagnoses Orde r Schedule PHYSICAL THERAPY REFERRAL OP Referral Within 10 days (routine) Polymyalgia (HCC) Polyarthralgia Ordered: 09/06/2022 Health Maintenance Due Date Last Done Comments [...] 03/02/2023 03/02/2022, 02/2020, 12/05/2019, Additional history exists O2 ASSESSMENT COMPLETED IN PAST YEAR FOR COPD 07/11/2023 07/10/2022 Mammogram 08/01/2023 07/31/2022, 04/2021, 08/04/2020, Additional history exists COLONOSCOPY-EVERY 5 YRS AGES 18-100 10/10/2023 10/09/2018, 10/09/2018, 06/04/2013, Additional history exists Albumin/Creatinine Ratio 03/02/2025 03/02/2022, 0 02/2020 Lipid Panel 08/14/2027 08/13/2022, 0 02/2020, 12/05/2019, Additional history exists Pneumococcal Vaccine: 65+ Years Completed 05/31/2017, 08/15/2015, 05/11/2008 COVID-19 Vaccine Completed 12/18/2021, 01/2022, 06/06/2021, Additional history exists LUNG CANCER SCREENING - USE SMARTSET 33558 Completed 04/04/2022, 09/15/2020, 10/16/2019, Additional history exists [...] as of this encounter Visit Diagnoses Diagnosis Bilateral arm pain- Primary Pain in limb Polymyalgia (HCC) Polymyalgia rheumatica Polyarthralgia Pain in joint, multiple sites Paroxysmal atrial fibrillation (HCC) Atrial fibrillation Heart failure, unspecified HF chronicity, unspecified heart failure type (HCC) COPD, group B, by GOLD 2017 classification (HCC) documented in this encounter Care Teams Truck Driver Supervisor Relationship Specialty Start Date End Date Rafa Vargas MD [address] [place] [address] PCP - General Family Medicine 02/28/17 documented as of this encounter"
--- OUTSIDE RECORDS SUMMARY | 2023-01-04 12:35 | External Medical Summary | Summary of Care ---
Author Name Unknown Organization [facility] Address [address] [place] [address] Phone [phone] Care Team Providers Care Auto Customize Painter Name Role Phone Rafa Vargas MD Primary Care Provider + Reason for Referral * Evaluate & Treat - Unlimited Visits (Within 3 days (urgent)) - Authorized Specialty Diagnoses / Procedures Referred By Contac t Referred To Contact Pulmonary Diseases / Pulmonary Diagnoses Other nonspecific abnormal finding of lung field Kaushal Freeman MD [address] [place] [address] Referral ID Status Reason Start Date Expiration Date Visits Requested Visits Authorized [id number] Authorized Specialty Services Required 09/20/2022 999 999 Question Answer Referral Priority Within 3 Days (Urgent) Primary Reason for Referral? Lung Nodule/Mass Comments Rads 0 - Infection vs Inflammation. Recent admission at [facility] Reason for Visit * Reason Onset Date Comments STAIR Lung Nodule 09/20/2022 This is RADS 0 . Infection vs. Inflammatory Encounter Details Date Type Department Care Team Description 09/20/2022 Telephone STAIR LUNG NODULE [address] [place] [address] Program, Stair [address] [place] [address] STAIR Lung Nodule (This is RADS 0. [...] Active Additional Information Patient taking differently:3 mL [id number] PRN, Reported on 07/10/2022 Calcium 600+D3 Plus [...] son . 01/11 DR Ga-consider Rx/high school counselor re: of son Deviated nasal septum [...] or infectious process) - care transferred to [facility] for clinical review, setting care plan, and [...] questions. Sharon Fountain LPN Lung Cancer Screening Pasteurizer [phone] ([phone]) * Telephone Encounter - Sharon Fountain LPN - 09/20/2022 9:34 AM EDT Lung Cancer Screening Program ([facility]) Results Call Summary 09/20/2022 Phoned to discuss test results. No answer. LVM. Await return call. Sharon Fountain LPN Lung Cancer Screening Pasteurizer [phone] ([phone]) documented in this encounter Plan of Treatment Upcoming Encounters Date Type Specialty Care Team Description 10/09/2022 Imaging Radiology 10/18/2022 Office Visit Family Medicine Garcia, SALOMON Gandhi [address] [place] [address] 10/31/2022 Office Visit Cardiology Smitha Mcdermott CRNP [address] [place] [address] Scheduled Procedures Name Priority Associated Diagnoses Date/Ti [...] exists LUNG CANCER SCREENING - USE SMARTSET 25768 Completed 09/19/2022, 04/04/2022, 09/15/2020, Additional history exists [...] Primary documented in this encounter Care Teams Auto Customize Painter Relationship Specialty Start Date End Date Rafa Vargas MD [address] [place] [address] PCP - General Family Medicine 02/28/17 documented as of this encounter
--- OUTSIDE RECORDS SUMMARY | 2023-01-04 12:35 | External Medical Summary | Summary of Care ---
Author Name Unknown Organization [facility] Address [address] [place] [address] Phone [phone] Care Team Providers Care Dictaphone Mechanic Name Role Phone Rafa Vargas MD Primary Care Provider + Reason for Referral * Precert (Within 10 days (routine)) - Pending Review Specialty Diagnoses / Procedures Referred By Pio jenkins Referred To Contact Radiology Diagnoses Other nonspecific abnormal finding of lung field Ground glass opacity present on imaging of lung Procedures CT CHEST WO CONTRAST Link Natarajan, SIVAN [address] [place] [address] Referral ID Status Reason Start Date Expiration Date V isits Requested Visits Authorized [id number] Pending Review 12/21/2022 999 999 * Evaluate & Treat - Unlimited Visits (Within 3 days (urgent)) - Authorized Specialty Diagnoses / Procedures Referred By Contblake t Referred To Contact Pulmonary Diseases / Pulmonary Diagnoses Other nonspecific abnormal finding of lung field Kaushal Freeman MD [address] [place] [address] Referral ID Status Reason Start Date Expiration Date Visits Requested Visits Authorized [id number] Authorized Specialty Services Required 09/20/2022 999 999 Question Answer Referral Priority Within 3 Days (Urgent) Primary Reason for Referral? Lung Nodule/Mass Comments Rads 0 - Infection vs Inflammation. [facility] * Reason Onset Date Comments STAIR Lung Nodule 09/20/2022 This is RADS 0 . Infection vs. Inflammatory Encounter Details Date Type Department Care Team Description 09/20/2022 Telephone STAIR LUNG NODULE [address] [place] [address] Program, Stair [address] [place] [address] STAIR Lung Nodule (This is RADS 0. [...] Active Additional Information Patient taking differently:3 mL ZuqydwybrH2L PRN, Reported on 07/10/2022 Calcium 600+D3 Plus [...] Feb 2016- son . 01/11 DR Ga-consider Rx/primary counselor re: of son Deviated nasal septum [...] mRNA, LNP-s, No Pre serve, 2-Dose Series ([employer] [place]) 06/06/2021,11/28/2020,04/23/2020,07/2020 Covid-19, Mrna, Lnp-s, Pf, B ivalent, 30 Mcg, IM, 12 yrs and above ([employer] [place]) 12/18/2021 H1N1 2009 Influenza, IM 02/03/2009 Pneumococcal [...] encounter Miscellaneous Notes * Addendum Note - Link Natarajan DNP - 09/20/2022 12:05 PM EDTAddended by: LINK NATARAJAN on: 09/20/2022 12:05 PM Modules accepted: Orders * Telephone Encounter - Link Natarajan DNP - 09/20/2022 11:42 AM EDT Lung Nodule Provider Review - Initial Clinical Summary: 72 yo male, not followed in pulmonary. Former smoker, quit 2015 49PY. Reviewed below Imaging Interpretation: LDCT dated [...] or infectious process) - care transferred to [facility] for clinical review, setting care plan, and [...] questions. Sharon Fountain LPN Lung Cancer Screening Toll Mechanic [phone] ([id number]) * Telephone Encounter - Sharon Fountain LPN - 09/20/2022 9:34 AM EDT Lung Cancer Screening Program ([facility]) Results Call Summary 09/20/2022 Phoned to discuss test results. No answer. LVM. Await return call. Sharon Fountain LPN Lung Cancer Screening Toll Mechanic [phone] ([id number]) documented in this encounter Plan of Treatment Upcoming Encounters Date Type Specialty Care Team Description 10/09/2022 Imaging Radiology 10/18/2022 Office Visit Family Medicine Dinora Zelaya CRNP [address] [place] [address] 10/31/2022 Office Visit Cardiology Smitha Mcdermott CRNP [address] [place] [address] Scheduled Orders Name Type Priority Associated Diagnoses [...] exists LUNG CANCER SCREENING - USE SMARTSET 35584 Completed 09/19/2022, 04/04/2022, 09/15/2020, Additional history exists [...] lung documented in this encounter Care Teams Dictaphone Mechanic Relationship Specialty Start Date End Date Rafa Vargas MD [address] [place] [address] PCP - General Family Medicine 02/28/17 documented as of this encounter
--- OUTSIDE RECORDS SUMMARY | 2023-01-04 12:35 | External Medical Summary ---
Author Name Unknown Address Unknown Organization K01:LABORATORY [facility] [place] - [address] [facility] [address] Laboratory Report Ordering Provider Test Date Status SHELBIE HOUSTON 09/07/2022 08:10:55 Final Observation Date Value Abnormality Reference (Units ) Status Ferritin 09/07/2022 08:10:55 112 13-150 (ng /mL) Final Postmenopausal women have hi gher ferritin levels than pre-menopausal women. The above reference interval is based on pre-menopausal women. Performing Location LABORATORY [facility] - [address] [place] [address]
--- OUTSIDE RECORDS SUMMARY | 2023-01-04 12:35 | External Medical Summary | Summary of Care ---
Author Name Unknown Organization [facility] Address [address] [place] [address] Phone [phone] Care Team Providers Care Water Meter Installer Name Role Phone Rafa Vargas MD Primary Care Provider + Reason for Referral * Precert (Within 10 days (routine)) - Pending Review Specialty Diagnoses / Procedures Referred By Pio jenkins Referred To Contact Radiology Diagnoses Other nonspecific abnormal finding of lung field Ground glass opacity present on imaging of lung Procedures CT CHEST WO CONTRAST Link Natarajan, SIVAN [address] [place] [address] Referral ID Status Reason Start Date Expiration Date V isits Requested Visits Authorized [id number] Pending Review 12/21/2022 999 999 * Evaluate & Treat - Unlimited Visits (Within 3 days (urgent)) - Authorized Specialty Diagnoses / Procedures Referred By Contblake t Referred To Contact Pulmonary Diseases / Pulmonary Diagnoses Other nonspecific abnormal finding of lung field Kaushal Freeman MD [address] [place] [address] Referral ID Status Reason Start Date Expiration Date Visits Requested Visits Authorized [id number] Authorized Specialty Services Required 09/20/2022 999 999 Question Answer Referral Priority Within 3 Days (Urgent) Primary Reason for Referral? Lung Nodule/Mass Comments Rads 0 - Infection vs Inflammation. [facility] * Reason Onset Date Comments STAIR Lung Nodule 09/20/2022 This is RADS 0 . Infection vs. Inflammatory Encounter Details Date Type Department Care Team Description 09/20/2022 Telephone STAIR LUNG NODULE [address] [place] [address] Program, Stair [address] [place] [address] STAIR Lung Nodule (This is RADS 0. [...] Active Additional Information Patient taking differently:3 mL [id number] PRN, Reported on 07/10/2022 Calcium 600+D3 Plus [...] Feb 2016- son . 01/11 DR Ga-consider Rx/senior counsel re: of son Deviated nasal septum [...] mRNA, LNP-s, No Pre serve, 2-Dose Series ([employer]) 06/06/2021,11/28/2020,04/23/2020,07/2020 Covid-19, Mrna, Lnp-s, Pf, B ivalent, 30 Mcg, IM, 12 yrs and above ([employer]) 12/18/2021 H1N1 2009 Influenza, IM 02/03/2009 Pneumococcal [...] (+) CTs from OSH (recent admission @ [facility]). Questions/Concerns answered. Low Dose CT Lung-RADS Scoring: Lung-RADS Score 0 (suggestive of an inflammatory or infectious process) - care transferred to [facility] for clinical review, setting care plan, and [...] questions. Sharon Fountain LPN Lung Cancer Screening Monorail Helper [phone] * Telephone Encounter - Sharon Fountain LPN - 09/20/2022 9:34 AM EDT Lung Cancer Screening Program (LCSP) Results Call Summary 09/20/2022 Phoned to discuss test results. No answer. LVM. Await return call. Sharon Fountain LPN Lung Cancer Screening Monorail Helper [phone] documented in this encounter Plan of Treatment Upcoming Encounters Date Type Specialty Care Team Description 10/09/2022 Imaging Radiology 10/18/2022 Office Visit Family Medicine Dinora Zelaya CRNP [address] [place] [address] 10/31/2022 Office Visit Cardiology Smitha Mcdermott CRNP [address] [place] [address] Scheduled Orders Name Type Priority Associated Diagnoses [...] exists LUNG CANCER SCREENING - USE SMARTSET 85508 Completed 09/19/2022, 04/04/2022, 09/15/2020, Additional history exists [...] lung documented in this encounter Care Teams Water Meter Installer Relationship Specialty Start Date End Date Rafa Vargas MD [address] [place] [address] PCP - General Family Medicine 02/28/17 documented as of this encounter
--- OUTSIDE RECORDS SUMMARY | 2023-01-04 12:35 | External Medical Summary | Summary of Care ---
Author Name Unknown Organization [facility] Address [address] [place] [address] Phone [phone] Care Team Providers Care Bonding Machine Tender Name Role Phone Rafa Vargas MD Primary Care Provider + Reason for Visit * Reason Onset Date Comments Test Results 09/19/2022 Encounter Details Date Type Department Care Team Description 09/19/[address] [facility] [address] [facility] [place] [address] [facility] Zel[facility] [address] [facility] [place] [address] Test Results Allergies Active Allergy Reactions Severity Noted Date Comments Oxycodone 09/17/2019 hives documented as of this encounter (statuses as of 09/21/2022) Medications Medication Sig Dispensed Refills Start Date [...] Active Additional Information Patient taking differently:3 mL GhspnssumI5Q PRN, Reported on 07/10/2022 Calcium 600+D3 Plus [...] as of this encounter (statuses as of 09/21/2022) Active Problems Problem Noted Date Heart failure [...] Overview: Declines Shingrix. 2020 CT chest sched @[facility] 08/16 TTE normal EF Gr I hammonds dys @[facility] 10/13 colon WNL fracisco 5y 10/[address] wNL fracisco 1y Feb 2016- son . 01/11 DR Ga-consider Rx/licensed mental health counselor re: of son Deviated nasal septum 06/28/2016 History of tobacco use 04/19/2015 Overview: quit 03/29/15 COPD, group B, by GOLD 2017 classificati on 01/16/2011 Dyslipidemia HTN, goal below 130/80 Left rotator cuff tear documented as of this encounter (statuses as of 09/21/2022) Resolved Problems Problem Noted Date Resolved Date [...] as of this encounter (statuses as of 09/21/2022) Immunizations Name Administration Dates Next Due COVID-19 mRNA, LNP-s, No Pre serve, 2-Dose Series ([employer]) 06/06/2021,11/28/2020,04/23/2020,07/2020 Covid-19, Mrna, Lnp-s, Pf, B ivalent, [...] encounter Miscellaneous Notes * Telephone Encounter - Joyce Morris LPN [...] CT in 3 months. Venus, MSN, SALOMON [facility] Dr. Vargas * Telephone Encounter - LESLIE Pavon - 09/19/2022 7:47 PM EDT Hello- The radiologist discovered an unexpected or indeterminate finding on Niya Escudero ([id number]) and asks that you review the following [...] reviewed. Thank you, LESLIE Pavon Client Service [facility] documented in this encounter Plan of Treatment Upcoming Encounters Date Type Specialty Care Team Description 10/09/2022 Imaging Radiology 10/18/2022 Office Visit Family Medicine Dinora Zelaya CRNP [address] [facility] [place] [address] 10/31/2022 Office Visit Cardiology Smitha Mcdermott CRNP [address] [place] [address] Scheduled Procedures Name Priority Associated Diagnoses Date/Ti [...] exists LUNG CANCER SCREENING - USE SMARTSET 95676 Completed 09/19/2022, 04/04/2022, 09/15/2020, Additional history exists [...] filedocumented as of this encounter Care Teams Bonding Machine Tender Relationship Specialty Start Date End Date Rafa Vargas MD [address] [place] [address] PCP - General Family Medicine 02/28/17 documented as of this encounter
--- OUTSIDE RECORDS SUMMARY | 2023-01-04 12:35 | External Medical Summary | Summary of Care ---
Author Name Unknown Organization [facility] Address [address] [place] [address] Phone [phone] Care Team Providers Care Soda Dispenser Name Role Phone Rafa Vargas MD Primary Care Provider + Reason for Referral * Precert (Within 10 days (routine)) - Pending Review Specialty Diagnoses / Procedures Referred By Pio jenkins Referred To Contact Radiology Diagnoses Other nonspecific abnormal finding of lung field Ground glass opacity present on imaging of lung Procedures CT CHEST WO CONTRAST Link Natarajan, SIVAN [address] [place] [address] Referral ID Status Reason Start Date Expiration Date V isits Requested Visits Authorized [id number] Pending Review 12/21/2022 999 999 * Evaluate & Treat - Unlimited Visits (Within 3 days (urgent)) - Authorized Specialty Diagnoses / Procedures Referred By Contblake t Referred To Contact Pulmonary Diseases / Pulmonary Diagnoses Other nonspecific abnormal finding of lung field Kaushal Freeman MD [address] [place] [address] Referral ID Status Reason Start Date Expiration Date Visits Requested Visits Authorized [id number] Authorized Specialty Services Required 09/20/2022 999 999 Question Answer Referral Priority Within 3 Days (Urgent) Primary Reason for Referral? Lung Nodule/Mass Comments Rads 0 - Infection vs Inflammation. [facility] [place] [facility] * Reason Onset Date Comments STAIR Lung Nodule 09/20/2022 This is RADS 0 . Infection vs. Inflammatory Encounter Details Date Type Department Care Team Description 09/20/2022 Telephone STAIR LUNG NODULE [address] [place] [address] Program, Stair [address] [place] [address] STAIR Lung Nodule (This is RADS 0. [...] Active Additional Information Patient taking differently:3 mL KpydyukoyQ1C PRN, Reported on 07/10/2022 Calcium 600+D3 Plus [...] Declines Shingrix. 2020 CT chest sched @[facility] 08/16 TTE normal EF Gr I hammonds dys @[facility] 10/13 colon WNL fracisco 5y [...] mRNA, LNP-s, No Pre serve, 2-Dose Series ([employer]) 06/06/2021,11/28/2020,04/23/2020,07/2020 Covid-19, Mrna, Lnp-s, Pf, B ivalent, 30 Mcg, IM, 12 yrs and above ([employer]) 12/18/2021 H1N1 2009 Influenza, IM 02/03/2009 Pneumococcal [...] (+) CTs from OSH (recent admission @ [facility]). Questions/Concerns answered. Low Dose CT Lung-RADS Scoring: Lung-RADS Score 0 (suggestive of an inflammatory or infectious process) - care transferred to [facility] for clinical review, setting care plan, [...] questions. Sharon Fountain LPN Lung Cancer Screening Hydraulic Rockbreaker Operator [phone] * Telephone Encounter - Sharon Fountain LPN - 09/20/2022 9:34 AM EDT Lung Cancer Screening Program (LCSP) Results Call Summary 09/20/2022 Phoned to discuss test results. No answer. LVM. Await return call. Sharon Fountain LPN Lung Cancer Screening Hydraulic Rockbreaker Operator [phone] documented in this encounter Plan of Treatment Upcoming Encounters Date Type Specialty Care Team Description 10/09/2022 Imaging Radiology 10/18/2022 Office Visit Family Medicine Dinora Zelaya CRNP [address] [place] [address] 10/31/2022 Office Visit Cardiology Smitha Mcdermott CRNP [address] [place] [address] 12/21/2022 Imaging Radiology Scheduled Orders Name Type [...] exists LUNG CANCER SCREENING - USE SMARTSET 33268 Completed 09/19/2022, 04/04/2022, 09/15/2020, Additional history exists [...] lung documented in this encounter Care Teams Soda Dispenser Relationship Specialty Start Date End Date Rafa Vargas MD [address] [place] [address] PCP - General Family Medicine 02/28/17 documented as of this encounter
--- OUTSIDE RECORDS SUMMARY | 2023-01-04 12:35 | External Medical Summary | Summary of Care ---
Author Name Unknown Organization [facility] Address [address] [place] [address] Phone [phone] Care Team Providers Care Deburring Machine Operator Name Role Phone Rafa Vargas MD Primary Care Provider + Reason for Referral * Precert (Within 10 days (routine)) - Pending Review Specialty Diagnoses / Procedures Referred By Pio jenkins Referred To Contact Radiology Diagnoses Other nonspecific abnormal finding of lung field Ground glass opacity present on imaging of lung Procedures CT CHEST WO CONTRAST Link Natarajan, SIVAN [address] [place] [address] Referral ID Status Reason Start Date Expiration Date V isits Requested Visits Authorized [id number] Pending Review 12/21/2022 999 999 * Evaluate & Treat - Unlimited Visits (Within 3 days (urgent)) - Authorized Specialty Diagnoses / Procedures Referred By Contblake t Referred To Contact Pulmonary Diseases / Pulmonary Diagnoses Other nonspecific abnormal finding of lung field Kaushal Freeman MD [address] [place] [address] Referral ID Status Reason Start Date Expiration Date Visits Requested Visits Authorized [id number] Authorized Specialty Services Required 09/20/2022 999 999 Question Answer Referral Priority Within 3 Days (Urgent) Primary Reason for Referral? Lung Nodule/Mass Comments Rads 0 - Infection vs Inflammation. [facility] [place] [facility] Visit * Reason Onset Date Comments STAIR Lung Nodule 09/20/2022 This is RADS 0 . Infection vs. Inflammatory Encounter Details Date Type Department Care Team Description 09/20/2022 Telephone STAIR LUNG NODULE [address] [place] [address] Program, Stair [address] [place] [address] STAIR Lung Nodule (This is RADS 0. [...] Active Additional Information Patient taking differently:3 mL OipihcrnsQ0J PRN, Reported on 07/10/2022 Calcium 600+D3 Plus [...] Declines Shingrix. 2020 CT chest sched @[facility] 08/16 TTE normal EF Gr I hammonds dys @[facility] 10/13 colon WNL fracisco 5y 10/[address] wNL fracisco 1y Feb 2016- son . 01/11 DR Ga-consider Rx/job placement counselor re: of son Deviated nasal septum [...] mRNA, LNP-s, No Pre serve, 2-Dose Series ([employer]) 06/06/2021,11/28/2020,04/23/2020,07/2020 Covid-19, Mrna, Lnp-s, Pf, B ivalent, 30 Mcg, IM, 12 yrs and above ([employer]) 12/18/2021 H1N1 2009 Influenza, IM 02/03/2009 Pneumococcal [...] (+) CTs from OSH (recent admission @ [facility]). Questions/Concerns answered. Low Dose CT Lung-RADS Scoring: Lung-RADS Score 0 (suggestive of an inflammatory or infectious process) - care transferred to [facility] for clinical review, setting care plan, [...] questions. Sharon Fountain LPN Lung Cancer Screening Wardrobe Assistant [phone] * Telephone Encounter - Sharon Fountain LPN - 09/20/2022 9:34 AM EDT Lung Cancer Screening Program (LCSP) Results Call Summary 09/20/2022 Phoned to discuss test results. No answer. LVM. Await return call. Sharon Fountain LPN Lung Cancer Screening Wardrobe Assistant [phone] documented in this encounter Plan of Treatment Upcoming Encounters Date Type Specialty Care Team Description 10/09/2022 Imaging Radiology 10/18/2022 Office Visit Family Medicine Dinora Zelaya CRNP [address] [place] [address] 10/31/2022 Office Visit Cardiology Smitha Mcdermott CRNP [address] [place] [address] Scheduled Orders Name Type Priority Associated Diagnoses [...] exists LUNG CANCER SCREENING - USE SMARTSET 82775 Completed 09/19/2022, 04/04/2022, 09/15/2020, Additional history exists [...] lung documented in this encounter Care Teams Deburring Machine Operator Relationship Specialty Start Date End Date Rafa Vargas MD [address] [place] [address] PCP - General Family Medicine 02/28/17 documented as of this encounter
--- OUTSIDE RECORDS SUMMARY | 2023-01-04 12:35 | External Medical Summary | Summary of Care ---
Author Name Unknown Organization [facility] Address [address] [place] [address] Phone [phone] Care Team Providers Care Residence Hall Director Name Role Phone Rafa Vargas MD Primary Care Provider + Reason for Visit * Reason Onset Date Comments Test Results 09/19/2022 Encounter Details Date Type Department Care Team Description 09/19/2022 Telephone Family Practice [facility] [address] [facility] [place] [address] [facility] [address] [facility] [place] [address] Test Results Allergies Active Allergy Reactions Severity [...] Active Additional Information Patient taking differently:3 mL WdgqxpwjcK8X PRN, Reported on 07/10/2022 Calcium 600+D3 Plus [...] Declines Shingrix. 2020 CT chest sched @[facility] 08/16 TTE normal EF Gr I hammonds dys @[facility] 10/13 colon WNL fracisco 5y 10/[address] wNL fracisco 1y Feb 2016- son . 01/11 DR Ga-consider Rx/disability counselor re: of son Deviated nasal septum [...] mRNA, LNP-s, No Pre serve, 2-Dose Series ([email or web address]) 06/06/2021,11/28/2020,04/23/2020,07/2020 Covid-19, Mrna, Lnp-s, Pf, B ivalent, [...] CT in 3 months. Venus, MSN, SALOMON [facility] Dr. Vargas * Telephone Encounter - LESLIE Pavon - 09/19/2022 7:47 PM EDT Hello- The radiologist discovered an unexpected or indeterminate finding on Niya Escudero ([id number]) and asks that you review the following [...] reviewed. Thank you, LESLIE Pavon Client Service [facility] documented in this encounter Plan of Treatment Upcoming Encounters Date Type Specialty Care Team Description 10/09/2022 Imaging Radiology 10/18/2022 Office Visit Family Medicine Dinora Zelaya CRNP [address] [place] [address] 10/31/2022 Office Visit Cardiology Smitha Mcdermott CRNP [address] [place] [address] Scheduled Procedures Name Priority Associated Diagnoses Date/Ti [...] exists LUNG CANCER SCREENING - USE SMARTSET 140[address] Completed 09/19/2022, 04/04/2022, 09/15/2020, Additional history exists [...] filedocumented as of this encounter Care Teams Residence Hall Director Relationship Specialty Start Date End Date Rafa Vargas MD [address] [place] [address] PCP - General Family Medicine 02/28/17 documented as of this encounter
--- OUTSIDE RECORDS SUMMARY | 2023-01-04 12:36 | External Medical Summary | Summary of Care ---
Author Name Unknown Organization [facility] Address [address] [place] [address] Phone [phone] Care Team Providers Care Blow Machine Tender Starch Spraying Name Role Phone Rafa Pires MD Primary Care Provider + Reason for Visit * Reason Onset Date Comments Medication Refill 08/13/2022 Encounter Details Date Type Department Care Team Description 08/13/2022 Refill Family Practice [facility] [address] [facility] [place] [address] Rafa Pires MD [address] [facility] [place] [address] HTN, goal below 140/90 Allergies Active Allergy Reactions Severity Noted Date Comments Oxycodone 09/17/2019 hives documented as of this encounter (statuses as of 08/14/2022) Medications Medication Sig Dispensed Refills Start Date End Date Status omeprazole (PRILOSEC) 20 MG CPDRIndications:Lucy roesophageal reflux disease, esophagitis presence not specified Take 1 Capsule by mouth in the morning. 1 hour before the first meal of the day. 30 Cap 5 9 Active oxygen IN GAS Use 2 L/min(Oxygen) as directed at bedtime. 1 Each 0 1 Active Albuterol Sulfate HFA 108 (90 Base) MCG/ACT Inhalation Aerosol Solution USE 2 INHALATIONS BY MOUTH EVERY 4 HOURS NEEDED FOR WHEEZING 54 g 1 3 Active guaiFENesin ER 600 MG Oral Tablet Extended Release 12 Hour (Mucinex) Take 2 Tablets by mouth in the morning and 2 Tablets before bedtime. Take with plenty of water. Do not cut, crush or chew. 360 Tablet 3 3 Active Levocetirizine Dihydrochloride 5 MG Oral Tablet TAKE 1 TABLET BY MOUTH IN THE EVENING 90 Tablet 2 3 Active Ipratropium-Albutero l 0.5-2.5 (3) MG/3ML Inhalation Solution (Duoneb) Inhale 3 mL via nebulizer in the morning and 3 mL at noon and 3 mL in the evening and 3 mL before bedtime. 1080 mL 1 3 Active Additional Information Patient taking differently:3 mL [id number] PRN, Reported on 07/10/2022 Calcium 600+D3 Plus Minerals 600-800 MG-UNIT Oral Tablet Take by mouth daily. 0 Active Apixaban 5 MG Oral Tablet (Eliquis)Indications :Paroxysmal atrial fibrillation (HCC) Take 1 Tablet by mouth in the morning and 1 Tablet before bedtime. 180 Tablet 3 3 Active Losartan Potassium 50 MG Oral Tablet (Cozaar)Indications: HTN, goal below 140/90 TAKE 1 TABLET BY MOUTH DAILY 90 Tablet 1 3 Active Trelegy Ellipta 200-62.5-25 MCG/ACT Aerosol Powder Breath Activated (Fluticasone-Umeclid inium-Vilanterol) INHALE 1 INHALATION BY MOUTH IN THE MORNING Strength: 200-62.5-25 MCG/ACT 180 Each 1 3 Active Montelukast Sodium 10 MG Oral Tablet (Singulair) Take 1 Tablet by mouth at bedtime. 90 Tablet 2 3 Active Gabapentin 100 MG Oral Capsule (Neurontin) TAKE ONE CAPSULE BY MOUTH AT DINNER AND TWO CAPSULES ONE HOUR BEFORE BED 270 Capsule 3 3 Active Losartan Potassium 50 MG Oral Tablet (Cozaar)Indications: HTN, goal below 140/90 TAKE 1 TABLET BY MOUTH DAILY 90 Tablet 1 3 08/14/19 23 Discontinu ed(Refill) Trelegy Ellipta 200-62.5-25 MCG/ACT Aerosol Powder Breath Activated (Fluticasone-Umeclid inium-Vilanterol) INHALE 1 INHALATION BY MOUTH IN THE MORNING Strength: 200-62.5-25 MCG/ACT 180 Each 1 3 08/14/19 23 Discontinu ed(Refill) Montelukast Sodium 10 MG Oral Tablet (Singulair) TAKE 1 TABLET BY MOUTH AT BEDTIME 90 Tablet 3 3 08/14/19 23 Discontinu ed(Refill) Gabapentin 100 MG Oral Capsule (Neurontin) TAKE ONE CAPSULE BY MOUTH AT DINNER AND TWO CAPSULES ONE HOUR BEFORE BED 270 Capsule 3 3 08/14/19 Discontinu ed(Refill) documented as of this encounter (statuses as of 08/14/2022) Active Problems Problem Noted Date Paroxysmal atrial fibrillation 3 Overview: 07/17 start [...] Feb 2016- son . 01/11 DR Ga-consider Rx/extension course counselor re: of son Deviated nasal septum 06/28/2016 History of tobacco use 04/19/2015 Overview: quit 03/29/15 COPD, group B, by GOLD 2017 classificati on 01/16/2011 Dyslipidemia HTN, goal below 130/80 Left rotator cuff tear documented as of this encounter (statuses as of 08/14/2022) Resolved Problems Problem Noted Date Resolved Date [...] as of this encounter (statuses as of 08/14/2022) Immunizations Name Administration Dates Next Due COVID-19 [...] Miscellaneous Notes * Telephone Encounter - Rafa Pires MD - 08/14/2022 5:57 PM EDTSigned Prescriptions: Disp Refills Losartan Potassium 50 MG Oral Tablet (Coza*90 Tab*1 Sig: TAKE 1 TABLET BY MOUTH DAILY Authorizing Provider: RAFA PIRES Ordering User: MIRNA LEONG Trelegy Ellipta 200-62.5-25 MCG/ACT Aeroso*180 Ea*1 Sig: INHALE 1 INHALATION BY MOUTH IN THE MORNING Strength: 200-62.5-25 MCG/ACT Authorizing Provider: RAFA PIRES Ordering User: MIRNA LEONG Montelukast Sodium 10 MG Oral Tablet (Sing*90 Tab*2 Sig: Take 1 Tablet by mouth at bedtime. Authorizing Provider: DINORA MORFIN Ordering User: MIRNA LEONG Gabapentin 100 MG Oral Capsule (Neurontin) 270 Ca*3 Sig: TAKE ONE CAPSULE BY MOUTH AT DINNER AND TWO CAPSULES ONE HOUR BEFORE BED Authorizing Provider: RAFA PIRES * Telephone Encounter - Mirna Leong [facility] - 08/14/2022 4:15 PM EDTPending Prescriptions: Disp Refills Gabapentin 100 MG Oral Capsule (Neurontin) 270 Ca*3 Sig: TAKE ONE CAPSULE BY MOUTH AT DINNER AND TWO CAPSULES ONE HOUR BEFORE BED Signed Prescriptions: Disp Refills Losartan Potassium 50 MG Oral Tablet (Coza*90 Tab*1 Sig: TAKE 1 TABLET BY MOUTH DAILY [facility]: MIRNA LEONG Trelegy Ellipta 200-62.5-25 MCG/ACT Aeroso*180 Ea*1 Sig: INHALE 1 INHALATION BY MOUTH IN THE MORNING Strength: 200-62.5-25 MCG/ACT Authorizing Provider: RAFA PIRES Ordering User: MIRNA LEONG Montelukast Sodium 10 MG Oral Tablet (Sing*90 Tab*2 Sig: Take 1 Tablet by mouth at bedtime. Authorizing Provider: DINORA MORFIN Ordering User: MIRNA DOUGLAS * Telephone Encounter - Mirna Leong RP - 08/14/2022 4:14 PM EDT Did you pend patient's preferred pharmacy and medication before forwarding?yes Pharmacy: [facility] Pending Prescriptions: Disp Refills Gabapentin 100 MG Oral Capsule (Neurontin)270 Ca*3 Sig: TAKE ONE CAPSULE BY MOUTH AT DINNER AND TWO CAPSULES ONE HOUR BEFORE BED Signed Prescriptions: Disp Refills Losartan Potassium 50 MG Oral Tablet (Coza*90 Tab*1 Sig: TAKE 1 TABLET BY MOUTH DAILY Authorizing Provider: RAFA PIRES Ordering User: MIRNA LEONG Trelegy Ellipta 200-62.5-25 MCG/ACT Aeroso*180 Ea*1 Sig: INHALE 1 INHALATION BY MOUTH IN THE MORNING Strength: 200-62.5-25 MCG/ACT Authorizing Provider: RAFA PIRES Ordering User: MIRNA LEONG Montelukast Sodium 10 MG Oral Tablet (Sing*90 Tab*2 Sig: Take 1 Tablet by mouth at bedtime. Authorizing Provider: DINORA MORFIN Ordering User: MIRNA LEONG Last Visit: 05/30/2022 (in office), 10/15/2019 (telemedicine) Next Visit: 09/06/2022 If no future appointments scheduled, and last appointment is greater than a year ago, please schedule patient for a follow-up appointment Last date the medication was ordered: 05/07/22 Is this request for a controlled substance?No Urine Drug Screen:No results found for this or any previous visit. Patient Phone Numbers Labs: Lab Results Component Value Date/Time CREAT 0.8 03/02/2022 09:17 AM CREAT 0.7 12/05/2019 08:10 AM POTASSIUM 4.3 06/07/2022 07:56 AM POTASSIUM 3.5 12/05/2019 08:10 AM TSH 2.57 09/12/2012 09:22 AM LDLCALC 131 (H) 08/13/2022 07:52 AM LDLCALC 133 (H) 12/05/2019 08:10 AM LDLDIRECT 101 11/25/2020 10:24 AM LDLDIRECT NOT APPLICABLE 12/05/2019 08:10 AM ALT 21 03/02/2022 09:17 AM ALT 23 12/05/2019 08:10 AM * Telephone Encounter - Mirna Leong RPh - 08/14/2022 4:13 PM EDT Rerouted remaining refills to new pharmacy as requested. Thanks, Mirna Leong Clinical Pharmacist [facility] (Formerly [facility]) [phone] 08/14/2022, 4:13 PM documented in this encounter Plan of Treatment Upcoming Encounters Date Type Specialty Care Team Description 08/17/2022 Imaging Radiology 09/06/2022 Office Visit Family Medicine Dinora Morfin CRNP [address] [place] [id number] 10/31/2022 Office Visit Cardiology Smitha Mcdremott CRNP [address] [place] [id number] Scheduled Procedures Name Priority Associated Diagnoses Date/Ti me COLONOSCOPY FLEXIBLE PROXIMAL DIAGNOSTIC Recall History of colon polyps Health Maintenance Due Date Last Done Comments Alpha-1 Antitrypsin 1968 Zoster Vaccines (1 of 2) 2000 DTaP,Tdap,and Td Vaccines (2 - Td or Tdap) 10/16/2020 10/16/2010, 09/21/2003, 02/25/1993 DXA Scan 09/13/2022 09/14/2015, 11/25, 12/10/2006 Depression Screening, Annual for Pts 12 and Over 10/04/2022 10/04/2021 GFR 03/02/2023 03/02/2022, 02/2020, 12/05/2019, Additional history exists O2 ASSESSMENT COMPLETED IN PAST YEAR FOR COPD 07/11/2023 07/10/2022 Mammogram 08/01/2023 07/31/2022, 04/2021, 08/04/2020, Additional history exists COLONOSCOPY-EVERY 5 YRS AGES 18-100 10/10/2023 10/09/2018, 10/09/2018, 06/04/2013, Additional history exists Albumin/Creatinine Ratio 03/02/2025 03/02/2022, 02/2020 Lipid Panel 08/14/2027 08/13/2022, 02/2020, 12/05/2019, Additional history exists Pneumococcal Vaccine: 65+ Years Completed 05/31/2017, 08/15/2015, 05/11/2008 Influenza Vaccine (FLU shot) Completed , 11/10/2021, 11/18/2020, Additional history exists COVID-19 Vaccine Completed 12/18/2021, 01/2022, 06/06/2021, Additional history exists LUNG CANCER SCREENING - USE SMARTSET 32260 Completed 04/04/2022, 09/15/2020, 10/16/2019, Additional history exists [...] as of this encounter Visit Diagnoses Diagnosis HTN, goal below 140/90 Unspecified essential hypertension documented in this encounter Care Teams Blow Machine Tender Starch Spraying Relationship Specialty Start Date End Date Rafa Pires MD [address] [place] [address] PCP - General Family Medicine 02/28/17 documented as of this encounter
--- OUTSIDE RECORDS SUMMARY | 2023-01-04 12:36 | External Medical Summary ---
Author Name Unknown Address Unknown Organization [id number]:[place] [facility] [place] [address] [facility] [address] Laboratory Report Ordering Provider Test Date Status PRANAY MARADIAGA 08/13/2022 07:52:49 Final Observation Date Value Abnormality Reference (Units ) Status WBC, Total 08/13/2022 07:52:49 7.42 4.00-10.8 0 (K/uL) Final RBC 08/13/2022 07:52:49 4.54 3.85-5.15 (M/uL) Final Hemoglobin 08/13/2022 07:52:49 13.3 12.0-15.3 (g/dL) Final Anemia reflex testing trigge rs on a HGB < 12.0 for Females and HGB < 13.0 for Males in accordance with the WHO Anemia Guidelines
Anemia reflex testing triggers on a HGB < 12.0 for Females and HGB < 13.0 for Males in accordance with the WHO Anemia Guidelines HCT 08/13/2022 07:52:49 41.7 36.0-45.2 (%) Final MCV 08/13/2022 07:52:49 91.9 81.5-97.5 (fL) Final MCH 08/13/2022 07:52:49 29.3 27.0-34.0 (pg) Final MCHC 08/13/2022 07:52:49 31.9 32.0-36.0 (g/dL) Final RDW 08/13/2022 07:52:49 14.6 11.5-15.5 (%) Final Platelets 08/13/2022 07:52:49 263 140-400 (K /uL) Final MPV 08/13/2022 07:52:49 10.7 6.6-11.1 ( fL) Final Nucleated erythrocytes/100 leukocytes [Ratio] in Blood by Automated count 08/13/2022 07:52:49 0 <=0 (/100 WBCs) Fi [facility] Performing Location LAB[facility]ATORY [facility] - [address] [facility] [address]
--- OUTSIDE RECORDS SUMMARY | 2023-01-04 12:36 | External Medical Summary ---
Author Name Unknown Address Unknown Organization [id number]:[facility]ORY [facility] [place] - [address] [facility] [address] Laboratory Report Ordering Provider Test Date Status PRANAY MARADIAGA 08/13/2022 07:52:49 Final Observation Date Value Abnormality Reference (Units ) Status SYNC LEUKOCYTES IN BLOOD BY AUTOMATED COUNT 08/13/2022 07:52:49 7.42 4.00-10.80 (K/uL) Final Segs 08/13/2022 07:52:49 47.7 40.0-75.0 (%) Final Lymphs % 08/13/2022 07:52:49 39.6 18.0-42.0 (%) Final Monos 08/13/2022 07:52:49 6.5 1.0-11.0 (%) Final Eosinophils 08/13/2022 07:52:49 5.5 0.0-6.0 (%) Final Basos 08/13/2022 07:52:49 0.4 0.0-2.0 (%) Final Immature Granulocyte, Percent 08/13/2022 07:52:49 0.3 0.0-2.0 (%) Final Absolute Segs 08/13/2022 07:52:49 3.54 1.80-7.70 (K/uL) Final Lymphs, absolute 08/13/2022 07:52:49 2.94 1.00-4.80 (K/ul) Final Monos, Abs 08/13/2022 07:52:49 0.48 0.00-1.10 (K/uL) Final Eos, Abs 08/13/2022 07:52:49 0.41 0.00-0.70 (K/uL) Final Basos, Abs 08/13/2022 07:52:49 0.03 0.00-0.20 (K/uL) Final Immature Granulocytes, Number 08/13/2022 07:52:49 0.02 0.00-0.20 (K/uL) Final Performing Location LAB[facility]ORY [facility] [place] - [address] [facility] [address]
--- OUTSIDE RECORDS SUMMARY | 2023-01-04 12:36 | External Medical Summary | Summary of Care ---
Author Name Unknown Organization [facility] Address [address] [place] [address] Phone [phone] Care Team Providers Care It Compliance Analyst Name Role Phone Rafa Vargas MD Primary Care Provider + Reason for Visit * Reason Onset Date Comments Information 07/31/2022 AAA screen Encounter Details Date Type Department Care Team Description 07/31/2022 Telephone Family Practice [facility] [address] [place] [address] Rafa Vargas MD [address] [place] [id number] Information (AAA screen) Allergies Active Allergy Reactions Severity Noted Date Comments Oxycodone 09/17/2019 hives documented as of this encounter (statuses as of 08/06/2022) Medications Medication Sig Dispensed Refills Start Date End Date Status omeprazole (PRILOSEC) 20 MG CPDRIndications:Gastr oesophageal reflux disease, esophagitis presence not specified Take 1 Capsule by mouth in the morning. 1 hour before the first meal of the day. 30 Cap 5 06/02/2018 Active oxygen IN GAS Use 2 L/min(Oxygen) as directed at bedtime. 1 Each 0 10/26/2020 Active Albuterol Sulfate HFA 108 (90 Base) MCG/ACT Inhalation Aerosol Solution USE 2 INHALATIONS BY MOUTH EVERY 4 HOURS NEEDED FOR WHEEZING 54 g 1 03/21/2022 Active Losartan Potassium 50 MG Oral Tablet (Cozaar)Indications:H TN, goal below 140/90 TAKE 1 TABLET BY MOUTH DAILY 90 Tablet 1 03/21/2022 Active guaiFENesin ER 600 MG Oral Tablet Extended Release 12 Hour (Mucinex) Take 2 Tablets by mouth in the morning and 2 Tablets before bedtime. Take with plenty of water. Do not cut, crush or chew. 360 Tablet 3 03/20/2022 Active Levocetirizine Dihydrochloride 5 MG Oral Tablet TAKE 1 TABLET BY MOUTH IN THE EVENING 90 Tablet 2 03/21/2022 Active Trelegy Ellipta 200-62.5-25 MCG/ACT Aerosol Powder Breath Activated (Fluticasone-Umeclidi nium-Vilanterol) INHALE 1 INHALATION BY MOUTH IN THE MORNING Strength: 200-62.5-25 MCG/ACT 180 Each 1 03/21/2022 Active Montelukast Sodium 10 MG Oral Tablet (Singulair) TAKE 1 TABLET BY MOUTH AT BEDTIME 90 Tablet 3 05/06/2022 Active Additional Information Patient taking differently:10 mg OralDaily(AM), Reported on 07/10/2022 Gabapentin 100 MG Oral Capsule (Neurontin) TAKE ONE CAPSULE BY MOUTH AT DINNER AND TWO CAPSULES ONE HOUR BEFORE BED 270 Capsule 3 05/07/2022 Active Ipratropium-Albuterol 0.5-2.5 (3) MG/3ML Inhalation Solution (Duoneb) Inhale 3 mL via nebulizer in the morning and 3 mL at noon and 3 mL in the evening and 3 mL before bedtime. 1080 mL 1 05/09/2022 Active Additional Information Patient taking differently:3 mL [id number] PRN, Reported on 07/10/2022 Calcium 600+D3 Plus Minerals 600-800 MG-UNIT Oral Tablet Take by mouth daily. 0 Active Apixaban 5 MG Oral Tablet (Eliquis) Take 1 Tablet by mouth in the morning and 1 Tablet before bedtime. 68 Tablet 11 07/10/2022 Active documented as of this encounter (statuses as of 08/06/2022) Active Problems Problem Noted Date Paroxysmal atrial [...] Overview: Declines Shingrix. 2020 CT chest sched @[facility] [place] 08/16 TTE normal EF Gr I hammonds dys @[facility] [place] 10/13 colon WNL fracisco 5y 10/[address] wNL fracisco 1y Feb 2016- son . 01/11 DR Ga-consider Rx/appliance counselor re: of son Deviated nasal septum 06/28/2016 History of tobacco use 04/19/2015 Overview: quit 03/29/15 COPD, group B, by GOLD 2017 classificati on 01/16/2011 Dyslipidemia HTN, goal below 130/80 Left rotator cuff tear documented as of this encounter (statuses as of 08/06/2022) Resolved Problems Problem Noted Date Resolved Date [...] as of this encounter (statuses as of 08/06/2022) Immunizations Name Administration Dates Next Due COVID-19 mRNA, LNP-s, No Pre serve, 2-Dose Series ([employer]) 06/06/2021,11/28/2020,04/23/2020,07/2020 Covid-19, Mrna, Lnp-s, Pf, B ivalent, 30 Mcg, IM, 12 yrs and above ([employer]) 12/18/2021 H1N1 2009 Influenza, IM 02/03/2009 [...] encounter Miscellaneous Notes * Telephone Encounter - Nichelle Kay LPN - 08/06/2022 12:02 PM EDT Through advanced analysis/trending of this patient's history, they have been identified to have a positive AAA flag and are at a higher risk for Abdominal aortic aneurysm. This advanced analysis estimates the patient's risk for AAA. It only indicates that the patient's chances to have this condition are higher compared to most people. It does not indicate that the patient has this condition, but it is highly recommended the patient have a AAA screening for further evaluation. I have contacted the patient regarding scheduling a AAA screening. Outcomes: AAA screening ordered and scheduled * Telephone Encounter - Nichelle Kay LPN - 08/06/2022 11:17 AM EDT I am calling to discuss some recommended testing. Our records indicate that you are due for a screening ultrasound of your aorta (this test checks for an enlargement of your aorta at the level of your abdomen). Have you had discussions with your provider about this?we've recently started evaluating your electronic health record to provide better screening and care for people at risk for disease of the aorta (the main artery that carries blood from your heart to the rest of your body). Based on your laboratory results and other clinical conditions, you may be at high risk for an abdominal aortic aneurysm (AAA, an enlargement of your lower aorta). This evaluation doesn't mean you have an AAA. It just means you should get screened at your earliest convenience by having an ultrasound. The screening results will tell your doctor if there's anything they need to examine more closely. Through advanced analysis/trending of this patient's history, they have been identified to have a positive AAA flag and are at a higher risk for Abdominal aortic aneurysm. This advanced analysis estimates the patient's risk for AAA. It only indicates that the patient's chances to have this condition are higher compared to most people. It does not indicate that the patient has this condition, but it is highly recommended the patient have a AAA screening for further evaluation. I have contacted the patient regarding scheduling a AAA screening. Outcomes: Left message * Telephone Encounter - Nichelle Kay LPN - 07/31/2022 3:20 PM EDT Through advanced analysis/trending of this patient's history, they have been identified to have a positive AAA flag and are at a higher risk for Abdominal aortic aneurysm. Pt will be contacted by a [facility] nurse to discuss AAA screening. documented in this encounter Plan of Treatment Upcoming Encounters Date Type Specialty Care Team Description 08/17/2022 Imaging Radiology 09/06/2022 Office Visit Family Medicine Dinora Zelaya CRNP [address] [place] [address] 10/31/2022 Office Visit Cardiology Smitha Mcdermott CRNP [address] [place] [address] Scheduled Orders Name Type Priority Associated Diagnoses Orde r Schedule US AAA SCREEN, RADIOLOGY Medical Imaging Routine Screening for AAA (abdominal aortic aneurysm) Expected: 08/06/2022, Expires: 08/07/2023 Scheduled Procedures Name Priority Associated Diagnoses Date/Ti [...] Albumin/Creatinine Ratio 03/02/2025 03/02/2022, 02/2020 Lipid Panel 11/25/2025 11/25/2020, 11/25, 06/10/2018, Additional history exists Pneumococcal Vaccine: 65+ Years Completed 05/31/2017, 08/15/2015, 05/11/2008 Influenza Vaccine (FLU shot) Completed , 11/10/2021, 11/18/2020, Additional history exists COVID-19 Vaccine Completed 12/18/2021, 01/2022, 06/06/2021, Additional history exists LUNG CANCER SCREENING - USE SMARTSET 81826 Completed 04/04/2022, 09/15/2020, 10/16/2019, Additional history exists [...] as of this encounter Visit Diagnoses Diagnosis Screening for AAA (abdominal aortic aneurysm)- Primary Screening for other and unspecified cardiovascular conditions documented in this encounter Care Teams It Compliance Analyst Relationship Specialty Start Date End Date Rafa Vargas MD [address] [place] [phone] PCP - General Family Medicine 02/28/17 documented as of this encounter
--- OUTSIDE RECORDS SUMMARY | 2023-01-04 12:36 | External Medical Summary | Summary of Care ---
Author Name Unknown Organization [facility] Address [address] [place] [address] Phone [phone] Care Team Providers Care Used Equipment Sales Representative Name Role Phone Rafa Vargas MD Primary Care Provider + Reason for Visit * Reason Onset Date Comments Medication Refill 08/13/2022 Encounter Details Date Type Department Care Team Description 08/13/2022 Refill Cardiology, [facility] 132 [facility] [place] [id number] Juan M Evans DO 132 [facility] [place] [address] Paroxysmal atrial fibrillation (HCC)* Allergies Active Allergy Reactions Severity Noted Date Comments Oxycodone 09/17/2019 hives documented as of this encounter (statuses as of 08/13/2022) Medications Medication Sig Dispensed Refills Start Date [...] FOR WHEEZING 54 g 1 3 Active Losartan Potassium 50 MG Oral Tablet (Cozaar)Indications: HTN, goal below 140/90 TAKE 1 TABLET BY MOUTH DAILY 90 Tablet 1 3 Active guaiFENesin ER 600 MG Oral Tablet Extended Release 12 Hour (Mucinex) Take 2 Tablets by mouth in the morning and 2 Tablets before bedtime. Take with plenty of water. Do not cut, crush or chew. 360 Tablet 3 3 Active Levocetirizine Dihydrochloride 5 MG Oral Tablet TAKE 1 TABLET BY MOUTH IN THE EVENING 90 Tablet 2 3 Active Trelegy Ellipta 200-62.5-25 MCG/ACT Aerosol Powder Breath Activated (Fluticasone-Umeclid inium-Vilanterol) INHALE 1 INHALATION BY MOUTH IN THE MORNING Strength: 200-62.5-25 MCG/ACT 180 Each 1 3 Active Montelukast Sodium 10 MG Oral Tablet (Singulair) TAKE 1 TABLET BY MOUTH AT BEDTIME 90 Tablet 3 3 Active Additional Information Patient taking differently:10 mg OralDaily(AM), Reported on 07/10/2022 Gabapentin 100 MG Oral Capsule (Neurontin) TAKE ONE CAPSULE BY MOUTH AT DINNER AND TWO CAPSULES ONE HOUR BEFORE BED 270 Capsule 3 3 Active Ipratropium-Albutero l 0.5-2.5 (3) MG/3ML Inhalation Solution (Duoneb) Inhale 3 mL via nebulizer in the morning and 3 mL at noon and 3 mL in the evening and 3 mL before bedtime. 1080 mL 1 3 Active Additional Information Patient taking differently:3 mL QubyrihchW6Y PRN, Reported on 07/10/2022 Calcium 600+D3 Plus Minerals 600-800 MG-UNIT Oral Tablet Take by mouth daily. 0 Active Apixaban 5 MG Oral Tablet (Eliquis)Indications :Paroxysmal atrial fibrillation (HCC) Take 1 Tablet by mouth in the morning and 1 Tablet before bedtime. 180 Tablet 3 3 Active Apixaban 5 MG Oral Tablet (Eliquis) Take 1 Tablet by mouth in the morning and 1 Tablet before bedtime. 68 Tablet 11 3 08/14/19 23 Discontinu ed(Refill) documented as of this encounter (statuses as of 08/13/2022) Active Problems Problem Noted Date Paroxysmal atrial [...] as of this encounter (statuses as of 08/13/2022) Resolved Problems Problem Noted Date Resolved Date [...] as of this encounter (statuses as of 08/13/2022) Immunizations Name Administration Dates Next Due COVID-19 mRNA, LNP-s, No Pre serve, 2-Dose Series ([employer]) 06/06/2021,11/28/2020,04/23/2020,07/2020 Covid-19, Mrna, Lnp-s, Pf, B ivalent, 30 Mcg, IM, 12 yrs and above ([employer]) 12/18/2021 H1N1 2009 Influenza, IM 02/03/2009 Pneumococcal Conjugate Vacc, 13 Valent (Prevnar) 08/15/2015 Pneumococcal Polysaccharide PPV23 (Pneumovax) 05/31/2017,05/11/2008 Seasonal Influenza, Cell Charles willard, 18 Yrs & Older 12/26/2017 Seasonal Influenza, [...] Notes * Telephone Encounter - Juan M Evans DO - 08/13/2022 1:43 PM EDTSigned Prescriptions: Disp Refills Apixaban 5 MG Oral Tablet (Eliquis) 180 Ta*3 Sig: Take 1 Tablet by mouth in the morning and 1 Tablet before bedtime. Authorizing Provider: JUAN M EVANS * Telephone Encounter - GIOVANY Greenberg - 08/13/2022 1:20 PM EDTPending Prescriptions: Disp Refills Apixaban 5 MG Oral Tablet (Eliquis) 180 Ta*3 Sig: Take 1 Tablet by mouth in the morning and 1 Tablet before bedtime. * Telephone Encounter - GIOVANY Greenberg - 08/13/2022 1:19 PM EDT Pharmacy change Did you pend patient's preferred pharmacy and medication before forwarding?yes Pharmacy: [facility] Pending Prescriptions: Disp Refills Apixaban 5 MG Oral Tablet (Eliquis) 180 Ta*3 Sig: Take 1 Tablet by mouth in the morning and 1 Tablet before bedtime. Last Visit: 07/10/2022 (in office), Visit date not found (telemedicine) Next Visit: 10/31/2022 If no future appointments scheduled, and last appointment is greater than a year ago, please schedule patient for a follow-up appointment Last date the medication was ordered: 07-10-2022 Is this request for a controlled substance?No Urine Drug Screen:No results found for this or any previous visit. Patient Phone Numbers Labs: Lab Results Component Value Date/Time CREAT 0.8 03/02/2022 09:17 AM CREAT 0.7 12/05/2019 08:10 AM POTASSIUM 4.3 06/07/2022 07:56 AM POTASSIUM 3.5 12/05/2019 08:10 AM TSH 2.57 09/12/2012 09:22 AM LDLCALC 133 (H) 12/05/2019 08:10 AM LDLDIRECT 101 11/25/2020 10:24 AM LDLDIRECT NOT APPLICABLE 12/05/2019 08:10 AM ALT 21 03/02/2022 09:17 AM ALT 23 12/05/2019 08:10 AM documented in this encounter Plan of Treatment Upcoming Encounters Date Type Specialty Care Team Description 08/17/2022 Imaging Radiology 09/06/2022 Office Visit Family Medicine Dinora Zelaya CRNP [address] [place] [address] 10/31/2022 Office Visit Cardiology Smitha Mcdermott CRNP [address] [place] [address] Scheduled Procedures Name Priority Associated Diagnoses Date/Ti [...] exists LUNG CANCER SCREENING - USE SMARTSET 28469 Completed 04/04/2022, 09/15/2020, 10/16/2019, Additional history exists [...] Paroxysmal atrial fibrillation (HCC)- Primary Atrial fibrillation documented in this encounter Care Teams Used Equipment Sales Representative Relationship Specialty Start Date End Date Rafa Vargas MD [address] [place] [address] PCP - General Family Medicine 02/28/17 documented as of this encounter
--- OUTSIDE RECORDS SUMMARY | 2023-01-04 12:36 | External Medical Summary ---
Author Name Unknown Address Unknown Organization K01:LABORATORY [address] [facility] [address] Laboratory Report Ordering Provider Test Date Status PRANAY MARADIAGA 08/13/2022 07:52:49 Final Observation Date Value Abnormality Reference (Units ) Status Nuclear IgG Ab [Ratio] in Serum by Immunoassay 08/13/2022 07:52:49 Negative Negative Final DNA double strand Ab [Presence] in Serum 08/13/2022 07:52:49 Negative Negative Final DOUBLE STRANDED DNA VALUE - [facility] 08/13/2022 07:52:49 <0.6 <20 (IU/mL) Final Extractable nuclear Ab [Presence] in Serum 08/13/2022 07:52:49 Negative Negative Final Nuclear IgG Ab [Ratio] in Serum by Immunoassay 08/13/2022 07:52:49 0.6 <0.7 (Ratio) Final Screening is based on detect ion of the following antibodies: dsDNA, U1-SOFTWARE QUALITY SPECIALIST (RNP70, A, C), SS-A/Ro, SS-B / La, Nellie-1, Scl-70, Centromere B proteins and Sm proteins. In conjunction with clinical findings, this can aid in the diagnosis of systemic lupus erythematosous (SLE), mixed connective tissue disease (MCTD), Sjogren's syndrome, scleroderma and polymyositis/dermatomyositis.
However, a negative result does not rule out systemic rheumatic or other autoimmune disease. If clinically suspected, further evaluation and testing may be necessary. Please consult with Rheumatology Department.
Methodology: Fluorescent Enzyme Immunoassay. Performing Location LABORATORY [address] [facility] [address]
--- OUTSIDE RECORDS SUMMARY | 2023-01-04 12:36 | External Medical Summary ---
Author Name Unknown Address Unknown Organization K01:LABORATORY [facility] [place] - [address] [place] [address] Laboratory Report Ordering Provider Test Date Status PRANAY MARADIAGA 08/13/2022 07:52:49 Final Observation Date Value Abnormality Reference (Units ) Status Rheumatoid Factor 08/13/2022 07:52:49 10 <1 4 (IU/mL) Final Performing Location LABORATORY [facility] - [address] [place] [address]
--- OUTSIDE RECORDS SUMMARY | 2023-01-04 12:36 | External Medical Summary ---
Author Name Unknown Address Unknown Organization K01:LAB[facility]ATORY [facility] [place] [address] [place] [address] Laboratory Report Ordering Provider Test Date Status PRANAY MARADIAGA 08/13/2022 07:52:49 Final Observation Date Value Abnormality Reference (Units ) Status Erythrocyte sedimentation rate by Photometric method 08/13/2022 07:52:49 39 Above high normal <30 (mm/hour) Final Performing Location LABORATORY [facility] [place] [address] [place] [address]
--- OUTSIDE RECORDS SUMMARY | 2023-01-04 12:36 | External Medical Summary | Summary of Care ---
Author Name Unknown Organization [facility] Address [address] [place] [address] Phone [phone] Care Team Providers Care Vamp Marker Name Role Phone Rafa Vargas MD Primary Care Provider + Reason for Visit * Reason Onset Date Comments Advice 07/31/2022 Encounter Details Date Type Department Care Team Description 07/31/2022 Parking Lot Manager Telephone [facility] Practice [facility] [address] Ludy Dumont, biological science technician Allergies Active Allergy Reactions Severity Noted Date Comments Oxycodone 09/17/2019 hives documented as of this encounter (statuses as of 08/03/2022) Medications Medication Sig Dispensed Refills Start Date [...] Active Additional Information Patient taking differently:3 mL HtanpouybY2Z PRN, Reported on 07/10/2022 Calcium 600+D3 Plus Minerals 600-800 MG-UNIT Oral Tablet Take by mouth daily. 0 Active Apixaban 5 MG Oral Tablet (Eliquis) Take 1 Tablet by mouth in the morning and 1 Tablet before bedtime. 68 Tablet 11 07/10/2022 Active documented as of this encounter (statuses as of 08/03/2022) Active Problems Problem Noted Date Paroxysmal atrial fibrillation Overview: 07/17 start eliquis Osteopenia of lumbar spine 03/09/2022 Status post total right knee replacement 08/13/2021 Nocturnal hypoxemia 11/18/2020 Ground glass opacity present on imaging of lung 08/25/2020 Centrilobular emphysema 08/25/2020 Basal cell carcinoma (BCC) of forehead 1 04/08/2018 Status post right hip replacement 2018 RLS (restless legs syndrome) 06/25/2017 Well adult exam 01/17/2017 Overview: Declines Shingrix. 2020 CT chest sched @[facility] 08/16 TTE normal EF Gr I hammonds dys @[facility] 10/13 colon WNL fracisco 5y 10/[address] wNL fracisco 1y Feb 2016- son . 01/11 DR Ga-consider Rx/program counselor re: of son Deviated nasal septum 06/28/2016 History of tobacco use 04/19/2015 Overview: quit 03/29/15 COPD, group B, by GOLD 2017 classificati on 01/16/2011 Dyslipidemia HTN, goal below 130/80 Left rotator cuff tear documented as of this encounter (statuses as of 08/03/2022) Resolved Problems Problem Noted Date Resolved Date [...] as of this encounter (statuses as of 08/03/2022) Immunizations Name Administration Dates Next Due COVID-19 mRNA, LNP-s, No Pre serve, 2-Dose Series ([employer]) 06/06/2021,11/28/2020,04/23/2020,07/2020 Covid-19, Mrna, Lnp-s, Pf, B ivalent, 30 Mcg, IM, 12 yrs and above ([employer]) 12/18/2021 H1N1 2009 Influenza, IM 02/03/2009 Pneumococcal [...] encounter Miscellaneous Notes * Telephone Encounter - Petra Beck - 08/03/2022 2:36 PM EDT has an appt 713 with moody and already on wait list. * Telephone Encounter - Rafa Vargas MD - 08/03/2022 1:41 PM EDT Please put pt on cancellation list /notify pt * Telephone Encounter - Nancy Weight - 08/03/2022 12:18 PM EDT No acute appointments available that we have access too. First available appointment with anyone here would be August 27. Please advise patient. * Telephone Encounter - Petra Beck - 08/03/2022 8:09 AM EDT FYI pt has not called back for a sooner appt yet * Telephone Encounter - Petra Beck - 08/02/2022 8:40 AM EDT LM for pt to call back for an appt with any provider * Telephone Encounter - Petra Beck - 08/01/2022 8:13 AM EDT LM for pt to call back for an appt Ludy, if you talk to her please schedule an acute appt * Telephone Encounter - Rafa Vargas MD - 07/31/2022 8:50 PM EDT Please offer same day any provider. Ludy--tramadol could be an option, but should have appt to review. Has appt in August, but we can see if we can get in sooner * Telephone Encounter - Ludy Dumont RN - 07/31/2022 4:10 PM EDT CM progress note S: Patient called in to report that her pain is significant, not improving on tylenol 1,000mg 2-3x a day. This "takes the edge off" but is not enough. Considering stopping eliquis if she could go back on Diclofenac. Has swelling in hands, and "sacks" of fluid on palms of hands. No redness. Had mammogram completed today and had severe pain in shoulders "just holding onto that bar". Pain is the worst in arms and shoulders. Does not have chest pain or shortness of breath. O: phone call A: alert and oriented P: Message to PCP to notify and ask for advice. Dr. Vargas, Please advise, is there anything that could be prescribed for her pain? Or would you want any testing or appt to eval? Thank you! documented in this encounter Plan of Treatment Upcoming Encounters Date Type Specialty Care Team Description 09/06/2022 Office Visit Family Medicine Moody Zelaya CRNP [address] [place] [address] 10/31/2022 Office Visit Cardiology Smitha Mcdermott CRNP [address] [place] [address] Scheduled Procedures Name Priority Associated Diagnoses Date/Ti me COLONOSCOPY FLEXIBLE PROXIMAL DIAGNOSTIC Recall History of colon polyps Health Maintenance Due Date Last Done Comments Alpha-1 Antitrypsin 1968 Zoster Vaccines (1 of 2) 2000 DTaP,Tdap,and Td Vaccines (2 - Td or Tdap) 10/16/2020 10/16/2010, 09/21/2003, 02/25/1993 COVID-19 Vaccine (6 - Pfizer series) 04/20/2022 12/18/2021, 06/06/2021, 06/06/2021, Additional history exists Mammogram 07/28/2022 07/28/2021, 07/26, 08/04/2019, Additional history exists DXA Scan 09/13/2022 09/14/2015, 11/25, 12/10/2006 Depression Screening, Annual for Pts 12 and Over 10/04/2022 10/04/2021 GFR 03/02/2023 03/02/2022, 02/2020, 12/05/2019, Additional history exists O2 ASSESSMENT COMPLETED IN PAST YEAR FOR COPD 07/11/2023 07/10/2022 COLONOSCOPY-EVERY 5 YRS AGES 18-100 10/10/2023 10/09/2018, 10/09/2018, 06/04/2013, Additional history exists Albumin/Creatinine Ratio 03/02/2025 03/02/2022, 02/2020 Lipid Panel 11/25/2025 11/25/2020, 11/25, 06/10/2018, Additional history exists Pneumococcal Vaccine: 65+ Years Completed 05/31/2017, 08/15/2015, 05/11/2008 Influenza Vaccine (FLU shot) Completed , 11/10/2021, 11/18/2020, Additional history exists LUNG CANCER SCREENING - USE SMARTSET 23514 Completed 04/04/2022, 09/15/2020, 10/16/2019, Additional history exists [...] filedocumented as of this encounter Care Teams Vamp Marker Relationship Specialty Start Date End Date Rafa Vargas MD [address] [place] [address] PCP - General Family Medicine 02/28/17 documented as of this encounter
--- OUTSIDE RECORDS SUMMARY | 2023-01-04 12:36 | External Medical Summary ---
Author Name Unknown Address Unknown Organization K01:[facility] [place] [address] [facility] [place] [address] Laboratory Report Ordering Provider Test Date Status PRANAY MARADIAGA 08/13/2022 07:52:49 Final Observation Date Value Abnormality Reference (Units ) Status Borrelia burgdorferi IgG and IgM [Interpretation] in Serum by Immunoassay 08/13/2022 07:52:49 Negative Negative Final Performing Location [facility] [place] [address] [place] [address]
--- OUTSIDE RECORDS SUMMARY | 2023-01-04 12:36 | External Medical Summary | Summary of Care ---
Author Name Unknown Organization [facility] Address [address] [place] [address] Phone [phone] Care Team Providers Care Signal Intelligence Analyst Name Role Phone Rafa Vargas MD Primary Care Provider + Reason for Visit * Reason Onset Date Comments Advice 08/06/2022 Encounter Details Date Type Department Care Team Description 08/06/2022 Telephone Family Practice [facility] [address] [place] [address] Rafa Vargas MD [address] [place] [address] Advice Allergies Active Allergy Reactions Severity Noted Date Comments Oxycodone 09/17/2019 hives documented as of this encounter (statuses as of 08/07/2022) Medications Medication Sig Dispensed Refills Start Date [...] Active Additional Information Patient taking differently:3 mL FgqidiapwD7A PRN, Reported on 07/10/2022 Calcium 600+D3 Plus Minerals 600-800 MG-UNIT Oral Tablet Take by mouth daily. 0 Active Apixaban 5 MG Oral Tablet (Eliquis) Take 1 Tablet by mouth in the morning and 1 Tablet before bedtime. 68 Tablet 11 07/10/2022 Active documented as of this encounter (statuses as of 08/07/2022) Active Problems Problem Noted Date Paroxysmal atrial [...] Declines Shingrix. 2020 CT chest sched @[facility] 08/16 TTE normal EF Gr I hammonds dys @[facility] 10/13 colon WNL fracisco 10/[address] wNL fracisco 1y Feb 2016- son . 01/11 DR Ga-consider Rx/counseling director re: of son Deviated nasal septum 06/28/2016 History of tobacco use 04/19/2015 Overview: quit 03/29/15 COPD, group B, by GOLD 2017 classificati on 01/16/2011 Dyslipidemia HTN, goal below 130/80 Left rotator cuff tear documented as of this encounter (statuses as of 08/07/2022) Resolved Problems Problem Noted Date Resolved Date [...] as of this encounter (statuses as of 08/07/2022) Immunizations Name Administration Dates Next Due COVID-19 mRNA, LNP-s, No Pre serve, 2-Dose Series ([employer]) 06/06/2021,11/28/2020,04/23/2020,07/2020 Covid-19, Mrna, Lnp-s, Pf, B ivalent, 30 Mcg, IM, 12 yrs and above ([employer]) 12/18/2021 H1N1 2009 Influenza, IM 02/03/2009 Pneumococcal [...] Telephone Encounter - Nichelle Kay LPN - 08/07/2022 7:40 AM EDT Spoke with pt on the phone regarding recommendation yesterday. Will also send my p to patient so that she is able to view the reasoning for the AAA screen. * Telephone Encounter - Rafa Vargas MD - 08/06/2022 10:16 PM EDT Order placed by Arianne Kay--please contact patient * Telephone Encounter - LESLIE Dumas - 08/06/2022 11:59 AM EDT Pt calling [facility]. Pt is not aware why she needs the test. Please return call. documented in this encounter Plan of Treatment Upcoming Encounters Date Type Specialty Care Team Description 08/17/2022 Imaging Radiology 09/06/2022 Office Visit Family Medicine Dinora Zelaya CRNP [address] [place] [address] 10/31/2022 Office Visit Cardiology Smitha Mcdermott CRNP [address] [place] [address] Scheduled Procedures Name Priority Associated Diagnoses Date/Ti [...] exists LUNG CANCER SCREENING - USE SMARTSET 80666 Completed 04/04/2022, 09/15/2020, 10/16/2019, Additional history exists [...] filedocumented as of this encounter Care Teams Signal Intelligence Analyst Relationship Specialty Start Date End Date Rafa Vargas MD [address] [place] [address] PCP - General Family Medicine 02/28/17 documented as of this encounter
--- OUTSIDE RECORDS SUMMARY | 2023-01-04 12:36 | External Medical Summary | Summary of Care ---
Author Name Unknown Organization [facility] Address [address] [place] [address] Phone [phone] Care Team Providers Care Radio Disc Jockey Name Role Phone Rafa Vargas MD Primary Care Provider + Reason for Visit * Reason Onset Date Comments Advice 07/31/2022 Encounter Details Date Type Department Care Team Description 07/31/2022 Emergency Room Clinician Telephone Family Practice [facility] [address] Ludy Dumont, manager care Allergies Active Allergy Reactions Severity Noted Date [...] Active Additional Information Patient taking differently:3 mL SybjiwsuwS5Y PRN, Reported on 07/10/2022 Calcium 600+D3 Plus [...] CT chest sched @[facility] 08/16 TTE normal EF Gr I hammonds dys @[facility] 10/13 colon WNL fracisco 5y 10/[address] wNL fracisco 1y Feb 2016- son . 01/11 DR Ga-consider Rx/counseling center manager re: of son Deviated nasal septum 06/28/2016 [...] mRNA, LNP-s, No Pre serve, 2-Dose Series ([employer]) 06/06/2021,11/28/2020,04/23/2020,07/2020 Covid-19, Mrna, Lnp-s, Pf, B ivalent, 30 Mcg, IM, 12 yrs and above ([employer]) 12/18/2021 H1N1 2009 Influenza, IM 02/03/2009 Pneumococcal [...] encounter Miscellaneous Notes * Telephone Encounter - Sheeba Reed LPN - 08/07/2022 1:38 PM EDT See new My G from pt * Telephone Encounter - Petra Beck - 08/03/2022 2:36 PM EDT has an appt 09-06 with moody and already on wait list. * Telephone Encounter - Rafa Vargas MD - 08/03/2022 1:41 PM EDT Please put pt on cancellation list /notify pt * Telephone Encounter - Nancy Aguilar - 08/03/2022 12:18 PM EDT No acute [...] Imaging Radiology 09/06/2022 Office Visit Family Medicine Moody Zelaya CRNP [address] [place] [address] 10/31/2022 Office Visit Cardiology Smitha Mcdermott CRNP [address] [place] [address] Scheduled Procedures Name Priority Associated Diagnoses Date/Ti [...] exists LUNG CANCER SCREENING - USE SMARTSET 30599 Completed 04/04/2022, 09/15/2020, 10/16/2019, Additional history exists [...] filedocumented as of this encounter Care Teams Radio Disc Jockey Relationship Specialty Start Date End Date Rafa Vargas MD [address] [place] [address] PCP - General Family Medicine 02/28/17 documented as of this encounter
--- OUTSIDE RECORDS SUMMARY | 2023-01-04 12:36 | External Medical Summary | Summary of Care ---
Author Name Unknown Organization [facility] Address [address] [place] [address] Phone [phone] Care Team Providers Care Intensive Care Anaesthetist Name Role Phone Rafa Vargas MD Primary Care Provider + Reason for Visit * Reason Onset Date Comments Advice 07/31/2022 Encounter Details Date Type Department Care Team Description 07/31/2022 Creative Services Writer Telephone Family Practice [facility] [address] [facility] [address] Ludy Dumont, regional sales trainer Allergies Active Allergy Reactions Severity Noted Date [...] Active Additional Information Patient taking differently:3 mL CdypmddtxH1A PRN, Reported on 07/10/2022 Calcium 600+D3 Plus [...] Feb 2016- son . 01/11 DR Ga-consider Rx/intellectual property counsel re: of son Deviated nasal septum [...] mRNA, LNP-s, No Pre serve, 2-Dose Series ([employer]) 06/06/2021,11/28/2020,04/23/2020,07/2020 Covid-19, Mrna, Lnp-s, Pf, B ivalent, 30 Mcg, IM, 12 yrs and above ([employer]) 12/18/2021 H1N1 2009 Influenza, IM 02/03/2009 Pneumococcal [...] Team Description 09/06/2022 Office Visit Family Medicine Dinora Zelaya CRNP [address] [place] [address] 10/31/2022 Office Visit Cardiology Smitha Mcdermott CRNP [address] [place] [address] Scheduled Procedures Name Priority Associated Diagnoses Date/Ti [...] exists LUNG CANCER SCREENING - USE SMARTSET 98809 Completed 04/04/2022, 09/15/2020, 10/16/2019, Additional history exists [...] filedocumented as of this encounter Care Teams Intensive Care Anaesthetist Relationship Specialty Start Date End Date Rafa Vargas MD [address] [place] [address] PCP - General Family Medicine 02/28/17 documented as of this encounter
--- OUTSIDE RECORDS SUMMARY | 2023-01-04 12:36 | External Medical Summary | Summary of Care ---
Author Name Unknown Organization [facility] Address [address] [place] [address] Phone [phone] Care Team Providers Care Screener Operator Name Role Phone Rafa Vargas MD Primary Care Provider + Reason for Visit * Reason Comments Outpatient Testing Encounter Details Date Type Department Care Team Description 08/13/2022 Laboratory Laboratory, [place] [address] [place] [id number] [facility] [address], [place] [id number] Encounter for long-term (current) use of medications; Dyslipidemia; Multiple joint pain Allergies Active Allergy Reactions Severity Noted Date [...] Active Additional Information Patient taking differently:3 mL EkexnhmweV2Q PRN, Reported on 07/10/2022 Calcium 600+D3 Plus [...] CT chest sched @[facility] 08/16 TTE normal EF Gr I hammonds dys @[facility] 10/13 colon WNL fracisco 5y 10/[address] wNL fracisco 1y Feb 2016- son . 01/11 DR Ga-consider Rx/budget counselor re: of son Deviated nasal septum [...] mRNA, LNP-s, No Pre serve, 2-Dose Series ([employer]) 06/06/2021,11/28/2020,04/23/2020,07/2020 Covid-19, Mrna, Lnp-s, Pf, B ivalent, 30 Mcg, IM, 12 yrs and above ([employer]) 12/18/2021 H1N1 2009 Influenza, IM 02/03/2009 Pneumococcal [...] Visit Family Medicine Dinora Zelaya CRNP [address] [address] 10/31/2022 Office Visit Cardiology Smitha Mcdermott CRNP [address] [address] Pending Results Name Type Priority Associated Diagnoses Date /Time LIPID PANEL WITH DIRECT LDL IF TG IS HIGH Lab Routine Encounter for long-term (current) use of medications Dyslipidemia 08/13/2022 7:52 AM EDT ERYTHROCYTE SEDIMENTATION RATE (ESR) Lab Routine Multiple joint pain 08/13/2022 7:52 AM EDT CRP (INFLAMMATORY MARKER) Lab Routine Multiple joint pain 08/13/2022 7:52 AM EDT RHEUMATOID FACTOR Lab Routine Multiple joint pain 08/13/2022 7:52 AM EDT SYSTEMIC LUPUS ERYTHEMATOSUS REFLEX PROFILE Lab Routine Multiple joint pain 08/13/2022 7:52 AM EDT CYCLIC CITRULLINATED PEPTIDE IGG ANTIBODY Lab Routine Multiple joint pain 08/13/2022 7:52 AM EDT CBC WITH WBC DIFFERENTIAL AND ANEMIA REFLEX WORKUP Lab Routine Multiple joint pain 08/13/2022 7:52 AM EDT LYME DISEASE ANTIBODY SCREEN WITH REFLEX TO CONFIRMATION Lab Routine Multiple joint pain 08/13/2022 7:52 AM EDT ANTINUCLEAR ANTIBODY (FIORELLA) SCREEN, TOPHER Lab Routine Multiple joint pain 08/13/2022 7:52 AM EDT ANEMIA CBC Lab Routine Multiple joint pain 08/13/2022 7:52 AM EDT DIFFERENTIAL, AUTOMATED Lab Routine Multiple joint pain 08/13/2022 7:52 AM EDT ANEMIA REFLEX CHEMISTRY HOLD Lab Routine Multiple joint pain 08/13/2022 7:52 AM EDT LYME DISEASE ANTIBODY SCREEN Lab Routine Multiple joint pain 08/13/2022 7:52 AM EDT Scheduled Procedures Name Priority Associated [...] exists LUNG CANCER SCREENING - USE SMARTSET 18567 Completed 04/04/2022, 09/15/2020, 10/16/2019, Additional history exists [...] as of this encounter Visit Diagnoses Diagnosis Encounter for long-term (current) use of medications Encounter for long-term (current) use of other medications Dyslipidemia Other and unspecified hyperlipidemia Multiple joint pain Pain in joint, multiple sites documented in this encounter Care Teams Screener Operator Relationship Specialty Start Date End Date Rafa Vargas MD [address] [place] [address] PCP - General Family Medicine 02/28/17 documented as of this encounter
--- OUTSIDE RECORDS SUMMARY | 2023-01-04 12:36 | External Medical Summary ---
Author Name Unknown Address Unknown Organization [id number]:[facility] [place] [address] [place] [address] Laboratory Report Ordering Provider Test Date Status JEFFREY BLUM 08/13/2022 07:52:49 Final Observation Date Value Abnormality Reference (Units ) Status Triglyceride 08/13/2022 07:52:49 119 <=174 ( mg/dL) Final Triglyceride Reference Range s (mg/dL):
<150 Acceptable
150-174 Borderline high
175-499 High
>=500 Very high Cholesterol 08/13/2022 07:52:49 215 Above high normal <200 (mg/dL) Final Total Cholesterol Reference Ranges (mg/dL):
<200 Desirable
200-239 Borderline high
>=240 High HDL 08/13/2022 07:52:49 60 >49 (mg/dL ) Final HDL Cholesterol Reference Ra nges (mg/dL):
>=60 High (Desirable)
<50 Low (Undesirable) For Females
<40 Low (Undesirable) For Males NON-HDL CHOLESTEROL 08/13/2022 07:52:49 155 <=159 (mg/dL) Final Non-HDL Cholesterol Referenc e Range (mg/dL):
<100 Target level for high risk ASCVD patient
<130 Optimal for general population
130-159 Near optimal for general population
160-189 Borderline High
190-219 High
>=220 Very High LDL, (calculated) 08/13/2022 07:52:49 131 Above high n ormal <=129 (mg/dL) Final LDL Cholesterol Reference Ra nges (mg/dL):
<70 Target level for high risk ASCVD patient
<100 Optimal for general population
100-129 Near optimal for general population
130-159 Borderline high
160-189 High
>=190 Very high Performing Location [facility] [place] [address] [facility] [address]
--- OUTSIDE RECORDS SUMMARY | 2023-01-04 12:36 | External Medical Summary ---
Author Name Unknown Address Unknown Organization [id number]:[facility] [place] [address] [place] [address] Laboratory Report Ordering Provider Test Date Status PRANAY MARADIAGA 08/13/2022 07:52:49 Final Observation Date Value Abnormality Reference (Units ) Status CRP, low-sensitivity 08/13/2022 07:52:49 6 Above high normal <=5 (mg/L) Final Performing Location LABORATORY [facility] - [address] [facility] [address]
--- OUTSIDE RECORDS SUMMARY | 2023-01-04 12:36 | External Medical Summary ---
Author Name Unknown Address Unknown Organization K01:[facility] [place] - [facility] [address] [facility] [place] [address] Laboratory Report Ordering Provider Test Date Status PRANAY MARADIAGA 08/13/2022 07:52:49 Final Observation Date Value Abnormality Reference (Units ) Status Cyclic citrullinated peptide IgG Ab [Presence] in Serum 08/13/2022 07:52:49 Negative Negative Final Cyclic citrullinated peptide IgA+IgG Ab [Units/volume] in Serum or Plasma by Immunoassay 08/13/2022 07:52:49 0.5 <7 (U/mL) Final Performing Location LAB[facility] [place] - [facility] [address] [facility] [address]
--- OUTSIDE RECORDS SUMMARY | 2023-01-04 12:36 | External Medical Summary | Summary of Care ---
Author Name Unknown Organization [facility] Address [address] [place] [address] Phone [phone] Care Team Providers Care Bread Wrapping Machine Feeder Name Role Phone Rafa Vargas MD Primary Care Provider + Reason for Visit * Reason Onset Date Comments Advice 08/06/2022 Encounter Details Date Type Department Care Team Description 08/06/2022 Telephone Family Practice [facility] [address] [place] [address] Rafa Vargas MD [address] [place] [address] Advice Allergies Active Allergy Reactions Severity Noted [...] Active Additional Information Patient taking differently:3 mL FaymqbsshI5P PRN, Reported on 07/10/2022 Calcium 600+D3 Plus [...] @[facility] 10/13 colon WNL fracisco 10/[address] wNL fracisco 1y Feb 2016- son . 01/11 DR Ga-consider Rx/chief counsel re: of son Deviated nasal septum [...] mRNA, LNP-s, No Pre serve, 2-Dose Series ([employer]) 06/06/2021,11/28/2020,04/23/2020,07/2020 Covid-19, Mrna, Lnp-s, Pf, B ivalent, 30 Mcg, IM, 12 yrs and above ([employer]) 12/18/2021 H1N1 2009 Influenza, IM 02/03/2009 Pneumococcal [...] encounter Miscellaneous Notes * Telephone Encounter - Nichelel Kay LPN - 08/07/2022 7:40 AM EDT [...] [facility]. Pt is not aware why she needs the test. Please return call. documented in this encounter Plan of Treatment Upcoming Encounters Date Type Specialty Care Team Description 08/17/2022 Imaging Radiology 09/06/2022 Office Visit Family Medicine Dinora Zelaya CRNP [address] [place] [address] 10/31/2022 Office Visit Cardiology Smitha Mcdermott CRNP [address] [place] [address] Scheduled Procedures Name Priority Associated Diagnoses Date/Ti [...] exists LUNG CANCER SCREENING - USE SMARTSET [id number] Completed 04/04/2022, 09/15/2020, 10/16/2019, Additional history exists [...] filedocumented as of this encounter Care Teams Bread Wrapping Machine Feeder Relationship Specialty Start Date End Date Rafa Vargas MD [address] [place] [address] PCP - General Family Medicine 02/28/17 documented as of this encounter
--- OUTSIDE RECORDS SUMMARY | 2023-01-04 12:37 | External Medical Summary | Summary of Care ---
Author Name Unknown Organization [facility] Address [address] [place] [address] Phone [phone] Care Team Providers Care Tool Keeper Name Role Phone Rafa Vargas MD Primary Care Provider + Reason for Visit * Reason Onset Date Comments Advice 07/31/2022 Encounter Details Date Type Department Care Team Description 07/31/2022 Director Of Marketing Operations Telephone Family Practice [facility] [address] [address] Ludy Dumont, food service ambassador Allergies Active Allergy Reactions Severity Noted Date [...] Active Additional Information Patient taking differently:3 mL FwkmnyulnV6B PRN, Reported on 07/10/2022 Calcium 600+D3 Plus [...] Overview: Declines Shingrix. 2020 CT chest sched @[facility] 08/16 TTE normal EF Gr I hammonds dys @[facility] 10/13 colon WNL fracisco 5y 10/[address] wNL fracisco 1y Feb 2016- son . 01/11 DR Ga-consider Rx/international student counselor re: of son Deviated nasal septum [...] mRNA, LNP-s, No Pre serve, 2-Dose Series ([email or web address]) 06/06/2021,11/28/2020,04/23/2020,07/2020 Covid-19, Mrna, Lnp-s, Pf, B ivalent, 30 Mcg, IM, 12 yrs and above ([email or web address]) 12/18/2021 H1N1 2009 Influenza, IM 02/03/2009 Pneumococcal [...] encounter Miscellaneous Notes * Telephone Encounter - Nancy Aguilar - [...] Dinora Zelaya CRNP [address] [place] [address] 10/31/2022 Office Visit Cardiology Smitha Mcdermott CRNP [address] [place] [address] Scheduled Procedures Name Priority Associated Diagnoses Date/Ti [...] exists LUNG CANCER SCREENING - USE SMARTSET [id number] Completed 04/04/2022, 09/15/2020, 10/16/2019, Additional history exists [...] filedocumented as of this encounter Care Teams Tool Keeper Relationship Specialty Start Date End Date Rafa Vargas MD [address] [place] [address] PCP - General Family Medicine 02/28/17 documented as of this encounter
--- OUTSIDE RECORDS SUMMARY | 2023-01-04 12:37 | External Medical Summary | Summary of Care ---
Author Name Unknown Organization [facility] Address [address] [place] [address] Phone [phone] Care Team Providers Care Tunnel Drier Operator Name Role Phone Rafa Vargas MD Primary Care Provider + Reason for Visit * Reason Onset Date Comments case management 07/30/2022 Encounter Details Date Type Department Care Team Description 07/30/2022 Electric Motor Winder Telephone Family Practice [facility] [address] [facility] [place] [address] Ludy Dumont, retail management trainee Allergies Active Allergy Reactions Severity Noted Date Comments Oxycodone 09/17/2019 hives documented as of this encounter (statuses as of 07/30/2022) Medications Medication Sig Dispensed Refills Start Date [...] Active Additional Information Patient taking differently:3 mL [id number] PRN, Reported on 07/10/2022 Calcium 600+D3 Plus Minerals 600-800 MG-UNIT Oral Tablet Take by mouth daily. 0 Active Apixaban 5 MG Oral Tablet (Eliquis) Take 1 Tablet by mouth in the morning and 1 Tablet before bedtime. 68 Tablet 11 07/10/2022 Active documented as of this encounter (statuses as of 07/30/2022) Active Problems Problem Noted Date Paroxysmal atrial [...] Overview: Declines Shingrix. 2020 CT chest sched @[facility] 08/16 TTE normal EF Gr I hammonds dys @[facility] 10/13 colon WNL fracisco 5y 10/[address] wNL fracisco 1y Feb 2016- son . 01/11 DR Ga-consider Rx/counselor manager re: of son Deviated nasal septum 06/28/2016 History of tobacco use 04/19/2015 Overview: quit 03/29/15 COPD, group B, by GOLD 2017 classificati on 01/16/2011 Dyslipidemia HTN, goal below 130/80 Left rotator cuff tear documented as of this encounter (statuses as of 07/30/2022) Resolved Problems Problem Noted Date Resolved Date [...] as of this encounter (statuses as of 07/30/2022) Immunizations Name Administration Dates Next Due COVID-19 mRNA, LNP-s, No Pre serve, 2-Dose Series ([employer]) 06/06/2021,11/28/2020,04/23/2020,07/2020 Covid-19, Mrna, Lnp-s, Pf, B ivalent, 30 Mcg, IM, 12 yrs and above ([employer]) 12/18/2021 H1N1 2009 Influenza, IM 02/03/2009 Pneumococcal [...] Influenza, Split, I IV3, With Preserve, Inj 11/23/2014,12/07/2013,12/02/2012,1103/2010 TDAP (age 11 and older)([employer]) 10/16/2010 10/16/2020 [...] Telephone Encounter - Ludy Dumont RN - 07/30/2022 12:48 PM EDT 1. Follow-up Routine- returning VM from patient 2. Attempted Phone Call First Attempt 3. Call Outcome Left Voicemail/Message 4. Plan To attempt another outreach documented in this encounter Plan of Treatment Upcoming Encounters Date Type Specialty Care Team Description 07/31/2022 Imaging Radiology 09/06/2022 Office Visit Family Medicine Dinora Zelaya CRNP [address] [address] 10/31/2022 Office Visit Cardiology Smitha Mcdermott CRNP [address] [place] [address] Scheduled Procedures Name Priority Associated Diagnoses Date/Ti me COLONOSCOPY FLEXIBLE PROXIMAL DIAGNOSTIC Recall History of colon polyps Health Maintenance Due Date Last Done Comments Alpha-1 Antitrypsin 1968 Zoster Vaccines (1 of 2) 2000 DTaP,Tdap,and Td Vaccines (2 - Td or Tdap) 10/16/2020 10/16/2010, 09/21/2003, 02/25/1993 Mammogram 07/28/2022 07/28/2021, 07/26, 08/04/2019, Additional history [...] exists LUNG CANCER SCREENING - USE SMARTSET [address]9911 Completed 04/04/2022, 09/15/2020, 10/16/2019, Additional history exists [...] filedocumented as of this encounter Care Teams Tunnel Drier Operator Relationship Specialty Start Date End Date Rafa Vargas MD [address] [place] [address] PCP - General Family Medicine 02/28/17 documented as of this encounter
--- OUTSIDE RECORDS SUMMARY | 2023-01-04 12:37 | External Medical Summary | Summary of Care ---
Author Name Unknown Organization [facility] Address [address] [place] [address] Phone [phone] Care Team Providers Care Dumpling Machine Operator Name Role Phone Rafa Vargas MD Primary Care Provider + Encounter Details Date Type Department Care Team Description 07/31/2022 External Data Patient Risk Medial Allergies Active Allergy Reactions Severity Noted Date Comments Oxycodone 09/17/2019 hives documented as of this encounter (statuses as of 07/31/2022) Medications Medication Sig Dispensed Refills Start Date [...] Active Additional Information Patient taking differently:3 mL SvgcfatftW5T PRN, Reported on 07/10/2022 Calcium 600+D3 Plus Minerals 600-800 MG-UNIT Oral Tablet Take by mouth daily. 0 Active Apixaban 5 MG Oral Tablet (Eliquis) Take 1 Tablet by mouth in the morning and 1 Tablet before bedtime. 68 Tablet 11 07/10/2022 Active documented as of this encounter (statuses as of 07/31/2022) Active Problems Problem Noted Date Paroxysmal atrial [...] CT chest sched @[facility] 08/16 TTE normal EF Gr I hammonds dys @[facility] 10/13 colon WNL fracisco 5y 10/13 scree [...] as of this encounter (statuses as of 07/31/2022) Resolved Problems Problem Noted Date Resolved Date [...] as of this encounter (statuses as of 07/31/2022) Immunizations Name Administration Dates Next Due COVID-19 mRNA, LNP-s, No Pre serve, 2-Dose Series ([employer]) 06/06/2021,11/28/2020,04/23/2020,07/2020 Covid-19, Mrna, Lnp-s, Pf, B ivalent, 30 Mcg, IM, 12 yrs and above ([employer]) 12/18/2021 H1N1 2009 Influenza, IM 02/03/2009 Pneumococcal [...] Dinora Zelaya CRNP [address] [place] [address] 10/31/2022 Office Visit Cardiology Smitha Mcdermott CRNP [address] [place] [address] Scheduled Procedures Name Priority Associated Diagnoses Date/Ti [...] exists LUNG CANCER SCREENING - USE SMARTSET [address]392 Completed 04/04/2022, 09/15/2020, 10/16/2019, Additional history exists [...] filedocumented as of this encounter Care Teams Dumpling Machine Operator Relationship Specialty Start Date End Date Rafa Vargas MD [address] [place] [address] PCP - General Family Medicine 02/28/17 documented as of this encounter
--- OUTSIDE RECORDS SUMMARY | 2023-01-04 12:37 | External Medical Summary | Summary of Care ---
Author Name Unknown Organization [facility] Address [address] [place] [address] Phone [phone] Care Team Providers Care Public Health Teacher Name Role Phone Rafa Vargas MD Primary Care Provider + Reason for Visit * Reason Comments Medication Discussion Encounter Details Date Type Department Care Team Description 07/20/2022 Pharmacy Pharmacy Call Center [phone] [place] [address] Wb, Telepharmacy [facility] [address] [place] [address] Encounter for medication review*; Encounter for long-term (current) use of medications; Dyslipidemia Allergies Active Allergy Reactions Severity Noted Date Comments Oxycodone 09/17/2019 hives documented as of this encounter (statuses as of 07/20/2022) Medications Medication Sig Dispensed Refills Start Date [...] 200-62.5-25 MCG/ACT 180 Each 1 03/21/2022 Active Lovastatin 40 MG Oral Tablet Take 1 Tablet by mouth at bedtime. 90 Tablet 3 04/26/2022 Active Montelukast Sodium 10 MG Oral Tablet [...] Active Additional Information Patient taking differently:3 mL MuenmoldsP5O PRN, Reported on 07/10/2022 Calcium 600+D3 Plus Minerals 600-800 MG-UNIT Oral Tablet Take by mouth daily. 0 Active Apixaban 5 MG Oral Tablet (Eliquis) Take 1 Tablet by mouth in the morning and 1 Tablet before bedtime. 68 Tablet 11 07/10/2022 Active documented as of this encounter (statuses as of 07/20/2022) Active Problems Problem Noted Date Paroxysmal atrial [...] Overview: Declines Shingrix. 2020 CT chest sched @[facility] 08/16 TTE normal EF Gr I hammonds dys @[facility] 10/13 colon WNL fracisco 5y 10/[address] wNL fracisco 1y Feb 2016- son . 01/11 DR Ga-consider Rx/activities counselor re: of son Deviated nasal septum 06/28/2016 History of tobacco use 04/19/2015 Overview: quit 03/29/15 COPD, group B, by GOLD 2017 classificati on 01/16/2011 Dyslipidemia HTN, goal below 130/80 Left rotator cuff tear documented as of this encounter (statuses as of 07/20/2022) Resolved Problems Problem Noted Date Resolved Date [...] as of this encounter (statuses as of 07/20/2022) Immunizations Name Administration Dates Next Due COVID-19 mRNA, LNP-s, No Pre serve, 2-Dose Series ([employer]) 06/06/2021,11/28/2020,04/23/2020,07/2020 Covid-19, Mrna, Lnp-s, Pf, B ivalent Booster, 30 Mcg, IM, 12 yrs and above ([employer]) 12/18/2021 H1N1 2009 Influenza, IM 02/03/2009 Pneumococcal Conjugate Vacc, 13 Valent (Prevnar) 08/15/2015 Pneumococcal Polysaccharide PPV23 (Pneumovax) 05/31/2017,05/11/2008 Seasonal Influenza, Marci willard, 18 Yrs & Older 12/26/2017 Seasonal [...] as of this encounter Progress Notes * Nam Rapp, [facility] - 07/20/2022 2:05 PM EDT Images from the original note were not included. PHARMACY MTM PROGRESS NOTE [facility] [address] [facility] [place] [address] Service Delivery Delivery Method: Phone Outcome: CMR Completed Health Profile Current Conditions: Other (copd, blood clot prevention, general health, pain, cough, allergies,high blood pressure, high cholesterol, heartburn) Drug allergies & side effects: Review of patient's allergies indicates: Allergen Reactions Oxycodone hives Med List Home Medications Provider Albuterol Sulfate HFA 108 (90 Base) MCG/ACT Inhalation Aerosol Solution Rafa Vargas MD USE 2 INHALATIONS BY MOUTH EVERY 4 HOURS NEEDED FOR WHEEZING Associated Diagnoses: -- Apixaban 5 MG Oral Tablet (Eliquis) Juan M Evans, Take 1 Tablet by mouth in the morning and 1 Tablet before bedtime. Associated Diagnoses: -- Calcium 600+D3 Plus Minerals 600-800 MG-UNIT Oral Tablet History Per Patient Associated Diagnoses: -- Gabapentin 100 MG Oral Capsule (Neurontin) Rafa Vargas MD TAKE ONE CAPSULE BY MOUTH AT DINNER AND TWO CAPSULES ONE HOUR BEFORE BED Associated Diagnoses: -- guaiFENesin ER 600 MG Oral Tablet Extended Release 12 Hour (Mucinex) Rafa Vargas MD Take 2 Tablets by mouth in the morning and 2 Tablets before bedtime. Take with plenty of water. Do not cut, crush or chew. Associated Diagnoses: -- Ipratropium-Albuterol 0.5-2.5 (3) MG/3ML Inhalation Solution (Duoneb) Rafa Vargas MD Inhale 3 mL via nebulizer in the morning and 3 mL at noon and 3 mL in the evening and 3 mL before bedtime. Patient taking differently: Inhale 3 mL via nebulizer every 6 hours as needed. Associated Diagnoses: -- Levocetirizine Dihydrochloride 5 MG Oral Tablet Rafa Vargas MD TAKE 1 TABLET BY MOUTH IN THE EVENING Associated Diagnoses: -- Losartan Potassium 50 MG Oral Tablet (Cozaar) Rafa Vargas MD TAKE 1 TABLET BY MOUTH DAILY Associated Diagnoses: HTN, goal below 140/90 Lovastatin 40 MG Oral Tablet SALOMON Chin Take 1 Tablet by mouth at bedtime. Associated Diagnoses: -- Montelukast Sodium 10 MG Oral Tablet (Singulair) SALOMON Chin TAKE 1 TABLET BY MOUTH AT BEDTIME Patient taking differently: Take 1 Tablet by mouth in the morning. Associated Diagnoses: -- omeprazole (PRILOSEC) 20 MG CPDR Dannielle Strikcland PA-C Associated Diagnoses: Gastroesophageal reflux disease, esophagitis presence not specified oxygen IN GAS SALOMON Chin Use 2 L/min(Oxygen) as directed at bedtime. Associated Diagnoses: -- Notes: Electronically Signed by: SALOMON Callahan Trelegy Ellipta 200-62.5-25 MCG/ACT Aerosol Powder Breath Activated (Scthnokiufh-Pqptdkziecpe-Giwgipmmac) Rafa Vargas MD INHALE 1 INHALATION BY MOUTH IN THE MORNING Strength: 200-62.5-25 MCG/ACT Associated Diagnoses: -- TIPs None Action Plan 1. What type of item is this? Related to a current medication (Trelegy Ellipta) Describe the item for the patient takeaway: Swish and Spit Describe what the patient should do (for the patient takeaway): Your inhaler Telegy could put you at an increase risk for throat irritation or even throat fungal infections (called thrush). An easy way to keep your throat healthy is swishing and spitting with water after each use. 2. What type of item is this? Non-medication related Describe the item for the patient takeaway: Blood Pressure Monitoring Describe what the patient should do (for the patient takeaway): It is also important to monitoryour blood pressure regularly. Make sure to record your readings in a log and take them with you toyour appointments. Providing these readings to your healthcare providers can help them better control your blood pressure. Takeaway Service Information o Date CMR was completed: 07/20/2022 o Who was the recipient of the CMR service: Patient o Was the patient in a terminal operations manager care (LTC) facility when the CMR was completed? No o Pharmacist's availability for questions: Saturday-Saturday 8:00am-4:30pm Takeaway Information o Will the Patient Takeaway be sent to the Patient or someone else? Patient o Language Template for the Patient Takeaway: Kinyarwanda o Additional notes for the Patient Takeaway (optional): n/a I attest that I have reviewed and updated the patient's conditions, allergies, and medications to the best of my ability. Patient Access: Is patient utilizing [facility]? Yes Is patient utilizing [facility]? Yes Additional Call Notes 40 minute CMR Pt denied any issues with meds and appears adherent to meds Lipids due, ordered, prefers to walk-in. Doing well with Trelegy, minimal STEPHY/neb use. Check BP periodically in home, stable. Newly started Eliquis. Tolerating well. Nam Rapp [facility] Clinical Pharmacist Telepharmacy 07/20/2022, 2:05 PM documented in this encounter Plan of Treatment Upcoming Encounters Date Type Specialty Care Team Description 07/31/2022 Imaging Radiology 09/06/2022 Office Visit Family Medicine Dinora Zelaya CRNP [address] [place] [address] 10/31/2022 Office Visit Cardiology Smitha Mcdermott CRNP [address] [place] [address] Scheduled Orders Name Type Priority Associated Diagnoses Orde r Schedule LIPID PANEL WITH DIRECT LDL IF TG IS HIGH Lab Routine Encounter for long-term (current) use of medications Dyslipidemia Expected: 08/20/2022 (Approximate), Expires: 07/21/2023 Scheduled Procedures Name Priority Associated Diagnoses Date/Ti [...] and Over 10/04/2022 10/04/2021 GFR 03/02/2023 03/02/2022, 1002/2020, 12/05/2019, Additional history exists O2 ASSESSMENT COMPLETED [...] exists LUNG CANCER SCREENING - USE SMARTSET [id number] Completed 04/04/2022, 09/15/2020, 10/16/2019, Additional history exists [...] this encounter Visit Diagnoses Diagnosis Encounter for medication review- Primary Encounter for long-term (current) use of other medications Encounter for long-term (current) use of medications Encounter for long-term (current) use of other medications Dyslipidemia Other and unspecified hyperlipidemia documented in this encounter Care Teams Public Health Teacher Relationship Specialty Start Date End Date Rafa Vargas MD [address] [place] [address] PCP - General Family Medicine 02/28/17 documented as of this encounter
--- OUTSIDE RECORDS SUMMARY | 2023-01-04 12:37 | External Medical Summary | Summary of Care ---
Author Name Unknown Organization [facility] Address [address] [place] [address] Phone [phone] Care Team Providers Care Paint Roller Covers Supervisor Name Role Phone Rafa Vargas MD Primary Care Provider + Reason for Visit * Reason Onset Date Comments Advice 07/31/2022 Encounter Details Date Type Department Care Team Description 07/31/2022 Director Wholesale Telephone Family Practice [facility] [address] [facility] [address] Ludy Dumont, oil well pumper Allergies Active Allergy Reactions Severity Noted Date [...] Active Additional Information Patient taking differently:3 mL NqhzoxmaxN5O PRN, Reported on 07/10/2022 Calcium 600+D3 Plus [...] Overview: Declines Shingrix. 2020 CT chest sched @[facility] 08/16 TTE normal EF Gr I hammonds dys @[facility] 10/13 colon WNL fracisco 5y 10/[address] wNL fracisco 1y Feb 2016- son . 01/11 DR Ga-consider Rx/patent counsel re: of son Deviated nasal septum [...] mRNA, LNP-s, No Pre serve, 2-Dose Series ([employer]) 06/06/2021,11/28/2020,04/23/2020,07/2020 Covid-19, Mrna, Lnp-s, Pf, B ivalent, 30 Mcg, IM, 12 yrs and above ([employer]) 12/18/2021 H1N1 2009 Influenza, IM 02/03/2009 Pneumococcal [...] Dinora Zelaya CRNP [address] [place] [address] 10/31/2022 Office Visit Cardiology Smitha Mcdermott CRNP [address] [place] [address] Scheduled Procedures Name Priority Associated Diagnoses Date/Ti [...] exists LUNG CANCER SCREENING - USE SMARTSET [id number] Completed 04/04/2022, 09/15/2020, 10/16/2019, Additional history exists [...] filedocumented as of this encounter Care Teams Paint Roller Covers Supervisor Relationship Specialty Start Date End Date Rafa Vargas MD [address] [place] [address] PCP - General Family Medicine 02/28/17 documented as of this encounter
--- OUTSIDE RECORDS SUMMARY | 2023-01-04 12:37 | External Medical Summary | Summary of Care ---
Author Name Unknown Organization [facility] Address [address] [place] [address] Phone [phone] Care Team Providers Care Hair Boiler Operator Name Role Phone Rafa Vargas MD Primary Care Provider + Reason for Visit * Reason Onset Date Comments Advice 07/31/2022 Encounter Details Date Type Department Care Team Description 07/31/2022 Simulation Developer Telephone Family Practice [facility] [address] [facility] [address] Ludy Dumont, clerical and office support workers Allergies Active Allergy Reactions Severity Noted Date [...] Active Additional Information Patient taking differently:3 mL RlkkkeonnY8R PRN, Reported on 07/10/2022 Calcium 600+D3 Plus [...] Feb 2016- son . 01/11 DR Ga-consider Rx/juvenile counselor re: of son Deviated nasal septum [...] mRNA, LNP-s, No Pre serve, 2-Dose Series ([employer]) 06/06/2021,11/28/2020,04/23/2020,07/2020 Covid-19, Mrna, Lnp-s, Pf, B ivalent, 30 Mcg, IM, 12 yrs and above ([employer]) 12/18/2021 H1N1 2009 Influenza, IM 02/03/2009 Pneumococcal [...] Dinora Zelaya CRNP [address] [place] [address] 10/31/2022 Office Visit Cardiology Smitha Mcdermott CRNP [address] [place] [address] Scheduled Procedures Name Priority Associated Diagnoses Date/Ti [...] exists LUNG CANCER SCREENING - USE SMARTSET [id number] Completed 04/04/2022, 09/15/2020, 10/16/2019, Additional history exists [...] filedocumented as of this encounter Care Teams Hair Boiler Operator Relationship Specialty Start Date End Date Rafa Vargas MD [address] [place] [address] PCP - General Family Medicine 02/28/17 documented as of this encounter
--- OUTSIDE RECORDS SUMMARY | 2023-01-04 12:37 | External Medical Summary | Summary of Care ---
Author Name Unknown Organization [facility] Address [address] [place] [address] Phone [phone] Care Team Providers Care Pole Lift Operator Name Role Phone Rafa Vargas MD Primary Care Provider + Reason for Visit * Reason Onset Date Comments Advice 07/31/2022 Encounter Details Date Type Department Care Team Description 07/31/2022 Whizzer Telephone Family Practice [facility] [address] [facility] [address] Ludy Dumont, friction paint machine tender Allergies Active Allergy Reactions Severity Noted Date [...] Active Additional Information Patient taking differently:3 mL PcxopukpjU7F PRN, Reported on 07/10/2022 Calcium 600+D3 Plus [...] Overview: Declines Shingrix. 2020 CT chest sched @[facility] 08/16 TTE normal EF Gr I hammonds dys @[facility] 10/13 colon WNL fracisco 5y 10/[address] wNL fracisco 1y Feb 2016- son . 01/11 DR Ga-consider Rx/christian counselor re: of son Deviated nasal septum [...] mRNA, LNP-s, No Pre serve, 2-Dose Series ([employer] 06/06/2021,11/28/2020,04/23/2020,07/2020 Covid-19, Mrna, Lnp-s, Pf, B ivalent, 30 Mcg, IM, 12 yrs and above ([employer] 12/18/2021 H1N1 2009 Influenza, IM 02/03/2009 Pneumococcal [...] Dinora Zelaya CRNP [address] [place] [address] 10/31/2022 Office Visit Cardiology Smitha Mcdermott CRNP [address] [place] [address] Scheduled Procedures Name Priority Associated Diagnoses Date/Ti [...] exists LUNG CANCER SCREENING - USE SMARTSET [id number] Completed 04/04/2022, 09/15/2020, 10/16/2019, Additional history exists [...] filedocumented as of this encounter Care Teams Pole Lift Operator Relationship Specialty Start Date End Date Rafa Vargas MD [address] [place] [address] PCP - General Family Medicine 02/28/17 documented as of this encounter
--- OUTSIDE RECORDS SUMMARY | 2023-01-04 12:38 | External Medical Summary | Summary of Care ---
Author Name Unknown Organization [facility] Address [address] [place] [address] Phone [phone] Care Team Providers Care Marine Water Tender Name Role Phone Rafa Vargas MD Primary Care Provider + Reason for Visit * Reason Comments case management Encounter Details Date Type Department Care Team Description 07/18/2022 Internet WebmasterPolysomnographic [facility] [address] [place] [address] Ludy Dumont, RN Medical home patient encounter* Allergies Active Allergy Reactions Severity Noted Date Comments Oxycodone 09/17/2019 hives documented as of this encounter (statuses as of 07/18/2022) Medications Medication Sig Dispensed Refills Start Date [...] Active Additional Information Patient taking differently:3 mL JkzjasxgzI8O PRN, Reported on 07/10/2022 Calcium 600+D3 Plus Minerals 600-800 MG-UNIT Oral Tablet Take by mouth daily. 0 Active Apixaban 5 MG Oral Tablet (Eliquis) Take 1 Tablet by mouth in the morning and 1 Tablet before bedtime. 68 Tablet 11 07/10/2022 Active documented as of this encounter (statuses as of 07/18/2022) Active Problems Problem Noted Date Paroxysmal atrial fibrillation 3 Overview: 07/17 start eliquis Osteopenia of lumbar spine 03/09/2022 Status post total right knee replacement 08/13/2021 Nocturnal hypoxemia 11/18/2020 Ground glass opacity present on imaging of lung 08/25/2020 Centrilobular emphysema 08/25/2020 Basal cell carcinoma (BCC) of forehead 1 04/08/2018 Status post right hip replacement 2018 RLS (restless legs syndrome) 06/25/2017 Medical home patient encounter 7 Overview: Declines Shingrix. 2020 CT chest sched @[facility] 08/16 TTE normal EF Gr I hammonds dys @[facility] 10/13 colon WNL fracisco 5y 10/[address] wNL fracisco 1y Feb 2016- son . 01/11 DR Ga-consider Rx/certified travel counselor re: of son Deviated nasal septum 06/28/2016 History of tobacco use 04/19/2015 Overview: quit 03/29/15 COPD, group B, by GOLD 2017 classificati on 01/16/2011 Dyslipidemia HTN, goal below 130/80 Left rotator cuff tear documented as of this encounter (statuses as of 07/18/2022) Resolved Problems Problem Noted Date Resolved Date [...] as of this encounter (statuses as of 07/18/2022) Immunizations Name Administration Dates Next Due COVID-19 mRNA, LNP-s, No Pre serve, 2-Dose Series ([employer]) 06/06/2021,11/28/2020,04/23/2020,07/2020 Covid-19, Mrna, Lnp-s, Pf, B ivalent Booster, 30 Mcg, IM, 12 yrs and above ([employer]) 12/18/2021 H1N1 2009 Influenza, IM 02/03/2009 Pneumococcal [...] as of this encounter Progress Notes * Ludy Dumont RN - 07/18/2022 11:58 AM EDT 1. Follow-up Routine 2. Attempted Phone Call Third Attempt 3. Call Outcome Left Voicemail/Message 4. Plan To send letter documented in this encounter Plan of Treatment Upcoming Encounters Date Type Specialty Care Team Description 07/31/2022 Imaging Radiology 09/06/2022 Office Visit Family Medicine Dinora Zelaya CRNP [address] [place] [address] 10/31/2022 Office Visit Cardiology Smitha Mcdermott CRNP [address] [place] [address] Scheduled Procedures Name Priority Associated Diagnoses Date/Ti [...] exists LUNG CANCER SCREENING - USE SMARTSET [id number] Completed 04/04/2022, 09/15/2020, 10/16/2019, Additional history exists [...] as of this encounter Visit Diagnoses Diagnosis Medical home patient encounter- Primary Other specified examination documented in this encounter Care Teams Marine Water Tender Relationship Specialty Start Date End Date Rafa Vargas MD [address] [place] [address] PCP - General Family Medicine 02/28/17 documented as of this encounter
--- OUTSIDE RECORDS SUMMARY | 2023-01-04 12:38 | External Medical Summary | Summary of Care ---
Author Name Unknown Organization [facility] Address [address] [place] [address] Phone [phone] Care Team Providers Care Bear Keeper Name Role Phone Rafa Vargas MD Primary Care Provider + Reason for Visit * Reason Onset Date Comments case management 07/18/2022 Encounter Details Date Type Department Care Team Description 07/18/2022 Fast Food Shift Supervisor Telephone Family Practice [facility] 132 [facility] [place] [address] Ludy Dumont, wildlife management professor Allergies Active Allergy Reactions Severity Noted Date Comments Oxycodone 09/17/2019 hives documented as of this encounter (statuses as of 07/19/2022) Medications Medication Sig Dispensed Refills Start Date [...] Active Additional Information Patient taking differently:3 mL ThiaxvfxdO9Q PRN, Reported on 07/10/2022 Calcium 600+D3 Plus Minerals 600-800 MG-UNIT Oral Tablet Take by mouth daily. 0 Active Apixaban 5 MG Oral Tablet (Eliquis) Take 1 Tablet by mouth in the morning and 1 Tablet before bedtime. 68 Tablet 11 07/10/2022 Active documented as of this encounter (statuses as of 07/19/2022) Active Problems Problem Noted Date Paroxysmal atrial fibrillation 05/16/202 3 Overview: 07/17 start eliquis Osteopenia of [...] [facility] 10/13 colon WNL fracisco y 10/[address] wNL fracisco 1y Feb 2016- son . 01/11 DR Ga-consider Rx/career development counselor re: of son Deviated nasal septum 06/28/2016 History of tobacco use 04/19/2015 Overview: quit 03/29/15 COPD, group B, by GOLD 2017 classificati on 01/16/2011 Dyslipidemia HTN, goal below 130/80 Left rotator cuff tear documented as of this encounter (statuses as of 07/19/2022) Resolved Problems Problem Noted Date Resolved Date [...] as of this encounter (statuses as of 07/19/2022) Immunizations Name Administration Dates Next Due COVID-19 mRNA, LNP-s, No Pre serve, 2-Dose Series ([employer]) 06/06/2021,11/28/2020,04/23/2020,07/2020 Covid-19, Mrna, Lnp-s, Pf, B ivalent Booster, 30 Mcg, IM, 12 yrs and above ([employer]) 12/18/2021 H1N1 2009 Influenza, IM 02/03/2009 Pneumococcal [...] Telephone Encounter - Ludy Dumont RN - 07/19/2022 12:49 PM EDT Spoke with patient, gave recommendations, she would like to try acetaminophen 1,000 mg TID, She said she would be agreeable to PT once pain is better controlled. She will call and let Us know if thisis not helpful, and made aware would likely need appt to be evaluated then. Discussed not using more than 3G max a day. * Telephone Encounter - Rafa Vargas MD - 07/18/2022 10:27 PM EDT Please let her know absolutely normal to have increased pain since stopping diclofenac. This may becontributing to balance issues. Ok to take 2 500mg APAP (1000mg) TID for pain , OTC. I can also refer her to PT to help with pain/strength/balance---let me know if wants referral. Can be very helpful If not helpful, please make f/u appt w/S Javier bernstein fracisco * Telephone Encounter - Ludy Dumont RN - 07/18/2022 3:46 PM EDT CM Progress note S: Patient called in to clinic to provide update, she reports that she has been feeling off for a couple of weeks. States it is hard to describe, but she does not feel well. she had to stop her diclofenac when she started eliquis. She is having headaches, feels off balance, when she gets up to stand feels like she is going to fall forward. Has not had an falls, stays near to try to prevent falls. Is having significant pain in knees and even back that was not previously a problem. She struggles to get up after sitting. Went to watch a play yesterday and it took 2 people to assist her in getting up when the show was done. Denies swelling in knees or ankles/feet. Does note a lump on right hand, middle finger that aches. Is eating okay, drinking plenty of water. No visual changes. No concerns with bowel or bladder, voids frequently. States " I may have had more arthritis than I knew". Wonders if stopping diclofenac may be contributing? No sick symptoms, fevers, etc. O: phone call follow up A: Alert and oriented P: Message to PCP for advice, or if any lab work would be appropriate to complete for symptoms. Dr. Vargas- Please advise? Thank you documented in this encounter Plan of Treatment Upcoming Encounters Date Type Specialty Care Team Description 07/31/2022 Imaging Radiology 09/06/2022 Office Visit Family Medicine Dinora Zelaya CRNP [address] [place] [address] 10/31/2022 Office Visit Cardiology Smitha Mcdermott CRNP [address] [place] [address] Scheduled Procedures Name Priority Associated Diagnoses Date/Ti [...] exists LUNG CANCER SCREENING - USE SMARTSET [id number] Completed 04/04/2022, 09/15/2020, 10/16/2019, Additional history exists [...] filedocumented as of this encounter Care Teams Bear Keeper Relationship Specialty Start Date End Date Rafa Vargas MD [address] [place] [address] PCP - General Family Medicine 02/28/17 documented as of this encounter
--- OUTSIDE RECORDS SUMMARY | 2023-01-04 12:38 | External Medical Summary | Summary of Care ---
Author Name Unknown Organization [facility] Address [address] [place] [address] Phone [phone] Care Team Providers Care Circuit Judge Name Role Phone Rafa Vargas MD Primary Care Provider + Reason for Visit * Reason Comments case management Encounter Details Date Type Department Care Team Description 07/18/2022 Nurses SuperintendentPiano Player [facility] [address] [place] [address] Ludy Dumont, RN Medical home [...] Active Additional Information Patient taking differently:3 mL [id number] PRN, Reported on 07/10/2022 Calcium 600+D3 Plus [...] Feb 2016- son . 01/11 DR Ga-consider Rx/evp general counsel re: of son Deviated nasal septum [...] mRNA, LNP-s, No Pre serve, 2-Dose Series (Veodin) 06/06/2021,11/28/2020,04/23/2020,07/2020 Covid-19, Mrna, Lnp-s, Pf, B ivalent Booster, 30 Mcg, IM, 12 yrs and above (Veodin) 12/18/2021 H1N1 2009 Influenza, IM 02/03/2009 Pneumococcal [...] Dinora Zelaya CRNP [address] [place] [address] 10/31/2022 Office Visit Cardiology Smitha Mcdermott CRNP [address] [place] [address] Scheduled Procedures Name Priority Associated Diagnoses Date/Ti [...] exists LUNG CANCER SCREENING - USE SMARTSET 24150 Completed 04/04/2022, 09/15/2020, 10/16/2019, Additional history exists [...] examination documented in this encounter Care Teams Circuit Judge Relationship Specialty Start Date End Date Rafa Vargas MD [address] [place] [address] PCP - General Family Medicine 02/28/17 documented as of this encounter
--- OUTSIDE RECORDS SUMMARY | 2023-01-04 12:38 | External Medical Summary | Summary of Care ---
Author Name Unknown Organization [facility] Address [address] [place] [address] Phone [phone] Care Team Providers Care Movie Actor Name Role Phone Rafa Vargas MD Primary Care Provider + Reason for Visit * Reason Onset Date Comments Health Maintenance 07/05/2022 Encounter Details Date Type Department Care Team Description 07/05/2022 Telephone Family Practice [facility] [address] [place] [address] Rafa Vargas MD [address] [place] [address] Health Maintenance Allergies Active Allergy Reactions Severity Noted Date Comments Oxycodone 09/17/2019 hives documented as of this encounter (statuses as of 07/05/2022) Medications Medication Sig Dispensed Refills Start Date [...] FOR WHEEZING 54 g 1 03/21/2022 Active Diclofenac Sodium 75 MG Oral Tablet Delayed Release (Voltaren) Take 1 Tablet by mouth in the morning and 1 Tablet before bedtime. With food.. 180 Tablet 1 03/21/2022 Active Losartan Potassium 50 MG [...] mouth at bedtime. 90 Tablet 3 04/26/2022 3 Active predniSONE 10 MG Oral Tablet (Deltasone)Indication s:COPD exacerbation (HCC) Take 5 tabs for 2 days, 4 tabs for 2 days, 3 tabs for 2 days, 2 tabs for 2 days 1 tab for 2 days 30 Tablet 0 05/01/2022 Active Montelukast Sodium 10 MG Oral Tablet (Singulair) TAKE 1 TABLET BY MOUTH AT BEDTIME 90 Tablet 3 05/06/2022 Active Gabapentin 100 MG Oral Capsule (Neurontin) TAKE ONE CAPSULE BY MOUTH AT DINNER AND TWO CAPSULES ONE HOUR BEFORE BED 270 Capsule 3 05/07/2022 Active Ipratropium-Albuterol 0.5-2.5 (3) MG/3ML Inhalation Solution (Duoneb) Inhale 3 mL via nebulizer in the morning and 3 mL at noon and 3 mL in the evening and 3 mL before bedtime. 1080 mL 1 05/09/2022 Active Potassium Chloride ER 10 MEQ Oral Capsule Extended Release 0 05/23/2022 Active documented as of this encounter (statuses as of 07/05/2022) Active Problems Problem Noted Date Osteopenia of lumbar spine 03/09/2022 Status post [...] Feb 2016- son . 01/11 DR Ga-consider Rx/vocational counselor re: of son Deviated nasal septum 06/28/2016 History of tobacco use 04/19/2015 Overview: quit 03/29/15 COPD, group B, by GOLD 2017 classificati on 01/16/2011 Dyslipidemia HTN, goal below 130/80 Left rotator cuff tear documented as of this encounter (statuses as of 07/05/2022) Resolved Problems Problem Noted Date Resolved Date [...] as of this encounter (statuses as of 07/05/2022) Immunizations Name Administration Dates Next Due COVID-19 mRNA, LNP-s, No Pre serve, 2-Dose Series (Hexagram 49) 06/06/2021,11/28/2020,04/23/2020,07/2020 Covid-19, Mrna, Lnp-s, Pf, B ivalent Booster, 30 Mcg, IM, 12 yrs and above (Hexagram 49) 12/18/2021 H1N1 2009 Influenza, IM 02/03/2009 Pneumococcal [...] encounter Miscellaneous Notes * Telephone Encounter - Shona Catalan LPN - 07/05/2022 1:04 PM EDT Care Gaps Comprehensive Care Outreach Last Office/Telemedicine Visit: 05/30/2022 (in office), 10/15/2019 (telemedicine) Next Office Visit: 09/06/2022 Hemoglobin AIC Results: No results found for: HEMOGLOBIN A1C Reviewed Health Maintenance below: Health Maintenance Topic Date Due Alpha-1 Antitrypsin Never done Zoster Vaccines (1 of 2) Never done DTaP,Tdap,and Td Vaccines (2 - Td or Tdap) 10/16/2020 Mammogram 07/28/2022 DXA Scan 09/13/2022 Depression Screening, Annual for Pts 12 and Over 10/04/2022 Mamm Chelle scheduled dexa August declined Care Gap Outreach Action Taken: Spoke to patient documented in this encounter Plan of Treatment Upcoming Encounters Date Type Specialty Care Team Description 07/10/2022 Office Visit Cardiology Juan M Evans, [address] [place] [address] 07/31/2022 Imaging Radiology 09/06/2022 Office Visit Family Medicine Dinora Zelaya CRNP [address] [place] [address] Scheduled Orders Name Type Priority Associated Diagnoses Orde r Schedule MAMMOGRAM SCREENING HUEY BILATERAL Medical Imaging Routine Encounter for screening mammogram for malignant neoplasm of breast Expected: 07/05/2022, Expires: 08/06/2023 Scheduled Procedures Name Priority Associated Diagnoses Date/Ti [...] Pts 12 and Over 10/04/2022 10/04/2021 GFR - Renal Function 03/02/2023 03/02/2022, 11/25/2020, 12/05/2019, Additional history exists O2 ASSESSMENT COMPLETED IN PAST YEAR FOR COPD 05/31/2023 05/30/2022 COLONOSCOPY-EVERY 5 YRS AGES 18-100 10/10/2023 10/09/2018, 10/09/2018, 06/04/2013, Additional history exists Albumin/Creatinine Ratio 03/02/2025 03/02/2022, 02/2020 Lipid Panel 11/25/2025 11/25/2020, 11/25, 06/10/2018, Additional history exists Pneumococcal Vaccine: 65+ Years Completed 05/31/2017, 08/15/2015, 05/11/2008 Influenza Vaccine (FLU shot) Completed , 11/18/2020, 11/30/2019, Additional history exists COVID-19 Vaccine Completed 12/18/2021, 01/2022, 06/06/2021, Additional history exists LUNG CANCER SCREENING - USE SMARTSET 94216 Completed 04/04/2022, 09/15/2020, 10/16/2019, Additional history exists [...] this encounter Visit Diagnoses Diagnosis Encounter for screening mammogram for malignant neoplasm of breast- Primary Other screening mammogram documented in this encounter Care Teams Movie Actor Relationship Specialty Start Date End Date Rafa Vargas MD [address] [place] [address] PCP - General Family Medicine 02/28/17 documented as of this encounter
--- OUTSIDE RECORDS SUMMARY | 2023-01-04 12:38 | External Medical Summary | Summary of Care ---
Author Name Unknown Organization [facility] Address [address] [place] [address] Phone [phone] Care Team Providers Care Composing Room Supervisor Name Role Phone Rafa Vargas MD Primary Care Provider + Reason for Visit * Reason Comments NEW PATIENT * Evaluate & Treat - Unlimited Visits (Within 10 days (routine)) - Authorized Specialty Diagnoses / Procedures Referred By Contact Referred To Contact Cardiovascular Medicine / Cardiology Diagnoses Abnormal patient-activated cardiac event monitor Rafa Vargas MD [address] [place] [address] Referral ID Status Reason Start Date Expiration Date Visits Requested Visits Authorized [id number] Authorized Specialty Services Required 06/22/[phone] Encounter Details Date Type Department Care Team Description 07/10/2022 Office Visit Cardiology, [facility] [address] [place] [address] Juan M Evans DO [address] [place] [address] Dyslipidemia* Allergies Active Allergy Reactions Severity Noted Date Comments Oxycodone 09/17/2019 hives documented as of this encounter (statuses as of 07/10/2022) Medications Medication Sig Dispensed Refills Start Date [...] 200-62.5-25 MCG/ACT 180 Each 1 3 Active Lovastatin 40 MG Oral Tablet Take 1 Tablet by mouth at bedtime. 90 Tablet 3 3 07/26/19 23 Active Montelukast Sodium 10 MG Oral Tablet [...] Active Additional Information Patient taking differently:3 mL [id number] PRN, Reported on 07/10/2022 Calcium 600+D3 Plus Minerals 600-800 MG-UNIT Oral Tablet Take by mouth daily. 0 Active Apixaban 5 MG Oral Tablet (Eliquis) Take 1 Tablet by mouth in the morning and 1 Tablet before bedtime. 68 Tablet 11 3 Active Diclofenac Sodium 75 MG Oral Tablet Delayed Release (Voltaren) Take 1 Tablet by mouth in the morning and 1 Tablet before bedtime. With food.. 180 Tablet 1 3 07/11/19 23 Discontinu ed(Patient preference /discontin uation) predniSONE 10 MG Oral Tablet (Deltasone)Indicatio ns:COPD exacerbation (HCC) Take 5 tabs for 2 days, 4 tabs for 2 days, 3 tabs for 2 days, 2 tabs for 2 days 1 tab for 2 days 30 Tablet 0 3 07/11/19 23 Discontinu ed(End of Procedure) Potassium Chloride ER 10 MEQ Oral Capsule Extended Release 0 3 07/11/19 23 Discontinu ed(Patient preference /discontin uation) documented as of this encounter (statuses as of 07/10/2022) Active Problems Problem Noted Date Osteopenia of [...] Feb 2016- son . 01/11 DR Ga-consider Rx/day camp counselor re: of son Deviated nasal septum 06/28/2016 History of tobacco use 04/19/2015 Overview: quit 03/29/15 COPD, group B, by GOLD 2017 classificati on 01/16/2011 Dyslipidemia HTN, goal below 130/80 Left rotator cuff tear documented as of this encounter (statuses as of 07/10/2022) Resolved Problems Problem Noted Date Resolved Date [...] as of this encounter (statuses as of 07/10/2022) Immunizations Name Administration Dates Next Due COVID-19 mRNA, LNP-s, No Pre serve, 2-Dose Series (Pfizer) 06/06/2021,11/28/2020,04/23/2020,07/2020 Covid-19, Mrna, Lnp-s, Pf, B ivalent [...] Sign Reading Time Taken Comments Blood Pressure 124/82 07/10/2022 10:48 AM EDT Pulse 76 07/10/2022 10:48 AM EDT Temperature - - Respiratory Rate 16 07/10/2022 10:48 AM EDT Oxygen Saturation 95% 07/10/2022 10:48 AM EDT Inhaled Oxygen Concentration - - Weight 80.6 kg (177 lb 9.6 oz) 07/10/2022 10:48 AM EDT Height - - Body Mass Index 31.71 03/09/2022 9:44 AM EST documented in this encounter Progress Notes * Juan M Evans, DO - 07/10/2022 11:21 AM EDT Cardiology Outpatient Consultation Portillo Escudero is a 72 year old female referred by Rafa Vargas MD who is seen in consultation for arrhythmia. The referring physician has requested evaluation for possible PAF. HPI: This is a 72-year-old female who is with her today. Recently she was in a good state of health. 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 Standing for a long time is very uncomfortable for her due to knee replacements. She began to have an ill feeling and eventually passed out. She was sent to the Emergency Department whereshe was admitted to [facility]. She had an extensive workup there including a dobutamine stress echocardiogram that was negative for ischemia or other significant findings. While in the hospital she was ontelemetry with no significant arrhythmias. This event occurred over month ago and she is had no additional episodes. When she was discharged from the hospital it was felt that she had a vasovagal event. Post discharge, she wore a Zio monitor which revealed frequent runs of short SVT which was consistent with PAF. She denies symptoms of heart palpitations or tachycardia. No orthopnea or progressive shortness of breath. No activity related chest pain. 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 H/O adenomatous polyp of colon 09/10/2012 History of tobacco use 04/19/2015 quit 03/29/15 HTN, goal below 140/90 Left rotator cuff tear Menopause Mixed dyslipidemia Morbid obesity, unspecified obesity type ([facility]) 05/31/2017 RLS (restless legs syndrome) 06/25/2017 Status post right hip replacement 12/03/2018 Status post total right knee replacement 08/13/2021 Patient Active Problem List Diagnosis Code COPD, group B, by GOLD 2017 classification ([facility]) J44.9 Dyslipidemia E78.5 History of tobacco use Z87.891 Deviated nasal septum J34.2 HTN, goal below 130/80 I10 Medical home patient encounter Z00.8 RLS (restless legs syndrome) G25.81 Left rotator cuff tear M75.102 Status post right hip replacement Z96.641 Basal cell carcinoma (BCC) of forehead C44.319 Ground glass opacity present on imaging of lung R91.8 Centrilobular emphysema ([facility]) J43.2 Nocturnal hypoxemia G47.34 Status post total right knee replacement Z96.651 Osteopenia of lumbar spine M85.88 Past Surgical History: Procedure Laterality Date ARTHROPLASTY KNEE TOTAL Right 08/11/2021 Dr Oneil [facility] CATARACT SURGERY,COMPLEX Left 08/2018 Dr Alexis CATARACT SURGERY,COMPLEX Right 08/2018 Dr Alexis COLONOSCOPY W/ BIOPSY (RECTUM) 08/12/2007 adenomatous, repeat in 3years COLONOSCOPY, DIAGNOSTIC (RECTUM) 06/04/2013 COLONOSCOPY FLEXIBLE PROXIMAL DIAGNOSTIC performed by Ida [facility]ples DO at [facility] COLONOSCOPY, DIAGNOSTIC (RECTUM) 10/09/2018 diverticulosis, repeat 5 yrs/COLONOSCOPY FLEXIBLE PROXIMAL DIAGNOSTIC performed by Ida Staples DO at [facility] COLORECTAL CANCER SCREEN; COLON 1999 normal, repeat in 2004 LIGATE/CUT OVIDUCT(S) Tubal Ligation SHOULDER ARTHROSCOPY SURGERY Left 07/11/2017 Dr Oneil rotator cuff repair TOTAL HIP REPLACEMENT & PROSTHESIS Right 03/2018 Dr Oneil Family History Problem Relation Age of Onset Rheum arthritis Sister Lupus Sister Psoriasis Sister Stroke Grandfather (Maternal) Neurological Disorder Son 1997. spinal tumor surg- paralysis- 03/13. Hypertension Grandmother (Maternal) Stroke Grandmother (Maternal) Heart Disorder Grandmother (Maternal) Lung Disorder Mother Diabetes Mother Heart Disorder Mother CABG, aortic aneurysm COPD Mother COPD Grandfather (Paternal) Colon cancer Father 52 Cancer Grandmother (Paternal) live to 94 Diabetes Brother Obesity Brother 475# Social History Tobacco Use Smoking status: Former Packs/day: 1.00 Years: 49.00 Pack years: 49.00 Types: Cigarettes Quit date: 03/29/2015 Years since quittin.2 Smokeless tobacco: Never Vaping Use Vaping Use: Never used Substance Use Topics Alcohol use: Yes Comment: occ Drug use: No Review of patient's allergies indicates: Allergen Reactions Oxycodone hives Current Outpatient Medications Medication Sig Dispense Refill omeprazole (PRILOSEC) 20 MG CPDR Take 1 Capsule by mouth in the morning. 1 hour before the first meal of the day. 30 Cap 5 oxygen IN GAS Use 2 L/min(Oxygen) as directed at bedtime. 1 Each 0 Albuterol Sulfate HFA 108 (90 Base) MCG/ACT Inhalation Aerosol Solution USE 2 INHALATIONS BY MOUTH EVERY 4 HOURS NEEDED FOR WHEEZING 54 g 1 Losartan Potassium 50 MG Oral Tablet (Cozaar) TAKE 1 TABLET BY MOUTH DAILY 90 Tablet 1 guaiFENesin ER 600 MG Oral Tablet Extended Release 12 Hour (Mucinex) Take 2 Tablets by mouth inthe morning and 2 Tablets before bedtime. Take with plenty of water. Do not cut, crush or chew. 360Tablet 3 Levocetirizine Dihydrochloride 5 MG Oral Tablet TAKE 1 TABLET BY MOUTH IN THE EVENING 90 Tablet2 Trelegy Ellipta 200-62.5-25 MCG/ACT Aerosol Powder Breath Activated (Gxrfbwsupuh-Fctkbgjsqppz-Eafmsdlhba) INHALE 1 INHALATION BY MOUTH IN THE MORNING Strength: 200-62.5-25 MCG/ACT 180 Each 1 Lovastatin 40 MG Oral Tablet Take 1 Tablet by mouth at bedtime. 90 Tablet 3 Montelukast Sodium 10 MG Oral Tablet (Singulair) TAKE 1 TABLET BY MOUTH AT BEDTIME (Patient taking differently: Take 1 Tablet by mouth in the morning.) 90 Tablet 3 Gabapentin 100 MG Oral Capsule (Neurontin) TAKE ONE CAPSULE BY MOUTH AT DINNER AND TWO CAPSULESONE HOUR BEFORE BED 270 Capsule 3 Ipratropium-Albuterol 0.5-2.5 (3) MG/3ML Inhalation Solution (Duoneb) Inhale 3 mL via nebulizerin the morning and 3 mL at noon and 3 mL in the evening and 3 mL before bedtime. (Patient taking differently: Inhale 3 mL via nebulizer every 6 hours as needed.) 1080 mL 1 Calcium 600+D3 Plus Minerals 600-800 MG-UNIT Oral Tablet Take by mouth daily. Apixaban 5 MG Oral Tablet (Eliquis) Take 1 Tablet by mouth in the morning and 1 Tablet before bedtime. 68 Tablet 11 No current facility-administered medications for this visit. ROS: Review of Systems: See HPI for pertinent positives. All other review of systems is negative. PHYSICAL EXAMINATION BP 124/82 (BP Site: Left Arm, BP Position: Sitting, BP Cuff Size: Regular) | Pulse 76 | Resp 16 | Wt 80.6 kg (177 lb 9.6 oz) | LMP 05/20/1999 | SpO2 95% | BMI 31.71 kg/m | BSA 1.89 m Body mass index is 31.71 kg/m. General: no acute distress and stated age Head: normocephalic, no masses, lesions, tenderness or abnormalities Eyes: conjunctiva are pink and non-injected, sclera clear Neck: supple, no adenopathy, no bruits, normal jugular venous pulse, no hepatojugular reflux Chest: normal shape and normal respiratory effort Lungs: clear to auscultation and percussion Cardiac Exam: - regular rate & rhythm, no murmurs gallops or rubs - normal S1, normal S2 Pulses: 2(+) throughout Abdomen: abdomen soft, non-tender, no abnormal masses and no hepatosplenomegaly Musculoskeletal: no gait disturbance, no joint inflammation, no deforming arthritis Extremities: no edema and no cyanosis Neuro: grossly normal exam Laboratory Data Review: EKG today is within normal limits Impression: 1. Paroxysmally atrial fibrillation 2. Vasovagal syncope 3. COPD related to cigarette smoking Plan: I had a long discussion with the patient and her today. I explained the pathophysiology of atrial fibrillation including stroke risk. Utilizing the Antony Vasc score of 3, the indication would be that the patient should be started on anticoagulation. The patient was agreeable and she will start Eliquis 5 mg twice daily. At this point she is not very symptomatic in regard to the PAF and I wou ld recommend no additional medications. I think the syncopal event was consistent with a vasovagal episode. In any case, I plan follow-up again in 3 months to monitor progress. This chart was completed in part utilizing [employer] Speech Voice Recognition Software. Grammatical errors, random word insertions, prounoun errors, and incomplete sentences are an occasional consequence of this system due to software limitations, ambient noise, and hardware issues. Any formal questions or concerns about the content, text, or information contained within the body of this dictation should be directly addressed to the provider for clarification. I spent a total of 40-54 minutes (exact time 40 mins) on the date of service in preparation, delivery, and documentation of the care provided to Niya Escudero excluding any time spent inthe performance of separately billed services. Juan M Evans DO Cardiology, [address] [address] 07/10/2022 documented in this encounter Nursing Notes * Lavern Ramesh CMA - 07/10/2022 10:46 AM EDT Examination Room: 16 Name: Niya Escudero Date of : (1950). Reason for Visit: New patient referral for abnormal Zio Interim Hospitalization(s): [facility] d/c 05/23/22 syncope Problems/Concerns: Some lightheadedness with quick positional changes Chest Pain/SOB: Denies CP or SOB [facility] Discussed: No [facility] is a way you can talk to your provider online through e-mail. Would you like to sign up? I can activate it for you? ALREADY ACTIVE Patient was instructed to not get up on the exam table until directed and assisted by their provider; patient is to remain seated in the chair/ wheelchair/ exam table for fall prevention and safety reasons. Patient is aware to have assistance to step down off exam table with personnel. Patient voiced full comprehension of instructions. documented in this encounter Plan of Treatment Upcoming Encounters Date Type Specialty Care Team Description 07/31/2022 Imaging Radiology 09/06/2022 Office Visit Family Medicine Dinoar Zelaya CRNP [address] [place] [address] 10/31/2022 Office Visit Cardiology Smitha Mcdermott CRNP [address] [place] [address] Scheduled Orders Name Type Priority Associated Diagnoses Orde r Schedule EKG EKG Routine Dyslipidemia Ordered: 07/10/2022 Scheduled Procedures Name Priority Associated Diagnoses Date/Ti [...] Additional history exists Albumin/Creatinine Ratio 03/02/2025 03/02/2022, 10/0 02/2020 Lipid Panel 11/25/2025 11/25/2020, 11/25, 06/10/2018, Additional history exists Pneumococcal Vaccine: 65+ Years Completed 05/31/2017, 08/15/2015, 05/11/2008 Influenza Vaccine (FLU shot) Completed , 11/10/2021, 11/18/2020, Additional history exists COVID-19 Vaccine Completed 12/18/2021, 01/2022, 06/06/2021, Additional history exists LUNG CANCER SCREENING - USE SMARTSET 13290 Completed 04/04/2022, 09/15/2020, 10/16/2019, Additional history exists [...] as of this encounter Visit Diagnoses Diagnosis Dyslipidemia- Primary Other and unspecified hyperlipidemia documented in this encounter Care Teams Composing Room Supervisor Relationship Specialty Start Date End Date Rafa Vargas MD [address] [place] [address] PCP - General Family Medicine 02/28/17 documented as of this encounter"
--- OUTSIDE RECORDS SUMMARY | 2023-01-04 12:38 | External Medical Summary | Summary of Care ---
Author Name Unknown Organization [facility] Address [address] [place] [address] Phone [phone] Care Team Providers Care Track Repairer Name Role Phone Rafa Vargas MD Primary Care Provider + Reason for Visit * Reason Comments case management Encounter Details Date Type Department Care Team Description 07/13/2022 Banquet LeadReimbursement Counselor [facility] [address] [place] [address] Ludy Dumont, RN Medical home patient encounter* Allergies Active Allergy Reactions Severity Noted Date Comments Oxycodone 09/17/2019 hives documented as of this encounter (statuses as of 07/13/2022) Medications Medication Sig Dispensed Refills Start Date [...] Active Additional Information Patient taking differently:3 mL [id number] PRN, Reported on 07/10/2022 Calcium 600+D3 Plus Minerals 600-800 MG-UNIT Oral Tablet Take by mouth daily. 0 Active Apixaban 5 MG Oral Tablet (Eliquis) Take 1 Tablet by mouth in the morning and 1 Tablet before bedtime. 68 Tablet 11 07/10/2022 Active documented as of this encounter (statuses as of 07/13/2022) Active Problems Problem Noted Date Paroxysmal atrial [...] Declines Shingrix. 2020 CT chest sched @[facility] 08/16 TTE normal EF Gr I hammonds dys @[facility] 10/13 colon WNL fracisco 5y 10/[address] wNL fracisco 1y Feb 2016- son . 01/11 DR Ga-consider Rx/trauma counsellor re: of son Deviated nasal septum 06/28/2016 History of tobacco use 04/19/2015 Overview: quit 03/29/15 COPD, group B, by GOLD 2017 classificati on 01/16/2011 Dyslipidemia HTN, goal below 130/80 Left rotator cuff tear documented as of this encounter (statuses as of 07/13/2022) Resolved Problems Problem Noted Date Resolved Date [...] as of this encounter (statuses as of 07/13/2022) Immunizations Name Administration Dates Next Due COVID-19 mRNA, LNP-s, No Pre serve, 2-Dose Series ([employer]) 06/06/2021,11/28/2020,04/23/2020,07/2020 Covid-19, Mrna, Lnp-s, Pf, B ivalent Booster, 30 Mcg, IM, 12 yrs and above ([employer]) 12/18/2021 H1N1 2009 Influenza, IM 02/03/2009 Pneumococcal [...] Progress Notes * Ludy Dumont RN - 07/13/2022 1:27 PM EDT 1. Follow-up Routine 2. Attempted Phone Call Second Attempt 3. Call Outcome Left Voicemail/Message 4. Plan To attempt another outreach documented in this encounter Plan of Treatment Upcoming Encounters Date Type Specialty Care Team Description 07/31/2022 Imaging Radiology 09/06/2022 Office Visit Family Medicine Dinora Zelaya CRNP [address] [place] [id number] 10/31/2022 Office Visit Cardiology Smitha Mcdermott CRNP [address] [place] [id number] Scheduled Procedures Name Priority Associated Diagnoses Date/Ti [...] exists LUNG CANCER SCREENING - USE SMARTSET 68100 Completed 04/04/2022, 09/15/2020, 10/16/2019, Additional history exists [...] examination documented in this encounter Care Teams Track Repairer Relationship Specialty Start Date End Date Rafa Vargas MD [address] [place] [id number] PCP - General Family Medicine 02/28/17 documented as of this encounter
== END 2023-01-03 12:47 | disposition home or self-care (01) | DRG 243 ==
LOC: ED 07:40 → CC 08:20 → 1E 08:20 → SUATTDRO 08:21 → 1E 08:21 → 4W 12-31 18:53